=== PATIENT | female | born 1935 | race Caucasian/White ===

== ENCOUNTER 2016-05-16 14:59 | Emergency (ER) | payer OTHER ==
[~2016-05-16] VITALS: Ht 160 cm; Wt 98.9 kg
[~2016-05-16 14:59] MED LIST: AMIT50TA3 PO; AMLO-114 PO; APR50 PO; ASPEC81 PO; ATOR-54 PO; CALC0.2510 PO; CITA20TA9 PO; CLTP PO; CRG25 PO; CTP1 PO; ESTR1CRE TOP; FRS/40 PO; GLIP-172 PO; ISR40 PO; KFLHP PO; MULT-506 PO; NRN100 PO; POTA20TA13 PO
[2016-05-16 15:01] VITALS: BP 195/84; PULSE 55; TEMP 36.5; O2SAT 97; Ht 160 cm; Wt 98.9 kg
--- NOTE | 2016-05-16 15:47 | EMERGENCY ROOM VISIT NOTE ---
ED Visit Note First contact with patient: 15:13 Patient evaluated with physician medical library assistant. Patient notes mechanical fall contusing her left lateral humerus. She is noted to have a history of easy bruising and bleeding on aspirin. Agree with management and plan for x-ray and symptomatic management.
[2016-05-16] MEDS ORDERED: HYDR100T3 PO (15:57)
[2016-05-16] MEDS ORDERED: AMT100 PO (15:57)
[2016-05-16] MEDS ORDERED: PRMVC PV (15:57)
[2016-05-16] MEDS ORDERED: CALC-354 PO (15:57)
[2016-05-16] MEDS ORDERED: TRIATAB3 PO (15:57)
[2016-05-16] MEDS ORDERED: ASPI81TA28 PO (15:57)
[2016-05-16] MEDS ORDERED: CRG25 PO (15:57)
[2016-05-16] MEDS ORDERED: CYM30 PO (15:57)
--- NOTE | 2016-05-16 16:02 | DIAGNOSTIC IMAGING REPORT ---
LEFT HUMERUS 2 VIEWS CLINICAL HISTORY: Left arm injury. Bruising. FINDINGS: AP and lateral views of the left humerus are obtained. No prior studies are available for comparison at the time of dictation. The skeletal structures are osteopenic. No left humeral fracture is identified. The elbow and shoulder joints are grossly maintained. Arthritic change is present in the greater tuberosity of the humeral head. There is significant soft tissue edema identified in the left upper extremity around the proximal humeral diaphysis. The partially imaged left lung parenchyma appears clear. IMPRESSION: 1. Generalized osteopenia with no radiographic evidence of left humeral fracture. 2. There is marked soft tissue edema identified in the proximal left upper extremity, likely representing contusion/hematoma. Electronically signed by: Wai Villanueva M.D. 05/16/2016 4:00 PM Dictated Date/Time: 05/16/2016 3:58 PM
--- NOTE | 2016-05-16 16:11 | EMERGENCY ROOM VISIT NOTE ---
ED Visit Note First contact with patient: 15:13 CHIEF COMPLAINT: Arm pain HISTORY OF PRESENT ILLNESS: This 80-year-old female patient presents to the emergency department ambulatory complaining of pain in the left arm. The patient states that she missed a step and fell this morning, striking her left arm on a dresser. She reports pain as well as significant bruising and swelling in the upper portion of the left arm. She has full range of motion of the shoulder and elbow. The patient states the pain is throbbing and 7/10. The patient has taken no medication for relief of the pain. No previous significant previous shoulder disease or injury. No numbness or tingling. She denies neck or back pain. No chest pain or shortness of breath. No abdominal pain or nausea/ vomiting. No cough. REVIEW OF SYSTEMS: A 6 system review of systems was performed with positives and pertinent negatives in the HPI. ALLERGIES: See EMR MEDICATIONS: See med list PMH: Diabetes, heart disease, hypertension, hysterectomy, kidney disease SOCIAL HISTORY: The patient lives locally by herself. Nonsmoker, denies alcohol use. PHYSICAL EXAM: Vital Signs: Reviewed nurse's notes, vital signs stable. GENERAL : This is a 80-year-old female, in no acute distress, but appears to be in pain , well-developed, well-nourished. MUSCULOSKELETAL: There is no deformity of the left arm. There is a large area of ecchymosis and significant swelling to the proximal left humerus. Full range of motion of the shoulder and elbow. There is tenderness over the proximal left humerus, but no tenderness over the shoulder, elbow or forearm. Front End Developer Javascript Html Css strength 5/5. Radial pulse 2+. NECK: No tenderness to palpation over the cervical spine. HEART: Regular rate and rhythm without murmurs gallops or rubs. LUNGS: Clear to auscultation bilaterally without wheezes, rales or rhonchi. No accessory muscle use. No retractions. NEURO: The patient is alert and oriented to person, place, and time. Normal sensation to light and sharp touch. Capillary refill less than 2 seconds. RADIOGRAPHIC FINDINGS: LEFT HUMERUS 2 VIEWS CLINICAL HISTORY: Left arm injury. Bruising. FINDINGS: AP and lateral views of the left humerus are obtained. No prior studies are available for comparison at the time of dictation. The skeletal structures are osteopenic. No left humeral fracture is identified. The elbow and shoulder joints are grossly maintained. Arthritic change is present in the greater tuberosity of the humeral head. There is significant soft tissue edema identified in the left upper extremity around the proximal humeral diaphysis. The partially imaged left lung parenchyma appears clear. IMPRESSION: 1. Generalized osteopenia with no radiographic evidence of left humeral fracture. 2. There is marked soft tissue edema identified in the proximal left upper extremity, likely representing contusion/hematoma. EMERGENCY DEPARTMENT COURSE: I examined the patient. An X-ray of the left humerus was reviewed by myself and radiology and shows no fractures. Clinically , the patient has a hematoma. She does have good pulses and good sensation in her left arm. Compartment syndrome precautions were reviewed with the patient. Conservative measures were discussed. The patient was instructed to follow- up with her primary care provider or orthopedics as needed. She was offered pain medication but declined. She verbalized understanding of my assessment and treatment plan and was discharged home in good condition. The patient was independently evaluated by Dr. German, ED attending physician, who agreed with my assessment and treatment plan. DIAGNOSIS: Hematoma of left arm Problem List Medical Problems: (1) CHF (congestive heart failure) Status: Chronic (2) Diabetes mellitus, type II Status: Chronic (3) Fibromyalgia Status: Chronic (4) Hypertension Status: Chronic Current/Historical Medications Scheduled Amitriptyline HCl (Amitriptyline HCl), 100 MG PO DAILY Aspirin (Aspirin Ec), 81 MG PO DAILY Atorvastatin (Lipitor), 20 MG PO DAILY Calcitriol (Rocaltrol Cap), 0.25 MCG PO DAILY Calcium Carbonate-Cholecalcife (Caltrate 600+D), BID Carvedilol (Carvedilol), 25 MG PO BID Clonidine HCl (Clonidine HCl), 0.1 MG PO BID Duloxetine HCl (Duloxetine HCl), 30 MG PO DAILY Gabapentin (Gabapentin), 200 MG PO BID Glipizide (Glipizide Xl), 2.5 MG PO DAILY Hydralazine HCl (Hydralazine HCl), 100 MG PO TID Multivitamin (Multivitamin), 1 TAB PO DAILY Potassium Chloride Microencaps (Potassium Chloride Er), 20 MEQ PO BID Triamterene/Hctz (Triamterene/Hctz 37.5-25MG), 1 TAB PO DAILY Scheduled PRN Estrogens, Conjugated (Premarin), 1 APPL PV UD PRN for DRYNESS Allergies Coded Allergies: Alendronate (Verified Allergy, Unknown, UNKNOWN, 05/16/16) Cisapride (Verified Allergy, Unknown, UNKNOWN, 05/16/16) Diazepam (Verified Allergy, Unknown, UNKNOWN, 05/16/16) Nabumetone (Verified Allergy, Unknown, UNKNOWN, 05/16/16) Phenazopyridine (Verified Allergy, Unknown, UNKNOWN, 05/16/16) Sulindac (Verified Allergy, Unknown, UNKNOWN, 05/16/16) Vital Signs Date Time Temp Pulse Resp B/P Pulse Ox O2 Delivery O2 Flow Rate FiO2 05/16/16 15:01 36.5 55 18 195/84 97 Room Air Departure Information Impression Primary Impression: Traumatic hematoma of left upper arm Dispostion Home / Self-Care Condition GOOD Referrals Nile Alan M.D. (PCP) Patient Instructions My [facility] Additional Instructions You have been treated in the Emergency Department for a Hematoma of your arm. For pain control, you can use the following [id number] medicines (if >12 yo): - Regular strength (325mg/tab) Tylenol (acetaminophen) 2 tabs every 4-6 hours as needed. Do not exceed 12 tablets in a 24 hour period. Avoid taking more than 4 grams (4000 mg) of Tylenol per day. This includes any other sources of acetaminophen you may take on a regular basis. - Regular strength (200 mg/tab) Advil (ibuprofen) 1-2 tabs every 4-6 hours as needed. Do not exceed a dose of 3200 mg per day. If this is a recent injury (<24 hrs), ice can be applied to the area of pain for the first 3 days to help decrease pain and inflammation. Follow-up with your primary care provider or orthopedics for continued pain. Return to the Emergency Department if your current symptoms worsen despite treatment course outlined above, or if you develop any of the following symptoms : intractable pain despite aforementioned treatment course or new onset of numbness or tingling of the arm.
== END 2016-05-16 16:23 | disposition home or self-care (01) ==
LOC: C.EDB 15:00 → C.EDD 16:23
DX: S40.022A Contusion of left upper arm, initial encounter (principal); E11.9 Type 2 diabetes mellitus without complications; I11.0 Hypertensive heart disease with heart failure; I50.9 Heart failure, unspecified; M79.7 Fibromyalgia; Z79.899 Other long term (current) drug therapy; Z79.84 Long term (current) use of oral hypoglycemic drugs; Z79.82 Long term (current) use of aspirin; W01.190A Fall on same level from slipping, tripping and stumbling with subsequent striking against furniture, initial encounter; Y99.8 Other external cause status

== ENCOUNTER → 2016-06-03 | Outpatient (CLI) | payer OTHER ==
[~2016-06-03] MED LIST changes: -AMIT50TA3 PO; -AMLO-114 PO; +AMT100 PO; -APR50 PO; -ASPEC81 PO; +ASPI81TA28 PO; +CALC-354 PO; -CITA20TA9 PO; +CLOB-77 TOP; +CLOP1TAB15 PO; -CLTP PO; +CYM30 PO; +CYM60 PO; +DOCU50CA10 PO; -ESTR1CRE TOP; -FRS/40 PO; +HYDR100T3 PO; -ISR40 PO; -KFLHP PO; +LSX20 PO; +PRMVC PV; +SPRN100 PO; +TRIATAB3 PO
[2016-06-03 17:26] LABS: BASO % 0.4 %; BASO ABS # 0.03 K/uL (0-0.2); COMPLETE YES; HEMATOCRIT 42.2 % (37-47); IG% 0.1 %; LYMPH % 17.8 %; LYMPH ABS # 1.26 K/uL (1.2-3.4); MEAN CELL VOLUME 92.7 fL (80-100); MEAN CORPUSCULAR HEMOGLOBIN 31.2 pg (25-34); MEAN CORPUSCULAR HGB CONC 33.6 g/dl (32-36); MEAN PLATELET VOLUME 9.8 fL (7.4-10.4); MONO % 10.7 %; PLATELET COUNT 301 K/uL (130-400); RED BLOOD COUNT 4.55 M/uL (4.2-5.4); WHITE BLOOD COUNT 7.07 K/uL (4.8-10.8)
[2016-06-03 17:32] LABS: ALT/SGPT 26 U/L (12-78); BLOOD UREA NITROGEN 22 mg/dl (7-18); BUN/CREATININE RATIO 18.5 (10-20); CALCIUM 9.4 mg/dl (8.5-10.1); CARBON DIOXIDE 27 mmol/L (21-32); CHLORIDE 100 mmol/L (98-107); CHOLESTEROL 120 mg/dl (0-200); GLUCOSE 116 mg/dl (70-99); POTASSIUM 4.1 mmol/L (3.5-5.1); SODIUM 137 mmol/L (136-145)
[2016-06-03 17:43] LABS: ALB/GLOB RATIO 0.8 (0.9-2); ALKALINE PHOSPHATASE 103 U/L (45-117); AST/SGOT 18 U/L (15-37); CHOLESTEROL/HDL RATIO 2.1; HDL CHOLESTEROL 56 mg/dl; LDL CHOLESTEROL CALCULATED 41 mg/dl; TRIGLYCERIDES 113 mg/dl (0-150); VERY LOW DENSITY LIPOPROT CALC 23 mg/dl
[2016-06-03 17:55] LABS: ESTIMATED AVERAGE GLUCOSE 126 mg/dl; HA1C FLAG Normal (Normal)
== END | disposition home or self-care (01) ==
LOC: C.LABBFT 17:55
PROVIDERS: ATTEND Internal Medicine
DX: E11.9 Type 2 diabetes mellitus without complications (principal); E78.5 Hyperlipidemia, unspecified

== ENCOUNTER → 2016-08-21 | Outpatient (CLI) | payer OTHER ==
[~2016-08-21] MED LIST changes: +CIPR1TAB11 PO
[2016-08-21 16:51] LABS: BASO % 0.6 %; BASO ABS # 0.04 K/uL (0-0.2); COMPLETE YES; EOS % 5.5 %; HEMATOCRIT 43.7 % (37-47); IG% 0.1 %; LYMPH % 21.3 %; LYMPH ABS # 1.52 K/uL (1.2-3.4); MEAN CELL VOLUME 93.2 fL (80-100); MEAN CORPUSCULAR HEMOGLOBIN 30.3 pg (25-34); MEAN CORPUSCULAR HGB CONC 32.5 g/dl (32-36); MEAN PLATELET VOLUME 9.5 fL (7.4-10.4); MONO % 11.7 %; NEUT % 60.8 %; PLATELET COUNT 338 K/uL (130-400); RED BLOOD COUNT 4.69 M/uL (4.2-5.4); WHITE BLOOD COUNT 7.15 K/uL (4.8-10.8)
[2016-08-21 17:07] LABS: BLOOD UREA NITROGEN 16 mg/dl (7-18); CALCIUM 9.3 mg/dl (8.5-10.1); CARBON DIOXIDE 25 mmol/L (21-32); CHLORIDE 106 mmol/L (98-107); GLUCOSE 104 mg/dl (70-99); POTASSIUM 3.7 mmol/L (3.5-5.1); SODIUM 142 mmol/L (136-145)
[2016-08-21 17:10] LABS: URINE APPEARANCE CLOUDY (CLEAR); URINE BILIRUBIN NEG (NEG); URINE COLOR YELLOW; URINE EPITHELIAL CELL AUTO >30 /lpf (0-5); URINE NITRITE POS (NEG); URINE SPECIFIC GRAVITY 1.016 (1.000-1.030); UROBILINOGEN NEG (NEG)
[2016-08-21 17:23] LABS: MANUAL MICROSCOPIC REQUIRED? NO; REVIEW REQ? NO
[2016-08-21 17:39] LABS: URINE PROTIEN/CREAT RATIO 0.3 (0-0.2); URINE TOTAL PROTEIN 22.7 mg/dl (0-11.9)
== END | disposition home or self-care (01) ==
LOC: C.LABBFT 15:19
PROVIDERS: ATTEND Internal Medicine
DX: I10 Essential (primary) hypertension (principal); N28.9 Disorder of kidney and ureter, unspecified; I70.1 Atherosclerosis of renal artery

== ENCOUNTER → 2016-08-27 | Outpatient (CLI) | payer OTHER ==
--- NOTE | 2016-08-27 10:10 | DIAGNOSTIC IMAGING REPORT ---
ULTRASOUND KIDNEYS AND BLADDER CLINICAL HISTORY: Hypertension. Nonfunctioning kidney. COMPARISON STUDY: No priors. TECHNIQUE: Real-time, grayscale, and color flow sonography of the kidneys and bladder is performed. Images are reviewed in the transverse and longitudinal planes. FINDINGS: Kidneys: The right kidney is markedly atrophic and echogenic. The left kidney demonstrates mild cortical atrophy. The right kidney measures 6.4 x 3.3 x 3.4 cm and the left kidney measures 11.4 x 5.6 x 6.1 cm. There is no hydronephrosis. No shadowing renal calculi are identified. A 1.2 cm simple cyst is noted in the right kidney. A 1.1 cm cyst is present in the left upper pole. There is no sonographic evidence of contour deforming renal mass lesion. No perinephric fluid is identified. Bladder: The bladder is partially decompressed and grossly unremarkable. Only a left ureteral jet was seen. IMPRESSION: 1. The right kidney is markedly atrophic and echogenic. 2. The left kidney demonstrates only mild cortical atrophy. There is no hydronephrosis. 3. The bladder was decompressed and grossly unremarkable. Only a left ureteral jet was seen. Electronically signed by: Wai Villanueva M.D. 08/27/2016 10:09 AM Dictated Date/Time: 08/27/2016 10:02 AM
== END | disposition home or self-care (01) ==
LOC: C.ULTR 09:22
PROVIDERS: ATTEND Internal Medicine
DX: I10 Essential (primary) hypertension (principal); I70.1 Atherosclerosis of renal artery; N28.9 Disorder of kidney and ureter, unspecified

== ENCOUNTER → 2016-10-03 | Outpatient (CLI) | payer OTHER ==
[2016-10-02 17:08] LABS: BLOOD UREA NITROGEN 19 mg/dl (7-18); BUN/CREATININE RATIO 14.5 (10-20); CALCIUM 9.2 mg/dl (8.5-10.1); CARBON DIOXIDE 26 mmol/L (21-32); CHLORIDE 107 mmol/L (98-107); GLUCOSE 123 mg/dl (70-99); MAGNESIUM 2.5 mg/dl (1.8-2.4); PHOSPHORUS 3.9 mg/dl (2.5-4.9); POTASSIUM 4.3 mmol/L (3.5-5.1); SODIUM 141 mmol/L (136-145)
[~2016-10-03] MED LIST changes: -CIPR1TAB11 PO
== END | disposition home or self-care (01) ==
LOC: C.LABBFT 15:24
PROVIDERS: ATTEND Internal Medicine Nephrology
DX: N18.3 Chronic kidney disease, stage 3 (moderate) (principal)

== ENCOUNTER → 2016-10-19 | Outpatient (CLI) | payer OTHER ==
[2016-10-19 17:38] LABS: BLOOD UREA NITROGEN 35 mg/dl (7-18); BUN/CREATININE RATIO 22.1 (10-20); CALCIUM 9.5 mg/dl (8.5-10.1); CARBON DIOXIDE 24 mmol/L (21-32); CHLORIDE 103 mmol/L (98-107); GLUCOSE 229 mg/dl (70-99); MAGNESIUM 1.9 mg/dl (1.8-2.4); POTASSIUM 4.4 mmol/L (3.5-5.1); SODIUM 136 mmol/L (136-145)
[2016-10-19 17:39] LABS: PHOSPHORUS 3.4 mg/dl (2.5-4.9)
== END | disposition home or self-care (01) ==
LOC: C.LABBFT 15:27
PROVIDERS: ATTEND Internal Medicine Nephrology
DX: N18.3 Chronic kidney disease, stage 3 (moderate) (principal)

== ENCOUNTER → 2016-11-17 | Outpatient (CLI) | payer OTHER ==
[2016-11-17 17:51] LABS: BLOOD UREA NITROGEN 20 mg/dl (7-18); BUN/CREATININE RATIO 17.1 (10-20); CALCIUM 9.6 mg/dl (8.5-10.1); CARBON DIOXIDE 27 mmol/L (21-32); CHLORIDE 102 mmol/L (98-107); GLUCOSE 82 mg/dl (70-99); PHOSPHORUS 3.6 mg/dl (2.5-4.9); POTASSIUM 3.8 mmol/L (3.5-5.1); SODIUM 139 mmol/L (136-145)
== END | disposition home or self-care (01) ==
LOC: C.LABBFT 12:31
PROVIDERS: ATTEND Internal Medicine Nephrology
DX: N18.3 Chronic kidney disease, stage 3 (moderate) (principal)

== ENCOUNTER 2016-12-08 11:28 | Emergency (ER) | payer OTHER ==
[~2016-12-08 11:28] MED LIST changes: -CLOB-77 TOP; -CLOP1TAB15 PO; -CYM60 PO; -DOCU50CA10 PO; -LSX20 PO; -SPRN100 PO
[2016-12-08 11:51] VITALS: TEMP 36.6; Ht 162.6 cm
[2016-12-08 14:10] LABS: BASO % 0.3 %; BASO ABS # 0.03 K/uL (0-0.2); COMPLETE YES; EOS % 3.1 %; HEMATOCRIT 29.9 % (37-47); IG% 0.4 %; LYMPH % 17.6 %; LYMPH ABS # 1.73 K/uL (1.2-3.4); MEAN CELL VOLUME 93.7 fL (80-100); MEAN CORPUSCULAR HGB CONC 33.1 g/dl (32-36); MEAN PLATELET VOLUME 9.2 fL (7.4-10.4); MONO % 9.9 %; NEUT % 68.7 %; PLATELET COUNT 323 K/uL (130-400); RED BLOOD COUNT 3.19 M/uL (4.2-5.4); WHITE BLOOD COUNT 9.85 K/uL (4.8-10.8)
[2016-12-08 14:20] LABS: PARTIAL THROMBOPLASTIN RATIO 0.9; PROTHROMBIN TIME (PATIENT) 10.4 SECONDS (9.0-12.0)
[2016-12-08 14:31] LABS: BLOOD UREA NITROGEN 29 mg/dl (7-18); BUN/CREATININE RATIO 20.8 (10-20); CALCIUM 9.7 mg/dl (8.5-10.1); CARBON DIOXIDE 27 mmol/L (21-32); CHLORIDE 100 mmol/L (98-107); GLUCOSE 129 mg/dl (70-99); SODIUM 135 mmol/L (136-145)
[2016-12-08] MEDS ORDERED: LSX20 PO (16:00)
[2016-12-08] MEDS ORDERED: CLOP1TAB15 PO (16:00)
[2016-12-08] MEDS ORDERED: SPRN100 PO (16:00)
[2016-12-08] MEDS ORDERED: CLOB-77 TOP (16:00)
[2016-12-08] MEDS ORDERED: DOCU50CA10 PO (16:00)
[2016-12-08] MEDS ORDERED: CYM60 PO (16:00)
[2016-12-08 16:08] VITALS: BP 131/63; PULSE 67; O2SAT 95
--- NOTE | 2016-12-08 16:11 | DIAGNOSTIC IMAGING REPORT ---
ART DOP DUPLEX LW EXT UNI CLINICAL HISTORY: swelling rle-r/o pseudo pain. Edema. TECHNIQUE: Ultrasound COMPARISON STUDY: 05/29/2010 FINDINGS: No evidence for pseudoaneurysm or vascular malformation. 5 x 4 x 2 cm collection adjacent to a prior operative site possibly relating to hematoma. IMPRESSION: Probable hematoma right inguinal region. No evidence of pseudoaneurysm. The above report was generated using voice recognition software. It may contain grammatical, syntax or spelling errors. Electronically signed by: Alirio Mehta M.D. 12/08/2016 4:10 PM Dictated Date/Time: 12/08/2016 4:07 PM
[2016-12-08] MEDS ORDERED: OPTIRAY 320 IV PRN (16:30)
--- NOTE | 2016-12-08 16:58 | DIAGNOSTIC IMAGING REPORT ---
ABD/PELVIS IV CONTRAST ONLY CT DOSE: 994.37 mGy.cm HISTORY: Pain lower abd pain w/ recent renal art stent and drop in hgb TECHNIQUE: Multiaxial CT images of the abdomen and pelvis were performed following the use of intravenous contrast. A dose lowering technique was utilized adhering to the principles of ALARA. COMPARISON STUDY: None. FINDINGS: Mild bibasilar atelectasis. Mild fatty infiltration of liver. Gallbladder appears to be gallstone filled. Mild fatty replacement of the pancreas. Atrophy of the right kidney. Left renal arterial stent proximal involving the proximal left renal artery. Enhancement characteristics of the left kidney are unremarkable. There is a small 1 cm upper pole left renal cyst. Several much smaller renal cysts are present bilaterally. Bowel pattern overall is nonobstructive. Findings of mild chronic sigmoid colonic diverticulosis. There is no evidence for acute diverticulitis. Appears to be probable hematoma anterior to the right hip and right upper thigh region. Maximum CT measurements are approximately 6.5 cm. A smaller hematoma versus reactive node is present medial to the larger hematoma measuring 3.0 cm. Bladder is midline. There are no contained calcifications. Is mild inflammatory change of the subcutaneous fat overlying the right thigh suggesting a mild cellulitis. IMPRESSION: 1. Right inguinal and anterior thigh hematoma.. 2. Atrophy right kidney. 3. Normal enhancement characteristics of the left kidney with placement of a left renal proximal arterial stent. 4. Gallstone filled gallbladder. 5. Fatty infiltration of liver. 6. Mild chronic sigmoid diverticulosis. 7. 2.5 cm left adrenal adenoma The above report was generated using voice recognition software. It may contain grammatical, syntax or spelling errors. Electronically signed by: Alirio Mehta M.D. 12/08/2016 4:56 PM Dictated Date/Time: 12/08/2016 4:50 PM
--- NOTE | 2016-12-08 17:25 | EMERGENCY ROOM VISIT NOTE ---
History Report prepared by Winnie: Sarita De La O Under the Supervision of: Dr. Micky Armas D.O. First contact with patient: 13:22 Chief Complaint: LEG PAIN,LEG INJURY Stated Complaint: LARGE BRUISE ON WHOLE LEG History of Present Illness The patient is a 81 year old female who presents to the Emergency Room with complaints of worsening right leg pain for the past 4 days. The patient only has her left kidney. She has two arteries to the left kidney and had two stents placed 4 days ago. She states that after the surgery she noticed some bruising to her right groin and thigh. The patient states that her bruising has worsened over the past few days and is more painful today. She rates her current pain as a 7/10 in severity. She called her surgeon in [place] today and was advised to come to the ED for further evaluation. Pt denies headache, fevers, chest pain, shortness of breath, nausea, vomiting, diarrhea, abdominal pain, pain with urination, and melena. She was recently started on Plavix. Source of History: patient Onset: 4 days ago Position: leg (right) Symptom Intensity: 7/10 Quality: other (bruising) Timing: worsening Modifying Factors (Worsening): other (recent surgery) Associated Symptoms: No fevers, No headache, No chest pain, No SOB, No nausea, No vomiting, No abdominal pain, No melena, No diarrhea, No urinary symptoms Review of Systems See HPI for pertinent positives & negatives. A total of 10 systems reviewed and were otherwise negative. Past Medical & Surgical Medical Problems: (1) CHF (congestive heart failure) (2) Diabetes mellitus, type II (3) Fibromyalgia (4) Hypertension Family History Non-pertinent due to advanced age. Social History Smoking Status: Never Smoker Drug Use: none Marital Status: Housing Status: lives alone Occupation Status: retired Current/Historical Medications Scheduled Amitriptyline HCl (Amitriptyline HCl), 100 MG PO DAILY Aspirin (Aspirin Ec), 81 MG PO DAILY Atorvastatin (Lipitor), 20 MG PO DAILY Calcitriol (Rocaltrol Cap), 0.25 MCG PO DAILY Calcium Carbonate-Cholecalcife (Caltrate 600+D), 1 TAB PO BID Carvedilol (Carvedilol), 25 MG PO BID Clobetasol Propionate (Temovate), 1 APPLN TOP BID Clonidine HCl (Clonidine HCl), 0.1 MG PO BID Clopidogrel (Plavix), 75 MG PO DAILY Duloxetine HCl (Duloxetine HCl), 60 MG PO DAILY Furosemide (Furosemide), 20 MG PO DAILY Glipizide (Glipizide Xl), 2.5 MG PO DAILY Hydralazine HCl (Hydralazine HCl), 100 MG PO TID Multivitamin (Multivitamin), 1 TAB PO DAILY Spironolactone (Spironolactone), 100 MG PO DAILY Scheduled PRN Docusate Sodium (Colace Clear), 50 MG PO DAILY PRN for Constipation Estrogens, Conjugated (Premarin), 1 APPL PV UD PRN for DRYNESS Allergies Coded Allergies: Alendronate (Verified Allergy, Unknown, UNKNOWN, 05/16/16) Cisapride (Verified Allergy, Unknown, UNKNOWN, 05/16/16) Diazepam (Verified Allergy, Unknown, UNKNOWN, 05/16/16) Nabumetone (Verified Allergy, Unknown, UNKNOWN, 05/16/16) Phenazopyridine (Verified Allergy, Unknown, UNKNOWN, 05/16/16) Sulindac (Verified Allergy, Unknown, UNKNOWN, 05/16/16) Physical Exam Vital Signs Date Time Temp Pulse Resp B/P (MAP) Pulse Ox O2 Delivery O2 Flow Rate FiO2 12/08/16 16:08 67 20 131/63 95 Room Air 12/08/16 13:22 61 18 111/63 97 Room Air 12/08/16 11:51 36.6 59 18 113/62 96 Room Air Physical Exam GENERAL: alert, sitting up in bed, disheveled, chronically ill appearing, well nourished, no distress, non-toxic EYE EXAM: normal conjunctiva OROPHARYNX: no exudate, no erythema, lips, buccal mucosa, and tongue normal and mucous membranes are moist NECK: supple, no nuchal rigidity, no adenopathy, non-tender LUNGS: Clear to auscultation. Normal chest wall mechanics HEART: no murmurs, S1 normal and S2 normal ABDOMEN: abdomen soft, non-tender, normo-active bowel sounds, no masses, no rebound or guarding. Mild bruising in lower right pelvis. RECTAL: Heme negative. BACK: Back is symmetrical on inspection and there is no deformity, no midline tenderness, no CVA tenderness. SKIN: no rashes and no bruising UPPER EXTREMITIES: upper extremities are grossly normal. LOWER EXTREMITIES: Bruising on the right medial thigh tracking to just proximal to the right knee. DP 2/4, gross sensation intact, FROM of the hip, knee, and ankle. NEURO EXAM: Normal sensorium, cranial nerves II-XII grossly intact, normal speech, no gross weakness of arms, no gross weakness of legs. Medical Decision & Procedures ER Provider Diagnostic Interpretation: Radiology results as stated below per my review and the radiologist's interpretation: ART DOP DUPLEX LW EXT UNI CLINICAL HISTORY: swelling rle-r/o pseudo pain. Edema. TECHNIQUE: Ultrasound COMPARISON STUDY: 05/29/2010 FINDINGS: No evidence for pseudoaneurysm or vascular malformation. 5 x 4 x 2 cm collection adjacent to a prior operative site possibly relating to hematoma. IMPRESSION: Probable hematoma right inguinal region. No evidence of pseudoaneurysm. The above report was generated using voice recognition software. It may contain grammatical, syntax or spelling errors. Electronically signed by: Alirio Mehta M.D. 12/08/2016 4:10 PM Dictated Date/Time: 12/08/2016 4:07 PM ABD/PELVIS IV CONTRAST ONLY CT DOSE: 994.37 mGy.cm HISTORY: Pain lower abd pain w/ recent renal art stent and drop in hgb TECHNIQUE: Multiaxial CT images of the abdomen and pelvis were performed following the use of intravenous contrast. A dose lowering technique was utilized adhering to the principles of ALARA. COMPARISON STUDY: None. FINDINGS: Mild bibasilar atelectasis. Mild fatty infiltration of liver. Gallbladder appears to be gallstone filled. Mild fatty replacement of the pancreas. Atrophy of the right kidney. Left renal arterial stent proximal involving the proximal left renal artery. Enhancement characteristics of the left kidney are unremarkable. There is a small 1 cm upper pole left renal cyst. Several much smaller renal cysts are present bilaterally. Bowel pattern overall is nonobstructive. Findings of mild chronic sigmoid colonic diverticulosis. There is no evidence for acute diverticulitis. Appears to be probable hematoma anterior to the right hip and right upper thigh region. Maximum CT measurements are approximately 6.5 cm. A smaller hematoma versus reactive node is present medial to the larger hematoma measuring 3.0 cm. Bladder is midline. There are no contained calcifications. Is mild inflammatory change of the subcutaneous fat overlying the right thigh suggesting a mild cellulitis. IMPRESSION: 1. Right inguinal and anterior thigh hematoma.. 2. Atrophy right kidney. 3. Normal enhancement characteristics of the left kidney with placement of a left renal proximal arterial stent. 4. Gallstone filled gallbladder. 5. Fatty infiltration of liver. 6. Mild chronic sigmoid diverticulosis. 7. 2.5 cm left adrenal adenoma The above report was generated using voice recognition software. It may contain grammatical, syntax or spelling errors. Electronically signed by: Alirio Mehta M.D. 12/08/2016 4:56 PM Dictated Date/Time: 12/08/2016 4:50 PM Laboratory Results 12/08/16 13:50 Red Blood Count 3.19, Mean Corpuscular Volume 93.7, Mean Corpuscular Hemoglobin 31.0, Mean Corpuscular Hemoglobin Concent 33.1, Mean Platelet Volume 9.2, Neutrophils (%) (Auto) 68.7, Lymphocytes (%) (Auto) 17.6, Monocytes (%) (Auto) 9.9, Eosinophils (%) (Auto) 3.1, Basophils (%) (Auto) 0.3, Neutrophils # (Auto) 6.76, Lymphocytes # (Auto) 1.73, Monocytes # (Auto) 0.98, Eosinophils # (Auto) 0.31, Basophils # (Auto) 0.03 12/08/16 13:50 Test 12/08/16 13:50 White Blood Count 9.85 K/uL (4.8-10.8) Red Blood Count 3.19 M/uL (4.2-5.4) Hemoglobin 9.9 g/dL (12.0-16.0) Hematocrit 29.9 % (37-47) Mean Corpuscular Volume 93.7 fL (80-100) Mean Corpuscular Hemoglobin 31.0 pg (25-34) Mean Corpuscular Hemoglobin Concent 33.1 g/dl (32-36) Platelet Count 323 K/uL (130-400) Mean Platelet Volume 9.2 fL (7.4-10.4) Neutrophils (%) (Auto) 68.7 % Lymphocytes (%) (Auto) 17.6 % Monocytes (%) (Auto) 9.9 % Eosinophils (%) (Auto) 3.1 % Basophils (%) (Auto) 0.3 % Neutrophils # (Auto) 6.76 K/uL (1.4-6.5) Lymphocytes # (Auto) 1.73 K/uL (1.2-3.4) Monocytes # (Auto) 0.98 K/uL (0.11-0.59) Eosinophils # (Auto) 0.31 K/uL (0-0.5) Basophils # (Auto) 0.03 K/uL (0-0.2) RDW Standard Deviation 46.4 fL (36.4-46.3) RDW Coefficient of Variation 13.6 % (11.5-14.5) Immature Granulocyte % (Auto) 0.4 % Immature Granulocyte # (Auto) 0.04 K/uL (0.00-0.02) Prothrombin Time 10.4 SECONDS (9.0-12.0) Prothromb Time International Ratio 1.0 (0.9-1.1) Activated Partial Thromboplast Time 22.6 SECONDS (21.0-31.0) Partial Thromboplastin Ratio 0.9 Anion Gap 8.0 mmol/L (3-11) Estimated GFR () 41.0 Estimated GFR (Non- 35.4 BUN/Creatinine Ratio 20.8 (10-20) Calcium Level 9.7 mg/dl (8.5-10.1) Laboratory results per my review. ED Course ED COURSE: Vital signs were reviewed and showed bradycardic. The patients medical record was reviewed The above diagnostic studies were performed and reviewed. ED treatments and interventions as stated above. 1326: The patient was evaluated in room B11B. A complete history and physical examination was performed. 1349: I spoke with Dr. Escobar of vascular at [facility]. We discussed the patient 's case. They had advised the patient to come to their office for evaluation. 1451: I updated the patient on her results. 1656: Rectal exam performed with resident at bedside. 1705: Upon reevaluation, the patient is doing well. I discussed my findings with the patient and she understands and agrees with the treatment plan. Based on the patients age, coexisting illnesses, exam and lab findings the decision to treat as an outpatient was made. The patient remained stable while under my care. The patient appeared well at the time of discharge. Medical Decision Differential diagnosis: Etiologies such as DVT, musculoskeletal, infection, joint effusion, trauma, lymphedema, idiopathic, CHF, as well as others were entertained. Patient is a an 81-year-old female that presents to ER following having a stent placed in her left renal artery at [facility] on Wednesday. She notes she was discharged that day and had bruising in her right groin/thigh. The bruising has worsened. She discussed this with this with vascular surgery and was referred into the ER. I did discuss the case w/ vasc surg from [facility] as well and agreed with ultrasound and workup. Labs show that hemoglobin dropped from 12 to 10. She was heme negative. Ultrasound shows no pseudoaneurysm. DP is intact on the right. CT of abdomen and pelvis was performed with a drop in hemoglobin and bruising in her abdomen. CT was unremarkable but did show a hematoma in the right thigh. Patient was updated in regards to her findings. She rested comfortably. She was discharged to follow-up with PCP and vascular surgery. Discussed with Pt concerning signs and symptoms to watch out for. Pt was instructed to follow up with their PCP and discussed with the patient their option to return to the ED at anytime for persistent or worsening symptoms. The appropriate anticipatory guidance and out-patient management, including indications for return to the emergency department, were explained at length to the patient and understood. Medication Reconcilliation Current Medication List: was personally reviewed by me Blood Pressure Screening Patient's blood pressure: Normal blood pressure Consults Time Called: 1341 Consulting Physician: Dr. Escobar Returned Call: [address] Escobar of vascular at [facility]. We discussed the patient's case. They had advised the patient to come to their office for evaluation. Impression Primary Impression: Postoperative hematoma Additional Impression: Anemia Scribe Attestation The scribe's documentation has been prepared under my direction and personally reviewed by me in its entirety. I confirm that the note above accurately reflects all work, treatment, procedures, and medical decision making performed by me. Departure Information Dispostion Home / Self-Care Referrals Nile Alan M.D. (PCP) Forms HOME CARE DOCUMENTATION FORM, IMPORTANT VISIT INFORMATION Patient Instructions ED Hematoma, [facility] Additional Instructions Please follow up with your primary care doctor/vascular surgery with in the next 24 hours. Any worsening of your symptoms, please return to the ED immediately. This includes any fevers greater than 100.4, worsening pain, increased swelling, numbness in your leg, weakness in your leg, chest pain, shortness breath, persistent nausea, vomiting, unable to eat or drink, or any other concerning signs or symptoms from your standpoint. The bruising will take several weeks to improved/resolve. Problem Qualifiers Primary Impression: Postoperative hematoma Surgical complication system/body Area: subcutaneous tissue Procedure type: non-dermatologic Qualified Codes: L76.32 - Postprocedural hematoma of skin and subcutaneous tissue following other procedure Additional Impression: Anemia Anemia type: unspecified type Qualified Codes: D64.9 - Anemia, unspecified
== END 2016-12-08 17:27 | disposition home or self-care (01) ==
LOC: C.EDB 11:30
DX: L76.32 Postprocedural hematoma of skin and subcutaneous tissue following other procedure (principal); D64.9 Anemia, unspecified; Z79.01 Long term (current) use of anticoagulants; E11.9 Type 2 diabetes mellitus without complications; M79.7 Fibromyalgia; I10 Essential (primary) hypertension; Z79.82 Long term (current) use of aspirin; Z79.899 Other long term (current) drug therapy

== ENCOUNTER → 2016-12-31 | Outpatient (CLI) | payer OTHER ==
[~2016-12-31] MED LIST changes: +CLOB-77 TOP; +CLOP1TAB15 PO; -CYM30 PO; +CYM60 PO; +DOCU50CA10 PO; +LSX20 PO; -NRN100 PO; -POTA20TA13 PO; +SPRN100 PO; -TRIATAB3 PO
[2016-12-31 17:22] LABS: HEMATOCRIT 39.3 % (37-47); MEAN CELL VOLUME 99.5 fL (80-100); MEAN CORPUSCULAR HEMOGLOBIN 31.1 pg (25-34); MEAN CORPUSCULAR HGB CONC 31.3 g/dl (32-36); MEAN PLATELET VOLUME 9.1 fL (7.4-10.4); PLATELET COUNT 315 K/uL (130-400); RED BLOOD COUNT 3.95 M/uL (4.2-5.4); WHITE BLOOD COUNT 6.94 K/uL (4.8-10.8)
[2016-12-31 17:43] LABS: BLOOD UREA NITROGEN 23 mg/dl (7-18); CALCIUM 9.5 mg/dl (8.5-10.1); CARBON DIOXIDE 25 mmol/L (21-32); CHLORIDE 106 mmol/L (98-107); GLUCOSE 114 mg/dl (70-99); MAGNESIUM 2.1 mg/dl (1.8-2.4); PHOSPHORUS 2.9 mg/dl (2.5-4.9); POTASSIUM 4.3 mmol/L (3.5-5.1); SODIUM 139 mmol/L (136-145)
== END | disposition home or self-care (01) ==
LOC: C.LABBFT 12:53
PROVIDERS: ATTEND Internal Medicine Nephrology
DX: I70.1 Atherosclerosis of renal artery (principal); S80.10XA Contusion of unspecified lower leg, initial encounter; X58.XXXA Exposure to other specified factors, initial encounter; I10 Essential (primary) hypertension

== ENCOUNTER 2017-01-28 19:26 | Emergency (ER) | payer OTHER ==
[~2017-01-28] VITALS: Ht 160 cm; Wt 91.1 kg
[2017-01-28 19:46] VITALS: TEMP 36.8; Ht 160 cm; Wt 91.1 kg
--- NOTE | 2017-01-28 20:07 | EMERGENCY ROOM VISIT NOTE ---
History First contact with patient: 19:48 Chief Complaint: FALL Stated Complaint: FALL/ HEAD PAIN, NAUSEA History of Present Illness The patient is a 81 year old female with a history of DM2, CHF, HTN, and kidney disease (only her left one is working) who was brought to the Emergency Room by ambulance due to a fall. She states that she was hosing her porch and that she "turned the wrong way" and fell onto her back. She states that she remembers falling, and denies chest pain, palpitations, shortness of breath, diaphoresis and lightheadedness beforehand. She is currently complaining of pain at the back of her head, nausea and dizziness. She states she does not check her blood sugar at home. Her daughter was present at the bedside, but did not witness the fall. She states her mother has been falling more frequently, and that she has a history of 2 previous concussions 3 years ago. She is also concerned as she feels her mother's short term memory and cognition has been slowly declining over the last few months. Review of Systems See HPI for pertinent positives & negatives. A total of 10 systems reviewed and were otherwise negative. Past Medical/Surgical History Medical Problems: (1) CHF (congestive heart failure) (2) Diabetes mellitus, type II (3) Fibromyalgia (4) Hypertension Social History Smoking Status: Former Smoker Drug Use: none Marital Status: Housing Status: lives alone Occupation Status: retired Current/Historical Medications Scheduled Amitriptyline HCl (Amitriptyline HCl), 100 MG PO DAILY Aspirin (Aspirin Ec), 81 MG PO DAILY Atorvastatin (Lipitor), 20 MG PO DAILY Calcitriol (Rocaltrol Cap), 0.25 MCG PO DAILY Calcium Carbonate-Cholecalcife (Caltrate 600+D), 1 TAB PO BID Carvedilol (Carvedilol), 25 MG PO BID Clobetasol Propionate (Temovate), 1 APPLN TOP BID Clopidogrel (Plavix), 75 MG PO DAILY Duloxetine HCl (Duloxetine HCl), 60 MG PO DAILY Glipizide (Glipizide Xl), 2.5 MG PO DAILY Hydralazine HCl (Hydralazine HCl), 100 MG PO TID Multivitamin (Multivitamin), 1 TAB PO DAILY Spironolactone (Spironolactone), 100 MG PO DAILY Scheduled PRN Docusate Sodium (Colace Clear), 50 MG PO DAILY PRN for Constipation Estrogens, Conjugated (Premarin), 1 APPL PV UD PRN for DRYNESS Physical Exam Vital Signs Date Time Temp Pulse Resp B/P (MAP) Pulse Ox O2 Delivery O2 Flow Rate FiO2 01/28/17 21:25 65 18 181/81 96 Room Air 01/28/17 20:08 63 01/28/17 19:46 36.8 65 18 184/80 96 Room Air Physical Exam HEENT: Head - normocephalic and atraumatic. She reports tenderness over the occipital area. No lacerations, no bruises. Pupils are equal, round, and reactive to light. Extraocular eye muscles are intact and sclera are anicteric. Ears - bilaterally patent canals with noninjected tympanic membranes and no evidence of hemotympanum. Nose - moist nasal mucosa without discharge. Mouth - moist buccal mucosa. Oropharynx is nonerythematous and there is no tonsillar exudate or edema noted. Neck: Supple; no JVD, nuchal rigidity, cervical lymphadenopathy, or auscultated bruits. She reports slight tenderness Heart: Regular rate and rhythm. There is a normal S1 and S2 with no murmurs, clicks, or gallops appreciated. Lungs: Clear to auscultation bilaterally with no wheezes, rales, or rhonchi. Abdomen: Soft, completely nontender, nondistended, with good bowel sounds. There are no palpable pulsatile masses or hepatosplenomegaly. There is no guarding, rigidity, or rebound noted. Extremities: No evidence of cyanosis, clubbing, or edema. There are easily palpable peripheral pulses. Neuro:The patient is awake and alert, oriented to day, time, and place. Muscle strength is 5/5 in all 4 extremities. The patient has equal sales exhibitor strength and equal pedal push and pull. There are no cerebellar signs. Medical Decision & Procedures ER Provider Diagnostic Interpretation: CT HEAD WITHOUT CONTRAST (CT) CLINICAL HISTORY: Head trauma. Change in mental status. COMPARISON STUDY: 04/02/2016 TECHNIQUE: Axial CT of the brain is performed from the vertex to the skull base. IV contrast was not administered for this examination. A dose lowering technique was utilized adhering to the principles of ALARA. CT DOSE: 638.56 mGycm FINDINGS: No intra or extra-axial mass lesions are visualized. There is no CT evidence of acute cortical infarction. There is no evidence of midline shift. There is no acute hemorrhage. No calvarial fractures are visualized. There are patchy white matter hypodensities likely on a small vessel basis. There is no evidence of pathologic ventricular dilatation. There is no evidence of acute sinusitis IMPRESSION: No acute intracranial findings Laboratory Results 01/28/17 20:10 Red Blood Count 4.40, Mean Corpuscular Volume 96.8, Mean Corpuscular Hemoglobin 32.3, Mean Corpuscular Hemoglobin Concent 33.3, Mean Platelet Volume 9.2, Neutrophils (%) (Auto) 79.0, Lymphocytes (%) (Auto) 11.6, Monocytes (%) (Auto) 6.5, Eosinophils (%) (Auto) 2.4, Basophils (%) (Auto) 0.2, Neutrophils # (Auto) 7.27, Lymphocytes # (Auto) 1.07, Monocytes # (Auto) 0.60, Eosinophils # (Auto) 0.22, Basophils # (Auto) 0.02 01/28/17 20:10 Test 01/28/17 20:04 01/28/17 20:10 01/28/17 21:07 Bedside Glucose 122 mg/dl (70-90) White Blood Count 9.21 K/uL (4.8-10.8) Red Blood Count 4.40 M/uL (4.2-5.4) Hemoglobin 14.2 g/dL (12.0-16.0) Hematocrit 42.6 % (37-47) Mean Corpuscular Volume 96.8 fL (80-100) Mean Corpuscular Hemoglobin 32.3 pg (25-34) Mean Corpuscular Hemoglobin Concent 33.3 g/dl (32-36) Platelet Count 285 K/uL (130-400) Mean Platelet Volume 9.2 fL (7.4-10.4) Neutrophils (%) (Auto) 79.0 % Lymphocytes (%) (Auto) 11.6 % Monocytes (%) (Auto) 6.5 % Eosinophils (%) (Auto) 2.4 % Basophils (%) (Auto) 0.2 % Neutrophils # (Auto) 7.27 K/uL (1.4-6.5) Lymphocytes # (Auto) 1.07 K/uL (1.2-3.4) Monocytes # (Auto) 0.60 K/uL (0.11-0.59) Eosinophils # (Auto) 0.22 K/uL (0-0.5) Basophils # (Auto) 0.02 K/uL (0-0.2) RDW Standard Deviation 50.2 fL (36.4-46.3) RDW Coefficient of Variation 14.1 % (11.5-14.5) Immature Granulocyte % (Auto) 0.3 % Immature Granulocyte # (Auto) 0.03 K/uL (0.00-0.02) Prothrombin Time 10.5 SECONDS (9.0-12.0) Prothromb Time International Ratio 1.0 (0.9-1.1) Anion Gap 7.0 mmol/L (3-11) Est Creatinine Clear Calc Drug Dose 34.6 ml/min Estimated GFR () 41.4 Estimated GFR (Non- 35.7 BUN/Creatinine Ratio 17.7 (10-20) Calcium Level 9.8 mg/dl (8.5-10.1) Urine Color YELLOW Urine Appearance TURBID (CLEAR) Urine pH 7.5 (4.5-7.5) Urine Specific Libby 1.018 (1.000-1.030) Urine Protein NEG (NEG) Urine Glucose (UA) NEG (NEG) Urine Ketones TRACE (NEG) Urine Occult Blood NEG (NEG) Urine Nitrite POS (NEG) Urine Bilirubin NEG (NEG) Urine Urobilinogen NEG (NEG) Urine Leukocyte Esterase SMALL (NEG) Urine WBC (Auto) 5-10 /hpf (0-5) Urine RBC (Auto) 0-4 /hpf (0-4) Urine Hyaline Casts (Auto) 1-5 /lpf (0-5) Urine Epithelial Cells (Auto) >30 /lpf (0-5) Urine Bacteria (Auto) 4+ (NEG) ED Course 19:30: The patient was assessed in room C9. 19:45: The case was discussed with the attending, Dr. Rome Medical Decision The patient is a 81 year old female with a history of DM2, CHF, HTN, and kidney disease who was brought to the Emergency Room by ambulance due to a fall. Differentials include a mechanical fall, hypoglycemic episode, cardiac arrhythmia, infection, vasovagal syncope, seizure. Her CT brain was negative. Further workup revealed a UTI, which could have led to her weakness and fall. She will be discharged home with antibiotics for her UTI, and counselled on using her walker so as to avoid another fall, as well as drinking plenty of fluids. Impression Primary Impression: Fall Additional Impression: Urinary tract infection Departure Information Dispostion Home / Self-Care Prescriptions Ciprofloxacin Tab (Cipro) 250 Mg Tab 250 MG PO BID for 7 Days, #14 TAB Prov: Markus Toth M.D. 01/28/17 Referrals Nile Alan M.D. (PCP) Patient Instructions My [facility] Additional Instructions You came into [facility] because you had a fall. Your head CT did not show any evidence of bleeding, however we did find out that you had a urinary tract infection. We are discharging you on 7 days of oral antibiotics to treat this infection. Please also drink plenty of water, and make sure you use your walker to prevent any further falls! Please follow up with your primary care doctor. Resident Tracking Resident Involvement: Resident Care Provided Care Provided: Adult Hospital Medicine Problem Qualifiers
[2017-01-28 20:23] LABS: BASO % 0.2 %; BASO ABS # 0.02 K/uL (0-0.2); COMPLETE YES; EOS % 2.4 %; HEMATOCRIT 42.6 % (37-47); IG% 0.3 %; LYMPH % 11.6 %; LYMPH ABS # 1.07 K/uL (1.2-3.4); MEAN CELL VOLUME 96.8 fL (80-100); MEAN CORPUSCULAR HEMOGLOBIN 32.3 pg (25-34); MEAN CORPUSCULAR HGB CONC 33.3 g/dl (32-36); MEAN PLATELET VOLUME 9.2 fL (7.4-10.4); MONO % 6.5 %; PLATELET COUNT 285 K/uL (130-400); WHITE BLOOD COUNT 9.21 K/uL (4.8-10.8)
--- NOTE | 2017-01-28 20:24 | DIAGNOSTIC IMAGING REPORT ---
CT HEAD WITHOUT CONTRAST (CT) CLINICAL HISTORY: Head trauma. Change in mental status. COMPARISON STUDY: 04/02/2016 TECHNIQUE: Axial CT of the brain is performed from the vertex to the skull base. IV contrast was not administered for this examination. A dose lowering technique was utilized adhering to the principles of ALARA. CT DOSE: 638.56 mGycm FINDINGS: No intra or extra-axial mass lesions are visualized. There is no CT evidence of acute cortical infarction. There is no evidence of midline shift. There is no acute hemorrhage. No calvarial fractures are visualized. There are patchy white matter hypodensities likely on a small vessel basis. There is no evidence of pathologic ventricular dilatation. There is no evidence of acute sinusitis IMPRESSION: No acute intracranial findings Electronically signed by: Sanjiv Lepe M.D. 01/28/2017 8:23 PM Dictated Date/Time: 01/28/2017 8:22 PM
[2017-01-28 20:31] LABS: PROTHROMBIN TIME (PATIENT) 10.5 SECONDS (9.0-12.0)
[2017-01-28 20:43] LABS: BUN/CREATININE RATIO 17.7 (10-20); CALCIUM 9.8 mg/dl (8.5-10.1); CREATININE 1.39 mg/dl (0.60-1.20); POTASSIUM 4.5 mmol/L (3.5-5.1)
[2017-01-28 21:18] LABS: URINE APPEARANCE TURBID (CLEAR); URINE BILIRUBIN NEG (NEG); URINE COLOR YELLOW; URINE EPITHELIAL CELL AUTO >30 /lpf (0-5); URINE NITRITE POS (NEG); URINE PH 7.5 (4.5-7.5); URINE SPECIFIC GRAVITY 1.018 (1.000-1.030); UROBILINOGEN NEG (NEG)
[2017-01-28 21:25] VITALS: BP 181/81; PULSE 65; O2SAT 96
[2017-01-28 21:26] LABS: MANUAL MICROSCOPIC REQUIRED? NO; REVIEW REQ? NO
[2017-01-28] MEDS ORDERED: CIPR1TAB11 PO (21:38)
[2017-01-28] MEDS ORDERED: CIPROFLOXACIN 500 MG TAB PO STA (22:02)
--- NOTE | 2017-01-29 00:06 | EMERGENCY ROOM VISIT NOTE ---
History Report prepared by Winnie: Ela Mishra Under the Supervision of: Dr. Abdiel Rome M.D. First contact with patient: 19:29 Chief Complaint: FALL Stated Complaint: FALL/ HEAD PAIN, NAUSEA History of Present Illness The patient is an 81 year old female who presents to the Emergency Room with complaints of an episode of fall PRIVATE ADVISOR. The patient presents to the ED by EMS. She has been falling frequently recently. Last week she fell and she hit her head. She was not seen in the ED at that time. Today she was cleaning her porch with water when she just fell. She hit the back of her head. She was "hazy" for a couple minutes. She has had some confusion according to the daughter. She currently has a headache in the back of her head. She rates her discomfort as a 6/10 in severity. She is dizzy and nauseous. She denies any chest pain, SOB, diaphoresis, or palpitations. She has had 2 concussions in the past. She has a history of CHF, diabetes, and 1 functional kidney. She is currently on Plavix. She notes that she is supposed to be using a walker. Her falls have taken place when she is not using her walker. Source of History: patient, family Onset: PRIVATE ADVISOR Position: other (global) Quality: other (fall) Timing: other (episodic) Associated Symptoms: + headache, + nausea, No diaphoresis, No chest pain, No SOB Note: Pt reports confusion, dizziness. Pt denies palpitations. Review of Systems See HPI for pertinent positives & negatives. A total of 10 systems reviewed and were otherwise negative. Past Medical & Surgical Medical Problems: (1) CHF (congestive heart failure) (2) Diabetes mellitus, type II (3) Fibromyalgia (4) Hypertension Family History Noncontributory secondary to age. Social History Smoking Status: Former Smoker Drug Use: none Marital Status: Housing Status: lives alone Occupation Status: retired Current/Historical Medications Scheduled Amitriptyline HCl (Amitriptyline HCl), 100 MG PO DAILY Aspirin (Aspirin Ec), 81 MG PO DAILY Atorvastatin (Lipitor), 20 MG PO DAILY Calcitriol (Rocaltrol Cap), 0.25 MCG PO DAILY Calcium Carbonate-Cholecalcife (Caltrate 600+D), 1 TAB PO BID Carvedilol (Carvedilol), 25 MG PO BID Ciprofloxacin Tab (Cipro), 250 MG PO BID Clobetasol Propionate (Temovate), 1 APPLN TOP BID Clopidogrel (Plavix), 75 MG PO DAILY Duloxetine HCl (Duloxetine HCl), 60 MG PO DAILY Glipizide (Glipizide Xl), 2.5 MG PO DAILY Hydralazine HCl (Hydralazine HCl), 100 MG PO TID Multivitamin (Multivitamin), 1 TAB PO DAILY Spironolactone (Spironolactone), 100 MG PO DAILY Scheduled PRN Docusate Sodium (Colace Clear), 50 MG PO DAILY PRN for Constipation Estrogens, Conjugated (Premarin), 1 APPL PV UD PRN for DRYNESS Allergies Coded Allergies: Alendronate (Verified Allergy, Unknown, UNKNOWN, 01/28/17) Cisapride (Verified Allergy, Unknown, UNKNOWN, 05/16/16) Diazepam (Verified Allergy, Unknown, UNKNOWN, 01/28/17) Nabumetone (Verified Allergy, Unknown, UNKNOWN, 01/28/17) Phenazopyridine (Verified Allergy, Unknown, UNKNOWN, 01/28/17) Sulfa Antibiotics (Unverified Allergy, Unknown, UNKNOWN, 01/28/17) Sulindac (Verified Allergy, Unknown, UNKNOWN, 01/28/17) Physical Exam Vital Signs Date Time Temp Pulse Resp B/P (MAP) Pulse Ox O2 Delivery O2 Flow Rate FiO2 01/28/17 21:25 65 18 181/81 96 Room Air 01/28/17 20:08 63 01/28/17 19:46 36.8 65 18 184/80 96 Room Air Physical Exam GENERAL: Patient is a healthy-appearing well-nourished female HEAD: Normocephalic atraumatic EYES: Ocular movements intact pupils equal and react to light OROPHARYNX mucous membranes are moist no exudates present no erythema or edema present NECK: Supple no nuchal rigidity CHEST: Good equal expansion LUNGS: Clear and equal to auscultation CARDIAC: Normal S1 and S2 ABDOMEN: Soft nontender no guarding BACK: No CVA tenderness EXTREMITIES: No pain upon palpation normal muscle strength in all groups no clubbing cyanosis or edema except bruising to the left arm. NEURO: Patient is following commands and answering questions appropriately. Alert and oriented x3 Cranial Nerves 2-12 grossly intact Medical Decision & Procedures ER Provider Diagnostic Interpretation: Radiology results as stated below per my review and radiologist interpretation: CT HEAD WITHOUT CONTRAST (CT) CLINICAL HISTORY: Head trauma. Change in mental status. COMPARISON STUDY: 04/02/2016 TECHNIQUE: Axial CT of the brain is performed from the vertex to the skull base. IV contrast was not administered for this examination. A dose lowering technique was utilized adhering to the principles of ALARA. CT DOSE: 638.56 mGycm FINDINGS: No intra or extra-axial mass lesions are visualized. There is no CT evidence of acute cortical infarction. There is no evidence of midline shift. There is no acute hemorrhage. No calvarial fractures are visualized. There are patchy white matter hypodensities likely on a small vessel basis. There is no evidence of pathologic ventricular dilatation. There is no evidence of acute sinusitis IMPRESSION: No acute intracranial findings Electronically signed by: Sanjiv Lepe M.D. 01/28/2017 8:23 PM Dictated Date/Time: 01/28/2017 8:22 PM Laboratory Results 01/28/17 20:10 Red Blood Count 4.40, Mean Corpuscular Volume 96.8, Mean Corpuscular Hemoglobin 32.3, Mean Corpuscular Hemoglobin Concent 33.3, Mean Platelet Volume 9.2, Neutrophils (%) (Auto) 79.0, Lymphocytes (%) (Auto) 11.6, Monocytes (%) (Auto) 6.5, Eosinophils (%) (Auto) 2.4, Basophils (%) (Auto) 0.2, Neutrophils # (Auto) 7.27, Lymphocytes # (Auto) 1.07, Monocytes # (Auto) 0.60, Eosinophils # (Auto) 0.22, Basophils # (Auto) 0.02 01/28/17 20:10 Test 01/28/17 20:04 01/28/17 20:10 01/28/17 21:07 Bedside Glucose 122 mg/dl (70-90) White Blood Count 9.21 K/uL (4.8-10.8) Red Blood Count 4.40 M/uL (4.2-5.4) Hemoglobin 14.2 g/dL (12.0-16.0) Hematocrit 42.6 % (37-47) Mean Corpuscular Volume 96.8 fL (80-100) Mean Corpuscular Hemoglobin 32.3 pg (25-34) Mean Corpuscular Hemoglobin Concent 33.3 g/dl (32-36) Platelet Count 285 K/uL (130-400) Mean Platelet Volume 9.2 fL (7.4-10.4) Neutrophils (%) (Auto) 79.0 % Lymphocytes (%) (Auto) 11.6 % Monocytes (%) (Auto) 6.5 % Eosinophils (%) (Auto) 2.4 % Basophils (%) (Auto) 0.2 % Neutrophils # (Auto) 7.27 K/uL (1.4-6.5) Lymphocytes # (Auto) 1.07 K/uL (1.2-3.4) Monocytes # (Auto) 0.60 K/uL (0.11-0.59) Eosinophils # (Auto) 0.22 K/uL (0-0.5) Basophils # (Auto) 0.02 K/uL (0-0.2) RDW Standard Deviation 50.2 fL (36.4-46.3) RDW Coefficient of Variation 14.1 % (11.5-14.5) Immature Granulocyte % (Auto) 0.3 % Immature Granulocyte # (Auto) 0.03 K/uL (0.00-0.02) Prothrombin Time 10.5 SECONDS (9.0-12.0) Prothromb Time International Ratio 1.0 (0.9-1.1) Anion Gap 7.0 mmol/L (3-11) Est Creatinine Clear Calc Drug Dose 34.6 ml/min Estimated GFR () 41.4 Estimated GFR (Non- 35.7 BUN/Creatinine Ratio 17.7 (10-20) Calcium Level 9.8 mg/dl (8.5-10.1) Urine Color YELLOW Urine Appearance TURBID (CLEAR) Urine pH 7.5 (4.5-7.5) Urine Specific [place] 1.018 (1.000-1.030) Urine Protein NEG (NEG) Urine Glucose (UA) NEG (NEG) Urine Ketones TRACE (NEG) Urine Occult Blood NEG (NEG) Urine Nitrite POS (NEG) Urine Bilirubin NEG (NEG) Urine Urobilinogen NEG (NEG) Urine Leukocyte Esterase SMALL (NEG) Urine WBC (Auto) 5-10 /hpf (0-5) Urine RBC (Auto) 0-4 /hpf (0-4) Urine Hyaline Casts (Auto) 1-5 /lpf (0-5) Urine Epithelial Cells (Auto) >30 /lpf (0-5) Urine Bacteria (Auto) 4+ (NEG) Labs reviewed by ED physician. Medications Administered Medications (Trade) Dose Ordered Sig/Darin Route Start Time Stop Time Status Last Admin Dose Admin Ciprofloxacin (Cipro Tab) 500 mg NOW STAT PO 01/28/17 22:02 01/28/17 22:03 DC 01/28/17 22:06 500 MG ED Course 2112: Past medical records reviewed. The patient was evaluated in room C9. A complete history and physical examination was performed. 2201: Cipro Tab 500 mg PO. Medical Decision Differential diagnosis: Etiologies such as fracture, dislocation, intra-abdominal, pneumothorax, intrathoracic , intracranial, neurologic, as well as other traumatic pathologies were entertained. Resident Physician Supervision Note: I interviewed and examined the patient. Discussed with Dr. Toth and agree with findings and plan as documented in the note. Documented By: Abdiel Lau' Head Trauma GCS Score: 15 Medication Reconcilliation Current Medication List: was personally reviewed by me Blood Pressure Screening Patient's blood pressure: Elevated blood pressure Blood pressure disposition: Referred to PCP Impression Primary Impression: Fall Additional Impression: Head injury Scribe Attestation The scribe's documentation has been prepared under my direction and personally reviewed by me in its entirety. I confirm that the note above accurately reflects all work, treatment, procedures, and medical decision making performed by me. Departure Information Dispostion Home / Self-Care Prescriptions Ciprofloxacin Tab (Cipro) 250 Mg Tab 250 MG PO BID for 7 Days, #14 TAB Prov: Markus Toth M.D. 01/28/17 Referrals Nile Alan M.D. (PCP) Forms HOME CARE DOCUMENTATION FORM, IMPORTANT VISIT INFORMATION Patient Instructions [facility] Additional Instructions You came into [facility] because you had a fall. Your head CT did not show any evidence of bleeding, however we did find out that you had a urinary tract infection. We are discharging you on 7 days of oral antibiotics to treat this infection. Please also drink plenty of water, and make sure you use your walker to prevent any further falls! Please follow up with your primary care doctor. Problem Qualifiers Primary Impression: Fall Encounter type: initial encounter Qualified Codes: W19.XXXA - Unspecified fall, initial encounter Additional Impression: Head injury Encounter type: initial encounter Qualified Codes: S09.90XA - Unspecified injury of head, initial encounter
== END 2017-01-28 22:09 | disposition home or self-care (01) ==
LOC: EDBD 19:26 → C.EDC 19:27
DX: S09.90XA Unspecified injury of head, initial encounter (principal); N39.0 Urinary tract infection, site not specified; W19.XXXA Unspecified fall, initial encounter; Y92.018 Other place in single-family (private) house as the place of occurrence of the external cause; I11.0 Hypertensive heart disease with heart failure; E11.9 Type 2 diabetes mellitus without complications; M79.7 Fibromyalgia; Z87.891 Personal history of nicotine dependence; Z79.82 Long term (current) use of aspirin; Z79.02 Long term (current) use of antithrombotics/antiplatelets; Z79.899 Other long term (current) drug therapy

== ENCOUNTER → 2017-04-14 | Outpatient (CLI) | payer OTHER ==
[~2017-04-14] MED LIST changes: -CTP1 PO; -LSX20 PO
[2017-04-14 17:38] LABS: BASO % 0.6 %; BASO ABS # 0.04 K/uL (0-0.2); EOS ABS # 0.34 K/uL (0-0.5); HEMATOCRIT 43.3 % (37-47); IG# 0.02 K/uL (0.00-0.02); LYMPH % 23.6 %; LYMPH ABS # 1.62 K/uL (1.2-3.4); MEAN CELL VOLUME 95.6 fL (80-100); MEAN CORPUSCULAR HEMOGLOBIN 30.9 pg (25-34); MEAN CORPUSCULAR HGB CONC 32.3 g/dl (32-36); MONO % 11.1 %; MONO ABS # 0.76 K/uL (0.11-0.59); NEUT % 59.4 %; NEUT ABS # 4.08 K/uL (1.4-6.5); PLATELET COUNT 285 K/uL (130-400); RED CELL DISTRIBUTION WIDTH CV 14.3 % (11.5-14.5); RED CELL DISTRIBUTION WIDTH SD 50.1 fL (36.4-46.3); WHITE BLOOD COUNT 6.86 K/uL (4.8-10.8)
[2017-04-14 17:52] LABS: ALBUMIN 3.3 gm/dl (3.4-5.0); BLOOD UREA NITROGEN 21 mg/dl (7-18); CALCIUM 9.1 mg/dl (8.5-10.1); CARBON DIOXIDE 28 mmol/L (21-32); CREATININE 1.44 mg/dl (0.60-1.20); GLUCOSE 109 mg/dl (70-99); POTASSIUM 3.9 mmol/L (3.5-5.1); SODIUM 140 mmol/L (136-145)
[2017-04-14 17:57] LABS: TRANSFERRIN 281 mg/dl (200-360)
== END | disposition home or self-care (01) ==
LOC: C.LABBFT 14:08
PROVIDERS: ATTEND Internal Medicine
DX: N18.3 Chronic kidney disease, stage 3 (moderate) (principal); I12.9 Hypertensive chronic kidney disease with stage 1 through stage 4 chronic kidney disease, or unspecified chronic kidney disease; N39.0 Urinary tract infection, site not specified

== ENCOUNTER → 2017-04-29 | Outpatient (CLI) | payer OTHER | END | disposition home or self-care (01) | LOC: C.LABSPEC 07:34 | PROVIDERS: ATTEND Internal Medicine | DX: N39.0 Urinary tract infection, site not specified (principal) ==

== ENCOUNTER → 2017-07-30 | Outpatient (CLI) | payer OTHER ==
[2017-07-30 16:41] LABS: BASO % 0.3 %; BASO ABS # 0.03 K/uL (0-0.2); EOS % 3.2 %; HEMATOCRIT 41.9 % (37-47); IG# 0.03 K/uL (0.00-0.02); LYMPH % 16.2 %; LYMPH ABS # 1.52 K/uL (1.2-3.4); MEAN CELL VOLUME 94.8 fL (80-100); MEAN CORPUSCULAR HEMOGLOBIN 31.7 pg (25-34); MEAN CORPUSCULAR HGB CONC 33.4 g/dl (32-36); MEAN PLATELET VOLUME 9.2 fL (7.4-10.4); MONO % 9.5 %; MONO ABS # 0.89 K/uL (0.11-0.59); NEUT % 70.5 %; NEUT ABS # 6.61 K/uL (1.4-6.5); PLATELET COUNT 407 K/uL (130-400); RED CELL DISTRIBUTION WIDTH CV 13.7 % (11.5-14.5); RED CELL DISTRIBUTION WIDTH SD 47.2 fL (36.4-46.3); WHITE BLOOD COUNT 9.38 K/uL (4.8-10.8)
[2017-07-30 16:48] LABS: ALBUMIN 3.3 gm/dl (3.4-5.0); ALT/SGPT 22 U/L (12-78); AST/SGOT 15 U/L (15-37); BLOOD UREA NITROGEN 18 mg/dl (7-18); CALCIUM 10.2 mg/dl (8.5-10.1); CARBON DIOXIDE 24 mmol/L (21-32); CREATININE 1.26 mg/dl (0.60-1.20); GLUCOSE 108 mg/dl (70-99); POTASSIUM 3.9 mmol/L (3.5-5.1); SODIUM 137 mmol/L (136-145)
[2017-07-30 16:59] LABS: ALKALINE PHOSPHATASE 113 U/L (45-117); TOTAL PROTEIN 7.8 gm/dl (6.4-8.2)
[2017-07-31 07:30] LABS: HEMOGLOBIN A1C 6.5 % (4.5-5.6)
== END | disposition home or self-care (01) ==
LOC: C.LABBFT 12:06
PROVIDERS: ATTEND Internal Medicine
DX: E11.9 Type 2 diabetes mellitus without complications (principal)

== ENCOUNTER 2017-08-19 18:08 | Emergency (ER) | payer OTHER ==
[~2017-08-19] VITALS: Ht 160 cm; Wt 90.5 kg
[2017-08-19 18:16] VITALS: TEMP 37.1; Ht 160 cm; Wt 90.5 kg
--- NOTE | 2017-08-19 18:41 | DIAGNOSTIC IMAGING REPORT ---
SINGLE VIEW CHEST CLINICAL HISTORY: Trauma. FINDINGS: An AP, portable, upright chest radiograph is compared to study dated 03/06/2014. The examination is degraded by portable technique and patient rotation. The heart is enlarged and there is atherosclerotic calcification of the thoracic aorta. The pulmonary vasculature is noncongested. Chronic interstitial thickening is unchanged. There is minimal left basilar atelectasis. No airspace consolidation or large pleural effusion is identified. No pneumothorax is seen. The skeletal structures are osteopenic. The bony thorax is grossly intact. Degenerative change is noted throughout the thoracic spine. IMPRESSION: Cardiomegaly with no acute cardiopulmonary abnormality. Electronically signed by: Wai Villanueva M.D. 08/19/2017 6:40 PM Dictated Date/Time: 08/19/2017 6:38 PM
--- NOTE | 2017-08-19 18:43 | DIAGNOSTIC IMAGING REPORT ---
SINGLE VIEW PELVIS CLINICAL HISTORY: Trauma. Fall. FINDINGS: An AP pelvic radiograph is correlated with pelvic CT dated 12/08/2016. The skeletal structures are osteopenic. There is no radiographic evidence of acute fracture involving the hips or bony pelvis. Mild arthritic change and joint space narrowing is seen in the hips. Sclerotic degenerative change is noted in the sacroiliac joints. Lumbosacral spondylosis is partially imaged. There are numerous small pelvic phleboliths. No bowel obstruction is seen. The overlying soft tissues are within normal limits. IMPRESSION: There is no radiographic evidence of fracture involving the hips or bony pelvis. Electronically signed by: Wai Villanueva M.D. 08/19/2017 6:41 PM Dictated Date/Time: 08/19/2017 6:40 PM
[2017-08-19] MEDS ORDERED: AMT/50 PO (18:54)
--- NOTE | 2017-08-19 18:57 | DIAGNOSTIC IMAGING REPORT ---
CT SCAN OF THE BRAIN WITHOUT IV CONTRAST CLINICAL HISTORY: Trauma. Fall. COMPARISON STUDY: CT of the brain dated 01/28/2017. TECHNIQUE: Unenhanced axial CT scan of the brain is performed from the vertex to the skull base. A dose lowering technique was utilized adhering to the principles of ALARA. FINDINGS: Brain parenchyma: There are age-related involutional changes noting mild to moderate subcortical and periventricular microangiopathic change. There is no hemorrhage, mass effect, or evidence of acute territorial ischemia by CT criteria. [place]-white matter is preserved. No extra-axial fluid collection is seen. Ventricles, sulci, cisterns: Prominent secondary to involutional change. Intracranial vasculature: There is atherosclerotic calcification of the cavernous carotid and vertebral arteries. Calvarium: The skeletal structures are osteopenic. There is no depressed calvarial fracture. Soft tissues: There is a large left posterior parietal scalp hematoma and laceration. Sinuses and mastoids: The visualized paranasal sinuses are clear. The mastoid air cells are well pneumatized. Orbits: The bony orbits are grossly intact. IMPRESSION: 1. There is no hemorrhage, mass effect, or evidence of acute territorial ischemia by CT criteria. 2. There is a large left posterior parietal scalp hematoma/laceration. No depressed calvarial fracture is seen. Electronically signed by: Wai Villanueva M.D. 08/19/2017 6:55 PM Dictated Date/Time: 08/19/2017 6:52 PM
--- NOTE | 2017-08-19 19:06 | DIAGNOSTIC IMAGING REPORT ---
CT SCAN OF THE CERVICAL SPINE CLINICAL HISTORY: Trauma. Fall. COMPARISON STUDY: No priors. TECHNIQUE: CT scan of the cervical spine is performed from the skull base to the upper thoracic spine. Images are reviewed in the axial, sagittal, and coronal planes. IV contrast was not administered for this examination. A dose lowering technique was utilized adhering to the principles of ALARA. CT DOSE: 1084.53 mGy.cm FINDINGS: Skeletal structures: The skeletal structures are osteopenic. There is no evidence of fracture or subluxation involving the cervical spine. Vertebral body height and alignment are maintained. Anterior osteophytes are seen in the mid to lower cervical region. The odontoid process and lateral masses are intact. The atlantoaxial articulation is preserved noting productive degenerative change. The spinous processes appear intact. There is mild multilevel cervical spondylosis. Facet arthropathy seen at several levels. Intervertebral discs: There is moderate disc space narrowing at C5-C6. Mild disc space narrowing seen at C6-C7. Central canal: Grossly patent. Soft tissues: The prevertebral and paraspinous soft tissues are within normal limits. Numerous calcified tonsilliths are observed. There is atherosclerotic calcification of the carotid bulbs. Calvarium: The visualized calvarium at the skull base appears intact. Brain parenchyma: Partially visualized brain parenchyma the skull base is within normal limits noting age-related involutional change. Sinuses and mastoids: The visualized paranasal sinuses are clear. The mastoid air cells are well pneumatized. Lung apices: Clear as visualized. IMPRESSION: 1. There is no evidence of fracture or subluxation involving the cervical spine. 2. Osteopenia and spondylotic change as above. Electronically signed by: Wai Villanueva M.D. 08/19/2017 7:05 PM Dictated Date/Time: 08/19/2017 6:57 PM
[2017-08-19] MEDS ORDERED: FLV1 PO (19:32)
[2017-08-19] MEDS ORDERED: MELA1CAP9 PO (19:32)
--- NOTE | 2017-08-19 20:12 | EMERGENCY ROOM VISIT NOTE ---
History Report prepared by Winnie: Ela Mishra Under the Supervision of: Dr. Shakira Stein D.O. First contact with patient: 18:07 Chief Complaint: FALL Stated Complaint: FALL, LACERATION TO HEAD & SWELLING History of Present Illness The patient is an 81 year old female who presents to the Emergency Room with complaints of an episode of fall DROP FORGER. The patient was outside her home when she tripped on some rocks and fell. She hit her head on the concrete. Pt states she got up on her own after she fell and walked to the front door to meet EMS. She presents to the ED by EMS. She was feeling normal prior to falling. She denies any LOC, headache, chest pain, trouble breathing, dizziness, lightheadedness, blurry vision, double vision, neck pain, back pain, shoulder pain, arm pain, or hip pain. She has some leg pain which is chronic from her fibromyalgia. She is on aspirin and Plavix. Source of History: patient Onset: DROP FORGER Position: head Quality: other (fall) Timing: other (episodic) Associated Symptoms: No LOC, No headache, No neck pain, No chest pain, No back pain Review of Systems See HPI for pertinent positives & negatives. A total of 10 systems reviewed and were otherwise negative. Past Medical & Surgical Medical Problems: (1) CHF (congestive heart failure) (2) Diabetes mellitus, type II (3) Fibromyalgia (4) Hypertension Family History Noncontributory secondary to age. Social History Smoking Status: Former Smoker Drug Use: none Marital Status: Housing Status: lives alone Occupation Status: retired Current/Historical Medications Scheduled Amitriptyline HCl (Amitriptyline HCl), 50 MG PO DAILY Aspirin (Aspirin Ec), 81 MG PO DAILY Atorvastatin (Lipitor), 20 MG PO DAILY Calcitriol (Rocaltrol Cap), 0.25 MCG PO DAILY Calcium Carbonate-Cholecalcife (Caltrate 600+D), 1 TAB PO DAILY Carvedilol (Carvedilol), 25 MG PO BID Clopidogrel (Plavix), 75 MG PO DAILY Duloxetine HCl (Duloxetine HCl), 60 MG PO DAILY Folic Acid (Folic Acid), 1 TAB PO DAILY Glipizide (Glipizide Xl), 2.5 MG PO DAILY Hydralazine HCl (Hydralazine HCl), 100 MG PO BID Melatonin (Melatonin), 20 MG PO HS Multivitamin (Multivitamin), 1 TAB PO DAILY Spironolactone (Spironolactone), 100 MG PO DAILY Scheduled PRN Clobetasol Propionate (Temovate), 1 APPLN TOP BID PRN for Docusate Sodium (Colace Clear), 50 MG PO DAILY PRN for Constipation Estrogens, Conjugated (Premarin), 1 APPL PV UD PRN for DRYNESS Allergies Coded Allergies: Alendronate (Verified Allergy, Unknown, UNKNOWN, 01/28/17) Cisapride (Verified Allergy, Unknown, UNKNOWN, 05/16/16) Diazepam (Verified Allergy, Unknown, UNKNOWN, 01/28/17) Nabumetone (Verified Allergy, Unknown, UNKNOWN, 01/28/17) Phenazopyridine (Verified Allergy, Unknown, UNKNOWN, 01/28/17) Sulfa Antibiotics (Unverified Allergy, Unknown, UNKNOWN, 01/28/17) Sulindac (Verified Allergy, Unknown, UNKNOWN, 01/28/17) Physical Exam Vital Signs Date Time Temp Pulse Resp B/P (MAP) Pulse Ox O2 Delivery O2 Flow Rate FiO2 08/19/17 20:51 60 16 189/72 95 08/19/17 20:40 196/84 08/19/17 19:44 62 16 184/127 97 Room Air 08/19/17 18:16 37.1 63 20 177/97 96 Room Air Physical Exam GENERAL: alert, well appearing, well nourished, no distress, non-toxic HEAD: Large scalp hematoma posteriorly, small amount of oozing noted. EYE EXAM: normal conjunctiva, PERRL and EOM's grossly intact OROPHARYNX: no exudate, no erythema, lips, buccal mucosa, and tongue normal and mucous membranes are moist EARS: TMs clear b/l NECK: supple, no nuchal rigidity, no adenopathy, no midline tenderness. CHEST: stable to compression anteriorly and posteriorly LUNGS: clear to auscultation. Normal chest wall mechanics, no w/r/r HEART: no murmurs, S1 normal and S2 normal ABDOMEN: abdomen soft, non-tender, normo-active bowel sounds, no masses, no rebound or guarding. PELVIS: stable to compression anteriorly and posteriorly BACK: Back is symmetrical on inspection and there is no deformity, no midline tenderness, no CVA tenderness. UPPER EXTREMITIES: full active and passive range of motion of all joints without tenderness to palpation, no deformities. LOWER EXTREMITIES: full active and passive range of motion of all joints without tenderness to palpation, no deformities. Small contusion to the left lateral knee. NEURO EXAM: Normal sensorium, cranial nerves II-XII grossly intact, normal speech, no gross weakness of arms, no gross weakness of legs. GCS: 15. Medical Decision & Procedures ER Provider Diagnostic Interpretation: Radiology results have been interpreted by the radiologist and reviewed by me. SINGLE VIEW CHEST CLINICAL HISTORY: Trauma. FINDINGS: An AP, portable, upright chest radiograph is compared to study dated 03/06/2014. The examination is degraded by portable technique and patient rotation. The heart is enlarged and there is atherosclerotic calcification of the thoracic aorta. The pulmonary vasculature is noncongested. Chronic interstitial thickening is unchanged. There is minimal left basilar atelectasis. No airspace consolidation or large pleural effusion is identified. No pneumothorax is seen. The skeletal structures are osteopenic. The bony thorax is grossly intact. Degenerative change is noted throughout the thoracic spine. IMPRESSION: Cardiomegaly with no acute cardiopulmonary abnormality. Electronically signed by: Wai Villanueva M.D. 08/19/2017 6:40 PM Dictated Date/Time: 08/19/2017 6:38 PM SINGLE VIEW PELVIS CLINICAL HISTORY: Trauma. Fall. FINDINGS: An AP pelvic radiograph is correlated with pelvic CT dated 12/08/2016. The skeletal structures are osteopenic. There is no radiographic evidence of acute fracture involving the hips or bony pelvis. Mild arthritic change and joint space narrowing is seen in the hips. Sclerotic degenerative change is noted in the sacroiliac joints. Lumbosacral spondylosis is partially imaged. There are numerous small pelvic phleboliths. No bowel obstruction is seen. The overlying soft tissues are within normal limits. IMPRESSION: There is no radiographic evidence of fracture involving the hips or bony pelvis. Electronically signed by: Wai Villanueva M.D. 08/19/2017 6:41 PM Dictated Date/Time: 08/19/2017 6:40 PM RIGHT THUMB 3 VIEWS CLINICAL HISTORY: Fall with right thumb injury. FINDINGS: 3 views of the right thumb are obtained. No prior studies are available for comparison at the time of dictation. The skeletal structures are osteopenic. There is a minimally distracted avulsion fracture through the volar base of the first distal phalanx with overlying soft tissue edema. No additional fracture is seen. Advanced osteoarthritic change is seen at the first carpometacarpal joint where there is bony sclerosis, overgrowth, and subluxation. Mild arthritic change is seen at the first metacarpophalangeal and interphalangeal joints. IMPRESSION: 1. There is a minimally distracted avulsion fracture through the volar base of the first distal phalanx. 2. No additional fracture is seen. 3. Osteopenia and arthritic change as above. Electronically signed by: Wai Villanueva M.D. 08/19/2017 8:31 PM Dictated Date/Time: 08/19/2017 8:[address] SCAN OF THE BRAIN WITHOUT IV CONTRAST CLINICAL HISTORY: Trauma. Fall. COMPARISON STUDY: CT of the brain dated 01/28/2017. TECHNIQUE: Unenhanced axial CT scan of the brain is performed from the vertex to the skull base. A dose lowering technique was utilized adhering to the principles of ALARA. FINDINGS: Brain parenchyma: There are age-related involutional changes noting mild to moderate subcortical and periventricular microangiopathic change. There is no hemorrhage, mass effect, or evidence of acute territorial ischemia by CT criteria. [place]-white matter is preserved. No extra-axial fluid collection is seen. Ventricles, sulci, cisterns: Prominent secondary to involutional change. Intracranial vasculature: There is atherosclerotic calcification of the cavernous carotid and vertebral arteries. Calvarium: The skeletal structures are osteopenic. There is no depressed calvarial fracture. Soft tissues: There is a large left posterior parietal scalp hematoma and laceration. Sinuses and mastoids: The visualized paranasal sinuses are clear. The mastoid air cells are well pneumatized. Orbits: The bony orbits are grossly intact. IMPRESSION: 1. There is no hemorrhage, mass effect, or evidence of acute territorial ischemia by CT criteria. 2. There is a large left posterior parietal scalp hematoma/laceration. No depressed calvarial fracture is seen. Electronically signed by: Wai Villanueva M.D. 08/19/2017 6:55 PM Dictated Date/Time: 08/19/2017 6:[address] SCAN OF THE CERVICAL SPINE CLINICAL HISTORY: Trauma. Fall. COMPARISON STUDY: No priors. TECHNIQUE: CT scan of the cervical spine is performed from the skull base to the upper thoracic spine. Images are reviewed in the axial, sagittal, and coronal planes. IV contrast was not administered for this examination. A dose lowering technique was utilized adhering to the principles of ALARA. CT DOSE: 1084.53 mGy.cm FINDINGS: Skeletal structures: The skeletal structures are osteopenic. There is no evidence of fracture or subluxation involving the cervical spine. Vertebral body height and alignment are maintained. Anterior osteophytes are seen in the mid to lower cervical region. The odontoid process and lateral masses are intact. The atlantoaxial articulation is preserved noting productive degenerative change. The spinous processes appear intact. There is mild multilevel cervical spondylosis. Facet arthropathy seen at several levels. Intervertebral discs: There is moderate disc space narrowing at C5-C6. Mild disc space narrowing seen at C6-C7. Central canal: Grossly patent. Soft tissues: The prevertebral and paraspinous soft tissues are within normal limits. Numerous calcified tonsilliths are observed. There is atherosclerotic calcification of the carotid bulbs. Calvarium: The visualized calvarium at the skull base appears intact. Brain parenchyma: Partially visualized brain parenchyma the skull base is within normal limits noting age-related involutional change. Sinuses and mastoids: The visualized paranasal sinuses are clear. The mastoid air cells are well pneumatized. Lung apices: Clear as visualized. IMPRESSION: 1. There is no evidence of fracture or subluxation involving the cervical spine. 2. Osteopenia and spondylotic change as above. Electronically signed by: Wai Villanueva M.D. 08/19/2017 7:05 PM Dictated Date/Time: 08/19/2017 6:57 PM ED Course 180: The patient was evaluated in room C3. A complete history and physical exam was performed. 1929: I reevaluated the patient. I updated her on the results. 1951: I applied Dermabond to the patient's scalp abrasion. 2034: I reevaluated the patient. I updated her on the results. I offered a splint for her finger which she declined. I discussed the findings and the treatment plan with the patient. She verbalizes agreement and understanding. She was discharged home. 2044: I reevaluated the patient. I discussed her blood pressure with her. She was discharged home. Medical Decision Differential diagnoses include major intracranial, cervical, spinal, thoracic, abdominal, pelvic and neurologic injury. Fracture, contusion, sprain, strain, laceration, abrasions included as well. Pt here well throughout despite scalp contusion and abrasions. Imaging reassuring, VS stable throughout. Pt with not new or evolving complaints while being monitored in the ER. Discussed CHI/concussion precautions, sx to watch/ return for, f/u with her PCP for a recheck as a precaution, she verbalized understanding and was agreeable. Family verbalized understanding and intends to take her home and stay with her tonight. Pt ambulated here with a steady gait and was tolerating sips of po at bedside. I have a low suspicion for any additional occult traumatic injury. All questions answered at bedside, pt comfortable with plan. Head Trauma GCS Score: 15 Medication Reconcilliation Current Medication List: was personally reviewed by me Blood Pressure Screening Patient's blood pressure: Elevated blood pressure Blood pressure disposition: Referred to PCP Impression Primary Impression: Fall Additional Impressions: Head injury Scalp contusion Scalp abrasion Scribe Attestation The scribe's documentation has been prepared under my direction and personally reviewed by me in its entirety. I confirm that the note above accurately reflects all work, treatment, procedures, and medical decision making performed by me. Departure Information Dispostion Home / Self-Care Referrals Nile Alan M.D. (PCP) Patient Instructions My [facility] Additional Instructions Please continue your regular medications as prescribed. You may eat and drink normally. Please use extra caution to avoid any recurrent falls. You may shower tomorrow and wash her hair. Please be cautious washing her hair or combing her hair as you could reopen your injury and start to bleed again. If you develop any worsening headache, dizziness, vision changes, vomiting, develop chest pain, trouble breathing, neck or back pain, are unable to walk, or you have any other new concerns, please return the emergency room. Problem Qualifiers Primary Impression: Fall Encounter type: initial encounter Qualified Codes: W19.XXXA - Unspecified fall, initial encounter Additional Impressions: Head injury Encounter type: initial encounter Qualified Codes: S09.90XA - Unspecified injury of head, initial encounter Scalp contusion Encounter type: initial encounter Qualified Codes: S00.03XA - Contusion of scalp, initial encounter Scalp abrasion Encounter type: initial encounter Qualified Codes: S00.01XA - Abrasion of scalp, initial encounter
--- NOTE | 2017-08-19 20:32 | DIAGNOSTIC IMAGING REPORT ---
RIGHT THUMB 3 VIEWS CLINICAL HISTORY: Fall with right thumb injury. FINDINGS: 3 views of the right thumb are obtained. No prior studies are available for comparison at the time of dictation. The skeletal structures are osteopenic. There is a minimally distracted avulsion fracture through the volar base of the first distal phalanx with overlying soft tissue edema. No additional fracture is seen. Advanced osteoarthritic change is seen at the first carpometacarpal joint where there is bony sclerosis, overgrowth, and subluxation. Mild arthritic change is seen at the first metacarpophalangeal and interphalangeal joints. IMPRESSION: 1. There is a minimally distracted avulsion fracture through the volar base of the first distal phalanx. 2. No additional fracture is seen. 3. Osteopenia and arthritic change as above. Electronically signed by: Wai Villanueva M.D. 08/19/2017 8:31 PM Dictated Date/Time: 08/19/2017 8:29 PM
[2017-08-19 20:51] VITALS: BP 189/72; PULSE 60; O2SAT 95
== END 2017-08-19 20:51 | disposition home or self-care (01) ==
LOC: EDBD 18:08 → C.EDC 18:08
DX: S00.03XA Contusion of scalp, initial encounter (principal); S00.01XA Abrasion of scalp, initial encounter; W01.198A Fall on same level from slipping, tripping and stumbling with subsequent striking against other object, initial encounter; Y92.009 Unspecified place in unspecified non-institutional (private) residence as the place of occurrence of the external cause; E11.9 Type 2 diabetes mellitus without complications; I10 Essential (primary) hypertension; Z88.1 Allergy status to other antibiotic agents; Z88.6 Allergy status to analgesic agent; Z88.8 Allergy status to other drugs, medicaments and biological substances; Z79.02 Long term (current) use of antithrombotics/antiplatelets; Z79.82 Long term (current) use of aspirin; Z79.84 Long term (current) use of oral hypoglycemic drugs; Z79.899 Other long term (current) drug therapy

== ENCOUNTER 2017-11-07 20:53 | Emergency (ER) | payer OTHER ==
[~2017-11-07] VITALS: Ht 160 cm; Wt 86.7 kg
[~2017-11-07 20:53] MED LIST changes: +AMT/50 PO; -AMT100 PO; +FLV1 PO; +MELA1CAP9 PO
[2017-11-07 20:59] VITALS: TEMP 37.1; Ht 160 cm; Wt 86.7 kg
--- NOTE | 2017-11-07 21:34 | EMERGENCY ROOM VISIT NOTE ---
History Report prepared by Winnie: Omer Rowe Under the Supervision of: Dr. Ti Florez D.O. First contact with patient: 21:09 Chief Complaint: LEG PAIN,LEG INJURY Stated Complaint: RED IN LOWER RIGHT LEG AND WARM TO TOUCH History of Present Illness The patient is a 82 year old female who presents to the Emergency Room with complaints of constant redness, pain and warmth in the right leg. She states that around dinnertime tonight, she noticed the redness in her right leg and states that the skin was warm to the touch. The patient states that she does not have a history of these symptoms. She denies chest pain, difficulty breathing, fevers, chills, nausea, or vomiting. She also denies recent scratches to the feet. She reports that she is on Plavix. Source of History: patient Onset: tonight Position: leg (right) Quality: other (redness, warmth) Timing: constant Associated Symptoms: No fevers, No chills, No chest pain, No SOB, No nausea , No vomiting Review of Systems See HPI for pertinent positives & negatives. A total of 10 systems reviewed and were otherwise negative. Past Medical & Surgical Medical Problems: (1) CHF (congestive heart failure) (2) Diabetes mellitus, type II (3) Fibromyalgia (4) Hypertension Family History Patient reports no known family medical history. Social History Smoking Status: Current Every Day Smoker Drug Use: none Marital Status: Housing Status: lives alone Occupation Status: retired Current/Historical Medications Scheduled Amitriptyline HCl (Amitriptyline HCl), 50 MG PO DAILY Amoxicillin & Pot Clavulanate (Augmentin 875-125 mg), 875 MG PO BID Aspirin (Aspirin Ec), 81 MG PO DAILY Atorvastatin (Lipitor), 20 MG PO DAILY Calcitriol (Rocaltrol Cap), 0.25 MCG PO DAILY Calcium Carbonate-Cholecalcife (Caltrate 600+D), 1 TAB PO DAILY Carvedilol (Carvedilol), 25 MG PO BID Clopidogrel (Plavix), 75 MG PO DAILY Duloxetine HCl (Duloxetine HCl), 60 MG PO DAILY Folic Acid (Folic Acid), 1 TAB PO DAILY Glipizide (Glipizide Xl), 2.5 MG PO DAILY Hydralazine HCl (Hydralazine HCl), 100 MG PO BID Melatonin (Melatonin), 20 MG PO HS Multivitamin (Multivitamin), 1 TAB PO DAILY Spironolactone (Spironolactone), 100 MG PO DAILY Scheduled PRN Docusate Sodium (Colace Clear), 50 MG PO DAILY PRN for Constipation Estrogens, Conjugated (Premarin), 1 APPL PV UD PRN for DRYNESS Allergies Coded Allergies: Alendronate (Verified Allergy, Unknown, UNKNOWN, 01/28/17) Cisapride (Verified Allergy, Unknown, UNKNOWN, 05/16/16) Diazepam (Verified Allergy, Unknown, UNKNOWN, 01/28/17) Nabumetone (Verified Allergy, Unknown, UNKNOWN, 01/28/17) Phenazopyridine (Verified Allergy, Unknown, UNKNOWN, 01/28/17) Sulfa Antibiotics (Unverified Allergy, Unknown, UNKNOWN, 01/28/17) Sulindac (Verified Allergy, Unknown, UNKNOWN, 01/28/17) Physical Exam Vital Signs Date Time Temp Pulse Resp B/P (MAP) Pulse Ox O2 Delivery O2 Flow Rate FiO2 11/07/17 23:48 65 22 165/66 97 Room Air 11/07/17 22:43 64 26 206/82 96 Room Air 11/07/17 20:59 37.1 64 20 186/75 94 Room Air Physical Exam GENERAL: Patient is awake, alert, and in no acute distress. Patient is resting comfortably and showing no signs of anxiety EYES: The conjunctivae are clear. The pupils are round and reactive. EARS, NOSE, MOUTH AND THROAT: The nose is without any evidence of any deformity. Mucous membranes are moist. Tongue is midline NECK: The neck is nontender and supple. RESPIRATORY: Normal respiratory effort is noted. There is no evidence of wheezing rhonchi or rales to auscultation. CARDIOVASCULAR: Regular rate and rhythm noted. There no murmurs rubs or gallops normal S1 normal S2 GASTROINTESTINAL: The abdomen is soft. Bowel sounds are present in all quadrants. Abdomen is nontender. MUSCULOSKELETAL/EXTREMITIES: There is no evidence of gross deformity. Full range of motion is noted in the hips and shoulders. SKIN: Trace pedal edema bilaterally. Erythema and edema to anterior right lower leg. No lymphangitic streaking appreciated. NEUROLOGIC: Patient is awake alert and oriented x3. Medical Decision & Procedures ER Provider Diagnostic Interpretation: Radiology results as stated below per my review and radiologist interpretation: Preliminary Findings Only See Final Report For Complete Findings US VENOUS RIGHT LOWER EXTREMITY: No evidence of deep vein thrombosis in the right lower extremity. Radiologist: Denis Vieira DO Study ready at 23:23 and initial results transmitted at 23:31 Laboratory Results 11/07/17 21:50 Red Blood Count 4.33, Mean Corpuscular Volume 94.9, Mean Corpuscular Hemoglobin 31.4, Mean Corpuscular Hemoglobin Concent 33.1, Mean Platelet Volume 9.7, Neutrophils (%) (Auto) 81.5, Lymphocytes (%) (Auto) 8.5, Monocytes (%) (Auto) 7.4, Eosinophils (%) (Auto) 2.2, Basophils (%) (Auto) 0.2, Neutrophils # (Auto) 13.51, Lymphocytes # (Auto) 1.41, Monocytes # (Auto) 1.22, Eosinophils # (Auto) 0.37, Basophils # (Auto) 0.03 11/07/17 21:50 Test 11/07/17 21:50 White Blood Count 16.58 K/uL (4.8-10.8) Red Blood Count 4.33 M/uL (4.2-5.4) Hemoglobin 13.6 g/dL (12.0-16.0) Hematocrit 41.1 % (37-47) Mean Corpuscular Volume 94.9 fL (80-100) Mean Corpuscular Hemoglobin 31.4 pg (25-34) Mean Corpuscular Hemoglobin Concent 33.1 g/dl (32-36) Platelet Count 312 K/uL (130-400) Mean Platelet Volume 9.7 fL (7.4-10.4) Neutrophils (%) (Auto) 81.5 % Lymphocytes (%) (Auto) 8.5 % Monocytes (%) (Auto) 7.4 % Eosinophils (%) (Auto) 2.2 % Basophils (%) (Auto) 0.2 % Neutrophils # (Auto) 13.51 K/uL (1.4-6.5) Lymphocytes # (Auto) 1.41 K/uL (1.2-3.4) Monocytes # (Auto) 1.22 K/uL (0.11-0.59) Eosinophils # (Auto) 0.37 K/uL (0-0.5) Basophils # (Auto) 0.03 K/uL (0-0.2) RDW Standard Deviation 50.1 fL (36.4-46.3) RDW Coefficient of Variation 14.4 % (11.5-14.5) Immature Granulocyte % (Auto) 0.2 % Immature Granulocyte # (Auto) 0.04 K/uL (0.00-0.02) Erythrocyte Sedimentation Rate 48 mm/hr (0-21) Anion Gap 8.0 mmol/L (3-11) Est Creatinine Clear Calc Drug Dose 41.1 ml/min Estimated GFR () 53.4 Estimated GFR (Non- 46.0 BUN/Creatinine Ratio 16.2 (10-20) Calcium Level 9.1 mg/dl (8.5-10.1) Total Bilirubin 0.3 mg/dl (0.2-1) Direct Bilirubin mg/dl (0-0.2) Aspartate Amino Transf (AST/SGOT) U/L (15-37) Alanine Aminotransferase (ALT/SGPT) 20 U/L (12-78) Alkaline Phosphatase 92 U/L (45-117) C-Reactive Protein 0.46 mg/dl (0-0.29) Total Protein 7.5 gm/dl (6.4-8.2) Albumin 3.4 gm/dl (3.4-5.0) Laboratory results per my review. Medications Administered Medications (Trade) Dose Ordered Sig/Darin Route Start Time Stop Time Status Last Admin Dose Admin Ceftriaxone Sodium (Rocephin Inj) 1 gm NOW STAT IV 11/07/17 22:21 11/07/17 22:22 DC 11/07/17 22:56 1 GM ED Course 2117: The patient was evaluated in room C11B. A complete history and physical examination were performed. 2220: Ordered Rocephin 1 gm IV 2342: Upon reevaluation, the patient is resting. I discussed the results and treatment plan with her. I told her the Doppler ultrasound showed no problems and discussed antibiotics with her. She verbalized agreement of the treatment plan. She was discharged home. Medical Decision Differential diagnosis: Etiologies such as cellulitis, abscess, MRSA infection, DVT, necrotizing fasciitis, dermatitis, drug eruption, as well as others were entertained. Nursing notes reviewed. The patient is an 82-year-old female who presented to the emergency department for an evaluation of lower extremity redness. The patient noted lower extremity weakness earlier today. She was concerned that this could be consistent with a DVT. The patient did not have significant edema or calf tenderness. Her history and physical exam appear to be more consistent with cellulitis. The patient had laboratory studies which did reveal an elevated white blood cell count. She was started on IV antibiotic's in the emergency department. She was encouraged to call her family doctor in the morning to schedule a follow-up appointment and continue all medications as prescribed. Otherwise she was encouraged to return to the emergency department immediately if symptoms change worsen or the need arises. Medication Reconcilliation Current Medication List: was personally reviewed by me Blood Pressure Screening Patient's blood pressure: Elevated blood pressure Blood pressure disposition: Referred to PCP Impression Primary Impression: Cellulitis of right lower extremity Scribe Attestation The scribe's documentation has been prepared under my direction and personally reviewed by me in its entirety. I confirm that the note above accurately reflects all work, treatment, procedures, and medical decision making performed by me. Departure Information Dispostion Home / Self-Care Prescriptions Amoxicillin & Pot Clavulanate (Augmentin 875-125 mg) 1 Tab Tab 875 MG PO BID, #20 TAB Prov: Ti Florez, DO 11/07/17 Referrals Nile Alan M.D. (PCP) Forms HOME CARE DOCUMENTATION FORM, IMPORTANT VISIT INFORMATION Patient Instructions My [facility] [place] [employer] Additional Instructions Continue all medications as prescribed. Continue to use Motrin and Tylenol as directed for pain. Call your family doctor to schedule a follow-up appointment for a recheck this week. Return to the emergency department immediately if symptoms change worsen or the need arises.
[2017-11-07 22:04] LABS: BASO % 0.2 %; BASO ABS # 0.03 K/uL (0-0.2); EOS % 2.2 %; EOS ABS # 0.37 K/uL (0-0.5); HEMATOCRIT 41.1 % (37-47); HEMOGLOBIN 13.6 g/dL (12.0-16.0); IG# 0.04 K/uL (0.00-0.02); LYMPH % 8.5 %; LYMPH ABS # 1.41 K/uL (1.2-3.4); MEAN CELL VOLUME 94.9 fL (80-100); MEAN CORPUSCULAR HEMOGLOBIN 31.4 pg (25-34); MEAN CORPUSCULAR HGB CONC 33.1 g/dl (32-36); MEAN PLATELET VOLUME 9.7 fL (7.4-10.4); MONO % 7.4 %; MONO ABS # 1.22 K/uL (0.11-0.59); NEUT % 81.5 %; NEUT ABS # 13.51 K/uL (1.4-6.5); PLATELET COUNT 312 K/uL (130-400); RED CELL DISTRIBUTION WIDTH CV 14.4 % (11.5-14.5); RED CELL DISTRIBUTION WIDTH SD 50.1 fL (36.4-46.3); WHITE BLOOD COUNT 16.58 K/uL (4.8-10.8)
[2017-11-07] MEDS ORDERED: CEFTRIAXONE SOD INJ 1 GM ADDVIAL IV STA (22:21)
[2017-11-07 22:26] LABS: ALBUMIN 3.4 gm/dl (3.4-5.0); CALCIUM 9.1 mg/dl (8.5-10.1); CREATININE 1.12 mg/dl (0.60-1.20); TOTAL PROTEIN 7.5 gm/dl (6.4-8.2)
[2017-11-07] MEDS ORDERED: AMOX875T PO (23:34)
[2017-11-07 23:48] VITALS: BP 165/66; PULSE 65; O2SAT 97
--- NOTE | 2017-11-08 06:57 | DIAGNOSTIC IMAGING REPORT ---
RIGHT LOWER EXTREMITY VENOUS DOPPLER CLINICAL HISTORY: Right lower extremity pain and redness. COMPARISON STUDY: Bilateral lower extremity venous Doppler May 18, 2010. TECHNIQUE: Sonography of the deep venous system of the right lower extremity was performed. Compression and augmentation were evaluated. FINDINGS: The right common femoral, superficial femoral and popliteal veins were compressible. Augmentation was normal. Flow was shown within the deep calf vessels. IMPRESSION: No evidence of deep venous thrombus within the right lower extremity. Electronically signed by: Man Linda M.D. 11/08/2017 6:56 AM Dictated Date/Time: 11/08/2017 6:55 AM
== END 2017-11-07 23:45 | disposition home or self-care (01) ==
LOC: C.EDB 20:55 → C.EDC 23:45
DX: L03.115 Cellulitis of right lower limb (principal); E11.9 Type 2 diabetes mellitus without complications; M79.7 Fibromyalgia; I11.0 Hypertensive heart disease with heart failure; F17.210 Nicotine dependence, cigarettes, uncomplicated; Z79.82 Long term (current) use of aspirin; Z79.02 Long term (current) use of antithrombotics/antiplatelets; Z79.899 Other long term (current) drug therapy; Z88.2 Allergy status to sulfonamides; Z88.8 Allergy status to other drugs, medicaments and biological substances

== ENCOUNTER 2019-06-01 18:38 | Inpatient (IN) ==
[2019-06-01] MEDS ORDERED: dilTIAZem HCl 5 MG/ML 5 ML VIAL IV ONE (18:48)
[2019-06-01] MEDS ORDERED: dilTIAZem HCL 125 MG in DEXTROSE 5% 100 ML IV STA (18:48)
[2019-06-01] MEDS ORDERED: dilTIAZem HCl 5 MG/ML 5 ML VIAL IV STA (18:48)
[2019-06-01] MEDS ORDERED: SODIUM CHLORIDE 0.9% 500 ML IV SCH (19:00)
--- NOTE | 2019-06-01 19:06 | Emergency Department Note ---
Entered by Sumi Zaidi acting as a scribe for Wai Santos MD History of Present Illness General Chief complaint: Cardiac Assessment Stated complaint: afib w/ SOB Source: patient and EMS Limitations: no limitations History of Present Illness Onset (ago): week(s) (a few) Location: chest Pain Consistency: + constant Quality: + other (SOB) Associated symptoms: + chest pain and + other (dizziness) The patient is a 83 year old female who presents to the Emergency Room with complaints of constant SOB that began a few weeks ago. She reports that the SOB worsened over the past few days. The patient complains of intermittent central chest pain, noting that exertion exacerbates the pain. She complains of dizziness with standing. Per EMS, the patient was given fluid [employer]. EMS notes that the patient is in A-fib. The patient notes a history of CHF. She states that she has a history of kidney malfunction. The patient reports that she takes Aspirin and Plavix. She denies any history of a myocardial infarction. Home Medications Home Medications Medication Instructions Recorded Confirmed Type aspirin 81 mg tablet,delayed 81 mg PO QAM 12/11/18 06/01/19 History release carvedilol 25 mg tablet 25 mg PO BID #180 tab 12/16/18 06/01/19 Rx hydralazine 100 mg tablet 100 mg PO BID #180 tab 12/16/18 06/01/19 Rx amitriptyline 50 mg tablet 50 mg PO HS #90 tab 12/22/18 06/01/19 Rx atorvastatin [Lipitor] 20 mg PO QAM 06/01/19 06/01/19 History calcitriol 0.25 mcg PO QAM 06/01/19 06/01/19 History clopidogrel [Plavix] 75 mg PO QAM 06/01/19 06/01/19 History gabapentin 100 mg PO HS 06/01/19 06/01/19 History glipizide 2.5 mg PO QAM 06/01/19 06/01/19 History spironolactone 100 mg PO QAM 06/01/19 06/01/19 History venlafaxine 75 mg PO QPM 06/01/19 06/01/19 History Allergies Allergy/AdvReac Type Severity Reaction Status Date / Time duloxetine Allergy Severe Diarrhea Verified 03/06/19 14:53 SOLANGE Inhibitors Allergy Unknown Verified 03/06/19 14:52 alendronate sodium Allergy Unknown UNKNOWN Verified 03/06/19 14:52 ARB-Angiotensin Receptor Allergy Unknown Verified 03/06/19 14:52 Antagonist cisapride Allergy Unknown UNKNOWN Verified 03/06/19 14:52 diazepam Allergy Unknown UNKNOWN Verified 03/06/19 14:52 nabumetone Allergy Unknown UNKNOWN Verified 03/06/19 14:52 NSAIDS (Non-Steroidal Allergy Unknown Verified 03/06/19 14:52 Anti-Inflamma phenazopyridine Allergy Unknown UNKNOWN Verified 03/06/19 14:52 Sulfa (Sulfonamide Allergy Unknown UNKNOWN Unverified 03/06/19 14:52 Antibiotics) sulindac Allergy Unknown UNKNOWN Verified 03/06/19 14:52 Past Med/Surg History Medical History Depression Fibromyalgia Hyperlipidemia Hypertension Peripheral neuropathy Stage 3 chronic kidney disease Type 2 diabetes mellitus Social History Preferred Language: Arabic Hearing Ability: Hard of Hearing marital status: / Current Living Situation: Alone current occupational status: retired Feels Safe at Home: Yes Smoking Status: Current every day smoker Seatbelt Use: always Review of Systems See HPI for pertinent positives & negatives. and A total of 10 systems reviewed and were otherwise negative Physical Exam Vital Signs Vital Signs - 24 hr 06/01/19 18:35 06/01/19 18:49 06/01/19 18:51 Temperature 37.4 C Temperature Source Oral Pulse Rate 146 H 161 H 165 H Pulse Rate [Apical] Pulse Rate from SpO2 Sensor 152 H 141 H Respiratory Rate 27 H Respiratory Effort / Characteristics Non-Labored Spontaneous Respiratory Depth Normal Blood Pressure 129/82 129/82 149/121 H Blood Pressure [Left Arm] Blood Pressure Mean 97 101 134 Blood Pressure Mean [Left Arm] Blood Pressure Position Sitting Pulse Oximetry 92 94 94 Oxygen Delivery Method Room Air Oxygen Flow Rate Sepsis Recent Fever Within 48 Hours No Sepsis Action Taken by Nursing No Action Required 06/01/19 18:56 06/01/19 19:04 06/01/19 19:06 Temperature Temperature Source Pulse Rate 150 H 157 H 146 H Pulse Rate [Apical] Pulse Rate from SpO2 Sensor 144 H 124 H 119 H Respiratory Rate Respiratory Effort / Characteristics Respiratory Depth Blood Pressure 116/87 127/75 Blood Pressure [Left Arm] Blood Pressure Mean 96 81 Blood Pressure Mean [Left Arm] Blood Pressure Position Pulse Oximetry 92 91 93 Oxygen Delivery Method Oxygen Flow Rate Sepsis Recent Fever Within 48 Hours Sepsis Action Taken by Nursing 06/01/19 19:14 06/01/19 19:15 06/01/19 19:16 Temperature Temperature Source Pulse Rate 139 H Pulse Rate [Apical] 140 H Pulse Rate from SpO2 Sensor 100 H Respiratory Rate 18 Respiratory Effort / Characteristics Non-Labored Respiratory Depth Normal Blood Pressure 161/112 H Blood Pressure [Left Arm] 161/112 H Blood Pressure Mean 135 Blood Pressure Mean [Left Arm] 128 Blood Pressure Position Pulse Oximetry 95 93 Oxygen Delivery Method Room Air Room Air Oxygen Flow Rate Sepsis Recent Fever Within 48 Hours Sepsis Action Taken by Nursing 06/01/19 19:22 06/01/19 19:27 06/01/19 19:30 Temperature Temperature Source Pulse Rate 120 H 135 H 138 H Pulse Rate [Apical] Pulse Rate from SpO2 Sensor 97 H 121 H 98 H Respiratory Rate Respiratory Effort / Characteristics Respiratory Depth Blood Pressure 127/84 124/38 L Blood Pressure [Left Arm] Blood Pressure Mean 103 41 Blood Pressure Mean [Left Arm] Blood Pressure Position Pulse Oximetry 93 92 92 Oxygen Delivery Method Oxygen Flow Rate Sepsis Recent Fever Within 48 Hours Sepsis Action Taken by Nursing 06/01/19 19:35 06/01/19 19:40 06/01/19 19:45 Temperature Temperature Source Pulse Rate 144 H 115 H 142 H Pulse Rate [Apical] Pulse Rate from SpO2 Sensor 119 H 112 H 133 H Respiratory Rate Respiratory Effort / Characteristics Respiratory Depth Blood Pressure Blood Pressure [Left Arm] Blood Pressure Mean Blood Pressure Mean [Left Arm] Blood Pressure Position Pulse Oximetry 91 93 92 Oxygen Delivery Method Oxygen Flow Rate Sepsis Recent Fever Within 48 Hours Sepsis Action Taken by Nursing 06/01/19 19:50 06/01/19 19:55 06/01/19 20:00 Temperature Temperature Source Pulse Rate 141 H 119 H 139 H Pulse Rate [Apical] 136 H Pulse Rate from SpO2 Sensor 110 H 124 H 111 H Respiratory Rate 18 Respiratory Effort / Characteristics Respiratory Depth Blood Pressure Blood Pressure [Left Arm] 107/68 Blood Pressure Mean Blood Pressure Mean [Left Arm] 81 Blood Pressure Position Pulse Oximetry 92 91 93 Oxygen Delivery Method Room Air Oxygen Flow Rate Sepsis Recent Fever Within 48 Hours Sepsis Action Taken by Nursing 06/01/19 20:04 06/01/19 20:06 06/01/19 20:10 Temperature Temperature Source Pulse Rate 129 H 132 H Pulse Rate [Apical] Pulse Rate from SpO2 Sensor 105 H 121 H 133 H Respiratory Rate Respiratory Effort / Characteristics Respiratory Depth Blood Pressure 107/86 Blood Pressure [Left Arm] Blood Pressure Mean 92 Blood Pressure Mean [Left Arm] Blood Pressure Position Pulse Oximetry 92 91 92 Oxygen Delivery Method Oxygen Flow Rate Sepsis Recent Fever Within 48 Hours Sepsis Action Taken by Nursing 06/01/19 20:15 06/01/19 20:16 06/01/19 20:18 Temperature Temperature Source Pulse Rate 127 H 126 H 152 H Pulse Rate [Apical] Pulse Rate from SpO2 Sensor 101 H 121 H 104 H Respiratory Rate 25 H 32 H 32 H Respiratory Effort / Characteristics Respiratory Depth Blood Pressure Blood Pressure [Left Arm] Blood Pressure Mean Blood Pressure Mean [Left Arm] Blood Pressure Position Pulse Oximetry 92 91 94 Oxygen Delivery Method Oxygen Flow Rate Sepsis Recent Fever Within 48 Hours Sepsis Action Taken by Nursing 06/01/19 20:20 06/01/19 20:25 06/01/19 20:26 Temperature Temperature Source Pulse Rate 133 H 128 H 161 H Pulse Rate [Apical] 129 H 138 H Pulse Rate from SpO2 Sensor 124 H 127 H 110 H Respiratory Rate 34 H 34 H 29 H Respiratory Effort / Characteristics Respiratory Depth Blood Pressure 121/84 Blood Pressure [Left Arm] 108/78 121/84 Blood Pressure Mean 92 Blood Pressure Mean [Left Arm] 88 96 Blood Pressure Position Pulse Oximetry 94 95 94 Oxygen Delivery Method Nasal Cannula Nasal Cannula Oxygen Flow Rate 2 2 Sepsis Recent Fever Within 48 Hours Sepsis Action Taken by Nursing 06/01/19 20:34 06/01/19 20:45 06/01/19 21:00 Temperature Temperature Source Pulse Rate 132 H 131 H 112 H Pulse Rate [Apical] Pulse Rate from SpO2 Sensor Respiratory Rate 22 22 Respiratory Effort / Characteristics Respiratory Depth Blood Pressure 101/85 Blood Pressure [Left Arm] Blood Pressure Mean 89 101 Blood Pressure Mean [Left Arm] Blood Pressure Position Pulse Oximetry 93 94 95 Oxygen Delivery Method Nasal Cannula Oxygen Flow Rate 2 Sepsis Recent Fever Within 48 Hours Sepsis Action Taken by Nursing 06/01/19 21:05 06/01/19 21:10 06/01/19 21:15 Temperature Temperature Source Pulse Rate 121 H 122 H 138 H Pulse Rate [Apical] Pulse Rate from SpO2 Sensor 88 101 H 83 Respiratory Rate 28 H 24 26 H Respiratory Effort / Characteristics Respiratory Depth Blood Pressure Blood Pressure [Left Arm] Blood Pressure Mean Blood Pressure Mean [Left Arm] Blood Pressure Position Pulse Oximetry 95 94 90 Oxygen Delivery Method Oxygen Flow Rate Sepsis Recent Fever Within 48 Hours Sepsis Action Taken by Nursing 06/01/19 21:16 06/01/19 21:17 06/01/19 21:20 Temperature Temperature Source Pulse Rate 121 H 123 H Pulse Rate [Apical] 128 H Pulse Rate from SpO2 Sensor 85 87 Respiratory Rate 21 20 21 Respiratory Effort / Characteristics Respiratory Depth Blood Pressure 112/61 Blood Pressure [Left Arm] 112/61 Blood Pressure Mean 89 Blood Pressure Mean [Left Arm] 78 Blood Pressure Position Pulse Oximetry 94 95 94 Oxygen Delivery Method Nasal Cannula Oxygen Flow Rate 2 Sepsis Recent Fever Within 48 Hours Sepsis Action Taken by Nursing 06/01/19 21:25 Temperature Temperature Source Pulse Rate 108 H Pulse Rate [Apical] Pulse Rate from SpO2 Sensor 91 H Respiratory Rate 24 Respiratory Effort / Characteristics Respiratory Depth Blood Pressure Blood Pressure [Left Arm] Blood Pressure Mean Blood Pressure Mean [Left Arm] Blood Pressure Position Pulse Oximetry 93 Oxygen Delivery Method Oxygen Flow Rate Sepsis Recent Fever Within 48 Hours Sepsis Action Taken by Nursing GENERAL: Patient is in no acute distress. HEENT: No acute trauma, normocephalic atraumatic, mucous membranes dry, no nasal congestion, no scleral icterus. NECK: No stridor, no adenopathy, no meningismus, trachea is midline. LUNGS: Clear to auscultation bilaterally, no wheeze, no rhonchi, breath sounds equal. HEART: Tachycardic with an irregular rhythm, no murmur. ABDOMEN: Soft, nontender, bowel sounds positive, no hernias, no peritonitis. EXTREMITIES: No cyanosis or edema, full range of motion of all the joints without pain or difficulty, no signs for acute trauma. NEUROLOGIC: Oriented x 3, no acute motor or sensory deficits, no focal weakness. SKIN: No rash, no jaundice, no diaphoresis. Course Course 1839: The patient was evaluated in room A01. A complete history and physical exam was performed. 1915: I reevaluated the patient, and she was feeling improved. Her heart rate was down to 120 at this time. 2019: I reassessed the patient, and she stated that she was feeling better. The drip will be continued. 2158: I spoke with Dr. Linn, [facility] hospitalist, about the patient's case. He will further evaluate the patient. Administered Medications Discontinued Medications Carvedilol (Coreg) 25 mg PO NOW ONE Stop: 06/01/19 22:06 Last Admin: 06/01/19 22:21 Dose: 25 mg Documented by: [id number] Diltiazem HCl (Cardizem) Confirm Administered Dose 25 mg IV .STK-MED ONE Stop: 06/01/19 18:49 Last Admin: 06/01/19 19:02 Dose: Not Given Documented by: [id number] Diltiazem HCl (Cardizem) 15 mg IV NOW STA Stop: 06/01/19 18:49 Last Admin: 06/01/19 18:59 Dose: 15 mg Documented by: [id number] Cosigned by: [id number] Sodium Chloride (Nss) 500 mls @ 999 mls/hr IV .Q31M SAGAR Stop: 06/01/19 19:30 Last Infusion: 06/01/19 19:32 Dose: 0 mls/hr Documented by: [id number] Admin: 06/01/19 19:02 Dose: 999 mls/hr Documented by: [id number] Diltiazem HCl 125 mg/ Dextrose 125 mls @ 0 mls/hr IV .Q0M STA; Protocol Stop: 06/01/19 18:49 Last Titration: 06/01/19 19:57 Dose: 10 mg/hr, 10 mls/hr Documented by: [id number] Cosigned by: [id number] Admin: 06/01/19 19:13 Dose: 5 mg/hr, 5 mls/hr Documented by: [id number] Cosigned by: [id number] Critical Care Time Critical Care Time: Yes Total Critical Care Time: 47 I have personally spent 47 minutes of critical care time in the direct management of this patient. This includes bedside care, interpretation of diagnostic studies, and testing, discussion with consultants, patient, and family members, and other required patient management activities. This 47 min utes is in excess of all separately billable procedures. Medical Decision Making Differential Diagnosis The differential diagnosis includes: Rapid A-fib, electrolyte imbalance, anemia, dehydration, renal failure, VA, angina, and CHF Medical Records Attestation: I reviewed the patient's medical records. Home Medications Current Medication List: was personally reviewed by me Laboratory Data Attestation: I reviewed the patient's lab results. Result diagrams: 06/01/19 18:52 06/01/19 18:52 Lab Results 06/01/19 06/01/19 06/01/19 Range/Units 18:52 18:52 18:52 WBC 15.97 H (4.8-10.8) K/uL RBC 4.62 (4.2-5.4) M/uL Hgb 15.1 (12.0-16.0) g/dL Hct 45.0 (37-47) % MCV 97.4 (80-100) fL MCH 32.7 (25-34) pg MCHC 33.6 (32-36) g/dL RDW Std Deviation 49.7 H (36.4-46.3) fL RDW Coeff of Carmenza 14.0 (11.5-14.5) % Plt Count 302 (130-400) K/uL MPV 9.4 (7.4-10.4) fL Immature Gran % (Auto) 0.3 % Neut % (Auto) 83.4 % Lymph % (Auto) 8.9 % Mclennan % (Auto) 6.6 % Eos % (Auto) 0.6 % Baso % (Auto) 0.2 % Immature Gran # (Auto) 0.05 H (0.00-0.02) K/uL Neut # (Auto) 13.32 H (1.4-6.5) K/uL Lymph # (Auto) 1.42 (1.2-3.4) K/uL Mclennan # (Auto) 1.05 H (0.11-0.59) K/uL Eos # (Auto) 0.10 (0-0.5) K/uL Baso # (Auto) 0.03 (0-0.2) K/uL PT 10.7 (9.0-12.0) Seconds INR 1.0 (0.9-1.1) APTT 25.7 (21.0-31.0) Seconds PTT Ratio 0.9 Sodium 139 (136-145) mmol/L Potassium 5.0 (3.5-5.1) mmol/L Chloride 107 (98-107) mmol/L Carbon Dioxide 24 (21-32) mmol/L Anion Gap 8.0 (3-11) BUN 20 H (7-18) mg/dl Creatinine 1.10 (0.6-1.2) mg/dl Est Cr Clr Drug Dosing 42.0 ml/min Est GFR ( Amer) 54.1 Est GFR (Non-Af Amer) 46.7 BUN/Creatinine Ratio 18.1 (10-20) Glucose 136 H (70-99) mg/dl Calcium 9.1 (8.5-10.1) mg/dl Magnesium 2.1 (1.8-2.4) mg/dl Total Bilirubin 0.5 (0.2-1) mg/dl AST 22 (15-37) U/L ALT 37 (12-78) U/L Alkaline Phosphatase 107 (45-117) U/L Troponin I 0.020 (0-0.045) ng/ml NT-Pro-B Natriuret Pep 71663 H (0-1800) pg/ml Total Protein 6.9 (6.4-8.2) gm/dl Albumin 3.1 L (3.4-5.0) gm/dl Globulin 3.8 (2.5-4.0) gm/dl Albumin/Globulin Ratio 0.8 L (0.9-2) Lipase 74 (73-393) U/L Specimen Hemolysis 06/01/19 Range/Units 18:52 WBC (4.8-10.8) K/uL RBC (4.2-5.4) M/uL Hgb (12.0-16.0) g/dL Hct (37-47) % MCV (80-100) fL MCH (25-34) pg MCHC (32-36) g/dL RDW Std Deviation (36.4-46.3) fL RDW Coeff of Carmenza (11.5-14.5) % Plt Count (130-400) K/uL MPV (7.4-10.4) fL Immature Gran % (Auto) % Neut % (Auto) % Lymph % (Auto) % Mclennan % (Auto) % Eos % (Auto) % Baso % (Auto) % Immature Gran # (Auto) (0.00-0.02) K/uL Neut # (Auto) (1.4-6.5) K/uL Lymph # (Auto) (1.2-3.4) K/uL Mclennan # (Auto) (0.11-0.59) K/uL Eos # (Auto) (0-0.5) K/uL Baso # (Auto) (0-0.2) K/uL PT (9.0-12.0) Seconds INR (0.9-1.1) APTT (21.0-31.0) Seconds PTT Ratio Sodium (136-145) mmol/L Potassium (3.5-5.1) mmol/L Chloride (98-107) mmol/L Carbon Dioxide (21-32) mmol/L Anion Gap (3-11) BUN (7-18) mg/dl Creatinine (0.6-1.2) mg/dl Est Cr Clr Drug Dosing ml/min Est GFR ( Amer) Est GFR (Non-Af Amer) BUN/Creatinine Ratio (10-20) Glucose (70-99) mg/dl Calcium (8.5-10.1) mg/dl Magnesium (1.8-2.4) mg/dl Total Bilirubin (0.2-1) mg/dl AST (15-37) U/L ALT (12-78) U/L Alkaline Phosphatase (45-117) U/L Troponin I (0-0.045) ng/ml NT-Pro-B Natriuret Pep Cancelled (0-1800) pg/ml Total Protein (6.4-8.2) gm/dl Albumin (3.4-5.0) gm/dl Globulin (2.5-4.0) gm/dl Albumin/Globulin Ratio (0.9-2) Lipase (73-393) U/L Specimen Hemolysis Imaging Data Radiologist's Impression: Radiology results as stated below per my review and the radiologist's interpretation: XR chest 1V portable HISTORY: 83 years-old Female Chest Pain acute atypical chest pain COMPARISON: Chest radiograph 08/19/2017 TECHNIQUE: Portable AP view of the chest FINDINGS: The cardiac silhouette is enlarged, unchanged. Calcified plaque of the thoracic aortic arch. Pulmonary vascular congestion. Asymmetric right hilar prominence. No pneumothorax. Probable trace pleural effusions with bibasilar densities. Degenerative changes of the shoulders and spine. IMPRESSION: 1. Cardiomegaly with pulmonary vascular congestion and interstitial coarsening suggestive of mild pulmonary edema. 2. Trace pleural effusions with bibasilar opacities suggestive of probable atelectasis. ACT 112: Negative or not required by law. The above report was generated using voice recognition software. It may contain grammatical, syntax or spelling errors. Electronically signed by: Oracio Valle M.D. 06/01/2019 7:25 PM ECG Data Attestation: I personally reviewed and interpreted this ECG as follows: Indication: + chest pain Rate (beats per minute): 162 Rhythm: + atrial fibrillation (rapid) ECG Findings: + LVH and + Other (Lateral T-wave inversion, QTC is 476) Comparison ECG Date: from (01/28/17) Change: the following changes noted (A-fib is new and the rate is increased) Blood Pressure Blood Pressure Findings: Elevated blood pressure Blood Pressure Disposition: further management by hospitalist MDM Narrative There is a moderate leukocytosis, this is consistent with infection or the stress of her situation. No anemia. No coagulopathy. No significant electrolyte abnormality or kidney failure. No liver enzyme elevation. Cardiac enzyme testing x1 is not consistent with acute cardiac injury. EKG shows a rapid A. fib, no acute ischemic change. Chest x-ray shows some potential congestion/CHF, no pneumonia. No pneumothorax. The patient presents with a rapid A. fib. She was aggressively managed. She was given a bolus of IV diltiazem and then placed on a diltiazem drip. The drip was tapered to affect. She received a 500 cc saline bolus. The patient is feeling improved, her heart rate has decreased. Her blood pressure is adequate. The patient is in need of a hospital stay. She presents with shortness of breath and chest discomfort and was found to be in a rapid A. fib. The time for which she has been in A. fib is unclear. I spoke to the patient and case management. The on-call hospitalist was consulted. Continuous Cardiac Monitoring: An order was placed for continuous cardiac monitoring. The monitor shows a rate of 112 with rapid A. fib. Impression & Plan Rapid atrial fibrillation, Weakness, Chest pain, precordial, SOB (shortness of breath) Discharge Plan Visit Data *Final* Discharge Date/Time: 06/01/19 23:02 Chief Complaint: Cardiac Assessment Stated Complaint: afib w/ SOB ED Provider: Wai Santos Discharge Problem: Rapid atrial fibrillation, Weakness, Chest pain, precordial, SOB (shortness of breath) Patient Disposition: Admitted As Inpatient Discharge Instructions Interventions: ED Discharge Assessment Last Done: 06/01/19 23:02 The scribe's documentation has been prepared under my direction and personally reviewed by me in its entirety. I confirm that the note above accurately reflects all work, treatment, procedures, and medical decision making performed by me.
[2019-06-01 19:09] LABS: Basophils # (auto) 0.03 K/uL (0-0.2); Basophils % (auto) 0.2 %; Eosinophils % (auto) 0.6 %; Hemoglobin 15.1 g/dL (12.0-16.0); Immature Granulocytes # (auto) 0.05 K/uL (0.00-0.02); Immature Granulocytes % (auto) 0.3 %; Lymphocytes # (auto) 1.42 K/uL (1.2-3.4); Lymphocytes % (auto) 8.9 %; Mean Corpuscular Hemoglobin 32.7 pg (25-34); Mean Corpuscular Hgb Conc 33.6 g/dL (32-36); Mean Corpuscular Volume 97.4 fL (80-100); Mean Platelet Volume 9.4 fL (7.4-10.4); Monocytes # (auto) 1.05 K/uL (0.11-0.59); Monocytes % (auto) 6.6 %; Neutrophils # (auto) 13.32 K/uL (1.4-6.5); Neutrophils % (auto) 83.4 %; Platelet Count 302 K/uL (130-400); RDW Standard Deviation 49.7 fL (36.4-46.3); Red Blood Count 4.62 M/uL (4.2-5.4); White Blood Count 15.97 K/uL (4.8-10.8)
--- NOTE | 2019-06-01 19:26 | XRay Report ---
XR chest 1V portable HISTORY: 83 years-old Female Chest Pain acute atypical chest pain COMPARISON: Chest radiograph 08/19/2017 TECHNIQUE: Portable AP view of the chest FINDINGS: The cardiac silhouette is enlarged, unchanged. Calcified plaque of the thoracic aortic arch. Pulmonar y vascular congestion. Asymmetric right hilar prominence. No pneumothorax. Probable trace pleural eff usions with bibasilar densities. Degenerative changes of the shoulders and spine. IMPRESSION: 1. Cardiomegaly with pulmonary vascular congestion and interstitial coarsening suggestive of mild pul monary edema. 2. Trace pleural effusions with bibasilar opacities suggestive of probable atelectasis. ACT 112: Negative or not required by law. The above report was generated using voice recognition software. It may contain grammatical, syntax o r spelling errors. Electronically signed by: Oracio Valle M.D. 06/01/2019 7:25 PM
[2019-06-01 19:38] LABS: Partial Thromboplastin Ratio 0.9; Partial Thromboplastin Time 25.7 Seconds (21.0-31.0); Prothrombin Time 10.7 Seconds (9.0-12.0)
[2019-06-01 19:47] LABS: Albumin Level 3.1 gm/dl (3.4-5.0); BUN Creatinine Ratio 18.1 (10-20); Calcium 9.1 mg/dl (8.5-10.1); Est GFR (African American) 54.1; Est GFR (Non-African American) 46.7; Magnesium 2.1 mg/dl (1.8-2.4)
[2019-06-01 19:56] LABS: Albumin Globulin Ratio 0.8 (0.9-2); Bilirubin,Total 0.5 mg/dl (0.2-1); Globulin 3.8 gm/dl (2.5-4.0); Total Protein 6.9 gm/dl (6.4-8.2); Troponin I 0.02 ng/ml (0-0.045)
[2019-06-01] MEDS ORDERED: POLYETHYLENE (MIRALAX) 17 GM PACK PO PRN (21:29)
[2019-06-01] MEDS ORDERED: ONDANSETRON INJ 2 MG/ML 2 ML VIAL IV PRN (21:29)
[2019-06-01] MEDS ORDERED: ALUMINUM/MAGNESIUM SUSP 30 ML UDC PO PRN (21:29)
[2019-06-01] MEDS ORDERED: ACETAMINOPHEN 325 MG TAB PO PRN (21:29)
[2019-06-01] MEDS ORDERED: MAGNESIUM HYDROXIDE SUSP 30 ML UDC PO PRN (21:29)
--- NOTE | 2019-06-01 22:03 | History & Physical Report ---
Date of Service June 01, 2019 Assessment & Plan (1) Rapid atrial fibrillation: Pt is a pleasant 83yo with a PMHx significant for CHF, DMII, CKD Stage III s/p stent placement in renal artery, fibromyalgia and HTN who presented with a 2 week Hx of exertional dyspnea and dizziness, and was found to be in atrial fibrillation with rapid ventricular rate. Atrial Fibrillation with RVR -Pt with SOB, "funny feeling" in chest, dizziness at home -Tachycardic to 160s on presentation, pt states first time HR so high -likely set off by acute infection (see below) -CHADsVASc score of 6 with ~10% chance of stroke -started on a cardiazem drip in the ED for rate control -will give home carvedilol 25mg dose and titrate off the cardizem drip; continue IV Lopressor as needed -consult placed to [facility] Cardiology Dr. Russell -anticoagulation started with Heparin drip (no Bolus); can consider switching to NOAC in AM -Echo pending -will continue to monitor Community Acquired Pneumonia -Pt with runny nose, no noted fevers chills night sweats or cough -flu test pending -Chest XR with pulm congestion and bibasilar opacities highly suggestive of an infectious process -started on rocephin and doxycycline (not azithromycin as potential for QT prolongation and additional stressor on the heart above) -potential trigger for a fib above. Hyperkalemia -Pt with noted K+ to 5.0 -will decrease home spironolactone to 50mg daily from 100mg -continue to monitor CHF -Pt with new oxygen requirement; does not look volume overloaded -Pt with Hx of CHF but no records in chart of recent echo, no noted EF -Echo pending -will continue home spironolactone 50mg instead of 100mg. CKD -Cr within normal limits -continue home Plavix and aspirin post stent placement HTN -not currently an issue -will hold home hydralazine DMII -last noted hgba1c of 6.1 in Feb 2019 -hold home glipizide -ISS Fibromyalgia -hold home amitryptyline and venlafaxine as potential qt prolongation agents -continue home gabapentin 100mg daily -can restart once rate controlled. HLD -continue home statin FEN/GI: heart healthy DVT prophylaxis: On heparin, home Plavix and aspirin CODE STATUS: Full Dispo: PCU/Tele History of Present Illness Primary Care Provider: Nile Alan MD Pt is a pleasant 83yo with a PMHx significant for CHF, DMII, CKD Stage III s/p stent placement in renal artery, fibromyalgia and HTN who presented with a 2 week Hx of exertional dyspnea and dizziness, and was found to be in atrial fibrillation with rapid ventricular rate. States that she has been having exertional dyspnea for the last 2 weeks, but did not want to be hospitalized. However, today it became unbearable after measuring a quilt at home. States it took a lot out of her with associated fatigue, weakness, SOB, dizziness and lightheadedness. Denies syncope though daughter in the room admits to a Hx of recent falls. Has CKD but is s/p stent placement and on home plavix and aspirin since then. Is a current smoker, of 6 cigarettes a day. has smoked most of her life except for a period of 7 years when she quit. Started again after the of her . [place] but son lives down the street. Occasional wine cooler drinker. No recreational drug use. ROS as below. Allergies Allergy/AdvReac Type Severity Reaction Status Date / Time duloxetine Allergy Severe Diarrhea Verified 03/06/19 14:53 SOLANGE Inhibitors Allergy Unknown Verified 03/06/19 14:52 alendronate sodium Allergy Unknown UNKNOWN Verified 03/06/19 14:52 ARB-Angiotensin Receptor Allergy Unknown Verified 03/06/19 14:52 Antagonist cisapride Allergy Unknown UNKNOWN Verified 03/06/19 14:52 diazepam Allergy Unknown UNKNOWN Verified 03/06/19 14:52 nabumetone Allergy Unknown UNKNOWN Verified 03/06/19 14:52 NSAIDS (Non-Steroidal Allergy Unknown Verified 03/06/19 14:52 Anti-Inflamma phenazopyridine Allergy Unknown UNKNOWN Verified 03/06/19 14:52 Sulfa (Sulfonamide Allergy Unknown UNKNOWN Unverified 03/06/19 14:52 Antibiotics) sulindac Allergy Unknown UNKNOWN Verified 03/06/19 14:52 Home Medications Home Medications Medication Instructions Recorded Confirmed Type aspirin 81 mg tablet,delayed 81 mg PO QAM 12/11/18 06/01/19 History release carvedilol 25 mg tablet 25 mg PO BID #180 tab 12/16/18 06/01/19 Rx hydralazine 100 mg tablet 100 mg PO BID #180 tab 12/16/18 06/01/19 Rx amitriptyline 50 mg tablet 50 mg PO HS #90 tab 12/22/18 06/01/19 Rx atorvastatin [Lipitor] 20 mg PO QAM 06/01/19 06/01/19 History calcitriol 0.25 mcg PO QAM 06/01/19 06/01/19 History clopidogrel [Plavix] 75 mg PO QAM 06/01/19 06/01/19 History gabapentin 100 mg PO HS 06/01/19 06/01/19 History glipizide 2.5 mg PO QAM 06/01/19 06/01/19 History spironolactone 100 mg PO QAM 06/01/19 06/01/19 History venlafaxine 75 mg PO QPM 06/01/19 06/01/19 History Past Med/Surg History Medical History Depression Fibromyalgia Hyperlipidemia Hypertension Peripheral neuropathy Stage 3 chronic kidney disease Type 2 diabetes mellitus Social History Preferred Language: Pashto Communication Ability: Effective Hearing Ability: Hard of Hearing 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 marital status: / Current Living Situation: Alone Current Living Situation Comment: son lives close, daughter checks in on her current occupational status: retired Feels Safe at Home: Yes Safety Concerns: Feels Safe At This Time Smoking Status: Current every day smoker Tobacco Type: cigarettes ; Cigarettes Per Day: 5-6 ; Tobacco Cessation Education Requested by Patient: No Hx Substance Use: No Seatbelt Use: always Review of Systems Constitutional: + fatigue and + weakness; no fever, no chills and no sweats Eyes: + worsening vision Ear, Nose, Mouth, Throat: + dizziness and + nasal congestion; no sore throat Respiratory: + dyspnea and + dyspnea on exertion; no cough Cardiovascular: + chest pain, + dyspnea on exertion, + palpitations and + lightheadedness; no edema and no calf pain Gastrointestinal: no abdominal pain, no nausea, no vomiting, no constipation and no diarrhea/loose stools Genitourinary: no dysuria and no hematuria Musculoskeletal: + muscle weakness; no body aches Neurologic: + dizziness; no tingling, no numbness and no headache(s) Psychiatric: + depression Physical Exam Physical Exam: General: Alert, oriented. No acute distress, sitting in bed with NC in nares. Speech halting. Skin: No noted rashes or bruises, but insect bite noted on right shoulder Psych: Appropriate mood and affect Neuro: No gross deficits HEENT: NC/AT, PERRLA, EOMI, oropharynx moist. Chest: Nontender to palpation. CV:Irregular rate and rhythm. No murmurs appreciated Resp: Breath sounds with scattered expiratory wheezes bilaterally. Abdomen: BS+. Soft, nontender, nondistended. No guarding. No organomegaly appreciated. Extremities: No edema in lower extremities bilaterally. Results & Data Vital Signs (Past 12 Hours) Vital Signs Temp Pulse Pulse Resp BP BP Pulse Ox 06/01/19 21:25 108 H 24 93 06/01/19 21:20 123 H 21 94 06/01/19 21:17 128 H 20 112/61 95 06/01/19 21:16 121 H 21 112/61 94 06/01/19 21:15 138 H 26 H 90 06/01/19 21:10 122 H 24 94 06/01/19 21:05 121 H 28 H 95 06/01/19 21:00 112 H 95 06/01/19 20:45 131 H 22 94 06/01/19 20:34 132 H 22 101/85 93 06/01/19 20:26 161 H 29 H 94 06/01/19 20:25 128 H 138 H 34 H 121/84 121/84 95 06/01/19 20:20 133 H 129 H 34 H 108/78 94 06/01/19 20:18 152 H 32 H 94 06/01/19 20:16 126 H 32 H 91 06/01/19 20:15 127 H 25 H 92 06/01/19 20:10 92 06/01/19 20:06 132 H 91 06/01/19 20:04 129 H 107/86 92 06/01/19 20:00 139 H 136 H 18 107/68 93 06/01/19 19:55 119 H 91 06/01/19 19:50 141 H 92 06/01/19 19:45 142 H 92 06/01/19 19:40 115 H 93 06/01/19 19:35 144 H 91 06/01/19 19:30 138 H 92 06/01/19 19:27 135 H 124/38 L 92 06/01/19 19:22 120 H 127/84 93 06/01/19 19:15 139 H 161/112 H 93 06/01/19 19:14 140 H 18 161/112 H 95 06/01/19 19:06 146 H 93 06/01/19 19:04 157 H 127/75 91 06/01/19 18:56 150 H 116/87 92 06/01/19 18:51 165 H 149/121 H 94 06/01/19 18:49 161 H 129/82 94 06/01/19 18:35 37.4 C 146 H 27 H 129/82 92 Supervising Physician Co-Signing Physician Notes Attending addendum: I have physically seen this patient, have supervised the medical residents activities, and agree with the H&P unless as otherwise noted. Assessment and Plan: Atrial fibrillation with RVR- The patient will be admitted to telemetry for serial cardiac enzymes, serial EKG's, cardiac rhythm monitoring and a 2-D echocardiogram with Dopplers. Has already been started on Cardizem drip after 16 mg IV Cardizem bolus while in the ED. We will give patient her evening carvedilol 25 mg dosing. And then work on tapering Cardizem drip to off. Lopressor 5 mg IV every 4 hours as needed heart rate greater than 110. Consult cardiology Start patient on heparin drip this evening and have daytime team to convert to oral anticoagulation. Community-acquired pneumonia- Ceftriaxone IV and doxycycline as noted. Remainder of orders and notations as noted. Resident Activity Tracking Resident Involvement: Resident Care Provided Care Provided: Adult Hospital Medicine
[2019-06-01] MEDS ORDERED: carvediloL 25 MG TAB PO ONE (22:05)
[2019-06-01] MEDS ORDERED: CARBOHYDRATES FOR HYPOGLYCEMIA PO PRN (23:46)
[2019-06-01] MEDS ORDERED: GLUCOSE 10 TABS/TUBE PO PRN (23:46)
[2019-06-01] MEDS ORDERED: GLUCOSE 40% GEL 15 GM TUBE PO PRN (23:46)
[2019-06-01] MEDS ORDERED: GLUCAGON FOR INJ 1 MG VIAL SQ PRN (23:46)
[2019-06-01] MEDS ORDERED: DEXTROSE 50% 50 ML SYRINGE IV PRN (23:46)
[2019-06-02 00:26] LABS: Influenza A virus by PCR Neg for Influ A (Neg); Influenza B virus by PCR Neg for Influ B (Neg)
[2019-06-02] MEDS: carvediloL 25 MG TAB PO SCH ×3 (00:28→20:55)
[2019-06-02] MEDS: HEPARIN SODIUM/DEXTROSE 25,000 UNITS/500 ML BAG IV SCH ×2 (01:20→17:26)
[2019-06-02] MEDS: cefTRIAXone SODIUM 2,000 MG in DEXTROSE 5% 50 ML IV SCH (01:20)
[2019-06-02] MEDS: DOXYCYCLINE HYCLATE 100 MG CAP PO SCH ×3 (01:21→20:56)
[2019-06-02] MEDS: Heparin IV Standard *NO* Bolus IV SCH ×4 (01:29→16:11)
[2019-06-02] MEDS ORDERED: Nursing to Pharmacy Communication ONE (03:25)
[2019-06-02] MEDS ORDERED: STAT IV Infusion **Titration per Protocol STA (03:40)
[2019-06-02] MEDS ORDERED: dilTIAZem HCL 125 MG in DEXTROSE 5% 100 ML IV SCH (03:45)
[2019-06-02 08:00] LABS: Basophils # (auto) 0.02 K/uL (0-0.2); Basophils % (auto) 0.2 %; Eosinophils # (auto) 0.19 K/uL (0-0.5); Eosinophils % (auto) 1.7 %; Hematocrit (blood only) 40.5 % (37-47); Hemoglobin 13.2 g/dL (12.0-16.0); Immature Granulocytes # (auto) 0.03 K/uL (0.00-0.02); Immature Granulocytes % (auto) 0.3 %; Lymphocytes # (auto) 2.22 K/uL (1.2-3.4); Mean Corpuscular Hemoglobin 31.9 pg (25-34); Mean Corpuscular Hgb Conc 32.6 g/dL (32-36); Mean Corpuscular Volume 97.8 fL (80-100); Mean Platelet Volume 9.4 fL (7.4-10.4); Monocytes # (auto) 0.84 K/uL (0.11-0.59); Monocytes % (auto) 7.6 %; Neutrophils # (auto) 7.78 K/uL (1.4-6.5); Neutrophils % (auto) 70.2 %; Platelet Count 252 K/uL (130-400); RDW Standard Deviation 49.6 fL (36.4-46.3); Red Blood Count 4.14 M/uL (4.2-5.4); White Blood Count 11.08 K/uL (4.8-10.8)
[2019-06-02 08:05] LABS: Partial Thromboplastin Ratio 1.3
[2019-06-02 08:14] LABS: BUN Creatinine Ratio 20.9 (10-20); Calcium 8.8 mg/dl (8.5-10.1); Creatinine Clr Calc Pharmacy 43.9 ml/min; Est GFR (African American) 57.9
[2019-06-02] MEDS: INSULIN ASPART 100 UNITS/ML 3 ML PEN SC SCH ×4 (08:25→21:06)
[2019-06-02] MEDS: CALCITRIOL 0.25 MCG CAPSULE PO SCH (08:26)
[2019-06-02] MEDS: CLOPIDOGREL BISULFATE 75 MG TAB PO SCH (08:26)
[2019-06-02] MEDS: ASPIRIN 81 MG ECTAB PO SCH (08:26)
[2019-06-02] MEDS: SPIRONOLACTONE 25 MG TAB PO SCH (08:26)
[2019-06-02] MEDS: ATORVASTATIN 20 MG TAB PO SCH (08:26)
[2019-06-02] MEDS ORDERED: HEPARIN IV BOLUS 5,000 UNITS in SYRINGE 0 ML IV ONE (08:30)
[2019-06-02 09:35] LABS: Estimated Average Glucose 137 mg/dl; Hemoglobin A1C 6.4 % (4.5-5.6)
[2019-06-02] MEDS ORDERED: dilTIAZem HCL 30 MG TAB PO ONE (09:41)
--- NOTE | 2019-06-02 09:44 | XCELERA ---
[id number] \\[id number]
--- NOTE | 2019-06-02 10:17 | Cardiology Consultation ---
Date of Consultation June 02, 2019 Assessment & Plan (1) Rapid atrial fibrillation: Patient presented with progressive dyspnea and weakness over the previous 3 weeks or so. She was in atrial fibrillation with RVR on arrival and has since been initiated on a diltiazem drip with improvement in her rate. She is also on heparin infusion. Will initiate PO diltiazem 30 mg q 6 hours and then hopefully wean her off her diltiazem drip. She will continue with her PO Coreg 25 mg twice daily. She does have an elevated CHADSVASc score and long-term anticoagulation therapy is therefore indicated for thromboembolic prophylaxis. She is currently on a combination of aspirin and Plavix given her history of renal artery stenting in 2017. Given the fact that the stents are over 2 years old now, her aspirin could be discontinued and perhaps even her Plavix. Will defer to the primary service and/or her Vascular surgeon as to what should be done with her antiplatelet therapy. In regards to anticoagulation, would recommend a novel anticoagulant such as Eliquis 5 mg twice daily. Patient discussed with Dr. Russell. Supervising Physician Co-Signing Physician Notes I saw and examined the patient at the bedside and agree with the documentation by Sussy Gonzalez PA-C. Briefly, the patient had some constitutional symptoms and primarily breathing difficulty over the past few days. She presented emergency room she was noted to be in atrial fibrillation with rapid ventricular response. The duration of the arrhythmia is unclear. She was not definitely where palpitations. No significant chest pains. No evidence of an acute coronary syndrome. Echocardiogram demonstrates the appropriate substrate for atrial fibrillation which includes an element of left ventricular hypertrophy and left atrial enlargement. She appears to have improved rate control on diltiazem and we will continue to titrate her oral diltiazem to determine effective dose. She will be started on systemic anticoagulation for stroke prevention. Also of her breathing difficulty could be related to a change in rhythm, she may also have an element of pulmonary vascular congestion. She had elevated N terminal proBNP and evidence of pulmonary vascular congestion on both exam and chest x-ray. I think given her dose of Lasix may improve her symptoms. History of Present Illness Reason for Consultation: Atrial fibrillation with RVR Requesting Physician: Dr. Chaudhry History of Present Illness Mrs. Alvarez is an 83-year-old female who was admitted lasted evening in the setting of atrial fibrillation with RVR. The patient has a history of fibromyalgia, and she states that in early May she began to feel poorly with what she thought was a "fibromyalgia attack." She states that she noted back and leg pain as well as weakness. Around that time, she also developed exertional dyspnea with activities such as walking from room to room in her home. She had an associated aching discomfort in the left side of her chest with the dyspnea, and her symptoms would resolve with rest. She did not experience orthopnea, PND, or edema. She noted some orthostatic lightheadedness, but no syncope or presyncope. She did not experience any palpitations. Due to worsening of her symptoms, she decided to go to the ER for further evaluation. On arrival, she was found to be in atrial fibrillation with a rapid heart rate of 162. She has since been initiated on a diltiazem drip in addition to her PATIENT ACCOUNTING REPRESENTATIVE Coreg with improvement in her rate. She is also being treated for possible pneumonia. She states that she is still feeling rather weak, and she is unable to sit up in bed for any prolonged period of time. She denies abnormal bleeding such as melena, hematochezia, or hematuria. She denies cerebrovascular symptoms. She denies fevers, chills, cough, or congestion. Past medical history: 1. 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 Hypertension 3. Fibromyalgia 4. History of diastolic CHF 5. Type 2 diabetes mellitus 6. Osteoarthritis 7. Chronic cystitis Family history: No family history of premature CAD. History of cancer and diabetes. Social history: She is a and lives alone on a farm. She has 4 living children. One daughter . She has numerous grandchildren and great grandchildren. She currently smokes about 5-6 cigarettes a day. She previously smoked for 20 years but quit for a period of time. She restarted smoking after her 6 years ago. No alcohol use. Allergies Allergy/AdvReac Type Severity Reaction Status Date / Time duloxetine Allergy Severe Diarrhea Verified 03/06/19 14:53 SOLANGE Inhibitors Allergy Unknown Verified 03/06/19 14:52 alendronate sodium Allergy Unknown UNKNOWN Verified 03/06/19 14:52 ARB-Angiotensin Receptor Allergy Unknown Verified 03/06/19 14:52 Antagonist cisapride Allergy Unknown UNKNOWN Verified 03/06/19 14:52 diazepam Allergy Unknown UNKNOWN Verified 03/06/19 14:52 nabumetone Allergy Unknown UNKNOWN Verified 03/06/19 14:52 NSAIDS (Non-Steroidal Allergy Unknown Verified 03/06/19 14:52 Anti-Inflamma phenazopyridine Allergy Unknown UNKNOWN Verified 03/06/19 14:52 Sulfa (Sulfonamide Allergy Unknown UNKNOWN Unverified 03/06/19 14:52 Antibiotics) sulindac Allergy Unknown UNKNOWN Verified 03/06/19 14:52 Home Medications Home Medications Medication Instructions Recorded Confirmed Type aspirin 81 mg tablet,delayed 81 mg PO QAM 12/11/18 06/01/19 History release carvedilol 25 mg tablet 25 mg PO BID #180 tab 12/16/18 06/01/19 Rx hydralazine 100 mg tablet 100 mg PO BID #180 tab 12/16/18 06/01/19 Rx amitriptyline 50 mg tablet 50 mg PO HS #90 tab 12/22/18 06/01/19 Rx atorvastatin [Lipitor] 20 mg PO QAM 06/01/19 06/01/19 History calcitriol 0.25 mcg PO QAM 06/01/19 06/01/19 History clopidogrel [Plavix] 75 mg PO QAM 06/01/19 06/01/19 History gabapentin 100 mg PO HS 06/01/19 06/01/19 History glipizide 2.5 mg PO QAM 06/01/19 06/01/19 History spironolactone 100 mg PO QAM 06/01/19 06/01/19 History venlafaxine 75 mg PO QPM 06/01/19 06/01/19 History Patient History Medical History Depression Fibromyalgia Hyperlipidemia Hypertension Peripheral neuropathy Stage 3 chronic kidney disease Type 2 diabetes mellitus Social History Preferred Language: Prydeinig Communication Ability: Effective Hearing Ability: Hard of Hearing 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 EOMs intact. Sclera non-icteric. Face is symmetric. No perioral cyanosis. Mucous membranes moist Neck: Supple, no JVD Pulmonary: Normal respiratory effort, bibasilar crackles Cardiac: Irregularly irregular, normal S1 and S2, no gallops, no rubs, no murmurs Extremities: No edema. No clubbing or cyanosis. Pulses 2+ and symmetric Abdomen: Obese. Normal bowel sounds, soft, non-tender, no abdominal masses palpated Skin: Normal skin color, turgor, and pigmentation. No rash or skin lesions Neurological: Oriented to person, place, and time Results & Data ([facility]) Vital Signs (Past 12 Hours) Vital Signs Temp Pulse Pulse Resp BP BP Pulse Ox 06/02/19 07:01 97.9 F 110 H 20 138/85 94 06/02/19 05:38 139/79 06/02/19 03:17 98.2 F 125 H 20 141/81 H 96 06/02/19 01:00 96 H 06/01/19 23:30 97.9 F 93 06/01/19 23:05 104 H 26 H 94 06/01/19 23:00 87 30 H 93 06/01/19 22:55 111 H 19 91 06/01/19 22:50 104 H 32 H 93 06/01/19 22:46 123 H 29 H 103/70 92 06/01/19 22:45 127 H 31 H 93 06/01/19 22:40 120 H 23 93 06/01/19 22:35 134 H 22 90 06/01/19 22:31 114 H 29 H 114/62 95 06/01/19 22:30 129 H 26 H 90 06/01/19 22:25 120 H 25 H 95 06/01/19 22:20 116 H 32 H 92 06/01/19 22:16 116 H 28 H 137/75 94 06/01/19 22:15 117 H 29 H 93 06/01/19 22:10 110 H 20 95 06/01/19 22:05 116 H 29 H 94 06/01/19 22:00 114 H 25 H 94 Laboratory Results Laboratory Results WBC 11.08 K/uL (4.8-10.8) H 06/02/19 07: RBC 4.14 M/uL (4.2-5.4) L 06/02/19 07: Hgb 13.2 g/dL (12.0-16.0) 06/02/19 07: Hct 40.5 % (37-47) 06/02/19 07: MCV 97.8 fL (80-100) 06/02/19 07: MCH 31.9 pg (25-34) 06/02/19 07: MCHC 32.6 g/dL (32-36) 06/02/19 07: RDW Std Deviation 49.6 fL (36.4-46.3) H 06/02/19 07: RDW Coeff of Carmenza 14.0 % (11.5-14.5) 06/02/19 07: Plt Count 252 K/uL (130-400) 06/02/19 07: MPV 9.4 fL (7.4-10.4) 06/02/19 07: Immature Gran % (Auto) 0.3 % 06/02/19 07: Neut % (Auto) 70.2 % 06/02/19 07: Lymph % (Auto) 20.0 % 06/02/19 07: [place] % (Auto) 7.6 % 06/02/19 07: Eos % (Auto) 1.7 % 06/02/19 07: Baso % (Auto) 0.2 % 06/02/19 07: Immature Gran # (Auto) 0.03 K/uL (0.00-0.02) H 06/02/19 07: Neut # (Auto) 7.78 K/uL (1.4-6.5) H 06/02/19 07: Lymph # (Auto) 2.22 K/uL (1.2-3.4) 06/02/19 07: [place] # (Auto) 0.84 K/uL (0.11-0.59) H 06/02/19 07: Eos # (Auto) 0.19 K/uL (0-0.5) 06/02/19 07: Baso # (Auto) 0.02 K/uL (0-0.2) 06/02/19 07:29 PT 10.7 Seconds (9.0-12.0) 06/01/19 18:52 INR 1.0 (0.9-1.1) 06/01/19 18:52 APTT 35.0 Seconds (21.0-31.0) H 06/02/19 07:29 PTT Ratio 1.3 06/02/19 07:29 Sodium 139 mmol/L (136-145) 06/02/19 07:29 Potassium 4.0 mmol/L (3.5-5.1) D 06/02/19 07:29 Chloride 109 mmol/L (98-107) H 06/02/19 07:29 Carbon Dioxide 24 mmol/L (21-32) 06/02/19 07:29 Anion Gap 6.0 (3-11) 06/02/19 07:29 BUN 22 mg/dl (7-18) H 06/02/19 07:29 Creatinine 1.04 mg/dl (0.6-1.2) 06/02/19 07:29 Est Cr Clr Drug Dosing 43.9 ml/min 06/02/19 07:29 Est GFR ( Amer) 57.9 06/02/19 07:29 Est GFR (Non-Af Amer) 50.0 06/02/19 07:29 BUN/Creatinine Ratio 20.9 (10-20) H 06/02/19 07:29 Glucose 120 mg/dl (70-99) H 06/02/19 07:29 POC Glucose 135 mg/dl (70-99) H 06/02/19 07:55 Estimat Average Glucose 137 mg/dl 06/02/19 07:29 Hemoglobin A1c 6.4 % (4.5-5.6) H 06/02/19 07:29 Calcium 8.8 mg/dl (8.5-10.1) 06/02/19 07:29 Magnesium 2.1 mg/dl (1.8-2.4) 06/01/19 18:52 Total Bilirubin 0.5 mg/dl (0.2-1) 06/01/19 18:52 AST 22 U/L (15-37) 06/01/19 18:52 ALT 37 U/L (12-78) 06/01/19 18:52 Alkaline Phosphatase 107 U/L (45-117) 06/01/19 18:52 Troponin I 0.020 ng/ml (0-0.045) 06/01/19 18:52 NT-Pro-B Natriuret Pep 53605 pg/ml (0-1800) H 06/01/19 18:52 NT-Pro-B Natriuret Pep Cancelled 06/01/19 18:52 Total Protein 6.9 gm/dl (6.4-8.2) 06/01/19 18:52 Albumin 3.1 gm/dl (3.4-5.0) L 06/01/19 18:52 Globulin 3.8 gm/dl (2.5-4.0) 06/01/19 18:52 Albumin/Globulin Ratio 0.8 (0.9-2) L 06/01/19 18:52 Lipase 74 U/L (73-393) 06/01/19 18:52 Specimen Hemolysis 06/01/19 18:52 Influenza Type A (PCR) Neg for Influ A (Neg) 06/01/19 22:55 Influenza Type B (PCR) Neg for Influ B (Neg) 06/01/19 22:55 Diagnostic Findings CXR: 1. Cardiomegaly with pulmonary vascular congestion and interstitial coarsening suggestive of mild pulmonary edema. 2. Trace pleural effusions with bibasilar opacities suggestive of probable atelectasis. EKG: Atrial fibrillation with rapid ventricular response rate of 162 bpm. Left axis deviation. LVH. Possible septal infarct. ST-T wave abnormality. Echo: Normal LV systolic function. EF 55-60%. Severe LVH. Severely dilated left atrium. Moderate mitral annular calcification. Normal RVSP. PG Care Time/CCT Total # of Minutes Spent Total Time Spent with Patient: Total time spent is greater than 50% in coordination of care (as documented) at patient's floor/unit and/or counseling patient: Coding Level of Care Code 97163 Initial Inpt Care Lvl 3 Diagnoses Rapid atrial fibrillation I48.91
[2019-06-02] MEDS ORDERED: dilTIAZem HCL 30 MG TAB PO SCH (13:00)
[2019-06-02 15:46] LABS: Partial Thromboplastin Time 81.9 Seconds (21.0-31.0)
[2019-06-02] MEDS ORDERED: FUROSEMIDE 20 MG TAB PO ONE (16:30)
[2019-06-02] MEDS ORDERED: FUROSEMIDE 20 MG in SYRINGE 0 ML IV ONE (16:48)
--- NOTE | 2019-06-02 16:49 | Hospitalist Progress Note ---
Date of Service June 02, 2019 Assessment & Plan (1) Rapid atrial fibrillation: newly found/new-onset. rates very high at presentation. did improved w/ cardizem infusion. transitioned to PO cardizem 30 q6h. will titrate the cardizem again to 60mg q6h and follow rates. cont coreg 25 BID as previous. agree w/ cardiology good candidate for novel agent. will stop heparin drip; change to eliquis 5mg BID. will have nurse navigator for our team investigate cost to patient. check TSH to r/o hyperthyroidism. (2) Acute diastolic CHF (congestive heart failure): likely 2nd to uncontrolled a.fib. LV function preserved on echo. lasix 20mg IV x 1 and follow clinical response. bmp am. control the a.fib. (3) Diabetes type 2, controlled: a1c <6.5% novolog w/ meals (4) CKD (chronic kidney disease), stage III: baseline CrCl <60 recheck BMP am for stability (5) Fibromyalgia: cont home meds no issues (6) Hypertension: controlled (7) Abnormal chest x-ray: some ?pneumonia at presentation and thus community-aquired pneumonia abx i nitiated at time of admission. her pulmonary symptoms and chest x-ray findings may all be 2nd to pulmonary edema rather than infection. make decision tomorrow whether ongoing abx are necessary. (8) DVT prophylaxis: stop heparin drip transitioning to eliquis BID will obtain PT eval tomorrow care d/w Dr Russell Admission and Anticipated Discharge Date Admission Date: June 01, 2019 Subjective patient reports her dyspnea is improved relative to when she came into the hospital. [id number] she still has TRINIDAD after using the bathroom, etc. tele - despite addition of cardizem 30mg PO q6h rates at rest range 90s to 120s, with many >100. good appetite. no chest pain. does not feel palpitations. Review of Systems Constitutional: no fever and no chills Respiratory: + cough; no sputum production Cardiovascular: + dyspnea on exertion; no chest pain, no dyspnea at rest and no orthopnea Gastrointestinal: no abdominal pain and no bloating Physical Exam Constitutional: well developed and well nourished; no acute distress and no altered mental status ENMT: Mouth: + dry oral mucous membranes Respiratory: Auscultation: + crackles (both bases) Cardiovascular: Rate/Rhythm: + tachycardic and + irregularly irregular Heart Sounds: normal S1 and normal S2; no murmur Vessels: + JVD, posterior tibial pulses present and dorsalis pedis pulses present Extremities: + edema (<1+ b/l ) Gastrointestinal (Abdomen): normal bowel sounds, soft, nontender, no hepatosplenomegaly Psychiatric: A+Ox3, euthymic affect Results & Data ([facility]) Vital Signs (Past 12 Hours) Vital Signs Temp Pulse Resp BP Pulse Ox 06/02/19 15:46 36.7 C 90 18 140/80 92 06/02/19 11:57 36.8 C 85 18 128/79 90 06/02/19 07:01 36.6 C 110 H 20 138/85 94 06/02/19 05:38 139/79 Laboratory Results Laboratory Results - last 24 hr 06/02/19 06/02/19 06/02/19 07:29 07:29 07:29 WBC 11.08 H RBC 4.14 L Hgb 13.2 Hct 40.5 MCV 97.8 MCH 31.9 MCHC 32.6 RDW Std Deviation 49.6 H RDW Coeff of [place]enza 14.0 Plt Count 252 MPV 9.4 Immature Gran % (Auto) 0.3 Neut % (Auto) 70.2 Lymph % (Auto) 20.0 [place] % (Auto) 7.6 Eos % (Auto) 1.7 Baso % (Auto) 0.2 Immature Gran # (Auto) 0.03 H Neut # (Auto) 7.78 H Lymph # (Auto) 2.22 [place] # (Auto) 0.84 H Eos # (Auto) 0.19 Baso # (Auto) 0.02 APTT PTT Ratio Sodium 139 Potassium 4.0 D Chloride 109 H Carbon Dioxide 24 Anion Gap 6.0 BUN 22 H Creatinine 1.04 Est Cr Clr Drug Dosing 43.9 Est GFR ( Amer) 57.9 Est GFR (Non-Af Amer) 50.0 BUN/Creatinine Ratio 20.9 H Glucose 120 H POC Glucose Estimat Average Glucose 137 Hemoglobin A1c 6.4 H Calcium 8.8 06/02/19 06/02/19 06/02/19 07:29 07:55 11:21 WBC RBC Hgb Hct MCV MCH MCHC RDW Std Deviation RDW Coeff of Carmenza Plt Count MPV Immature Gran % (Auto) Neut % (Auto) Lymph % (Auto) [place] % (Auto) Eos % (Auto) Baso % (Auto) Immature Gran # (Auto) Neut # (Auto) Lymph # (Auto) [place] # (Auto) Eos # (Auto) Baso # (Auto) APTT 35.0 H PTT Ratio 1.3 Sodium Potassium Chloride Carbon Dioxide Anion Gap BUN Creatinine Est Cr Clr Drug Dosing Est GFR ( Amer) Est GFR (Non-Af Amer) BUN/Creatinine Ratio Glucose POC Glucose 135 H 125 H Estimat Average Glucose Hemoglobin A1c Calcium 06/02/19 06/02/19 06/02/19 14:23 16:01 20:23 WBC RBC Hgb Hct MCV MCH MCHC RDW Std Deviation RDW Coeff of Carmenza Plt Count MPV Immature Gran % (Auto) Neut % (Auto) Lymph % (Auto) [place] % (Auto) Eos % (Auto) Baso % (Auto) Immature Gran # (Auto) Neut # (Auto) Lymph # (Auto) [place] # (Auto) Eos # (Auto) Baso # (Auto) APTT 81.9 H* PTT Ratio 3.0 Sodium Potassium Chloride Carbon Dioxide Anion Gap BUN Creatinine Est Cr Clr Drug Dosing Est GFR ( Amer) Est GFR (Non-Af Amer) BUN/Creatinine Ratio Glucose POC Glucose 121 H 128 H Estimat Average Glucose Hemoglobin A1c Calcium PG Care Time/CCT Total # of Minutes Spent Total Time Spent with Patient: Total time spent is greater than 50% in coordination of care (as documented) at patient's floor/unit and/or counseling patient: Coding Level of Care Code 37045 Subseq Hosp Care Lvl 3 Diagnoses Rapid atrial fibrillation I48.91 Acute diastolic CHF (congestive heart failure) I50.31 Diabetes type 2, controlled E11.9 CKD (chronic kidney disease), stage III N18.3 Fibromyalgia M79.7 Hypertension I10 Abnormal chest x-ray R93.89 DVT prophylaxis Z29.9
[2019-06-02] MEDS: dilTIAZem HCl 60 MG TAB PO SCH ×2 (17:26→20:54)
--- NOTE | 2019-06-02 18:26 | Electrocardiogram Report ---
Test Reason : Blood Pressure : / mmHG Vent. Rate : 162 BPM Atrial Rate : 174 BPM P-R Int : 000 ms QRS Dur : 090 ms QT Int : 290 ms P-R-T Axes : 000 -53 148 degrees QTc Int : 476 ms Atrial fibrillation with rapid ventricular response Left axis deviation Voltage criteria for left ventricular hypertrophy Marked ST abnormality, possible lateral subendocardial injury Abnormal ECG When compared with ECG of 28-JAN-2017 19:46, Atrial fibrillation has replaced Sinus rhythm Vent. rate has increased BY 97 BPM T wave inversion less evident in Anterolateral leads Confirmed by Hi Russell ([id number]) on 06/02/2019 6:26:40 PM Referred By: REFERRED SELF Confirmed By:Dutch Russell
[2019-06-02] MEDS: GABAPENTIN 100 MG CAP PO SCH (20:55)
[2019-06-02] MEDS: APIXABAN 5 MG TABLET PO SCH (20:59)
[2019-06-03] MEDS: cefTRIAXone SODIUM 2,000 MG in DEXTROSE 5% 50 ML IV SCH (01:28)
[2019-06-03] MEDS: dilTIAZem HCl 60 MG TAB PO SCH ×4 (07:03→21:03)
[2019-06-03] MEDS ORDERED: Nursing to Pharmacy Communication ONE (07:06)
[2019-06-03 07:11] LABS: Basophils # (auto) 0.01 K/uL (0-0.2); Basophils % (auto) 0.1 %; Eosinophils # (auto) 0.23 K/uL (0-0.5); Eosinophils % (auto) 2.7 %; Hematocrit (blood only) 39.2 % (37-47); Hemoglobin 13.1 g/dL (12.0-16.0); Immature Granulocytes # (auto) 0.03 K/uL (0.00-0.02); Immature Granulocytes % (auto) 0.4 %; Mean Corpuscular Hemoglobin 32.3 pg (25-34); Mean Corpuscular Hgb Conc 33.4 g/dL (32-36); Mean Corpuscular Volume 96.6 fL (80-100); Mean Platelet Volume 9.6 fL (7.4-10.4); Monocytes # (auto) 0.66 K/uL (0.11-0.59); Monocytes % (auto) 7.9 %; Neutrophils # (auto) 5.36 K/uL (1.4-6.5); Neutrophils % (auto) 63.9 %; Platelet Count 243 K/uL (130-400); RDW Coefficient of Variation 13.8 % (11.5-14.5); RDW Standard Deviation 48.4 fL (36.4-46.3); Red Blood Count 4.06 M/uL (4.2-5.4); White Blood Count 8.39 K/uL (4.8-10.8)
[2019-06-03 07:34] LABS: Calcium 9.1 mg/dl (8.5-10.1); Creatinine Clr Calc Pharmacy 40.5 ml/min; Est GFR (African American) 54.1; Est GFR (Non-African American) 46.7; Potassium 3.7 mmol/L (3.5-5.1)
[2019-06-03] MEDS: carvediloL 25 MG TAB PO SCH ×2 (08:05→21:02)
[2019-06-03] MEDS: SPIRONOLACTONE 25 MG TAB PO SCH (08:05)
[2019-06-03] MEDS: DOXYCYCLINE HYCLATE 100 MG CAP PO SCH (08:05)
[2019-06-03] MEDS: ATORVASTATIN 20 MG TAB PO SCH (08:05)
[2019-06-03] MEDS: ASPIRIN 81 MG ECTAB PO SCH (08:06)
[2019-06-03] MEDS: CALCITRIOL 0.25 MCG CAPSULE PO SCH (08:06)
[2019-06-03] MEDS: CLOPIDOGREL BISULFATE 75 MG TAB PO SCH (08:06)
[2019-06-03] MEDS: APIXABAN 5 MG TABLET PO SCH ×2 (08:06→21:01)
[2019-06-03] MEDS: INSULIN ASPART 100 UNITS/ML 3 ML PEN SC SCH ×4 (08:07→21:10)
[2019-06-03] MEDS ORDERED: FUROSEMIDE 20 MG TAB PO ONE (16:15)
[2019-06-03] MEDS: GABAPENTIN 100 MG CAP PO SCH (21:02)
--- NOTE | 2019-06-03 22:25 | Hospitalist Progress Note ---
Date of Service June 03, 2019 Assessment & Plan (1) Rapid atrial fibrillation: newly found/new-onset. rates very high at presentation. did improve w/ cardizem infusion. transitioned to PO cardizem 30 q6h, then titrated to 60mg q6h last night. will need cardizem CD before d/c remains on coreg 25 BID as previous. rates have improved with above measures. started eliquis 5mg BID evening of 06/02. TSH normal ruling out hyperthyroidism. if rates prove difficult to control could consider changing coreg to metoprolol for better beta selectivity. (2) Acute diastolic CHF (congestive heart failure): likely 2nd to uncontrolled a.fib. LV function preserved on echo. IMPROVED volume status today - copious diuresis yesterday to single dose IV lasix. will give lasix again today but PO. recheck bmp/mag am. reassess volume status am. (3) Diabetes type 2, controlled: a1c <6.5% novolog w/ meals (4) CKD (chronic kidney disease), stage III: baseline CrCl <60 BMP remains stable (5) Fibromyalgia: cont home meds no issues (6) Hypertension: controlled (7) Abnormal chest x-ray: some ?pneumonia at presentation and thus community-aquired pneumonia abx initiated at time of admission. her pulmonary symptoms and chest x-ray findings, I believe, are probably all 2nd to pulmonary edema rather than infection. she is eating well, no fevers, etc will stop antibiotics (8) Dizziness: check orthostatics (9) DVT prophylaxis: eliquis BID PT eval requested progressing Admission and Anticipated Discharge Date Admission Date: June 01, 2019 Subjective patient with complaints of "thumping" - a sound she hears near the back of her head. present for many years. denies actual tinnitus. she also c/o dizziness when she stands or walks - also a chronic issue. HR with walking today - max was ~115 BPM. tele overnight - most rates at rest 90s. TRINIDAD is improved. Review of Systems Constitutional: + body aches (chronic); no fever Respiratory: + cough (scant ); no dyspnea on exertion Cardiovascular: no dyspnea at rest, no orthopnea, no paroxysmal nocturnal dyspnea and no edema Gastrointestinal: no abdominal pain Physical Exam Constitutional: well developed and well nourished; no acute distress and no altered mental status ENMT: Mouth: + dry oral mucous membranes Respiratory: Auscultation: + crackles (scant - bases - much improved ) Cardiovascular: Rate/Rhythm: regular rate and + irregularly irregular Heart Sounds: normal S1 and normal S2; no murmur Vessels: + JVD (much improved today ), posterior tibial pulses present and dorsalis pedis pulses present Extremities: no edema Gastrointestinal (Abdomen): normal bowel sounds, soft, nontender, no hepatosplenomegaly Psychiatric: A+Ox3, euthymic affect Results & Data ([facility]) Vital Signs (Past 12 Hours) Vital Signs Temp Pulse Pulse Resp BP BP Pulse Ox 06/03/19 21:00 112 H 150/80 H 06/03/19 19:41 36.6 C 92 H 20 142/83 H 93 06/03/19 15:14 36.5 C 81 18 145/79 H 91/63 L 91 06/03/19 12:04 36.3 C L 57 L 18 133/85 93 Laboratory Results Laboratory Results - last 24 hr 06/03/19 06/03/19 06/03/19 06:20 06:20 06:20 WBC 8.39 RBC 4.06 L Hgb 13.1 Hct 39.2 MCV 96.6 MCH 32.3 MCHC 33.4 RDW Std Deviation 48.4 H RDW Coeff of Carmenza 13.8 Plt Count 243 MPV 9.6 Immature Gran % (Auto) 0.4 Neut % (Auto) 63.9 Lymph % (Auto) 25.0 [place] % (Auto) 7.9 Eos % (Auto) 2.7 Baso % (Auto) 0.1 Immature Gran # (Auto) 0.03 H Neut # (Auto) 5.36 Lymph # (Auto) 2.10 [place] # (Auto) 0.66 H Eos # (Auto) 0.23 Baso # (Auto) 0.01 Sodium 138 Potassium 3.7 Chloride 106 Carbon Dioxide 25 Anion Gap 8.0 BUN 23 H Creatinine 1.10 Est Cr Clr Drug Dosing 40.5 Est GFR ( Amer) 54.1 Est GFR (Non-Af Amer) 46.7 BUN/Creatinine Ratio 21.0 H Glucose 110 H POC Glucose Calcium 9.1 TSH 1.630 06/03/19 06/03/19 06/03/19 07:24 11:35 16:28 WBC RBC Hgb Hct MCV MCH MCHC RDW Std Deviation RDW Coeff of Carmenza Plt Count MPV Immature Gran % (Auto) Neut % (Auto) Lymph % (Auto) [place] % (Auto) Eos % (Auto) Baso % (Auto) Immature Gran # (Auto) Neut # (Auto) Lymph # (Auto) [place] # (Auto) Eos # (Auto) Baso # (Auto) Sodium Potassium Chloride Carbon Dioxide Anion Gap BUN Creatinine Est Cr Clr Drug Dosing Est GFR ( Amer) Est GFR (Non-Af Amer) BUN/Creatinine Ratio Glucose POC Glucose 130 H 122 H 106 H Calcium TSH 06/03/19 20:36 WBC RBC Hgb Hct MCV MCH MCHC RDW Std Deviation RDW Coeff of Carmenza Plt Count MPV Immature Gran % (Auto) Neut % (Auto) Lymph % (Auto) [place] % (Auto) Eos % (Auto) Baso % (Auto) Immature Gran # (Auto) Neut # (Auto) Lymph # (Auto) [place] # (Auto) Eos # (Auto) Baso # (Auto) Sodium Potassium Chloride Carbon Dioxide Anion Gap BUN Creatinine Est Cr Clr Drug Dosing Est GFR ( Amer) Est GFR (Non-Af Amer) BUN/Creatinine Ratio Glucose POC Glucose 131 H Calcium TSH PG Care Time/CCT Total # of Minutes Spent Total Time Spent with Patient: Total time spent is greater than 50% in coordination of care (as documented) at patient's floor/unit and/or counseling patient: Coding Level of Care Code 59340 Subseq Hosp Care Lvl 2 Diagnoses Rapid atrial fibrillation I48.91 Acute diastolic CHF (congestive heart failure) I50.31 Diabetes type 2, controlled E11.9 CKD (chronic kidney disease), stage III N18.3 Fibromyalgia M79.7 Hypertension I10 Abnormal chest x-ray R93.89 Dizziness R42 DVT prophylaxis Z29.9
--- NOTE | 2019-06-03 23:38 | Billing Data ---
Date of Service June 03, 2019 Coding Level of Care Code 56790 Initial Inpt Care Lvl 3
[2019-06-04 07:02] LABS: Basophils # (auto) 0.02 K/uL (0-0.2); Basophils % (auto) 0.3 %; Eosinophils # (auto) 0.23 K/uL (0-0.5); Eosinophils % (auto) 3.1 %; Hematocrit (blood only) 40.6 % (37-47); Hemoglobin 13.6 g/dL (12.0-16.0); Immature Granulocytes # (auto) 0.01 K/uL (0.00-0.02); Immature Granulocytes % (auto) 0.1 %; Lymphocytes # (auto) 1.85 K/uL (1.2-3.4); Lymphocytes % (auto) 25.2 %; Mean Corpuscular Hemoglobin 31.9 pg (25-34); Mean Corpuscular Hgb Conc 33.5 g/dL (32-36); Mean Corpuscular Volume 95.3 fL (80-100); Mean Platelet Volume 9.4 fL (7.4-10.4); Monocytes # (auto) 0.76 K/uL (0.11-0.59); Monocytes % (auto) 10.4 %; Neutrophils # (auto) 4.46 K/uL (1.4-6.5); Neutrophils % (auto) 60.9 %; Platelet Count 257 K/uL (130-400); RDW Coefficient of Variation 13.5 % (11.5-14.5); RDW Standard Deviation 46.4 fL (36.4-46.3); Red Blood Count 4.26 M/uL (4.2-5.4); White Blood Count 7.33 K/uL (4.8-10.8)
[2019-06-04 07:50] LABS: BUN Creatinine Ratio 16.6 (10-20); Creatinine Clr Calc Pharmacy 39.8 ml/min; Est GFR (Non-African American) 45.7; Potassium 3.6 mmol/L (3.5-5.1)
[2019-06-04 07:51] LABS: Calcium 9.4 mg/dl (8.5-10.1); Magnesium 1.8 mg/dl (1.8-2.4)
[2019-06-04] MEDS: CALCITRIOL 0.25 MCG CAPSULE PO SCH (08:46)
[2019-06-04] MEDS: CLOPIDOGREL BISULFATE 75 MG TAB PO SCH (08:46)
[2019-06-04] MEDS: ASPIRIN 81 MG ECTAB PO SCH (08:46)
[2019-06-04] MEDS: APIXABAN 5 MG TABLET PO SCH ×2 (08:46→20:20)
[2019-06-04] MEDS: dilTIAZem HCl 60 MG TAB PO SCH ×4 (08:46→20:21)
[2019-06-04] MEDS: carvediloL 25 MG TAB PO SCH ×2 (08:46→20:21)
[2019-06-04] MEDS: INSULIN ASPART 100 UNITS/ML 3 ML PEN SC SCH ×4 (08:46→20:29)
[2019-06-04] MEDS: ATORVASTATIN 20 MG TAB PO SCH (08:46)
[2019-06-04] MEDS: SPIRONOLACTONE 25 MG TAB PO SCH (08:46)
[2019-06-04] MEDS: GABAPENTIN 100 MG CAP PO SCH (20:21)
--- NOTE | 2019-06-04 22:30 | Hospitalist Progress Note ---
Date of Service June 04, 2019 Assessment & Plan (1) Rapid atrial fibrillation: newly found/new-onset. rates very high at presentation. did improve w/ cardizem infusion. transitioned to PO cardizem 30 q6h, then titrated to 60mg q6h last night. rates at rest largely <100, occasionally low 100s. highest HR again today w/ walking was <120. will d/c short-acting cardizem; convert to cardizem CD 240mg daily in am tomorrow. remains on coreg 25 BID as previous. if rate control proves difficult with above 2 meds could exchange metoprolol for coreg but will defer for now. started eliquis 5mg BID evening of 06/02 for anticoagulation. it just came to my attention today that patient has had frequent falls at home. after finding this out I looked at old records - she has had previous visits to the ER for falls, syncope, head trauma, etc. although falls has been determined NOT to be absolute contraindication to anticoagulation it still does give me concern in her case. proceed forward cautiously w/ eliquis for now. TSH normal ruling out hyperthyroidism contributing to a.fib. (2) Acute diastolic CHF (congestive heart failure): likely 2nd to uncontrolled a.fib. LV function preserved on echo. volume status appears euvolemic today. defer on additional lasix for now. cont BB. (3) Diabetes type 2, controlled: a1c <6.5% novolog w/ meals (4) CKD (chronic kidney disease), stage III: baseline CrCl <60 BMP remains stable today (5) Fibromyalgia: cont home meds no issues patient c/o diffuse weakness and fatigue - check sed rate, CPK, and B12 in am (6) Hypertension: controlled (7) Abnormal chest x-ray: some ?pneumonia at presentation and thus community-aquired pneumonia abx initiated at time of admission. her pulmonary symptoms and chest x-ray findings, I believe, were probably all 2nd to pulmonary edema rather than infection. she is eating well, no fevers, etc antibiotics have been stopped (8) Dizziness: chronic issue likely contributes to falls check head CT if any worrisome findings then MRI brain given the newly found a.fib this would also be another reason MRI brain may be helpful as subacute embolic strokes would be in differential (9) Falls frequently: start w/ head CT check b12 level (10) DVT prophylaxis: eliquis BID patient with considerable fatigue, lives alone, has frequent falls, etc I spoke to her about considering rehab daughters on board w/ such on Wednesday will have social work assist with this (11) Antiplatelet or antithrombotic long-term use: patient was on both asa/plavix at time of admission I searched through he records and could not ascertain why she is on both meds no h/o CAD no h/o TIA or stroke based on my research she is now on eliquis will hold plavix but cont asa 81mg for now Admission and Anticipated Discharge Date Admission Date: June 01, 2019 Subjective patient c/o weakness - generalized. her TRINIDAD is improved however. no orthopnea or PND. again just feels tired. 2 daughters at bedside today. they report their mother has had several falls of late (in the last few weeks). one of the falls led to mild head injury. patient denies syncope - she states her legs "give out" and she gets weak. Review of Systems Constitutional: no fever and no chills Respiratory: no cough, no dyspnea and no dyspnea on exertion Cardiovascular: no chest pain, no orthopnea, no paroxysmal nocturnal dyspnea and no edema Gastrointestinal: no abdominal pain, no nausea and no vomiting Physical Exam Constitutional: well developed and well nourished; no acute distress and no altered mental status ENMT: Mouth: + dry oral mucous membranes Respiratory: normal respiratory effort, lungs clear to auscultation no respiratory distress Auscultation: no crackles and no wheezes Cardiovascular: Rate/Rhythm: regular rate and + irregularly irregular Heart Sounds: normal S1 and normal S2; no murmur Vessels: + JVD (minimal today ), posterior tibial pulses present and dorsalis pedis pulses present Extremities: no edema Gastrointestinal (Abdomen): normal bowel sounds, soft, nontender, no hepatosplenomegaly Musculoskeletal: Extremities: strength 5/5 throughout (no proximal muscle weakness ) Psychiatric: A+Ox3, euthymic affect Results & Data ([facility]) Vital Signs (Past 12 Hours) Vital Signs Temp Pulse Pulse Resp BP BP Pulse Ox 06/04/19 20:30 87 06/04/19 19:10 36.5 C 87 18 147/77 H 95 06/04/19 15:16 36.6 C 72 18 180/75 H 85/61 L 93 06/04/19 12:09 36.6 C 86 19 128/76 93 Laboratory Results Laboratory Results - last 24 hr 06/04/19 06/04/19 06/04/19 06:47 06:47 07:24 WBC 7.33 RBC 4.26 Hgb 13.6 Hct 40.6 MCV 95.3 MCH 31.9 MCHC 33.5 RDW Std Deviation 46.4 H RDW Coeff of Carmenza 13.5 Plt Count 257 MPV 9.4 Immature Gran % (Auto) 0.1 Neut % (Auto) 60.9 Lymph % (Auto) 25.2 [place] % (Auto) 10.4 Eos % (Auto) 3.1 Baso % (Auto) 0.3 Immature Gran # (Auto) 0.01 Neut # (Auto) 4.46 Lymph # (Auto) 1.85 [place] # (Auto) 0.76 H Eos # (Auto) 0.23 Baso # (Auto) 0.02 Sodium 138 Potassium 3.6 Chloride 106 Carbon Dioxide 27 Anion Gap 5.0 BUN 19 H Creatinine 1.12 Est Cr Clr Drug Dosing 39.8 Est GFR ( Amer) 53.0 Est GFR (Non-Af Amer) 45.7 BUN/Creatinine Ratio 16.6 Glucose 116 H POC Glucose 126 H Calcium 9.4 Magnesium 1.8 06/04/19 06/04/19 06/04/19 11:35 16:06 20:25 WBC RBC Hgb Hct MCV MCH MCHC RDW Std Deviation RDW Coeff of Carmenza Plt Count MPV Immature Gran % (Auto) Neut % (Auto) Lymph % (Auto) [place] % (Auto) Eos % (Auto) Baso % (Auto) Immature Gran # (Auto) Neut # (Auto) Lymph # (Auto) [place] # (Auto) Eos # (Auto) Baso # (Auto) Sodium Potassium Chloride Carbon Dioxide Anion Gap BUN Creatinine Est Cr Clr Drug Dosing Est GFR ( Amer) Est GFR (Non-Af Amer) BUN/Creatinine Ratio Glucose POC Glucose 134 H 96 123 H Calcium Magnesium PG Care Time/CCT Total # of Minutes Spent Total Time Spent with Patient: Total time spent is greater than 50% in coordination of care (as documented) at patient's floor/unit and/or counseling patient: Coding Level of Care Code 08305 Subseq Hosp Care Lvl 3 Diagnoses Rapid atrial fibrillation I48.91 Acute diastolic CHF (congestive heart failure) I50.31 Diabetes type 2, controlled E11.9 CKD (chronic kidney disease), stage III N18.3 Fibromyalgia M79.7 Hypertension I10 Abnormal chest x-ray R93.89 Dizziness R42 Falls frequently R29.6 DVT prophylaxis Z29.9 Antiplatelet or antithrombotic long-term use Z79.02
[2019-06-05 07:27] LABS: BUN Creatinine Ratio 18.1 (10-20); Calcium 9.6 mg/dl (8.5-10.1); Creatinine Clr Calc Pharmacy 37.9 ml/min; Est GFR (African American) 50.8; Est GFR (Non-African American) 43.8; Potassium 4.2 mmol/L (3.5-5.1)
--- NOTE | 2019-06-05 08:04 | CT Scan Report ---
CT head/brain wo con CLINICAL HISTORY: 83 years-old Female with recent falls w/ head injury. Acute head injury with recen t fall TECHNIQUE: Multiple axial CT images of the head were obtained without contrast. A dose lowering tech nique was utilized adhering to the principles of ALARA. CT DOSE: 537.48 mGy.cm COMPARISON: Head CT 08/19/2017 FINDINGS: No acute intracranial hemorrhage, midline shift, intracranial mass, hydrocephalus, territorial ischem ia or abnormal extra-axial collection. Age-related involutional changes. Patchy white matter hypodens ities suggest chronic microvascular ischemic disease. Cerebral vascular calcifications also noted. Unchanged 9 mm lucent focus of the left calvarium at the apex, image 26 series 3. No acute calvarial fracture. The paranasal sinuses, mastoid air cells, and middle ear cavities are clear. IMPRESSION: No acute intracranial abnormality or calvarial fracture. ACT 112: Negative or not required by law. The above report was generated using voice recognition software. It may contain grammatical, syntax o r spelling errors. Electronically signed by: Oracio Valle M.D. 06/05/2019 8:03 AM
[2019-06-05] MEDS: ASPIRIN 81 MG ECTAB PO SCH (08:05)
[2019-06-05] MEDS: APIXABAN 5 MG TABLET PO SCH ×2 (08:05→20:14)
[2019-06-05] MEDS: ATORVASTATIN 20 MG TAB PO SCH (08:05)
[2019-06-05] MEDS: SPIRONOLACTONE 25 MG TAB PO SCH (08:06)
[2019-06-05] MEDS: CALCITRIOL 0.25 MCG CAPSULE PO SCH (08:06)
[2019-06-05] MEDS: INSULIN ASPART 100 UNITS/ML 3 ML PEN SC SCH ×4 (08:08→20:14)
[2019-06-05] MEDS: carvediloL 25 MG TAB PO SCH ×2 (08:08→20:14)
[2019-06-05] MEDS ORDERED: dilTIAZem HCL 240 MG CAPCR PO SCH (09:00)
--- NOTE | 2019-06-05 11:45 | Cardiology Progress Note ---
Date of Service June 05, 2019 Assessment & Plan (1) Rapid atrial fibrillation: She continues to have elevated heart rates at times. She has few symptoms. She was started on anticoagulation. There appears to be some discrepancy between heart rates recorded in her chart and 0 seen on telemetry. I think if she continues to have elevated heart rates week and maximize her dose of diltiazem. She could take another dose of 60 milligrams at some point this afternoon. This is not optimal in controlling her heart rates digoxin could be added. Admission and Anticipated Discharge Date Admission Date: June 01, 2019 Subjective This morning the patient claims he feeling somewhat better. She continues to have an element of fatigue and mild dyspnea. She is not aware of any palpitations. No chest pains. Review of Systems Review of Systems: Per HPI Physical Exam Physical Exam: Constitutional: Alert, oriented, in no acute distress HEENT: Head is atraumatic and normocephalic. EOMs intact. Sclera non-icteric. Face is symmetric. No perioral cyanosis. Mucous membranes moist Neck: Supple, no JVD Pulmonary: Normal respiratory effort, bibasilar crackles Cardiac: Irregularly irregular, normal S1 and S2, no gallops, no rubs, no murmurs Extremities: No edema. No clubbing or cyanosis. Pulses 2+ and symmetric Skin: Normal skin color, turgor, and pigmentation. No rash or skin lesions Neurological: Oriented to person, place, and time Results & Data ([facility]) Vital Signs (Past 12 Hours) Vital Signs Temp Pulse Pulse Resp BP Pulse Ox 06/05/19 04:22 36.5 C 67 22 146/82 H 96 06/05/19 00:00 80 06/04/19 23:52 36.5 C 76 20 108/74 93 Laboratory Results Abnormal Lab Results 06/04/19 06/04/19 06/05/19 16:06 20:25 06:30 ESR 67 H Sodium Potassium Chloride Carbon Dioxide Anion Gap BUN Creatinine Est Cr Clr Drug Dosing Est GFR ( Amer) Est GFR (Non-Af Amer) BUN/Creatinine Ratio Glucose POC Glucose 96 123 H Calcium Total Creatine Kinase Vitamin B12 06/05/19 06/05/19 06/05/19 06:30 06:30 07:17 ESR Sodium 138 Potassium 4.2 D Chloride 107 Carbon Dioxide 28 Anion Gap 3.0 BUN 21 H Creatinine 1.16 Est Cr Clr Drug Dosing 37.9 Est GFR ( Amer) 50.8 Est GFR (Non-Af Amer) 43.8 BUN/Creatinine Ratio 18.1 Glucose 128 H POC Glucose 130 H Calcium 9.6 Total Creatine Kinase 49 Vitamin B12 697 06/05/19 11:29 ESR Sodium Potassium Chloride Carbon Dioxide Anion Gap BUN Creatinine Est Cr Clr Drug Dosing Est GFR ( Amer) Est GFR (Non-Af Amer) BUN/Creatinine Ratio Glucose POC Glucose 162 H Calcium Total Creatine Kinase Vitamin B12 Diagnostic Findings Performed this morning. This not demonstrate any acute abnormality. PG Care Time/CCT Total # of Minutes Spent Total Time Spent with Patient: Total time spent is greater than 50% in coordination of care (as documented) at patient's floor/unit and/or counseling patient: Coding Level of Care Code 45717 Subseq Hosp Care Lvl 3 Diagnoses Rapid atrial fibrillation I48.91
--- NOTE | 2019-06-05 15:12 | Hospitalist Progress Note ---
Date of Service June 05, 2019 Assessment & Plan (1) Rapid atrial fibrillation: Newly found/new-onset TSH WNL RVR on admission, still remains significantly tachycardic 110-150s on telemetry Previously better with cardizem infusion Will continue on PCU while increasing diltiazem with labile BPs. Already taking carvedilol 25mg BID Discussed with Dr Russell, will add additional diltiazem in afternoon if she remains tachycardic after starting CD dosing today. Will defer possible initiation of digoxin to cardiology. Continue Eliquis 5mg BID started 06/02 for anticoagulation. History of falls not contraindication for anticoagulation (2) Acute diastolic CHF (congestive heart failure): Secondary to RVR therefore places extra emphasis on good HR control prior to discharge. Appears euvolemic at present. Diuresed earlier in admission with lasix. (3) Diabetes type 2, controlled: HbA1C 6.4 on recent labs in May Will d/c glipizide on discharge as more concerned if she is having hypoglycemic episodes. Stop carb coverage but continue BSG ACHS for correction factor novolog (4) CKD (chronic kidney disease), stage III: BMP remains stable today (5) Fibromyalgia: cont amitriptyline and gabapentin B12/CK WNL. ESR mildly elevated but in setting of a. fib. Would consider O/P repeat ESR +/- prednisone trial if felt PMR is possible. (6) Hypertension: controlled on diltiazem and carvedilol. Discontinued hydralazine (7) Abnormal chest x-ray: ?CAP on presentation and thus abx initiated at time of admission. Subsequently discontinued as pulmonary symptoms and chest x-ray likely secondary to pulmonary edema rather than infection. No procalcitonin taken. (8) Dizziness: chronic issue She notes falls due to legs giving way although also noted dizziness on walking 2 days prior (?related to lasix at that time) (9) Falls frequently: Pt reports due to intermittent leg weakness, R > L, but normal most of the time. This appears to be longstanding and as per PCP note better since reduction in amitriptyline. Multiple possible etiologies with multiple possible medications contributing including glipizide, statin, gabapentin, amitriptyline, venlafaxine use. Possible hypotension with spironolactone/hydralazine/carvedilol use. Possible a. fib RVR causing hypoperfusion. Given chronicity would recommend workup is done on outpatient basis but will get more extensive history from family tomorrow. CT with chronic microvascular disease only B12 WNL ESR 67 but in setting of a. fib with RVR I am not clear this is reflective of her baseline. She has a longstanding diagnosis of fibromyalgia and I suspect the diagnosis of PMR has been considered on multiple occasions. Chronicity of symptoms and generalized nature would heavily favor fibromyalgia diagnosis. Could consider steroid trial as outpatient however. Will need PT/OT prior to discharge to be set up with home PT as patient refuses rehab. Doing much better using a walker as per nursing staff. (10) Antiplatelet or antithrombotic long-term use: Presumably on dual antiplatelets due to renal artery stent placed in Nov 2016 no h/o CAD no h/o TIA or stroke No need for dual antiplatelets now on Eliquis but should continue on ASA. (11) DVT prophylaxis: eliquis BID PT/OT assessments. Pt refusing rehabilitation at this time Admission and Anticipated Discharge Date Admission Date: June 01, 2019 Anticipated date of discharge: 06/06/19 Subjective Patient feels ready to go home. No chest pain. Shortness of breath on exertion improved with diuresis. No orthopnea or PND. Ambulation stability improved with a walker rather than using a cane. Reports falls due to legs just giving way. Denies presyncopal/syncopal symptoms. No palpitations. Usually she reports having no leg weakness but suddenly they will just go without any pain. She does note a history of fibromyalgia but reports this is currently under control on her current medical regimen of ami triptyline and gabapentin. Review of Systems Review of Systems: All systems reviewed & are unremarkable except as noted in HPI & below Physical Exam Constitutional: well developed and well nourished; no acute distress and no altered mental status Eyes: PERRL, conjunctivae normal, anicteric sclerae ENMT: external ear and nose normal, oropharynx normal Mouth: + dry oral mucous membranes Neck: trachea midline, no thyromegaly Respiratory: normal respiratory effort, lungs clear to auscultation no respiratory distress Auscultation: no crackles and no wheezes Cardiovascular: Rate/Rhythm: + tachycardic and + irregularly irregular Heart Sounds: normal S1 and normal S2; no murmur Vessels: no JVD Extremities: no edema Gastrointestinal (Abdomen): normal bowel sounds, soft, nontender, no hepatosplenomegaly Musculoskeletal: no cyanosis or clubbing, extremities motor strength 5/5 (grossly normal) Extremities: strength 5/5 throughout (no proximal muscle weakness ) Skin: no rashes, warm and dry Neurologic: moves all extremities and awake; not confused Motor/Sensory: no tremor and no pronator drift Psychiatric: A+Ox3, euthymic affect Results & Data ([facility]) Vital Signs (Past 12 Hours) Vital Signs Temp Pulse Resp BP Pulse Ox 06/05/19 11:55 36.4 C L 97 H 18 120/74 96 06/05/19 04:22 36.5 C 67 22 146/82 H 96 PG Care Time/CCT Total # of Minutes Spent Total Time Spent with Patient: Total time spent is greater than 50% in coordination of care (as documented) at patient's floor/unit and/or counseling patient: Coding Level of Care Code 34726 Subseq Hosp Care Lvl 3 Diagnoses Rapid atrial fibrillation I48.91 Acute diastolic CHF (congestive heart failure) I50.31 Diabetes type 2, controlled E11.59 Diabetes mellitus complication detail: with other circulatory complications Diabetes mellitus complication status: with circulatory complication Diabetes mellitus watermelon inspector insulin use: without watermelon inspector use CKD (chronic kidney disease), stage III N18.3 Fibromyalgia M79.7 Hypertension I15.0 Hypertension type: renovascular hypertension Abnormal chest x-ray R93.89 Dizziness R42 Falls frequently R29.6 Antiplatelet or antithrombotic long-term use Z79.02 DVT prophylaxis Z29.9 (1) Diabetes type 2, controlled Diabetes mellitus complication detail: with other circulatory complications Diabetes mellitus complication status: with circulatory complication Diabetes mellitus shelter insulin use: without watermelon inspector use Qualified Code(s): E11.59 - Type 2 diabetes mellitus with other circulatory complications (2) Hypertension Hypertension type: renovascular hypertension Qualified Code(s): I15.0 - Renovascular hypertension
[2019-06-05] MEDS ORDERED: dilTIAZem HCl 60 MG TAB PO ONE (15:30)
[2019-06-05] MEDS ORDERED: dilTIAZem HCL 120 MG CAPCR PO ONE (16:30)
[2019-06-05] MEDS: GABAPENTIN 100 MG CAP PO SCH (20:13)
[2019-06-06 07:05] LABS: Hematocrit (blood only) 43.9 % (37-47); Mean Corpuscular Hemoglobin 32.5 pg (25-34); Mean Corpuscular Hgb Conc 34.2 g/dL (32-36); Mean Platelet Volume 9.4 fL (7.4-10.4); Platelet Count 303 K/uL (130-400); RDW Coefficient of Variation 13.6 % (11.5-14.5); RDW Standard Deviation 46.7 fL (36.4-46.3); Red Blood Count 4.62 M/uL (4.2-5.4); White Blood Count 7.84 K/uL (4.8-10.8)
[2019-06-06 07:37] LABS: BUN Creatinine Ratio 19.2 (10-20); Calcium 9.6 mg/dl (8.5-10.1); Creatinine Clr Calc Pharmacy 37.5 ml/min; Est GFR (African American) 50.3; Est GFR (Non-African American) 43.4; Potassium 4.1 mmol/L (3.5-5.1)
[2019-06-06] MEDS: APIXABAN 5 MG TABLET PO SCH ×2 (07:42→20:12)
[2019-06-06] MEDS: carvediloL 25 MG TAB PO SCH ×2 (07:42→20:12)
[2019-06-06] MEDS: SPIRONOLACTONE 25 MG TAB PO SCH (07:43)
[2019-06-06] MEDS: ATORVASTATIN 20 MG TAB PO SCH (07:43)
[2019-06-06] MEDS: CALCITRIOL 0.25 MCG CAPSULE PO SCH (07:43)
[2019-06-06] MEDS: ASPIRIN 81 MG ECTAB PO SCH (07:44)
[2019-06-06] MEDS: dilTIAZem HCL 180 MG CAPCR PO SCH (07:44)
[2019-06-06] MEDS: INSULIN ASPART 100 UNITS/ML 3 ML PEN SC SCH ×4 (07:45→20:38)
[2019-06-06] MEDS ORDERED: DIGOXIN 0.25 MG TAB PO ONE (08:18)
--- NOTE | 2019-06-06 10:45 | Cardiology Progress Note ---
Date of Service June 06, 2019 Assessment & Plan (1) Rapid atrial fibrillation: She continues to have elevated heart rates at times. She has few symptoms. She was started on anticoagulation. Curiously, her rate control appear to be better earlier in her admission. Digoxin was added today. We will monitor the response. Admission and Anticipated Discharge Date Admission Date: June 01, 2019 Anticipated date of discharge: 06/06/19 Subjective This morning patient claims to be feeling well. She continues to have an element of fatigue and generalized discomfort related to her fibromyalgia. However, she has not report any other specific complaints and is anxious for discharge. She has not report being ambulatory yesterday. Review of Systems Review of Systems: Per HPI Physical Exam Physical Exam: Constitutional: Alert, oriented, in no acute distress HEENT: Head is atraumatic and normocephalic. EOMs intact. Sclera non-icteric. Face is symmetric. No perioral cyanosis. Mucous membranes moist Neck: Supple, no JVD Pulmonary: Normal respiratory effort, bibasilar crackles Cardiac: Irregularly irregular, normal S1 and S2, no gallops, no rubs, no murmurs Extremities: No edema. No clubbing or cyanosis. Pulses 2+ and symmetric Skin: Normal skin color, turgor, and pigmentation. No rash or skin lesions Neurological: Oriented to person, place, and time Results & Data ([facility]) Vital Signs (Past 12 Hours) Vital Signs Temp Pulse Pulse Resp BP BP Pulse Ox 06/06/19 09:16 125 H 06/06/19 07:32 36.6 C 82 18 158/75 H 95 06/06/19 03:35 36.4 C L 110 H 18 153/85 H 96 06/06/19 00:00 102 H 06/05/19 23:43 36.4 C L 82 18 159/76 H 91 Laboratory Results Abnormal Lab Results 06/05/19 06/05/19 06/05/19 11:29 16:01 20:06 WBC RBC Hgb Hct MCV MCH MCHC RDW Std Deviation RDW Coeff of Carmenza Plt Count MPV Sodium Potassium Chloride Carbon Dioxide Anion Gap BUN Creatinine Est Cr Clr Drug Dosing Est GFR ( Amer) Est GFR (Non-Af Amer) BUN/Creatinine Ratio Glucose POC Glucose 162 H 95 134 H Calcium Triglycerides Cholesterol LDL Cholesterol, Calc VLDL Cholesterol, Calc HDL Cholesterol Cholesterol/HDL Ratio 06/06/19 06/06/19 06/06/19 06:42 06:42 07:41 WBC 7.84 RBC 4.62 Hgb 15.0 Hct 43.9 MCV 95.0 MCH 32.5 MCHC 34.2 RDW Std Deviation 46.7 H RDW Coeff of Carmenza 13.6 Plt Count 303 MPV 9.4 Sodium 138 Potassium 4.1 Chloride 106 Carbon Dioxide 25 Anion Gap 7.0 BUN 23 H Creatinine 1.17 Est Cr Clr Drug Dosing 37.5 Est GFR ( Amer) 50.3 Est GFR (Non-Af Amer) 43.4 BUN/Creatinine Ratio 19.2 Glucose 123 H POC Glucose 129 H Calcium 9.6 Triglycerides 88 Cholesterol 100 LDL Cholesterol, Calc 46 VLDL Cholesterol, Calc 18 HDL Cholesterol 36 Cholesterol/HDL Ratio 3 PG Care Time/CCT Total # of Minutes Spent Total Time Spent with Patient: Total time spent is greater than 50% in coordination of care (as documented) at patient's floor/unit and/or counseling patient: Coding Level of Care Code 80728 Subseq Hosp Care Lvl 2 Diagnoses Rapid atrial fibrillation I48.91
--- NOTE | 2019-06-06 15:53 | Hospitalist Progress Note ---
Date of Service June 06, 2019 Assessment & Plan (1) Rapid atrial fibrillation: Newly found/new-onset TSH WNL RVR on admission, still remained significantly tachycardic 110-150s on telemetry despite extra 120mg diltiazem CD given yesterday afternoon. Discussed with Dr Russell and digoxin started with loading dose of 250mcg this morning. Now having relatively significant pauses on telemetry of 2.5 seconds therefore will continue to observe on telemetry overnight and have Dr Russell review in the morning as I am concerned she is on two high dose AV blue blocking agents with labile blood pressures and now pauses with a history of falls. Continue carvedilol 25mg BID and diltiazem CD 360mg Continue Eliquis 5mg BID started 06/02 for anticoagulation. History of falls not contraindication for anticoagulation but discussed with patient need to come to ER if she hits her head on this medication. Patient lives alone at home and family concerned if something was to happen she might not be found however there is also the risk of this if she were to have a stroke which is the more likely scenario if not on anticoagulation. (2) Acute diastolic CHF (congestive heart failure): Remains euvolemic and suspect will stay this way as long as HR remains controlled. Secondary to RVR therefore places extra emphasis on good HR control prior to discharge. Appears euvolemic at present on 50mg spironolactone. Diuresed earlier in admission with lasix. (3) Diabetes type 2, controlled: HbA1C 6.4 on recent labs in May. Will d/c glipizide on discharge as more concerned if she is having hypoglycemic episodes. Can d/c BSG checks as has been normal throughout today. (4) CKD (chronic kidney disease), stage III: BMP stable. (5) Fibromyalgia: Unclear diagnosis as per her daughter ?self-diagnosed. Patient reports much improvement with gabapentin/amitriptyline. Daughter reports deterioration over the last month -> no change in her fibromyalgia medications since nephrology visit in March. Cont amitriptyline, gabapentin, venlafaxine. B12/CK WNL. ESR mildly elevated but in setting of a. fib. Would consider O/P repeat ESR +/- prednisone trial if felt PMR is possible. Statin possibly contributory but since she has been on this for many years will leave possible trial off med to her PCP. (6) Hypertension: controlled but labile on diltiazem, carvedilol, spironolactone (at lower dose). Discontinued hydralazine. (7) Abnormal chest x-ray: ?CAP on presentation and thus abx initiated at time of admission. Subsequently discontinued as pulmonary symptoms and chest x-ray likely secondary to pulmonary edema rather than infection. No procalcitonin taken. (8) Dizziness: chronic issue. Discussed with patient today. She feels more of a vertigo sensation after standing for long periods of time. This is separate to her leg weakness. (9) Falls frequently: Pt reports due to intermittent leg weakness, R > L, but normal most of the time. This appears to be longstanding and as per PCP note better since reduction in amitriptyline. Multiple possible etiologies with multiple possible medications contributing including glipizide, statin, gabapentin, amitriptyline, venlafaxine use. Possible hypotension with spironolactone/hydralazine/carvedilol use. Possible a. fib RVR causing hypoperfusion. No power deficit on exam. CT with chronic microvascular disease only. B12 WNL ESR 67 but in setting of a. fib with RVR I am not clear this is reflective of her baseline. See above PT/OT evals reviewed. Doing much better using a walker as per nursing staff. (10) Antiplatelet or antithrombotic long-term use: Presumably on dual antiplatelets due to renal artery stent placed in Nov 2016 no h/o CAD no h/o TIA or stroke No need for dual antiplatelets now on Eliquis but should continue on ASA. (11) DVT prophylaxis: eliquis BID PT/OT assessments. Pt refusing rehabilitation at this time Admission and Anticipated Discharge Date Admission Date: June 01, 2019 Continued admission due to pauses on telemetry, unclear if arrhythmia stable after starting digoxin Anticipated date of discharge: 06/07/19 Subjective Patient feels much more back to her baseline after heart rate slowed down with digoxin. No chest pain. Baseline SOBOE. No orthopnea or PND. Discussed patient with her permission with her daughter Gina. She reports patient has self diagnosed fibromyalgia and confirms she puts down a lot of her symptoms to this. Gina feels there was a big difference in the patient's falls with the decreased dose of amitriptyline. Review of Systems Review of Systems: All systems reviewed & are unremarkable except as noted in HPI & below Physical Exam Constitutional: well developed and well nourished; no acute distress and no altered mental status Eyes: + anicteric sclerae; normal pupil size ENMT: external ear and nose normal, oropharynx normal Neck: trachea midline, no thyromegaly Respiratory: normal respiratory effort, lungs clear to auscultation no respiratory distress Auscultation: no crackles and no wheezes Cardiovascular: Rate/Rhythm: + tachycardic and + irregularly irregular Heart Sounds: normal S1 and normal S2; no murmur Vessels: no JVD Extremities: + pedal edema (trace b/l equal) Gastrointestinal (Abdomen): normal bowel sounds, soft, nontender, no hepatosplenomegaly Musculoskeletal: no cyanosis or clubbing, extremities motor strength 5/5 Extremities: strength 5/5 throughout (no proximal muscle weakness ) Skin: no rashes, warm and dry Neurologic: moves all extremities and awake; no focal motor deficits (no power deficit in legs) and not confused Motor/Sensory: no tremor and no pronator drift Psychiatric: A+Ox3, euthymic affect Results & Data ([facility]) Vital Signs (Past 12 Hours) Vital Signs Temp Pulse Pulse Resp BP Pulse Ox 06/06/19 15:30 36.5 C 76 18 165/94 H 94 06/06/19 14:14 40 L 06/06/19 11:46 36.5 C 94 H 19 127/83 96 06/06/19 09:16 125 H 06/06/19 07:32 36.6 C 82 18 158/75 H 95 PG Care Time/CCT Total # of Minutes Spent Total Time Spent with Patient: Total time spent is greater than 50% in coordination of care (as documented) at patient's floor/unit and/or counseling patient: Coding Level of Care Code 51418 Subseq Hosp Care Lvl 2 Diagnoses Rapid atrial fibrillation I48.91 Acute diastolic CHF (congestive heart failure) I50.31 Diabetes type 2, controlled E11.59 Diabetes mellitus complication detail: with other circulatory complications Diabetes mellitus complication status: with circulatory complication Diabetes mellitus equipment operator intermodal yard insulin use: without retirement use CKD (chronic kidney disease), stage III N18.3 Fibromyalgia M79.7 Hypertension I15.0 Hypertension type: renovascular hypertension Abnormal chest x-ray R93.89 Dizziness R42 Falls frequently R29.6 Antiplatelet or antithrombotic long-term use Z79.02 DVT prophylaxis Z29.9 (1) Diabetes type 2, controlled Diabetes mellitus complication detail: with other circulatory complications Diabetes mellitus complication status: with circulatory complication Diabetes mellitus equipment operator intermodal yard insulin use: without equipment operator intermodal yard use Qualified Code(s): E11.59 - Type 2 diabetes mellitus with other circulatory complications (2) Hypertension Hypertension type: renovascular hypertension Qualified Code(s): I15.0 - Renovascular hypertension
[2019-06-06] MEDS ORDERED: DIGOXIN 0.125 MG TAB PO SCH (16:00)
[2019-06-06] MEDS: GABAPENTIN 100 MG CAP PO SCH (20:12)
[2019-06-07] MEDS: CALCITRIOL 0.25 MCG CAPSULE PO SCH (08:09)
[2019-06-07] MEDS: dilTIAZem HCL 180 MG CAPCR PO SCH (08:09)
[2019-06-07] MEDS: SPIRONOLACTONE 25 MG TAB PO SCH (08:09)
[2019-06-07] MEDS: carvediloL 25 MG TAB PO SCH (08:09)
[2019-06-07] MEDS: ASPIRIN 81 MG ECTAB PO SCH (08:09)
[2019-06-07] MEDS: ATORVASTATIN 20 MG TAB PO SCH (08:09)
[2019-06-07] MEDS: APIXABAN 5 MG TABLET PO SCH ×2 (08:10→20:42)
--- NOTE | 2019-06-07 18:06 | Cardiology Progress Note ---
Date of Service June 07, 2019 Assessment & Plan (1) Rapid atrial fibrillation: She continues to have elevated heart rates at times. She has few symptoms. I am not sure we'll get good control. I think we should at [facility] perform a DAVIDSON to make sure she has no JEREMIAS thrombus We can attempt cardioversion, but she may have had AF for some time and may not maintain sinus rhythm. However, we could try amiodarone at that point for a hybrid rate/rhythm control. Admission and Anticipated Discharge Date Admission Date: June 01, 2019 Anticipated date of discharge: 06/07/19 Subjective This morning she is feeling well. She is unaware that her heart rate is high. Some fatigue which is unchanged. Minimal dyspnea. Minimal dizziness. Review of Systems Review of Systems: per HPI Physical Exam Physical Exam: Constitutional: Alert, oriented, in no acute distress HEENT: Head is atraumatic and normocephalic. EOMs intact. Sclera non-icteric. Face is symmetric. No perioral cyanosis. Mucous membranes moist Neck: Supple, no JVD Pulmonary: Normal respiratory effort, clear Cardiac: Irregularly irregular, normal S1 and S2, no gallops, no rubs, no murmurs Extremities: No edema. No clubbing or cyanosis. Pulses 2+ and symmetric Skin: Normal skin color, turgor, and pigmentation. No rash or skin lesions Neurological: Oriented to person, place, and time Results & Data ([facility]) Vital Signs (Past 12 Hours) Vital Signs Temp Pulse Pulse Resp BP BP Pulse Ox 06/07/19 16:16 80 06/07/19 15:23 36.6 C 86 20 130/83 93 06/07/19 11:40 36.6 C 59 L 18 148/73 H 98 06/07/19 11:31 36.5 C 106 H 16 131/78 94 06/07/19 07:42 36.6 C 66 20 142/92 H 93 Laboratory Results Abnormal Lab Results 06/06/19 06/07/19 06/07/19 20:13 11:42 16:43 POC Glucose 137 H 168 H 110 H PG Care Time/CCT Total # of Minutes Spent Total Time Spent with Patient: Total time spent is greater than 50% in coordination of care (as documented) at patient's floor/unit and/or counseling patient: Coding Level of Care Code 16386 Subseq Hosp Care Lvl 3 Diagnoses Rapid atrial fibrillation I48.91
[2019-06-07] MEDS: GABAPENTIN 100 MG CAP PO SCH (20:42)
[2019-06-07] MEDS: carvediloL 12.5 MG TAB PO SCH (20:42)
--- NOTE | 2019-06-07 20:43 | Hospitalist Progress Note ---
Date of Service June 07, 2019 Assessment & Plan (1) Rapid atrial fibrillation: Newly found/new-onset TSH WNL RVR throughout admission leading to a degree of heart failure and sudden shortness of breath episodes which may be contributing towards her falls as an outpatient. Pulses recorded do not reflect true heart rate likely due to erratic nature of her a. fib usually in 110s but episodes up to 160s. Appreciate cardiology management, discussed with Dr Russell. Plan for DAVIDSON with cardioversion +/- amiodarone. NPO after midnight (carvedilol reduced by Dr Russell, likely to be bradycardic if she remains converted). Continue carvedilol 12.5mg BID, diltiazem CD 360mg, digoxin 125 mcg daily. Continue Eliquis 5mg BID started 06/02 for anticoagulation. (2) Acute diastolic CHF (congestive heart failure): Possibly getting slightly more hypervolemic again with increased leg swelling. Will likely need lasix prior to discharge but will defer until after cardioversion to see if she remains in a. fib. Appears euvolemic at present on 50mg spironolactone. Diuresed earlier in admission with lasix. (3) Diabetes type 2, controlled: HbA1C 6.4 on recent labs in May. Will d/c glipizide on discharge as more concerned if she is having hypoglycemic episodes. Stopped BSG checks as not requiring insulin on a diabetic diet. (4) CKD (chronic kidney disease), stage III: BMP stable. (5) Fibromyalgia: Unclear diagnosis as per her daughter ?self-diagnosed. Patient reports much improvement with gabapentin/amitriptyline. Daughter reports deterioration over the last month -> no change in her fibromyalgia medications since nephrology visit in March. Cont amitriptyline, gabapentin, venlafaxine. B12/CK WNL. ESR mildly elevated but in setting of a. fib. Would consider O/P repeat ESR +/- prednisone trial if felt PMR is possible. Statin possibly contributory but since she has been on this for many years will leave possible trial off med to her PCP. (6) Hypertension: controlled but labile on diltiazem, carvedilol, spironolactone (at lower dose). Discontinued hydralazine. (7) Abnormal chest x-ray: ?CAP on presentation and thus abx initiated at time of admission. Subsequently discontinued as pulmonary symptoms and chest x-ray likely secondary to pulmonary edema rather than infection. No procalcitonin taken. (8) Dizziness: chronic issue. Discussed with patient. She feels more of a vertigo sensation after standing for long periods of time. This is separate to her leg weakness. ?a. fib during these times (9) Falls frequently: Pt reports due to intermittent leg weakness, R > L, but normal most of the time. This appears to be longstanding and as per PCP note better since reduction in amitriptyline. Multiple possible etiologies with multiple possible medications contributing including glipizide, statin, gabapentin, amitriptyline, venlafaxine use. Possible hypotension with spironolactone/hydralazine/carvedilol use. Possible a. fib RVR causing hypoperfusion. No power deficit on exam. CT with chronic microvascular disease only. B12 WNL ESR 67 but in setting of a. fib with RVR I am not clear this is reflective of her baseline. 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 Doing much better using a walker as per nursing staff. (10) Antiplatelet or antithrombotic long-term use: Presumably on dual antiplatelets due to renal artery stent placed in Nov 2016 no h/o CAD no h/o TIA or stroke No need for dual antiplatelets now on Eliquis but should continue on ASA. (11) DVT prophylaxis: eliquis BID PT/OT assessments. Pt refusing rehabilitation at this time Admission and Anticipated Discharge Date Admission Date: June 01, 2019 Unknown discharge at this time as heart rate has been very difficult to control and high doses of AV blue blocking agents in addition to digoxin. Subjective Patient reports multiple episodes overnight with sudden shortness of breath. Feels near back to her baseline today however although she has not been moving around much. No chest pain with these episodes or diaphoresis. No orthopnea or PND. Review of Systems Review of Systems: All systems reviewed & are unremarkable except as noted in HPI & below Physical Exam Constitutional: well developed and well nourished; no acute distress and no altered mental status Eyes: + anicteric sclerae; normal pupil size ENMT: external ear and nose normal, oropharynx normal Neck: trachea midline, no thyromegaly Respiratory: normal respiratory effort, lungs clear to auscultation no respiratory distress Auscultation: no crackles and no wheezes Cardiovascular: Rate/Rhythm: + tachycardic and + irregularly irregular Heart Sounds: normal S1 and normal S2; no murmur Vessels: + JVD (mildly elevated) Extremities: + pedal edema (1+ b/l equal) Gastrointestinal (Abdomen): normal bowel sounds, soft, nontender, no hepatosplenomegaly Musculoskeletal: no cyanosis or clubbing, extremities motor strength 5/5 Skin: no rashes, warm and dry Neurologic: moves all extremities and awake; no focal motor deficits (no power deficit in legs on exam) and not confused Motor/Sensory: no tremor and no pronator drift Psychiatric: A+Ox3, euthymic affect Results & Data ([facility]) Vital Signs (Past 12 Hours) Vital Signs Temp Pulse Pulse Resp BP BP Pulse Ox 06/07/19 19:09 36.4 C L 84 18 135/80 93 06/07/19 16:16 80 06/07/19 15:23 36.6 C 86 20 130/83 93 06/07/19 11:40 36.6 C 59 L 18 148/73 H 98 06/07/19 11:31 36.5 C 106 H 16 131/78 94 PG Care Time/CCT Total # of Minutes Spent Total Time Spent with Patient: Total time spent is greater than 50% in coordination of care (as documented) at patient's floor/unit and/or counseling patient: Coding Level of Care Code 98110 Subseq Hosp Care Lvl 3 Diagnoses Rapid atrial fibrillation I48.91 Acute diastolic CHF (congestive heart failure) I50.31 Diabetes type 2, controlled E11.59 Diabetes mellitus custodial insulin use: without remote computer terminal operator use Diabetes mellitus complication status: with circulatory complication Diabetes mellitus complication detail: with other circulatory complications CKD (chronic kidney disease), stage III N18.3 Fibromyalgia M79.7 Hypertension I15.0 Hypertension type: renovascular hypertension Abnormal chest x-ray R93.89 Dizziness R42 Falls frequently R29.6 Antiplatelet or antithrombotic long-term use Z79.02 DVT prophylaxis Z29.9 (1) Diabetes type 2, controlled Diabetes mellitus remote computer terminal operator insulin use: without custodial use Diabetes mellitus complication status: with circulatory complication Diabetes mellitus complication detail: with other circulatory complications Qualified Code(s): E11.59 - Type 2 diabetes mellitus with other circulatory complications (2) Hypertension Hypertension type: renovascular hypertension Qualified Code(s): I15.0 - Renovascular hypertension
[2019-06-08 06:22] LABS: Hematocrit (blood only) 45.7 % (37-47); Hemoglobin 15.5 g/dL (12.0-16.0); Mean Corpuscular Hemoglobin 32.5 pg (25-34); Mean Corpuscular Hgb Conc 33.9 g/dL (32-36); Mean Corpuscular Volume 95.8 fL (80-100); Mean Platelet Volume 9.5 fL (7.4-10.4); Platelet Count 314 K/uL (130-400); RDW Coefficient of Variation 13.6 % (11.5-14.5); RDW Standard Deviation 47.5 fL (36.4-46.3); Red Blood Count 4.77 M/uL (4.2-5.4); White Blood Count 9.78 K/uL (4.8-10.8)
[2019-06-08 06:57] LABS: BUN Creatinine Ratio 19.5 (10-20); Calcium 9.8 mg/dl (8.5-10.1); Creatinine Clr Calc Pharmacy 29.2 ml/min; Est GFR (African American) 37.2; Est GFR (Non-African American) 32.1; Magnesium 2.2 mg/dl (1.8-2.4); Potassium 4.8 mmol/L (3.5-5.1)
--- NOTE | 2019-06-08 07:30 | Anesthesiology Consultation ---
Date of Service June 08, 2019 Assessment & Plan (1) Encounter for pre-operative examination: Chart Review Acceptable for cardioversion History Surgery Operation Date: 06/08/19 08:15 Proposed Procedures p Transesophageal Echo w/Anesthesia - Yifan Russell MD s Cardioversion Cattle Manager w/Anesthesia - Yifan Russell MD Height/Weight Height: 5 ft 3 in Weight: 81.4 kg Allergies Allergy/AdvReac Type Severity Reaction Status Date / Time duloxetine Allergy Severe Diarrhea Verified 03/06/19 14:53 SOLANGE Inhibitors Allergy Unknown Verified 03/06/19 14:52 alendronate sodium Allergy Unknown UNKNOWN Verified 03/06/19 14:52 ARB-Angiotensin Receptor Allergy Unknown Verified 03/06/19 14:52 Antagonist cisapride Allergy Unknown UNKNOWN Verified 03/06/19 14:52 diazepam Allergy Unknown UNKNOWN Verified 03/06/19 14:52 nabumetone Allergy Unknown UNKNOWN Verified 03/06/19 14:52 NSAIDS (Non-Steroidal Allergy Unknown Verified 03/06/19 14:52 Anti-Inflamma phenazopyridine Allergy Unknown UNKNOWN Verified 03/06/19 14:52 Sulfa (Sulfonamide Allergy Unknown UNKNOWN Unverified 03/06/19 14:52 Antibiotics) sulindac Allergy Unknown UNKNOWN Verified 03/06/19 14:52 Medications Home Medications Medication Instructions Recorded Confirmed Last Taken aspirin 81 mg tablet,delayed 81 mg PO QAM 12/11/18 06/01/19 06/01/19 release carvedilol 25 mg tablet 25 mg PO BID #180 tab 12/16/18 06/01/19 06/01/19 AM DOSE hydralazine 100 mg tablet 100 mg PO BID #180 tab 12/16/18 06/01/19 06/01/19 AM DOSE amitriptyline 50 mg tablet 50 mg PO HS #90 tab 12/22/18 06/01/19 05/31/19 atorvastatin [Lipitor] 20 mg PO QAM 06/01/19 06/01/19 06/01/19 calcitriol 0.25 mcg PO QAM 06/01/19 06/01/19 06/01/19 clopidogrel [Plavix] 75 mg PO QAM 06/01/19 06/01/19 06/01/19 gabapentin 100 mg PO HS 06/01/19 06/01/19 05/31/19 glipizide 2.5 mg PO QAM 06/01/19 06/01/19 06/01/19 spironolactone 100 mg PO QAM 06/01/19 06/01/19 06/01/19 venlafaxine 75 mg PO QPM 06/01/19 06/01/19 05/31/19 Active Medications Generic Name Dose Route Start Last Admin Trade Name Serena PRN Reason Stop Dose Admin Apixaban 5 mg 06/02/19 21:00 06/07/19 20:42 Eliquis PO 07/02/19 20:59 5 mg BID SAGAR Administration Aspirin 81 mg 06/02/19 09:00 06/07/19 08:09 Ecotrin Ectab PO 07/02/19 08:59 81 mg QAM SAGAR Administration Atorvastatin Calcium 20 mg 06/02/19 09:00 06/07/19 08:09 Lipitor PO 07/02/19 08:59 20 mg QAM SAGAR Administration Calcitriol 0.25 mcg 06/02/19 09:00 06/07/19 08:09 Rocaltrol PO 07/02/19 08:59 0.25 mcg QAM SAGAR Administration Carvedilol 12.5 mg 06/07/19 21:00 06/07/19 20:42 Coreg PO 07/07/19 20:59 12.5 mg BID SAGAR Administration Diltiazem HCl 360 mg 06/06/19 09:00 06/07/19 08:09 Cardizem Cd PO 07/06/19 08:59 360 mg QAM SAGAR Administration Gabapentin 100 mg 06/02/19 21:00 06/07/19 20:42 Neurontin PO 07/02/19 20:59 100 mg HS SAGAR Administration Spironolactone 50 mg 06/02/19 09:00 06/07/19 08:09 Aldactone PO 07/02/19 08:59 50 mg QAM SAGAR Administration Past Medical History Medical History (Updated 06/08/19 @ 07:50 by Ramon Wayne MD) Depression Diastolic CHF Dizziness Fibromyalgia Hyperlipidemia Hypertension Peripheral neuropathy Rapid atrial fibrillation (Acute) Stage 3 chronic kidney disease Type 2 diabetes mellitus Past Surgical History Surgical History (Updated 06/08/19 @ 07:28 by Ramon Wayne MD) History of stent insertion of renal artery Social History Smoking Status: Current every day smoker tobacco type: cigarettes Smoking cigarettes per day: 5-6 alcohol intake frequency: holidays/special occasions only Hx Substance Use: No Physical Exam Vital Signs Last Vital Signs Temp 36.3 C L 06/08/19 06:38 Pulse 89 06/08/19 06:38 Resp 19 06/08/19 06:38 BP 137/67 06/08/19 06:38 Pulse Ox 94 06/08/19 06:38 Testing Laboratory Results 06/08/19 05:24 06/08/19 05:24 PT 10.7 Seconds (9.0-12.0) 06/01/19 18:52 INR 1.0 (0.9-1.1) 06/01/19 18:52 APTT 81.9 Seconds (21.0-31.0) H* 06/02/19 14:23 Hemoglobin A1c 6.4 % (4.5-5.6) H 06/02/19 07:29 06/07/19 20:14 POC Glucose 231 H Electrocardiogram Date: 06/01/19 Findings: + AFIB @ (ventricular rate 162) Chest X-Ray Date: 06/01/19 Findings: + cardiomegaly and + pulmonary vascular congestion Echocardiogram Date: 06/02/19 EF: 55-60% Other Findings: + atrial enlargement (left) and + LVH (severe concentric ) Valvular Disease: + no significant valvular disease
--- NOTE | 2019-06-08 08:30 | Cardioversion ---
Date of Service June 08, 2019 PG Electrical Cardioversion Rp Electrical Cardioversion Report Procedure performed: Cardioversion Indication: The patient is an 83-year-old woman with a history of persistent atrial fibrillation and difficult rate control. Staff sas administrator: Hi Russell MD Procedure in detail: The patient was informed of the risks benefits and alternatives to the intended procedure. She understood such which proceed. A transesophageal echocardiogram was performed immediately prior to the cardioversion. This did not demonstrate any evidence of thrombus in the left atrial appendage. She was taken to the cardiac catheterization suite holding area. A general anesthetic was administered by the Anesthesiology Service. Once appropriately anesthetized, the patient was cardioverted using 200 joules delivered in a biphasic fashion. This returned the patient to sinus rhythm. The patient tolerated procedure well, there were no immediate complications. Patient was neurologically intact subsequent to the procedure. Impression: Successful cardioversion from atrial fibrillation to normal sinus rhythm Coding Level of Care Code Cardioversion, elective Additional Codes Electrical Cardioversion Report ([id number])
--- NOTE | 2019-06-08 08:32 | Post Operative Brief Note ---
Cardiology Brief Post Op Date of Surgery June 08, 2019 Pre & Post Diagnosis Operation Date: 06/08/19 08:15 <No data on this case meets the specified criteria> Procedure DAVIDSON Financial Planning Analyst Hi Russell MD Adult Manager none Estimated Blood Loss 0 Findings See Below No thrombus in JEREMIAS. 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 No significant mitral, aortic or tricuspid regurgitation. Complications none Disposition Accompanied Patient To Recovery: No Disposition: PCU Overlapping Procedure I was immediately available: during the entire case.
[2019-06-08] MEDS ORDERED: PROPOFOL IV EMULSION 10 MG/ML 20 ML VIAL IV ONE (08:49)
[2019-06-08] MEDS ORDERED: LIDOCAINE HCL 2% 2 ML VIAL/AMP(20MG/ML) INFIL ONE (08:49)
[2019-06-08] MEDS ORDERED: AMIODARONE 200 MG TAB PO ONE (09:16)
[2019-06-08] MEDS: dilTIAZem HCL 180 MG CAPCR PO SCH (09:36)
[2019-06-08] MEDS: ATORVASTATIN 20 MG TAB PO SCH (09:57)
[2019-06-08] MEDS: CALCITRIOL 0.25 MCG CAPSULE PO SCH (09:57)
[2019-06-08] MEDS: carvediloL 12.5 MG TAB PO SCH ×2 (09:57→20:26)
[2019-06-08] MEDS: APIXABAN 5 MG TABLET PO SCH ×2 (09:57→20:26)
[2019-06-08] MEDS: ASPIRIN 81 MG ECTAB PO SCH (09:57)
[2019-06-08] MEDS: SPIRONOLACTONE 25 MG TAB PO SCH (09:57)
[2019-06-08] MEDS: dilTIAZem HCL 120 MG CAPCR PO SCH (10:00)
--- NOTE | 2019-06-08 10:52 | Anesthesiology Progress Note ---
Date of Service June 08, 2019 Anesthesia Post Procedure Vital Signs Vital Signs: Temp Pulse Pulse Pulse Resp BP BP 06/08/19 10:31 36.8 C 68 18 106/62 06/08/19 10:00 36.8 C 69 20 110/64 06/08/19 09:34 36.6 C 62 18 158/65 H 06/08/19 09:04 36.5 C 63 18 162/68 H 06/08/19 08:55 57 L 16 135/80 06/08/19 08:40 57 L 16 136/78 06/08/19 06:38 36.3 C L 89 19 137/67 06/08/19 04:05 36.4 C L 92 H 18 135/81 06/07/19 23:47 118 H 06/07/19 23:08 36.6 C 114 H 21 158/71 H 06/07/19 19:09 36.4 C L 84 18 135/80 06/07/19 16:16 80 06/07/19 15:23 36.6 C 86 20 130/83 06/07/19 11:40 36.6 C 59 L 18 148/73 H 06/07/19 11:31 36.5 C 106 H 16 131/78 Pulse Ox 06/08/19 10:31 95 06/08/19 10:00 96 06/08/19 09:34 97 06/08/19 09:04 96 06/08/19 08:55 95 06/08/19 08:40 97 06/08/19 06:38 94 06/08/19 04:05 94 06/07/19 23:47 06/07/19 23:08 94 06/07/19 19:09 93 06/07/19 16:16 06/07/19 15:23 93 06/07/19 11:40 98 06/07/19 11:31 94 Transfer of Care Handoff Completed per policy Notes Mental Status: alert / awake / arousable Patient Amnestic to Procedure: Yes Nausea / Vomiting: adequately controlled Pain: adequately controlled Airway Patency, RR, SpO2: stable & adequate BP & HR: stable & adequate Hydration State: stable & adequate Anesthetic Complications: no major complications apparent
--- NOTE | 2019-06-08 16:27 | Cardiology Progress Note ---
Date of Service June 08, 2019 Assessment & Plan (1) Rapid atrial fibrillation: She underwent successful cardioversion this morning. She is maintaining sinus rhythm. Started oral amiodarone and will reduce some of her other rate control agents to avoid significant bradycardia. She will continue systemic anticoagulation. If she maintains sinus rhythm I think we can consider discharge tomorrow. Admission and Anticipated Discharge Date Admission Date: June 01, 2019 Anticipated date of discharge: 06/07/19 Subjective This afternoon the patient clearly feeling well. She has no breathing trouble. She is been up to the bathroom and actually ambulated with assistance today. Review of Systems Review of Systems: Per HPI Physical Exam Physical Exam: Constitutional: Alert, oriented, in no acute distress HEENT: Head is atraumatic and normocephalic. EOMs intact. Sclera non-icteric. Face is symmetric. No perioral cyanosis. Mucous membranes moist Neck: Supple, no JVD Pulmonary: Normal respiratory effort, clear Cardiac: Regular rhythm, normal S1 and S2, no gallops, no rubs, no murmurs Extremities: No edema. No clubbing or cyanosis. Pulses 2+ and symmetric Skin: Normal skin color, turgor, and pigmentation. No rash or skin lesions Neurological: Oriented to person, place, and time Results & Data ([facility]) Vital Signs (Past 12 Hours) Vital Signs Temp Pulse Pulse Pulse Resp BP BP 06/08/19 15:49 61 06/08/19 15:33 36.7 C 60 18 158/90 H 06/08/19 11:11 36.6 C 62 18 143/84 H 06/08/19 10:31 36.8 C 68 18 106/62 06/08/19 10:00 36.8 C 69 20 110/64 06/08/19 09:34 36.6 C 62 18 158/65 H 06/08/19 09:04 36.5 C 63 18 162/68 H 06/08/19 08:55 57 L 16 135/80 06/08/19 08:40 57 L 16 136/78 06/08/19 06:38 36.3 C L 89 19 137/67 Pulse Ox 06/08/19 15:49 06/08/19 15:33 95 06/08/19 11:11 95 06/08/19 10:31 95 06/08/19 10:00 96 06/08/19 09:34 97 06/08/19 09:04 96 06/08/19 08:55 95 06/08/19 08:40 97 06/08/19 06:38 94 PG Care Time/CCT Total # of Minutes Spent Total Time Spent with Patient: Total time spent is greater than 50% in coordination of care (as documented) at patient's floor/unit and/or counseling patient: Coding Level of Care Code 47321 Subseq Hosp Care Lvl 2 Diagnoses Rapid atrial fibrillation I48.91
[2019-06-08] MEDS: AMIODARONE 200 MG TAB PO SCH (16:56)
--- NOTE | 2019-06-08 18:06 | Electrocardiogram Report ---
Test Reason : Blood Pressure : / mmHG Vent. Rate : 062 BPM Atrial Rate : 062 BPM P-R Int : 232 ms QRS Dur : 094 ms QT Int : 412 ms P-R-T Axes : 052 -44 197 degrees QTc Int : 418 ms Sinus rhythm with 1st degree A-V block Left axis deviation Left ventricular hypertrophy with repolarization abnormality Cannot rule out Septal infarct (cited on or before 08-JUN-2019) Abnormal ECG When compared with ECG of 01-JUN-2019 18:43, Sinus rhythm has replaced Atrial fibrillation Vent. rate has decreased BY 100 BPM Septal infarct is now Present Confirmed by Alexei Murry ([id number]) on 06/08/2019 6:06:11 PM Referred By: REFERRED SELF Confirmed By:Alexei Murry
--- NOTE | 2019-06-08 19:26 | Hospitalist Progress Note ---
Date of Service June 08, 2019 Assessment & Plan (1) Rapid atrial fibrillation: Newly found/new-onset. Back in NSR after DAVIDSON and cardioversion 06/07 after many days of increasing AV blue blocking agents and digoxin without success. TSH WNL RVR throughout admission leading to a degree of heart failure and sudden shortness of breath episodes which may be contributing towards her falls as an outpatient. Pulses recorded do not reflect true heart rate likely due to erratic nature of her a. fib usually in 110s but episodes up to 160s. Now NSR in 60s. Appreciate ongoing cardiology management. Amiodarone started at 400mg PO BID, diltiazem reduced to 120mg CD daily and carvedilol continues at reduced dose of 12.5mg daily (may have to be adjusted tomorrow if bradycardic). Continue Eliquis 5mg BID started 06/02 for anticoagulation. (2) Acute diastolic CHF (congestive heart failure): Mildly hypervolemic but nNow back in NSR with defer any further lasix Diuresed earlier in admission with lasix. (3) Diabetes type 2, controlled: HbA1C 6.4 on recent labs in May. Will d/c glipizide on discharge as more concerned if she is having hypoglycemic episodes. Stopped BSG checks as not requiring insulin on a diabetic diet. (4) CKD (chronic kidney disease), stage III: BMP stable. (5) Fibromyalgia: Unclear diagnosis as per her daughter ?self-diagnosed. Patient reports much improvement with gabapentin/amitriptyline. No prior trials of prednisone for possible fibromyalgia. Discussed multiple symptoms she describes would not be considered fibromyalgia including intermittent cervical (C8) radiculopathies vs. ulna nerve compressions at elbow. Daughter reports deterioration over the last month -> no change in her fibromyal ramesh medications since nephrology visit in March as per chart although patient notes she thinks she was started on gabapentin approximately 1 month ago. Cont amitriptyline, gabapentin, venlafaxine. B12/CK WNL. ESR mildly elevated but in setting of a. fib. Would consider O/P repeat ESR +/- prednisone trial if felt PMR is possible. Statin possibly contributory but since she has been on this for many years will leave possible trial off med to her PCP. (6) Hypertension: controlled but labile on diltiazem, carvedilol, spironolactone (at lower dose). Discontinued hydralazine. Possibly will need to go back up on hydralazine or spironolactone now in NSR and diltiazem reduced. Will monitor for now. (7) Abnormal chest x-ray: ?CAP on presentation and thus abx initiated at time of admission. Subsequently discontinued as pulmonary symptoms and chest x-ray likely secondary to pulmonary edema rather than infection. No procalcitonin taken. (8) Dizziness: chronic issue. Discussed with patient. She feels more of a vertigo sensation after standing for long periods of time. This is separate to her leg weakness. ?a. fib during these times (9) Falls frequently: Pt reports due to intermittent leg weakness, R > L, but normal most of the time. This appears to be longstanding and as per PCP note better since reduction in amitriptyline. Multiple possible etiologies with multiple possible medications contributing including glipizide, statin, gabapentin, amitriptyline, venlafaxine use. Possible hypotension with spironolactone/hydralazine/carvedilol use. Possible a. fib RVR causing hypoperfusion. No power deficit on exam. CT with chronic microvascular disease only. B12 WNL ESR 67 but in setting of a. fib with RVR I am not clear this is reflective of her baseline. 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 Doing much better using a walker as per nursing staff. (10) Antiplatelet or antithrombotic long-term use: Presumably on dual antiplatelets due to renal artery stent placed in Nov 2016 no h/o CAD no h/o TIA or stroke No need for dual antiplatelets now on Eliquis but should continue on ASA. (11) DVT prophylaxis: eliquis BID Continue PT/OT. Pt refusing rehabilitation at this time Admission and Anticipated Discharge Date Admission Date: June 01, 2019 Possible discharge tomorrow if stable in NSR. Anticipated date of discharge: 06/09/19 Subjective Patient feeling significantly better with her breathing and fatigue. Clearly a lot of her symptoms due to atrial fibrillation. In normal sinus rhythm throughout the day. Given left atria size we discussed likeliness at some point she will go back into atrial fibrillation and need to stay on anticoagulation. Hopefully she will stay in atrial fibrillation at least for enough time for the amiodarone to start working. She reports some increased leg swelling over the last few days. No orthopnea or PND. Review of Systems Review of Systems: All systems reviewed & are unremarkable except as noted in HPI & below Physical Exam Constitutional: well developed and well nourished; no acute distress and no altered mental status Eyes: + anicteric sclerae; normal pupil size ENMT: external ear and nose normal, oropharynx normal Mouth: + dry oral mucous membranes Neck: trachea midline, no thyromegaly Respiratory: normal respiratory effort, lungs clear to auscultation no respiratory distress Auscultation: no crackles and no wheezes Cardiovascular: Rate/Rhythm: regular rate and regular rhythm Heart Sounds: normal S1 and normal S2; no murmur Vessels: no JVD Extremities: + pedal edema (1+ b/l equal) Gastrointestinal (Abdomen): normal bowel sounds, soft, nontender, no hepatosplenomegaly Musculoskeletal: no cyanosis or clubbing, extremities motor strength 5/5 Extremities: strength 5/5 throughout (no proximal muscle weakness ) Skin: no rashes, warm and dry Neurologic: moves all extremities and awake; no focal motor deficits (no power deficit in legs on exam) and not confused Motor/Sensory: no tremor and no pronator drift Psychiatric: A+Ox3, euthymic affect Results & Data ([facility]) Vital Signs (Past 12 Hours) Vital Signs Temp Pulse Pulse Pulse Resp BP BP 06/08/19 15:49 61 06/08/19 15:33 36.7 C 60 18 158/90 H 06/08/19 11:11 36.6 C 62 18 143/84 H 06/08/19 10:31 36.8 C 68 18 106/62 06/08/19 10:00 36.8 C 69 20 110/64 06/08/19 09:34 36.6 C 62 18 158/65 H 06/08/19 09:04 36.5 C 63 18 162/68 H 06/08/19 08:55 57 L 16 135/80 06/08/19 08:40 57 L 16 136/78 Pulse Ox 06/08/19 15:49 06/08/19 15:33 95 06/08/19 11:11 95 06/08/19 10:31 95 06/08/19 10:00 96 06/08/19 09:34 97 06/08/19 09:04 96 06/08/19 08:55 95 06/08/19 08:40 97 PG Care Time/CCT Total # of Minutes Spent Total Time Spent with Patient: Total time spent is greater than 50% in coordination of care (as documented) at patient's floor/unit and/or counseling patient: Coding Level of Care Code 70710 Subseq Hosp Care Lvl 3 Diagnoses Rapid atrial fibrillation I48.91 Acute diastolic CHF (congestive heart failure) I50.31 Diabetes type 2, controlled E11.59 Diabetes mellitus complication detail: with other circulatory complications Diabetes mellitus complication status: with circulatory complication Diabetes mellitus fpc insulin use: without fpc use CKD (chronic kidney disease), stage III N18.3 Fibromyalgia M79.7 Hypertension I15.0 Hypertension type: renovascular hypertension Abnormal chest x-ray R93.89 Dizziness R42 Falls frequently R29.6 Antiplatelet or antithrombotic long-term use Z79.02 DVT prophylaxis Z29.9 (1) Diabetes type 2, controlled Diabetes mellitus complication detail: with other circulatory complications Diabetes mellitus complication status: with circulatory complication Diabetes mellitus termite exterminator insulin use: without termite exterminator use Qualified Code(s): E11.59 - Type 2 diabetes mellitus with other circulatory complications (2) Hypertension Hypertension type: renovascular hypertension Qualified Code(s): I15.0 - Renovascular hypertension
[2019-06-08] MEDS: GABAPENTIN 100 MG CAP PO SCH (20:26)
[2019-06-09 04:49] VITALS: TEMP 97.9
[2019-06-09 06:46] LABS: Hematocrit (blood only) 44.5 % (37-47); Mean Corpuscular Hemoglobin 32.3 pg (25-34); Mean Corpuscular Hgb Conc 33.7 g/dL (32-36); Mean Corpuscular Volume 95.9 fL (80-100); Mean Platelet Volume 9.3 fL (7.4-10.4); Platelet Count 299 K/uL (130-400); RDW Coefficient of Variation 13.7 % (11.5-14.5); RDW Standard Deviation 47.5 fL (36.4-46.3); Red Blood Count 4.64 M/uL (4.2-5.4); White Blood Count 7.96 K/uL (4.8-10.8)
[2019-06-09 07:27] VITALS: O2SAT 97
[2019-06-09 07:32] LABS: BUN Creatinine Ratio 22.3 (10-20); Calcium 9.8 mg/dl (8.5-10.1); Est GFR (African American) 40.1; Est GFR (Non-African American) 34.6
[2019-06-09] MEDS: carvediloL 12.5 MG TAB PO SCH (07:45)
[2019-06-09] MEDS: dilTIAZem HCL 120 MG CAPCR PO SCH (07:45)
[2019-06-09] MEDS: APIXABAN 5 MG TABLET PO SCH (07:47)
[2019-06-09] MEDS: ATORVASTATIN 20 MG TAB PO SCH (07:47)
[2019-06-09] MEDS: AMIODARONE 200 MG TAB PO SCH (07:47)
[2019-06-09] MEDS: SPIRONOLACTONE 25 MG TAB PO SCH (07:47)
[2019-06-09] MEDS: CALCITRIOL 0.25 MCG CAPSULE PO SCH (07:47)
[2019-06-09] MEDS: ASPIRIN 81 MG ECTAB PO SCH (07:47)
[2019-06-09 08:16] LABS: Potassium 4.4 mmol/L (3.5-5.1)
[2019-06-09 08:17] LABS: Magnesium 1.9 mg/dl (1.8-2.4)
--- NOTE | 2019-06-09 08:18 | Anesthesiology Progress Note ---
Date of Service June 09, 2019 Anesthesia Post Procedure Vital Signs Vital Signs: Temp Pulse Pulse Pulse Resp BP BP 06/09/19 08:12 62 06/09/19 07:26 36.6 C 54 L 20 115/77 06/09/19 04:23 36.6 C 57 L 19 110/73 06/09/19 02:01 55 L 06/08/19 23:45 36.9 C 53 L 17 167/79 H 06/08/19 19:57 36.7 C 63 20 132/84 06/08/19 15:49 61 06/08/19 15:33 36.7 C 60 18 158/90 H 06/08/19 11:11 36.6 C 62 18 143/84 H 06/08/19 10:31 36.8 C 68 18 106/62 06/08/19 10:00 36.8 C 69 20 110/64 06/08/19 09:34 36.6 C 62 18 158/65 H 06/08/19 09:04 36.5 C 63 18 162/68 H 06/08/19 08:55 57 L 16 135/80 06/08/19 08:40 57 L 16 136/78 Pulse Ox 06/09/19 08:12 06/09/19 07:26 97 06/09/19 04:23 93 06/09/19 02:01 06/08/19 23:45 96 06/08/19 19:57 96 06/08/19 15:49 06/08/19 15:33 95 06/08/19 11:11 95 06/08/19 10:31 95 06/08/19 10:00 96 06/08/19 09:34 97 06/08/19 09:04 96 06/08/19 08:55 95 06/08/19 08:40 97 Notes Mental Status: alert / awake / arousable and participated in evaluation Patient Amnestic to Procedure: Yes Nausea / Vomiting: adequately controlled Pain: adequately controlled Airway Patency, RR, SpO2: stable & adequate BP & HR: stable & adequate Hydration State: stable & adequate Anesthetic Complications: no major complications apparent and Pt Satisfied with anesthetic care
--- NOTE | 2019-06-09 11:29 | Cardiology Progress Note ---
Date of Service June 09, 2019 Assessment & Plan (1) Rapid atrial fibrillation: she has maintained sinus rhythm. She is feeling well. Rate is slightly low. I think she will have more bradycardia as we administer amiodarone. I think we can stop her diltiazem. I think she would be safe for discharge today. I would continue her carvedilol 12.5 milligrams twice daily. Amiodarone 400 milligrams twice daily for 10 days then reduce to 200 milligrams. She should continue her anticoagulation indefinitely. I would like to see her back in the office in 2-4 weeks for re-evaluation. Admission and Anticipated Discharge Date Admission Date: June 01, 2019 Anticipated date of discharge: 06/09/19 Subjective This morning patient is feeling well. She was ambulatory to the bathroom and did not report any significant dizziness or dyspnea. No sense of palpitation. Review of Systems Review of Systems: Per HPI Physical Exam Physical Exam: Constitutional: Alert, oriented, in no acute distress HEENT: Head is atraumatic and normocephalic. EOMs intact. Sclera non-icteric. Face is symmetric. No perioral cyanosis. Mucous membranes moist Neck: Supple, no JVD Pulmonary: Normal respiratory effort, clear Cardiac: Regular rhythm, normal S1 and S2, no gallops, no rubs, no murmurs Extremities: No edema. No clubbing or cyanosis. Pulses 2+ and symmetric Skin: Normal skin color, turgor, and pigmentation. No rash or skin lesions Neurological: Oriented to person, place, and time Results & Data ([facility]) Vital Signs (Past 12 Hours) Vital Signs Temp Pulse Pulse Resp BP BP Pulse Ox 06/09/19 08:12 62 06/09/19 07:26 36.6 C 54 L 20 115/77 97 06/09/19 04:23 36.6 C 57 L 19 110/73 93 06/09/19 02:01 55 L 06/08/19 23:45 36.9 C 53 L 17 167/79 H 96 PG Care Time/CCT Total # of Minutes Spent Total Time Spent with Patient: Total time spent is greater than 50% in coordination of care (as documented) at patient's floor/unit and/or counseling patient: Coding Level of Care Code 99447 Subseq Hosp Care Lvl 2 Diagnoses Rapid atrial fibrillation I48.91
[2019-06-09 13:34] VITALS: BP 167/79; PULSE 57
--- NOTE | 2019-06-09 16:51 | XCELERA ---
[id number] \\[id number]
--- NOTE | 2019-06-16 12:13 | Discharge Summary ---
Date of Service June 09, 2019 Admission HPI Per Admitting Provider Pt is a pleasant 83yo with a PMHx significant for CHF, DMII, CKD Stage III s/p stent placement in renal artery, fibromyalgia and HTN who presented with a 2 week Hx of exertional dyspnea and dizziness, and was found to be in atrial fibrillation with rapid ventricular rate. States that she has been having exertional dyspnea for the last 2 weeks, but did not want to be hospitalized. However, today it became unbearable after measuring a quilt at home. States it took a lot out of her with associated fatigue, weakness, SOB, dizziness and lightheadedness. Denies syncope though daughter in the room admits to a Hx of recent falls. Has CKD but is s/p stent placement and on home plavix and aspirin since then. Is a current smoker, of 6 cigarettes a day. has smoked most of her life except for a period of 7 years when she quit. Started again after the of her . [place] but son lives down the street. Occasional wine cooler drinker. No recreational drug use. ROS as below. Admission Exam Per Admitting Provider General: Alert, oriented. No acute distress, sitting in bed with NC in nares. Speech halting. Skin: No noted rashes or bruises, but insect bite noted on right shoulder Psych: Appropriate mood and affect Neuro: No gross deficits HEENT: NC/AT, PERRLA, EOMI, oropharynx moist. Chest: Nontender to palpation. CV:Irregular rate and rhythm. No murmurs appreciated Resp: Breath sounds with scattered expiratory wheezes bilaterally. Abdomen: BS+. Soft, nontender, nondistended. No guarding. No organomegaly appreciated. Extremities: No edema in lower extremities bilaterally. Principal Diagnosis Paroxysmal atrial fibrillation with rapid ventricular rate Acute diastolic heart failure due to above Ambulatory dysfunction Recurrent falls Discharge Exam Constitutional well developed and well nourished; no acute distress and no altered mental status Eyes + anicteric sclerae; normal pupil size Neck trachea midline Respiratory normal respiratory effort, lungs clear to auscultation no respiratory distress Auscultation: no crackles and no wheezes Cardiovascular Rate/Rhythm: regular rate and regular rhythm Heart Sounds: no murmur Vessels: no JVD Extremities: + pedal edema (1+ b/l equal) Gastrointestinal (Abdomen) normal bowel sounds, soft, nontender, no hepatosplenomegaly Musculoskeletal no cyanosis or clubbing, extremities motor strength 5/5 Extremities: strength 5/5 throughout (no proximal muscle weakness ) Skin no rashes, warm and dry Neurologic moves all extremities and awake Psychiatric A+Ox3, euthymic affect Discharge Data Allergies Allergy/AdvReac Type Severity Reaction Status Date / Time duloxetine Allergy Severe Diarrhea Verified 03/06/19 14:53 SOLANGE Inhibitors Allergy Unknown Verified 03/06/19 14:52 alendronate sodium Allergy Unknown UNKNOWN Verified 03/06/19 14:52 ARB-Angiotensin Receptor Allergy Unknown Verified 03/06/19 14:52 Antagonist cisapride Allergy Unknown UNKNOWN Verified 03/06/19 14:52 diazepam Allergy Unknown UNKNOWN Verified 03/06/19 14:52 nabumetone Allergy Unknown UNKNOWN Verified 03/06/19 14:52 NSAIDS (Non-Steroidal Allergy Unknown Verified 03/06/19 14:52 Anti-Inflamma phenazopyridine Allergy Unknown UNKNOWN Verified 03/06/19 14:52 Sulfa (Sulfonamide Allergy Unknown UNKNOWN Unverified 03/06/19 14:52 Antibiotics) sulindac Allergy Unknown UNKNOWN Verified 03/06/19 14:52 Consultations 06/01/19 20:14 ED Decision to Admit Stat 06/01/19 21:29 Consult Cardiology Routine Procedures Performed Operation Date: 06/08/19 08:15 Actual Procedures p Echo Transesophageal - Yifan Russell MD s Echo Color Flow - Yifan Russell MD s Cardioversion - Yifan Russell MD Ordered Studies 06/05/19 07:45 CT head/brain wo con Routine Hospital Course (1) Rapid atrial fibrillation: Paula Alvarez is an 83 year old female admitted to [facility] from June 01 to June 09 2019 due to shortness of breath. Diagnosed with atrial fibrillation with a rapid ventricular rate on admission causing diastolic valvular heart failure. Extend period of multiple days of rate controlling strategy was ultimately unsuccessful due to limited reduction in heart rate or symptoms with metoprolol, diltiazem and digoxin. Ultimately she was electrically cardioverted after DAVIDSON by Dr Russell on 06/08/2019 and has been symptomatically much improved since. Anticoagulated with apixaban. Started on amiodarone to maintain NSR. Her daughter was also concerned about her ongoing falls at home. Possibly some correlation with starting gabapentin again and recommended discussing continued use of this with her PCP. She also has ongoing generalized muscle aches and fibromyalgia diagnosis. She has multiple symptoms that she relates to fibromyalgia which are clearly different such as cervical neuropathy. I recommended discuss this further with her PCP. There was also some question of whether steroids helped in the past which raises the possibility of PMR especially with her relationship of muscle pain to weather and winter months with proximal muscle weakness. Recommended she discusses a possible trial of low dose prednisone with her PCP. (2) Acute diastolic CHF (congestive heart failure): (3) Diabetes type 2, controlled: (4) CKD (chronic kidney disease), stage III: (5) Fibromyalgia: (6) Hypertension: (7) Abnormal chest x-ray: (8) Dizziness: (9) Falls frequently: (10) Antiplatelet or antithrombotic long-term use: Total Time Total Time Spent Total Time Spent (In Minutes): 40 Total Time Includes: Examination of the Patient, Discharge Planning and Medication Reconciliation Discharge Plan Discharge Items Patient Disposition: Home - Home Health Services Reason For Visit: A FIB WITH RVR Discharge Diagnosis: Paroxysmal atrial fibrillation (new diagnosis) with rapid ventricular rate Above caused diastolic heart failure Multiple falls at home Ambulatory dysfunction Activity: Resume your previous activity Non-emergency contact: Primary Care Provider Call non-emergency contact if: you have any medication questions and your symptoms worsen Follow-up/Referrals: Nile Alan III, MD [Primary Care Provider] - 06/13/19 10:30 am (You have an appoinment on June 12 at 10:30 with your PCP. Please arrive 15 minutes early. If you can not make it to this appoinment please call [phone].) Yifan Russell MD [Physician] - (to be arranged by cardiology, follow up for atrial fibrillation with RVR) Diet: Carb Consistent or DM2 and Heart Healthy Addtl Attending Provider Instructions: You were admitted to [facility] from June 01 to June 09 2019 due to shortness of breath. You were found to be in atrial fibrillation with a rapid ventricular rate. This was causing your shortness of breath with additional mild diastolic heart failure. Despite multiple medications tried to control your rate this strategy was ultimately unsuccessful and your heart rate continued to be fast on metoprolol, diltiazem and digoxin. Ultimately it was decided to electrically convert you back into a normal rhythm. This was performed after confirming no clots in your heart with a transesophageal echocardiogram on 06/08/2019. You have now been in a normal sinus rhythm with much improved shortness of breath for over 24 hours and are now medically stable for discharge. You have been started on apixaban to reduce your stroke risk due to the atrial fibrillation. Please continue this medication unless otherwise advised by a healthcare professional. This increases your risk of bleeding. If you fall and hit your head you should go straight to the Emergency Room. Recommend discontinuing clopidogrel while on apixaban. You daughter was also concerned about your falls at home. This is of even greater concern now your are on apixaban. If this has been worse recently this may be due to gabapentin that was started in February. Recommend discussing continued use with your primary care physician. Regarding you generalized muscle aches and fibromyalgia diagnosis. Recommend discussing this further with your PCP as a number of symptoms described fit alternative diagnoses better as discussed; such as cervical nerve compressions in your neck. Possibly the pain across the front of you chest and neck may be previous episodes of atrial fibrillation. Given proximal muscle weakness having association with the weather you may also wish to trial a course of prednisone for possible polymyalgia rheumatica but recommend discussing this further with your primary care physician. Kind regards, Dr Luke West Pending Studies at Discharge: No Stand-Alone Forms: My [facility] [employer], Smoking Cessation Medications and DC Order Prescriptions: New Eliquis 5 mg Tablet 5 mg PO BID Qty: 60 RF: 0 spironolactone 50 mg tablet 50 mg PO DAILY Qty: 30 RF: 0 carvedilol 12.5 mg Tablet 12.5 mg PO BID Qty: 60 RF: 0 amiodarone 200 mg Tablet 400 mg PO BIDM 9 Days Qty: 36 RF: 0 amiodarone 200 mg tablet 200 mg PO DAILY Qty: 30 RF: 0 Continued amitriptyline 50 mg tablet 50 mg PO HS Qty: 90 RF: 3 aspirin [Aspir-81] 81 mg tablet,delayed release (DR/EC) 81 mg PO QAM RF: 0 venlafaxine 75 mg capsule,extended release 24hr 75 mg PO QPM RF: 0 calcitriol 0.25 mcg capsule 0.25 mcg PO QAM RF: 0 Discontinued carvedilol 25 mg tablet 25 mg PO BID Qty: 180 RF: 3 hydralazine 100 mg tablet 100 mg PO BID Qty: 180 RF: 3 spironolactone 100 mg tablet 100 mg PO QAM RF: 0 clopidogrel [Plavix] 75 mg tablet 75 mg PO QAM RF: 0 glipizide 2.5 mg tablet extended release 24hr 2.5 mg PO QAM RF: 0 No Action nitrofurantoin monohyd/m-cryst [Macrobid] 100 mg capsule 100 mg PO Q12H 7 Days Qty: 14 RF: 0 atorvastatin [Lipitor] 10 mg tablet 10 mg PO DAILY Qty: 30 RF: 2 Discharge Orders: Discharge Order (Routine); Ordered 06/09/19 Ordered By: Luke Ramirez/Other Patient Handouts: Atrial Fibrillation Dc, Cardioversion Electrical Tx, Amiodarone tablets Admission Data Admit Date/Time: 06/01/19 21:29 Attending Provider: Luke West Admit Provider: Kati Chaudhry Primary Care Provider: Nile Alan III Other Providers: [employer] ; Parker Linn ; Yifan Russell DC Date/Time DO NOT enter until pt leaves facility: 06/09/19 13:34 Coding Level of Care Code D/C Day Management >30 mins Diagnoses Rapid atrial fibrillation I48.91 Acute diastolic CHF (congestive heart failure) I50.31 Diabetes type 2, controlled E11.59 Diabetes mellitus meterman insulin use: without care home use Diabetes mellitus complication status: with circulatory complication Diabetes mellitus complication detail: with other circulatory complications CKD (chronic kidney disease), stage III N18.3 Fibromyalgia M79.7 Hypertension I15.0 Hypertension type: renovascular hypertension Abnormal chest x-ray R93.89 Dizziness R42 Falls frequently R29.6 Antiplatelet or antithrombotic long-term use Z79.02
== END 2019-06-09 13:34 | disposition home health service (06) | DRG 308 ==
LOC: ED 18:38 → 2S 21:29 → SUATTDRO 21:29 → 2S 23:02 → 2N 06-06 15:53

== ENCOUNTER 2022-01-07 18:23 | Observation (INO) ==
[2022-01-07] MEDS ORDERED: CEFEPIME 2,000 MG/20 ML VIAL IV STA (18:51)
--- NOTE | 2022-01-07 18:58 | Emergency Department Note ---
Impression & Plan Tachycardia, Hypertension, Cellulitis, Acute UTI, Elevated troponin ED Provider Note NAME: JULIA ZHANG AGE: 86 SEX: F : 1935 ARRIVES VIA: Walk-In INFORMANT: [Patient][family] ED PROVIDER(S): [Wai Santos MD] CHIEF COMPLAINT: Illness HISTORY OF PRESENT ILLNESS: The patient is an 86-year-old female who was noticed that have a high fast heart rate and some bilateral red warm feet today. The patient is a poor historian. As per the family's report, the patient has not had vomiting or diarrhea, there has been no fever, no cough or congestion or shortness of breath. No abdominal pain. They cannot recall the patient ever being diagnosed with cellulitis. REVIEW OF SYSTEMS: See HPI for pertinent positives and negatives. A total of ten systems were reviewed and were otherwise negative. PMHx/PSHx: See Below SOCIAL HISTORY: See Below. PHYSICAL EXAM: GENERAL: Patient is in no acute distress. HEENT: No acute trauma, normocephalic atraumatic, mucous membranes moist, no nasal congestion, no scleral icterus. NECK: No stridor, no adenopathy, no meningismus, trachea is midline. LUNGS: Clear to auscultation bilaterally, no wheeze, no rhonchi, breath sounds equal. HEART: Tachycardic, regular rhythm, no murmurs. ABDOMEN: Soft, nontender, bowel sounds positive, no peritonitis. EXTREMITIES: No cyanosis. There is mild bilateral pedal edema. There is erythema and warmth of both feet and ankles. No drainage. NEUROLOGIC: Poor historian, awake and alert, no acute motor or sensory deficits, no focal weakness. SKIN: No jaundice, no diaphoresis. DIFFERENTIAL DIAGNOSIS: Sepsis, UTI, pneumonia, COVID-19, metabolic abnormality, electrolyte abnormalities, cardiac sources, cellulitis, bacteremia, intracerebral event, toxicologic etiology, neurologic event, as well as other pathologies. EMERGENCY DEPARTMENT COURSE/PROCEDURES: ECG: Indication was tachycardia. The ECG shows what appears to be atrial flutter with a rate of 136. There are some inverted T waves seen in the lateral leads. There is no ST elevation. LVH is present. No PVCs. The QTc is 478. Continuous Cardiac Monitoring: An order was placed for continuous cardiac monitoring. The monitor shows a rate of 136 with atrial flutter. Critical Care Note: I have personally spent 48 minutes of critical care time in the direct management of this patient. This includes bedside care, interpretation of diagnostic studies, and testing, discussion with consultants, patient, and family members, and other required patient management activities. This 48 minutes is in excess of all separately billable procedures. MEDICAL DECISION MAKING: There is no leukocytosis or concerning anemia. There is a normal platelet count. No coagulopathy. Creatinine is mildly elevated, she has a history of the same. There was no electrolyte abnormality in need of emergent correction. Lactic acid level was not elevated making severe sepsis less likely. No worrisome liver enzyme elevation. Procalcitonin level was not elevated. ECG showed a rapid atrial flutter, no obvious ST elevation. Cardiac enzyme testing x1 was slightly elevated. This elevation could be from cardiac injury or potentially just mismatch. Urinalysis did suggest infection. COVID test returned negative. Chest x-ray showed some chronic change, no obvious pneumonia. On exam, the patient had a bilateral lower extremity cellulitis. She was tachycardic. She was hypertensive. The patient was given IV Tylenol, IV cefepime and IV saline. She received her typical dose of oral metoprolol tartrate as well as a dose of IV labetalol, 10 mg. The patient's heart rate has improved, her blood pressure has improved. She seems to be resting comfortably. She has done well with the above-mentioned medications. Patient is in need of a hospital stay. She presents with potential sepsis. She does have 2 sources of infection. I did speak with the patient and case manag ement, the on-call hospitalist was consulted. Past Med/Surg History Medical History Depression Diastolic CHF Dizziness Fibromyalgia Hyperlipidemia Hypertension Non-functioning kidney Peripheral neuropathy Rapid atrial fibrillation Renal artery stenosis Rib pain Stage 3 chronic kidney disease Stress incontinence Type 2 diabetes mellitus Surgical History History of stent insertion of renal artery (~12/03/16) Family History Father Prostate cancer Sister Breast cancer Brother Lung cancer Sister Lung cancer Denies family history of Ovarian cancer Myocardial infarction Colorectal cancer Social History Smoking Status: Current some day smoker Tobacco Type: Cigarettes Age Started Using Tobacco: 21; packs per day: 0.25; Cigarettes Per Day: 5-6; Second Hand Exposure: No; Hx Alcohol Use: No Hx Substance Use: No Preferred Language: Colombian Communication Ability: Effective Visual Impairment: Limited Hearing Ability: Hard of Hearing Train Driver Required: No marital status: / Current Living Situation: [facility] Current Living Situation Comment: lives in [facility] current occupational status: retired current occupation: retired from career working on her farm Feels Safe at Home: Yes Childhood Exposure to Second-Hand Smoke: Yes Dental Care, Regularly: No Physical Activity Frequency: Does not Exercise Seatbelt Use: always Sunscreen Use: No Assistive Devices: Walker Allergies Allergies Allergy/AdvReac Type Severity Reaction Status Date / Time duloxetine Allergy Severe Diarrhea Verified 01/07/22 21:40 SOLANGE Inhibitors Allergy Unknown Unknown Verified 01/07/22 21:40 alendronate sodium Allergy Unknown UNKNOWN Verified 01/07/22 21:40 ARB-Angiotensin Receptor Allergy Unknown Unknown Verified 01/07/22 21:40 Antagonist cisapride Allergy Unknown UNKNOWN Verified 01/07/22 21:40 diazepam Allergy Unknown UNKNOWN Verified 01/07/22 21:40 nabumetone Allergy Unknown UNKNOWN Verified 01/07/22 21:40 NSAIDS (Non-Steroidal Allergy Unknown Unknown Verified 01/07/22 21:40 Anti-Inflamma phenazopyridine Allergy Unknown UNKNOWN Verified 01/07/22 21:40 Sulfa (Sulfonamide Allergy Unknown UNKNOWN Verified 01/07/22 21:40 Antibiotics) sulindac Allergy Unknown UNKNOWN Verified 01/07/22 21:40 Home Meds Home Medications Medication Instructions Recorded Confirmed docusate sodium 100 mg capsule 200 mg PO BIDM 12/24/19 01/07/22 (Stool Softener) acetaminophen 325 mg tablet 650 mg PO Q6H PRN PAIN/FEVER 01/07/22 01/07/22 (Tylenol) apixaban 5 mg tablet (Eliquis) 5 mg PO BIDM 01/07/22 01/07/22 metoprolol tartrate 37.5 mg tablet 37.5 mg PO BIDM 01/07/22 01/07/22 Previous Rx's Medication Instructions Recorded atorvastatin 10 mg tablet (Lipitor) 10 mg PO QAM #90 tabs 04/17/21 amitriptyline 50 mg tablet 50 mg PO HS #90 tabs 06/20/21 calcitriol 0.25 mcg capsule 0.25 mcg PO QAM #90 caps 06/23/21 venlafaxine 150 mg 150 mg PO DAILY #90 caps 09/04/21 capsule,extended release 24 hr spironolactone 100 mg tablet 100 mg PO DAILY #90 tabs 09/24/21 glipizide 2.5 mg tablet, extended 2.5 mg PO DAILY #90 tabs 11/25/21 release 24 hr Results & Data (ED) Vital Signs Vital Signs - 24 hr 01/07/22 18:32 01/07/22 18:59 01/07/22 19:40 Temperature 36.7 C Temperature Source Temporal Artery Scan Pulse Rate 136 H Pulse Rate [Apical] 106 H Pulse Rhythm Irregular Pulse Rhythm [Apical] Pulse Strength [Apical] Respiratory Rate 16 20 Respiratory Effort / Characteristics Non-Labored Spontaneous Non-Labored Respiratory Depth Normal Normal Respiratory Pattern Regular Blood Pressure 191/89 H Blood Pressure [Left Arm] 136/102 H Blood Pressure Mean 123 Blood Pressure Mean [Left Arm] 113 Pulse Oximetry 97 97 97 Oxygen Delivery Method Room Air Room Air Sepsis Recent Fever Within 48 Hours No Sepsis New/Unexplained Change in Mental Status No Sepsis Action Taken by Nursing No Action Required 01/07/22 19:45 01/07/22 20:02 01/07/22 20:30 Temperature Temperature Source Pulse Rate 100 H 121 H Pulse Rate [Apical] 98 H Pulse Rhythm Pulse Rhythm [Apical] Regular Pulse Strength [Apical] Normal Respiratory Rate 18 20 23 Respiratory Effort / Characteristics Non-Labored Respiratory Depth Normal Respiratory Pattern Regular Blood Pressure 171/116 H Blood Pressure [Left Arm] 136/102 H Blood Pressure Mean 134 Blood Pressure Mean [Left Arm] 113 Pulse Oximetry 94 97 Oxygen Delivery Method Room Air Sepsis Recent Fever Within 48 Hours Sepsis New/Unexplained Change in Mental Status Sepsis Action Taken by Nursing 01/07/22 21:30 01/07/22 23:01 Temperature Temperature Source Pulse Rate 105 H 72 Pulse Rate [Apical] Pulse Rhythm Pulse Rhythm [Apical] Pulse Strength [Apical] Respiratory Rate 22 19 Respiratory Effort / Characteristics Respiratory Depth Respiratory Pattern Blood Pressure 118/85 133/60 Blood Pressure [Left Arm] Blood Pressure Mean 96 84 Blood Pressure Mean [Left Arm] Pulse Oximetry 95 Oxygen Delivery Method Sepsis Recent Fever Within 48 Hours Sepsis New/Unexplained Change in Mental Status Sepsis Action Taken by [facility] Medications Current Medication List: was personally reviewed by me Laboratory Data Attestation: I reviewed the patient's lab results. Result diagrams: 01/07/22 19:49 01/07/22 19:51 Lab Results 01/07/22 01/07/22 01/07/22 Range/Units 19:30 19:38 19:49 WBC (4.8-10.8) K/ul RBC (3.93-5.22) M/uL Hgb (12.0-16.0) g/dl Hct (34.1-44.9) % MCV (80.0-100.0) fL MCH (25.0-34.0) pg MCHC (32.0-36.0) g/dL RDW Std Deviation (36.4-46.3) fL RDW Coeff of [place] (11.5-14.5) % Plt Count (130-400) K/uL MPV (9.4-12.3) fL Immature Gran % (Auto) % Neut % (Auto) % Lymph % (Auto) % [place] % (Auto) % Eos % (Auto) % Baso % (Auto) % Neut # (Auto) (1.4-6.5) K/uL Lymph # (Auto) (1.2-3.4) K/uL [place] # (Auto) (0.24-0.82) K/uL Eos # (Auto) (0-0.50) K/uL Baso # (Auto) (0-0.2) K/uL Immature Gran # (Auto) (0.00-0.02) K/uL PT (9.0-12.0) Seconds INR (0.9-1.1) APTT (21.0-31.0) Seconds PTT Ratio Sodium (136-145) mmol/L Potassium (3.5-5.1) mmol/L Chloride (98-107) mmol/L Carbon Dioxide (21-32) mmol/L Anion Gap (3-11) BUN (6-23) mg/dl Creatinine (0.6-1.2) mg/dl Est Cr Clr Drug Dosing ml/min Est GFR ( Amer) ml/min Est GFR (Non-Af Amer) ml/min BUN/Creatinine Ratio (10-20) Glucose (70-99(Fasting)) mg/dl Lactate (0.4-2.0) mmol/L Calcium (8.5-10.1) mg/dl Magnesium 1.8 (1.7-2.4) mg/dl Total Bilirubin 0.3 (0.2-1.0) mg/dl Direct Bilirubin 0.1 (0-0.2) mg/dl AST 8 L (13-39) U/L ALT 12 (7-52) U/L Alkaline Phosphatase 79 (34-104) U/L Troponin I High Sens 29.2 H D (0-14) pg/ml Total Protein 5.7 L (6.0-8.3) gm/dl Albumin 3.2 L (3.4-5.0) gm/dl Procalcitonin (0-0.5) ng/ml Urine Color Yellow Urine Appearance Cloudy A (Clear) Urine pH 5.5 (4.5-7.5) Ur Specific [place] 1.028 (1.000-1.030) Urine Protein 2+ H (Negative) Urine Glucose (UA) Negative (Negative) Urine Ketones Trace H (Negative) Urine Blood Negative (Negative) Urine Nitrite Positive A (Negative) Urine Bilirubin Negative (Negative) Urine Urobilinogen Negative (Negative) Ur Leukocyte Esterase Negative (Negative) Urine WBC (Auto) >30 H (0-5) /hpf Urine RBC (Auto) 0-4 (0-4) /hpf U Hyaline Cast (Auto) 1-5 (0-5) /lpf U Epithel Cells (Auto) 5-10 H (0-5) /lpf Urine Bacteria (Auto) 4+ H (Negative) Amorphous Sediment Present A (None Prsent) Urine Yeast Not Reportable Urine Sperm Not Reportable SARS-CoV-2 (PCR) NEGATIVE (Negative) 01/07/22 01/07/22 01/07/22 Range/Units 19:49 19:49 19:49 WBC 10.80 (4.8-10.8) K/ul RBC 4.30 (3.93-5.22) M/uL Hgb 12.6 (12.0-16.0) g/dl Hct 40.1 (34.1-44.9) % MCV 93.3 (80.0-100.0) fL MCH 29.3 (25.0-34.0) pg MCHC 31.4 L (32.0-36.0) g/dL RDW Std Deviation 53.1 H (36.4-46.3) fL RDW Coeff of [place] 15.7 H (11.5-14.5) % Plt Count 254 (130-400) K/uL MPV 9.0 L (9.4-12.3) fL Immature Gran % (Auto) 0.8 % Neut % (Auto) 74.7 % Lymph % (Auto) 14.0 % [place] % (Auto) 8.1 % Eos % (Auto) 1.9 % Baso % (Auto) 0.5 % Neut # (Auto) 8.07 H (1.4-6.5) K/uL Lymph # (Auto) 1.51 (1.2-3.4) K/uL [place] # (Auto) 0.87 H (0.24-0.82) K/uL Eos # (Auto) 0.21 (0-0.50) K/uL Baso # (Auto) 0.05 (0-0.2) K/uL Immature Gran # (Auto) 0.09 H (0.00-0.02) K/uL PT 11.2 (9.0-12.0) Seconds INR 1.1 (0.9-1.1) APTT 24.8 (21.0-31.0) Seconds PTT Ratio 0.9 Sodium (136-145) mmol/L Potassium (3.5-5.1) mmol/L Chloride (98-107) mmol/L Carbon Dioxide (21-32) mmol/L Anion Gap (3-11) BUN (6-23) mg/dl Creatinine (0.6-1.2) mg/dl Est Cr Clr Drug Dosing ml/min Est GFR ( Amer) ml/min Est GFR (Non-Af Amer) ml/min BUN/Creatinine Ratio (10-20) Glucose (70-99(Fasting)) mg/dl Lactate 1.4 (0.4-2.0) mmol/L Calcium (8.5-10.1) mg/dl Magnesium (1.7-2.4) mg/dl Total Bilirubin (0.2-1.0) mg/dl Direct Bilirubin (0-0.2) mg/dl AST (13-39) U/L ALT (7-52) U/L Alkaline Phosphatase (34-104) U/L Troponin I High Sens (0-14) pg/ml Total Protein (6.0-8.3) gm/dl Albumin (3.4-5.0) gm/dl Procalcitonin (0-0.5) ng/ml Urine Color Urine Appearance (Clear) Urine pH (4.5-7.5) Ur Specific [place] (1.000-1.030) Urine Protein (Negative) Urine Glucose (UA) (Negative) Urine Ketones (Negative) Urine Blood (Negative) Urine Nitrite (Negative) Urine Bilirubin (Negative) Urine Urobilinogen (Negative) Ur Leukocyte Esterase (Negative) Urine WBC (Auto) (0-5) /hpf Urine RBC (Auto) (0-4) /hpf U Hyaline Cast (Auto) (0-5) /lpf U Epithel Cells (Auto) (0-5) /lpf Urine Bacteria (Auto) (Negative) Amorphous Sediment (None Prsent) Urine Yeast Urine Sperm SARS-CoV-2 (PCR) (Negative) 01/07/22 01/07/22 Range/Units 19:49 19:51 WBC (4.8-10.8) K/ul RBC (3.93-5.22) M/uL Hgb (12.0-16.0) g/dl Hct (34.1-44.9) % MCV (80.0-100.0) fL MCH (25.0-34.0) pg MCHC (32.0-36.0) g/dL RDW Std Deviation (36.4-46.3) fL RDW Coeff of [place] (11.5-14.5) % Plt Count (130-400) K/uL MPV (9.4-12.3) fL Immature Gran % (Auto) % Neut % (Auto) % Lymph % (Auto) % [place] % (Auto) % Eos % (Auto) % Baso % (Auto) % Neut # (Auto) (1.4-6.5) K/uL Lymph # (Auto) (1.2-3.4) K/uL [place] # (Auto) (0.24-0.82) K/uL Eos # (Auto) (0-0.50) K/uL Baso # (Auto) (0-0.2) K/uL Immature Gran # (Auto) (0.00-0.02) K/uL PT (9.0-12.0) Seconds INR (0.9-1.1) APTT (21.0-31.0) Seconds PTT Ratio Sodium 138 (136-145) mmol/L Potassium 4.9 (3.5-5.1) mmol/L Chloride 106 (98-107) mmol/L Carbon Dioxide 26 (21-32) mmol/L Anion Gap 6 (3-11) BUN 23 (6-23) mg/dl Creatinine 1.26 H (0.6-1.2) mg/dl Est Cr Clr Drug Dosing 31.7 ml/min Est GFR ( Amer) 45.0 ml/min Est GFR (Non-Af Amer) 38.8 ml/min BUN/Creatinine Ratio 18.3 (10-20) Glucose 172 H (70-99(Fasting)) mg/dl Lactate (0.4-2.0) mmol/L Calcium 8.8 (8.5-10.1) mg/dl Magnesium (1.7-2.4) mg/dl Total Bilirubin (0.2-1.0) mg/dl Direct Bilirubin (0-0.2) mg/dl AST (13-39) U/L ALT (7-52) U/L Alkaline Phosphatase (34-104) U/L Troponin I High Sens (0-14) pg/ml Total Protein (6.0-8.3) gm/dl Albumin (3.4-5.0) gm/dl Procalcitonin < 0.05 (0-0.5) ng/ml Urine Color Urine Appearance (Clear) Urine pH (4.5-7.5) Ur Specific [place] (1.000-1.030) Urine Protein (Negative) Urine Glucose (UA) (Negative) Urine Ketones (Negative) Urine Blood (Negative) Urine Nitrite (Negative) Urine Bilirubin (Negative) Urine Urobilinogen (Negative) Ur Leukocyte Esterase (Negative) Urine WBC (Auto) (0-5) /hpf Urine RBC (Auto) (0-4) /hpf U Hyaline Cast (Auto) (0-5) /lpf U Epithel Cells (Auto) (0-5) /lpf Urine Bacteria (Auto) (Negative) Amorphous Sediment (None Prsent) Urine Yeast Urine Sperm SARS-CoV-2 (PCR) (Negative) Administered Medications Discontinued Medications Sodium Chloride (Nss 1000ml) 1,000 mls @ 999 mls/hr IV .Q1H1M SAGAR Stop: 01/07/22 20:00 Last Infusion: 01/07/22 20:41 Dose: 0 mls/hr Documented By: Admin: 01/07/22 19:27 Dose: 999 mls/hr Documented By: OAEdwige Cefepime HCl (Maxipime) 2,000 mg in 20 mls @ 5 mls/min IV NOW STA; Protocol Stop: 01/07/22 18:54 Last Admin: 01/07/22 19:54 Dose: 5 mls/min Documented By: BOZENA Acetaminophen (Ofirmev) 1,000 mg in 100 mls @ 400 mls/hr IV NOW STA Stop: 01/07/22 19:33 Last Infusion: 01/07/22 19:45 Dose: 0 mls/hr Documented By: OAEdwige Admin: 01/07/22 19:27 Dose: 400 mls/hr Documented By: BOZENA Labetalol HCl (Labetalol Hcl Iv 5 Mg/Ml 20ml) 10 mg IV NOW STA Stop: 01/07/22 20:51 Last Admin: 01/07/22 20:57 Dose: 10 mg Documented By: BOZENA Co-signed By: MED Metoprolol Tartrate (Metoprolol Tartrate 50 Mg Tab) 37.5 mg PO NOW STA Stop: 01/07/22 20:51 Last Admin: 01/07/22 20:57 Dose: 37.5 mg Documented By: OAEdwige Imaging Data Radiologist's Impression: Chest X-Ray 01/07/22 18:52 XR chest 1V portable HISTORY: Sepsis COMPARISON: Chest 12/11/2021. FINDINGS: Rotated study. No pneumothorax. No pleural effusions. There is mild diffuse interstitial thickening. This may be chronic or represent mild congestive change. Left basilar linear densities favor subsegmental atelectasis or scarring. This is similar to the prior study. Otherwise, no new focal lung consolidations. The heart remains enlarged. Old, healed left-sided rib fractures again noted. IMPRESSION: Cardiomegaly with diffuse interstitial thickening. This may represent chronic interstitial change or mild pulmonary vascular congestion. ACT 112: Negative or not required by law. Electronically signed by: Steven Cuba M.D. 01/07/2022 8:26 PM Discharge Plan Visit Data Chief Complaint: Illness Stated Complaint: BOTH ANKLES ARE WARM AND SWOLLEN HEART RATE 115 ED Provider: Wai Santos Discharge Problem: Tachycardia, Hypertension, Cellulitis, Acute UTI, Elevated troponin Patient Disposition: Admitted As Inpatient Condition: Fair Forms Stand Alone Forms: [facility] Prescriptions Prescriptions: No Action atorvastatin [Lipitor] 10 mg tablet 10 mg PO QAM Qty: 90 3RF amitriptyline 50 mg tablet 50 mg PO HS Qty: 90 3RF calcitriol 0.25 mcg capsule 0.25 mcg PO QAM Qty: 90 3RF venlafaxine 150 mg capsule,extended release 24hr 150 mg PO DAILY Qty: 90 3RF spironolactone 100 mg tablet 100 mg PO DAILY Qty: 90 3RF glipizide 2.5 mg tablet extended release 24hr 2.5 mg PO DAILY Qty: 90 3RF docusate sodium [Stool Softener] 100 mg Capsule 200 mg PO BIDM acetaminophen [Tylenol] 325 mg Tablet 650 mg PO Q6H MDD 3 GRAMS/24 HOURS PRN (Reason: PAIN/FEVER) Eliquis 5 mg tablet 5 mg PO BIDM metoprolol tartrate 37.5 mg tablet 37.5 mg PO BIDM Referrals Referrals: Joanie Rodrigues MD [Primary Care Provider] -
[2022-01-07] MEDS ORDERED: SODIUM CHLORIDE 0.9% 1000ML 1,000 ML IV SCH (19:00)
[2022-01-07] MEDS ORDERED: ACETAMINOPHEN 1,000 MG/100 ML VIAL IV STA (19:19)
[2022-01-07 19:55] LABS: Appearance Urine Cloudy (Clear); Bacteria Urine Automated 4+ (Negative); Bilirubin Urine Negative (Negative); Blood Urine Negative (Negative); Color Urine Yellow; Glucose Urine UA Negative (Negative); Ketones Urine Trace (Negative); Leukocyte Esterase Urine Negative (Negative); Nitrite Urine Positive (Negative); Protein Urine 2+ (Negative); RBC Urine Automated 0-4 /hpf (0-4); Specific Gravity Urine 1.028 (1.000-1.030); Urobilinogen Urine Negative (Negative); WBC Urine Automated >30 /hpf (0-5); pH Urine 5.5 (4.5-7.5)
[2022-01-07 20:12] LABS: Basophils # (auto) 0.05 K/uL (0-0.2); Basophils % (auto) 0.5 %; Eosinophils # (auto) 0.21 K/uL (0-0.50); Eosinophils % (auto) 1.9 %; Hematocrit (blood only) 40.1 % (34.1-44.9); Hemoglobin 12.6 g/dl (12.0-16.0); Immature Granulocytes # (auto) 0.09 K/uL (0.00-0.02); Immature Granulocytes % (auto) 0.8 %; Lymphocytes # (auto) 1.51 K/uL (1.2-3.4); Mean Corpuscular Hemoglobin 29.3 pg (25.0-34.0); Mean Corpuscular Hgb Conc 31.4 g/dL (32.0-36.0); Mean Corpuscular Volume 93.3 fL (80.0-100.0); Monocytes # (auto) 0.87 K/uL (0.24-0.82); Monocytes % (auto) 8.1 %; Neutrophils # (auto) 8.07 K/uL (1.4-6.5); Neutrophils % (auto) 74.7 %; Platelet Count 254 K/uL (130-400); RDW Coefficient of Variation 15.7 % (11.5-14.5); RDW Standard Deviation 53.1 fL (36.4-46.3)
[2022-01-07 20:26] LABS: Albumin Level 3.2 gm/dl (3.4-5.0); Bilirubin Direct 0.1 mg/dl (0-0.2); Bilirubin,Total 0.3 mg/dl (0.2-1.0); Magnesium 1.8 mg/dl (1.7-2.4); Total Protein 5.7 gm/dl (6.0-8.3)
[2022-01-07 20:28] LABS: Troponin I High Sensitivity 29.2 pg/ml (0-14)
--- NOTE | 2022-01-07 20:28 | XRay Report ---
XR chest 1V portable HISTORY: Sepsis COMPARISON: Chest 12/11/2021. FINDINGS: Rotated study. No pneumothorax. No pleural effusions. There is mild diffuse interstitial th ickening. This may be chronic or represent mild congestive change. Left basilar linear densities favo r subsegmental atelectasis or scarring. This is similar to the prior study. Otherwise, no new focal l milka consolidations. The heart remains enlarged. Old, healed left-sided rib fractures again noted. IMPRESSION: Cardiomegaly with diffuse interstitial thickening. This may represent chronic interstitial change or mild pulmonary vascular congestion. ACT 112: Negative or not required by law. Electronically signed by: Steven Cuba M.D. 01/07/2022 8:26 PM
[2022-01-07 20:29] LABS: INR 1.1 (0.9-1.1); Partial Thromboplastin Ratio 0.9; Partial Thromboplastin Time 24.8 Seconds (21.0-31.0); Prothrombin Time 11.2 Seconds (9.0-12.0)
[2022-01-07 20:41] LABS: Amorphous Sediment Urine Present (None Prsent)
[2022-01-07] MEDS ORDERED: METOPROLOL TARTRATE 50 MG TAB PO STA (20:50)
[2022-01-07] MEDS ORDERED: LABETALOL HCL IV 5 MG/ML 20ML IV STA (20:50)
[2022-01-07 21:04] LABS: BUN Creatinine Ratio 18.3 (10-20); Calcium 8.8 mg/dl (8.5-10.1); Creatinine Clr Calc Pharmacy 31.7 ml/min; Est GFR (Non-African American) 38.8 ml/min; Potassium 4.9 mmol/L (3.5-5.1)
--- NOTE | 2022-01-07 21:20 | History & Physical Report ---
Date of Service January 07, 2022 Assessment & Plan (1) Atrial flutter: Plan: Patient is an 86 yo female with PMHx of DM2, CKIII, HTN, diastolic CHF, atrial fibrillation, frequent falls, fibromyalgia, and HLD admitted to [facility] on 01/07/22. Atrial flutter - Admit to medsurg/tele - EKG in ER: atrial flutter, rate 136, LAD, LVH, no ST elevations - Pt with hx of atrial fibrillation with RVR. On metoprolol 37.5mg po BID at home. - Continue home metoprolol for rate control and anticoagulation with Eliquis - Lopressor 5mg IV ordered prn for HR > 110 bpm - Pt is followed by cardiology, Dr. Russell, in outpatient setting. Per chart review (last office visit note 2 weeks ago, 12/26/21), there is concern for possible tachybrady syndrome given hx of bradycardia when in sinus rhythm. Will consult cardiology. - Last echo in 2019 (both TTE and [facility]IDSON) -- LVEF 55-60%, severe cLVH, left atrium severely dilated, moderate mitral annualar calcification - Repeat TTE ordered - Elevated HS-trop at 29.2 on admission. Will recheck in 6 hours. Suspect most likely demand secondary to aflutter/tachycardia - Goal K > 4 and Mag > 2 - K at goal on admission (4.9). Mag 1.8 on admission; 1g Mag ordered. - Recheck CBC, CMP, mag in AM Peripheral Edema / Venous stasis dermatitis to BLE - Peripheral edema most likely secondary to chronic venous insufficiency - Mild patchy erythema of bilateral feet w/ ill-defined margins - Low suspicion for BLE cellulitis -- pt afebrile, no leukocytosis - Will defer further abx treatment - Recommend elevating feet and use of compression stockings - Most recent nephrology note from 09/25/21 reviewed -- noted to have some dependent edema in BLE improving with furosemide. However, furosemide was subsequently discontinued due to pruritus rash thought to be related to the fur osemide; medication held as of 11/27/21. Will retrial furosemide 20mg IV tonight Asymptomatic bacteriuria - UA 01/07/22: cloudy, 2+ protein, trace ketones, negative blood, positive nitrite, negative leuk esterase, > 30 WBC, 5-10 epithelial, 4+ bacteria - Received cefepime x1 in ER - Will defer further abx treatment at this time - Low threshold to start abx therapy for development of urinary sxs - Urine cx pending Hypertension - Continue home spironolactone, metoprolol - Per chart review, unable to tolerate amlodipine, SOLANGE/ARB, and hydralazine - Managed by nephrology DMII - On glipizide at home; held on admission - Will tx with basal/ISS while in the hospital - Goal 100-140; basal 5u BID; CF 50; carb ratio 20 - BSGs ACHS - Last A1c 6.9% (05/27/21); will recheck A1c with am lab CKD-III - Followed by nephrology - Baseline Cr 1.2 to 1.5 - Cr on admission is 1.26, at baseline - Avoid nephrotoxic agents Secondary Hyperparathyroidism - Continue home calcitriol Fibromyalgia - Continue home amitriptyline Depression - Continue home venlafaxine Hyperlipidemia - Continue home atorvastatin Tobacco use - Patient smokes 6 cigarettes/day - Declines need for nicotine replacement patch on admission Dispo: Admit to medsur/tele; would expect patient to be discharged back to [facility] in [place] on discharge DVT PPx: Anticoagulated with home Eliquis FENGI: DM/heart healthy diet Code status: DNR/DNI (2) Asymptomatic bacteriuria: (3) Hypertension: (4) Venous stasis dermatitis of both lower extremities: (5) Elevated troponin: (6) Diabetes mellitus, type II: (7) CKD (chronic kidney disease), stage III: (8) Antiplatelet or antithrombotic long-term use: (9) Diastolic CHF: (10) Fibromyalgia: (11) Hyperlipidemia: (12) Depression: History of Present Illness Primary Care Provider: Joanie Rodrigues MD Patient is an 86 yo female with PMHx of DM2, CKIII, HTN, diastolic CHF, atrial fibrillation, frequent falls, fibromyalgia, and HLD who presented to [facility] on 01/07/22 due to BLE erythema, swelling, and pain x1 week. Patient is a poor historian; no family at bedside. Patient is unable to describe pain of lower extremities. She does report similar episodes in the past. Patient additionally reports generalized weakness which is chronic and unchanged from baseline. Also with chronic balance problems "for years" which is unchanged from baseline. She ambulates with walker. While in the ER, patient was noted to be in a-flutter with rate of 136 bpm. She does note a hx of atrial fibrillation and states that she "never feels anything abnormal." Home medications include anticoagulation with Eliquis and rate control with metoprolol. Patient states that she did not have any feeling of tachycardia, palpitations, chest pain, nor SOB. Also denies abdominal pain, nausea, vomiting, fever, chills, cough, and urinary symptoms including hematuria, dysuria, urinary frequency, and urinary retention. Allergies Allergy/AdvReac Type Severity Reaction Status Date / Time duloxetine Allergy Severe Diarrhea Verified 01/07/22 21:40 SOLANGE Inhibitors Allergy Unknown Unknown Verified 01/07/22 21:40 alendronate sodium Allergy Unknown UNKNOWN Verified 01/07/22 21:40 ARB-Angiotensin Receptor Allergy Unknown Unknown Verified 01/07/22 21:40 Antagonist cisapride Allergy Unknown UNKNOWN Verified 01/07/22 21:40 diazepam Allergy Unknown UNKNOWN Verified 01/07/22 21:40 nabumetone Allergy Unknown UNKNOWN Verified 01/07/22 21:40 NSAIDS (Non-Steroidal Allergy Unknown Unknown Verified 01/07/22 21:40 Anti-Inflamma phenazopyridine Allergy Unknown UNKNOWN Verified 01/07/22 21:40 Sulfa (Sulfonamide Allergy Unknown UNKNOWN Verified 01/07/22 21:40 Antibiotics) sulindac Allergy Unknown UNKNOWN Verified 01/07/22 21:40 Home Medications Medication Instructions Recorded Confirmed Type docusate sodium 100 mg capsule 200 mg PO BIDM 12/24/19 01/07/22 History (Stool Softener) atorvastatin 10 mg tablet (Lipitor) 10 mg PO QAM #90 tabs 04/17/21 01/07/22 Rx amitriptyline 50 mg tablet 50 mg PO HS #90 tabs 06/20/21 01/07/22 Rx calcitriol 0.25 mcg capsule 0.25 mcg PO QAM #90 caps 06/23/21 01/07/22 Rx venlafaxine 150 mg 150 mg PO DAILY #90 caps 09/04/21 01/07/22 Rx capsule,extended release 24 hr spironolactone 100 mg tablet 100 mg PO DAILY #90 tabs 09/24/21 01/07/22 Rx glipizide 2.5 mg tablet, extended 2.5 mg PO DAILY #90 tabs 11/25/21 01/07/22 Rx release 24 hr acetaminophen 325 mg tablet 650 mg PO Q6H PRN PAIN/FEVER 01/07/22 01/07/22 History (Tylenol) apixaban 5 mg tablet (Eliquis) 5 mg PO BIDM 01/07/22 01/07/22 History metoprolol tartrate 37.5 mg tablet 37.5 mg PO BIDM 01/07/22 01/07/22 History Past Med/Surg History Medical History (Updated 01/08/22 @ 00:32 by Zoraida Alvares DO) Asymptomatic bacteriuria Atrial flutter Depression Diastolic CHF Dizziness Fibromyalgia Hyperlipidemia Hypertension Non-functioning kidney Peripheral neuropathy Rapid atrial fibrillation Renal artery stenosis Rib pain Stage 3 chronic kidney disease Stress incontinence Type 2 diabetes mellitus Venous stasis dermatitis of both lower extremities Surgical History History of stent insertion of renal artery (~12/03/16) Family History Father Prostate cancer Sister Breast cancer Brother Lung cancer Sister Lung cancer Denies family history of Ovarian cancer Myocardial infarction Colorectal cancer Social History Smoking Status: Current some day smoker Tobacco Type: Cigarettes Age Started Using Tobacco: 21; packs per day: 0.25; Cigarettes Per Day: 5-6; Second Hand Exposure: No; Hx Alcohol Use: No Hx Substance Use: No Preferred Language: [place]ese Communication Ability: Effective Visual Impairment: Limited Hearing Ability: Hard of Hearing Assistant Professor Of Education Required: No marital status: / Current Living Situation: Senior Living Current Living Situation Comment: lives in [facility] current occupational status: retired current occupation: retired from career working on her farm Feels Safe at Home: Yes Childhood Exposure to Second-Hand Smoke: Yes Dental Care, Regularly: No Physical Activity Frequency: Does not Exercise Seatbelt Use: always Sunscreen Use: No Assistive Devices: Walker Review of Systems Review of Systems: See HPI Physical Exam Physical Exam: GENERAL: No acute distress. Well developed and well nourished. Vital signs reviewed as above. EYES: PERRL. EOMI. Anicteric sclerae. HENT: Moist mucous membranes. RESPIRATORY: Clear to auscultation bilaterally. No wheezing, rales, or rhonchi. CARDIOVASCULAR: Regular rate. Irregularly irregular rhythm. No murmurs. No JVD. ABDOMEN: Soft, non-tender and non-distended. Normal bowel sounds. EXTREMITIES: 3+ pitting edema to bilateral lower extremities with associated mild tenderness to palpation. No calf tenderness. SKIN: Warm, dry. Mild patchy erythema to bilateral feet without well defined borders, consistent with chronic venous stasis changes. NEUROLOGIC: A/O x3. Normal speech. No focal neurological deficits. PSYCHIATRIC: Cooperative. Appropriate mood and affect. Results & Data Results & Data ([facility]) Vital Signs (Past 12 Hours) Vital Signs Temp Pulse Pulse Resp BP BP Pulse Ox 01/07/22 20:30 121 H 23 01/07/22 20:02 100 H 20 171/116 H 97 01/07/22 19:45 98 H 18 136/102 H 94 01/07/22 19:40 106 H 20 136/102 H 97 01/07/22 18:59 97 01/07/22 18:32 36.7 C 136 H 16 191/89 H 97 O2 Del Method 01/07/22 20:30 01/07/22 20:02 01/07/22 19:45 Room Air 01/07/22 19:40 Room Air 01/07/22 18:59 Room Air 01/07/22 18:32 Laboratory Results 01/07/22 01/07/22 01/07/22 Range/Units 19:51 19:49 19:49 WBC (4.8-10.8) K/ul RBC (3.93-5.22) M/uL Hgb (12.0-16.0) g/dl Hct (34.1-44.9) % MCV (80.0-100.0) fL MCH (25.0-34.0) pg MCHC (32.0-36.0) g/dL RDW Std Deviation (36.4-46.3) fL RDW Coeff of Carmenza (11.5-14.5) % Plt Count (130-400) K/uL MPV (9.4-12.3) fL Immature Gran % (Auto) % Neut % (Auto) % Lymph % (Auto) % [place] % (Auto) % Eos % (Auto) % Baso % (Auto) % Neut # (Auto) (1.4-6.5) K/uL Lymph # (Auto) (1.2-3.4) K/uL [place] # (Auto) (0.24-0.82) K/uL Eos # (Auto) (0-0.50) K/uL Baso # (Auto) (0-0.2) K/uL Immature Gran # (Auto) (0.00-0.02) K/uL PT (9.0-12.0) Seconds INR (0.9-1.1) APTT (21.0-31.0) Seconds PTT Ratio Sodium 138 (136-145) mmol/L Potassium 4.9 (3.5-5.1) mmol/L Chloride 106 (98-107) mmol/L Carbon Dioxide 26 (21-32) mmol/L Anion Gap 6 (3-11) BUN 23 (6-23) mg/dl Creatinine 1.26 H (0.6-1.2) mg/dl Est Cr Clr Drug Dosing 31.7 ml/min Est GFR ( Amer) 45.0 ml/min Est GFR (Non-Af Amer) 38.8 ml/min BUN/Creatinine Ratio 18.3 (10-20) Glucose 172 H (70-99(Fasting)) mg/dl Lactate 1.4 (0.4-2.0) mmol/L Calcium 8.8 (8.5-10.1) mg/dl Magnesium (1.7-2.4) mg/dl Total Bilirubin (0.2-1.0) mg/dl Direct Bilirubin (0-0.2) mg/dl AST (13-39) U/L ALT (7-52) U/L Alkaline Phosphatase (34-104) U/L Troponin I High Sens (0-14) pg/ml Total Protein (6.0-8.3) gm/dl Albumin (3.4-5.0) gm/dl Procalcitonin < 0.05 (0-0.5) ng/ml Urine Color Urine Appearance (Clear) Urine pH (4.5-7.5) Ur Specific Hessel (1.000-1.030) Urine Protein (Negative) Urine Glucose (UA) (Negative) Urine Ketones (Negative) Urine Blood (Negative) Urine Nitrite (Negative) Urine Bilirubin (Negative) Urine Urobilinogen (Negative) Ur Leukocyte Esterase (Negative) Urine WBC (Auto) (0-5) /hpf Urine RBC (Auto) (0-4) /hpf U Hyaline Cast (Auto) (0-5) /lpf U Epithel Cells (Auto) (0-5) /lpf Urine Bacteria (Auto) (Negative) Amorphous Sediment (None Prsent) Urine Yeast Urine Sperm SARS-CoV-2 (PCR) (Negative) 01/07/22 01/07/22 01/07/22 Range/Units 19:49 19:49 19:49 WBC 10.80 (4.8-10.8) K/ul RBC 4.30 (3.93-5.22) M/uL Hgb 12.6 (12.0-16.0) g/dl Hct 40.1 (34.1-44.9) % MCV 93.3 (80.0-100.0) fL MCH 29.3 (25.0-34.0) pg MCHC 31.4 L (32.0-36.0) g/dL RDW Std Deviation 53.1 H (36.4-46.3) fL RDW Coeff of Carmenza 15.7 H (11.5-14.5) % Plt Count 254 (130-400) K/uL MPV 9.0 L (9.4-12.3) fL Immature Gran % (Auto) 0.8 % Neut % (Auto) 74.7 % Lymph % (Auto) 14.0 % [place] % (Auto) 8.1 % Eos % (Auto) 1.9 % Baso % (Auto) 0.5 % Neut # (Auto) 8.07 H (1.4-6.5) K/uL Lymph # (Auto) 1.51 (1.2-3.4) K/uL [place] # (Auto) 0.87 H (0.24-0.82) K/uL Eos # (Auto) 0.21 (0-0.50) K/uL Baso # (Auto) 0.05 (0-0.2) K/uL Immature Gran # (Auto) 0.09 H (0.00-0.02) K/uL PT 11.2 (9.0-12.0) Seconds INR 1.1 (0.9-1.1) APTT 24.8 (21.0-31.0) Seconds PTT Ratio 0.9 Sodium (136-145) mmol/L Potassium (3.5-5.1) mmol/L Chloride (98-107) mmol/L Carbon Dioxide (21-32) mmol/L Anion Gap (3-11) BUN (6-23) mg/dl Creatinine (0.6-1.2) mg/dl Est Cr Clr Drug Dosing ml/min Est GFR ( Amer) ml/min Est GFR (Non-Af Amer) ml/min BUN/Creatinine Ratio (10-20) Glucose (70-99(Fasting)) mg/dl Lactate (0.4-2.0) mmol/L Calcium (8.5-10.1) mg/dl Magnesium 1.8 (1.7-2.4) mg/dl Total Bilirubin 0.3 (0.2-1.0) mg/dl Direct Bilirubin 0.1 (0-0.2) mg/dl AST 8 L (13-39) U/L ALT 12 (7-52) U/L Alkaline Phosphatase 79 (34-104) U/L Troponin I High Sens 29.2 H D (0-14) pg/ml Total Protein 5.7 L (6.0-8.3) gm/dl Albumin 3.2 L (3.4-5.0) gm/dl Procalcitonin (0-0.5) ng/ml Urine Color Urine Appearance (Clear) Urine pH (4.5-7.5) Ur Specific Hessel (1.000-1.030) Urine Protein (Negative) Urine Glucose (UA) (Negative) Urine Ketones (Negative) Urine Blood (Negative) Urine Nitrite (Negative) Urine Bilirubin (Negative) Urine Urobilinogen (Negative) Ur Leukocyte Esterase (Negative) Urine WBC (Auto) (0-5) /hpf Urine RBC (Auto) (0-4) /hpf U Hyaline Cast (Auto) (0-5) /lpf U Epithel Cells (Auto) (0-5) /lpf Urine Bacteria (Auto) (Negative) Amorphous Sediment (None Prsent) Urine Yeast Urine Sperm SARS-CoV-2 (PCR) (Negative) 01/07/22 01/07/22 Range/Units 19:38 19:30 WBC (4.8-10.8) K/ul RBC (3.93-5.22) M/uL Hgb (12.0-16.0) g/dl Hct (34.1-44.9) % MCV (80.0-100.0) fL MCH (25.0-34.0) pg MCHC (32.0-36.0) g/dL RDW Std Deviation (36.4-46.3) fL RDW Coeff of Carmenza (11.5-14.5) % Plt Count (130-400) K/uL MPV (9.4-12.3) fL Immature Gran % (Auto) % Neut % (Auto) % Lymph % (Auto) % [place] % (Auto) % Eos % (Auto) % Baso % (Auto) % Neut # (Auto) (1.4-6.5) K/uL Lymph # (Auto) (1.2-3.4) K/uL [place] # (Auto) (0.24-0.82) K/uL Eos # (Auto) (0-0.50) K/uL Baso # (Auto) (0-0.2) K/uL Immature Gran # (Auto) (0.00-0.02) K/uL PT (9.0-12.0) Seconds INR (0.9-1.1) APTT (21.0-31.0) Seconds PTT Ratio Sodium (136-145) mmol/L Potassium (3.5-5.1) mmol/L Chloride (98-107) mmol/L Carbon Dioxide (21-32) mmol/L Anion Gap (3-11) BUN (6-23) mg/dl Creatinine (0.6-1.2) mg/dl Est Cr Clr Drug Dosing ml/min Est GFR ( Amer) ml/min Est GFR (Non-Af Amer) ml/min BUN/Creatinine Ratio (10-20) Glucose (70-99(Fasting)) mg/dl Lactate (0.4-2.0) mmol/L Calcium (8.5-10.1) mg/dl Magnesium (1.7-2.4) mg/dl Total Bilirubin (0.2-1.0) mg/dl Direct Bilirubin (0-0.2) mg/dl AST (13-39) U/L ALT (7-52) U/L Alkaline Phosphatase (34-104) U/L Troponin I High Sens (0-14) pg/ml Total Protein (6.0-8.3) gm/dl Albumin (3.4-5.0) gm/dl Procalcitonin (0-0.5) ng/ml Urine Color Yellow Urine Appearance Cloudy A (Clear) Urine pH 5.5 (4.5-7.5) Ur Specific Hessel 1.028 (1.000-1.030) Urine Protein 2+ H (Negative) Urine Glucose (UA) Negative (Negative) Urine Ketones Trace H (Negative) Urine Blood Negative (Negative) Urine Nitrite Positive A (Negative) Urine Bilirubin Negative (Negative) Urine Urobilinogen Negative (Negative) Ur Leukocyte Esterase Negative (Negative) Urine WBC (Auto) >30 H (0-5) /hpf Urine RBC (Auto) 0-4 (0-4) /hpf U Hyaline Cast (Auto) 1-5 (0-5) /lpf U Epithel Cells (Auto) 5-10 H (0-5) /lpf Urine Bacteria (Auto) 4+ H (Negative) Amorphous Sediment Present A (None Prsent) Urine Yeast Not Reportable Urine Sperm Not Reportable SARS-CoV-2 (PCR) NEGATIVE (Negative) Diagnostic Findings [place], [place] [phone] XRay Report Patient:JULIA ZHANG Admit Date:01/07/22 MR#:[id number] Address1:[address] [place] [address] Acct ID:[id number] Address2: Date:1935 [facility] Zip:[place] [address] Age:86 Location:ED Sex:F Room/Bed: Att Phy: Diagnosis:BOTH ANKLES ARE WARM AND SWOLLEN HEART RATE 115 Emelia Phy:Joanie Rodrigues MD Service Date:01/07/22 [facility] Phy: Interpreting Phy:Steven Cuba MDAdmit Phy: Ordering Phy:Wai Santos M.D. cc: ~ XR chest 1V portable HISTORY: Sepsis COMPARISON: Chest 12/11/2021. FINDINGS: Rotated study. No pneumothorax. No pleural effusions. There is mild diffuse interstitial thickening. This may be chronic or represent mild congestive change. Left basilar linear densities favor subsegmental atelectasis or scarring. This is similar to the prior study. Otherwise, no new focal lung consolidations. The heart remains enlarged. Old, healed left-sided rib fractures again noted. IMPRESSION: Cardiomegaly with diffuse interstitial thickening. This may represent chronic interstitial change or mild pulmonary vascular congestion. ACT 112: Negative or not required by law. (1) Hypertension Hypertension type: unspecified Qualified Code(s): I10 - Essential (primary) hypertension
[2022-01-08] MEDS ORDERED: ALUMINUM/MAGNESIUM SUSP 30 ML UDC PO PRN (01:41)
[2022-01-08] MEDS ORDERED: GLUCOSE 40% GEL 15 GM TUBE PO PRN (01:41)
[2022-01-08] MEDS ORDERED: POLYETHYLENE (MIRALAX) 17 GM PACK PO PRN (01:41)
[2022-01-08] MEDS ORDERED: DEXTROSE 50% 50 ML SYRINGE IV PRN (01:41)
[2022-01-08] MEDS ORDERED: FUROSEMIDE INJ 20 MG/2 ML VIAL IV ONE (01:41)
[2022-01-08] MEDS ORDERED: GLUCOSE 10 TAB/TUBE PO PRN (01:41)
[2022-01-08] MEDS ORDERED: MAGNESIUM SULFATE / D5W 1 GM/100 ML BAG IV ONE (01:41)
[2022-01-08] MEDS ORDERED: ACETAMINOPHEN 325 MG TAB PO PRN (01:41)
[2022-01-08] MEDS ORDERED: GLUCAGON FOR INJ 1 MG VIAL SQ PRN (01:41)
[2022-01-08] MEDS ORDERED: CARBOHYDRATES FOR HYPOGLYCEMIA PO PRN (01:41)
[2022-01-08] MEDS ORDERED: ONDANSETRON INJ 2 MG/ML 2 ML VIAL IV PRN (01:41)
--- NOTE | 2022-01-08 01:55 | Billing Data ---
Date of Service January 08, 2022 Coding Level of Care Code INT OBSERVATION CARE 50M LVL 2
[2022-01-08] MEDS: LANTUS PER UNIT CHARGE SQ SCH ×3 (02:23→21:13)
[2022-01-08 03:38] LABS: Basophils # (auto) 0.04 K/uL (0-0.2); Basophils % (auto) 0.4 %; Eosinophils # (auto) 0.33 K/uL (0-0.50); Eosinophils % (auto) 3.4 %; Hematocrit (blood only) 38.6 % (34.1-44.9); Hemoglobin 12.4 g/dl (12.0-16.0); Immature Granulocytes # (auto) 0.09 K/uL (0.00-0.02); Immature Granulocytes % (auto) 0.9 %; Lymphocytes # (auto) 1.92 K/uL (1.2-3.4); Mean Corpuscular Hemoglobin 29.7 pg (25.0-34.0); Mean Corpuscular Hgb Conc 32.1 g/dL (32.0-36.0); Mean Corpuscular Volume 92.3 fL (80.0-100.0); Mean Platelet Volume 8.9 fL (9.4-12.3); Monocytes # (auto) 0.74 K/uL (0.24-0.82); Monocytes % (auto) 7.7 %; Neutrophils # (auto) 6.46 K/uL (1.4-6.5); Neutrophils % (auto) 67.6 %; Platelet Count 248 K/uL (130-400); RDW Coefficient of Variation 15.6 % (11.5-14.5); RDW Standard Deviation 52.6 fL (36.4-46.3); Red Blood Count 4.18 M/uL (3.93-5.22); White Blood Count 9.58 K/ul (4.8-10.8)
[2022-01-08 04:03] LABS: Albumin Globulin Ratio 1.5 (0.9-2); Albumin Level 3.3 gm/dl (3.4-5.0); BUN Creatinine Ratio 18.2 (10-20); Bilirubin,Total 0.3 mg/dl (0.2-1.0); Calcium 8.5 mg/dl (8.5-10.1); Creatinine Clr Calc Pharmacy 36.7 ml/min; Est GFR (African American) 47.2 ml/min; Est GFR (Non-African American) 40.8 ml/min; Globulin 2.2 gm/dl (2.5-4.0); Magnesium 1.9 mg/dl (1.7-2.4); Potassium 4.3 mmol/L (3.5-5.1); Total Protein 5.5 gm/dl (6.0-8.3)
--- NOTE | 2022-01-08 07:02 | Hospitalist Progress Note ---
Date of Service January 08, 2022 Assessment & Plan (1) Atrial flutter: Plan: Patient is an 86 yo female with PMHx of DM2, CKIII, HTN, diastolic CHF, atrial fibrillation, frequent falls, fibromyalgia, and HLD admitted to [facility] on 01/07/22. Atrial flutter -Admit to medsurg/tele -EKG in ER: atrial flutter, rate 136, LAD, LVH, no ST elevations -Patient with hx of atrial fibrillation with RVR. On metoprolol 37.5mg po BID at home. -Pt is followed by cardiology, Dr. Russell, in outpatient setting. Per chart review (last office visit note 2 weeks ago, 12/26/21), there is concern for possible tachybrady syndrome given hx of bradycardia when in sinus rhythm. Will consult cardiology. -Last echo in 2019 (both TTE and [facility]) -- LVEF 55-60%, severe cLVH, left atrium severely dilated, moderate mitral annular calcification -Elevated HS-trop at 29.2 on admission. Second [id number]. Consider as demand ischemia secondary to primary problem of atrial flutter. -Goal K > 4 and Mag > 2 -K+ at goal on admission (4.9). Mag 1.8 on admission; 1g Mag ordered. * Recheck CBC, CMP, mag in AM * Follow TTE * Continue home metoprolol and Eliquis. As needed IV Lopressor 5 mg IV (HR >110 bpm) Peripheral Edema/Venous stasis dermatitis to BLE - Peripheral edema most likely secondary to chronic venous insufficiency - Mild patchy erythema of bilateral feet w/ ill-defined margins -Antibiotic treatment deferred on admission due to low suspicion for cellulitis (afebrile, no leukocytosis). -Recommend elevating feet and use of compression stockings -Most recent nephrology note from 09/25/21 reviewed -- noted to have some dependent edema in BLE improving with furosemide. However, furosemide was subsequently discontinued due to pruritus rash thought to be related to the furosemide; medication held as of 11/27/21. Will retrial furosemide 20mg IV tonight Asymptomatic bacteriuria - UA 01/07/22: cloudy, 2+ protein, trace ketones, negative blood, positive nitrite, negative leukocyte esterase, > 30 WBC, 5-10 epithelial, 4+ bacteria - Received cefepime x1 in ER - Will defer further abx treatment at this time - Low threshold to start abx therapy for development of urinary sxs - Urine cx pending Hypertension - Continue home spironolactone, metoprolol - Per chart review, unable to tolerate amlodipine, SOLANGE/ARB, and hydralazine - Managed by nephrology DMII - On glipizide at home; held on admission - Will tx with basal/ISS while in the hospital - Goal 100-140; basal 5u BID; CF 50; carb ratio 20 - BSGs ACHS - Last A1c 6.9% (05/27/21); will recheck A1c with am lab CKD-III - Followed by nephrology - Baseline Cr 1.2 to 1.5 - Cr on admission is 1.26, at baseline - Avoid nephrotoxic agents Secondary Hyperparathyroidism - Continue home calcitriol Fibromyalgia - Continue home amitriptyline Depression - Continue home venlafaxine Hyperlipidemia - Continue home atorvastatin Tobacco use - Patient smokes 6 cigarettes/day - Declines need for nicotine replacement patch on admission Dispo: Admit to [facility]/tele; would expect patient to be discharged back to [facility] in [place] on discharge DVT PPx: Anticoagulated with home Eliquis FENGI: DM/heart healthy diet Code status: DNR/DNI (2) Asymptomatic bacteriuria: (3) Hypertension: (4) Venous stasis dermatitis of both lower extremities: (5) Elevated troponin: (6) Diabetes mellitus, type II: (7) CKD (chronic kidney disease), stage III: (8) Antiplatelet or antithrombotic long-term use: (9) Diastolic CHF: (10) Fibromyalgia: (11) Hyperlipidemia: (12) Depression: Admission and Anticipated Discharge Date Admission Date: January 07, 2022 Review of Systems Review of Systems: All systems reviewed & are unremarkable except as noted in HPI & below Physical Exam Physical Exam: General: Well-appearing, alert, interactive, and in no acute distress. HEENT: Normocephalic, atraumatic. EOM intact. Good conjugate gaze. Nares patent. Moist mucosal membranes. Neck: Supple. No lymphadenopathy. Normal ROM. CV: Regular rate and rhythm. Normal S1 and S2. No murmurs gallops or rubs. Respiratory: Normal respiratory effort. Lungs clear to auscultation bilaterally. No crackles, rhonchi, or wheezes. Abdomen: Soft, nondistended abdomen. No bruits heard on auscultation. No tenderness to deep palpation. No guarding or rebound. Extremities: Capillary refill <2 sec. 2+ dp equal bilaterally. No pedal edema. Neuro: Alert and oriented x3. Skin: Clean, dry, and intact. No rashes, bruises, or erythema. Results & Data Results & Data ([facility]) Vital Signs (Past 12 Hours) Vital Signs Temp Pulse Pulse Pulse Resp BP BP 01/08/22 02:42 36.4 C L 67 18 156/68 H 01/08/22 01:41 01/08/22 00:57 36.4 C L 91 H 18 166/87 H 01/08/22 00:57 36.4 C L 91 H 18 166/87 H 01/08/22 00:01 88 21 156/105 H 01/07/22 23:01 72 19 133/60 01/07/22 21:30 105 H 22 118/85 01/07/22 20:30 121 H 23 01/07/22 20:02 100 H 20 171/116 H 01/07/22 19:45 98 H 18 136/102 H 01/07/22 19:40 106 H 20 136/102 H 01/07/22 18:59 Pulse Ox O2 Del Method 01/08/22 02:42 95 Room Air 01/08/22 01:41 Room Air 01/08/22 00:57 96 Room Air 01/08/22 00:57 96 Room Air 01/08/22 00:01 95 Room Air 01/07/22 23:01 01/07/22 21:30 95 01/07/22 20:30 01/07/22 20:02 97 01/07/22 19:45 94 Room Air 01/07/22 19:40 97 Room Air 01/07/22 18:59 97 Room Air (1) Hypertension Hypertension type: unspecified Qualified Code(s): I10 - Essential (primary) hypertension
[2022-01-08 07:38] LABS: Estimated Average Glucose 171 mg/dl; Hemoglobin A1C 7.6 % (4.5-5.6)
[2022-01-08] MEDS ORDERED: METOPROLOL TARTRATE 25 MG TAB PO SCH (08:00)
[2022-01-08] MEDS: APIXABAN 5 MG TABLET PO SCH ×2 (09:06→21:16)
[2022-01-08] MEDS: VENLAFAXINE HCL XR 150 MG CAPXR PO SCH (09:06)
[2022-01-08] MEDS: SPIRONOLACTONE 100 MG TAB PO SCH (09:07)
[2022-01-08] MEDS: CALCITRIOL 0.25 MCG CAPSULE PO SCH (09:07)
[2022-01-08] MEDS: ATORVASTATIN 10 MG TAB PO SCH (09:07)
[2022-01-08] MEDS: DOCUSATE SODIUM 100 MG CAP PO SCH ×2 (09:08→18:10)
[2022-01-08] MEDS: INSULIN ASPART PER UNIT SC SCH ×4 (10:08→21:14)
--- NOTE | 2022-01-08 10:08 | Progress Note ---
Date of Service January 08, 2022 Assessment & Plan (1) Atrial flutter: Plan: Atrial Flutter * Appreciated cardiology consult: Increasing metoprolol dose. Continue apixaban (Eliquis) for anticoagulation control. * Goal: K>4, Mag >2. Potassium downtrending from 01/08/22 (4.9 to 4.3). Magnesium trending up from 01/08/22 (1.8 to 1.9). Start on oral magnesium supplement. * Lopresser 5mg IV prn for HR >110 bpm EKG. * Serial troponins in the melo zone, considered ruled out. * ECHO from 2019 showed: "LVEF 55-60%, severe cLVH, left atrium severely dilated, moderate mitral annular calcification." Repeat transthoracic echocardiogram ordered. * Cardiology will evaluate for tachybrady syndrome on an outpatient basis. Bilateral Peripheral Edema * Continued low suspicion for bilateral lower extremity cellulitis due to afebrile status and absence of leukocytosis. Hold antibiotic treatment. * Retrial of furosemide 20 mg IV occurred overnight. No rashes appreciated on upper or lower extremities bilaterally. * Continue to elevate feet and use compression stockings. Patient requested to ambulate around her room with assistance. Bacteriuria * Urinalysis from 01/07/22 indicated UTI (2+ protein, trace ketones, negative blood, positive nitrate). Patient treated with cefepime in ED. * Urine and blood cultures pending. Holding antibiotics as patient is asymptomatic. Hypertension * Managed by nephrology. * Continue home spironolactone 100 mg. DM2 * Home glipizide held on admission. Plan to adjust at discharge. Recommend follow up with PCP. * HbA1c (01/08/22) 7.6%. Fasting glucose: 169. * Continue BSG checks, sliding-scale insulin, hypoglycemic protocol CKD-III * Followed by nephrology. * Creatinine 1.21 Secondary Hyperparathyroidism * Continue home calcitriol. Fibromyalgia * Continue home amitriptyline 50 mg. Depression * Continue home venlafaxine 150 mg. Hyperlipidemia * Continue home atorvastatin 10 mg. Tobacco Use * "Patient smokes 6 cigarettes/day. Declines need for nicotine replacement patch on admission." FEN: DM/heart healthy diet Code status: DNR/DNI DVT ppx: Anticoagulated with home Eliquis Held home meds: Glipizide Consults: Cardiology, nephrology PT/OT: On board. Case management: on board Dispo: med/surg telemetry Admission and Anticipated Discharge Date Admission Date: January 07, 2022 Supervising Physician Co-Signing Physician Notes I saw and examined patient. I agree with the assessment/plan as documented by Dr. Mitchell. Patient was admitted with bilateral lower extremity swelling. She has this erythema at the distal aspects of her feet. Capillary refill appears less than 2 seconds but would like to confirm that she has appropriate arterial perfusion with ABIs of the lower extremities. Also need to rule out DVT of lower extremities with bilateral venous Dopplers. I have a lower suspicion for this but given her history of smoking and hypertension as well as diabetes and A. fib I have a low threshold for checking for clot in this case. From a cardiology perspective and rate control perspective for the A-flutter we will appreciate recommendations of care by cardiology and continue with her increased dose of metoprolol. She is currently anticoagulated. Would recommend PT/OT to get her up and moving around. She has received a dose of IV Lasix this morning without any episodes of her rash which was a concern in the past. We will provide her with another dose of IV Lasix 20 mg now given that she has some trace crackles on exam and has some 1+ edema in her bilateral lower extremities. Her BMP and C BC are unremarkable at this time. Hemoglobin A1c is at 7.60 in the outpatient setting may need to consider dietary counseling or modifying her outpatient regimen which is currently glipizide only. Again to confirm, there has been some suspicion that patient has an allergic reaction to Lasix such as a rash but she received a dose of IV Lasix earlier this morning and did well without any allergic reaction so I am comfortable giving her another dose later today. Would like to make sure that this is confirms that in the future patient can be treated with Lasix if needed without concern for an allergic reaction. 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 She was brought into the hospital for management of potential sepsis. The overnight team noted expiratory wheezes and 2+ edema. Today the patient reports bilateral lower leg pain and bilateral foot numbness and tingling. She also mentioned left knee and left hip pain, although she attributes it to osteoarthritis. She is not experiencing tachycardia, palpitations, chest pain, or shortness of breath. The patient is requesting to ambulate around the room. Review of Systems Review of Systems: See HPI. Physical Exam Physical Exam: Constitutional: Generally ill appearing, in no acute distress. Sitting up in bed, slowly falling over to the right side of the bed. CV: Heart sounds distant. Pulmonary valve louder than aortic, tricuspid, mitral. Irregularly irregular rhythm. No murmurs, no clicks. NoJVD noted. Resp: Clear to auscultation bilaterally, no wheezes, rhonchi, rales appreciated. Mild increased work of breathing noted after sitting up and leaning forward. Extremities: Bilateral pitting edema extending correction up the calves. Blanching erythema and warmth of the feet extend from toes to proximal metatarsal. Mildly tender to palpation of the calves and feet. Skin: No rash present on bilateral UE and LE. Pitting edema, erythema, and warm as noted above. Neuro: Alert and oriented x 3. Normal speech. Sensation intact bilaterally. Results & Data ([facility]) Vital Signs (Past 12 Hours) Vital Signs Temp Pulse Pulse Resp BP BP Pulse Ox 01/08/22 08:00 36.5 C 68 18 174/97 H 92 01/08/22 00:52 85 01/08/22 02:42 36.4 C L 67 18 156/68 H 95 01/08/22 01:41 01/08/22 00:57 36.4 C L 91 H 18 166/87 H 96 01/08/22 00:57 36.4 C L 91 H 18 166/87 H 96 01/08/22 00:01 88 21 156/105 H 95 01/07/22 23:01 72 19 133/60 O2 Del Method 01/08/22 08:00 Room Air 01/08/22 00:52 01/08/22 02:42 Room Air 01/08/22 01:41 Room Air 01/08/22 00:57 Room Air 01/08/22 00:57 Room Air 01/08/22 00:01 Room Air 01/07/22 23:01 ECG Indication: tachycardia Rate (beats per minute): 136 Rhythm: atrial flutter Findings: + left axis deviation Comparison ECG Date: from (12/11/21) Change: the following changes noted ("Atrial flutter has replaced atrial fibrillation") Additional Comments: "Left ventricular hypertrophy with repolarization abnormality." Medications Administered Apixaban (Apixaban 5 Mg Tablet) 5 mg PO BID [facility] Stop: 02/07/22 08:59 Last Admin: 01/08/22 09:06 Dose: 5 mg Documented By: LIGIA Atorvastatin Calcium ([facility]vastatin 10 Mg Tab) [facility] Stop: 02/07/22 08:59 Last Admin: 01/08/22 09:07 Dose: 10 mg Documented By: LIGIA Calcitriol (Calcitriol 0.25 Mcg Capsule) 0.25 mcg PO [facility] Stop: 02/07/22 08:59 Last Admin: 01/08/22 09:07 Dose: 0.25 mcg Documented By: LIGIA Docusate Sodium (Docusate Sodium 100 Mg Cap) 200 mg PO BIDM [facility] Stop: 02/07/22 07:59 Last Admin: 01/08/22 09:08 Dose: 200 mg Documented By: LIGIA Insulin Glargine (Lantus Per Unit Charge) 5 units SQ BID [facility] Stop: 02/07/22 01:40 Last Admin: 01/08/22 02:23 Dose: 5 units Documented By: Co-signed By: Metoprolol Tartrate (Metoprolol Tartrate 25 Mg Tab) 37.5 mg PO BIDM [facility] Stop: 02/07/22 07:59 Last Admin: 01/08/22 09:07 Dose: 37.5 mg Documented By: LIGIA Spironolactone (Spironolactone 100 Mg Tab) 100 mg PO DAILY [facility] Stop: 02/07/22 08:59 Last Admin: 01/08/22 09:07 Dose: 100 mg Documented By: [facility] Venlafaxine HCl (Venlafaxine Hcl Xr 150 Mg Capxr) 150 mg PO DAILY [facility] Stop: 02/07/22 08:59 Last Admin: 01/08/22 09:06 Dose: 150 mg Documented By: [facility] ECG Indication: tachycardia Rate (beats per minute): 136 Rhythm: atrial flutter Findings: left axis deviation Comparison ECG Date: from (12/11/21) Change: the following changes noted ("Atrial flutter has replaced atrial fibrillation") Labs CBC & Chem 7: 01/08/22 03:04 01/09/22 08:08 Labs: Short CBC 01/07/22 01/08/22 Range/Units 19:49 03:04 WBC 10.80 9.58 (4.8-10.8) K/ul Hgb 12.6 12.4 (12.0-16.0) g/dl Hct 40.1 38.6 (34.1-44.9) % Plt Count 254 248 (130-400) K/uL BMP 01/07/22 01/08/22 19:51 03:04 Sodium 138 136 Potassium 4.9 4.3 Chloride 106 106 Carbon Dioxide 26 23 BUN 23 22 Creatinine 1.26 H 1.21 H Glucose 172 H 169 H Calcium 8.8 8.5 Liver Function 01/07/22 01/08/22 Range/Units 19:49 03:04 Total Bilirubin 0.3 0.3 (0.2-1.0) mg/dl Direct Bilirubin 0.1 (0-0.2) mg/dl AST 8 L 11 L (13-39) U/L ALT 12 15 (7-52) U/L Alkaline Phosphatase 79 80 (34-104) U/L Albumin 3.2 L 3.3 L (3.4-5.0) gm/dl Urine 01/07/22 Range/Units 19:38 Urine Color Yellow Urine Appearance Cloudy A (Clear) Urine pH 5.5 (4.5-7.5) Ur Specific [place] 1.028 (1.000-1.030) Urine Protein 2+ H (Negative) Urine Glucose (UA) Negative (Negative) Imaging Chest x-ray: Radiologist's impression: "Cardiomegaly with diffuse interstitial thickening. This may represent chronic interstitial change or mild pulmonary vascular congestion."
--- NOTE | 2022-01-08 10:45 | Cardiology Consultation ---
Date of Consultation January 08, 2022 Assessment & Plan (1) Atrial flutter: (2) Elevated troponin: (3) Hypertension: (4) Left ventricular hypertrophy: Plan 1. Atrial flutter: I believe this is an accurate description of recurrent atrial arrhythmia. She clearly had a very irregular and rapid heart rate at the time of admission. In the past she has had rhythms more consistent with atrial fibrillation. Amiodarone was stopped and her recent outpatient visit as she was not symptomatic from her arrhythmia at that time. This may resulted in elevated heart rates over the past few weeks. At this point we will concentrate on adequate rate control. Certainly at rest she seems to have reasonable heart rates even on her current dose of beta-rommel. With activity she undoubtedly has higher rates in this could account for some exercise intolerance such as the dyspnea she described. However, she is also very deconditioned and does little ambulation with her current orthopedic problems. She does has history of bradycardia and some AV blue conduction disease. Whether she will ever transition back to sinus rhythm is unclear. Cycling in and out of atrial arrhythmias may be more problematic and she would likely developed tachy-ryan syndrome requiring a pacemaker. At this point I think we will simply increase her beta-blockade and monitor her rhythm. She will continue systemic anticoagulation 2. Hypertension: Will increase metoprolol. 3. Left ventricular hypertrophy: Likely related to longstanding hypertension. Increase beta-rommel may help. It is possible she has an element of diastolic heart failure with some mild lower extremity edema and mild pulmonary vascular congestion. She did receive some diuretic last evening. I would have a low threshold for some more diuresis. 4. Elevated troponin: Only mildly elevated. She had much more marked elevation the time of her last evaluation. 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 Do not believe I would perform any additional testing in this regard. Adequate heart rate control and blood pressure control will be our goal. History of Present Illness Reason for Consultation: Atrial flutter, tachycardia Requesting Physician: Dia Attending Physician: Ti Perez, History of Present Illness The patient is an 86-year-old woman with a history of persistent atrial fibrillation previously on amiodarone and metoprolol. She lives in an assisted living facility and was noted to have both swelling and erythema involving the lower extremities. Patient also describes some symptoms associated with her lower extremities. She was sent to the emergency room for evaluation. She was noted to have tachycardia and Cardiology was consulted for evaluation. The patient has been unaware of any palpitations. She is aware that she has atrial fibrillation but does not report symptoms associated with the arrhythmia. She is able to ambulate with a walker. She states that some of her ambulation is limited due to left knee discomfort. She has been receiving some therapy for the left knee including injections. However, her symptoms have returned. She does have some dyspnea with ambulation as well. She did not report orthopnea or paroxysmal nocturnal dyspnea. No recent fevers or chills. She claims to be eating and drinking well. Allergies Allergy/AdvReac Type Severity Reaction Status Date / Time duloxetine Allergy Severe Diarrhea Verified 01/07/22 21:40 SOLANGE Inhibitors Allergy Unknown Unknown Verified 01/07/22 21:40 alendronate sodium Allergy Unknown UNKNOWN Verified 01/07/22 21:40 ARB-Angiotensin Receptor Allergy Unknown Unknown Verified 01/07/22 21:40 Antagonist cisapride Allergy Unknown UNKNOWN Verified 01/07/22 21:40 diazepam Allergy Unknown UNKNOWN Verified 01/07/22 21:40 nabumetone Allergy Unknown UNKNOWN Verified 01/07/22 21:40 NSAIDS (Non-Steroidal Allergy Unknown Unknown Verified 01/07/22 21:40 Anti-Inflamma phenazopyridine Allergy Unknown UNKNOWN Verified 01/07/22 21:40 Sulfa (Sulfonamide Allergy Unknown UNKNOWN Verified 01/07/22 21:40 Antibiotics) sulindac Allergy Unknown UNKNOWN Verified 01/07/22 21:40 Home Medications Medication Instructions Recorded Confirmed Type docusate sodium 100 mg capsule 200 mg PO BIDM 12/24/19 01/07/22 History (Stool Softener) atorvastatin 10 mg tablet (Lipitor) 10 mg PO QAM #90 tabs 04/17/21 01/07/22 Rx amitriptyline 50 mg tablet 50 mg PO HS #90 tabs 06/20/21 01/07/22 Rx calcitriol 0.25 mcg capsule 0.25 mcg PO QAM #90 caps 06/23/21 01/07/22 Rx venlafaxine 150 mg 150 mg PO DAILY #90 caps 09/04/21 01/07/22 Rx capsule,extended release 24 hr spironolactone 100 mg tablet 100 mg PO DAILY #90 tabs 09/24/21 01/07/22 Rx glipizide 2.5 mg tablet, extended 2.5 mg PO DAILY #90 tabs 11/25/21 01/07/22 Rx release 24 hr acetaminophen 325 mg tablet 650 mg PO Q6H PRN PAIN/FEVER 01/07/22 01/07/22 History (Tylenol) apixaban 5 mg tablet (Eliquis) 5 mg PO BIDM 01/07/22 01/07/22 History metoprolol tartrate 37.5 mg tablet 37.5 mg PO BIDM 01/07/22 01/07/22 History Patient History Medical History (Updated 01/08/22 @ 10:51 by Hi Russell MD) Asymptomatic bacteriuria Atrial flutter Depression Diastolic CHF Dizziness Fibromyalgia Hyperlipidemia Hypertension Non-functioning kidney Peripheral neuropathy Rapid atrial fibrillation Renal artery stenosis Rib pain Stage 3 chronic kidney disease Stress incontinence Type 2 diabetes mellitus Venous stasis dermatitis of both lower extremities Surgical History History of stent insertion of renal artery (~12/03/16) Family History Father Prostate cancer Sister Breast cancer Brother Lung cancer Sister Lung cancer Denies family history of Ovarian cancer Myocardial infarction Colorectal cancer Social History Smoking Status: Current every day smoker Tobacco Type: Cigarettes Age Started Using Tobacco: 21; packs per day: 0.25; Cigarettes Per Day: 5-6; Second Hand Exposure: Yes; Hx Alcohol Use: No Hx Substance Use: No Preferred Language: Kyrgyz Communication Ability: Effective Visual Impairment: Limited Hearing Ability: Hard of Hearing Auto Tester Required: No Beliefs That Will Affect Care: None marital status: / Current Living Situation: Personal Care Facility Current Living Situation Comment: Lives at [facility], [place] current occupational status: retired current occupation: retired from career working on her farm Feels Safe at Home: Yes Childhood Exposure to Second-Hand Smoke: Yes Dental Care, Regularly: No Physical Activity Frequency: Does not Exercise Seatbelt Use: always Sunscreen Use: No Assistive Devices: Glasses and Walker Review of Systems Review of Systems: Per HPI. Also noted to have frequent falls. These appear to be mechanical in nature. No recent injuries. Physical Exam Physical Exam: She is alert and oriented x3. Mood affect appear normal. She answered all questions appropriately. HEENT: Sclerae are anicteric. Pupils are equal and reactive to light and accommodation. Extraocular movements were intact. Neuro: Cranial nerves intact Lungs: Lungs are clear in the apices with crackles in the base. There are no rales wheezes or rhonchi. She has normal respiratory effort without use of accessory muscles. There is normal pulmonary excursion. Cardiac: The rhythm was irregular. S1 and S2 were normal. There are no murmurs on examination. The PMI was not markedly displaced on palpation. Abdomen: The abdomen was soft and nontender. Extremities: Patient has bilateral radial pulses that are equal in intensity. There is no evidence cyanosis or clubbing. Very mild ankle did edema and erythema bilaterally. Skin: There are no rashes noted on examination today. Results & Data ([facility]) Vital Signs (Past 12 Hours) Vital Signs Temp Pulse Pulse Resp BP BP Pulse Ox 01/08/22 08:00 36.5 C 68 18 174/97 H 92 01/08/22 00:52 85 01/08/22 02:42 36.4 C L 67 18 156/68 H 95 01/08/22 01:41 01/08/22 00:57 36.4 C L 91 H 18 166/87 H 96 01/08/22 00:57 36.4 C L 91 H 18 166/87 H 96 01/08/22 00:01 88 21 156/105 H 95 01/07/22 23:01 72 19 133/60 O2 Del Method 01/08/22 08:00 Room Air 01/08/22 00:52 01/08/22 02:42 Room Air 01/08/22 01:41 Room Air 01/08/22 00:57 Room Air 01/08/22 00:57 Room Air 01/08/22 00:01 Room Air 01/07/22 23:01 Laboratory Results Abnormal Lab Results 01/07/22 01/07/22 01/07/22 19:30 19:38 19:49 WBC RBC Hgb Hct MCV MCH MCHC RDW Std Deviation RDW Coeff of Carmenza Plt Count MPV Immature Gran % (Auto) Neut % (Auto) Lymph % (Auto) [place] % (Auto) Eos % (Auto) Baso % (Auto) Neut # (Auto) Lymph # (Auto) [place] # (Auto) Eos # (Auto) Baso # (Auto) Immature Gran # (Auto) PT INR APTT PTT Ratio Sodium Potassium Chloride Carbon Dioxide Anion Gap BUN Creatinine Est Cr Clr Drug Dosing Est GFR ( Amer) Est GFR (Non-Af Amer) BUN/Creatinine Ratio Glucose POC Glucose Estimat Average Glucose Hemoglobin A1c Lactate Calcium Magnesium 1.8 Total Bilirubin 0.3 Direct Bilirubin 0.1 AST 8 L ALT 12 Alkaline Phosphatase 79 Troponin I High Sens 29.2 H D Total Protein 5.7 L Albumin 3.2 L Globulin Albumin/Globulin Ratio Procalcitonin Urine Color Yellow Urine Appearance Cloudy A Urine pH 5.5 Ur Specific Boyd 1.028 Urine Protein 2+ H Urine Glucose (UA) Negative Urine Ketones Trace H Urine Blood Negative Urine Nitrite Positive A Urine Bilirubin Negative Urine Urobilinogen Negative Ur Leukocyte Esterase Negative Urine WBC (Auto) >30 H Urine RBC (Auto) 0-4 U Hyaline Cast (Auto) 1-5 U Epithel Cells (Auto) 5-10 H Urine Bacteria (Auto) 4+ H Amorphous Sediment Present A Urine Yeast Not Reportable Urine Sperm Not Reportable Nasal Screen MRSA (PCR) SARS-CoV-2 (PCR) NEGATIVE 01/07/22 01/07/22 01/07/22 19:49 19:49 19:49 WBC 10.80 RBC 4.30 Hgb 12.6 Hct 40.1 MCV 93.3 MCH 29.3 MCHC 31.4 L RDW Std Deviation 53.1 H RDW Coeff of Carmenza 15.7 H Plt Count 254 MPV 9.0 L Immature Gran % (Auto) 0.8 Neut % (Auto) 74.7 Lymph % (Auto) 14.0 [place] % (Auto) 8.1 Eos % (Auto) 1.9 Baso % (Auto) 0.5 Neut # (Auto) 8.07 H Lymph # (Auto) 1.51 [place] # (Auto) 0.87 H Eos # (Auto) 0.21 Baso # (Auto) 0.05 Immature Gran # (Auto) 0.09 H PT 11.2 INR 1.1 APTT 24.8 PTT Ratio 0.9 Sodium Potassium Chloride Carbon Dioxide Anion Gap BUN Creatinine Est Cr Clr Drug Dosing Est GFR ( Amer) Est GFR (Non-Af Amer) BUN/Creatinine Ratio Glucose POC Glucose Estimat Average Glucose Hemoglobin A1c Lactate 1.4 Calcium Magnesium Total Bilirubin Direct Bilirubin AST ALT Alkaline Phosphatase Troponin I High Sens Total Protein Albumin Globulin Albumin/Globulin Ratio Procalcitonin Urine Color Urine Appearance Urine pH Ur Specific Boyd Urine Protein Urine Glucose (UA) Urine Ketones Urine Blood Urine Nitrite Urine Bilirubin Urine Urobilinogen Ur Leukocyte Esterase Urine WBC (Auto) Urine RBC (Auto) U Hyaline Cast (Auto) U Epithel Cells (Auto) Urine Bacteria (Auto) Amorphous Sediment Urine Yeast Urine Sperm Nasal Screen MRSA (PCR) SARS-CoV-2 (PCR) 01/07/22 01/07/22 01/08/22 19:49 19:51 01:48 WBC RBC Hgb Hct MCV MCH MCHC RDW Std Deviation RDW Coeff of Carmenza Plt Count MPV Immature Gran % (Auto) Neut % (Auto) Lymph % (Auto) [place] % (Auto) Eos % (Auto) Baso % (Auto) Neut # (Auto) Lymph # (Auto) [place] # (Auto) Eos # (Auto) Baso # (Auto) Immature Gran # (Auto) PT INR APTT PTT Ratio Sodium 138 Potassium 4.9 Chloride 106 Carbon Dioxide 26 Anion Gap 6 BUN 23 Creatinine 1.26 H Est Cr Clr Drug Dosing 31.7 Est GFR ( Amer) 45.0 Est GFR (Non-Af Amer) 38.8 BUN/Creatinine Ratio 18.3 Glucose 172 H POC Glucose 208 H Estimat Average Glucose Hemoglobin A1c Lactate Calcium 8.8 Magnesium Total Bilirubin Direct Bilirubin AST ALT Alkaline Phosphatase Troponin I High Sens Total Protein Albumin Globulin Albumin/Globulin Ratio Procalcitonin < 0.05 Urine Color Urine Appearance Urine pH Ur Specific Boyd Urine Protein Urine Glucose (UA) Urine Ketones Urine Blood Urine Nitrite Urine Bilirubin Urine Urobilinogen Ur Leukocyte Esterase Urine WBC (Auto) Urine RBC (Auto) U Hyaline Cast (Auto) U Epithel Cells (Auto) Urine Bacteria (Auto) Amorphous Sediment Urine Yeast Urine Sperm Nasal Screen MRSA (PCR) SARS-CoV-2 (PCR) 01/08/22 01/08/22 01/08/22 02:46 03:04 03:04 WBC 9.58 RBC 4.18 Hgb 12.4 Hct 38.6 MCV 92.3 MCH 29.7 MCHC 32.1 RDW Std Deviation 52.6 H RDW Coeff of Carmenza 15.6 H Plt Count 248 MPV 8.9 L Immature Gran % (Auto) 0.9 Neut % (Auto) 67.6 Lymph % (Auto) 20.0 [place] % (Auto) 7.7 Eos % (Auto) 3.4 Baso % (Auto) 0.4 Neut # (Auto) 6.46 Lymph # (Auto) 1.92 [place] # (Auto) 0.74 Eos # (Auto) 0.33 Baso # (Auto) 0.04 Immature Gran # (Auto) 0.09 H PT INR APTT PTT Ratio Sodium Potassium Chloride Carbon Dioxide Anion Gap BUN Creatinine Est Cr Clr Drug Dosing Est GFR ( Amer) Est GFR (Non-Af Amer) BUN/Creatinine Ratio Glucose POC Glucose Estimat Average Glucose Hemoglobin A1c Lactate Calcium Magnesium Total Bilirubin Direct Bilirubin AST ALT Alkaline Phosphatase Troponin I High Sens 28.8 H Total Protein Albumin Globulin Albumin/Globulin Ratio Procalcitonin Urine Color Urine Appearance Urine pH Ur Specific Boyd Urine Protein Urine Glucose (UA) Urine Ketones Urine Blood Urine Nitrite Urine Bilirubin Urine Urobilinogen Ur Leukocyte Esterase Urine WBC (Auto) Urine RBC (Auto) U Hyaline Cast (Auto) U Epithel Cells (Auto) Urine Bacteria (Auto) Amorphous Sediment Urine Yeast Urine Sperm Nasal Screen MRSA (PCR) Negative SARS-CoV-2 (PCR) 01/08/22 01/08/22 01/08/22 03:04 03:04 07:47 WBC RBC Hgb Hct MCV MCH MCHC RDW Std Deviation RDW Coeff of Carmenza Plt Count MPV Immature Gran % (Auto) Neut % (Auto) Lymph % (Auto) [place] % (Auto) Eos % (Auto) Baso % (Auto) Neut # (Auto) Lymph # (Auto) [place] # (Auto) Eos # (Auto) Baso # (Auto) Immature Gran # (Auto) PT INR APTT PTT Ratio Sodium 136 Potassium 4.3 Chloride 106 Carbon Dioxide 23 Anion Gap 7 BUN 22 Creatinine 1.21 H Est Cr Clr Drug Dosing 36.7 Est GFR ( Amer) 47.2 Est GFR (Non-Af Amer) 40.8 BUN/Creatinine Ratio 18.2 Glucose 169 H POC Glucose 107 H Estimat Average Glucose 171 Hemoglobin A1c 7.6 H Lactate Calcium 8.5 Magnesium 1.9 Total Bilirubin 0.3 Direct Bilirubin AST 11 L ALT 15 Alkaline Phosphatase 80 Troponin I High Sens Total Protein 5.5 L Albumin 3.3 L Globulin 2.2 L Albumin/Globulin Ratio 1.5 Procalcitonin Urine Color Urine Appearance Urine pH Ur Specific Boyd Urine Protein Urine Glucose (UA) Urine Ketones Urine Blood Urine Nitrite Urine Bilirubin Urine Urobilinogen Ur Leukocyte Esterase Urine WBC (Auto) Urine RBC (Auto) U Hyaline Cast (Auto) U Epithel Cells (Auto) Urine Bacteria (Auto) Amorphous Sediment Urine Yeast Urine Sperm Nasal Screen MRSA (PCR) SARS-CoV-2 (PCR) Diagnostic Findings Chest x-ray at the time of admission revealed interstitial thickening. Possible pulmonary vascular congestion. Echocardiogram 05/25/2019: Normal LV systolic function. Severe left atrial dilation. Moderate mitral annular calcification. Severe LVH PG Care Time/CCT Total # of Minutes Spent Total Time Spent with Patient: Total time spent is greater than 50% in coordination of care (as documented) at patient's floor/unit and/or counseling patient: Coding Level of Care Code 39467 Initial Inpt Care Lvl 3 Diagnoses Atrial flutter I48.92 Elevated troponin R77.8 Hypertension I10 Hypertension type: unspecified Left ventricular hypertrophy I51.7 (1) Hypertension Hypertension type: unspecified Qualified Code(s): I10 - Essential (primary) hypertension
--- NOTE | 2022-01-08 11:29 | Progress Note ---
Date of Service January 08, 2022 Assessment & Plan Admission and Anticipated Discharge Date Admission Date: January 07, 2022 Mariia Alvarez is an 86 year old female with a complex PMHX significant for atrial flutter, diastolic CHF, non-functioning kidney secondary to stage 3 CKD, DMT2, rapid a fib, and fibromyalgia who presented to the ED on 01/07 (1 day ago) for concerns of a tachycardia and bilateral lower extremity erythema. In the ED, she was diagnosed with a UTI. She was brought into the hospital for management of potential sepsis, as she has 2 sources of infection (assuming that is the UTI and cellulitis) The overnight the team reported expiratory wheezes and 2+ edema. This morning the patient reports bilateral lower leg pain, left knee pain, and left hip pain. She notes that the knee and hip pain are due to osteoarthritis. She noted some concern about her "blood count" at home and in the hospital, but seemed to be describing her blood glucose. She is not experiencing tachycardia, palpitations, chest pain, or shortness of breath. Results & Data ([facility]) Vital Signs (Past 12 Hours) Vital Signs Temp Pulse Pulse Resp BP BP Pulse Ox 01/08/22 11:24 36.8 C 68 18 167/110 H 95 01/08/22 08:00 36.5 C 68 18 174/97 H 92 01/08/22 00:52 85 01/08/22 02:42 36.4 C L 67 18 156/68 H 95 01/08/22 01:41 01/08/22 00:57 36.4 C L 91 H 18 166/87 H 96 01/08/22 00:57 36.4 C L 91 H 18 166/87 H 96 01/08/22 00:01 88 21 156/105 H 95 O2 Del Method 01/08/22 11:24 Room Air 01/08/22 08:00 Room Air 01/08/22 00:52 01/08/22 02:42 Room Air 01/08/22 01:41 Room Air 01/08/22 00:57 Room Air 01/08/22 00:57 Room Air 01/08/22 00:01 Room Air
[2022-01-08] MEDS: METOPROLOL TARTRATE 1 MG/ML VIAL IV PRN ×2 (12:06→18:31)
--- NOTE | 2022-01-08 13:35 | Electrocardiogram Report ---
Test Reason : Blood Pressure : / mmHG Vent. Rate : 136 BPM Atrial Rate : 272 BPM P-R Int : 000 ms QRS Dur : 096 ms QT Int : 318 ms P-R-T Axes : 000 -48 160 degrees QTc Int : 478 ms Poor data quality, interpretation may be adversely affected Atrial flutter with 2:1 A-V conduction Left axis deviation Left ventricular hypertrophy with repolarization abnormality Abnormal ECG When compared with ECG of 11-DEC-2021 16:57, Atrial flutter has replaced Atrial fibrillation Confirmed by Hi Russell ([id number]) on 01/08/2022 1:35:13 PM Referred By: REFERRED SELF Confirmed By:Dutch Russell
--- NOTE | 2022-01-08 16:27 | Ultrasound Report ---
BILATERAL LOWER EXTREMITY VENOUS DOPPLER HISTORY: foot swelling, discoloration COMPARISON STUDY: None. FINDINGS: There is normal compressibility, flow, and augmentation within the bilateral lower extremit y deep venous systems. IMPRESSION: No DVT within the right or left lower extremity. ACT 112: Negative or not required by law. Electronically signed by: Steven Cuba M.D. 01/08/2022 4:24 PM
--- NOTE | 2022-01-08 16:37 | XCELERA ---
[id number]
[2022-01-08 17:16] LABS: A calco-baum cmplx NotReported Not Detected (NotDetected); Bact fragilis Not Reported Not Detected (NotDetected); C auris Not Reported Not Detected (NotDetected); Calbicans Not Reported Not Detected (NotDetected); Candida glabrata Not Reported Not Detected (NotDetected); Candida krusei Not Reported Not Detected (NotDetected); Cneoformans/gatti Not Reported Not Detected (NotDetected); Cparapsilosis Not Reported Not Detected (NotDetected); Ctropicalis Not Reported Not Detected (NotDetected); E cloacae compx Not Reported Not Detected (NotDetected); Efaecalis Not Reported Not Detected (NotDetected); Efaecium Not Reported Not Detected (NotDetected); Enterobacterales Not Reported Not Detected (NotDetected); Escherichia coli Not Reported Not Detected (NotDetected); H influenzae Not Reported Not Detected (NotDetected); K aerogenes Not Reported Not Detected (NotDetected); Koxytoca Not Reported Not Detected (NotDetected); Kpneumoniae grp Not Reported Not Detected (NotDetected); Lmonocyt Not Reported Not Detected (NotDetected); N meningitidis Not Reported Not Detected (NotDetected); P aeruginosa Not Reported Not Detected (NotDetected); Proteus spp Not Reported Not Detected (NotDetected); Salmonella spp Not Reported Not Detected (NotDetected); Smarcescens Not Reported Not Detected (NotDetected); Staph lugdunensis Not Reported Not Detected (NotDetected); Staph spp. Not Reported DETECTED (NotDetected); Staphaureus Not Reported Not Detected (NotDetected); Staphepi Not Reported DETECTED (NotDetected); Stenmaltophilia Not Reported Not Detected (NotDetected); Strep agal(GrpB) Not Reported Not Detected (NotDetected); Strep pneum Not Reported Not Detected (NotDetected); Strep pyog (GrpA) Not Reported Not Detected (NotDetected); Strep spp Not Reported Not Detected (NotDetected)
[2022-01-08 17:20] LABS: mecAC Resistant Gene DETECTED (NotDetected)
[2022-01-08 17:21] LABS: Staphylococcus epidermidis DETECTED (NotDetected); Staphylococcus spp. DETECTED (NotDetected)
--- NOTE | 2022-01-08 18:01 | Ultrasound Report ---
ULTRASOUND ANKLE- BRACHIAL INDICES CLINICAL HISTORY: Foot pain. Discoloration. FINDINGS: Ankle-brachial indices were performed in ultrasound. Right brachial pressure measures 103 a nd left brachial pressure measures 146. Pressures in the right posterior tibial artery measure 91 for STEVE 0.62, and pressures in the right dorsalis pedis measure 129 for an STEVE of 0.88. Pressures in the left posterior tibial artery measure 95 for STEVE 0.65, and pressures the left dorsalis pedis measure 82 for an STEVE of 0.56. IMPRESSION: Ankle-brachial indices as above. Dictated: 01/08/2022 4:22 PM Transcribed: 01/08/2022 5:14 PM Sharon [id number] CHARITY_Tami Electronically signed by: Wai Villanueva M.D. 01/08/2022 6:00 PM
[2022-01-08] MEDS: FUROSEMIDE INJ 20 MG/2 ML VIAL IV ONE ×2 (18:29→18:40)
[2022-01-08] MEDS ORDERED: AMITRIPTYLINE HCL 50 MG TAB PO SCH (21:00)
[2022-01-08] MEDS: METOPROLOL TARTRATE 50 MG TAB PO SCH (21:19)
--- NOTE | 2022-01-09 08:22 | Progress Note ---
Date of Service January 09, 2022 Assessment & Plan (1) Atrial flutter: Plan: Atrial Flutter * Appreciated cardiology consult: Increasing metoprolol dose. Continue apixaban (Eliquis) for anticoagulation control. * TTE Ordered: LVEF: 55-60%. "Left ventricular systolic function is normal. Severe concentric left ventricular hypertrophy. Left ventricular cavity is small. Left atrium is moderately dilated. Mild mitral annular calcification. Mild mitral regurgitation. Right ventricular systolic pressure normal." Echo unchanged compared to ECHO from 2019. * Goal: K>4, Mag >2. Mag was 1.9 on 01/08/22. Oral magnesium supplement administered. * Lopresser 5mg IV prn for HR >110 bpm EKG. * Cardiology will follow up on outpatient basis. Bilateral Peripheral Edema * Bilateral venous Doppler ordered: "No DVT within the right or left lower extremity." * STEVE ordered due to patient's report of bilateral foot numbness and tingling diminished pedal pulses, and PMHX of diastolic CHF. STEVE results: * Continued low suspicion for bilateral lower extremity cellulitis due to afebrile status, absence of leukocytosis, and resolving symptoms without further antibiotic treatment. Hold antibiotic treatment. * Retrial of furosemide 20 mg IV occurred overnight. No rashes appreciated on upper or lower extremities bilaterally. * Continue to elevate feet and use compression stockings. Patient requested to ambulate around her room with assistance. Bacteriuria * Urine cultures grew gram negative bacilli and gamma strep (not enterococcus).Likely due to sample contamination, as patient is asymptomatic. * Blood culture: Draw #1 showed gram positive cocci, draw #2 was negative for aerobic and anaerobic growth. Clinical suspicion for sepsis is low, as patient is afebrile and leukocytosis and absent. Repeat cultures ordered. * Urinalysis from 01/07/22 indicated UTI (2+ protein, trace ketones, negative blood, positive nitrate). Patient treated with 1 dose IV cefepime in ED. Hypertension * Managed by nephrology. * Continue home spironolactone 100 mg. DM2 * Home glipizide held on admission. Continue BSG checks, sliding-scale insulin, hypoglycemic protocol. * Fasting glucose (01/09/22): 122. * Plan to adjust at discharge. Recommend follow up with PCP. CKD-III * Followed by nephrology. * Creatinine (01/09/22): 1.25 Secondary Hyperparathyroidism * Continue home calcitriol. Fibromyalgia * Continue home amitriptyline 50 mg. Depression * Continue home venlafaxine 150 mg. Hyperlipidemia * Continue home atorvastatin 10 mg. Tobacco Use * "Patient smokes 6 cigarettes/day. Declines need for nicotine replacement patch on admission." FEN: DM/heart healthy diet Code status: DNR/DNI DVT ppx: Anticoagulated with home Eliquis Held home meds: Glipizide Consults: Cardiology, nephrology PT/OT: On board. Case management: on board Dispo: med/surg telemetry Admission and Anticipated Discharge Date Admission Date: January 07, 2022 Mariia Alvarez is an 86 year old female with a complex PMHX significant for atrial flutter, diastolic CHF, non-functioning kidney secondary to stage 3 CKD, DMT2, rapid a fib, and fibromyalgia who presented to the ED on 01/07 (2 days ago) for concerns of a tachycardia and bilateral lower extremity erythema. She was brought into the hospital for management of potential sepsis. She is doing well today. She does not report any chest pain, shortness of breath, abdominal pain, or urinary symptoms. She notes that her feet look better today because they are less painful, erythematous, and edematous. She states that she did not get to ambulate yesterday and is eager to do so today. Review of Systems Review of Systems: See HPI. Physical Exam Physical Exam: Constitutional: Generally ill appearing, in no acute distress. Sitting up in bed, slowly falling over to the right side of the bed. CV: Heart sounds distant. Pulmonary valve louder than aortic, tricuspid, mitral. Irregularly irregular rhythm. No murmurs, no clicks. NoJVD noted. Resp: Clear to auscultation bilaterally, no rhonchi, wheezes, or rales appreciated. Mild increased work of breathing noted after sitting up and leaning forward. Extremities: Bilateral mild pitting edema extending custodial up the calves. Mild erythema and warmth of toes, contained to the phalanges, improved from 01/08/22. Skin: No rash present on bilateral UE and LE. Pitting edema, erythema, and warm as noted above. Neuro: Alert and oriented x 3. Normal speech. Sensation intact bilaterally. Results & Data ([facility]) Vital Signs (Past 12 Hours) Vital Signs Temp Pulse Pulse Resp BP Pulse Ox O2 Del Method 01/09/22 02:17 36.4 C L 62 20 104/67 97 Room Air 01/08/22 23:49 Room Air 01/08/22 23:48 95 H 01/08/22 23:32 36.7 C 79 18 132/69 94 Room Air
[2022-01-09] MEDS: DOCUSATE SODIUM 100 MG CAP PO SCH (09:08)
[2022-01-09] MEDS: INSULIN ASPART PER UNIT SC SCH ×2 (09:08→12:43)
[2022-01-09] MEDS: SPIRONOLACTONE 100 MG TAB PO SCH (09:09)
[2022-01-09] MEDS: METOPROLOL TARTRATE 50 MG TAB PO SCH (09:09)
[2022-01-09] MEDS: ATORVASTATIN 10 MG TAB PO SCH (09:09)
[2022-01-09] MEDS: VENLAFAXINE HCL XR 150 MG CAPXR PO SCH (09:09)
[2022-01-09] MEDS: APIXABAN 5 MG TABLET PO SCH (09:09)
[2022-01-09] MEDS: CALCITRIOL 0.25 MCG CAPSULE PO SCH (09:09)
[2022-01-09] MEDS: LANTUS PER UNIT CHARGE SQ SCH (09:09)
[2022-01-09 09:16] LABS: BUN Creatinine Ratio 18.4 (10-20); Creatinine Clr Calc Pharmacy 35.6 ml/min; Est GFR (African American) 45.4 ml/min; Est GFR (Non-African American) 39.2 ml/min; Potassium 4.4 mmol/L (3.5-5.1)
[2022-01-09] MEDS ORDERED: FUROSEMIDE INJ 20 MG/2 ML VIAL IV SCH (10:45)
--- NOTE | 2022-01-09 16:38 | Discharge Summary ---
Date of Service January 09, 2022 Admission HPI Per Admitting Provider Patient is an 86 yo female with PMHx of DM2, CKIII, HTN, diastolic CHF, atrial fibrillation, frequent falls, fibromyalgia, and HLD who presented to [facility] on 01/07/22 due to BLE erythema, swelling, and pain x1 week. Patient is a poor historian; no family at bedside. Patient is unable to describe pain of lower extremities. She does report similar episodes in the past. Patient additionally reports generalized weakness which is chronic and unchanged from baseline. Also with chronic balance problems "for years" which is unchanged from baseline. She ambulates with walker. While in the ER, patient was noted to be in a-flutter with rate of 136 bpm. She does note a hx of atrial fibrillation and states that she "never feels anything abnormal." Home medications include anticoagulation with Eliquis and rate control with metoprolol. Patient states that she did not have any feeling of tachycardia, palpitations, chest pain, nor SOB. Also denies abdominal pain, nausea, vomiting, fever, chills, cough, and urinary symptoms including hematuria, dysuria, urinary frequency, and urinary retention Admission Exam Per Admitting Provider GENERAL: No acute distress. Well developed and well nourished. Vital signs reviewed as above. EYES: PERRL. EOMI. Anicteric sclerae. HENT: Moist mucous membranes. RESPIRATORY: Clear to auscultation bilaterally. No wheezing, rales, or rhonchi. CARDIOVASCULAR: Regular rate. Irregularly irregular rhythm. No murmurs. No JVD. ABDOMEN: Soft, non-tender and non-distended. Normal bowel sounds. EXTREMITIES: 3+ pitting edema to bilateral lower extremities with associated mild tenderness to palpation. No calf tenderness. SKIN: Warm, dry. Mild patchy erythema to bilateral feet without well defined borders, consistent with chronic venous stasis changes. NEUROLOGIC: A/O x3. Normal speech. No focal neurological deficits. PSYCHIATRIC: Cooperative. Appropriate mood and affect. Principal Diagnosis Atrial fibrillation, atrial flutter Discharge Exam General: Well-appearing, alert, interactive, and in no acute distress. HEENT: Normocephalic, atraumatic. EOM intact. Good conjugate gaze. Nares patent. Moist mucosal membranes. Neck: Supple. No lymphadenopathy. Normal ROM. CV: Regular rate. Irregular rhythm. Normal S1 and S2. No murmurs, gallops, or rubs. Respiratory: Normal respiratory effort. Lungs clear to auscultation bilaterally. No crackles, rhonchi, or wheezes. Abdomen: Soft, nondistended abdomen. No bruits heard on auscultation. No tenderness to deep palpation. No guarding or rebound. Extremities: Capillary refill <2 sec. 2+ dp equal bilaterally. No pedal edema. Neuro: Alert and oriented x3. Skin: Clean, dry, and intact. No rashes, bruises, or erythema. Discharge Data Allergies Allergy/AdvReac Type Severity Reaction Status Date / Time duloxetine Allergy Severe Diarrhea Verified 01/07/22 21:40 SOLANGE Inhibitors Allergy Unknown Unknown Verified 01/07/22 21:40 alendronate sodium Allergy Unknown UNKNOWN Verified 01/07/22 21:40 ARB-Angiotensin Receptor Allergy Unknown Unknown Verified 01/07/22 21:40 Antagonist cisapride Allergy Unknown UNKNOWN Verified 01/07/22 21:40 diazepam Allergy Unknown UNKNOWN Verified 01/07/22 21:40 nabumetone Allergy Unknown UNKNOWN Verified 01/07/22 21:40 NSAIDS (Non-Steroidal Allergy Unknown Unknown Verified 01/07/22 21:40 Anti-Inflamma phenazopyridine Allergy Unknown UNKNOWN Verified 01/07/22 21:40 Sulfa (Sulfonamide Allergy Unknown UNKNOWN Verified 01/07/22 21:40 Antibiotics) sulindac Allergy Unknown UNKNOWN Verified 01/07/22 21:40 Consultations 01/07/22 21:04 ED Decision to Admit Stat 01/08/22 01:41 Consult Cardiology Routine Ordered Studies 01/08/22 14:13 US ankle brachial index [US ankle/brachial index ltd] Routine US venous doppler LE Routine Hospital Course (1) Atrial flutter: Patient is an 86 yo female with PMHx of DM2, CKIII, HTN, diastolic CHF, atrial fibrillation, frequent falls, fibromyalgia, and HLD admitted to [facility] on 01/07/22. Atrial flutter -Admit to medsurg/tele -EKG in ER: atrial flutter, rate 136, LAD, LVH, no ST elevations -Patient with hx of atrial fibrillation with RVR. On metoprolol 37.5mg po BID at home. -Pt is followed by cardiology, Dr. Russell, in outpatient setting. Per chart review (last office visit note 2 weeks ago, 12/26/21), there is concern for possible tachybrady syndrome given hx of bradycardia when in sinus rhythm. Will consult cardiology. -Last echo in 2019 (both [facility] and [facility]) -- LVEF 55-60%, severe cLVH, left atrium severely dilated, moderate mitral annular calcification -Elevated HS-trop at 29.2 on admission. Second [id number]. Consider as demand ischemia secondary to primary problem of atrial flutter. -Goal K > 4 and Mag > 2 -K+ at goal on admission (4.9). Mag 1.8 on admission; 1g Mag ordered. -TTE on this admission showed: EF 55-60%. Severe concentric LVH, moderately dilated left atrium, mild MR, normal right ventricular systolic pressure. * Increased home metoprolol (now 50 mg bid) and Eliquis. Peripheral Edema/Venous stasis dermatitis to BLE - Peripheral edema most likely secondary to chronic venous insufficiency - Mild patchy erythema of bilateral feet w/ ill-defined margins -Antibiotic treatment deferred on admission due to low suspicion for cellulitis (afebrile, no leukocytosis). -Recommend elevating feet and use of compression stockings -Most recent nephrology note from 09/25/21 reviewed -- noted to have some dependent edema in BLE improving with furosemide. However, furosemide was subsequently discontinued due to pruritus rash thought to be related to the furosemide; medication held as of 11/27/21. Will retrial furosemide 20mg IV tonight. -Sent home on p.o. furosemide 40mg daily. Asymptomatic bacteriuria - UA 01/07/22: cloudy, 2+ protein, trace ketones, negative blood, positive nitrite, negative leukocyte esterase, > 30 WBC, 5-10 epithelial, 4+ bacteria - Received cefepime x1 in ER - Will defer further abx treatment at this time - Low threshold to start abx therapy for development of urinary sxs - Urine cx positive for alpha-hemolytic strep but deferred treatment as patient clinically asymptomatic. Hypertension - Continue home spironolactone. Metoprolol increased to 50 mg bid. - Per chart review, unable to tolerate amlodipine, SOLANGE/ARB, and hydralazine - Managed by nephrology DMII - On glipizide at home; held on admission. - Will tx with basal/ISS while in the hospital - Goal 100-140; basal 5u BID; CF 50; carb ratio 20 - BSGs ACHS - Last A1c 6.9% (05/27/21); will recheck A1c with am lab -Recommend discontinuing in favor of dual therapy (SGLT2-inhibitor+ GLP1-RA). CKD-III - Followed by nephrology - Baseline Cr 1.2 to 1.5 - Cr on admission is 1.26, at baseline - Avoid nephrotoxic agents Secondary Hyperparathyroidism - Continue home calcitriol Fibromyalgia - Continue home amitriptyline Depression - Continue home venlafaxine Hyperlipidemia - Continue home atorvastatin Tobacco use - Patient smokes 6 cigarettes/day - Declines need for nicotine replacement patch on admission (2) Asymptomatic bacteriuria: (3) Hypertension: (4) Venous stasis dermatitis of both lower extremities: (5) Elevated troponin: (6) Diabetes mellitus, type II: (7) CKD (chronic kidney disease), stage III: (8) Antiplatelet or antithrombotic long-term use: (9) Diastolic CHF: (10) Fibromyalgia: (11) Hyperlipidemia: (12) Depression: Total Time Total Time Spent Total Time Spent (In Minutes): 20 Discharge Plan Discharge Items Patient Disposition: Personal Group Home Reason For Visit: A-FLUTTER Discharge Diagnosis: Atrial fibrillation with flutter Condition on Discharge: Fair Activity: Per Instructions section Non-emergency contact: Primary Care Provider Call non-emergency contact if: you have any medication questions and your symptoms worsen Follow-up/Referrals: Joanie Rodrigues MD [Primary Care Provider] - Diet: Regular Addtl Attending Provider Instructions: You were admitted to the hospital for atrial fibrillation with flutter. You were treated with rate control medicines and medicines to help remove extra fluid from your legs. A discharge summary will be sent to your primary care physician to ensure continuity of care. Please bring this discharge summary with you to your next office appointment so that your provider can review it at that time. Follow-up appointments: * Make a follow-up appointment with your PCP within the next week. It is very important that you follow up with them shortly after discharge from the hospital. * Keep all your follow-up appointments as already scheduled. If you cannot make an appointment, notify your provider. Medications: Your medication list has been reviewed and reconciled upon discharge to ensure accuracy and continuity of care. An updated list of all your medications is included with your hospital discharge paperwork. Please review this list closely, and make note of any changes. * We sent a new medication called furosemide to your pharmacy. Take 40 mg once daily. * We increased your dose of metoprolol, from 37.5 mg twice a day to 50 mg twice daily. Take your medications as instructed; do not skip a dose of your medicines. Make sure all of your doctors know every medicine you are taking (including over-the- counter medicines, vitamins, and supplements). Call your primary care provider before taking any new medicines (including [id number] medicines, vitamins, and supplements), because some of these may interact with your current medications, or may make your symptoms worse. Tell your primary care provider if you cannot afford your medications. CONTACT YOUR PRIMARY CARE PROVIDER if you experience any of the following: * Lightheadedness, or dizziness * Chest pain or heart palpitations * Difficulty following your treatment plan, or difficulty taking medications CALL 911 OR GO TO THE EMERGENCY DEPARTMENT if you experience any of the following: * Sudden, severe abdominal pain or nausea/vomiting * Severe chest pain, or chest pain that radiates (moves) to your jaw or arm * Sudden, severe shortness of breath or difficulty breathing Thank you for allowing us to participate in your care. Pending Studies at Discharge: No Stand-Alone Forms: My [employer], Smoking Cessation Skilled Items Patient informed of condition?: Yes DNR: No Discharge Level of Care: Other Communicable Disease: No Discharge Prognosis: Stable Lines: None Urinary Catheter: No Medications and DC Order Prescriptions: New metoprolol tartrate 50 mg Tablet 50 mg PO BID 30 Days Qty: 60 0RF furosemide 40 mg tablet 40 mg PO DAILY 30 Days Qty: 30 0RF Continued atorvastatin [Lipitor] 10 mg tablet 10 mg PO QAM Qty: 90 3RF amitriptyline 50 mg tablet 50 mg PO HS Qty: 90 3RF calcitriol 0.25 mcg capsule 0.25 mcg PO QAM Qty: 90 3RF venlafaxine 150 mg capsule,extended release 24hr 150 mg PO DAILY Qty: 90 3RF spironolactone 100 mg tablet 100 mg PO DAILY Qty: 90 3RF glipizide 2.5 mg tablet extended release 24hr 2.5 mg PO DAILY Qty: 90 3RF docusate sodium [Stool Softener] 100 mg Capsule 200 mg PO BIDM acetaminophen [Tylenol] 325 mg Tablet 650 mg PO Q6H MDD 3 GRAMS/24 HOURS PRN (Reason: PAIN/FEVER) Eliquis 5 mg tablet 5 mg PO BIDM Discontinued metoprolol tartrate 37.5 mg tablet 37.5 mg PO BIDM Discharge Orders: Discharge Order (Routine); Ordered 01/09/22 Ordered By: Charissa Ramirez/Other Patient Handouts: Diabetes and Heart Disease, Low-Salt Choices, Managing Type 2 Diabetes, Eating Heart-Healthy Foods Admission Data Admit Date/Time: 01/07/22 23:22 Attending Provider: Yifan Woo Admit Provider: Zoraida Alvares Primary Care Provider: Joanie Rodrigues Other Providers: Joan Narayan ; Ovidio Ross Other Interventions: Discharge Summary Assessment (RN) Last Done: 01/09/22 12:38 Supervising Physician Co-Signing Physician Notes Attending attestation Pt seen and examined in concert with Dr. Mitchell. In agreement with the documented findings as noted in the resident documentation with any exceptions or additions as noted here. Improvement in b/l edema with venous stasis dermatitis following ongoing diuresis on furosemide. No palpitations or chest pain reported. Atrial flutter - metoprolol 50mg BID for rate control with good impact, continue apixaban for anticoagulation. Follow up with cardiology. Peripheral edmea w/ venous stasis dermatitis - likely worsened 2/2 atrial flutter episodes - per cardiology recommendation, will continue furosemide 40mg daily as has tolerated well while inpatient. Continue spironolactone Asymptomatic bacturia - no signs/symptoms present, monitor for change and treat accordingly in outpatient if present Else see resident documentation as noted. Total attending physician time spent with this patient's care on the day of discharge: 35 minutes. Resident Activity Tracking Resident Involvement: Resident Care Provided Care Provided: Adult Hospital Medicine
== END 2022-01-09 14:06 | disposition home or self-care (01) ==
LOC: 2N 18:23 → ED 18:23 → SUATTDRO 23:22 → 2N 01-08 00:29

== ENCOUNTER 2022-04-18 13:24 | Inpatient (IN) ==
[2022-04-18] MEDS ORDERED: ALBUT/IPRATROP 3MG/0.5MG NEB 3 ML VIAL NEB STA ×2 (13:41→15:53)
[2022-04-18] MEDS ORDERED: METOPROLOL TARTRATE 1 MG/ML VIAL IV STA (13:41)
[2022-04-18 13:58] LABS: Hematocrit (blood only) 47.4 % (34.1-44.9); Hemoglobin 15.2 g/dl (12.0-16.0); Mean Corpuscular Hgb Conc 32.1 g/dL (32.0-36.0); Mean Corpuscular Volume 90.3 fL (80.0-100.0); Mean Platelet Volume 10.7 fL (9.4-12.3); Platelet Count 234 K/uL (130-400); RDW Coefficient of Variation 16.4 % (11.5-14.5); RDW Standard Deviation 54.3 fL (36.4-46.3); Red Blood Count 5.25 M/uL (3.93-5.22); White Blood Count 9.28 K/ul (4.8-10.8)
--- NOTE | 2022-04-18 13:59 | XRay Report ---
XR chest 1V portable CLINICAL HISTORY: Dyspnea TECHNIQUE: Single frontal radiograph of the chest was obtained. Comparison: Comparison is made to chest radiograph 01/07/2022 FINDINGS: No lines and tubes are seen. Cardiomegaly is noted. Reticular interstitial opacities are seen. No flakito dence of pleural effusion or pneumothorax. IMPRESSION: Interstitial thickening is noted. ACT 112: Negative or not required by law. Electronically signed by: Wong Ramos M.D. 04/18/2022 1:58 PM
[2022-04-18 14:04] LABS: Partial Thromboplastin Ratio 0.8; Partial Thromboplastin Time 21.9 Seconds (21.0-31.0); Prothrombin Time 10.9 Seconds (9.0-12.0)
[2022-04-18 14:09] LABS: Albumin Globulin Ratio 1.2 (0.9-2); Albumin Level 4.5 gm/dl (3.4-5.0); Bilirubin,Total 0.3 mg/dl (0.2-1.0); Est GFR (Non-African American) 75.1 ml/min; Globulin 3.8 gm/dl (2.5-4.0); Magnesium 2.1 mg/dl (1.7-2.4); Potassium 4.1 mmol/L (3.5-5.1); Total Protein 8.3 gm/dl (6.0-8.3)
[2022-04-18 14:12] LABS: Basophils # (auto) 0.03 K/uL (0-0.2); Basophils % (auto) 0.3 %; Eosinophils # (auto) 0.17 K/uL (0-0.50); Eosinophils % (auto) 1.8 %; Immature Granulocytes # (auto) 0.07 K/uL (0.00-0.02); Immature Granulocytes % (auto) 0.8 %; Lymphocytes # (auto) 1.13 K/uL (1.2-3.4); Lymphocytes % (auto) 12.2 %; Monocytes # (auto) 0.74 K/uL (0.24-0.82); Neutrophils # (auto) 7.14 K/uL (1.4-6.5); Neutrophils % (auto) 76.9 %
[2022-04-18 14:16] LABS: Troponin I High Sensitivity 22.4 pg/ml (0-14)
[2022-04-18] MEDS ORDERED: dilTIAZem HCl 5 MG/ML 5 ML VIAL IV STA (14:58)
[2022-04-18] MEDS ORDERED: STAT IV Infusion **Titration per Protocol STA (14:58)
[2022-04-18 15:15] LABS: Influenza A virus by PCR Negative (Neg); Influenza B virus by PCR Negative (Neg); RSV by PCR Negative (Neg); SARS CoV2 RNA(COVID-19) Ceph NEGATIVE (Negative)
[2022-04-18] MEDS ORDERED: methylPREDNISolone 125 MG/2 ML VIAL IV STA (15:53)
--- NOTE | 2022-04-18 15:58 | Emergency Department Note ---
Impression & Plan Atrial fibrillation with RVR, Acute exacerbation of chronic obstructive pulmonary disease, Cough ED Provider Note Provider: Von Donnelly MD DATE OF SERVICE: 04/18/2022 CHIEF COMPLAINT: Cough, shortness of breath HISTORY OF PRESENT ILLNESS: Patient is a 86-year-old female history of atrial fibrillation/flutter, UTI, diabetes, CKD, and heart failure presenting here via ambulance from her nursing facility today. Had a nebulizer in route. Evidently been sick for least a few days although she is not the best historian. Patient denies any significant new leg swelling. Was a little bit of pain in her chest with coughing. Denies significant abdominal pain or nausea or vomiting. Matt perez did not have her morning meds that she does not take them on an empty stomach. PAST MEDICAL HISTORY: As noted above MEDICATIONS: Reviewed home medications SOCIAL HISTORY: Smoker, lives at nursing facility PHYSICAL EXAM: GENERAL: alert and oriented in no acute distress on stretcher, occasionally coughing Head: normocephalic and atraumatic EYES: No injection, discharge or icterus. NECK: Trachea midline. ENT: Mucous membranes pink and moist. Pharynx without erythema or exudate. LUNGS: Airway patent. No retractions. Breath sounds wheezy HEART: Irregular regular rate and rhythm. Mild midsternal chest wall tenderness without crepitus ABDOMEN: Soft and non-tender, without guarding or rebound. SKIN: Acyanotic, warm, dry, without rashes EXTREMITIES: Trace bilateral lower extremity edema. No significant tenderness on exam. NEUROLOGICAL: No focal deficits. No aphasia. No facial droop or slurred speech. EK bpm atrial fibrillation with rapid ventricular spots with incomplete right bundle branch block. No acute ST segment elevation with some nonspecific inferior lateral ST depression. QTc 436. CONTINUOUS CARDIAC MONITORING: was ordered and showed a heart rate of 90s-130s bpm in atrial fibrillation Patient's laboratory studies and imaging reviewed. Differential includes Reactive airway disease, pneumonia, pneumothorax, COPD, CHF, infections, cardiac ischemia, pulmonary embolism, musculoskeletal, gastrointestinal, as well as other pathologies. IMPRESSION/MEDICAL DECISION MAKING: COVID and flu testing negative. Patient with worsening shortness of breath. On Eliquis although missed morning dose low suspicion for VTE with this. Rapid A. fib may be contributing. Given some IV metoprolol. Limited improvement with this. Given her wheezing is started on DuoNeb with some improvement. Later given some additional IV steroids as well as additional DuoNeb. Patient is a smoker. No evidence of pneumonia on x-ray per review and radiology report. Blood work without evidence of significant anemia or leukocytosis and I doubt sepsis picture. Minimally elevated troponin less than previous and I doubt ACS. Little bit of chest wall tenderness likely from coughing and increased work of breathing. No significant liver dysfunction or electrolyte abnormality noted. No severe renal dysfunction noted today. Patient started IV diltiazem drip after bolus after minimal improvement with a dose of IV metoprolol. Family later at bedside. Believe likely a large component of COPD but also exacerbated by underlying A. fib RVR. Will bring in for further treatment. Hospitalist to be contacted. DIAGNOSIS: Shortness of breath, COPD exacerbation, atrial fibrillation with rapid ventricular response DISPOSITION: Hospitalist will evaluate Patient was agreeable with this plan. Family at bedside as well. Critical Care I have personally spent 33 minutes of critical care time in the direct management of this patient. This includes bedside care, interpretation of diagnostic studies, and testing, discussion with consultants, patient, and family members, and other required patient management activities. These 33 minutes is in excess of all separately billable procedures. Past Med/Surg History Medical History Asymptomatic bacteriuria Atrial flutter Depression Diastolic CHF Dizziness Fibromyalgia Hyperlipidemia Hypertension Non-functioning kidney Peripheral neuropathy Rapid atrial fibrillation Renal artery stenosis Rib pain Stage 3 chronic kidney disease Stress incontinence Type 2 diabetes mellitus Venous stasis dermatitis of both lower extremities Surgical History History of stent insertion of renal artery (~12/03/16) Family History Father Prostate cancer Sister Breast cancer Brother Lung cancer Sister Lung cancer Denies family history of Ovarian cancer Myocardial infarction Colorectal cancer Social History Smoking Status: Current every day smoker Tobacco Type: Cigarettes Age Started Using Tobacco: 21; packs per day: 0.25; Cigarettes Per Day: 5-6; Second Hand Exposure: Yes; Hx Alcohol Use: No Hx Substance Use: No Preferred Language: Mohawk Communication Ability: Effective Visual Impairment: Limited Hearing Ability: Hard of Hearing 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 Beliefs That Will Affect Care: None marital status: / Current Living Situation: Personal Care Facility Current Living Situation Comment: Lives at [facility], [place], [place] current occupational status: retired current occupation: retired from career working on her farm Feels Safe at Home: Yes Childhood Exposure to Second-Hand Smoke: Yes Dental Care, Regularly: No Physical Activity Frequency: Does not Exercise Seatbelt Use: always Sunscreen Use: No Assistive Devices: Glasses, Walker and Wheelchair Allergies Allergies Allergy/AdvReac Type Severity Reaction Status Date / Time duloxetine Allergy Severe Diarrhea Verified 04/18/22 18:18 SOLANGE Inhibitors Allergy Unknown Unknown Verified 04/18/22 18:18 alendronate sodium Allergy Unknown UNKNOWN Verified 04/18/22 18:18 ARB-Angiotensin Receptor Allergy Unknown Unknown Verified 04/18/22 18:18 Antagonist cisapride Allergy Unknown UNKNOWN Verified 04/18/22 18:18 diazepam Allergy Unknown UNKNOWN Verified 04/18/22 18:18 nabumetone Allergy Unknown UNKNOWN Verified 04/18/22 18:18 NSAIDS (Non-Steroidal Allergy Unknown Unknown Verified 04/18/22 18:18 Anti-Inflamma phenazopyridine Allergy Unknown UNKNOWN Verified 04/18/22 18:18 Sulfa (Sulfonamide Allergy Unknown UNKNOWN Verified 04/18/22 18:18 Antibiotics) sulindac Allergy Unknown UNKNOWN Verified 04/08/22 14:15 Home Meds Home Medications Medication Instructions Recorded Confirmed docusate sodium 100 mg capsule 200 mg PO BIDM 12/24/19 04/18/22 (Stool Softener) acetaminophen 325 mg tablet 650 mg PO Q6H PRN PAIN/FEVER 01/07/22 04/18/22 (Tylenol) apixaban 5 mg tablet (Eliquis) 5 mg PO BID 04/09/22 04/18/22 metoprolol tartrate 100 mg tablet 100 mg PO BID 04/18/22 04/18/22 Previous Rx's Medication Instructions Recorded amitriptyline 50 mg tablet 50 mg PO HS #90 tabs 06/20/21 calcitriol 0.25 mcg capsule 0.25 mcg PO QAM #90 caps 06/23/21 venlafaxine 150 mg 150 mg PO DAILY #90 caps 09/04/21 capsule,extended release 24 hr spironolactone 100 mg tablet 100 mg PO DAILY #90 tabs 09/24/21 metformin 500 mg tablet,extended 500 mg PO DAILY #90 tabs 02/09/22 release 24 hr furosemide 40 mg tablet (Lasix) 40 mg PO DAILY 90 days #90 tabs 03/05/22 atorvastatin 10 mg tablet (Lipitor) 10 mg PO QAM #90 tabs 03/25/22 Results & Data (ED) Vital Signs Vital Signs - 24 hr 04/18/22 13:36 04/18/22 13:36 04/18/22 13:36 Temperature 36.6 C Temperature Source Oral Pulse Rate 115 H Pulse Rate [Finger] Pulse Rhythm [Finger] Respiratory Rate 18 16 Blood Pressure 117/95 Blood Pressure [Left Arm] Blood Pressure Mean 102 Blood Pressure Mean [Left Arm] Pulse Oximetry 94 94 Oxygen Delivery Method Room Air Room Air Sepsis Recent Fever Within 48 Hours No Sepsis New/Unexplained Change in Mental Status N/A Sepsis Action Taken by Nursing No Action Required 04/18/22 14:30 04/18/22 15:22 04/18/22 17:14 Temperature Temperature Source Pulse Rate Pulse Rate [Finger] 105 H 91 H Pulse Rhythm [Finger] Irregular Irregular Respiratory Rate 18 20 Blood Pressure Blood Pressure [Left Arm] 139/71 167/97 H Blood Pressure Mean Blood Pressure Mean [Left Arm] 93 120 Pulse Oximetry 93 92 96 Oxygen Delivery Method Sepsis Recent Fever Within 48 Hours Sepsis New/Unexplained Change in Mental Status Sepsis Action Taken by Nursing Laboratory Data 04/18/22 13:22 04/18/22 13:22 Lab Results 04/18/22 04/18/22 04/18/22 Range/Units 13:22 13:22 13:22 WBC 9.28 (4.8-10.8) K/ul RBC 5.25 H (3.93-5.22) M/uL Hgb 15.2 (12.0-16.0) g/dl Hct 47.4 H (34.1-44.9) % MCV 90.3 (80.0-100.0) fL MCH 29.0 (25.0-34.0) pg MCHC 32.1 (32.0-36.0) g/dL RDW Std Deviation 54.3 H (36.4-46.3) fL RDW Coeff of Carmenza 16.4 H (11.5-14.5) % Plt Count 234 (130-400) K/uL MPV 10.7 (9.4-12.3) fL Immature Gran % (Auto) 0.8 % Neut % (Auto) 76.9 % Lymph % (Auto) 12.2 % Graham % (Auto) 8.0 % Eos % (Auto) 1.8 % Baso % (Auto) 0.3 % Neut # (Auto) 7.14 H (1.4-6.5) K/uL Lymph # (Auto) 1.13 L (1.2-3.4) K/uL Graham # (Auto) 0.74 (0.24-0.82) K/uL Eos # (Auto) 0.17 (0-0.50) K/uL Baso # (Auto) 0.03 (0-0.2) K/uL Immature Gran # (Auto) 0.07 H (0.00-0.02) K/uL PT 10.9 (9.0-12.0) Seconds INR 1.0 (0.9-1.1) APTT 21.9 (21.0-31.0) Seconds PTT Ratio 0.8 Sodium 136 (136-145) mmol/L Potassium 4.1 (3.5-5.1) mmol/L Chloride 101 (98-107) mmol/L Carbon Dioxide 28 (21-32) mmol/L Anion Gap 7 (3-11) BUN 8 (6-23) mg/dl Creatinine 0.73 (0.6-1.2) mg/dl Est Cr Clr Drug Dosing 64.0 ml/min Est GFR ( Amer) 87.0 ml/min Est GFR (Non-Af Amer) 75.1 ml/min BUN/Creatinine Ratio 11.0 (10-20) Glucose 94 (70-99(Fasting)) mg/dl Calcium 10.0 (8.5-10.1) mg/dl Magnesium 2.1 (1.7-2.4) mg/dl Total Bilirubin 0.3 (0.2-1.0) mg/dl AST 15 (13-39) U/L ALT 12 (7-52) U/L Alkaline Phosphatase 42 (34-104) U/L Troponin I High Sens 22.4 H (0-14) pg/ml B-Natriuretic Peptide (0-100) pg/ml Total Protein 8.3 (6.0-8.3) gm/dl Albumin 4.5 (3.4-5.0) gm/dl Globulin 3.8 (2.5-4.0) gm/dl Albumin/Globulin Ratio 1.2 (0.9-2) SARS-CoV-2 (PCR) (Negative) Influenza Type A (PCR) (Neg) Influenza Type B (PCR) (Neg) RSV (RT-PCR) (Neg) 04/18/22 04/18/22 Range/Units 14:32 15:40 WBC (4.8-10.8) K/ul RBC (3.93-5.22) M/uL Hgb (12.0-16.0) g/dl Hct (34.1-44.9) % MCV (80.0-100.0) fL MCH (25.0-34.0) pg MCHC (32.0-36.0) g/dL RDW Std Deviation (36.4-46.3) fL RDW Coeff of Carmenza (11.5-14.5) % Plt Count (130-400) K/uL MPV (9.4-12.3) fL Immature Gran % (Auto) % Neut % (Auto) % Lymph % (Auto) % Graham % (Auto) % Eos % (Auto) % Baso % (Auto) % Neut # (Auto) (1.4-6.5) K/uL Lymph # (Auto) (1.2-3.4) K/uL Graham # (Auto) (0.24-0.82) K/uL Eos # (Auto) (0-0.50) K/uL Baso # (Auto) (0-0.2) K/uL Immature Gran # (Auto) (0.00-0.02) K/uL PT (9.0-12.0) Seconds INR (0.9-1.1) APTT (21.0-31.0) Seconds PTT Ratio Sodium (136-145) mmol/L Potassium (3.5-5.1) mmol/L Chloride (98-107) mmol/L Carbon Dioxide (21-32) mmol/L Anion Gap (3-11) BUN (6-23) mg/dl Creatinine (0.6-1.2) mg/dl Est Cr Clr Drug Dosing ml/min Est GFR ( Amer) ml/min Est GFR (Non-Af Amer) ml/min BUN/Creatinine Ratio (10-20) Glucose (70-99(Fasting)) mg/dl Calcium (8.5-10.1) mg/dl Magnesium (1.7-2.4) mg/dl Total Bilirubin (0.2-1.0) mg/dl AST (13-39) U/L ALT (7-52) U/L Alkaline Phosphatase (34-104) U/L Troponin I High Sens (0-14) pg/ml B-Natriuretic Peptide 628 H (0-100) pg/ml Total Protein (6.0-8.3) gm/dl Albumin (3.4-5.0) gm/dl Globulin (2.5-4.0) gm/dl Albumin/Globulin Ratio (0.9-2) SARS-CoV-2 (PCR) NEGATIVE (Negative) Influenza Type A (PCR) Negative (Neg) Influenza Type B (PCR) Negative (Neg) RSV (RT-PCR) Negative (Neg) Administered Medications Diltiazem HCl 125 mg/ Dextrose 125 mls @ 5 mls/hr IV .Q24H [facility]; Protocol Stop: 05/18/22 14:59 Last Admin: 04/18/22 16:08 Dose: 5 mg/hr, 5 mls/hr Documented By: CAMELIA Co-signed By: BRITTNEE Azithromycin 500 mg/ Dextrose 255 mls @ 125 mls/hr IV ONE ONE Stop: 04/18/22 19:06 Last Admin: 04/18/22 17:42 Dose: 125 mls/hr Documented By: CAMELIA Discontinued Medications Albuterol (Albut/Ipratrop 3mg/0.5mg Neb 3 Ml Vial) 3 ml NEB NOW STA; Protocol Stop: 04/18/22 13:42 Last Admin: 04/18/22 14:00 Dose: 3 ml Documented By: YAHAIRA Albuterol (Albut/Ipratrop 3mg/0.5mg Neb 3 Ml Vial) 3 ml NEB NOW STA; Protocol Stop: 04/18/22 15:54 Last Admin: 04/18/22 16:07 Dose: 3 ml Documented By: CAMELIA Diltiazem HCl (Diltiazem Hcl 5 Mg/Ml 5 Ml Vial) 10 mg IV NOW STA Stop: 04/18/22 14:59 Last Admin: 04/18/22 16:08 Dose: 10 mg Documented By: CAMELIA Co-signed By: BRITTNEE Methylprednisolone (Methylprednisolone 125 Mg/2 Ml Vial) 60 mg IV NOW STA Stop: 04/18/22 15:54 Last Admin: 04/18/22 16:07 Dose: 60 mg Documented By: CAMELIA Metoprolol Tartrate (Metoprolol Tartrate 1 Mg/Ml Vial) 5 mg IV NOW STA Stop: 04/18/22 13:42 Last Admin: 04/18/22 13:59 Dose: 5 mg Documented By: YAHAIRA Metoprolol Tartrate (Metoprolol Tartrate 50 Mg Tab) 50 mg PO NOW STA Stop: 04/18/22 16:21 Last Admin: 04/18/22 17:42 Dose: 50 mg Documented By: CAMELIA Imaging Data Radiologist's Impression: Chest X-Ray 04/18/22 13:41 XR chest 1V portable CLINICAL HISTORY: Dyspnea TECHNIQUE: Single frontal radiograph of the chest was obtained. Comparison: Comparison is made to chest radiograph 01/07/2022 FINDINGS: No lines and tubes are seen. Cardiomegaly is noted. Reticular interstitial opacities are seen. No evidence of pleural effusion or pneumothorax. IMPRESSION: Interstitial thickening is noted. ACT 112: Negative or not required by law. Electronically signed by: Wong Ramos M.D. 04/18/2022 1:58 PM Discharge Plan Visit Data Chief Complaint: Shortness of Breath/Dyspnea ED Provider: Von Donnelly Discharge Problem: Atrial fibrillation with RVR, Acute exacerbation of chronic obstructive pulmonary disease, Cough Patient Disposition: Being Evaluated by Hospitalist Forms Stand Alone Forms: My [facility] Prescriptions Prescriptions: No Action amitriptyline 50 mg tablet 50 mg PO HS Qty: 90 3RF calcitriol 0.25 mcg capsule 0.25 mcg PO QAM Qty: 90 3RF venlafaxine 150 mg capsule,extended release 24hr 150 mg PO DAILY Qty: 90 3RF spironolactone 100 mg tablet 100 mg PO DAILY Qty: 90 3RF metformin 500 mg tablet extended release 24 hr 500 mg PO DAILY Qty: 90 3RF furosemide [Lasix] 40 mg tablet 40 mg PO DAILY 90 Days Qty: 90 3RF atorvastatin [Lipitor] 10 mg tablet 10 mg PO QAM Qty: 90 3RF Eliquis 5 mg tablet 5 mg PO BID docusate sodium [Stool Softener] 100 mg Capsule 200 mg PO BIDM acetaminophen [Tylenol] 325 mg Tablet 650 mg PO Q6H MDD 3 GRAMS/24 HOURS PRN (Reason: PAIN/FEVER) metoprolol tartrate 100 mg tablet 100 mg PO BID Referrals Referrals: Joanie Rodrigues MD [Primary Care Provider] -
[2022-04-18] MEDS: dilTIAZem HCL 125 MG in DEXTROSE 5% 100 ML IV SCH (16:08)
[2022-04-18] MEDS ORDERED: METOPROLOL TARTRATE 50 MG TAB PO STA (16:20)
--- NOTE | 2022-04-18 16:25 | History & Physical Report ---
Date of Service April 18, 2022 Assessment & Plan (1) COPD exacerbation: Plan: -Patient is a current smoker (10-14 cigarettes daily), does not appear that she has a formal diagnosis and she is not on daily inhaler treatment -She was found to be negative for covid/influenza/rsv -S/P 60 mg IV methyprednisolone and DuoNeb treatment in the ED, reports improved respiratory status -Will start Azithromycin with 500 mg IV today then followed by 250 mg daily x 5- 7 days -Continue with 40 mg PO prednisone daily x 5 days with first dose tomorrow -Will start daily Spiriva and Breo-Ellipta today -Aggressive pulm hygiene, prn DuoNebs, prno robitussin, prn O2 to keep SpO2 between 89-92% -Monitor on tele and pulse oximetry (2) Atrial fibrillation with RVR: Plan: -Admit to the PCU -Patient is currently afebrile, hemodynamically stable, stable on RA but tachycardic in the low 110's. -Her afib with RVR is likely due to missing her am dose of metoprolol and currently COPD exacerbation -Currently on a diltiazem drip started in the ED -Giving her am dose of 50 mg PO metoprolol tartrate now, will continue her home BID dosing -When her HR is better controlled will wean her off the diltiazem drip -Monitor on tele and pulse oximetry -Potassium and mag levels are both WNL (3) Depression: Plan: -Continue venlafaxine (4) Elevated troponin: Plan: -initial high sensitivity trop elevated at 22, patient is currently asymptomatic -ST depressions noted in the lateral leads on ECG, likely due to demand from COPD exacerbation and afib RVR -Will repeat another trop now, will repeat ECG when HR is controlled -Continue to monitor on tele (5) Tobacco abuse: Plan: -Nicotine patches ordered (6) Hypertension: Plan: -Stable -Continue metformin -Patient appears clinically dry at the time of admission, will hold her doses of lasix and spironolactone today -Can restart tomorrow if she is stable (7) Diabetes mellitus, type II: Plan: -Hold metformin -Monitor BSG ACHS, goal is 110-140 -Will start with 5 units lantus BID, correction factor of 45, carb ratio of 14 -May need to increase regimen with her current steroid therapy (8) Diastolic CHF: Plan: -Appears euvolemic-dry on exam -No significant volume overload on CXR -Will hold lasix and spironolactone today, restart tomorrow if stable and not dry on exam (9) Hyperlipidemia: Plan: -Continue statin Plan The patient was discussed with Dr. West at the time of the admission History of Present Illness Chief Complaint: SOB Primary Care Provider: Joanie Rodrigues MD Paula is an 86 yo female with PMHx of DM2, current smoker, CKIII, HTN, diastolic CHF (LVEF of 55-605 as of 01/2022), atrial fibrillation/atrial flutter on eliquis, frequent falls, fibromyalgia, depression and HLDwho presented to the [facility] ED on 04/18/22 via EMS from [facility] for SOB. In the ED the patient was found to be afebrile, hemodynamically stable, stable on RA, but in afib RVR with rates in the 130's. Labs were remarkable for a WBC WNL, stable hgb and platelets, INR of 1.0, stable Cr at 0.73, stable electrolytes, initial high sensitivity troponin of 22 with a BNP of 628 (up from the 400's in june of 2021), Covid/Influenza/RSV negative. Chest xray was read as "Interstitial thickening is noted.". Prior to admission the patient was given 2 DuoNeb treatments, 60 mg Iv methylprednisolone, one dose of 5 mg IV Lopressor and 125 mg IV diltiazem without resolution of her aifb RVR. She was subsequently placed on a diltiazem drip for rate control. At the time of the exam the patient was lying in bed in no acute distress with her daughter sitting bedside, history was obtained from all. They state that the patient was experiencing significant wheezing and SOB earlier today at the [facility] which is why she was brought into the ED. When asked, the patient states that she started to develop a productive cough with white sputum approximately 3 days ago, since then her SOB has continued to progress. She denies recent fevers, chills, chest pain, abdominal pain, nausea, vomiting, diarrhea, dysuria, hematuria, and recent falls. She does not feel as though he legs have been getting more swollen over this time. The patient currently smokes 10-14 cigarettes daily, she is adamant that she will not quit, "even if it's going to kill me". She is not on oxygen or HS CPAP/Bipap at her living facility. Since arriving to the ED and receiving breathing treatments she states that her breathing is somewhat improved. I spoke with the patient and her family regarding code status, she is a DNR/DNI. Her daughters would make decisions for her if she could not make them herself. Please refer to Dr. West's attestation for any changes to the treatment plan Allergies Allergy/AdvReac Type Severity Reaction Status Date / Time duloxetine Allergy Severe Diarrhea Verified 04/18/22 18:18 SOLANGE Inhibitors Allergy Unknown Unknown Verified 04/18/22 18:18 alendronate sodium Allergy Unknown UNKNOWN Verified 04/18/22 18:18 ARB-Angiotensin Receptor Allergy Unknown Unknown Verified 04/18/22 18:18 Antagonist cisapride Allergy Unknown UNKNOWN Verified 04/18/22 18:18 diazepam Allergy Unknown UNKNOWN Verified 04/18/22 18:18 nabumetone Allergy Unknown UNKNOWN Verified 04/18/22 18:18 NSAIDS (Non-Steroidal Allergy Unknown Unknown Verified 04/18/22 18:18 Anti-Inflamma phenazopyridine Allergy Unknown UNKNOWN Verified 04/18/22 18:18 Sulfa (Sulfonamide Allergy Unknown UNKNOWN Verified 04/18/22 18:18 Antibiotics) sulindac Allergy Unknown UNKNOWN Verified 04/08/22 14:15 Home Medications Medication Instructions Recorded Confirmed Type docusate sodium 100 mg capsule 200 mg PO BIDM 12/24/19 04/18/22 History (Stool Softener) amitriptyline 50 mg tablet 50 mg PO HS #90 tabs 06/20/21 04/18/22 Rx calcitriol 0.25 mcg capsule 0.25 mcg PO QAM #90 caps 06/23/21 04/18/22 Rx venlafaxine 150 mg 150 mg PO DAILY #90 caps 09/04/21 04/18/22 Rx capsule,extended release 24 hr spironolactone 100 mg tablet 100 mg PO DAILY #90 tabs 09/24/21 04/18/22 Rx acetaminophen 325 mg tablet 650 mg PO Q6H PRN PAIN/FEVER 01/07/22 04/18/22 History (Tylenol) metformin 500 mg tablet,extended 500 mg PO DAILY #90 tabs 02/09/22 04/18/22 Rx release 24 hr furosemide 40 mg tablet (Lasix) 40 mg PO DAILY 90 days #90 tabs 03/05/22 04/18/22 Rx atorvastatin 10 mg tablet (Lipitor) 10 mg PO QAM #90 tabs 03/25/22 04/18/22 Rx apixaban 5 mg tablet (Eliquis) 5 mg PO BID 04/09/22 04/18/22 History metoprolol tartrate 100 mg tablet 100 mg PO BID 04/18/22 04/18/22 History Past Med/Surg History Medical History Asymptomatic bacteriuria Atrial flutter Depression Diastolic CHF Dizziness Fibromyalgia Hyperlipidemia Hypertension Non-functioning kidney Peripheral neuropathy Rapid atrial fibrillation Renal artery stenosis Rib pain Stage 3 chronic kidney disease Stress incontinence Type 2 diabetes mellitus Venous stasis dermatitis of both lower extremities Surgical History History of stent insertion of renal artery (~12/03/16) Family History Father Prostate cancer Sister Breast cancer Brother Lung cancer Sister Lung cancer Denies family history of Ovarian cancer Myocardial infarction Colorectal cancer Social History Smoking Status: Current every day smoker Tobacco Type: Cigarettes Age Started Using Tobacco: 21; packs per day: 0.25; Cigarettes Per Day: 5; Second Hand Exposure: Yes; Hx Alcohol Use: No Hx Substance Use: No Preferred Language: Indonesian Communication Ability: Impaired Visual Impairment: Limited Hearing Ability: Hard of Hearing 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: No Beliefs That Will Affect Care: None marital status: / Current Living Situation: Alone Current Living Situation Comment: Lives at [facility], [place], [place] current occupational status: retired current occupation: retired from career working on her farm Feels Safe at Home: Yes Childhood Exposure to Second-Hand Smoke: Yes Dental Care, Regularly: No Physical Activity Frequency: Does not Exercise Seatbelt Use: always Sunscreen Use: No Assistive Devices: Walker and Wheelchair Review of Systems 2 Review of Systems: Denies current fever, chills, headache, changes in vision, hearing, taste, and smell, chest pain, abdominal pain, nausea, vomiting, diarrhea, hematemesis, melena, dysuria, hematuria, and recent falls. All systems have been reviewed and are otherwise negative. Physical Exam Physical Exam: Physical Exam: General: In no acute distress, stated age, obese, chronically ill-appearing, non-toxic appearing HEENT: Normocephalic, atraumatic, no scleral icterus, pupils around round, symmetrical, and reactive to light, dry mucus membranes, No JVD, trachea midline, no thyromegaly Chest/Pulm: No respiratory distress, symmetrical chest expansion, rhonchi and expiratory wheezing noted throughout Cardiac: tachycardic rate, irregular rhythm, no murmurs noted Abdomen: Negative for ascites and bruising, normoactive bowel sounds, soft, non-tender to palpation throughout Musculoskeletal: Symmetrical and without signs of acute trauma, upper and lower extremities with full ROM, no atrophy, spasticity, or flaccidity Extremities: Radial, dorsalis pedis, and posterior tibial pulses are intact and symmetrical, no edema noted in the BL LE's Skin: Warm, dry, no rashes , lesions, or scars noted Neuro: Alert and oriented to person, place, month, year, no focal defects, CN II-XII tested and intact, finger to nose test negative, no tremors noted Psych: No acute distress, calm and cooperative during the exam Results & Data Results & Data ([facility]) Vital Signs (Past 12 Hours) Vital Signs Temp Pulse Pulse Resp BP BP Pulse Ox 04/18/22 15:22 105 H 18 139/71 92 04/18/22 14:30 93 04/18/22 13:36 16 94 04/18/22 13:36 04/18/22 13:36 36.6 C 115 H 18 117/95 94 O2 Del Method 04/18/22 15:22 04/18/22 14:30 04/18/22 13:36 Room Air 04/18/22 13:36 Room Air 04/18/22 13:36 Laboratory Results Abnormal lab results 04/18/22 04/18/22 04/18/22 Range/Units 13:22 13:22 15:40 RBC 5.25 H (3.93-5.22) M/uL Hct 47.4 H (34.1-44.9) % RDW Std Deviation 54.3 H (36.4-46.3) fL RDW Coeff of Carmenza 16.4 H (11.5-14.5) % Neut # (Auto) 7.14 H (1.4-6.5) K/uL Lymph # (Auto) 1.13 L (1.2-3.4) K/uL Immature Gran # (Auto) 0.07 H (0.00-0.02) K/uL Troponin I High Sens 22.4 H (0-14) pg/ml B-Natriuretic Peptide 628 H (0-100) pg/ml Diagnostic Findings Chest X-Ray 04/18/22 13:41 XR chest 1V portable CLINICAL HISTORY: Dyspnea TECHNIQUE: Single frontal radiograph of the chest was obtained. Comparison: Comparison is made to chest radiograph 01/07/2022 FINDINGS: No lines and tubes are seen. Cardiomegaly is noted. Reticular interstitial opacities are seen. No evidence of pleural effusion or pneumothorax. IMPRESSION: Interstitial thickening is noted. ACT 112: Negative or not required by law. Electronically signed by: Wong Ramos M.D. 04/18/2022 1:58 PM ECG Additional Comments: Poor data quality, interpretation may be adversely affected Atrial fibrillation with rapid ventricular response Incomplete right bundle branch block Left anterior fascicular block Voltage criteria for left ventricular hypertrophy Cannot rule out Septal infarct (cited on or before 18-APR-2022) Marked ST abnormality, possible inferolateral subendocardial injury Abnormal ECG When compared with ECG of 07-JAN-2022 18:59, Atrial fibrillation has replaced Atrial flutter ... Code Status & VTE Plan Code Status DNR/DNI Supervising Physician Co-Signing Physician Notes I personally saw and examined the patient. I verified all franco points and agree with Abdiel Thurston PA-C with the following exceptions and/or additions: 86 year old female present with shortness of breath and wheezing. Previous episodes requiring albuterol inhaler and prednisone although no formally diagnosed COPD she is a lifelong smoker. Discussed extensively ways we can reduce her risk of future admissions; including lung functions testing, maintenance inhalers, rescue pack and quitting smoking. O/E Alert, orientated to person and place but not time. Chest - expiratory wheezing throughout without accessory muscle use and able to complete sentences. HS irregular rhythm, fast rate, no murmurs, Abdo SNT. A/P Suspected COPD exacerbation - duonebs, prednisone, azithromycin. Recommend 4-6 week PFTs after discharge. A. fib RVR - suspect rapid rate just due to her not taking metoprolol. Will give her usual dose now. Continue diltiazem while rate still high, can d/c if rate < 80. PG Care Time/CCT Total # of Minutes Spent Total Time Spent with Patient: Total time spent is greater than 50% in coordination of care (as documented) at patient's floor/unit and/or counseling patient: [place] [address] INT INP/OBS CARE 3/75MIN Patient Type Established Medical Decision Making High Complexity Diagnoses COPD exacerbation J44.1 Atrial fibrillation with RVR I48.91 Depression F32.9 Elevated troponin R77.8 Tobacco abuse Z72.0 Hypertension I10 Hypertension type: unspecified Diabetes mellitus, type II E11.9 Diastolic CHF I50.30 Hyperlipidemia E78.5 (1) Hypertension Hypertension type: unspecified Qualified Code(s): I10 - Essential (primary) hypertension
[2022-04-18] MEDS ORDERED: AZITHROMYCIN 500 MG in DEXTROSE 5% 250 ML IV ONE (17:04)
[2022-04-18 19:02] LABS: Appearance Urine Cloudy (Clear); Bacteria Urine Automated 4+ (Negative); Bilirubin Urine Negative (Negative); Blood Urine Negative (Negative); Cast Urine Automated 0 /lpf (0-5); Color Urine Yellow; Epithelial Cell Urine Auto 20-30 /lpf (0-5); Glucose Urine UA Negative (Negative); Ketones Urine Negative (Negative); Leukocyte Esterase Urine 1+ (Negative); Nitrite Urine Positive (Negative); Protein Urine 1+ (Negative); RBC Urine Automated 0-4 /hpf (0-4); Specific Gravity Urine 1.019 (1.000-1.030); Urobilinogen Urine Negative (Negative); pH Urine 5.5 (4.5-7.5)
[2022-04-18] MEDS ORDERED: GLUCOSE 10 TAB/TUBE PO PRN (19:58)
[2022-04-18] MEDS ORDERED: GLUCAGON FOR INJ 1 MG VIAL SQ PRN (19:58)
[2022-04-18] MEDS ORDERED: CARBOHYDRATES FOR HYPOGLYCEMIA PO PRN (19:58)
[2022-04-18] MEDS ORDERED: GLUCOSE 40% GEL 15 GM TUBE PO PRN (19:58)
[2022-04-18] MEDS ORDERED: DEXTROSE 50% 50 ML SYRINGE IV PRN (19:58)
[2022-04-18] MEDS: NICOTINE 14 MG/24 HR PATCH TD SCH (21:38)
[2022-04-18] MEDS: FLUTICASONE/VILANTEROL 100/25MCG 14 PUFFS/INHALER INH SCH (21:39)
[2022-04-18] MEDS: LANTUS PER UNIT CHARGE SQ SCH (21:55)
[2022-04-18] MEDS: INSULIN ASPART PER UNIT SC SCH (21:55)
[2022-04-19 06:28] LABS: Hemoglobin 13.9 g/dl (12.0-16.0); Mean Corpuscular Hemoglobin 29.1 pg (25.0-34.0); Mean Corpuscular Hgb Conc 33.1 g/dL (32.0-36.0); Mean Corpuscular Volume 87.9 fL (80.0-100.0); Mean Platelet Volume 9.8 fL (9.4-12.3); Platelet Count 275 K/uL (130-400); RDW Coefficient of Variation 16.1 % (11.5-14.5); RDW Standard Deviation 52.1 fL (36.4-46.3); Red Blood Count 4.78 M/uL (3.93-5.22); White Blood Count 9.07 K/ul (4.8-10.8)
--- NOTE | 2022-04-19 06:53 | Hospitalist Progress Note ---
Date of Service April 19, 2022 Assessment & Plan (1) COPD exacerbation: (2) Atrial fibrillation with RVR: (3) Depression: (4) Elevated troponin: (5) Tobacco abuse: (6) Hypertension: (7) Diabetes mellitus, type II: (8) Diastolic CHF: (9) Hyperlipidemia: Plan 04/19: plan below would be the plan for today. However, patient is refusing all medication treatment at this time. She has ripped out her IV's and ekg leads. She does not want to be treated for anything at this time. She refused a physical examination. She wishes to go to another hospital or to get her care from somewhere else. However, after patient's daughters came in, patient was agreeable to resume her treatment. Patient's family says that they believe the patient is confused and gets like this when she has a UTI. Patient is A&Ox3 but does say things that don't make sense at times, which the family confirms is different from her baseline. Will continue with current treatment plan below. Shortness of breath on presentation -likely copd exacerbation - long standing h/o smoking. No pft in chart. CXR with chronic increased interstitial markings. No CT in the chart -with severe LVH and chronic diastolic heart failure - possibly fluid overloaded - mild rise in BNP, elevated bun. follow #COPD exacerbation -Patient is a current smoker (10-14 cigarettes daily), does not appear that she has a formal diagnosis and she is not on daily inhaler treatment -She was found to be negative for covid/influenza/rsv -S/P 60 mg IV methyprednisolone and DuoNeb treatment in the ED, reports improved respiratory status -Started Azithromycin with 500 mg IV on 04/18. Will continue with 250mg daily for 5-7 days. -40 mg PO prednisone daily starting on 04/19. -Will start daily Spiriva and Breo-Ellipta today -Aggressive pulm hygiene, prn DuoNebs, prno robitussin, prn O2 to keep SpO2 between 89-92% -Monitor on tele and pulse oximetry #Atrial fibrillation with RVR -Patient is currently afebrile, hemodynamically stable, stable on RA but tachycardic in the low 110's. -Her afib with RVR is likely due to missing her am dose of metoprolol and currently COPD exacerbation -Currently on a diltiazem drip started in the ED. Stopped due to patient refusal. Currently back on -Metoprolol 50 mg BID continued. -When her HR is better controlled will wean her off the diltiazem drip -Monitor on tele and pulse oximetry -Potassium and mag levels are both WNL #Confusion -? sec to infection -refused meds and pulled IV line this am. -daughter at bedside -supportive care #UTI -UA done in the ED shows possible UTI. Pending culture results -Start on Ceftriaxone 2 grams Q24H for 3 days. -May be contributing to patient's underlying agitation and initial refusal of care. #Depression: -Continue venlafaxine #Elevated troponin -initial high sensitivity trop elevated at 22, no delta on repeat trop. -Continue to monitor on tele #Tobacco abuse -Nicotine patches ordered #Hypertension -elevated due to refusing meds. -Patient appears clinically dry at the time of admission, diuretics initially h eld. -Will start today. #Diabetes mellitus, type II -Hold metformin -Monitor BSG ACHS, goal is 110-140 -Will start with 5 units lantus BID, correction factor of 45, carb ratio of 14 -May need to increase regimen with her current steroid therapy #Diastolic CHF -Appears euvolemic-dry on exam -No significant volume overload on CXR -lasix and spironolactone held on admission. Will restart today. #Hyperlipidemia -Continue statin Fluids: none Nutrition: DM2 Code status: DNR/DNI Dispo: PCU/tele Thank you for allowing me to participate in the care of your patient. -Dr. Wai Kang PGY1 Admission and Anticipated Discharge Date Admission Date: April 18, 2022 Supervising Physician Co-Signing Physician Notes Resident Physician Supervision Note: I independently interviewed and examined the patient and verified the franco history and physical, reviewed labs and image studies and agree with resident findings and care plan. Subjective Patient was seen beside this AM. She is refusing all treatment and ripped out her IV. She is A&Ox3. She states that she wants to go to a different hospital. Patient's daughters came in around 11:30. Spoke with the patient and daughters bedside. Patient was agreeable to getting back on the monitor and getting IV access. She is also willing to take her medication at this time. Patient's daughters states that she is not at her baseline and that she is very confused. Review of Systems Review of Systems: Unobtainable due to mental health condition Physical Exam Physical Exam: Patient confused. refused lung/heart exam. Alert and oriented to place No respiratory distress. no audible wheeze. Tele monitor - rapid A fib in 110s Results & Data Results & Data ([facility]) Vital Signs (Past 12 Hours) Vital Signs Temp Pulse Pulse Resp BP Pulse Ox O2 Del Method 04/19/22 04:14 116 H 171/86 H 04/19/22 02:48 36.5 C 86 18 147/78 H 91 Room Air 04/18/22 22:00 82 04/18/22 19:59 85 04/18/22 19:50 Room Air 04/18/22 23:04 36.8 C 71 18 144/76 H 91 Room Air 04/18/22 19:59 36.6 C 94 H 18 127/74 93 Room Air 04/18/22 19:06 83 20 158/78 H 94 Room Air Resident Activity Tracking Resident Involvement: Resident Care Provided Care Provided: Adult Hospital Medicine (1) Hypertension Hypertension type: unspecified Qualified Code(s): I10 - Essential (primary) hypertension
[2022-04-19 07:14] LABS: BUN Creatinine Ratio 28.3 (10-20); Calcium 9.3 mg/dl (8.5-10.1); Creatinine Clr Calc Pharmacy 39.2 ml/min; Est GFR (African American) 51.3 ml/min; Est GFR (Non-African American) 44.3 ml/min; Potassium 4.4 mmol/L (3.5-5.1)
[2022-04-19] MEDS: INSULIN ASPART PER UNIT SC SCH ×4 (07:56→21:23)
[2022-04-19] MEDS: NICOTINE 14 MG/24 HR PATCH TD SCH (09:26)
[2022-04-19] MEDS: FLUTICASONE/VILANTEROL 100/25MCG 14 PUFFS/INHALER INH SCH (09:26)
[2022-04-19] MEDS: AZITHROMYCIN 250 MG in DEXTROSE 5% 250 ML IV SCH ×2 (09:26→12:38)
[2022-04-19] MEDS: LANTUS PER UNIT CHARGE SQ SCH ×2 (09:26→21:23)
[2022-04-19] MEDS: UMECLIDINIUM BROMIDE 62.5MCG/BLISTER 7 PUFFS/INHALER INH SCH (09:27)
[2022-04-19] MEDS: predniSONE 20 MG TAB PO SCH (09:27)
[2022-04-19] MEDS ORDERED: ACETAMINOPHEN 325 MG TAB PO PRN (11:21)
[2022-04-19] MEDS ORDERED: cefTRIAXone SODIUM 2,000 MG in DEXTROSE 5% AD-VAN 50 ML IV SCH (12:15)
[2022-04-19] MEDS ORDERED: cefTRIAXone SODIUM 2,000 MG in DEXTROSE 5% 70 ML IV SCH (12:45)
[2022-04-19] MEDS: dilTIAZem HCL 125 MG in DEXTROSE 5% 100 ML IV SCH ×2 (14:51→23:59)
[2022-04-19] MEDS: DOCUSATE SODIUM 100 MG CAP PO SCH (16:24)
[2022-04-19] MEDS: MELATONIN 3 MG TAB PO PRN (21:00)
[2022-04-19] MEDS: APIXABAN 5 MG TABLET PO SCH (21:01)
[2022-04-19] MEDS: METOPROLOL TARTRATE 100 MG TAB PO SCH (21:01)
--- NOTE | 2022-04-19 21:56 | Electrocardiogram Report ---
Test Reason : Blood Pressure : / mmHG Vent. Rate : 134 BPM Atrial Rate : 144 BPM P-R Int : 000 ms QRS Dur : 092 ms QT Int : 292 ms P-R-T Axes : 000 -51 161 degrees QTc Int : 436 ms Poor data quality, interpretation may be adversely affected Atrial fibrillation with rapid ventricular response Incomplete right bundle branch block Left anterior fascicular block Voltage criteria for left ventricular hypertrophy Cannot rule out Septal infarct (cited on or before 18-APR-2022) Marked ST abnormality, possible inferolateral subendocardial injury Abnormal ECG When compared with ECG of 07-JAN-2022 18:59, Atrial fibrillation has replaced Atrial flutter Confirmed by Doug Casanova ([id number]) on 04/19/2022 9:56:20 PM Referred By: [facility] Confirmed By:Doug Casanova
[2022-04-20 06:35] LABS: Hematocrit (blood only) 39.8 % (34.1-44.9); Hemoglobin 13.2 g/dl (12.0-16.0); Mean Corpuscular Hemoglobin 30.1 pg (25.0-34.0); Mean Corpuscular Hgb Conc 33.2 g/dL (32.0-36.0); Mean Corpuscular Volume 90.9 fL (80.0-100.0); Mean Platelet Volume 9.5 fL (9.4-12.3); Platelet Count 279 K/uL (130-400); RDW Coefficient of Variation 16.3 % (11.5-14.5); RDW Standard Deviation 54.7 fL (36.4-46.3); Red Blood Count 4.38 M/uL (3.93-5.22); White Blood Count 8.97 K/ul (4.8-10.8)
[2022-04-20 06:58] LABS: BUN Creatinine Ratio 25.7 (10-20); Calcium 8.9 mg/dl (8.5-10.1); Creatinine Clr Calc Pharmacy 39.2 ml/min; Est GFR (African American) 51.3 ml/min; Est GFR (Non-African American) 44.3 ml/min
--- NOTE | 2022-04-20 07:02 | Hospitalist Progress Note ---
Date of Service April 20, 2022 Assessment & Plan (1) COPD exacerbation: (2) Atrial fibrillation with RVR: (3) Depression: (4) Elevated troponin: (5) Tobacco abuse: (6) Hypertension: (7) Diabetes mellitus, type II: (8) Diastolic CHF: (9) Hyperlipidemia: Plan #Shortness of breath on presentation -likely copd exacerbation - long standing h/o smoking. No pft in chart. CXR with chronic increased interstitial markings. No CT in the chart -with severe LVH and chronic diastolic heart failure - possibly fluid overloaded - mild rise in BNP, elevated bun. -Though pt does not seem fluid overloaded at this time. Believe this is be a COPD exacerbation at this time rather than acute exacerbation of CHF. #COPD exacerbation -Patient is a current smoker (10-14 cigarettes daily), does not appear that she has a formal diagnosis and she is not on daily inhaler treatment -She was found to be negative for covid/influenza/rsv -S/P 60 mg IV methyprednisolone and DuoNeb treatment in the ED, reports improved respiratory status -Started Azithromycin with 500 mg IV on 04/18. Will continue with 250mg daily for 5-7 days. -40 mg PO prednisone daily starting on 04/19. -on daily Spiriva and Breo-Ellipta -Aggressive pulm hygiene, prn DuoNebs, prno robitussin, prn O2 to keep SpO2 between 89-92% -Monitor on tele and pulse oximetry #Delirium #Confusion -Patient initially refused medical treatment on the morning of 04/19. She was A&Ox3, though patient had some confusion that was collaborated by her daughters who were bedside. -AMS continues to get better with just improved oxygenation. -etiologies: infection, UTI, hypoxia -Most likely 2/2 hypoxia now given no urinary complaints and no s/s of infection. -Getting better now with hypoxia improvement. -UA did show ESBL, though asymptomatic, will hold off on treatment at this time. #Atrial fibrillation with RVR -Patient is currently afebrile, hemodynamically stable, stable on RA -Her afib with RVR is likely due to missing doses of metoprolol and currently COPD exacerbation -Diltiazem drip started in ED, pt is currently now in A fib w/o RVR with pulse at 67. -Metoprolol 50 mg BID continued. -Monitor on tele and pulse oximetry -Eliquis 5mg BID. -Potassium and mag levels are both WNL #Depression: -Continue venlafaxine #Elevated troponin -initial high sensitivity trop elevated at 22, no delta on repeat trop. -Continue to monitor on tele #Tobacco abuse -Nicotine patches ordered #Hypertension -elevated due to refusing meds initially. -Patient appears clinically dry at the time of admission, diuretics initially held. -Restarted meds on 04/19 after patient agreed to treatment. #Diabetes mellitus, type II -Hold metformin -Monitor BSG ACHS, goal is 110-140 -Will start with 5 units lantus BID, correction factor of 45, carb ratio of 14 -May need to increase regimen with her current steroid therapy #Diastolic CHF -Appears euvolemic-dry on exam -No significant volume overload on CXR -Continue on home lasix and spironolactone #Hyperlipidemia -Continue statin Fluids: none Nutrition: DM2 Code status: DNR/DNI Dispo: PCU/tele PT/OT: ordered CM: consulted Thank you for allowing me to participate in the care of your patient. -Dr. Wai Kang PGY1 Admission and Anticipated Discharge Date Admission Date: April 18, 2022 Supervising Physician Co-Signing Physician Notes I personally examined the patient and verified all franco points of history and exam, discussed case, and agree with decision making with Dr Kang Feeling better. Still dyspnea on exertion, still cough and has a hard time getting up sputum. Vitals noted, in general he is she is awake and alert pleasant no distress. HEENT normocephalic atraumatic mucous membranes moist. Breathing unlabored no accessory muscle use good effort. Skin shows no rashes no pallor or icterus. Neuro without focal deficits. COPD exacerbationslowly improving. Continue current care. Continue to follow. Deliriumbroad potential of differentials, but most likely appears to be COPD exacerbation/age/hospital environment. Doubt UTI is at playmost suspicious that is simply asymptomatic bacteriuria, particularly given that she showed no cystitis type symptoms, no infectious signs or symptoms such as fever/leukocytosis, and given the ESBL, its not clear that any of the anti biotics she was on would have been effective, and delirium clearedputting it most in line with a delirium seen from a metabolic/respiratory cause. Subjective Patient was seen bedside this AM. She has no new complaints or issues at this time. She states that she continues to have some SOB, more so with exertion. She denies any issues with urination. She does feel weak. Review of Systems Review of Systems: All systems reviewed & are unremarkable except as noted in HPI & below Physical Exam Constitutional: WD/WN, vitals as above Respiratory: normal respiratory effort, lungs clear to auscultation Cardiovascular: Rate/Rhythm: regular rate; + abnormal rhythm Heart Sounds: normal S1 and normal S2 Vessels: no JVD Extremities: normal capillary refill; no pedal edema Gastrointestinal (Abdomen): normal bowel sounds, soft, nontender, no hepatosplenomegaly Musculoskeletal: no cyanosis or clubbing, extremities motor strength 5/5 Skin: no rashes, warm and dry Neurologic: patellar DTR's 2+ bilat, sensation intact Psychiatric: A+Ox3, euthymic affect Results & Data Results & Data ([facility]) Vital Signs (Past 12 Hours) Vital Signs Temp Pulse Pulse Resp BP Pulse Ox O2 Del Method 04/20/22 02:37 36.9 C 71 18 149/66 H 97 Oxymask 04/19/22 23:58 58 L 04/19/22 22:17 73 04/19/22 23:04 36.8 C 72 20 151/71 H 97 Oxymask 04/19/22 21:00 Room Air, Oxymask 04/19/22 19:29 36.6 C 102 H 18 138/79 96 Room Air O2 Flow Rate 04/20/22 02:37 3 04/19/22 23:58 04/19/22 22:17 04/19/22 23:04 3 04/19/22 21:00 04/19/22 19:29 Resident Activity Tracking Resident Involvement: Resident Care Provided Care Provided: Adult Hospital Medicine (1) Hypertension Hypertension type: unspecified Qualified Code(s): I10 - Essential (primary) hypertension
[2022-04-20] MEDS: INSULIN ASPART PER UNIT SC SCH ×4 (08:00→21:48)
[2022-04-20] MEDS: LANTUS PER UNIT CHARGE SQ SCH ×2 (08:01→21:50)
[2022-04-20] MEDS: NICOTINE 14 MG/24 HR PATCH TD SCH (08:06)
[2022-04-20] MEDS: CALCITRIOL 0.25 MCG CAPSULE PO SCH (08:06)
[2022-04-20] MEDS: SPIRONOLACTONE 100 MG TAB PO SCH (08:06)
[2022-04-20] MEDS: FUROSEMIDE 40 MG TAB PO SCH (08:06)
[2022-04-20] MEDS: VENLAFAXINE HCL XR 150 MG CAPXR PO SCH (08:06)
[2022-04-20] MEDS: ATORVASTATIN 10 MG TAB PO SCH (08:07)
[2022-04-20] MEDS: FLUTICASONE/VILANTEROL 100/25MCG 14 PUFFS/INHALER INH SCH (08:07)
[2022-04-20] MEDS: APIXABAN 5 MG TABLET PO SCH ×2 (08:07→20:33)
[2022-04-20] MEDS: DOCUSATE SODIUM 100 MG CAP PO SCH ×2 (08:07→17:58)
[2022-04-20] MEDS: predniSONE 20 MG TAB PO SCH (08:07)
[2022-04-20] MEDS: METOPROLOL TARTRATE 100 MG TAB PO SCH ×2 (08:07→20:33)
[2022-04-20] MEDS: UMECLIDINIUM BROMIDE 62.5MCG/BLISTER 7 PUFFS/INHALER INH SCH (08:08)
[2022-04-20] MEDS: AZITHROMYCIN 250 MG in DEXTROSE 5% 250 ML IV SCH (08:12)
[2022-04-20] MEDS ORDERED: AMOXICILLIN/CLAVULANATE 875 MG TAB PO SCH (08:15)
--- NOTE | 2022-04-20 19:10 | Billing Data ---
Date of Service April 20, 2022 Coding Level of Care Code 70666 SUB INP/OBS CARE MIN
[2022-04-20] MEDS: dilTIAZem HCL 125 MG in DEXTROSE 5% 100 ML IV SCH (21:08)
[2022-04-20] MEDS: MELATONIN 3 MG TAB PO PRN (21:48)
--- NOTE | 2022-04-21 06:00 | Electrocardiogram Report ---
Test Reason : Blood Pressure : / mmHG Vent. Rate : 067 BPM Atrial Rate : 061 BPM P-R Int : 000 ms QRS Dur : 096 ms QT Int : 434 ms P-R-T Axes : 000 -33 206 degrees QTc Int : 458 ms Atrial fibrillation Left axis deviation Voltage criteria for left ventricular hypertrophy Cannot rule out Septal infarct (cited on or before 18-APR-2022) Abnormal ECG When compared with ECG of 18-APR-2022 13:30, Vent. rate has decreased BY 67 BPM Confirmed by Alexei Murry ([id number]) on 04/21/2022 6:00:43 AM Referred By: [facility] Confirmed By:Alexei Murry
[2022-04-21 06:19] LABS: Basophils # (auto) 0.03 K/uL (0-0.2); Basophils % (auto) 0.3 %; Eosinophils # (auto) 0.15 K/uL (0-0.50); Eosinophils % (auto) 1.5 %; Hematocrit (blood only) 42.7 % (34.1-44.9); Hemoglobin 13.8 g/dl (12.0-16.0); Immature Granulocytes # (auto) 0.07 K/uL (0.00-0.02); Immature Granulocytes % (auto) 0.7 %; Lymphocytes # (auto) 1.89 K/uL (1.2-3.4); Lymphocytes % (auto) 18.3 %; Mean Corpuscular Hemoglobin 29.5 pg (25.0-34.0); Mean Corpuscular Hgb Conc 32.3 g/dL (32.0-36.0); Mean Corpuscular Volume 91.2 fL (80.0-100.0); Mean Platelet Volume 9.4 fL (9.4-12.3); Monocytes # (auto) 0.95 K/uL (0.24-0.82); Monocytes % (auto) 9.2 %; Neutrophils # (auto) 7.21 K/uL (1.4-6.5); Platelet Count 296 K/uL (130-400); RDW Coefficient of Variation 16.3 % (11.5-14.5); RDW Standard Deviation 54.8 fL (36.4-46.3); Red Blood Count 4.68 M/uL (3.93-5.22)
[2022-04-21 07:00] LABS: BUN Creatinine Ratio 26.7 (10-20); Calcium 9.1 mg/dl (8.5-10.1); Creatinine Clr Calc Pharmacy 32.3 ml/min; Est GFR (African American) 41.4 ml/min; Est GFR (Non-African American) 35.7 ml/min; Potassium 4.2 mmol/L (3.5-5.1)
--- NOTE | 2022-04-21 07:21 | Hospitalist Progress Note ---
Date of Service April 21, 2022 Assessment & Plan (1) COPD exacerbation: (2) Atrial fibrillation with RVR: (3) Depression: (4) Elevated troponin: (5) Tobacco abuse: (6) Hypertension: (7) Diabetes mellitus, type II: (8) Diastolic CHF: (9) Hyperlipidemia: Plan #Shortness of breath on presentation -likely copd exacerbation - long standing h/o smoking. No pft in chart. CXR with chronic increased interstitial markings. No CT in the chart -with severe LVH and chronic diastolic heart failure - possibly fluid overloaded - mild rise in BNP, elevated bun. -Though pt does not seem fluid overloaded at this time. Believe this is be a COPD exacerbation at this time rather than acute exacerbation of CHF. #COPD exacerbation -Patient is a current smoker (10-14 cigarettes daily), does not appear that she has a formal diagnosis and she is not on daily inhaler treatment -She was found to be negative for covid/influenza/rsv -S/P 60 mg IV methyprednisolone and DuoNeb treatment in the ED, reports improved respiratory status -Started Azithromycin with 500 mg IV on 04/18. Will continue with 250mg daily for 5-7 days. -40 mg PO prednisone daily starting on 04/19. -on daily Spiriva and Breo-Ellipta -Aggressive pulm hygiene, prn DuoNebs, prno robitussin, prn O2 to keep SpO2 between 89-92% -Monitor on tele and pulse oximetry #Delirium #Confusion -Patient initially refused medical treatment on the morning of 04/19. She was A&Ox3, though patient had some confusion that was collaborated by her daughters who were bedside. -AMS continues to get better with just improved oxygenation. -etiologies: infection, UTI, hypoxia -Most likely 2/2 hypoxia now given no urinary complaints and no s/s of infection. -Getting better now with hypoxia improvement. -UA did show ESBL, though asymptomatic, will hold off on treatment at this time. #Atrial fibrillation with RVR -Patient is currently afebrile, hemodynamically stable, stable on RA -Her afib with RVR is likely due to missing doses of metoprolol and currently COPD exacerbation -Diltiazem drip started in ED, pt is currently now in A fib w/o RVR with pulse at 67. -Metoprolol 50 mg BID continued. -Monitor on tele and pulse oximetry -Eliquis 5mg BID. -Potassium and mag levels are both WNL #Depression: -Continue venlafaxine #Elevated troponin -initial high sensitivity trop elevated at 22, no delta on repeat trop. -Continue to monitor on tele #Tobacco abuse -Nicotine patches ordered #Hypertension -elevated due to refusing meds initially. -Patient appears clinically dry at the time of admission, diuretics initially held. -Restarted meds on 04/19 after patient agreed to treatment. #Diabetes mellitus, type II -Hold metformin -Monitor BSG ACHS, goal is 110-140 -Will start with 5 units lantus BID, correction factor of 45, carb ratio of 14 -May need to increase regimen with her current steroid therapy #Diastolic CHF -Appears euvolemic-dry on exam -No significant volume overload on CXR -Continue on home lasix and spironolactone #Hyperlipidemia -Continue statin Fluids: none Nutrition: DM2 Code status: DNR/DNI Dispo: PCU/tele PT/OT: Can return to [facility] with home therapy services CM: consulted Thank you for allowing me to participate in the care of your patient. -Dr. Wai Kang PGY1 Admission and Anticipated Discharge Date Admission Date: April 18, 2022 Subjective Patient was seen beside this AM. She states that she is feeling better and wants to get out of here. When mentioning PT, patient states that she does not want it, that it does "not work" for her. Patient talked about following up with PCP about her SOB she has on exertion. When mentioning that her smoking as something to do with it patient states "no, it doesn't. You don't know what you are talking about. I don't even inhale". Review of Systems Review of Systems: All systems reviewed & are unremarkable except as noted in HPI & below Results & Data Results & Data ([facility]) Vital Signs (Past 12 Hours) Vital Signs Temp Pulse Pulse Resp BP Pulse Ox O2 Del Method 04/21/22 03:23 36.3 C L 83 18 133/78 93 Room Air 04/21/22 00:00 87 04/20/22 23:17 36.9 C 66 18 134/70 95 Oxymask 04/20/22 20:00 Oxymask O2 Flow Rate 04/21/22 03:23 04/21/22 00:00 04/20/22 23:17 2 04/20/22 20:00 3 (1) Hypertension Hypertension type: unspecified Qualified Code(s): I10 - Essential (primary) hypertension
[2022-04-21] MEDS: AZITHROMYCIN 250 MG in DEXTROSE 5% 250 ML IV SCH (08:28)
[2022-04-21] MEDS: APIXABAN 5 MG TABLET PO SCH ×2 (08:31→21:40)
[2022-04-21] MEDS: NICOTINE 14 MG/24 HR PATCH TD SCH (08:31)
[2022-04-21] MEDS: FUROSEMIDE 40 MG TAB PO SCH (08:32)
[2022-04-21] MEDS: ATORVASTATIN 10 MG TAB PO SCH (08:32)
[2022-04-21] MEDS: FLUTICASONE/VILANTEROL 100/25MCG 14 PUFFS/INHALER INH SCH (08:32)
[2022-04-21] MEDS: VENLAFAXINE HCL XR 150 MG CAPXR PO SCH (08:32)
[2022-04-21] MEDS: SPIRONOLACTONE 100 MG TAB PO SCH (08:33)
[2022-04-21] MEDS: DOCUSATE SODIUM 100 MG CAP PO SCH ×2 (08:33→17:05)
[2022-04-21] MEDS: predniSONE 20 MG TAB PO SCH (08:34)
[2022-04-21] MEDS: CALCITRIOL 0.25 MCG CAPSULE PO SCH (08:34)
[2022-04-21] MEDS: UMECLIDINIUM BROMIDE 62.5MCG/BLISTER 7 PUFFS/INHALER INH SCH (08:35)
[2022-04-21] MEDS: METOPROLOL TARTRATE 100 MG TAB PO SCH ×2 (08:37→21:40)
[2022-04-21] MEDS: LANTUS PER UNIT CHARGE SQ SCH ×2 (08:51→21:37)
[2022-04-21] MEDS: INSULIN ASPART PER UNIT SC SCH ×4 (08:51→21:33)
--- NOTE | 2022-04-21 15:02 | Discharge Summary ---
Date of Service April 22, 2022 Admission HPI Per Admitting Provider Paula is an 86 yo female with PMHx of DM2, current smoker, CKIII, HTN, diastolic CHF (LVEF of 55-605 as of 01/2022), atrial fibrillation/atrial flutter on eliquis, frequent falls, fibromyalgia, depression and HLDwho presented to the [facility] ED on 04/18/22 via EMS from [facility] for [facility]B. In the ED the patient was found to be afebrile, hemodynamically stable, stable on RA, but in afib RVR with rates in the 130's. Labs were remarkable for a WBC WNL, stable hgb and platelets, INR of 1.0, stable Cr at 0.73, stable electrolytes, initial high sensitivity troponin of 22 with a BNP of 628 (up from the 400's in june of 2021), Covid/Influenza/RSV negative. Chest xray was read as "Interstitial thickening is noted.". Prior to admission the patient was given 2 DuoNeb treatments, 60 mg Iv methylprednisolone, one dose of 5 mg IV Lopressor and 125 mg IV diltiazem without resolution of her aifb RVR. She was subsequently placed on a diltiazem drip for rate control. At the time of the exam the patient was lying in bed in no acute distress with her daughter sitting bedside, history was obtained from all. They state that the patient was experiencing significant wheezing and SOB earlier today at the [facility] which is why she was brought into the ED. When asked, the patient states that she started to develop a productive cough with white sputum approximately 3 days ago, since then her SOB has continued to progress. She denies recent fevers, chills, chest pain, abdominal pain, nausea, vomiting, diarrhea, dysuria, hematuria, and recent falls. She does not feel as though he legs have been getting more swollen over this time. The patient currently smokes 10-14 cigarettes daily, she is adamant that she will not quit, "even if it's going to kill me". She is not on oxygen or HS CPAP/Bipap at her living facility. Since arriving to the ED and receiving breathing treatments she states that her breathing is somewhat improved. I spoke with the patient and her family regarding code status, she is a DNR/DNI. Her daughters would make decisions for her if she could not make them herself. Admission Exam Per Admitting Provider General:In no acute distress, stated age, obese, chronically ill-appearing, non-toxic appearing HEENT:Normocephalic, atraumatic, no scleral icterus, pupils around round, symmetrical, and reactive to light, dry mucus membranes, No JVD, trachea midline, no thyromegaly Chest/Pulm:No respiratory distress, symmetrical chest expansion, rhonchi and expiratory wheezing noted throughout Cardiac:tachycardic rate, irregular rhythm, no murmurs noted Abdomen:Negative for ascites and bruising, normoactive bowel sounds, soft, non-tender to palpation throughout Musculoskeletal:Symmetrical and without signs of acute trauma, upper and lower extremities with full ROM, no atrophy, spasticity, or flaccidity Extremities:Radial, dorsalis pedis, and posterior tibial pulses are intact and symmetrical, no edema noted in the BL LE's Skin:Warm, dry, no rashes , lesions, or scars noted Neuro:Alert and oriented to person, place, month, year, no focal defects, CN II-XII tested and intact, finger to nose test negative, no tremors noted Psych:No acute distress, calm and cooperative during the exam Principal Diagnosis COPD Excerbation Discharge Exam Constitutional: WD/WN, vitals as above Respiratory: normal respiratory effort, lungs clear to auscultation Cardiovascular: Rate/Rhythm: regular rate; + abnormal rhythm Heart Sounds: normal S1 and normal S2 Vessels: no JVD Extremities: normal capillary refill; no pedal edema Gastrointestinal (Abdomen): normal bowel sounds, soft, nontender, no hepatosplenomegaly Musculoskeletal: no cyanosis or clubbing, extremities motor strength 5/5 Skin: no rashes, warm and dry Neurologic: patellar DTR's 2+ bilat, sensation intact Psychiatric: A+Ox3, euthymic affect Discharge Data Allergies Allergy/AdvReac Type Severity Reaction Status Date / Time duloxetine Allergy Severe Diarrhea Verified 04/18/22 18:18 SOLANGE Inhibitors Allergy Unknown Unknown Verified 04/18/22 18:18 alendronate sodium Allergy Unknown UNKNOWN Verified 04/18/22 18:18 ARB-Angiotensin Receptor Allergy Unknown Unknown Verified 04/18/22 18:18 Antagonist cisapride Allergy Unknown UNKNOWN Verified 04/18/22 18:18 diazepam Allergy Unknown UNKNOWN Verified 04/18/22 18:18 nabumetone Allergy Unknown UNKNOWN Verified 04/18/22 18:18 NSAIDS (Non-Steroidal Allergy Unknown Unknown Verified 04/18/22 18:18 Anti-Inflamma phenazopyridine Allergy Unknown UNKNOWN Verified 04/18/22 18:18 Sulfa (Sulfonamide Allergy Unknown UNKNOWN Verified 04/18/22 18:18 Antibiotics) sulindac Allergy Unknown UNKNOWN Verified 04/08/22 14:15 Consultations 04/18/22 16:11 ED Decision to Admit Stat Hospital Course (1) COPD exacerbation: (2) Atrial fibrillation with RVR: (3) Depression: (4) Elevated troponin: (5) Tobacco abuse: (6) Hypertension: (7) Diabetes mellitus, type II: (8) Diastolic CHF: (9) Hyperlipidemia: Plan #Shortness of breath on presentation -long standing h/o smoking. No pft in chart. CXR with chronic increased interstitial markings. No CT in the chart -CHF does not seem fluid overloaded during admission. -Believe this is be a COPD exacerbation at this time rather than acute exacerbation of CHF. #COPD exacerbation -Patient is a current smoker (10-14 cigarettes daily), does not appear that she has a formal diagnosis and she is not on daily inhaler treatment -She was found to be negative for covid/influenza/rsv -S/P 60 mg IV methyprednisolone and DuoNeb treatment in the ED, reported improved respiratory status -Started Azithromycin with 500 mg IV on 04/18. Will continue with 250mg daily for 5-7 days. Prescription sent. -40 mg PO prednisone daily for 5 days. Prescription sent. -on daily Spiriva and Breo-Ellipta. Prescriptions were sent -VSS and on RA when discharged. -Will need to f/u with PCP in 1-2 weeks to discuss COPD management. #Delirium #Confusion -Patient initially refused medical treatment on the morning of 04/19. She was A&Ox3, though patient had some confusion that was collaborated by her daughters who were bedside. -Delirium/confusion continues to get better with just improved oxygenation. -Most likely 2/2 hypoxia -UA did show ESBL, though asymptomatic, will hold off on treatment at this time. Delirium/confusion improved without treatment to ESBL. #Atrial fibrillation with RVR -Patient is currently afebrile, hemodynamically stable, stable on RA -Her afib with RVR is likely due to missing doses of metoprolol and currently COPD exacerbation -Diltiazem drip started in ED, pt converted to in A fib w/o RVR with pulse at 67 after one day on dilt drip. -Metoprolol 50 mg BID continued. -Eliquis 5mg BID. -Potassium and mag levels are both WNL #Depression: -Continue venlafaxine #Elevated troponin -initial high sensitivity trop elevated at 22, no delta on repeat trop. #Tobacco abuse -Nicotine patches ordered #Hypertension -elevated due to refusing meds initially. -Patient appears clinically dry at the time of admission, diuretics initially held. -Restarted meds on 04/19 after patient agreed to treatment. #Diabetes mellitus, type II -continue home meds at time of discharge. #Diastolic CHF -Appears euvolemic-dry on exam -No significant volume overload on CXR -Continue on home lasix and spironolactone #Hyperlipidemia -Continue statin Total Time Total Time Spent Total Time Spent (In Minutes): <30 Discharge Plan Discharge Items Patient Disposition: Home - Home Health Services Reason For Visit: SOB Discharge Diagnosis: COPD exacerbation Activity: Per Instructions section Lifting: Gradually increase as tolerated Non-emergency contact: Primary Care Provider Call non-emergency contact if: you have any medication questions, your pain is unusual for you and your temperature is above 101.5 Follow-up/Referrals: Joanie Rodrigues MD [Primary Care Provider] - 04/28/22 1:00 pm Diet: Regular Addtl Attending Provider Instructions: You were admitted to the hospital for COPD exacerbation. You were treated with steroids and DuoNeb. A discharge summary will be sent to your primary care physician to ensure contin uity of care. Please bring this discharge summary with you to your next office appointment so that your provider can review it at that time. Follow-up appointments: * Make a follow-up appointment with your PCP within the next week. It is very important that you follow up with them shortly after discharge from the hospital. * Keep all your follow-up appointments as already scheduled. If you cannot make an appointment, notify your provider. Medications: Your medication list has been reviewed and reconciled upon discharge to ensure accuracy and continuity of care. An updated list of all your medications is included with your hospital discharge paperwork. Please review this list closely, and make note of any changes. * We sent a new medication called prednisone to your pharmacy. Take prednisone (40mg) once a day for 3 days. * We sent a new medication called azithromycin to your pharmacy. Take azithromycin (250mg) once a day for 5 days. * We sent a new inhaler called Spiriva and Breo-Ellipta to your pharmacy. Take Spiriva and Breo-Ellipta 1 puff each in the morning. * If you have any issues filling these prescriptions, please call [phone] and ask to leave a message for Dr. Kang. * Take your medications as instructed; do not skip a dose of your medicines. Make sure all of your doctors know every medicine you are taking (including hmfc-ees-awriyvc medicines, vitamins, and supplements). Call your primary care provider before taking any new medicines (including over- the-counter medicines, vitamins, and supplements), because some of these may interact with your current medications, or may make your symptoms worse. Tell your primary care provider if you cannot afford your medications. CONTACT YOUR PRIMARY CARE PROVIDER if you experience any of the following: * Worsening of symptoms * Fever, chills, or fatigue * Difficulty following your treatment plan, or difficulty taking medications CALL 911 OR GO TO THE EMERGENCY DEPARTMENT if you experience any of the following: * Sudden, severe abdominal pain or nausea/vomiting * Severe chest pain, or chest pain that radiates (moves) to your jaw or arm * Sudden, severe shortness of breath or difficulty breathing Thank you for allowing us to participate in your care. Pending Studies at Discharge: No Stand-Alone Forms: My iMI[employer], Smoking Cessation Medications and DC Order Prescriptions: New prednisone 20 mg Tablet 40 mg PO DAILY 3 Days Qty: 6 0RF azithromycin 250 mg tablet 250 mg PO DAILY 5 Days Qty: 5 0RF Rx Instructions: start on day 3 of therapy fluticasone furoate-vilanterol [Breo Ellipta] 100-25 mcg/dose Blister With Device 1 ea inhalation DAILY Qty: 60 0RF Incruse Ellipta 62.5 mcg/actuation Blister With Device 1 inh inhalation QAM Qty: 30 0RF Continued amitriptyline 50 mg tablet 50 mg PO HS Qty: 90 3RF calcitriol 0.25 mcg capsule 0.25 mcg PO QAM Qty: 90 3RF venlafaxine 150 mg capsule,extended release 24hr 150 mg PO DAILY Qty: 90 3RF spironolactone 100 mg tablet 100 mg PO DAILY Qty: 90 3RF metformin 500 mg tablet extended release 24 hr 500 mg PO DAILY Qty: 90 3RF furosemide [Lasix] 40 mg tablet 40 mg PO DAILY 90 Days Qty: 90 3RF atorvastatin [Lipitor] 10 mg tablet 10 mg PO QAM Qty: 90 3RF Eliquis 5 mg tablet 5 mg PO BID 90 Days Qty: 180 3RF docusate sodium [Stool Softener] 100 mg Capsule 200 mg PO BIDM acetaminophen [Tylenol] 325 mg Tablet 650 mg PO Q6H MDD 3 GRAMS/24 HOURS PRN (Reason: PAIN/FEVER) metoprolol tartrate 100 mg tablet 100 mg PO BID Discharge Orders: Discharge Order (Routine); Ordered 04/22/22 Ordered By: Wai Kang Admission Data Admit Date/Time: 04/18/22 16:38 Attending Provider: Micky Kohli Admit Provider: Luke West Primary Care Provider: Joanie Rodrigues Other Providers: Luke West ; Estephania Bunn Other Interventions: Discharge Summary Assessment (RN) Last Done: 04/22/22 11:23 Supervising Physician Co-Signing Physician Notes I personally examined the patient and verified all franco points of history and exam, discussed case, and agree with decision making with Dr Kang Would like to get out of the hospital. Surprisingly did not require oxygen on respiratory assessmentalthough admittedly she was not able to walk much. Vitals noted, in general he is she is awake and alert pleasant no distress. HEENT normocephalic atraumatic mucous membranes moist. Breathing unlabored no accessory muscle use good effort. Skin shows no rashes no pallor or icterus. Neuro without focal deficits. COPD exacerbationslowly improving. Continue current care. Safe for dischargeat the current time does not appear to need supplemental oxygen at assessed level of exertion, but at the same time, would ask that she is followedas it would not be surprising that with more exertion then she achieved here she might need some degree of supplemental oxygen. Delirium/metabolic encephalopathyappears to have resolvedbroad potential of differentials, but most likely appears to be COPD exacerbation/age/hospital environment. Doubt UTI is at playmost suspicious that is simply asymptomatic bacteriuria, particularly given that she showed no cystitis type symptoms, no infectious signs or symptoms such as fever/leukocytosis, and given the ESBL, its not clear that any of the antibiotics she was on would have been effective, and delirium clearedputting it most in line with a delirium seen from a metabolic/respiratory cause. to clarify - date of service 04/22/22 Resident Activity Tracking Resident Involvement: Resident Care Provided Care Provided: Adult Hospital Medicine
--- NOTE | 2022-04-21 16:08 | Hospitalist Progress Note ---
Date of Service April 21, 2022 Assessment & Plan (1) COPD exacerbation: (2) Atrial fibrillation with RVR: (3) Depression: (4) Elevated troponin: (5) Tobacco abuse: (6) Hypertension: (7) Diabetes mellitus, type II: (8) Diastolic CHF: (9) Hyperlipidemia: Plan #Shortness of breath on presentation -long standing h/o smoking. No pft in chart. CXR with chronic increased interstitial markings. No CT in the chart -CHF does not seem fluid overloaded during admission. -Believe this is be a COPD exacerbation at this time rather than acute exacerbation of CHF. #COPD exacerbation -Patient is a current smoker (10-14 cigarettes daily), does not appear that she has a formal diagnosis and she is not on daily inhaler treatment -She was found to be negative for covid/influenza/rsv -S/P 60 mg IV methyprednisolone and DuoNeb treatment in the ED, reported improved respiratory status -Started Azithromycin with 500 mg IV on 04/18. Will continue with 250mg daily for 5-7 days. Prescription sent. -40 mg PO prednisone daily for 5 days. -on daily Spiriva and Breo-Ellipta. -VSS and on RA on 04/21. -Will need to f/u with PCP in 1-2 weeks to discuss COPD management. -Will need 2 step prior to discharge. #Delirium #Confusion -Patient initially refused medical treatment on the morning of 04/19. She was A&Ox3, though patient had some confusion that was collaborated by her daughters who were bedside. -Delirium/confusion continues to get better with just improved oxygenation. -Most likely 2/2 hypoxia -UA did show ESBL, though asymptomatic, will hold off on treatment at this time. Delirium/confusion improved without treatment to ESBL. #Atrial fibrillation with RVR -Patient is currently afebrile, hemodynamically stable, stable on RA -Her afib with RVR is likely due to missing doses of metoprolol and currently COPD exacerbation -Diltiazem drip started in ED, pt converted to in A fib w/o RVR with pulse at 67 after one day on dilt drip. -Metoprolol 50 mg BID continued. -Eliquis 5mg BID. -Potassium and mag levels are both WNL #Depression: -Continue venlafaxine #Elevated troponin -initial high sensitivity trop elevated at 22, no delta on repeat trop. #Tobacco abuse -Nicotine patches ordered #Hypertension -elevated due to refusing meds initially. -Patient appears clinically dry at the time of admission, diuretics initially held. -Restarted meds on 04/19 after patient agreed to treatment. #Diabetes mellitus, type II -Hold metformin -Monitor BSG ACHS, goal is 110-140 -Will start with 5 units lantus BID, correction factor of 45, carb ratio of 14 #Diastolic CHF -Appears euvolemic-dry on exam -No significant volume overload on CXR -Continue on home lasix and spironolactone #Hyperlipidemia -Continue statin Admission and Anticipated Discharge Date Admission Date: April 18, 2022 Supervising Physician Co-Signing Physician Notes I personally examined the patient and verified all franco points of history and exam, discussed case, and agree with decision making with Dr Jorge Luis Hurt to get out of the hospital. Okay with oxygen with exertion. Case management notes this will be able to be set up until tomorrow. Vitals noted, in general he is she is awake and alert pleasant no distress. HEENT normocephalic atraumatic mucous membranes moist. Breathing unlabored no accessory muscle use good effort. Skin shows no rashes no pallor or icterus. Neuro without focal deficits. COPD exacerbationslowly improving. Continue current care. Safe for discharge once ambulatory oxygen is able to be set up. Delirium/metabolic encephalopathyappears to have resolvedbroad potential of differentials, but most likely appears to be COPD exacerbation/age/hospital environment. Doubt UTI is at playmost suspicious that is simply asymptomatic bacteriuria, particularly given that she showed no cystitis type symptoms, no infectious signs or symptoms such as fever/leukocytosis, and given the ESBL, its not clear that any of the antibiotics she was on would have been effective, and delirium clearedputting it most in line with a delirium seen from a metabolic/respiratory cause. Subjective Patient was seen bedside this AM. She states that doesn't want to do PT and that she wants to go home. She still complains about SOB on exertion, though does not believe smoking is contributing to this. Review of Systems Review of Systems: All systems reviewed & are unremarkable except as noted in HPI & below Physical Exam Constitutional: WD/WN, vitals as above Respiratory: normal respiratory effort, lungs clear to auscultation Cardiovascular: Rate/Rhythm: regular rate; + abnormal rhythm Heart Sounds: normal S1 and normal S2 Vessels: no JVD Extremities: normal capillary refill; no pedal edema Gastrointestinal (Abdomen): normal bowel sounds, soft, nontender, no hepatosplenomegaly Musculoskeletal: no cyanosis or clubbing, extremities motor strength 5/5 Skin: no rashes, warm and dry Neurologic: patellar DTR's 2+ bilat, sensation intact Psychiatric: A+Ox3, euthymic affect Results & Data Results & Data ([facility]) Vital Signs (Past 12 Hours) Vital Signs Temp Pulse Pulse Resp BP Pulse Ox O2 Del Method 04/21/22 14:50 36.3 C L 99 H 20 145/84 H 93 Room Air 04/21/22 11:45 37.2 C 79 18 153/85 H 93 Room Air 04/21/22 07:50 36.6 C 89 18 138/76 94 Room Air 04/21/22 08:00 87 04/21/22 08:00 Room Air Resident Activity Tracking Resident Involvement: Resident Care Provided Care Provided: Adult Hospital Medicine (1) Hypertension Hypertension type: unspecified Qualified Code(s): I10 - Essential (primary) hypertension
--- NOTE | 2022-04-21 18:51 | Billing Data ---
Date of Service April 21, 2022 Coding Level of Care Code 65382 SUB INP/OBS CARE
[2022-04-22] MEDS: NICOTINE 14 MG/24 HR PATCH TD SCH (08:36)
[2022-04-22] MEDS: APIXABAN 5 MG TABLET PO SCH (08:37)
[2022-04-22] MEDS: predniSONE 20 MG TAB PO SCH (08:37)
[2022-04-22] MEDS: METOPROLOL TARTRATE 100 MG TAB PO SCH (08:37)
[2022-04-22] MEDS: DOCUSATE SODIUM 100 MG CAP PO SCH (08:37)
[2022-04-22] MEDS: FUROSEMIDE 40 MG TAB PO SCH (08:38)
[2022-04-22] MEDS: VENLAFAXINE HCL XR 150 MG CAPXR PO SCH (08:38)
[2022-04-22] MEDS: ATORVASTATIN 10 MG TAB PO SCH (08:38)
[2022-04-22] MEDS: CALCITRIOL 0.25 MCG CAPSULE PO SCH (08:38)
[2022-04-22] MEDS: SPIRONOLACTONE 100 MG TAB PO SCH (08:38)
[2022-04-22] MEDS: FLUTICASONE/VILANTEROL 100/25MCG 14 PUFFS/INHALER INH SCH (08:39)
[2022-04-22] MEDS: UMECLIDINIUM BROMIDE 62.5MCG/BLISTER 7 PUFFS/INHALER INH SCH (08:40)
[2022-04-22] MEDS: AZITHROMYCIN 250 MG in DEXTROSE 5% 250 ML IV SCH (08:43)
[2022-04-22] MEDS: INSULIN ASPART PER UNIT SC SCH ×2 (08:53→12:04)
[2022-04-22] MEDS: LANTUS PER UNIT CHARGE SQ SCH (08:53)
--- NOTE | 2022-04-22 18:36 | Billing Data ---
Date of Service April 22, 2022 Coding Level of Care Code HOSP INP/OBS DISCH 30 MIN/LESS
== END 2022-04-22 12:56 | disposition home or self-care (01) | DRG 190 ==
LOC: ED 13:24 → 2S 16:38 → SUATTDRO 16:38 → 2S 19:55

== ENCOUNTER 2023-06-28 18:19 | Inpatient (IN) ==
--- NOTE | 2023-06-28 18:44 | Emergency Department Note ---
Impression & Plan Acute UTI, Atrial flutter with rapid ventricular response, COPD exacerbation, History of ESBL E. coli infection ED Provider Note NAME: JULIA ZHANG AGE: 87 SEX: F : 1935 ARRIVES VIA: Ambulance INFORMANT: Patient ED PROVIDER(S): Mario Sparks MD CHIEF COMPLAINT: Shortness of breath, referred PLAN: Disposition: Admit MEDICAL DECISION MAKING: The patient is a pleasant 87-year-old woman with a past medical history of COPD, atrial fibrillation on Eliquis, hypertension, hyperlipidemia, diabetes who presents to the emergency department via EMS from her personal-custodial at [facility] referred for worsening shortness of breath with cough, congestion that she reports has been worsening over the past week with clear sputum production. She denies any fevers. She denies any vomiting. Nursing reported foul-smelling urine however patient denies any burning with urination. Patient denies any chest pain but does report shortness of breath. On my evaluation the patient is acute and chronically ill-appearing but no acute distress, afebrile with heart in the 120s in atrial fibrillation with RVR and vital signs otherwise stable. O2 saturation is 98% on 2 L nasal cannula. She exhibits dry mucous membranes she has wheezes and rhonchi bilateral lower lung swann. Abdomen is nontender. EKG demonstrates atrial fibrillation vs flutter with variable AV block with RVR without overt acute ischemia. Chest x-ray demonstrates venous congestion without focal consolidations. WBC, H/H and platelets within normal limits. VBG without significant hypercapnia pH of 7.32. Chemistry without metabolic acidosis. Though initial lactic acid 4.0 with repeat pending. Magnesium 1.6 with IV repletion initiated. LFTs unremarkable. High-sensitivity troponin 20.5, nonspecific and BNP 580, nonspecific likely related to component of the patient's atrial fibrillation with RVR. Lipase not elevated. Procalcitonin is not elevated. UA is suspicious for infection with positive nitrites, WBCs and 2+ bacteria. Review of patient's prior urine cultures does demonstrate ESBL E. coli and so empiric treatment was initiated with IV Invanz following blood cultures. 5 mg of IV Lopressor administered for continued atrial flutter with RVR subsequent good effect. Case was discussed with Dr. Baker, [facility] hospitalist who will evaluate the patient for admission. Further management per admitting team Triage Nursing notes reviewed and agree them. Prior/external medical records reviewed Vital Signs: reviewed Differential diagnosis: Reactive airway disease, pneumonia, pneumothorax, COPD, CHF, infections, cardiac ischemia, pulmonary embolism, musculoskeletal, gastrointestinal, as well as other pathologies. ER treatment provided: See below. Diagnostics interpreted by me: ECG: Atrial fibrillation versus atrial flutter with variable AV block, RVR, 128 bpm, LVH with repolarization abnormality similar to prior. No overt ST elevation, QTc 467, QRS 84 Cardiac Monitoring: An order for continuous cardiac monitoring was placed and demonstrated Atrial fibrillation versus atrial flutter with variable AV block, RVR, 128 bpm Laboratory studies: See below Imaging studies: See below Consultation(s): [facility]. HPI: The patient is a pleasant 87-year-old woman with a past medical history of COPD, atrial fibrillation on Eliquis, hypertension, hyperlipidemia, diabetes who presents to the emergency department via EMS from her personal-custodial at [facility] referred for worsening shortness of breath with cough, congestion that she reports has been worsening over the past week with clear sputum production. She denies any fevers. She denies any vomiting. Nursing reported foul-smelling urine however patient denies any burning with urination. Patient denies any chest pain but does report shortness of breath. ROS: See above HPI for pertinent positives & negatives. A total of 10 systems reviewed and were otherwise negative. VITALS:See Below PHYSICAL EXAMINATION: GENERAL: Awake, alert, acute on chronically ill-appearing, in no distress HENT: Normocephalic, atraumatic. Oropharynx dry mucous membranes EYES: Normal conjunctiva. Sclera non-icteric. NECK: Supple. No nuchal rigidity. FROM. No JVD. RESPIRATORY: Wheezing rhonchi bilateral lower lung swann and otherwise clear. CARDIAC: Tachycardic rate, irregular rhythm. Extremities warm and well perfused. Pulses equal. ABDOMEN: Soft, non-distended. No tenderness to palpation. No rebound or guarding. No masses. RECTAL: Deferred. MUSCULOSKELETAL: Chest examination reveals no tenderness. The back is symmetrical on inspection without obvious abnormality. There is no CVA tenderness to palpation. No joint edema. LOWER EXTREMITIES: Calves are equal size bilaterally and non-tender. No edema. No discoloration. NEURO: Normal sensorium. No sensory or motor deficits noted. SKIN: No rash or jaundice noted. ED COURSE: Critical Care: I have personally spent greater than 35 minutes of critical care time in the direct management of this patient. This includes bedside care, interpretation of diagnostic studies, and testing, discussion with consultants, patient, and family members, and other required patient management activities. This 35 minutes is in excess of all separately billable procedures. Mario Sparks MD Past Med/Surg History Medical History S/P transesophageal echocardiogram ([facility]) [facility] resident [facility] RESIDENT Venous stasis dermatitis of both lower extremities Asymptomatic bacteriuria Atrial flutter Stress incontinence Non-functioning kidney Renal artery stenosis Diastolic CHF Dizziness Rapid atrial fibrillation Peripheral neuropathy Hyperlipidemia Hypertension Stage 3 chronic kidney disease Depression Type 2 diabetes mellitus Fibromyalgia Surgical History History of stent insertion of renal artery (~12/03/16) Family History Father Prostate cancer Sister Breast cancer Brother Lung cancer Sister Lung cancer Denies family history of Ovarian cancer Myocardial infarction Colorectal cancer Social History Smoking Status: Former smoker Tobacco Type: Cigarettes Age Started Using Tobacco: 21; packs per day: 0.25; Cigarettes Per Day: 5; Second Hand Exposure: No; Do You Dip or Chew Tobacco: No; Hx Alcohol Use: No Hx Substance Use: No Preferred Language: Czech Communication Ability: Effective Visual Impairment: Limited Hearing Ability: Hard of Hearing Cableman Required: No Beliefs That Will Affect Care: None marital status: / Current Living Situation: Personal Care Facility Current Living Situation Comment: [facility] current occupational status: retired current occupation: retired from career working on her farm Other Information That Helps Us Care for You: No Feels Safe at Home: Yes Safety Concerns: Feels Safe At This Time Childhood Exposure to Second-Hand Smoke: Yes Diet: regular Dental Care, Regularly: No Physical Activity Frequency: Does not Exercise Seatbelt Use: always Sunscreen Use: No Assistive Devices: Glasses and Walker Allergies Allergies Allergy/AdvReac Type Severity Reaction Status Date / Time SOLANGE Inhibitors Allergy Unknown ON [facility] Verified 06/28/23 20:17 MED LIST alendronate sodium Allergy Unknown ON [facility] Verified 06/28/23 20:17 MED LIST ARB-Angiotensin Receptor Allergy Unknown Unknown Verified 06/28/23 20:17 Antagonist cisapride Allergy Unknown UNKNOWN Verified 06/28/23 20:17 diazepam Allergy Unknown ON [facility] Verified 06/28/23 20:17 MED LIST nabumetone Allergy Unknown ON [facility] Verified 06/28/23 20:17 MED LIST NSAIDS (Non-Steroidal Allergy Unknown ON [facility] Verified 06/28/23 20:17 Anti-Inflamma MED LIST phenazopyridine Allergy Unknown ON [facility] Verified 06/28/23 20:17 MED LIST Sulfa (Sulfonamide Allergy Unknown ON [facility] Verified 06/28/23 20:17 Antibiotics) MED LIST sulindac Allergy Unknown ON [facility] Verified 06/28/23 20:17 MED LIST duloxetine AdvReac Severe Diarrhea Verified 06/28/23 20:17 Home Meds Home Medications Medication Instructions Recorded Confirmed docusate sodium 100 mg capsule 200 mg PO BIDM 12/24/19 06/28/23 (Stool Softener) acetaminophen 325 mg tablet 650 mg PO Q6H PRN PAIN/FEVER 01/07/22 06/28/23 (Tylenol) fluticasone furoate 100 1 ea inhalation QAM 08/03/22 06/28/23 mcg-vilanterol 25 mcg/dose inhalation powder (Breo Ellipta) metformin 500 mg tablet,extended 500 mg PO QAM 08/03/22 06/28/23 release 24 hr furosemide 40 mg tablet (Lasix) 40 mg PO 3XWK 10/12/22 06/28/23 dextromethorphan-guaifenesin 30 1 tab PO Q12H PRN Congestion 12/18/22 06/28/23 mg-600 mg tablet extended [id number] hr (Mucinex DM) apixaban 5 mg tablet (Eliquis) 5 mg PO BIDM 06/28/23 06/28/23 metoprolol tartrate 100 mg tablet 100 mg PO BIDM 06/28/23 06/28/23 Previous Rx's Medication Instructions Recorded atorvastatin 10 mg tablet (Lipitor) 10 mg PO QAM #90 tabs 03/25/22 umeclidinium 62.5 mcg/actuation 1 inh inhalation QAM #30 ea 04/21/22 blister powder for inhalation (Incruse Ellipta) amitriptyline 50 mg tablet 50 mg PO HS #90 tabs 04/30/22 albuterol sulfate 90 mcg/actuation 1 inh inhalation QID PRN shortness 05/04/22 aerosol inhaler of breath or wheezing 90 days #20.1 grams calcitriol 0.25 mcg capsule 0.25 mcg PO QAM #90 caps 05/27/22 venlafaxine 150 mg 150 mg PO QAM #90 caps 08/07/22 capsule,extended release 24 hr spironolactone 50 mg tablet 50 mg PO DAILY #90 tabs 10/12/22 Results & Data (ED) Vital Signs Vital Signs - 24 hr 06/28/23 18:25 06/28/23 18:28 06/28/23 18:32 Temperature 36.6 C Temperature Source Temporal Artery Scan Pulse Rate 130 H 130 H Pulse Rate [Apical] Pulse Rate from SpO2 Sensor Pulse Rhythm Regular Pulse Strength Normal Respiratory Rate 20 Respiratory Effort / Characteristics Non-Labored Spontaneous Respiratory Depth Normal Blood Pressure 120/93 120/93 Blood Pressure [Left Arm] Blood Pressure Mean 109 102 Blood Pressure Mean [Left Arm] Blood Pressure Position Sitting Pulse Oximetry 91 Oxygen Delivery Method Room Air Oxygen Flow Rate Sepsis Recent Fever Within 48 Hours No Sepsis New/Unexplained Change in Mental Status N/A Sepsis Action Taken by Nursing No Action Required Oxygen Flow Rate - Titration Pulse Oximetry Post Tiitration 06/28/23 18:45 06/28/23 18:48 06/28/23 19:00 Temperature Temperature Source Pulse Rate Pulse Rate [Apical] 131 H 134 H Pulse Rate from SpO2 Sensor Pulse Rhythm Pulse Strength Respiratory Rate 22 22 Respiratory Effort / Characteristics Respiratory Depth Blood Pressure Blood Pressure [Left Arm] Blood Pressure Mean Blood Pressure Mean [Left Arm] Blood Pressure Position Pulse Oximetry 92 89 L 95 Oxygen Delivery Method Nasal Cannula Room Air Nasal Cannula Oxygen Flow Rate 2 0 2 Sepsis Recent Fever Within 48 Hours Sepsis New/Unexplained Change in Mental Status Sepsis Action Taken by Nursing Oxygen Flow Rate - Titration 2 Pulse Oximetry Post Tiitration 92 06/28/23 19:15 06/28/23 19:30 06/28/23 19:45 Temperature Temperature Source Pulse Rate Pulse Rate [Apical] 115 H 119 H 130 H Pulse Rate from SpO2 Sensor Pulse Rhythm Pulse Strength Respiratory Rate 22 22 Respiratory Effort / Characteristics Respiratory Depth Blood Pressure Blood Pressure [Left Arm] 140/95 Blood Pressure Mean Blood Pressure Mean [Left Arm] 110 Blood Pressure Position Pulse Oximetry 98 98 99 Oxygen Delivery Method Nasal Cannula Nasal Cannula Oxygen Flow Rate 2 2 Sepsis Recent Fever Within 48 Hours Sepsis New/Unexplained Change in Mental Status Sepsis Action Taken by Nursing Oxygen Flow Rate - Titration Pulse Oximetry Post Tiitration 06/28/23 19:48 06/28/23 19:56 06/28/23 20:00 Temperature Temperature Source Pulse Rate 126 H Pulse Rate [Apical] 126 H Pulse Rate from SpO2 Sensor Pulse Rhythm Pulse Strength Respiratory Rate 22 Respiratory Effort / Characteristics Respiratory Depth Blood Pressure 140/95 Blood Pressure [Left Arm] 136/81 Blood Pressure Mean 112 Blood Pressure Mean [Left Arm] 99 Blood Pressure Position Pulse Oximetry 98 97 Oxygen Delivery Method Nasal Cannula Oxygen Flow Rate 2 Sepsis Recent Fever Within 48 Hours Sepsis New/Unexplained Change in Mental Status Sepsis Action Taken by Nursing Oxygen Flow Rate - Titration Pulse Oximetry Post Tiitration 06/28/23 20:12 06/28/23 20:15 06/28/23 20:30 Temperature Temperature Source Pulse Rate Pulse Rate [Apical] 114 H 119 H Pulse Rate from SpO2 Sensor Pulse Rhythm Pulse Strength Respiratory Rate 22 22 Respiratory Effort / Characteristics Respiratory Depth Blood Pressure 136/81 Blood Pressure [Left Arm] 184/101 H Blood Pressure Mean 107 Blood Pressure Mean [Left Arm] 128 Blood Pressure Position Pulse Oximetry 93 94 Oxygen Delivery Method Nasal Cannula Oxygen Flow Rate Sepsis Recent Fever Within 48 Hours Sepsis New/Unexplained Change in Mental Status Sepsis Action Taken by Nursing Oxygen Flow Rate - Titration Pulse Oximetry Post Tiitration 06/28/23 20:42 06/28/23 20:45 06/28/23 21:00 Temperature Temperature Source Pulse Rate Pulse Rate [Apical] 121 H 117 H Pulse Rate from SpO2 Sensor Pulse Rhythm Pulse Strength Respiratory Rate 22 22 Respiratory Effort / Characteristics Respiratory Depth Blood Pressure 158/97 H Blood Pressure [Left Arm] 158/97 H 120/94 Blood Pressure Mean 118 Blood Pressure Mean [Left Arm] 117 102 Blood Pressure Position Pulse Oximetry 93 94 Oxygen Delivery Method Nasal Cannula Nasal Cannula Oxygen Flow Rate 2 Sepsis Recent Fever Within 48 Hours Sepsis New/Unexplained Change in Mental Status Sepsis Action Taken by Nursing Oxygen Flow Rate - Titration Pulse Oximetry Post Tiitration 06/28/23 21:00 06/28/23 21:10 06/28/23 21:14 Temperature Temperature Source Pulse Rate 109 H 110 H Pulse Rate [Apical] Pulse Rate from SpO2 Sensor 90 Pulse Rhythm Pulse Strength Respiratory Rate 22 Respiratory Effort / Characteristics Respiratory Depth Blood Pressure 120/94 194/108 H 194/108 H Blood Pressure [Left Arm] Blood Pressure Mean 102 123 Blood Pressure Mean [Left Arm] Blood Pressure Position Pulse Oximetry 94 Oxygen Delivery Method Oxygen Flow Rate Sepsis Recent Fever Within 48 Hours Sepsis New/Unexplained Change in Mental Status Sepsis Action Taken by Nursing Oxygen Flow Rate - Titration Pulse Oximetry Post Tiitration 06/28/23 21:30 06/28/23 21:30 06/28/23 21:40 Temperature Temperature Source Pulse Rate Pulse Rate [Apical] 106 H Pulse Rate from SpO2 Sensor Pulse Rhythm Pulse Strength Respiratory Rate 20 Respiratory Effort / Characteristics Respiratory Depth Blood Pressure 152/96 H 136/84 Blood Pressure [Left Arm] 152/96 H Blood Pressure Mean 124 98 Blood Pressure Mean [Left Arm] 114 Blood Pressure Position Pulse Oximetry 94 Oxygen Delivery Method Nasal Cannula Oxygen Flow Rate 2 Sepsis Recent Fever Within 48 Hours Sepsis New/Unexplained Change in Mental Status Sepsis Action Taken by Nursing Oxygen Flow Rate - Titration Pulse Oximetry Post Tiitration Laboratory Data Attestation: I reviewed the patient's lab results. 06/28/23 18:34 06/28/23 19:25 Lab Results 06/28/23 06/28/23 06/28/23 Range/Units 18:34 18:53 19:25 WBC 10.59 (4.8-10.8) K/ul RBC 4.86 (4.20-5.40) M/uL Hgb 15.2 (12.0-16.0) g/dl Hct 45.8 (37.0-47.0) % MCV 94.2 (80.0-100.0) fL MCH 31.3 (25.0-34.0) pg MCHC 33.2 (32.0-36.0) g/dL RDW Std Deviation 50.0 H (36.4-46.3) fL RDW Coeff of Carmenza 14.5 (11.5-14.5) % Plt Count 275 (130-400) K/uL MPV 11.2 (9.4-12.4) fL Immature Gran % (Auto) 0.4 % Neut % (Auto) 75.8 % Lymph % (Auto) 13.6 % [place] % (Auto) 8.6 % Eos % (Auto) 1.3 % Baso % (Auto) 0.3 % Neut # (Auto) 8.03 H (1.40-6.50) K/uL Lymph # (Auto) 1.44 (1.20-3.40) K/uL [place] # (Auto) 0.91 H (0.11-0.59) K/uL Eos # (Auto) 0.14 (0.00-0.50) K/uL Baso # (Auto) 0.03 (0.00-0.20) K/uL Immature Gran # (Auto) 0.04 (0.01-0.20) K/uL ABG pH (7.35-7.45) ABG pCO2 (35-46) mmHg ABG pO2 (80-95) mmHg ABG HCO3 (19-24) mmol/L ABG O2 Saturation (90-95) % ABG Base Excess (-9-1.8) mEq/L Sharan Test (Pos) VBG pH 7.32 L (7.36-7.41) VBG pCO2 52 H (38-50) mmHg VBG pO2 36 mmHg VBG HCO3 27 mmol/L VBG O2 Saturation < 60.0 % VBG Base Excess -0.1 mEq/L Oxygen Given Sodium Cancelled 137 Potassium Cancelled 3.6 Chloride Cancelled 103 Carbon Dioxide Cancelled 23 Anion Gap Cancelled 11 BUN Cancelled 19 Creatinine Cancelled 1.08 Est Cr Clr Drug Dosing Cancelled 40.5 Est GFR ( Amer) Cancelled 53.8 Est GFR (Non-Af Amer) Cancelled 46.4 BUN/Creatinine Ratio Cancelled 17.6 Glucose Cancelled 152 H Estimat Average Glucose mg/dl Hemoglobin A1c (4.5-5.6) % Lactate 4.0 H* (0.4-2.0) mmol/L Calcium Cancelled 8.8 Magnesium Cancelled 1.6 L Total Bilirubin Cancelled 0.6 Direct Bilirubin Cancelled 0.1 AST Cancelled 11 L ALT Cancelled 8 Alkaline Phosphatase Cancelled 103 Troponin I High Sens Cancelled 20.5 H B-Natriuretic Peptide (0-100) pg/ml Total Protein Cancelled 6.6 Albumin Cancelled 3.7 Lipase Cancelled 6 L Procalcitonin Cancelled 0.03 TSH (0.300-4.500) uIu/ml Urine Color Yellow Urine Appearance Clear (Clear) Urine pH 5.5 (4.5-7.5) Ur Specific [place] 1.014 (1.000-1.030) Urine Protein Trace H (Negative) Urine Glucose (UA) Negative (Negative) Urine Ketones Negative (Negative) Urine Blood Negative (Negative) Urine Nitrite Positive A (Negative) Urine Bilirubin Negative (Negative) Urine Urobilinogen Negative (Negative) Ur Leukocyte Esterase Trace H (Negative) Urine WBC (Auto) 10-30 H (0-5) /hpf Urine RBC (Auto) 5-10 H (0-4) /hpf U Hyaline Cast (Auto) 1-5 (0-5) /lpf U Epithel Cells (Auto) 0-5 (0-5) /lpf Urine Bacteria (Auto) 2+ H (Negative) SARS-CoV-2 (PCR) NEGATIVE (Negative) Influenza Type A (PCR) Negative (Neg) Influenza Type B (PCR) Negative (Neg) RSV (RT-PCR) Negative (Neg) 06/28/23 06/28/23 Range/Units 19:26 21:16 WBC (4.8-10.8) K/ul RBC (4.20-5.40) M/uL Hgb (12.0-16.0) g/dl Hct (37.0-47.0) % MCV (80.0-100.0) fL MCH (25.0-34.0) pg MCHC (32.0-36.0) g/dL RDW Std Deviation (36.4-46.3) fL RDW Coeff of Carmenza (11.5-14.5) % Plt Count (130-400) K/uL MPV (9.4-12.4) fL Immature Gran % (Auto) % Neut % (Auto) % Lymph % (Auto) % [place] % (Auto) % Eos % (Auto) % Baso % (Auto) % Neut # (Auto) (1.40-6.50) K/uL Lymph # (Auto) (1.20-3.40) K/uL [place] # (Auto) (0.11-0.59) K/uL Eos # (Auto) (0.00-0.50) K/uL Baso # (Auto) (0.00-0.20) K/uL Immature Gran # (Auto) (0.01-0.20) K/uL ABG pH 7.40 (7.35-7.45) ABG pCO2 35 (35-46) mmHg ABG pO2 74 L (80-95) mmHg ABG HCO3 22 (19-24) mmol/L ABG O2 Saturation 95.6 H (90-95) % ABG Base Excess -2.5 (-9-1.8) mEq/L Sharan Test Pos (Pos) VBG pH (7.36-7.41) VBG pCO2 (38-50) mmHg VBG pO2 mmHg VBG HCO3 mmol/L VBG O2 Saturation % VBG Base Excess mEq/L Oxygen Given 2L O2 Sodium Potassium Chloride Carbon Dioxide Anion Gap BUN Creatinine Est Cr Clr Drug Dosing Est GFR ( Amer) Est GFR (Non-Af Amer) BUN/Creatinine Ratio Glucose Estimat Average Glucose 157 mg/dl Hemoglobin A1c 7.1 H (4.5-5.6) % Lactate 1.7 (0.4-2.0) mmol/L Calcium Magnesium Total Bilirubin Direct Bilirubin AST ALT Alkaline Phosphatase Troponin I High Sens 24.1 H B-Natriuretic Peptide 588 H (0-100) pg/ml Total Protein Albumin Lipase Procalcitonin TSH 0.901 (0.300-4.500) uIu/ml Urine Color Urine Appearance (Clear) Urine pH (4.5-7.5) Ur Specific [place] (1.000-1.030) Urine Protein (Negative) Urine Glucose (UA) (Negative) Urine Ketones (Negative) Urine Blood (Negative) Urine Nitrite (Negative) Urine Bilirubin (Negative) Urine Urobilinogen (Negative) Ur Leukocyte Esterase (Negative) Urine WBC (Auto) (0-5) /hpf Urine RBC (Auto) (0-4) /hpf U Hyaline Cast (Auto) (0-5) /lpf U Epithel Cells (Auto) (0-5) /lpf Urine Bacteria (Auto) (Negative) SARS-CoV-2 (PCR) (Negative) Influenza Type A (PCR) (Neg) Influenza Type B (PCR) (Neg) RSV (RT-PCR) (Neg) Administered Medications Apixaban (Apixaban 5 Mg Tablet) 5 mg PO BIDM SAGAR Stop: 07/29/23 01:25 Last Admin: 06/29/23 02:05 Dose: Not Given Documented By: SAIDA Insulin Aspart (Insulin Aspart Per Unit Charge) 0 units SC ACHS SAGAR Stop: 07/29/23 01:25 Last Admin: 06/29/23 02:10 Dose: 4 units Documented By: SAIDA Co-signed By: GIDEON Insulin Glargine (Lantus Per Unit Charge) 5 units SQ HS SAGAR Stop: 07/29/23 01:25 Last Admin: 06/29/23 02:10 Dose: 5 units Documented By: SAIDA Co-signed By: GIDEON Discontinued Medications Furosemide (Furosemide 40 Mg/4 Ml Vial) 40 mg IV ONE ONE Stop: 06/28/23 21:04 Last Admin: 06/28/23 21:27 Dose: 40 mg Documented By: ATIF Guaifenesin (Guaifenesin 600 Mg Tabcr) 600 mg PO NOW STA Stop: 06/28/23 18:52 Last Admin: 06/28/23 19:02 Dose: 600 mg Documented By: GUILLERMO Sodium Chloride (Nss) 500 mls @ 999 mls/hr IV .Q31M ONE Stop: 06/28/23 19:19 Last Infusion: 06/28/23 19:54 Dose: Infused Documented By: Admin: 06/28/23 19:02 Dose: 999 mls/hr Documented By: GUILLERMO Acetaminophen (Ofirmev) 1,000 mg in 100 mls @ 400 mls/hr IV NOW STA Stop: 06/28/23 19:03 Last Infusion: 06/28/23 19:36 Dose: Infused Documented By: Admin: 06/28/23 19:02 Dose: 400 mls/hr Documented By: GUILLERMO Ertapenem (Invanz) 10 mls @ 2 mls/min IV NOW STA Stop: 06/28/23 20:51 Last Admin: 06/28/23 21:12 Dose: 2 mls/min Documented By: ATIF Magnesium Sulfate/Dextrose (Magnesium Sulfate / D5w) 1 gm in 100 mls @ 100 mls/hr IV NOW STA Stop: 06/28/23 21:52 Last Infusion: 06/28/23 22:17 Dose: Infused Documented By: Admin: 06/28/23 21:13 Dose: 100 mls/hr Documented By: ATIF Magnesium Sulfate/Dextrose (Magnesium Sulfate / D5w) 1 gm in 100 mls @ 50 mls/hr IV ONE ONE Stop: 06/28/23 23:00 Last Infusion: 06/29/23 01:25 Dose: Infused Documented By: Admin: 06/28/23 22:16 Dose: 50 mls/hr Documented By: ATIF Albumin Human (Albumin 25%) 25 gm in 100 mls @ 50 mls/hr IV ONE ONE Stop: 06/28/23 23:03 Last Infusion: 06/28/23 23:10 Dose: Infused Documented By: Admin: 06/28/23 21:27 Dose: 50 mls/hr Documented By: ATIF Levalbuterol HCl (Levalbuterol Hcl 0.63 Mg/3 Ml Neb) 0.63 mg NEB NOW STA; Protocol Stop: 06/28/23 18:50 Last Admin: 06/28/23 19:02 Dose: 0.63 mg Documented By: GUILLERMO Methylprednisolone (Methylprednisolone 125 Mg/2 Ml Vial) 125 mg IV NOW STA Stop: 06/28/23 18:50 Last Admin: 06/28/23 19:02 Dose: 125 mg Documented By: GUILLERMO Metoprolol Tartrate (Metoprolol Tartrate 1 Mg/Ml Vial) 5 mg IV NOW STA Stop: 06/28/23 20:48 Last Admin: 06/28/23 21:14 Dose: 5 mg Documented By: ATIF Potassium Chloride (Potassium Chloride Crtab 20 Meq Tabcr) 40 meq PO NOW STA Stop: 06/28/23 21:01 Last Admin: 06/28/23 21:13 Dose: 40 meq Documented By: ATIF Imaging Data Radiologist's Impression: Chest X-Ray 06/28/23 18:49 SINGLE VIEW CHEST CLINICAL HISTORY: Sepsis. FINDINGS: An AP, portable, upright chest radiograph is compared to study dated 12/18/2022. The examination is degraded by portable technique and patient rotation. The heart is enlarged measuring atherosclerotic calcification of the thoracic aorta. There is pulmonary vascular congestion. Chronic interstitial thickening similar to previous. Scarring/atelectasis is noted at the lung bases. No airspace consolidation or large pleural effusion is identified. No pneumothorax is seen. The skeletal structures are osteopenic. The bony thorax is grossly intact. IMPRESSION: Cardiomegaly with pulmonary vascular congestion. ACT 112: Negative or not required by law. Electronically signed by: Wai Villanueva M.D. 06/28/2023 7:23 PM Discharge Plan Visit Data Chief Complaint: Shortness of Breath/Dyspnea Stated Complaint: SOB ED Provider: Mario Sparks Discharge Problem: Acute UTI, Atrial flutter with rapid ventricular response, COPD exacerbation, History of ESBL E. coli infection Patient Disposition: Admitted As Inpatient Discharge Instructions Interventions: ED Discharge Assessment Last Done: 06/28/23 23:59
[2023-06-28] MEDS: SODIUM CHLORIDE 0.9% 500 ML IV ONE (19:02)
[2023-06-28] MEDS: methylPREDNISolone 125 MG/2 ML VIAL IV STA (19:02)
[2023-06-28] MEDS: ACETAMINOPHEN 1,000 MG/100 ML VIAL IV STA (19:02)
[2023-06-28] MEDS: guaiFENesin 600 MG TABCR PO STA (19:02)
[2023-06-28] MEDS: LEVALBUTEROL HCL 0.63 MG/3 ML NEB NEB STA (19:02)
[2023-06-28 19:08] LABS: Basophils # (auto) 0.03 K/uL (0.00-0.20); Basophils % (auto) 0.3 %; Eosinophils # (auto) 0.14 K/uL (0.00-0.50); Eosinophils % (auto) 1.3 %; Hematocrit (blood only) 45.8 % (37.0-47.0); Hemoglobin 15.2 g/dl (12.0-16.0); Immature Granulocytes # (auto) 0.04 K/uL (0.01-0.20); Immature Granulocytes % (auto) 0.4 %; Lymphocytes # (auto) 1.44 K/uL (1.20-3.40); Lymphocytes % (auto) 13.6 %; Mean Corpuscular Hemoglobin 31.3 pg (25.0-34.0); Mean Corpuscular Hgb Conc 33.2 g/dL (32.0-36.0); Mean Corpuscular Volume 94.2 fL (80.0-100.0); Mean Platelet Volume 11.2 fL (9.4-12.4); Monocytes # (auto) 0.91 K/uL (0.11-0.59); Monocytes % (auto) 8.6 %; Neutrophils # (auto) 8.03 K/uL (1.40-6.50); Neutrophils % (auto) 75.8 %; Platelet Count 275 K/uL (130-400); RDW Coefficient of Variation 14.5 % (11.5-14.5); Red Blood Count 4.86 M/uL (4.20-5.40); White Blood Count 10.59 K/ul (4.8-10.8)
[2023-06-28 19:14] LABS: Appearance Urine Clear (Clear); Bacteria Urine Automated 2+ (Negative); Bilirubin Urine Negative (Negative); Blood Urine Negative (Negative); Color Urine Yellow; Epithelial Cell Urine Auto 0-5 /lpf (0-5); Glucose Urine UA Negative (Negative); Ketones Urine Negative (Negative); Leukocyte Esterase Urine Trace (Negative); Nitrite Urine Positive (Negative); Protein Urine Trace (Negative); Specific Gravity Urine 1.014 (1.000-1.030); Urobilinogen Urine Negative (Negative); pH Urine 5.5 (4.5-7.5)
--- NOTE | 2023-06-28 19:25 | XRay Report ---
SINGLE VIEW CHEST CLINICAL HISTORY: Sepsis. FINDINGS: An AP, portable, upright chest radiograph is compared to study dated 12/18/2022. The examina tion is degraded by portable technique and patient rotation. The heart is enlarged measuring atheros clerotic calcification of the thoracic aorta. There is pulmonary vascular congestion. Chronic interst itial thickening similar to previous. Scarring/atelectasis is noted at the lung bases. No airspace co nsolidation or large pleural effusion is identified. No pneumothorax is seen. The skeletal structures are osteopenic. The bony thorax is grossly intact. IMPRESSION: Cardiomegaly with pulmonary vascular congestion. ACT 112: Negative or not required by law. Electronically signed by: Wai Villanueva M.D. 06/28/2023 7:23 PM
[2023-06-28 19:40] LABS: Base Excess VBG -0.1 mEq/L; HCO3 VBG 27 mmol/L; Oxygen Saturation VBG < 60.0 %; PCO2 VBG 52 mmHg (38-50); PO2 VBG 36 mmHg; pH VBG 7.32 (7.36-7.41)
[2023-06-28 19:53] LABS: Albumin Level 3.7 gm/dl (3.4-5.0); Bilirubin Direct 0.1 mg/dl (0-0.2); Bilirubin,Total 0.6 mg/dl (0.2-1.0); Calcium 8.8 mg/dl (8.6-10.3); Magnesium 1.6 mg/dl (1.7-2.4); Potassium 3.6 mmol/L (3.5-5.1)
[2023-06-28 19:59] LABS: BUN Creatinine Ratio 17.6 (10-20); Creatinine Clr Calc Pharmacy 40.5 ml/min; Est GFR (African American) 53.8 ml/min; Est GFR (Non-African American) 46.4 ml/min; Total Protein 6.6 gm/dl (6.0-8.3)
[2023-06-28 20:05] LABS: Troponin I High Sensitivity 20.5 pg/ml (0-14)
[2023-06-28] MEDS: ERTAPENEM SODIUM 10 ML IV STA (21:12)
[2023-06-28] MEDS: MAGNESIUM SULFATE / D5W 1 GM/100 ML BAG IV STA (21:13)
[2023-06-28] MEDS: POTASSIUM CHLORIDE CRTAB 20 MEQ TABCR PO STA (21:13)
[2023-06-28] MEDS: METOPROLOL TARTRATE 1 MG/ML VIAL IV STA (21:14)
[2023-06-28 21:26] LABS: Base Excess ABG -2.5 mEq/L (-9-1.8); HCO3 ABG 22 mmol/L (19-24); Oxygen Saturation ABG 95.6 % (90-95); PCO2 ABG 35 mmHg (35-46); PO2 ABG 74 mmHg (80-95)
[2023-06-28 21:27] LABS: Allen Test Pos (Pos)
[2023-06-28] MEDS: ALBUMIN 25% 25 GM/100 ML VIAL IV ONE (21:27)
[2023-06-28] MEDS: FUROSEMIDE 40 MG/4 ML VIAL IV ONE (21:27)
--- NOTE | 2023-06-28 21:44 | History & Physical Report ---
Date of Service June 28, 2023 Assessment & Plan (1) Acute hypoxemic respiratory failure: Plan: Secondary to decompensated heart failure, history of diastolic dysfunction possibly from rapid A-fib/flutter, uncontrolled hypertension secondary to complicated UTI, no sepsis for now Encephalopathy secondary to illness, home neuropsychotropic medications contributory mild MR hyperlipidemia, on statin Rx COPD, not in acute exacerbation, patient denies cough symptoms DM 2 on oral medications, reasonable control as of recent hemoglobin A1c of 7.1 last year hx recurrent UTIs (history of ESBL) mood disorder, at baseline past tobacco abuse PCU Supplemental O2 Diuretic Rx Strict I/Os, daily weights, CHF education Update TTE, Cardiology consult Re: CHF (Patient known to [facility] Urine CS, Ertapenem given history ESBL Hold neuropsychotropic medications until patient mentation back to baseline Basal bolus insulin, ISS BG goal 1 10-1 40, carb count coverage, update hemoglobin A1c DVT prophylaxis. Eliquis DNR as per patient's prior wishes as per daughter/POA, Ms. Mariana Gomez. She requests updates providers through [phone]. Total critical care time was 40 minutes. Text document was generated using [employer] voice recognition software. It may contain grammatical or spelling errors. Kindly contact undersigned for clarification of any documentation item in question. History of Present Illness Chief Complaint: Breathing issues as per patient Primary Care Provider: Arsalan Pisano, History obtained from patient, family, and records. Limited history from patient secondary to confusion. Medical history significant for chronic diastolic heart failure (EF 55 to 60%, TTE 2021), mild MR, A-fib/atrial flutter on Eliquis, hypertension, hyperlipidemia, PVD status post surgery, COPD, DM 2 on oral medications, recurrent UTIs (history of ESBL), fibromyalgia, mood disorder, past tobacco abuse. Last confinement December 2022 for syncope secondary to A-fib with RVR. Patient noted to have worsening congestion since last week. Patient denies cough or chest pain symptoms. Not sure about fluid retention. Foul-smelling urine noted by personal care facility RN. Patient denies headache/abdominal/flank pain/hematuria symptoms. Patient confused when she has a urine infection as per daughter. Patient noted to be in rapid A-fib during stay at the ER. Lowest O2 sats 80s on room air. IV Lopressor, Solu-Medrol, and Ertapenem administered at the ER. Medical History as above Surgical History : Renal artery stent placement, RONNELL, oophorectomy, bladder/urethra procedure Family History : Breast cancer, stroke Personal/Social history : Past tobacco abuse, no EtOH intake, personal long term resident Allergies Allergy/AdvReac Type Severity Reaction Status Date / Time SLOANGE Inhibitors Allergy Unknown [facility] Verified 06/28/23 20:17 MED LIST alendronate sodium Allergy Unknown [facility] Verified 06/28/23 20:17 MED LIST ARB-Angiotensin Receptor Allergy Unknown Unknown Verified 06/28/23 20:17 Antagonist cisapride Allergy Unknown UNKNOWN Verified 06/28/23 20:17 diazepam Allergy Unknown [facility] Verified 06/28/23 20:17 MED LIST nabumetone Allergy Unknown [facility] Verified 06/28/23 20:17 MED LIST NSAIDS (Non-Steroidal Allergy Unknown [facility] Verified 06/28/23 20:17 Anti-Inflamma MED LIST phenazopyridine Allergy Unknown [facility] Verified 06/28/23 20:17 MED LIST Sulfa (Sulfonamide Allergy Unknown [facility] Verified 06/28/23 20:17 Antibiotics) MED LIST sulindac Allergy Unknown [facility] Verified 06/28/23 20:17 MED LIST duloxetine AdvReac Severe Diarrhea Verified 06/28/23 20:17 Home Medications Medication Instructions Recorded Confirmed Type docusate sodium 100 mg capsule 200 mg PO BIDM 12/24/19 06/28/23 History (Stool Softener) acetaminophen 325 mg tablet 650 mg PO Q6H PRN PAIN/FEVER 01/07/22 06/28/23 History (Tylenol) atorvastatin 10 mg tablet (Lipitor) 10 mg PO QAM #90 tabs 03/25/22 06/28/23 Rx umeclidinium 62.5 mcg/actuation 1 inh inhalation QAM #30 ea 04/21/22 06/28/23 Rx blister powder for inhalation (Incruse Ellipta) amitriptyline 50 mg tablet 50 mg PO HS #90 tabs 04/30/22 06/28/23 Rx albuterol sulfate 90 mcg/actuation 1 inh inhalation QID PRN shortness 05/04/22 06/28/23 Rx aerosol inhaler of breath or wheezing 90 days #20.1 grams calcitriol 0.25 mcg capsule 0.25 mcg PO QAM #90 caps 05/27/22 06/28/23 Rx fluticasone furoate 100 1 ea inhalation QAM 08/03/22 06/28/23 History mcg-vilanterol 25 mcg/dose inhalation powder (Breo Ellipta) metformin 500 mg tablet,extended 500 mg PO QAM 08/03/22 06/28/23 History release 24 hr venlafaxine 150 mg 150 mg PO QAM #90 caps 08/07/22 06/28/23 Rx capsule,extended release 24 hr furosemide 40 mg tablet (Lasix) 40 mg PO 3XWK 10/12/22 06/28/23 History spironolactone 50 mg tablet 50 mg PO DAILY #90 tabs 10/12/22 06/28/23 Rx dextromethorphan-guaifenesin 30 1 tab PO Q12H PRN Congestion 12/18/22 06/28/23 History mg-600 mg tablet extended hr (Mucinex DM) apixaban 5 mg tablet (Eliquis) 5 mg PO BIDM 06/28/23 06/28/23 History metoprolol tartrate 100 mg tablet 100 mg PO BIDM 06/28/23 06/28/23 History Past Med/Surg History Medical History S/P transesophageal echocardiogram ([facility]) longterm resident [facility] Venous stasis dermatitis of both lower extremities Asymptomatic bacteriuria Atrial flutter Stress incontinence Non-functioning kidney Renal artery stenosis Diastolic CHF Dizziness Rapid atrial fibrillation Peripheral neuropathy Hyperlipidemia Hypertension Stage 3 chronic kidney disease Depression Type 2 diabetes mellitus Fibromyalgia Surgical History History of stent insertion of renal artery (~12/03/16) Family History Father Prostate cancer Sister Breast cancer Brother Lung cancer Sister Lung cancer Denies family history of Ovarian cancer Myocardial infarction Colorectal cancer Social History Smoking Status: Former smoker Tobacco Type: Cigarettes Age Started Using Tobacco: 21; packs per day: 0.25; Cigarettes Per Day: 5; Second Hand Exposure: No; Do You Dip or Chew Tobacco: No; Hx Alcohol Use: No Hx Substance Use: No Preferred Language: Georgian Communication Ability: Effective Visual Impairment: Limited Hearing Ability: Hard of Hearing Safety And Security Manager Required: No Beliefs That Will Affect Care: None marital status: / Current Living Situation: Personal Care Facility Current Living Situation Comment: [facility] current occupational status: retired current occupation: retired from career working on her farm Other Information That Helps Us Care for You: No Feels Safe at Home: Yes Safety Concerns: Feels Safe At This Time Childhood Exposure to Second-Hand Smoke: Yes Diet: regular Dental Care, Regularly: No Physical Activity Frequency: Does not Exercise Seatbelt Use: always Sunscreen Use: No Assistive Devices: Glasses and Walker Review of Systems Review of Systems: Could not be reliably obtained secondary to disorientation Physical Exam Physical Exam: GENERAL: Comfortable, disoriented, morbidly obese, audible expiratory wheezes, no respiratory distress SKIN: Normal color, warm HEENT: [place] palpebral conjunctivae, no ptosis, dry buccal mucosa, nasal cannula in place NECK : Supple, no tenderness CHEST : Decreased breath sounds, scattered expiratory wheezes, no tenderness HEART : Irregular, no obvious murmurs ABDOMEN: Some distention, nontender EXTREMITIES : Minimal LE swelling, no LE tenderness, no other conspicuous deformities noted NEUROLOGIC : Disoriented, no facial asymmetry, gait and stance not assessed Results & Data Results & Data Vital Signs (Past 12 Hours) Vital Signs Temp Pulse Pulse Resp BP BP Pulse Ox 06/28/23 21:30 106 H 20 152/96 H 94 06/28/23 21:14 110 H 194/108 H 06/28/23 21:00 117 H 22 120/94 94 06/28/23 20:45 121 H 22 158/97 H 93 06/28/23 20:30 119 H 22 184/101 H 94 06/28/23 20:15 114 H 22 93 06/28/23 20:00 126 H 22 136/81 97 06/28/23 19:48 126 H 98 06/28/23 19:45 130 H 99 06/28/23 19:30 119 H 22 140/95 98 06/28/23 19:15 115 H 22 98 06/28/23 19:00 134 H 22 95 06/28/23 18:48 89 L 06/28/23 18:45 131 H 22 92 06/28/23 18:32 36.6 C 130 H 20 120/93 91 06/28/23 18:25 130 H O2 Del Method O2 Flow Rate 06/28/23 21:30 Nasal Cannula 2 06/28/23 21:14 06/28/23 21:00 Nasal Cannula 2 06/28/23 20:45 Nasal Cannula 06/28/23 20:30 06/28/23 20:15 Nasal Cannula 06/28/23 20:00 06/28/23 19:48 Nasal Cannula 2 06/28/23 19:45 06/28/23 19:30 Nasal Cannula 2 06/28/23 19:15 Nasal Cannula 2 06/28/23 19:00 Nasal Cannula 2 06/28/23 18:48 Room Air 0 06/28/23 18:45 Nasal Cannula 2 06/28/23 18:32 Room Air 06/28/23 18:25 Laboratory Results Laboratory Results WBC 10.59 K/ul (4.8-10.8) 06/28/23 18:34 RBC 4.86 M/uL (4.20-5.40) 06/28/23 18:34 Hgb 15.2 g/dl (12.0-16.0) 06/28/23 18:34 Hct 45.8 % (37.0-47.0) 06/28/23 18:34 MCV 94.2 fL (80.0-100.0) 06/28/23 18:34 MCH 31.3 pg (25.0-34.0) 06/28/23 18:34 MCHC 33.2 g/dL (32.0-36.0) 06/28/23 18:34 RDW Std Deviation 50.0 fL (36.4-46.3) H 06/28/23 18:34 RDW Coeff of [place] 14.5 % (11.5-14.5) 06/28/23 18:34 Plt Count 275 K/uL (130-400) 06/28/23 18:34 MPV 11.2 fL (9.4-12.4) 06/28/23 18:34 Immature Gran % (Auto) 0.4 % 06/28/23 18:34 Neut % (Auto) 75.8 % 06/28/23 18:34 Lymph % (Auto) 13.6 % 06/28/23 18:34 [place] % (Auto) 8.6 % 06/28/23 18:34 Eos % (Auto) 1.3 % 06/28/23 18:34 Baso % (Auto) 0.3 % 06/28/23 18:34 Neut # (Auto) 8.03 K/uL (1.40-6.50) H 06/28/23 18:34 Lymph # (Auto) 1.44 K/uL (1.20-3.40) 06/28/23 18:34 [place] # (Auto) 0.91 K/uL (0.11-0.59) H 06/28/23 18:34 Eos # (Auto) 0.14 K/uL (0.00-0.50) 06/28/23 18:34 Baso # (Auto) 0.03 K/uL (0.00-0.20) 06/28/23 18:34 Immature Gran # (Auto) 0.04 K/uL (0.01-0.20) 06/28/23 18:34 ABG pH 7.40 (7.35-7.45) 06/28/23 21:16 ABG pCO2 35 mmHg (35-46) 06/28/23 21:16 ABG pO2 74 mmHg (80-95) L 06/28/23 21:16 ABG HCO3 22 mmol/L (19-24) 06/28/23 21:16 ABG O2 Saturation 95.6 % (90-95) H 06/28/23 21:16 ABG Base Excess -2.5 mEq/L (-9-1.8) 06/28/23 21:16 Sharan Test Pos (Pos) 06/28/23 21:16 VBG pH 7.32 (7.36-7.41) L 06/28/23 19:25 VBG pCO2 52 mmHg (38-50) H 06/28/23 19:25 VBG pO2 36 mmHg 06/28/23 19:25 VBG HCO3 27 mmol/L 06/28/23 19:25 VBG O2 Saturation < 60.0 % 06/28/23 19:25 VBG Base Excess -0.1 mEq/L 06/28/23 19:25 Oxygen Given 2L O2 06/28/23 21:16 Sodium 137 mmol/L (136-145) 06/28/23 19:25 Potassium 3.6 mmol/L (3.5-5.1) 06/28/23 19:25 Chloride 103 mmol/L (98-107) 06/28/23 19:25 Carbon Dioxide 23 mmol/L (21-32) 06/28/23 19:25 Anion Gap 11 (3-11) 06/28/23 19:25 BUN 19 mg/dl (6-23) 06/28/23 19:25 Creatinine 1.08 mg/dl (0.6-1.2) 06/28/23 19:25 Est Cr Clr Drug Dosing 40.5 ml/min 06/28/23 19:25 Est GFR ( Amer) 53.8 ml/min 06/28/23 19: Est GFR (Non-Af Amer) 46.4 ml/min 06/28/23 19:25 BUN/Creatinine Ratio 17.6 (10-20) 06/28/23 19: Glucose 152 mg/dl (70-99(Fasting)) H 06/28/23 19:25 Lactate 1.7 mmol/L (0.4-2.0) 06/28/23 21:16 Calcium 8.8 mg/dl (8.6-10.3) 06/28/23 19: Magnesium 1.6 mg/dl (1.7-2.4) L 06/28/23 19:25 Total Bilirubin 0.6 mg/dl (0.2-1.0) 06/28/23 19: Direct Bilirubin 0.1 mg/dl (0-0.2) 06/28/23 19:25 AST 11 U/L (13-39) L 06/28/23 19:25 ALT 8 U/L (7-52) 06/28/23 19:25 Alkaline Phosphatase 103 U/L (34-104) 06/28/23 19:25 Troponin I High Sens 20.5 pg/ml (0-14) H 06/28/23 19:25 B-Natriuretic Peptide 588 pg/ml (0-100) H 06/28/23 19:26 Total Protein 6.6 gm/dl (6.0-8.3) 06/28/23 19:25 Albumin 3.7 gm/dl (3.4-5.0) 06/28/23 19:25 Lipase 6 U/L (11-82) L 06/28/23 19:25 Procalcitonin 0.03 ng/ml (0-0.5) 06/28/23 19:25 Urine Color Yellow 06/28/23 18:53 Urine Appearance Clear (Clear) 06/28/23 18:53 Urine pH 5.5 (4.5-7.5) 06/28/23 18:53 Ur Specific [place] 1.014 (1.000-1.030) 06/28/23 18:53 Urine Protein Trace (Negative) H 06/28/23 18:53 Urine Glucose (UA) Negative (Negative) 06/28/23 18:53 Urine Ketones Negative (Negative) 06/28/23 18:53 Urine Blood Negative (Negative) 06/28/23 18:53 Urine Nitrite Positive (Negative) A 06/28/23 18:53 Urine Bilirubin Negative (Negative) 06/28/23 18:53 Urine Urobilinogen Negative (Negative) 06/28/23 18:53 Ur Leukocyte Esterase Trace (Negative) H 06/28/23 18:53 Urine WBC (Auto) 10-30 /hpf (0-5) H 06/28/23 18:53 Urine RBC (Auto) 5-10 /hpf (0-4) H 06/28/23 18:53 U Hyaline Cast (Auto) 1-5 /lpf (0-5) 06/28/23 18:53 U Epithel Cells (Auto) 0-5 /lpf (0-5) 06/28/23 18:53 Urine Bacteria (Auto) 2+ (Negative) H 06/28/23 18:53 Impressions Chest X-Ray 06/28/23 18:49 SINGLE VIEW CHEST CLINICAL HISTORY: Sepsis. FINDINGS: An AP, portable, upright chest radiograph is compared to study dated 12/18/2022. The examination is degraded by portable technique and patient rotation. The heart is enlarged measuring atherosclerotic calcification of the thoracic aorta. There is pulmonary vascular congestion. Chronic interstitial thickening similar to previous. Scarring/atelectasis is noted at the lung bases. No airspace consolidation or large pleural effusion is identified. No pneumothorax is seen. The skeletal structures are osteopenic. The bony thorax is grossly intact. IMPRESSION: Cardiomegaly with pulmonary vascular congestion. ACT 112: Negative or not required by law. Electronically signed by: Wai Villanueva M.D. 06/28/2023 7:23 PM Diagnostic Findings EKG as per my interpretation : Rate 130, sinus tachycardia, LAD, LAFB, LVH,, septal infarct, ST depression inferior and anterolateral leads
[2023-06-28 21:57] LABS: Troponin I High Sensitivity 24.1 pg/ml (0-14)
[2023-06-28 22:06] LABS: Thyroid Stimulating Hormone 0.901 uIu/ml (0.300-4.500)
[2023-06-28] MEDS: MAGNESIUM SULFATE / D5W 1 GM/100 ML BAG IV ONE (22:16)
[2023-06-28 22:18] LABS: Estimated Average Glucose 157 mg/dl; Hemoglobin A1C 7.1 % (4.5-5.6)
[2023-06-28 23:21] LABS: Influenza A virus by PCR Negative (Neg); Influenza B virus by PCR Negative (Neg); RSV by PCR Negative (Neg); SARS CoV2 RNA(COVID-19) Ceph NEGATIVE (Negative)
[2023-06-29] MEDS ORDERED: CARBOHYDRATES FOR HYPOGLYCEMIA PO PRN (01:26)
[2023-06-29] MEDS ORDERED: ACETAMINOPHEN 325 MG TAB PO PRN (01:26)
[2023-06-29] MEDS ORDERED: GLUCOSE 10 TAB/TUBE PO PRN (01:26)
[2023-06-29] MEDS ORDERED: NITROGLYCERIN SL 0.4 MG/TAB TAB SL PRN (01:26)
[2023-06-29] MEDS ORDERED: PROMETHAZINE HCL 6.25 MG in SODIUM CHLORIDE 0.9% 50 ML IV PRN (01:26)
[2023-06-29] MEDS ORDERED: DEXTROSE 50% 50 ML SYRINGE IV PRN (01:26)
[2023-06-29] MEDS ORDERED: GLUCOSE 40% GEL 15 GM TUBE PO PRN (01:26)
[2023-06-29] MEDS ORDERED: GLUCAGON FOR INJ 1 MG VIAL SQ PRN (01:26)
[2023-06-29] MEDS: APIXABAN 5 MG TABLET PO SCH (02:05)
[2023-06-29] MEDS: LANTUS PER UNIT CHARGE SQ SCH (02:10)
[2023-06-29] MEDS: INSULIN ASPART PER UNIT CHARGE SC SCH (02:10)
[2023-06-29 05:26] LABS: Hematocrit (blood only) 41.6 % (37.0-47.0); Hemoglobin 13.9 g/dl (12.0-16.0); Mean Corpuscular Hemoglobin 30.9 pg (25.0-34.0); Mean Corpuscular Hgb Conc 33.4 g/dL (32.0-36.0); Mean Corpuscular Volume 92.4 fL (80.0-100.0); Mean Platelet Volume 9.8 fL (9.4-12.4); Platelet Count 205 K/uL (130-400); RDW Coefficient of Variation 14.3 % (11.5-14.5); RDW Standard Deviation 48.5 fL (36.4-46.3); White Blood Count 5.61 K/ul (4.8-10.8)
[2023-06-29 05:30] LABS: BUN Creatinine Ratio 20.6 (10-20); Calcium 9.1 mg/dl (8.6-10.3); Creatinine Clr Calc Pharmacy 41.1 ml/min; Est GFR (African American) 57.7 ml/min; Est GFR (Non-African American) 49.8 ml/min; Magnesium 2.3 mg/dl (1.7-2.4); Potassium 3.7 mmol/L (3.5-5.1)
[2023-06-29 06:30] LABS: Basophils # (auto) 0.01 K/uL (0.00-0.20); Basophils % (auto) 0.2 %; Immature Granulocytes # (auto) 0.02 K/uL (0.01-0.20); Immature Granulocytes % (auto) 0.4 %; Lymphocytes # (auto) 0.33 K/uL (1.20-3.40); Lymphocytes % (auto) 5.9 %; Monocytes # (auto) 0.14 K/uL (0.11-0.59); Monocytes % (auto) 2.5 %; Neutrophils # (auto) 5.11 K/uL (1.40-6.50)
--- OUTSIDE RECORDS SUMMARY | 2023-06-29 07:23 | External Medical Summary | Summary of Care ---
Author Name Unknown Organization [facility] Address [address] [place] [address] Phone [phone] Care Team Providers Care Enamel Shader Name Role Phone Arsalan Pisano Primary Care Provider Reason for Visit * Reason Comments Follow Up Encounter Details Date Type Department Care Team (Late st Contact Info) Description 06/23/2023 11:50 AM EDT Office Visit Vascular Surgery, [facility] [address] [facility] [place] [id number] Dorian Dunne MD [address] [place] [address] Renal artery stenosis (HCC)* Allergies Active Allergy Reactions Criticality Noted Date Comments Alendronate 07/11/2002 Fosamax, severe cramping and diarrhea Sulindac 02/20/2010 Cisapride 02/20/2010 Phenazopyridine Hcl 09/08/2017 Relaform 02/20/2010 Sulfa Antibiotics 09/08/2017 Valium 02/20/2010 documented as of this encounter (statuses as of 06/23/2023) Medications Medication Sig Dispensed Refills Start Date End Date Status Incruse Ellipta 62.5 MCG/ACT Inhalation Aerosol Powder Breath Activated (umeclidinium Pinnacle) Inhale 1 Puff by mouth in the morning. 0 Active Mucinex DM 30-600 MG Oral Tablet Extended Release 12 Hour TAKE ONE TABLET BY MOUTH TWICE A DAY NEEDED 60 Tablet 5 09/28/2022 09/28/2023 Active Acetaminophen 325 MG Oral Tablet (Tylenol) TAKE TWO TABLETS BY MOUTH EVERY 6 HOURS 100 Tablet 09/28/2022 09/28/2023 Active Docusate Sodium 100 MG Oral Capsule (Colace) TAKE TWO CAPSULES BY MOUTH TWICE A DAY 360 Capsule 09/28/2022 09/28/2023 Active Albuterol Sulfate HFA 108 (90 Base) MCG/ACT Inhalation Aerosol Solution INHALE ONE PUFF BY MOUTH FOUR TIMES A DAY NEEDED 6.7 g 09/28/2022 09/28/2023 Active Breo Ellipta 100-25 MCG/ACT Inhalation Aerosol Powder Breath Activated INHALE ONE PUFF BY MOUTH EVERY DAY 180 Each 09/28/2022 09/28/2023 Active Apixaban 5 MG Oral Tablet (Eliquis) TAKE ONE TABLET BY MOUTH TWICE A DAY 180 Tablet 09/28/2022 09/28/2023 Active Calcitriol 0.25 MCG Oral Capsule (Rocaltrol) TAKE ONE CAPSULE BY MOUTH EVERY DAY 90 Capsule 09/28/2022 09/28/2023 Active Atorvastatin Calcium 10 MG Oral Tablet (Lipitor) TAKE ONE TABLET BY MOUTH EVERY DAY 90 Tablet 09/28/2022 09/28/2023 Active Spironolactone 100 MG Oral Tablet (Aldactone) TAKE ONE TABLET BY MOUTH EVERY DAY 90 Tablet 09/28/2022 09/28/2023 Active metFORMIN HCl ER 500 MG Oral Tablet Extended Release 24 Hour (Glucophage XR) TAKE ONE TABLET BY MOUTH EVERY DAY 90 Tablet 09/28/2022 09/28/2023 Active Amitriptyline HCl 50 MG Oral Tablet (Elavil) TAKE ONE TABLET BY MOUTH AT BEDTIME 90 Tablet 09/28/2022 09/28/2023 Active Metoprolol Tartrate 100 MG Oral Tablet (Lopressor) TAKE ONE TABLET BY MOUTH TWICE A DAY 180 Tablet 09/28/2022 Active Venlafaxine HCl ER 150 MG Oral Capsule Extended Release 24 Hour (Effexor XR) TAKE ONE CAPSULE BY MOUTH EVERY DAY 90 Capsule 09/02/2022 09/02/2023 Active Furosemide 40 MG Oral Tablet (Lasix) Take 1 Tablet by mouth in the morning. Wednesday/Wednesday and Wednesday only. 0 Active documented as of this encounter (statuses as of 06/23/2023) Active Problems Problem Noted Date Diagnosed Date Other specified peripheral vascular diseases Type 2 diabetes mellitus wit h hemoglobin A1c goal of less than 8.0% 11/20/2022 COPD, severity to be determined 09/01/2022 Last Assessment & Plan: Current Status : "Stable" for patient / At or near baseline Degree of Condition Awareness: Demonstrates very good awareness of condition, disease course, and prognosis "RED FLAG" COPD symptoms: o Increased shortness of breath at rest ("I struggle to breathe even when watching TV", "I have to wear or turn up my oxygen just when I'm sitting on the couch") o Cough ("I get a different kind of cough than what I' have every day") Medication Regimen o Class D, Asthma/COPD Overlap - Inhaled Glucocorticoid-LABA Combination Inhaler Self-Management plan o Prednisone 40mg daily for 5 days Rx Exacerbation plan o Solumedrol 40mg IM/IV Stable. 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 Medication Regimen: o Beta Devorah Therapy: Metoprolol Tartrate o SOLANGE Inhibitor/ARB Therapy: Other: none o Diuretic therapy: Lasix Aldactone Self - Management Plan o Double dose of Furosemide for 3 days Exacerbation Plan o BMP o Chest X-Ray Appears euvolemic today. Does not monitor weights. Order placed for routine blood work COPD exacerbation 07/06/2022 Last Assessment & Plan: COPD "RED FLAG" COPD symptoms: o Cough, fever, TRINIDAD Medication Regimen o Class D, Asthma/COPD Overlap - Inhaled Glucocorticoid-LABA Combination Inhaler o Exacerbation Mgt: o No exacerbations in the past 3 months o Rescue Kit in place in Medication List: No. o Used rescue kit in the past month: No o Required IM or IV steroids (Solumedrol) since last visit: No Longstanding persistent atrial fibrillation 06/2022 Last Assessment & Plan: Rate controlled -continue Eliquis, metoprolol Dyslipidemia, goal LDL below 100 08/24/2013 Last Assessment & Plan: Continue atorvastatin Type 2 diabetes mellitus wit h hemoglobin A1c goal of less than 7.0% 02/09/2011 Overview: ICD-10 update of inactive term Last Assessment & Plan: Current Status: "Stable" for patient / At or near baseline Degree of Condition Awareness: Demonstrates very good awareness of condition, disease course, and prognosis "RED FLAG" Diabetic symptoms: o none Goal HgbA1c o <7 Diabetic Complications o Vascular (examples: PVD, PAD, CAD, CVA) Medication Regimen o Metformin DM Secondary Prevention o Moderate-High Intensity Statin Does not check blood sugars. Will get hemoglobin A1c Hypopotassemia 06/21/2010 Heart failure, diastolic, with acute decompensat ion 06/20/2010 Heart failure, diastolic, due to HTN 06/20/2010 Anemia 06/20/2010 Last Assessment & Plan: Order placed for basic blood work Backache 06/20/2010 History of tobacco use 06/20/2010 ACEI/ARB contraindicated 06/03/2010 Kidney disease, chronic, stage III (GFR 30-59 ml /min) 10/24/2009 Overview: Per CKD Protocol, #1 Obesity, Class II, BMI 35-39.9, isolated (see ac tual BMI) 09/16/2009 Overview: Per Obesity Protocol, #19 HTN, goal below 140/90 02/21/2009 Overview: Modified per HTN protocol #16. ADVANCE DIRECTIVE INFORMATION 03/10/2006 Overview: Pt has a booklet at home. Menopause 06/16/2001 Anxiety state 06/02/2001 Last Assessment & Plan: Stable on venlaxafine, amitriptyline Osteoporosis 12/15/2000 Esophageal reflux 12/15/2000 Myalgia and myositis 12/15/2000 Idiopathic scoliosis 12/15/2000 documented as of this encounter (statuses as of 06/23/2023) Resolved Problems Problem Noted Date Diagnosed Date Resolved Date Ischemic nephropathy with at herosclerotic renal artery stenosis 01/04/2017 07/06/2022 Fibromyalgia 05/29/2013 05/29/2013 Heart failure, type unknown 06/22/2010 02/21/2014 HYPERTENSION NOS 12/15/2000 06/19/2009 documented as of this encounter (statuses as of 06/23/2023) Immunizations Name Administration Dates Next Due Pneumococcal Polysaccharide PPV23 (Pneumovax) 05/18/2010 Seasonal Influenza, Quad, Na wendi (Flumist) 02/16/2018 Seasonal Influenza, Split, I IV3, With Preserve, Inj 01/04/2014,01/12/2013,12/08/2011,01/06,05/18/2010 TD, Preservative Free 07/13/2008 TDAP (age 10 and older)(Boostrix) 08/25/2013 documented as of this encounter Social History Tobacco Use Types Packs/Day Years Used Date Smoking Tobacco: Every Day Cigarettes Smokeless Tobacco: Never Tobacco Cessation:Ready to Q uit: No; Counseling Given: No Comments:06/23/2023 6 cigarettes per day, declined phamplet Alcohol Use Standard Drinks/Week Comments No 0 (1 standard drink = 0.6 oz pur e alcohol) Sex and Gender Information Value Date Recorded Sex Assigned at Not on file Gender Identity Not on file Sexual Orientation Not on file Job Start Date Occupation Industry Not on file Not on file Not on file documented as of this encounter Last Filed Vital Signs Vital Sign Reading Time Taken Comments Blood Pressure 118/72 06/23/2023 10:42 AM EDT Pulse 82 06/23/2023 10:42 AM EDT Temperature 36.6 C (97.8 F) 06/23/2023 10:42 AM E DT Respiratory Rate - - Oxygen Saturation - - Inhaled Oxygen Concentration - - Weight 85 kg (187 lb 8 oz) 06/23/2023 10:42 AM E DT Height 160 cm (5' 3") 06/23/2023 10:42 AM EDT Body Mass Index 33.21 06/23/2023 10:42 AM EDT documented in this encounter Functional Status Functional Status Response Date of Assess ment Are you deaf or do you have serious difficulty h earing? No 12/03/2016 Are you blind or do you have serious difficulty seeing, even when wearing glasses? No 12/03/2016 Do you have serious difficul ty walking or climbing stairs? (5 years old or older) Yes 12/03/2016 Do you have difficulty dress ing or bathing? (5 years old or older) No 12/03/2016 Because of a physical, menta l, or emotional condition, do you have difficulty doing errands alone such as visiting a doctor s office or shopping? (15 years old or older) No 12/04/19 17 Cognitive Status Response Date of Assessm ent Because of a physical, menta l, or emotional condition, do you have serious difficulty concentrating, remembering, or making decisions? (5 years old or older) No 12/03/2016 documented as of this encounter Progress Notes * Arsalan Padgett PA-C - 06/23/2023 11:50 AM EDT Date of Service: 06/23/2023 11:02 AM Paula Alvarez is a 87 year old female. Referring Physician: Nile Alan III, MD Chief Complaint: Surveillance of renal artery stenting Now resides at [facility] Has had some eye issues over the last yr Accompanied by daughter and grand daughter HPI: Pleasant female who reports history of resistant HTN (5 agents) with stage [address] CKD. [address] to [address] Quinones (nephrology) at [facility] for evaluation and found to have a atrophic right kidney and LRA stenosis. Subsequently referred to [facility] - Vascular Surgery for evaluation and possible intervention. Angiographynoted an OCCLUDED right renal artery and left main and accessory renal artery stenosis. On 12/03/16 Dr. Kidd performed left main and accessory renal artery stent placement for uncontrolled HTN, renal insufficiency, and atrophic RIGHT kidney 12/03/16. Improvement in BP post-procedure, and was able to have clonidine and lasix discontinued. RENAL ARTERY STENOSIS Nl BP today and nl recent renal function On 2 BP meds Follows with filer and sander, Dr. Abdiel Quinones. Current Outpatient Medications Medication Sig Dispense Refill Incruse Ellipta 62.5 MCG/ACT Inhalation Aerosol Powder Breath Activated (umeclidinium Pinnacle) Inhale 1 Puff by mouth in the morning. Mucinex DM 30-600 MG Oral Tablet Extended Release 12 Hour TAKE ONE TABLET BY MOUTH TWICE A DAY NEEDED 60 Tablet 5 Acetaminophen 325 MG Oral Tablet (Tylenol) TAKE TWO TABLETS BY MOUTH EVERY 6 HOURS 100 Tablet 5 Docusate Sodium 100 MG Oral Capsule (Colace) TAKE TWO CAPSULES BY MOUTH TWICE A DAY 360 Capsule 5 Albuterol Sulfate HFA 108 (90 Base) MCG/ACT Inhalation Aerosol Solution INHALE ONE PUFF BY MOUTH FOUR TIMES A DAY NEEDED 6.7 g 5 Breo Ellipta 100-25 MCG/ACT Inhalation Aerosol Powder Breath Activated INHALE ONE PUFF BY MOUTH EVERY DAY 180 Each 5 Apixaban 5 MG Oral Tablet (Eliquis) TAKE ONE TABLET BY MOUTH TWICE A DAY 180 Tablet 5 Calcitriol 0.25 MCG Oral Capsule (Rocaltrol) TAKE ONE CAPSULE BY MOUTH EVERY DAY 90 Capsule 5 Atorvastatin Calcium 10 MG Oral Tablet (Lipitor) TAKE ONE TABLET BY MOUTH EVERY DAY 90 Tablet 5 Spironolactone 100 MG Oral Tablet (Aldactone) TAKE ONE TABLET BY MOUTH EVERY DAY 90 Tablet 5 metFORMIN HCl ER 500 MG Oral Tablet Extended Release 24 Hour (Glucophage XR) TAKE ONE TABLET BY MOUTH EVERY DAY 90 Tablet 5 Amitriptyline HCl 50 MG Oral Tablet (Elavil) TAKE ONE TABLET BY MOUTH AT BEDTIME 90 Tablet 5 Metoprolol Tartrate 100 MG Oral Tablet (Lopressor) TAKE ONE TABLET BY MOUTH TWICE A DAY 180 Tablet 5 Venlafaxine HCl ER 150 MG Oral Capsule Extended Release 24 Hour (Effexor XR) TAKE ONE CAPSULE BY MOUTH EVERY DAY 90 Capsule 5 Furosemide 40 MG Oral Tablet (Lasix) Take 1 Tablet by mouth in the morning. Wednesday/Wednesday and Wednesday only. No current facility-administered medications for this visit. Review of patient's allergies indicates: Allergen Reactions Alendronate Fosamax, severe cramping and diarrhea Clinoril [Sulindac] Propulsid [Cisapride] Pyridium [Phenazopyridine Hcl] Relaform Sulfa Antibiotics Valium Patient Active Problem List Diagnosis Code Osteoporosis M81.0 Esophageal reflux K21.9 Myalgia and myositis [id number] Idiopathic scoliosis M41.20 Anxiety state F41.1 Menopause Z78.0 ADVANCE DIRECTIVE INFORMATION HTN, goal below 140/90 I10 Obesity, Class II, BMI 35-39.9, isolated (see actual BMI) E66.9 Kidney disease, chronic, stage III (GFR 30-59 ml/min) ([facility]) N18.30 ACEI/ARB contraindicated [id number] Heart failure, diastolic, with acute decompensation ([facility]) I50.33 Heart failure, diastolic, due to HTN ([facility]) I11.0, I50.30 Anemia D64.9 Backache M54.9 History of tobacco use Z87.891 Hypopotassemia E87.6 Type 2 diabetes mellitus with hemoglobin A1c goal of less than 7.0% ([facility]) E11.9 Dyslipidemia, goal LDL below 100 E78.5 Type 2 diabetes mellitus with diabetic chronic kidney disease ([facility]) E11.22 Secondary hyperparathyroidism of renal origin ([facility]) N25.81 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 ([facility]) I13.0, I50.32, N18.30 COPD exacerbation ([facility]) J44.1 Longstanding persistent atrial fibrillation ([facility]) I48.11 COPD, severity to be determined ([facility]) J44.9 Other specified peripheral vascular diseases ([facility]) I73.89 Type 2 diabetes mellitus with hemoglobin A1c goal of less than 8.0% ([facility]) E11.9 Past Medical History: Diagnosis Date DM type 2 causing CKD stage 3 ([facility]) Heart failure, diastolic, due to HTN ([facility]) HTN, goal below 130/80 Renal artery stenosis ([facility]) Past Surgical History: Procedure Laterality Date ATTACH BLADDER/URETHRA, SIMPLE IR STENT PLACEMENT, INITIAL ARTERY Left 12/03/2016 NON LOWER EXTREMITY OR CAROTID STENT REVASCULARIZATION WITH RADIOLOGIC SUPERVISION AND INTERPRETATION performed by Omer Kidd MD at OR [facility] REMOVAL OF OVARY/OVIDUCT(S) Ovary/Tube(S) Removal TOTAL HYSTERECTOMY fibroids and DUB Family History Problem Relation Age of Onset Stroke Mother Cancer Father prost Cancer Sister breast Social History Socioeconomic History Marital status: Spouse name: Not on file Number of children: Not on file Years of education: Not on file Highest education level: Not on file Occupational History Not on file Tobacco Use Smoking status: Every Day Current packs/day: 0.50 Types: Cigarettes Smokeless tobacco: Never Tobacco comments: 06/23/2023 6 cigarettes per day, declined phamplet Substance and Sexual Activity Alcohol use: No Drug use: No Sexual activity: Yes Partners: Male control/protection: Surgical Other Topics Concern Not on file Social History Narrative Not on file Social Determinants of Health Financial Resource Strain: Not on file Food Insecurity: Not on file Transportation Needs: Not on file Physical Activity: Not on file Stress: Not on file Social Connections: Not on file Intimate Partner Violence: Not on file Housing Stability: Not on file REVIEW OF SYSTEMS: Constitutional: Denies fever, Denies shaking chills. Eyes: Denies amaurosis fugax. Cardiovascular: denies chest pains, H/O CHF. Respiratory: denies shortness of breath, reports chronic TRINIDAD. Gastrointestinal: denies melena, denies bright red blood per rectum. Genitourinary: denies hematuria. Musculoskeletal: reports arthritis. H/O Fibromyalgia. Skin: denies rash, denies ulcers. Neurological: denies TIA, denies CVA, denies amaurosis fugax, reports neuropathy. Endocrine: reports DM, reports hyperlipidemia. Hematologic: denies blood clotting problems, reports anemia. GENERAL MULTI-SYSTEM PHYSICAL EXAM: VITAL SIGNS: BP 118/72 (BP Site: Left Arm, BP Position: Sitting, BP Cuff Size: Regular) | Pulse 82 | Temp 36.6 C (97.8 F) (Tympanic) | Ht 1.6 m (5' 3") | Wt 85 kg (187 lb 8 oz) | BMI 33.21 kg/m | BSA 1.94 m GENERAL MULTI-SYSTEM PHYSICAL EXAM: GENERAL: Normal grooming habits, no acute distress and appears stated age. RESPIRATORY: respiratory effort normal and breath sounds normal. CARDIOVASCULAR: RRR, no murmur, no BLE edema GASTROINTESTINAL: no tenderness, obese and abdominal aorta not palpable. SKIN: no ulcers PSYCHIATRIC: orientation to time, place and person normal EYES: conjunctivae normal, eye lids normal, NEUROLOGIC: Motor function intact. Somewhat impaired sensation to feet CREATININE (MG/DL) Date Value 04/26/1996 0.8 Creatinine (mg/dL) Date Value 09/08/2022 1.1 (H) 11/15/2017 1.1 (H) Estimated Glomerular Filtration Rate (mL/min) Date Value 09/08/2022 48 (L) 04/27/2013 39.8 (L) EGFR-OUTSIDE LAB (ML/MIN) Date Value 01/01/2015 43.3 Hemoglobin A1C (%) Date Value 09/08/2022 7.3 (H) 10/17/2014 5.8 HEMOGLOBIN, [id number] LAB (%) Date Value 01/01/2015 6.0 (A) The above clinical lab tests were reviewed by me on 06/23/23 PULSE SCALE: Carotid Right:----Bruit: No Left:----Bruit: No Radial Right: 3 Left: 3 Dorsalis Pedis Right: 2 Left: 2 Posterior Tibial Right: 0 Left: 0 PULSE SCALE: 4=Aneurysmal; 3=Normal; 2=Diminished; 1=Barely Palpable; 0=Absent DIAGNOSTIC STUDIES: 06/23/23 Renal Duplex: LRA 37/57/62/91, LRI 0.81, L kidney length 11.9 cm The above diagnostic images were directly visualized and independently interpreted by me on 06/23/23with results as above 01/28/21: Renal duplex: right atrophic, Left renal 103/173/97 RI 86, Length 11.3 cm 09/06/19: Renal artery duplex: RRA 78/76/103 RI 81, Length 11.8 cm. 03/17/18: Renal Artery Duplex: LRA main 255 - branches: #1 - 92, 57, #2 - 112, 58, LRI 0.87, L-kid 11.4 cm 01/04/17 Renal Duplex: LIMITED IMAGING. LRA distal 110, LRI 0.75, L-kid 11 cm. 09/14/2016 Renal Duplex ([facility]) Aorta 122, LRA Narendra 187/94/115, L RI .71. 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 CKD IIIa, GFRs in 40s HTN-controlled PAD without ulcerations, rest pain. In a wheelchair today, does not walk very much Afib- on Eliquis CHF. Dyslipidemia. Tobacco Dependency, quit 2010. DM. Anemia. Fibromaylgia. Peripheral neuropathy. PLAN: The patient was counseled regarding the pathophysiology and natural history of renal vascular disease, as well as the interventional and noninterventional therapeutic options. BP well controlled, on 2 anti-HTN med Continue ASA 81 mg for platelet inhibition Continue Lipitor 10 mg for dyslipidemia/hyperlipidemia/pleiotropic benefits On Eliquis for A fib Pt would like to continue to follow with us RTC in 2 years at [facility] with a renal duplex (lmtd) completed prior to appointment The patient was seen and examined with Dorian Dunne MD. Arsalan Padgett PA-C documented in this encounter Nursing Notes * Edita Hamilton PHARM Tech - 06/23/2023 10:47 AM EDT Patient was instructed to not get up on the exam table/exam chair until directed and assisted by their provider; patient is to remain seated in the chair/ wheelchair/ exam table/ exam chair for fall prevention and safety reasons. Patient is aware to have assistance to step down off exam table/exam chair with personnel. Patient voiced full comprehension of instructions. Patients daughter stated no change to medications. ASHLY Wynn documented in this encounter Plan of Treatment Scheduled Orders Name Type Priority Associated Diagnoses Orde r Schedule VASC RENAL VASCULAR SCAN-LMTD Medical Imaging Routine Renal artery stenosis (HCC) Ordered: 06/23/2023 Health Maintenance Due Date Last Done Comments Alpha-1 Antitrypsin 1953 Zoster Vaccines (1 of 2) 1986 Albumin/Creatinine Ratio 06/15/2015 015, 10/07/2012, 06/20/2010, Additional history exists Diabetic Foot Exam 06/28/2015 06/27/2014, 0 09/07/2013, 04/12/2012, Additional history exists DXA Scan 07/20/2015 07/19/2013, 09/2009, 11/21/2002 Depression Screening 10/26/2015 10/25/2014 *COPD SEVERITY VERIFIED BY PFT 07/08/2022 COVID-19 Vaccine ( season) 2022 HbA1c 03/10/2023 09/08/2022, 12/05, 10/17/2014, Additional history exists DISCUSS TOBACCO CESSATION (REFER TO SMARTSET #7264) 06/25/2023 06/24/2022 Diabetic Eye Exam 07/28/2023 07/27/2022, , 01/13/2022, Additional history exists DTaP,Tdap,and Td Vaccines (2 - Td or Tdap) 08/26/2023 08/25/2013, 07/13/2008 O2 ASSESSMENT COMPLETED IN PAST YEAR FOR COPD 04/12/2024 04/12/2023 VITAMIN D LEVEL ONCE IN A LIFETIME-USE SMARTSET# [id number] Completed 07/20/2013, 06/11/2009 Pneumococcal Vaccine: 65+ Years Completed 01/31/2016, 05/25/2013, 05/18/2010 Influenza Vaccine (FLU shot) Completed 09/2022, 01/12/2019, 02/16/2018, Additional history exists GARDASIL-HPV IMMUNIZATION SERIES Aged Out No longer eligible based on patient's age to complete this topic Hepatitis B Aged Out No longer eligi ble based on patient's age to complete this topic MENINGOCOCCAL (MENACTRA/MENVEO) Aged Out No longer eligible based on patient's age to complete this topic documented as of this encounter Medical Devices Implanted Type Area Airline Customer Service Agent Device Identifier Shelf Expiration Date Model / Serial / Lot Stent Graft [id number] - [id number] - [id number] Implanted:Qty: 1 on 12/03/2016 by Omer Kidd MD at OR [facility] Left: Renal Artery [employer] 08/18/2019 [id number] / [id number] / Stent Graft [id number] - [id number] - [id number] Implanted:Qty: 1 on 12/03/2016 by Omer Kidd MD at OR [facility] Left: Renal Artery [employer] 12/05/2018 [id number] / [id number] / Stent Graft [id number] - [id number] - [id number] Implanted:Qty: 1 on 12/03/2016 by Omer Kidd MD at OR [facility] Left: Renal Artery [employer] 08/18/2019 [id number] / [id number] / documented as of this encounter Visit Diagnoses Diagnosis Renal artery stenosis (HCC)- Primary Atherosclerosis of renal artery documented in this encounter Advance Directives Latest Code Status on File Code Status Date Activated Date Inactivated Comments Full Code 12/03/2016 1:06 PM 12/04/2016 10:28 PM This order reflects the patients wishes and were consensually agreed upon. Code Status History Code Status Date Activated Date Inactivated Comments Full Code 06/20/2010 10:41 PM 06/26/2010 6:49 PM This order reflects the patients wishes and were consensually agreed upon. Care Teams Enamel Shader Relationship Specialty Start Date End Date Arsalan Pisano DO [address] [place] [address] PCP - General Internal Medicine 06/24/22 documented as of this encounter
[2023-06-29] MEDS: FLUTICASONE/VILANTEROL 100/25MCG 14 PUFFS/INHALER INH SCH (09:02)
[2023-06-29] MEDS: FUROSEMIDE 40 MG/4 ML VIAL IV SCH (09:02)
[2023-06-29] MEDS: VENLAFAXINE HCL XR 150 MG CAPXR PO SCH (09:02)
[2023-06-29] MEDS: UMECLIDINIUM BROMIDE 62.5MCG/BLISTER 7 PUFFS/INHALER INH SCH (09:02)
[2023-06-29] MEDS: POTASSIUM CHLORIDE CRTAB 20 MEQ TABCR PO SCH (09:02)
[2023-06-29] MEDS: ATORVASTATIN 10 MG TAB PO SCH (09:03)
[2023-06-29] MEDS: METOPROLOL TARTRATE 100 MG TAB PO SCH (09:03)
[2023-06-29] MEDS: DOCUSATE SODIUM 100 MG CAP PO SCH (09:03)
[2023-06-29] MEDS: SPIRONOLACTONE 25 MG TAB PO SCH (09:03)
--- NOTE | 2023-06-29 10:44 | XCELERA ---
[id number] [id number]
--- NOTE | 2023-06-29 12:14 | Cardiology Consultation ---
Date of Consultation June 29, 2023 Assessment & Plan (1) Acute hypoxemic respiratory failure: -multifactorial with components of pulmonary edema and COPD exacerbation. -agree with intravenous Lasix b.i.d.. -would treat her for a COPD exacerbation (exam suggests significant bronchospasm). (2) Atrial fibrillation with RVR: -ventricular response now adequately controlled. -continue metoprolol tartrate and Eliquis. (3) Diastolic CHF: -as above. History of Present Illness Attending Physician: Kati Chaudhry MD History of Present Illness Mrs. Alvarez is an 87-year-old female admitted yesterday with acute respiratory failure, confusion, and atrial fibrillation with a rapid ventricular response. She does have a history of chronic diastolic CHF, and therefore, this consultation was ordered. Of note, patient typically follows with Dr. Russell in the outpatient setting. History is obtained from the medical record as the patient is still somewhat confused. In short, she had increasing respiratory congestion over the last week. She did demonstrate some confusion which typically occurs when she has a urinary tract infection. She was brought to emergency room for evaluation. On arrival here, her saturations were in the 80s. She was given intravenous metoprolol, Solu-Medrol, furosemide, and ertapenem. She also carries a history of permanent atrial fibrillation treated with rate control and long-term anticoagulation. She did wear a long-term event monitor back in January which noted atrial fibrillation throughout with a heart rate varying from 50 up to 153 beats per minute. Average was 85 beats per minute. There were no significant pauses bradycardias. Currently, patient is resting comfortably in bed without complaints. Past medical and surgical history 1. Hypercholesterolemia 2. Hypertension 3. Severe LVH 4. Chronic diastolic CHF 5. Permanent atrial fibrillation 6. COPD 7. Diabetes mellitus 8. Chronic renal failure 9. Renal artery stenosis 10. Renal artery stent-November 2016 11. RONNELL/BSO Social history Resident at the [facility] Smokes 5 cigarettes daily No alcohol Family history Noncontributory Review of systems A 10 point review of systems was undertaken and negative except that described above. Allergies Allergy/AdvReac Type Severity Reaction Status Date / Time SOLANGE Inhibitors Allergy Unknown ON [facility] Verified 06/28/23 20:17 MED LIST alendronate sodium Allergy Unknown ON [facility] Verified 06/28/23 20:17 MED LIST ARB-Angiotensin Receptor Allergy Unknown Unknown Verified 06/28/23 20:17 Antagonist cisapride Allergy Unknown UNKNOWN Verified 06/28/23 20:17 diazepam Allergy Unknown ON [facility] Verified 06/28/23 20:17 MED LIST nabumetone Allergy Unknown ON [facility] Verified 06/28/23 20:17 MED LIST NSAIDS (Non-Steroidal Allergy Unknown ON [facility] Verified 06/28/23 20:17 Anti-Inflamma MED LIST phenazopyridine Allergy Unknown ON [facility] Verified 06/28/23 20:17 MED LIST Sulfa (Sulfonamide Allergy Unknown ON [facility] Verified 06/28/23 20:17 Antibiotics) MED LIST sulindac Allergy Unknown ON [facility] Verified 06/28/23 20:17 MED LIST duloxetine AdvReac Severe Diarrhea Verified 06/28/23 20:17 Home Medications Medication Instructions Recorded Confirmed Type docusate sodium 100 mg capsule 200 mg PO BIDM 12/24/19 06/28/23 History (Stool Softener) acetaminophen 325 mg tablet 650 mg PO Q6H PRN PAIN/FEVER 01/07/22 06/28/23 History (Tylenol) atorvastatin 10 mg tablet (Lipitor) 10 mg PO QAM #90 tabs 03/25/22 06/28/23 Rx umeclidinium 62.5 mcg/actuation 1 inh inhalation QAM #30 ea 04/21/22 06/28/23 Rx blister powder for inhalation (Incruse Ellipta) amitriptyline 50 mg tablet 50 mg PO HS #90 tabs 04/30/22 06/28/23 Rx albuterol sulfate 90 mcg/actuation 1 inh inhalation QID PRN shortness 05/04/22 06/28/23 Rx aerosol inhaler of breath or wheezing 90 days #20.1 grams calcitriol 0.25 mcg capsule 0.25 mcg PO QAM #90 caps 05/27/22 06/28/23 Rx fluticasone furoate 100 1 ea inhalation QAM 08/03/22 06/28/23 History mcg-vilanterol 25 mcg/dose inhalation powder (Breo Ellipta) metformin 500 mg tablet,extended 500 mg PO QAM 08/03/22 06/28/23 History release 24 hr venlafaxine 150 mg 150 mg PO QAM #90 caps 05/05/23 03/25/24 Rx capsule,extended release 24 hr furosemide 40 mg tablet (Lasix) 40 mg PO [id number] 10/12/22 06/28/23 History spironolactone 50 mg tablet 50 mg PO DAILY #90 tabs 10/12/22 06/28/23 Rx dextromethorphan-guaifenesin 30 1 tab PO Q12H PRN Congestion 12/18/22 06/28/23 History mg-600 mg tablet extended [id number] hr (Mucinex DM) apixaban 5 mg tablet (Eliquis) 5 mg PO BIDM 06/28/23 06/28/23 History metoprolol tartrate 100 mg tablet 100 mg PO BIDM 06/28/23 06/28/23 History Patient History Medical History (Updated 06/29/23 @ 12:31 by Ti Daugherty MD) Diastolic CHF S/P transesophageal echocardiogram ([facility]) [facility] resident [facility] RESIDENT Venous stasis dermatitis of both lower extremities Asymptomatic bacteriuria Atrial flutter Stress incontinence Non-functioning kidney Renal artery stenosis Dizziness Rapid atrial fibrillation Peripheral neuropathy Hyperlipidemia Hypertension Stage 3 chronic kidney disease Depression Type 2 diabetes mellitus Fibromyalgia Surgical History History of stent insertion of renal artery (~12/03/16) Family History Father Prostate cancer Sister Breast cancer Brother Lung cancer Sister Lung cancer Denies family history of Ovarian cancer Myocardial infarction Colorectal cancer Social History Smoking Status: Former smoker Tobacco Type: Cigarettes Age Started Using Tobacco: 21; packs per day: 0.25; Cigarettes Per Day: 5; Second Hand Exposure: No; Do You Dip or Chew Tobacco: No; Hx Alcohol Use: No Hx Substance Use: No Preferred Language: German Communication Ability: Effective Visual Impairment: Limited Hearing Ability: Hard of Hearing Field Examiner Required: No Beliefs That Will Affect Care: None marital status: / Current Living Situation: Personal Care Facility Current Living Situation Comment: [facility] current occupational status: retired current occupation: retired from career working on her farm Other Information That Helps Us Care for You: No Feels Safe at Home: Yes Safety Concerns: Feels Safe At This Time Childhood Exposure to Second-Hand Smoke: Yes Diet: regular Dental Care, Regularly: No Physical Activity Frequency: Does not Exercise Seatbelt Use: always Sunscreen Use: No Assistive Devices: Glasses and Walker Physical Exam Physical Exam: In general is well-developed well-nourished female no acute distress. HEENT exam is negative. Neck is supple with full carotid upstrokes. There are no carotid bruits. Jugular is pressure is flat at 90. Cardiovascular exam reveals an irregular irregular rhythm with distant heart sounds. No obvious murmur. No S3. Lungs note diffuse inspiratory and expiratory wheezes. No rales. Abdomen is soft without bruits. Extremities reveal intact radial artery pulses bilaterally. There is no peripheral edema. Results & Data Vital Signs (Past 12 Hours) Vital Signs Temp Pulse Pulse Resp BP BP Pulse Ox 06/29/23 11:20 36.5 C 78 19 148/79 H 96 06/29/23 10:54 06/29/23 10:23 94 H 06/29/23 08:30 36.3 C L 100 H 19 191/85 H 98 06/29/23 04:00 35 C L 75 20 178/84 H 94 06/29/23 01:55 06/29/23 01:34 36.4 C L 98 H 18 119/71 96 06/29/23 01:26 36.4 C L 98 H 18 119/71 96 06/29/23 01:26 06/29/23 01:12 92 H 06/29/23 00:30 82 19 150/93 H 92 Pulse Ox O2 Del Method O2 Del Method O2 Flow Rate 06/29/23 11:20 Room Air 06/29/23 10:54 Nasal Cannula 2 06/29/23 10:23 06/29/23 08:30 Nasal Cannula 2 06/29/23 04:00 Nasal Cannula 2 06/29/23 01:55 Nasal Cannula 2 06/29/23 01:34 Room Air 06/29/23 01:26 Room Air 06/29/23 01:26 96 Room Air 06/29/23 01:12 06/29/23 00:30 PG Care Time/CCT Total # of Minutes Spent Total Time Spent with Patient: Total time spent is greater than 50% in coordination of care (as documented) at patient's floor/unit and/or counseling patient: Coding Level of Care Code 80534 INT INP/OBS CARE 3/75MIN Diagnoses Acute hypoxemic respiratory failure J96.01 Atrial fibrillation with RVR I48.91 Diastolic CHF I50.30
--- NOTE | 2023-06-29 12:53 | Hospitalist Progress Note ---
Date of Service June 29, 2023 Assessment & Plan (1) Acute hypoxemic respiratory failure: Plan: Pt is an 87yoF with PMhx significant for chronic diastolic heart failure (EF 55 to 60%, TTE 2021), mild MR, A-fib/atrial flutter on Eliquis, hypertension, hyperlipidemia, PVD status post surgery, COPD, DM 2 on oral medications, recurrent UTIs (history of ESBL), fibromyalgia, mood disorder, past tobacco abuse presenting with SOB. Acute hypoxic respiratory Failure Decompensated heart Failure Secondary to decompensated heart failure history of diastolic dysfunction possibly from rapid A-fib/flutter Supplemental O2 Diuretic Rx Strict I/Os, daily weights, CHF education Update TTE, Cardiology consult Re: CHF, pt follows with [facility] Continue to monitor UTI Ua suggestive of infection, Urine Cx pending Blood Cx x2 pending Continue ertapenem, follow cx Acute Metabolic and Toxic Encephalopathy secondary to illness Hold neuropsychotropic medications until patient mentation back to baseline Delirium precautions. Frequent reorientation, avoid sedating medications as able Continue rx for uti above A-fib/atrial flutter continue home metoprolol with Eliquis Hypertension uncontrolled initially secondary to complicated UTI, no sepsis for now Currently wnl Continue home meds hyperlipidemia on statin Rx COPD not in acute exacerbation patient denies cough symptoms however very wheezy on exam Scheduled duonebd DM 2 on oral medications, reasonable control as of recent hemoglobin A1c of 7.1 last year mood disorder at baseline Diet: HH/DMII DVT prophylaxis. Eliquis DNR as per patient's prior wishes as per daughter/POA, Ms. Mariana Gomez. (2) Diastolic CHF: (3) Acute UTI: (4) Chronic atrial flutter: Admission and Anticipated Discharge Date Admission Date: June 28, 2023 Subjective Pt was seen in the AM. Hard of hearing, slightly confused. Denies acute concerns Review of Systems Review of Systems: All systems reviewed & are unremarkable except as noted in Subjective Physical Exam Physical Exam: General: Alert, oriented. No acute distress Skin: No noted rashes or bruises Psych: Appropriate mood and affect Neuro: No gross deficits HEENT: NC/AT Chest: Nontender to palpation. CV: RRR, Normal s1, s2. No murmurs appreciated Resp: Breath sounds with wheezing bilaterally, no increased effort of breathing. Abdomen: Soft, nontender, nondistended. Extremities: No edema in lower extremities bilaterally. Results & Data Results & Data Vital Signs (Past 12 Hours) Vital Signs Temp Pulse Pulse Resp BP Pulse Ox Pulse Ox 06/29/23 11:20 36.5 C 78 19 148/79 H 96 06/29/23 10:54 06/29/23 10:23 94 H 06/29/23 08:30 36.3 C L 100 H 19 191/85 H 98 06/29/23 04:00 35 C L 75 20 178/84 H 94 06/29/23 01:55 06/29/23 01:34 36.4 C L 98 H 18 119/71 96 06/29/23 01:26 36.4 C L 98 H 18 119/71 96 06/29/23 01:26 96 06/29/23 01:12 92 H O2 Del Method O2 Del Method O2 Flow Rate 06/29/23 11:20 Room Air 06/29/23 10:54 Nasal Cannula 2 06/29/23 10:23 06/29/23 08:30 Nasal Cannula 2 06/29/23 04:00 Nasal Cannula 2 06/29/23 01:55 Nasal Cannula 2 06/29/23 01:34 Room Air 06/29/23 01:26 Room Air 06/29/23 01:26 Room Air 06/29/23 01:12
--- NOTE | 2023-06-29 12:59 | Electrocardiogram Report ---
Test Reason : Blood Pressure : / mmHG Vent. Rate : 128 BPM Atrial Rate : 128 BPM P-R Int : 158 ms QRS Dur : 084 ms QT Int : 320 ms P-R-T Axes : 000 -41 218 degrees QTc Int : 467 ms Poor data quality, interpretation may be adversely affected Atrial fibrillation with rapid ventricular response Left axis deviation Moderate voltage criteria for LVH, may be normal variant ( R in aVL ) Marked ST abnormality, possible inferolateral subendocardial injury Abnormal ECG When compared with ECG of 20-DEC-2022 06:05, ST now depressed in Inferior leads T wave inversion more evident in Inferior leads Confirmed by Ti Daugherty ([id number]) on 06/29/2023 12:58:59 PM Referred By: REFERRED SELF Confirmed By:iT Daugherty
[2023-06-29] MEDS: ALBUT/IPRATROP 3MG/0.5MG NEB 3 ML VIAL NEB STA (13:29)
[2023-06-29] MEDS: ALBUT/IPRATROP 3MG/0.5MG NEB 3 ML VIAL NEB SCH (13:30)
[2023-06-29] MEDS: ERTAPENEM SODIUM 1,000 MG in SYRINGE 0 ML IV SCH (21:37)
[2023-06-30 04:36] LABS: Hematocrit (blood only) 42.3 % (37.0-47.0); Mean Corpuscular Hemoglobin 30.9 pg (25.0-34.0); Mean Corpuscular Hgb Conc 33.1 g/dL (32.0-36.0); Mean Corpuscular Volume 93.4 fL (80.0-100.0); Mean Platelet Volume 9.6 fL (9.4-12.4); Platelet Count 222 K/uL (130-400); RDW Coefficient of Variation 14.4 % (11.5-14.5); RDW Standard Deviation 49.7 fL (36.4-46.3); Red Blood Count 4.53 M/uL (4.20-5.40); White Blood Count 10.51 K/ul (4.8-10.8)
[2023-06-30 04:53] LABS: BUN Creatinine Ratio 23.8 (10-20); Calcium 9.2 mg/dl (8.6-10.3); Creatinine Clr Calc Pharmacy 34.4 ml/min; Est GFR (African American) 46.5 ml/min; Est GFR (Non-African American) 40.1 ml/min; Magnesium 1.9 mg/dl (1.7-2.4); Phosphorus 3.4 mg/dl (2.5-4.9); Potassium 4.2 mmol/L (3.5-5.1)
[2023-06-30] MEDS: FUROSEMIDE 40 MG/4 ML VIAL IV SCH (08:52)
--- NOTE | 2023-06-30 09:51 | Hospitalist Progress Note ---
Date of Service June 30, 2023 Assessment & Plan (1) Acute hypoxemic respiratory failure: Plan: Pt is an 87yoF with PMhx significant for chronic diastolic heart failure (EF 55 to 60%, TTE 2021), mild MR, A-fib/atrial flutter on Eliquis, hypertension, hyperlipidemia, PVD status post surgery, COPD, DM 2 on oral medications, recurrent UTIs (history of ESBL), fibromyalgia, mood disorder, past tobacco abuse presenting with SOB. Acute hypoxic respiratory Failure Decompensated heart Failure Secondary to decompensated heart failure history of diastolic dysfunction possibly from rapid A-fib/flutter Supplemental O2 Diuretic Rx Strict I/Os, daily weights, CHF education Updated TTE - LV systolic function is normal. No regional wall motion abnormalities noted. There is severe concentric LVH. EF 60 to 65%. There is mild mitral regurg. Compared with study in January 2022, no significant change. Cardiology consulted Re: CHF, pt follows with [facility] Continue IV lasix for now Closely monitor I/os, hemodynamic status Currently on RA, but w/ wheezing CXR repeated - and personally reviewed - pulm. vasc. congestion improved add guaifenesin, IS, flutter valve UTI Urine Cx posit. for ESBL E.coli Blood Cx x2 pending Continue Ertapenem Acute Metabolic and Toxic Encephalopathy secondary to illness Hold neuropsychotropic medications until patient mentation back to baseline Delirium precautions. Frequent reorientation, avoid sedating medications as able Continue rx for uti above A-fib/atrial flutter continue home metoprolol with Eliquis Hypertension uncontrolled initially secondary to complicated UTI no sepsis for now Currently wnl Continue home meds hyperlipidemia on statin Rx COPD not in acute exacerbation patient denies cough symptoms however + wheezes on exam Scheduled duoneb DM 2 on oral medications, reasonable control as of recent hemoglobin A1c of 7.1 last year mood disorder at baseline Diet: HH/DMII DVT prophylaxis. Eliquis DNR as per patient's prior wishes as per daughter/POA, Ms. Mariana Gomez. (2) Diastolic CHF: (3) Acute UTI: (4) Chronic atrial flutter: Admission and Anticipated Discharge Date Admission Date: June 28, 2023 Subjective Pt seen in follow up of shortness of breath, chf, UTI (ESBL E. coli) Seen by cardiology Sitting up in bed in NAD, but says she does not feel well. says breathing is better than yesterday. Denies any chest pain No fever, chills, abd. pain, n/v Hard of hearing, gets slightly confused per RN. Review of Systems Review of Systems: All systems reviewed & are unremarkable except as noted in Subjective Physical Exam Physical Exam: GENERAL: obese elderly F in NAD HEENT: NC/AT , EOMI NECK : Supple, no tenderness CHEST : Decreased breath sounds, + scattered expiratory wheezes HEART : Irregular, no obvious murmurs ABDOMEN: Some distention, nontender, soft EXTREMITIES : Minimal LE swelling, no LE tenderness, moves extremities NEUROLOGIC : awake, alert, speech fluent, no facial asymmetry, moves extremities SKIN: warm, dry Results & Data Results & Data Vital Signs (Past 12 Hours) Vital Signs Temp Pulse Pulse Resp BP Pulse Ox O2 Del Method 06/30/23 09:00 Nasal Cannula 06/30/23 07:59 36.6 C 94 H 19 152/88 H 96 Nasal Cannula 06/30/23 07:24 73 14 98 Nasal Cannula 06/30/23 07:20 86 06/30/23 03:18 36.7 C 100 H 18 140/85 97 Nasal Cannula 06/30/23 00:00 37.0 C 95 H 18 143/74 H 96 Nasal Cannula 06/29/23 22:36 68 18 97 Nasal Cannula 06/29/23 22:00 92 H O2 Flow Rate 06/30/23 09:00 06/30/23 07:59 2 06/30/23 07:24 2 06/30/23 07:20 06/30/23 03:18 2.0 06/30/23 00:00 2 06/29/23 22:36 3 06/29/23 22:00 Laboratory Results 06/30/23 06/30/23 06/29/23 Range/Units 07:59 03:47 20:26 WBC 10.51 (4.8-10.8) K/ul RBC 4.53 (4.20-5.40) M/uL Hgb 14.0 (12.0-16.0) g/dl Hct 42.3 (37.0-47.0) % MCV 93.4 (80.0-100.0) fL MCH 30.9 (25.0-34.0) pg MCHC 33.1 (32.0-36.0) g/dL RDW Std Deviation 49.7 H (36.4-46.3) fL RDW Coeff of Carmenza 14.4 (11.5-14.5) % Plt Count 222 (130-400) K/uL MPV 9.6 (9.4-12.4) fL Sodium 137 (136-145) mmol/L Potassium 4.2 (3.5-5.1) mmol/L Chloride 103 (98-107) mmol/L Carbon Dioxide 24 (21-32) mmol/L Anion Gap 10 (3-11) BUN 29 H (6-23) mg/dl Creatinine 1.22 H (0.6-1.2) mg/dl Est Cr Clr Drug Dosing 34.4 ml/min Est GFR ( Amer) 46.5 ml/min Est GFR (Non-Af Amer) 40.1 ml/min BUN/Creatinine Ratio 23.8 H (10-20) Glucose 117 H (70-99(Fasting)) mg/dl POC Glucose 102 H 153 H (70-99) mg/dl Calcium 9.2 (8.6-10.3) mg/dl Phosphorus 3.4 (2.5-4.9) mg/dl Magnesium 1.9 (1.7-2.4) mg/dl 06/29/23 06/29/23 Range/Units 16:50 12:03 WBC (4.8-10.8) K/ul RBC (4.20-5.40) M/uL Hgb (12.0-16.0) g/dl Hct (37.0-47.0) % MCV (80.0-100.0) fL MCH (25.0-34.0) pg MCHC (32.0-36.0) g/dL RDW Std Deviation (36.4-46.3) fL RDW Coeff of Carmenza (11.5-14.5) % Plt Count (130-400) K/uL MPV (9.4-12.4) fL Sodium (136-145) mmol/L Potassium (3.5-5.1) mmol/L Chloride (98-107) mmol/L Carbon Dioxide (21-32) mmol/L Anion Gap (3-11) BUN (6-23) mg/dl Creatinine (0.6-1.2) mg/dl Est Cr Clr Drug Dosing ml/min Est GFR ( Amer) ml/min Est GFR (Non-Af Amer) ml/min BUN/Creatinine Ratio (10-20) Glucose (70-99(Fasting)) mg/dl POC Glucose 107 H 135 H (70-99) mg/dl Calcium (8.6-10.3) mg/dl Phosphorus (2.5-4.9) mg/dl Magnesium (1.7-2.4) mg/dl Medications Administered Current Inpatient Medications Acetaminophen (Acetaminophen 325 Mg Tab) 650 mg PO QID PRN PRN Reason: pain/fever Stop: 07/29/23 01:25 Albuterol (Albut/Ipratrop 3mg/0.5mg Neb 3 Ml Vial) 3 ml NEB Q4R [facility]AG[facility]; Protocol Stop: 07/29/23 14:59 Last Admin: 06/30/23 07:23 Dose: 3 ml Apixaban (Apixaban 5 Mg Tablet) 5 mg PO BIDM [facility] Stop: 07/29/23 01:25 Last Admin: 06/30/23 08:51 Dose: 5 mg Atorvastatin Calcium (Atorvastatin 10 Mg Tab) 10 mg PO QAM [facility] Stop: 07/29/23 08:59 Last Admin: 06/30/23 08:51 Dose: 10 mg Dextrose (Dextrose 50% 50 Ml Syringe) 25 - 50 ml IV UD PRN; Protocol PRN Reason: Hypoglycemia Protocol Stop: 07/29/23 01:25 Docusate Sodium (Docusate Sodium 100 Mg Cap) 200 mg PO BIDM [facility] Stop: 07/29/23 07:59 Last Admin: 06/30/23 08:50 Dose: 200 mg Fluticasone/Vilanterol (Fluticasone/Vilanterol 100/25mcg 14 Puffs/Inhaler) 1 puffs INH QAM [facility] Stop: 07/29/23 08:59 Last Admin: 06/30/23 08:52 Dose: 1 puffs Furosemide (Furosemide 40 Mg/4 Ml Vial) 40 mg IV BID17 [facility] Stop: 07/30/23 08:59 Last Admin: 06/30/23 08:52 Dose: 40 mg Glucagon (Glucagon For Inj 1 Mg Vial) 1 mg SQ UD PRN; Protocol PRN Reason: Hypoglycemia Protocol Stop: 07/29/23 01:25 Glucose (Glucose 10 Tab/Tube) 4 - 8 tab PO UD PRN; Protocol PRN Reason: Hypoglycemia Treatment Stop: 07/29/23 01:25 Glucose (Glucose 40% Gel 15 Gm Tube) 15 - 30 gm PO UD PRN; Protocol PRN Reason: Hypoglycemia Protocol Stop: 07/29/23 01:25 Ertapenem 1,000 mg/ Syringe 10 mls @ 2 mls/min IV Q24H [facility] Stop: 07/09/23 20:59 Last Admin: 06/29/23 21:37 Dose: 2 mls/min Promethazine HCl 6.25 mg/ (Sodium Chloride) 50.25 mls @ 201 mls/hr IV Q6H PRN PRN Reason: Nausea And Vomiting Stop: 07/29/23 01:25 Insulin Aspart (Insulin Aspart Per Unit Charge) 0 units SC ACHS [facility] Stop: 07/29/23 01:25 Last Admin: 06/30/23 08:54 Dose: Not Given Insulin Glargine (Lantus Per Unit Charge) 5 units SQ HS [facility] Stop: 07/29/23 01:25 Last Admin: 06/29/23 21:33 Dose: 5 units Metoprolol Tartrate (Metoprolol Tartrate 100 Mg Tab) 100 mg PO BIDM [facility] Stop: 07/29/23 07:59 Last Admin: 06/30/23 08:50 Dose: 100 mg Miscellaneous (Carbohydrates For Hypoglycemia ) 15 - 30 gm PO UD PRN PRN Reason: Hypoglycemia Protocol Stop: 07/29/23 01:25 Nitroglycerin (Nitroglycerin Sl 0.4 Mg/Tab Tab) 0.4 mg SL Q5M PRN PRN Reason: Chest Pain Stop: 07/29/23 01:25 Potassium Chloride (Potassium Chloride Crtab 20 Meq Tabcr) 20 meq PO BID [facility] Stop: 07/29/23 08:59 Last Admin: 06/30/23 08:50 Dose: 20 meq Spironolactone (Spironolactone 25 Mg Tab) 50 mg PO DAILY [facility] Stop: 07/29/23 08:59 Last Admin: 06/30/23 08:50 Dose: 50 mg Umeclidinium Malakoff (Umeclidinium [place]off 62.5mcg/Blister 7 Puffs/Inhaler) 1 puffs INH QAM [facility] Stop: 07/29/23 08:59 Last Admin: 03/27/24 08:51 Dose: 1 puffs Venlafaxine HCl (Venlafaxine Hcl Xr 150 Mg Capxr) [facility] Stop: 07/29/23 08:59 Last Admin: 06/30/23 08:51 Dose: 150 mg
--- NOTE | 2023-06-30 11:56 | XRay Report ---
SINGLE VIEW CHEST CLINICAL HISTORY: Follow-up of pulmonary vascular congestion. FINDINGS: An AP, portable, upright chest radiograph is compared to study dated 06/28/2023. The examina tion is degraded by portable technique and patient rotation. The heart is enlarged measuring atheros clerotic calcification of the thoracic aorta. Mild pulmonary vascular congestion has improved from ye sterday. Chronic interstitial thickening is similar to previous. Scarring/atelectasis is noted at the lung bases. No airspace consolidation or large pleural effusion is identified. No pneumothorax is se en. The skeletal structures are osteopenic. The bony thorax is grossly intact. IMPRESSION: Cardiomegaly. Pulmonary vascular congestion is improved from yesterday. ACT 112: Negative or not required by law. Electronically signed by: Wai Villanueva M.D. 06/30/2023 11:55 AM
[2023-06-30] MEDS: guaiFENesin 600 MG TABCR PO SCH (17:03)
[2023-06-30] MEDS: BUDESONIDE 0.5 MG/2 ML VIAL (PULMICORT) NEB SCH (19:38)
[2023-07-01 06:30] LABS: BUN Creatinine Ratio 28.3 (10-20); Calcium 9.4 mg/dl (8.6-10.3); Creatinine Clr Calc Pharmacy 34.6 ml/min; Est GFR (African American) 47.4 ml/min; Est GFR (Non-African American) 40.9 ml/min; Phosphorus 3.9 mg/dl (2.5-4.9); Potassium 4.6 mmol/L (3.5-5.1)
[2023-07-01 06:34] LABS: Hematocrit (blood only) 43.8 % (37.0-47.0); Hemoglobin 14.5 g/dl (12.0-16.0); Mean Corpuscular Hgb Conc 33.1 g/dL (32.0-36.0); Mean Corpuscular Volume 93.8 fL (80.0-100.0); Mean Platelet Volume 9.6 fL (9.4-12.4); Platelet Count 233 K/uL (130-400); RDW Coefficient of Variation 14.6 % (11.5-14.5); RDW Standard Deviation 50.5 fL (36.4-46.3); Red Blood Count 4.67 M/uL (4.20-5.40); White Blood Count 7.94 K/ul (4.8-10.8)
--- NOTE | 2023-07-01 07:31 | Hospitalist Progress Note ---
Date of Service July 01, 2023 Assessment & Plan (1) Acute hypoxemic respiratory failure: Plan: Pt is an 87yoF with PMhx significant for chronic diastolic heart failure (EF 55 to 60%, TTE 2021), mild MR, A-fib/atrial flutter on Eliquis, hypertension, hyperlipidemia, PVD status post surgery, COPD, DM 2 on oral medications, recurrent UTIs (history of ESBL), fibromyalgia, mood disorder, past tobacco abuse presenting with SOB. Acute hypoxic respiratory Failure Decompensated heart Failure Secondary to decompensated heart failure history of diastolic dysfunction possibly from rapid A-fib/flutter Supplemental O2 Diuretic Rx Strict I/Os, daily weights, CHF education Updated TTE - LV systolic function is normal. No regional wall motion abnormalities noted. There is severe concentric LVH. EF 60 to 65%. There is mild mitral regurg. Compared with study in January 2022, no significant change. Cardiology consulted Re: CHF, pt follows with [facility] Continue IV lasix for now Closely monitor I/os, hemodynamic status Currently on RA, but w/ wheezing CXR repeated - and personally reviewed - pulm. vasc. congestion improved will obtain follow up CXR to re-assess cont. guaifenesin, IS, flutter valve UTI Urine Cx posit. for ESBL E.coli Blood Cx x2 negat. for 48 hrs Continue Ertapenem Acute Metabolic and Toxic Encephalopathy secondary to illness Hold neuropsychotropic medications until patient mentation back to baseline Delirium precautions. Frequent reorientation, avoid sedating medications as able Continue rx for uti above A-fib/atrial flutter continue home metoprolol with Eliquis Hypertension uncontrolled initially secondary to complicated UTI no sepsis for now Currently wnl Continue home meds hyperlipidemia on statin Rx COPD + wheezes on exam - cont. home inhalers Scheduled duoneb, add budesonide DM 2 on oral medications, reasonable control as of recent hemoglobin A1c of 7.1 last year mood disorder at baseline Diet: HH/DMII DVT prophylaxis. Eliquis DNR as per patient's prior wishes as per daughter/POA, Ms. Mariana Gomez. (2) Diastolic CHF: (3) Acute UTI: (4) Chronic atrial flutter: Admission and Anticipated Discharge Date Admission Date: June 28, 2023 Subjective Pt seen in follow up of shortness of breath, CHF, UTI (ESBL E. coli) Seen by cardiology Laying in bed in NAD, looks more tired today, however says she is feeling better. She is now getting a breathing treatment. Denies any chest pain No fever, chills, abd. pain, n/v Hard of hearing, gets slightly confused per RN. Repeat CXR Review of Systems Review of Systems: All systems reviewed & are unremarkable except as noted in Subjective Physical Exam Physical Exam: GENERAL: obese elderly F in NAD HEENT: NC/AT , EOMI NECK : Supple, no tenderness CHEST : Decreased breath sounds, + scattered expiratory wheezes (improved) HEART : Irregular, no obvious murmurs ABDOMEN: Some distention, nontender, soft EXTREMITIES : Minimal LE swelling, no LE tenderness, moves extremities NEUROLOGIC : drowsy but awakens easily and answers simple questions appropriately, speech fluent, no facial asymmetry, moves extremities SKIN: warm, dry Results & Data Results & Data Vital Signs (Past 12 Hours) Vital Signs Temp Pulse Resp BP Pulse Ox O2 Del Method O2 Del Method 07/01/23 07:11 82 18 90 Room Air 07/01/23 04:26 95 H 18 96 Room Air 07/01/23 03:52 36.4 C L 91 H 18 137/73 96 Room Air 06/30/23 23:58 86 18 91 Room Air 06/30/23 23:20 36.3 C L 101 H 18 134/84 93 Room Air 06/30/23 21:00 Room Air 06/30/23 20:40 Room Air 06/30/23 19:40 71 19 90 Room Air Laboratory Results 07/01/23 06/30/23 06/30/23 Range/Units 05:43 20:12 16:29 WBC 7.94 (4.8-10.8) K/ul RBC 4.67 (4.20-5.40) M/uL Hgb 14.5 (12.0-16.0) g/dl Hct 43.8 (37.0-47.0) % MCV 93.8 (80.0-100.0) fL MCH 31.0 (25.0-34.0) pg MCHC 33.1 (32.0-36.0) g/dL RDW Std Deviation 50.5 H (36.4-46.3) fL RDW Coeff of Carmenza 14.6 H (11.5-14.5) % Plt Count 233 (130-400) K/uL MPV 9.6 (9.4-12.4) fL Sodium 139 (136-145) mmol/L Potassium 4.6 (3.5-5.1) mmol/L Chloride 105 (98-107) mmol/L Carbon Dioxide 27 (21-32) mmol/L Anion Gap 7 (3-11) BUN 34 H (6-23) mg/dl Creatinine 1.20 (0.6-1.2) mg/dl Est Cr Clr Drug Dosing 34.6 ml/min Est GFR ( Amer) 47.4 ml/min Est GFR (Non-Af Amer) 40.9 ml/min BUN/Creatinine Ratio 28.3 H (10-20) Glucose 113 H (70-99(Fasting)) mg/dl POC Glucose 128 H 95 (70-99) mg/dl Calcium 9.4 (8.6-10.3) mg/dl Phosphorus 3.9 (2.5-4.9) mg/dl Magnesium 2.0 (1.7-2.4) mg/dl 06/30/23 06/30/23 Range/Units 11:34 07:59 WBC (4.8-10.8) K/ul RBC (4.20-5.40) M/uL Hgb (12.0-16.0) g/dl Hct (37.0-47.0) % MCV (80.0-100.0) fL MCH (25.0-34.0) pg MCHC (32.0-36.0) g/dL RDW Std Deviation (36.4-46.3) fL RDW Coeff of Carmenza (11.5-14.5) % Plt Count (130-400) K/uL MPV (9.4-12.4) fL Sodium (136-145) mmol/L Potassium (3.5-5.1) mmol/L Chloride (98-107) mmol/L Carbon Dioxide (21-32) mmol/L Anion Gap (3-11) BUN (6-23) mg/dl Creatinine (0.6-1.2) mg/dl Est Cr Clr Drug Dosing ml/min Est GFR ( Amer) ml/min Est GFR (Non-Af Amer) ml/min BUN/Creatinine Ratio (10-20) Glucose (70-99(Fasting)) mg/dl POC Glucose 141 H 102 H (70-99) mg/dl Calcium (8.6-10.3) mg/dl Phosphorus (2.5-4.9) mg/dl Magnesium (1.7-2.4) mg/dl Medications Administered Current Inpatient Medications Acetaminophen (Acetaminophen 325 Mg Tab) 650 mg PO QID PRN PRN Reason: pain/fever Stop: 07/29/23 01:25 Albuterol (Albut/Ipratrop 3mg/0.5mg Neb 3 Ml Vial) 3 ml NEB Q4R [facility]; Protocol Stop: 07/29/23 14:59 Last Admin: 07/01/23 07:11 Dose: 3 ml Apixaban (Apixaban 5 Mg Tablet) 5 mg PO BIDM [facility] Stop: 07/29/23 01:25 Last Admin: 06/30/23 17:03 Dose: 5 mg Atorvastatin Calcium (Atorvastatin 10 Mg Tab) 10 mg PO QAM [facility] Stop: 07/29/23 08:59 Last Admin: 06/30/23 08:51 Dose: 10 mg Budesonide (Budesonide 0.5 Mg/2 Ml Vial (Pulmicort)) 0.5 mg NEB BIDR [facility] Stop: 07/30/23 18:59 Last Admin: 07/01/23 07:11 Dose: 0.5 mg Dextrose (Dextrose 50% 50 Ml Syringe) 25 - 50 ml IV UD PRN; Protocol PRN Reason: Hypoglycemia Protocol Stop: 07/29/23 01:25 Docusate Sodium (Docusate Sodium 100 Mg Cap) 200 mg PO BIDM [facility] Stop: 07/29/23 07:59 Last Admin: 06/30/23 17:03 Dose: 200 mg Fluticasone/Vilanterol (Fluticasone/Vilanterol 100/25mcg 14 Puffs/Inhaler) [facility] puffs [facility] [place]: 07/29/23 08:59 Last Admin: 06/30/23 08:52 Dose: 1 puffs Furosemide (Furosemide 40 Mg/4 Ml Vial) 40 mg IV BID17 [facility] Stop: 07/30/23 08:59 Last Admin: 06/30/23 17:08 Dose: Not Given Furosemide (Furosemide 40 Mg Tab) 40 mg PO QAM [facility] Stop: 07/31/23 08:59 Glucagon (Glucagon For Inj 1 Mg Vial) 1 mg SQ UD PRN; Protocol PRN Reason: Hypoglycemia Protocol Stop: 07/29/23 01:25 Glucose (Glucose 10 Tab/Tube) 4 - 8 tab PO UD PRN; Protocol PRN Reason: Hypoglycemia Treatment Stop: 07/29/23 01:25 Glucose (Glucose 40% Gel 15 Gm Tube) 15 - 30 gm PO UD PRN; Protocol PRN Reason: Hypoglycemia Protocol Stop: 07/29/23 01:25 Guaifenesin (Guaifenesin 600 Mg Tabcr) 600 mg PO Q12 [facility] Stop: 07/30/23 15:54 Last Admin: 06/30/23 20:27 Dose: 600 mg Ertapenem 1,000 mg/ Syringe 10 mls @ 2 mls/min IV Q24H [facility] Stop: 07/04/23 21:04 Last Admin: 06/30/23 20:29 Dose: 2 mls/min Promethazine HCl 6.25 mg/ (Sodium Chloride) 50.25 mls @ 201 mls/hr IV Q6H PRN PRN Reason: Nausea And Vomiting Stop: 07/29/23 01:25 Insulin Aspart (Insulin Aspart Per Unit Charge) 0 units SC ACHS [facility] Stop: 07/29/23 01:25 Last Admin: 06/30/23 20:23 Dose: Not Given Insulin Glargine (Lantus Per Unit Charge) 5 units SQ HS [facility] Stop: 07/29/23 01:25 Last Admin: 06/30/23 20:26 Dose: 5 units Metoprolol Tartrate (Metoprolol Tartrate 100 Mg Tab) 100 mg PO BIDM [facility] Stop: 07/29/23 07:59 Last Admin: 06/30/23 17:03 Dose: 100 mg Miscellaneous (Carbohydrates For Hypoglycemia ) 15 - 30 gm PO UD PRN PRN Reason: Hypoglycemia Protocol Stop: 07/29/23 01:25 Nitroglycerin (Nitroglycerin Sl 0.4 Mg/Tab Tab) 0.4 mg SL Q5M PRN PRN Reason: Chest Pain Stop: 07/29/23 01:25 Potassium Chloride (Potassium Chloride Crtab 20 Meq Tabcr) 20 meq PO BID [facility] Stop: 07/29/23 08:59 Last Admin: 06/30/23 20:27 Dose: 20 meq Spironolactone (Spironolactone 25 Mg Tab) 50 mg PO DAILY [facility] Stop: 07/29/23 08:59 Last Admin: 06/30/23 08:50 Dose: 50 mg Umeclidinium [place] (Umeclidinium [place] 62.5mcg/Blister 7 Puffs/Inhaler) 1 puffs [facility] Stop: 07/29/23 08:59 Last Admin: 06/30/23 08:51 Dose: 1 puffs Venlafaxine HCl (Venlafaxine Hcl Xr 150 Mg Capxr) 150 mg PO QAM [facility] Stop: 07/29/23 08:59 Last Admin: 06/30/23 08:51 Dose: 150 mg
[2023-07-01] MEDS: FUROSEMIDE 40 MG TAB PO SCH (08:14)
--- NOTE | 2023-07-01 14:17 | XRay Report ---
XR chest 1V portable HISTORY: Pulmonary vascular congestion. Shortness of breath. follow up COMPARISON: Chest 06/30/2023. FINDINGS: Slightly rotated study. No pneumothorax. No pleural effusions. The heart remains enlarged. No new focal lung consolidations to suggest a pneumonia. No acute fractures. Diffuse interstitial thi ckening persists. This may represent chronic change or mild pulmonary vascular congestion. No evidenc e for pulmonary edema. IMPRESSION: No change in the cardiomegaly and diffuse interstitial thickening. This could be chronic or represent mild congestive change. ACT 112: Negative or not required by law. Electronically signed by: Steven Cuba M.D. 07/01/2023 2:16 PM
[2023-07-02 06:56] LABS: Hematocrit (blood only) 47.9 % (37.0-47.0); Hemoglobin 15.9 g/dl (12.0-16.0); Mean Corpuscular Hemoglobin 30.9 pg (25.0-34.0); Mean Corpuscular Hgb Conc 33.2 g/dL (32.0-36.0); Mean Platelet Volume 9.5 fL (9.4-12.4); Platelet Count 255 K/uL (130-400); RDW Coefficient of Variation 14.2 % (11.5-14.5); RDW Standard Deviation 48.4 fL (36.4-46.3); Red Blood Count 5.15 M/uL (4.20-5.40); White Blood Count 8.26 K/ul (4.8-10.8)
[2023-07-02 07:14] LABS: BUN Creatinine Ratio 28.8 (10-20); Calcium 9.8 mg/dl (8.6-10.3); Creatinine Clr Calc Pharmacy 33.5 ml/min; Est GFR (African American) 45.1 ml/min; Est GFR (Non-African American) 38.9 ml/min; Magnesium 2.1 mg/dl (1.7-2.4); Phosphorus 3.2 mg/dl (2.5-4.9); Potassium 4.8 mmol/L (3.5-5.1)
--- NOTE | 2023-07-02 07:47 | Hospitalist Progress Note ---
Date of Service July 02, 2023 Assessment & Plan (1) Acute hypoxemic respiratory failure: Plan: Pt is an 87yoF with PMhx significant for chronic diastolic heart failure (EF 55 to 60%, TTE 2021), mild MR, A-fib/atrial flutter on Eliquis, hypertension, hyperlipidemia, PVD status post surgery, COPD, DM 2 on oral medications, recurrent UTIs (history of ESBL), fibromyalgia, mood disorder, past tobacco abuse presenting with SOB. Acute hypoxic respiratory Failure Decompensated heart Failure Secondary to decompensated heart failure history of diastolic dysfunction possibly from rapid A-fib/flutter Supplemental O2 Diuretic Rx Strict I/Os, daily weights, CHF education Updated TTE - LV systolic function is normal. No regional wall motion abnormalities noted. There is severe concentric LVH. EF 60 to 65%. There is mild mitral regurg. Compared with study in January 2022, no significant change. Cardiology consulted Re: CHF, pt [facility] Continued IV lasix for now -> switch to PO lasix now Closely monitor I/os, hemodynamic status Currently on RA, but w/ wheezing CXR repeated - and personally reviewed - pulm. vasc. congestion improved cont. guaifenesin, IS, flutter valve Cont. to has wheezes and dyspnea w/ minimal exertion, even though improved - will further discuss w/ pulm. med. UTI Urine Cx posit. for ESBL E.coli Blood Cx x2 negat. for 48 hrs Continue Ertapenem Acute Metabolic and Toxic Encephalopathy secondary to illness Hold neuropsychotropic medications until patient mentation back to baseline Delirium precautions. Frequent reorientation, avoid sedating medications as able Continue rx for uti above A-fib/atrial flutter continue home metoprolol with Eliquis Hypertension uncontrolled initially secondary to complicated UTI no sepsis for now Currently wnl Continue home meds hyperlipidemia on statin Rx COPD + wheezes on exam - cont. home inhalers duoneb- however need close monitoring as pt easily tachycardic, added budesonide DM 2 on oral medications, reasonable control as of recent hemoglobin A1c of 7.1 last year mood disorder at baseline Diet: HH/DMII DVT prophylaxis. Eliquis DNR as per patient's prior wishes as per daughter/POA, Ms. Mariana Gomez. (2) Diastolic CHF: (3) Acute UTI: (4) Chronic atrial flutter: Admission and Anticipated Discharge Date Admission Date: June 28, 2023 Subjective Pt seen in follow up of shortness of breath, CHF, UTI (ESBL E. coli) Seen by cardiology Sitting up in chair in NAD, Denies any chest pain. Still feels short of breath with any minimal exertion. No fever, chills, abd. pain, n/v Tachycardic this AM - per RN -- did not get scheduled metoprolol on time from pharmacy. stat IV metoprolol given Hard of hearing, gets slightly confused per RN. Repeated CXR yesterday - w/ improved pulm. michael. Cont. w/ wheezes and dyspnea- will discuss w/ pulm. Review of Systems Review of Systems: All systems reviewed & are unremarkable except as noted in Subjective Physical Exam Physical Exam: GENERAL: obese elderly F in NAD HEENT: NC/AT , EOMI NECK : Supple, no tenderness CHEST : Decreased breath sounds, + scattered expiratory wheezes (improved) HEART : Irregular, no obvious murmurs ABDOMEN: Some distention, nontender, soft EXTREMITIES : Minimal LE swelling, no LE tenderness, moves extremities NEUROLOGIC : awake, alert, answers simple questions appropriately, speech fluent, no facial asymmetry, moves extremities SKIN: warm, dry Results & Data Results & Data Vital Signs (Past 12 Hours) Vital Signs Temp Pulse Resp BP Pulse Ox O2 Del Method 07/02/23 07:27 89 16 93 Room Air 07/02/23 04:39 36.6 C 104 H 18 107/65 91 Room Air 07/02/23 03:38 71 18 92 Room Air 07/01/23 23:43 86 20 91 Room Air 07/01/23 23:01 36.3 C L 89 22 122/77 91 Room Air 07/01/23 20:35 Room Air 07/01/23 20:09 92 H 20 93 Room Air Laboratory Results 07/02/23 07/01/23 07/01/23 Range/Units 06:02 20:24 16:42 WBC 8.26 (4.8-10.8) K/ul RBC 5.15 (4.20-5.40) M/uL Hgb 15.9 (12.0-16.0) g/dl Hct 47.9 H (37.0-47.0) % MCV 93.0 (80.0-100.0) fL MCH 30.9 (25.0-34.0) pg MCHC 33.2 (32.0-36.0) g/dL RDW Std Deviation 48.4 H (36.4-46.3) fL RDW Coeff of Carmenza 14.2 (11.5-14.5) % Plt Count 255 (130-400) K/uL MPV 9.5 (9.4-12.4) fL Sodium 140 (136-145) mmol/L Potassium 4.8 (3.5-5.1) mmol/L Chloride 103 (98-107) mmol/L Carbon Dioxide 29 (21-32) mmol/L Anion Gap 8 (3-11) BUN 36 H (6-23) mg/dl Creatinine 1.25 H (0.6-1.2) mg/dl Est Cr Clr Drug Dosing 33.5 ml/min Est GFR ( Amer) 45.1 ml/min Est GFR (Non-Af Amer) 38.9 ml/min BUN/Creatinine Ratio 28.8 H (10-20) Glucose 117 H (70-99(Fasting)) mg/dl POC Glucose 118 H 81 (70-99) mg/dl Calcium 9.8 (8.6-10.3) mg/dl Phosphorus 3.2 (2.5-4.9) mg/dl Magnesium 2.1 (1.7-2.4) mg/dl 07/01/23 07/01/23 Range/Units 11:46 07:50 WBC (4.8-10.8) K/ul RBC (4.20-5.40) M/uL Hgb (12.0-16.0) g/dl Hct (37.0-47.0) % MCV (80.0-100.0) fL MCH (25.0-34.0) pg MCHC (32.0-36.0) g/dL RDW Std Deviation (36.4-46.3) fL RDW Coeff of [place]enza (11.5-14.5) % Plt Count (130-400) K/uL MPV (9.4-12.4) fL Sodium (136-145) mmol/L Potassium (3.5-5.1) mmol/L Chloride (98-107) mmol/L Carbon Dioxide (21-32) mmol/L Anion Gap (3-11) BUN (6-23) mg/dl Creatinine (0.6-1.2) mg/dl Est Cr Clr Drug Dosing ml/min Est GFR ( Amer) ml/min Est GFR (Non-Af Amer) ml/min BUN/Creatinine Ratio (10-20) Glucose (70-99(Fasting)) mg/dl POC Glucose 170 H 160 H (70-99) mg/dl Calcium (8.6-10.3) mg/dl Phosphorus (2.5-4.9) mg/dl Magnesium (1.7-2.4) mg/dl Medications Administered Current Inpatient Medications Acetaminophen (Acetaminophen 325 Mg Tab) 650 mg PO QID PRN PRN Reason: pain/fever Stop: 07/29/23 01:25 Albuterol (Albut/Ipratrop 3mg/0.5mg Neb 3 Ml Vial) 3 ml NEB Q4R [facility]; Protocol Stop: 07/29/23 14:59 Last Admin: 07/02/23 07:26 Dose: 3 ml Apixaban (Apixaban 5 Mg Tablet) 5 mg PO BIDM [facility] Stop: 07/29/23 01:25 Last Admin: 07/01/23 16:45 Dose: 5 mg Atorvastatin Calcium (Atorvastatin 10 Mg Tab) 10 mg PO QAM [facility] Stop: 07/29/23 08:59 Last Admin: 07/01/23 08:14 Dose: 10 mg Budesonide (Budesonide 0.5 Mg/2 Ml Vial (Pulmicort)) 0.5 mg NEB BIDR [facility] Stop: 07/30/23 18:59 Last Admin: 07/02/23 07:26 Dose: 0.5 mg Dextrose (Dextrose 50% 50 Ml Syringe) 25 - 50 ml IV UD PRN; Protocol PRN Reason: Hypoglycemia Protocol Stop: 07/29/23 01:25 Docusate Sodium (Docusate Sodium 100 Mg Cap) 200 mg PO BIDM [facility] Stop: 07/29/23 07:59 Last Admin: 07/01/23 16:46 Dose: 200 mg Fluticasone/Vilanterol (Fluticasone/Vilanterol 100/25mcg 14 Puffs/Inhaler) 1 puffs [facility] [place] Stop: 07/29/23 08:59 Last Admin: 07/01/23 08:13 Dose: 1 puffs Furosemide (Furosemide 40 Mg/4 Ml Vial) 40 mg IV BID17 [facility] Stop: 07/30/23 08:59 Last Admin: 07/01/23 08:14 Dose: 40 mg Furosemide (Furosemide 40 Mg Tab) 40 mg PO QAM [facility] Stop: 07/31/23 08:59 Last Admin: 07/01/23 08:14 Dose: Not Given Glucagon (Glucagon For Inj 1 Mg Vial) 1 mg SQ UD PRN; Protocol PRN Reason: Hypoglycemia Protocol Stop: 07/29/23 01:25 Glucose (Glucose 10 Tab/Tube) 4 - 8 tab PO UD PRN; Protocol PRN Reason: Hypoglycemia Treatment Stop: 07/29/23 01:25 Glucose (Glucose 40% Gel 15 Gm Tube) 15 - 30 gm PO UD PRN; Protocol PRN Reason: Hypoglycemia Protocol Stop: 07/29/23 01:25 Guaifenesin (Guaifenesin 600 Mg Tabcr) 600 mg PO Q12 [facility] Stop: 07/30/23 15:54 Last Admin: 07/01/23 20:34 Dose: 600 mg Ertapenem 1,000 mg/ Syringe 10 mls @ 2 mls/min IV Q24H [facility] Stop: 07/04/23 21:04 Last Admin: 07/01/23 20:38 Dose: 2 mls/min Promethazine HCl 6.25 mg/ (Sodium Chloride) 50.25 mls @ 201 mls/hr IV Q6H PRN PRN Reason: Nausea And Vomiting Stop: 07/29/23 01:25 Insulin Aspart (Insulin Aspart Per Unit Charge) 0 units SC ACHS [facility] Stop: 07/29/23 01:25 Last Admin: 07/01/23 20:30 Dose: Not Given Insulin Glargine (Lantus Per Unit Charge) 5 units SQ HS [facility] Stop: 07/29/23 01:25 Last Admin: 07/01/23 20:33 Dose: 5 units Metoprolol Tartrate (Metoprolol Tartrate 100 Mg Tab) 100 mg PO BIDM [facility] Stop: 07/29/23 07:59 Last Admin: 07/01/23 16:46 Dose: 100 mg Miscellaneous (Carbohydrates For Hypoglycemia ) 15 - 30 gm PO UD PRN PRN Reason: Hypoglycemia Protocol Stop: 07/29/23 01:25 Nitroglycerin (Nitroglycerin Sl 0.4 Mg/Tab Tab) 0.4 mg SL Q5M PRN PRN Reason: Chest Pain Stop: 07/29/23 01:25 Potassium Chloride (Potassium Chloride Crtab 20 Meq Tabcr) 20 meq PO BID [facility] Stop: 07/29/23 08:59 Last Admin: 07/01/23 20:34 Dose: 20 meq Spironolactone (Spironolactone 25 Mg Tab) 50 mg PO DAILY [facility] Stop: 07/29/23 08:59 Last Admin: 07/01/23 08:13 Dose: 50 mg Umeclidinium [place] (Umeclidinium [place] 62.5mcg/Blister 7 Puffs/Inhaler) 1 puffs INH QAM [facility] Stop: 07/29/23 08:59 Last Admin: 07/01/23 08:13 Dose: 1 puffs Venlafaxine HCl (Venlafaxine Hcl Xr 150 Mg Capxr) 150 mg PO QAM [facility] Stop: 07/29/23 08:59 Last Admin: 07/01/23 08:13 Dose: 150 mg
[2023-07-02] MEDS: METOPROLOL TARTRATE 1 MG/ML VIAL IV STA (09:25)
--- NOTE | 2023-07-02 13:39 | Pulmonary Consultation ---
Date of Consultation July 02, 2023 Assessment & Plan (1) Diastolic CHF: (2) COPD exacerbation: (3) Tobacco abuse: Plan Chest x-ray 07/01/2023 personally reviewed: Portable film, fair inspiratory effort, rotated to the right, mild blunting of bilateral costophrenic angle, increased cardiac silhouette, no clear pulmonary infiltrate 2D echo 06/29/2023: Severe concentric LVH, EF 60-65%, RV not well-visualized -- COPD exacerbation COVID-19, influenza A/B, RSV all negative on 06/28/2023 Procalcitonin negative, nasal MRSA negative BNP 588 On Breo 100 and Incruse at home along with albuterol --Current smoker Approximately 85-[id number] smoking history Currently smoking 6 cigarettes a day --A-fib On apixaban --Family history of lung cancer in brother and sister who are smokers Plan: In/out: -112 since coming to the hospital Patient is a longtime smoker, she is on beta-rommel. I will change patient's Breo to nebulized Brovana as well as budesonide, continue with Incruse inhaler. I will give 20 mg of Solu-Medrol IV Start the patient hypertonic saline nebulized and continue with flutter valve If the above measures does not help then consideration of changing beta-rommel to a calcium channel rommel should be thought of Case was discussed with Dr. Bobo Please note the above document was generated using voice recognition software. It may contain grammatical, syntax or spelling errors.Any formal questions or concerns about the content, text or information contained within the body of this dictation should be directly addressed to the provider for clarification. History of Present Illness Attending Physician: Norman Bobo MD History of Present Illness 87-year-old female present to the hospital for shortness of breath Past medical history: HFpEF, A-fib on Eliquis, hypertension, dyslipidemia, diabetes type 2, fibromyalgia Pulmonary consulted for persistent wheezing Patient's daughter was in the room at the time of examination At the time of examination patient says that she is feeling better than the time she came to the hospital Occasional still has some chest tightness. She does cough and bring up clear phlegm Denies any difficulty bringing up any phlegm right now. She has been compliant with her inhalers at home. Does complain of dizziness especially on walking. Fair appetite, no nausea vomiting No diarrhea Please make note patient is a poor historian. History was assisted by patient's daughter Social history: Approximately 50-[id number] smoking history, currently smoking 6 packs a day. Family history of lung cancer in brother and sister who are smokers Allergies Allergy/AdvReac Type Severity Reaction Status Date / Time SOLANGE Inhibitors Allergy Unknown [facility] Verified 06/28/23 20:17 MED LIST alendronate sodium Allergy Unknown ON [facility] Verified 06/28/23 20:17 MED LIST ARB-Angiotensin Receptor Allergy Unknown Unknown Verified 06/28/23 20:17 Antagonist cisapride Allergy Unknown UNKNOWN Verified 06/28/23 20:17 diazepam Allergy Unknown ON [facility] Verified 06/28/23 20:17 MED LIST nabumetone Allergy Unknown ON [facility] Verified 06/28/23 20:17 MED LIST NSAIDS (Non-Steroidal Allergy Unknown ON [facility] Verified 06/28/23 20:17 Anti-Inflamma MED LIST phenazopyridine Allergy Unknown ON [facility] Verified 06/28/23 20:17 MED LIST Sulfa (Sulfonamide Allergy Unknown ON [facility] Verified 06/28/23 20:17 Antibiotics) MED LIST sulindac Allergy Unknown ON [facility] Verified 06/28/23 20:17 MED LIST duloxetine AdvReac Severe Diarrhea Verified 06/28/23 20:17 Home Medications Medication Instructions Recorded Confirmed Type docusate sodium 100 mg capsule 200 mg PO BIDM 12/24/19 06/28/23 History (Stool Softener) acetaminophen 325 mg tablet 650 mg PO Q6H PRN PAIN/FEVER 01/07/22 06/28/23 History (Tylenol) atorvastatin 10 mg tablet (Lipitor) 10 mg PO QAM #90 tabs 03/25/22 06/28/23 Rx umeclidinium 62.5 mcg/actuation 1 inh inhalation QAM #30 ea 04/21/22 06/28/23 Rx blister powder for inhalation (Incruse Ellipta) amitriptyline 50 mg tablet 50 mg PO HS #90 tabs 04/30/22 06/28/23 Rx albuterol sulfate 90 mcg/actuation 1 inh inhalation QID PRN shortness 05/04/22 06/28/23 Rx aerosol inhaler of breath or wheezing 90 days #20.1 grams calcitriol 0.25 mcg capsule 0.25 mcg PO QAM #90 caps 05/27/22 06/28/23 Rx fluticasone furoate 100 1 ea inhalation QAM 08/03/22 06/28/23 History mcg-vilanterol 25 mcg/dose inhalation powder (Breo Ellipta) metformin 500 mg tablet,extended 500 mg PO QAM 08/03/22 06/28/23 History release 24 hr venlafaxine 150 mg 150 mg PO QAM #90 caps 08/07/22 06/28/23 Rx capsule,extended release 24 hr furosemide 40 mg tablet (Lasix) 40 mg PO [id number] 10/12/22 06/28/23 History spironolactone 50 mg tablet 50 mg PO DAILY #90 tabs 10/12/22 06/28/23 Rx dextromethorphan-guaifenesin 30 1 tab PO Q12H PRN Congestion 12/18/22 06/28/23 History mg-600 mg tablet extended lycclhx90 hr (Mucinex DM) apixaban 5 mg tablet (Eliquis) 5 mg PO BIDM 06/28/23 06/28/23 History metoprolol tartrate 100 mg tablet 100 mg PO BIDM 06/28/23 06/28/23 History Patient History Medical History (Updated 06/29/23 @ 12:31 by Ti Daugherty MD) Diastolic CHF S/P transesophageal echocardiogram ([facility]) shelter resident [facility] Venous stasis dermatitis of both lower extremities Asymptomatic bacteriuria Atrial flutter Stress incontinence Non-functioning kidney Renal artery stenosis Dizziness Rapid atrial fibrillation Peripheral neuropathy Hyperlipidemia Hypertension Stage 3 chronic kidney disease Depression Type 2 diabetes mellitus Fibromyalgia Surgical History History of stent insertion of renal artery (~12/03/16) Family History Father Prostate cancer Sister Breast cancer Brother Lung cancer Sister Lung cancer Denies family history of Ovarian cancer Myocardial infarction Colorectal cancer Social History Smoking Status: Former smoker Tobacco Type: Cigarettes Age Started Using Tobacco: 21; packs per day: 0.25; Cigarettes Per Day: 5; Second Hand Exposure: No; Do You Dip or Chew Tobacco: No; Hx Alcohol Use: No Hx Substance Use: No Preferred Language: Azeri Communication Ability: Impaired Visual Impairment: Limited Hearing Ability: Hard of Hearing [employer] Plans Staff Officer Required: No Beliefs That Will Affect Care: None marital status: / Current Living Situation: Personal Care Facility Current Living Situation Comment: [facility] current occupational status: retired current occupation: retired from career working on her farm Other Information That Helps Us Care for You: No Feels Safe at Home: Yes Safety Concerns: Feels Safe At This Time Childhood Exposure to Second-Hand Smoke: Yes Diet: regular Dental Care, Regularly: No Physical Activity Frequency: Does not Exercise Seatbelt Use: always Sunscreen Use: No Assistive Devices: Walker and Wheelchair Review of Systems 2 Review of Systems: All systems reviewed & are unremarkable except as noted in HPI & below Physical Exam 2 Physical Exam: Constitutional: No acute distress HEENT: EOMI, PERRLA, arcus analysis bilaterally Respiratory system: Decreased air entry bilaterally, mild rhonchi, positive expiratory wheeze bilateral, no crackles CVS: S1-S2 positive, no murmurs or gallops, irregular Abdomen: Soft, nontender, nondistended, positive bowel sounds x4 Extremities: +2 pulses bilaterally radialis/ dorsalis pedis, no cyanosis, no edema Neuro: Awake alert oriented to self and place Psych: Normal mood and affect G/U: No Traore Skin: no rashes, warm and dry Lymphatic: no cervical or axillary lymphadenopathy Results & Data Results & Data Vital Signs (Past 12 Hours) Vital Signs Temp Pulse Pulse Resp BP BP BP 07/02/23 11:29 82 18 07/02/23 11:19 36.4 C L 98 H 20 153/88 H 07/02/23 09:41 110 H 131/82 07/02/23 09:25 135 H 140/76 07/02/23 08:18 07/02/23 07:58 113 H 07/02/23 07:35 36.4 C L 89 19 140/85 07/02/23 07:27 89 16 07/02/23 04:39 36.6 C 104 H 18 107/65 07/02/23 03:38 71 18 Pulse Ox O2 Del Method 07/02/23 11:29 93 Room Air 07/02/23 11:19 93 Room Air 07/02/23 09:41 07/02/23 09:25 07/02/23 08:18 Room Air 07/02/23 07:58 07/02/23 07:35 93 Room Air 07/02/23 07:27 93 Room Air 07/02/23 04:39 91 Room Air 07/02/23 03:38 92 Room Air Laboratory Results 07/02/23 06:02 07/02/23 06:02 PG Care Time/CCT Total # of Minutes Spent Total Time Spent with Patient: Total time spent is greater than 50% in coordination of care (as documented) at patient's floor/unit and/or counseling patient: Coding Level of Care Code 74782 INT INP/OBS CARE 3/75MIN Diagnoses Diastolic CHF I50.30 COPD exacerbation J44.1 Tobacco abuse Z72.0
[2023-07-02] MEDS ORDERED: ALBUT/IPRATROP 3MG/0.5MG NEB 3 ML VIAL NEB PRN (13:58)
[2023-07-02] MEDS: methylPREDNISolone 20 MG in SYRINGE 0 ML IV ONE (14:41)
[2023-07-02] MEDS: methylPREDNISolone 1000 MG/16 ML IV STA (14:43)
[2023-07-02] MEDS ORDERED: ARFORMOTEROL TART 15MCG/2ML VIAL INH SCH (19:00)
[2023-07-02] MEDS: SODIUM CHLOR 7% 4 ML NEB NEB SCH (19:55)
[2023-07-02] MEDS: FORMOTEROL 20 MCG/2 ML VIAL INH SCH (19:55)
[2023-07-03 06:24] LABS: Hematocrit (blood only) 49.2 % (37.0-47.0); Hemoglobin 16.5 g/dl (12.0-16.0); Mean Corpuscular Hgb Conc 33.5 g/dL (32.0-36.0); Mean Corpuscular Volume 92.5 fL (80.0-100.0); Platelet Count 263 K/uL (130-400); RDW Standard Deviation 47.6 fL (36.4-46.3); Red Blood Count 5.32 M/uL (4.20-5.40)
[2023-07-03 07:03] LABS: Calcium 9.8 mg/dl (8.6-10.3); Est GFR (African American) 59.1 ml/min; Magnesium 2.2 mg/dl (1.7-2.4); Phosphorus 3.2 mg/dl (2.5-4.9); Potassium 5.2 mmol/L (3.5-5.1)
--- NOTE | 2023-07-03 07:20 | Pulmonology Progress Note ---
Date of Service July 03, 2023 Assessment & Plan (1) Diastolic CHF: (2) COPD exacerbation: (3) Tobacco abuse: Plan Chest x-ray 07/01/2023 personally reviewed: Portable film, fair inspiratory effort, rotated to the right, mild blunting of bilateral costophrenic angle, increased cardiac silhouette, no clear pulmonary infiltrate 2D echo 06/29/2023: Severe concentric LVH, EF 60-65%, RV not well-visualized -- COPD exacerbation COVID-19, influenza A/B, RSV all negative on 06/28/2023 Procalcitonin negative, nasal MRSA negative BNP 588 On Breo 100 and Incruse at home along with albuterol --Current smoker Approximately 05-[id number] smoking history Currently smoking 6 cigarettes a day --A-fib On apixaban --Family history of lung cancer in brother and sister who are smokers Plan: In/out: -112 since coming to the hospital Continue with Brovana as well as budesonide, continue with Incruse inhaler. Start patient on Solu-Medrol 40 mg on a daily basis Continue with hypertonic saline nebulized and flutter valve Patient is a longtime smoker, she is on beta-rommel. If the above measures does not help then consideration of changing beta-rommel to a calcium channel rommel should be thought of Case was discussed with Dr. Bobo and at bedside with RN Please note the above document was generated using voice recognition software. It may contain grammatical, syntax or spelling errors.Any formal questions or concerns about the content, text or information contained within the body of this dictation should be directly addressed to the provider for clarification. Admission and Anticipated Discharge Date Admission Date: June 28, 2023 Subjective Patient seen and examined at bedside. No acute distress, no adverse events overnight She was somnolent but easily arousable and answering all the questions appropriately She was oriented to self and place. Denied any chest pain, no shortness of breath Heart rate was better controlled today. Fair appetite, no nausea vomiting Patient's nurse was also in the room at the time of examination Review of Systems 2 Review of Systems: All systems reviewed & are unremarkable except as noted in Subjective Physical Exam 2 Physical Exam: Constitutional: No acute distress HEENT: EOMI, PERRLA, arcus analysis bilaterally Respiratory system: Decreased air entry bilaterally, mild rhonchi, positive expiratory wheeze bilateral, no crackles CVS: S1-S2 positive, no murmurs or gallops, irregular Abdomen: Soft, nontender, nondistended, positive bowel sounds x4 Extremities: +2 pulses bilaterally radialis/ dorsalis pedis, no cyanosis, no edema Neuro: Awake alert oriented to self and place Psych: Normal mood and affect G/U: No Traore Skin: no rashes, warm and dry Lymphatic: no cervical or axillary lymphadenopathy Results & Data Results & Data Vital Signs (Past 12 Hours) Vital Signs Temp Pulse Pulse Resp BP Pulse Ox Pulse Ox 07/03/23 04:07 87 18 173/92 H 92 07/03/23 00:00 94 H 07/02/23 23:49 36.4 C L 70 18 150/79 H 91 07/02/23 21:00 91 07/02/23 19:56 105 H 19 90 07/02/23 19:50 36.5 C 73 20 122/84 91 O2 Del Method O2 Del Method 07/03/23 04:07 Room Air 07/03/23 00:00 07/02/23 23:49 Room Air 07/02/23 21:00 Room Air 07/02/23 19:56 Room Air 07/02/23 19:50 Room Air Laboratory Results 07/03/23 06:10 07/03/23 06:10 PG Care Time/CCT Total # of Minutes Spent Total Time Spent with Patient: Total time spent is greater than 50% in coordination of care (as documented) at patient's floor/unit and/or counseling patient: Coding Level of Care Code 98683 SUB INP/OBS CARE 3/50MIN Diagnoses Diastolic CHF I50.30 COPD exacerbation J44.1 Tobacco abuse Z72.0
--- NOTE | 2023-07-03 09:15 | Hospitalist Progress Note ---
Date of Service July 03, 2023 Assessment & Plan (1) Acute hypoxemic respiratory failure: Plan: Pt is an 87yoF with PMhx significant for chronic diastolic heart failure (EF 55 to 60%, TTE 2021), mild MR, A-fib/atrial flutter on Eliquis, hypertension, hyperlipidemia, PVD status post surgery, COPD, DM 2 on oral medications, recurrent UTIs (history of ESBL), fibromyalgia, mood disorder, past tobacco abuse presenting with SOB. Acute hypoxic respiratory Failure Decompensated heart Failure and COPD exacerb Secondary to decompensated heart failure history of diastolic dysfunction possibly from rapid A-fib/flutter Supplemental O2 Diuretic Rx Strict I/Os, daily weights, CHF education Updated TTE - LV systolic function is normal. No regional wall motion abnormalities noted. There is severe concentric LVH. EF 60 to 65%. There is mild mitral regurg. Compared with study in January 2022, no significant change. Cardiology consulted Re: CHF, pt [facility] Card[facility] Continued IV lasix for now -> switch to PO lasix now Closely monitor I/os, hemodynamic status Currently on RA, but w/ wheezing CXR repeated - and personally reviewed - pulm. vasc. congestion improved cont. guaifenesin, IS, flutter valve Cont. to has wheezes and dyspnea w/ minimal exertion, even though improved - Pulm. med. consulted COPD exacerb Pt is still a current smoker + wheezes on exam - cont. home inhalers duoneb- however need close monitoring as pt easily tachycardic, added budesonide Pulmonary medicine consulted - cont. Brovana, Budesonide, Incruse. Give solum edrol, hypertonic saline neb. UTI Urine Cx posit. for ESBL E.coli Blood Cx x2 negat. for 48 hrs Continue Ertapenem Acute Metabolic and Toxic Encephalopathy secondary to illness Hold neuropsychotropic medications until patient mentation back to baseline Delirium precautions. Frequent reorientation, avoid sedating medications as able Continue rx for uti above A-fib/atrial flutter continue home metoprolol with Eliquis Hypertension uncontrolled initially secondary to complicated UTI Currently wnl Continue home meds hyperlipidemia on statin Rx DM 2 on oral medications, reasonable control as of recent hemoglobin A1c of 7.1 last year mood disorder at baseline Diet: HH/DMII DVT prophylaxis. Eliquis DNR as per patient's prior wishes as per daughter/POA, Ms. Mariana Gomez. (2) Diastolic CHF: (3) Acute UTI: (4) Chronic atrial flutter: Admission and Anticipated Discharge Date Admission Date: June 28, 2023 Subjective Pt seen in follow up of shortness of breath, CHF, UTI (ESBL E. coli) Seen by cardiology Sitting up in bed in NAD, Denies any chest pain. Still feels easily short of breath but improved. No fever, chills, abd. pain, n/v Cont. w/ wheezes and dyspnea- Pulm. medicine also consulted and following. Pt's daughter updated at the bedside. Review of Systems Review of Systems: All systems reviewed & are unremarkable except as noted in Subjective Physical Exam Physical Exam: GENERAL: obese elderly F in NAD HEENT: NC/AT , EOMI NECK : Supple, no tenderness CHEST : Decreased breath sounds, + scattered expiratory wheezes (improved) HEART : Irregular, no obvious murmurs ABDOMEN: Some distention, nontender, soft EXTREMITIES : Minimal LE swelling, no LE tenderness, moves extremities NEUROLOGIC : awake, alert, answers simple questions appropriately, speech fluent, no facial asymmetry, moves extremities SKIN: warm, dry Results & Data Results & Data Vital Signs (Past 12 Hours) Vital Signs Temp Pulse Pulse Pulse Resp BP BP 07/03/23 08:38 36.5 C 88 19 141/84 H 07/03/23 07:45 85 07/03/23 07:26 68 18 07/03/23 07:00 36.8 C 74 16 117/57 L 07/03/23 04:07 87 18 173/92 H 07/03/23 00:00 94 H 07/02/23 23:49 36.4 C L 70 18 150/79 H Pulse Ox O2 Del Method 07/03/23 08:38 98 Room Air 07/03/23 07:45 07/03/23 07:26 93 Room Air 07/03/23 07:00 98 Room Air 07/03/23 04:07 92 Room Air 07/03/23 00:00 07/02/23 23:49 91 Room Air Laboratory Results 07/03/23 07/03/23 07/02/23 Range/Units 08:05 06:10 20:47 WBC 9.10 (4.8-10.8) K/ul RBC 5.32 (4.20-5.40) M/uL Hgb 16.5 H (12.0-16.0) g/dl Hct 49.2 H (37.0-47.0) % MCV 92.5 (80.0-100.0) fL MCH 31.0 (25.0-34.0) pg MCHC 33.5 (32.0-36.0) g/dL RDW Std Deviation 47.6 H (36.4-46.3) fL RDW Coeff of Carmenza 14.0 (11.5-14.5) % Plt Count 263 (130-400) K/uL MPV 9.0 L (9.4-12.4) fL Sodium 138 (136-145) mmol/L Potassium 5.2 H (3.5-5.1) mmol/L Chloride 103 (98-107) mmol/L Carbon Dioxide 27 (21-32) mmol/L Anion Gap 8 (3-11) BUN 36 H (6-23) mg/dl Creatinine 1.00 (0.6-1.2) mg/dl Est Cr Clr Drug Dosing 41.0 ml/min Est GFR ( Amer) 59.1 ml/min Est GFR (Non-Af Amer) 51.0 ml/min BUN/Creatinine Ratio 36.0 H (10-20) Glucose 98 (70-99(Fasting)) mg/dl POC Glucose 91 261 H (70-99) mg/dl Calcium 9.8 (8.6-10.3) mg/dl Phosphorus 3.2 (2.5-4.9) mg/dl Magnesium 2.2 (1.7-2.4) mg/dl 07/02/23 07/02/23 07/02/23 Range/Units 20:22 16:51 12:00 WBC (4.8-10.8) K/ul RBC (4.20-5.40) M/uL Hgb (12.0-16.0) g/dl Hct (37.0-47.0) % MCV (80.0-100.0) fL MCH (25.0-34.0) pg MCHC (32.0-36.0) g/dL RDW Std Deviation (36.4-46.3) fL RDW Coeff of Carmenza (11.5-14.5) % Plt Count (130-400) K/uL MPV (9.4-12.4) fL Sodium (136-145) mmol/L Potassium (3.5-5.1) mmol/L Chloride (98-107) mmol/L Carbon Dioxide (21-32) mmol/L Anion Gap (3-11) BUN (6-23) mg/dl Creatinine (0.6-1.2) mg/dl Est Cr Clr Drug Dosing ml/min Est GFR ( Amer) ml/min Est GFR (Non-Af Amer) ml/min BUN/Creatinine Ratio (10-20) Glucose (70-99(Fasting)) mg/dl POC Glucose 179 H 177 H 148 H (70-99) mg/dl Calcium (8.6-10.3) mg/dl Phosphorus (2.5-4.9) mg/dl Magnesium (1.7-2.4) mg/dl Medications Administered Current Inpatient Medications Acetaminophen (Acetaminophen 325 Mg Tab) 650 mg PO QID PRN PRN Reason: pain/fever Stop: 07/29/23 01:25 Albuterol (Albut/Ipratrop 3mg/0.5mg Neb 3 Ml Vial) 3 ml NEB Q4R PRN; Protocol PRN Reason: SOB/Wheezing Stop: 07/29/23 14:59 Apixaban (Apixaban 5 Mg Tablet) 5 mg PO BIDM [facility] Stop: 07/29/23 01:25 Last Admin: 07/02/23 16:24 Dose: 5 mg Atorvastatin Calcium (Atorvastatin 10 Mg Tab) 10 mg PO QAM [facility] Stop: 07/29/23 08:59 Last Admin: 07/02/23 08:36 Dose: 10 mg Budesonide (Budesonide 0.5 Mg/2 Ml Vial (Pulmicort)) 0.5 mg NEB BIDR [facility] Stop: 07/30/23 18:59 Last Admin: 07/03/23 07:24 Dose: 0.5 mg Dextrose (Dextrose 50% 50 Ml Syringe) 25 - 50 ml IV UD PRN; Protocol PRN Reason: Hypoglycemia Protocol Stop: 07/29/23 01:25 Docusate Sodium (Docusate Sodium 100 Mg Cap) 200 mg PO BIDM [facility] Stop: 07/29/23 07:59 Last Admin: 07/02/23 16:26 Dose: 200 mg Formoterol Fumarate (Formoterol 20 Mcg/2 Ml Vial) 20 mcg INH BIDR [facility] Stop: 08/01/23 18:59 Last Admin: 07/03/23 07:24 Dose: 20 mcg Furosemide (Furosemide 40 Mg/4 Ml Vial) 40 mg IV BID17 [facility] Stop: 07/30/23 08:59 Last Admin: 07/01/23 08:14 Dose: 40 mg Furosemide (Furosemide 40 Mg Tab) 40 mg PO QAM [facility] Stop: 07/31/23 08:59 Last Admin: 07/02/23 08:35 Dose: 40 mg Glucagon (Glucagon For Inj 1 Mg Vial) 1 mg SQ UD PRN; Protocol PRN Reason: Hypoglycemia Protocol Stop: 07/29/23 01:25 Glucose (Glucose 10 Tab/Tube) 4 - 8 tab PO UD PRN; Protocol PRN Reason: Hypoglycemia Treatment Stop: 07/29/23 01:25 Glucose (Glucose 40% Gel 15 Gm Tube) 15 - 30 gm PO UD PRN; Protocol PRN Reason: Hypoglycemia Protocol Stop: 07/29/23 01:25 Guaifenesin (Guaifenesin 600 Mg Tabcr) 600 mg PO Q12 [facility] Stop: 07/30/23 15:54 Last Admin: 07/02/23 20:31 Dose: 600 mg Ertapenem 1,000 mg/ Syringe 10 mls @ 2 mls/min IV Q24H [facility] Stop: 07/04/23 21:04 Last Admin: 07/02/23 20:34 Dose: 2 mls/min Promethazine HCl 6.25 mg/ (Sodium Chloride) 50.25 mls @ 201 mls/hr IV Q6H PRN PRN Reason: Nausea And Vomiting Stop: 07/29/23 01:25 Insulin Aspart (Insulin Aspart Per Unit Charge) 0 units SC ACHS [facility] Stop: 07/29/23 01:25 Last Admin: 07/02/23 20:50 Dose: 5 units Insulin Glargine (Lantus Per Unit Charge) 5 units SQ HS [facility] Stop: 07/29/23 01:25 Last Admin: 07/02/23 20:48 Dose: 5 units Metoprolol Tartrate (Metoprolol Tartrate 100 Mg Tab) 100 mg PO BIDM [facility] Stop: 07/29/23 07:59 Last Admin: 07/02/23 16:25 Dose: 100 mg Miscellaneous (Carbohydrates For Hypoglycemia ) 15 - 30 gm PO UD PRN PRN Reason: Hypoglycemia Protocol Stop: 07/29/23 01:25 Nitroglycerin (Nitroglycerin Sl 0.4 Mg/Tab Tab) 0.4 mg SL Q5M PRN PRN Reason: Chest Pain Stop: 07/29/23 01:25 Potassium Chloride (Potassium Chloride Crtab 20 Meq Tabcr) 20 meq PO BID [facility] Stop: 07/29/23 08:59 Last Admin: 07/02/23 20:31 Dose: 20 meq Sodium Chloride (Sodium Chlor 7% 4 Ml Neb) 4 ml NEB BIDR [facility] Stop: 08/01/23 18:59 Last Admin: 07/03/23 07:24 Dose: 4 ml Spironolactone (Spironolactone 25 Mg Tab) 50 mg PO DAILY [facility] Stop: 07/29/23 08:59 Last Admin: 07/02/23 08:36 Dose: 50 mg Umeclidinium [place] (Umeclidinium [place] 62.5mcg/Blister 7 Puffs/Inhaler) 1 puffs INH QAM [facility] Stop: 07/29/23 08:59 Last Admin: 07/02/23 08:37 Dose: 1 puffs Venlafaxine HCl (Venlafaxine Hcl Xr 150 Mg Capxr) 150 mg PO QAM [facility] Stop: 07/29/23 08:59 Last Admin: 07/02/23 08:36 Dose: 150 mg
[2023-07-03] MEDS: methylPREDNISolone 40 MG in SYRINGE 0 ML IV SCH (12:25)
[2023-07-04 06:09] LABS: Hematocrit (blood only) 49.7 % (37.0-47.0); Hemoglobin 16.4 g/dl (12.0-16.0); Mean Corpuscular Hemoglobin 30.8 pg (25.0-34.0); Mean Corpuscular Volume 93.2 fL (80.0-100.0); Mean Platelet Volume 9.4 fL (9.4-12.4); Platelet Count 277 K/uL (130-400); RDW Standard Deviation 47.8 fL (36.4-46.3); Red Blood Count 5.33 M/uL (4.20-5.40); White Blood Count 10.61 K/ul (4.8-10.8)
[2023-07-04 06:43] LABS: Calcium 9.7 mg/dl (8.6-10.3); Magnesium 2.1 mg/dl (1.7-2.4); Potassium 4.5 mmol/L (3.5-5.1)
[2023-07-04 06:48] LABS: BUN Creatinine Ratio 38.8 (10-20); Creatinine Clr Calc Pharmacy 39.8 ml/min; Est GFR (Non-African American) 49.2 ml/min; Phosphorus 3.1 mg/dl (2.5-4.9)
--- NOTE | 2023-07-04 07:11 | Pulmonology Progress Note ---
Date of Service July 04, 2023 Assessment & Plan (1) Diastolic CHF: (2) COPD exacerbation: (3) Tobacco abuse: Plan Chest x-ray 07/01/2023 personally reviewed: Portable film, fair inspiratory effort, rotated to the right, mild blunting of bilateral costophrenic angle, increased cardiac silhouette, no clear pulmonary infiltrate 2D echo 06/29/2023: Severe concentric LVH, EF 60-65%, RV not well-visualized -- COPD exacerbation COVID-19, influenza A/B, RSV all negative on 06/28/2023 Procalcitonin negative, nasal MRSA negative BNP 588 On Breo 100 and Incruse at home along with albuterol --Current smoker Approximately [id number] smoking history Currently smoking 6 cigarettes a day --A-fib On apixaban --Family history of lung cancer in brother and sister who are smokers Plan: Continue with Brovana as well as budesonide, continue with Incruse inhaler. Can transition Solu-Medrol to 40 mg of prednisone for 3 days followed by 20 mg for 2 days and then stop. Continue with hypertonic saline nebulized and flutter valve. Can consider hypertonic saline nebulized treatment at home Patient is a longtime smoker, she is on beta-rommel. If the above measures does not help then consideration of changing beta-rommel to a calcium channel rommel should be thought of Case was discussed with Dr. Bobo and at bedside with RN No further recommendation from pulmonary perspective, will sign off Please call directly with any questions Please note the above document was generated using voice recognition software. It may contain grammatical, syntax or spelling errors.Any formal questions or concerns about the content, text or information contained within the body of this dictation should be directly addressed to the provider for clarification. Admission and Anticipated Discharge Date Admission Date: June 28, 2023 Subjective Patient seen and examined at bedside. No acute distress, no adverse events overnight Denies any chest pain, no headache, no nausea, no vomiting Was asking for coffee. As per the nurse she is less confused since the last day or so. Shortness of breath is improved Review of Systems 2 Review of Systems: All systems reviewed & are unremarkable except as noted in Subjective Physical Exam 2 Physical Exam: Constitutional: No acute distress HEENT: EOMI, PERRLA, arcus analysis bilaterally Respiratory system: Decreased air entry bilaterally, no rhonchi, no crackles, minimal expiratory wheeze bilaterally which has improved compared to before CVS: S1-S2 positive, no murmurs or gallops, irregular Abdomen: Soft, nontender, nondistended, positive bowel sounds x4 Extremities: +2 pulses bilaterally radialis/ dorsalis pedis, no cyanosis, no edema Neuro: Awake alert oriented to self and place Psych: Normal mood and affect G/U: No [place] Skin: no rashes, warm and dry Lymphatic: no cervical or axillary lymphadenopathy Results & Data Results & Data Vital Signs (Past 12 Hours) Vital Signs Temp Pulse Pulse Resp BP Pulse Ox Pulse Ox 07/04/23 03:49 36.5 C 63 18 160/94 H 93 07/04/23 00:00 86 07/03/23 23:46 36.6 C 75 20 138/85 92 07/03/23 22:16 07/03/23 21:00 93 07/03/23 19:44 36.3 C L 90 22 120/86 95 07/03/23 19:43 90 18 93 O2 Del Method O2 Del Method 07/04/23 03:49 Room Air 07/04/23 00:00 07/03/23 23:46 Room Air 07/03/23 22:16 Room Air 07/03/23 21:00 Room Air 07/03/23 19:44 Room Air 07/03/23 19:43 Room Air Laboratory Results 07/04/23 05:39 07/04/23 05:39 PG Care Time/CCT Total # of Minutes Spent Total Time Spent with Patient: Total time spent is greater than 50% in coordination of care (as documented) at patient's floor/unit and/or counseling patient: Coding Level of Care Code 83528 SUB INP/OBS CARE 2/35MIN Diagnoses Diastolic CHF I50.30 COPD exacerbation J44.1 Tobacco abuse Z72.0
[2023-07-04] MEDS: NICOTINE 7 MG/24 HR TDSY TD SCH (16:19)
--- NOTE | 2023-07-04 16:22 | Hospitalist Progress Note ---
Date of Service July 04, 2023 Assessment & Plan (1) Acute hypoxemic respiratory failure: Plan: Pt is an 87yoF with PMhx significant for chronic diastolic heart failure (EF 55 to 60%, TTE 2021), mild MR, A-fib/atrial flutter on Eliquis, hypertension, hyperlipidemia, PVD status post surgery, COPD, DM 2 on oral medications, recurrent UTIs (history of ESBL), fibromyalgia, mood disorder, past tobacco abuse presenting with SOB. Acute hypoxic respiratory Failure Decompensated heart Failure and COPD exacerb Secondary to decompensated heart failure history of diastolic dysfunction possibly from rapid A-fib/flutter Supplemental O2 Diuretic Rx Strict I/Os, daily weights, CHF education Updated TTE - LV systolic function is normal. No regional wall motion abnormalities noted. There is severe concentric LVH. EF 60 to 65%. There is mild mitral regurg. Compared with study in January 2022, no significant change. Cardiology consulted Re: CHF, pt follows with [facility] [place] [facility] Initially IV lasix -> switched to PO lasix Closely monitor I/os, hemodynamic status Currently on RA, but w/ wheezing CXR repeated - and personally reviewed - pulm. vasc. congestion improved cont. guaifenesin, IS, flutter valve Cont. to has wheezes and dyspnea w/ minimal exertion, even though improved - Pulm. med. consulted COPD exacerb Pt is still a current smoker + wheezes on exam - cont. home inhalers duoneb- however need close monitoring as pt easily tachycardic, added budesonide Pulmonary medicine consulted - cont. Brovana, Budesonide, Incruse. Give solumedrol, hypertonic saline neb. UTI Urine Cx posit. for ESBL E.coli Blood Cx x2 negat. for 48 hrs Continue Ertapenem Acute Metabolic and Toxic Encephalopathy secondary to illness Hold neuropsychotropic medications until patient mentation back to baseline Delirium precautions. Frequent reorientation, avoid sedating medications as able A-fib/atrial flutter continue home metoprolol with Eliquis Hypertension uncontrolled initially secondary to complicated UTI Currently wnl Continue home meds hyperlipidemia on statin Rx DM 2 on oral medications, reasonable control as of recent hemoglobin A1c of 7.1 last year mood disorder at baseline Diet: HH/DMII DVT prophylaxis. Eliquis DNR as per patient's prior wishes as per daughter/POA, MsJamaal Gomez. (2) Diastolic CHF: (3) Acute UTI: (4) Chronic atrial flutter: Admission and Anticipated Discharge Date Admission Date: June 28, 2023 Subjective Pt seen in follow up of shortness of breath, CHF, UTI (ESBL E. coli) Seen by cardiology Sitting up in bed in NAD, Denies any chest pain. Reports feeling tired. Shortness of breath improved. No fever, chills, abd. pain, n/v Pulm. medicine also consulted and discussed with. Review of Systems Review of Systems: All systems reviewed & are unremarkable except as noted in Subjective Physical Exam Physical Exam: GENERAL: obese elderly F in NAD HEENT: NC/AT , EOMI NECK : Supple, no tenderness CHEST : Decreased breath sounds, + scattered expiratory wheezes (improved) HEART : Irregular, no obvious murmurs ABDOMEN: Some distention, nontender, soft EXTREMITIES : Minimal LE swelling, no LE tenderness, moves extremities NEUROLOGIC : awake, alert, answers simple questions appropriately, speech fluent, no facial asymmetry, moves extremities SKIN: warm, dry Results & Data Results & Data Vital Signs (Past 12 Hours) Vital Signs Temp Pulse Pulse Resp BP BP Pulse Ox 07/04/23 15:47 90 07/04/23 11:08 36.4 C 89 20 147/80 H 90 07/04/23 08:00 07/04/23 07:41 36.5 C 68 19 151/97 H 99 07/04/23 07:36 72 18 94 07/04/23 07:32 83 O2 Del Method 07/04/23 15:47 07/04/23 11:08 Room Air 07/04/23 08:00 Room Air 07/04/23 07:41 Room Air 07/04/23 07:36 Room Air 07/04/23 07:32 Laboratory Results 07/04/23 07/04/23 07/04/23 Range/Units 11:59 08:06 05:39 WBC 10.61 (4.8-10.8) K/ul RBC 5.33 (4.20-5.40) M/uL Hgb 16.4 H (12.0-16.0) g/dl Hct 49.7 H (37.0-47.0) % MCV 93.2 (80.0-100.0) fL MCH 30.8 (25.0-34.0) pg MCHC 33.0 (32.0-36.0) g/dL RDW Std Deviation 47.8 H (36.4-46.3) fL RDW Coeff of Carmenza 14.0 (11.5-14.5) % Plt Count 277 (130-400) K/uL MPV 9.4 (9.4-12.4) fL Sodium 137 (136-145) mmol/L Potassium 4.5 (3.5-5.1) mmol/L Chloride 104 (98-107) mmol/L Carbon Dioxide 23 (21-32) mmol/L Anion Gap 10 (3-11) BUN 40 H (6-23) mg/dl Creatinine 1.03 (0.6-1.2) mg/dl Est Cr Clr Drug Dosing 39.8 ml/min Est GFR ( Amer) 57.0 ml/min Est GFR (Non-Af Amer) 49.2 ml/min BUN/Creatinine Ratio 38.8 H (10-20) Glucose 113 H (70-99(Fasting)) mg/dl POC Glucose 142 H 137 H (70-99) mg/dl Calcium 9.7 (8.6-10.3) mg/dl Phosphorus 3.1 (2.5-4.9) mg/dl Magnesium 2.1 (1.7-2.4) mg/dl 07/03/23 07/03/23 Range/Units 20:55 16:59 WBC (4.8-10.8) K/ul RBC (4.20-5.40) M/uL Hgb (12.0-16.0) g/dl Hct (37.0-47.0) % MCV (80.0-100.0) fL MCH (25.0-34.0) pg MCHC (32.0-36.0) g/dL RDW Std Deviation (36.4-46.3) fL RDW Coeff of Acrmenza (11.5-14.5) % Plt Count (130-400) K/uL MPV (9.4-12.4) fL Sodium (136-145) mmol/L Potassium (3.5-5.1) mmol/L Chloride (98-107) mmol/L Carbon Dioxide (21-32) mmol/L Anion Gap (3-11) BUN (6-23) mg/dl Creatinine (0.6-1.2) mg/dl Est Cr Clr Drug Dosing ml/min Est GFR ( Amer) ml/min Est GFR (Non-Af Amer) ml/min BUN/Creatinine Ratio (10-20) Glucose (70-99(Fasting)) mg/dl POC Glucose 143 H 231 H (70-99) mg/dl Calcium (8.6-10.3) mg/dl Phosphorus (2.5-4.9) mg/dl Magnesium (1.7-2.4) mg/dl Medications Administered Current Inpatient Medications Acetaminophen (Acetaminophen 325 Mg Tab) 650 mg PO QID PRN PRN Reason: pain/fever Stop: 07/29/23 01:25 Albuterol (Albut/Ipratrop 3mg/0.5mg Neb 3 Ml Vial) 3 ml NEB Q4R PRN; Protocol PRN Reason: SOB/Wheezing Stop: 07/29/23 14:59 Apixaban (Apixaban 5 Mg Tablet) 5 mg PO BIDM [facility] Stop: 07/29/23 01:25 Last Admin: 07/04/23 08:56 Dose: 5 mg Atorvastatin Calcium (Atorvastatin 10 Mg Tab) 10 mg PO QAM [facility] Stop: 07/29/23 08:59 Last Admin: 07/04/23 08:57 Dose: 10 mg Budesonide (Budesonide 0.5 Mg/2 Ml Vial (Pulmicort)) 0.5 mg NEB BIDR [facility] Stop: 07/30/23 18:59 Last Admin: 07/04/23 07:35 Dose: 0.5 mg Dextrose (Dextrose 50% 50 Ml Syringe) 25 - 50 ml IV UD PRN; Protocol PRN Reason: Hypoglycemia Protocol Stop: 07/29/23 01:25 Docusate Sodium (Docusate Sodium 100 Mg Cap) 200 mg PO BIDM [facility] Stop: 07/29/23 07:59 Last Admin: 07/04/23 08:56 Dose: 200 mg Formoterol Fumarate (Formoterol 20 Mcg/2 Ml Vial) 20 mcg INH BIDR [facility] Stop: 08/01/23 18:59 Last Admin: 07/04/23 07:35 Dose: 20 mcg Furosemide (Furosemide 40 Mg/4 Ml Vial) 40 mg IV BID17 [facility] Stop: 07/30/23 08:59 Last Admin: 07/01/23 08:14 Dose: 40 mg Furosemide (Furosemide 40 Mg Tab) 40 mg PO QAM [facility] Stop: 07/31/23 08:59 Last Admin: 07/04/23 08:57 Dose: 40 mg Glucagon (Glucagon For Inj 1 Mg Vial) 1 mg SQ UD PRN; Protocol PRN Reason: Hypoglycemia Protocol Stop: 07/29/23 01:25 Glucose (Glucose 10 Tab/Tube) 4 - 8 tab PO UD PRN; Protocol PRN Reason: Hypoglycemia Treatment Stop: 07/29/23 01:25 Glucose (Glucose 40% Gel 15 Gm Tube) 15 - 30 gm PO UD PRN; Protocol PRN Reason: Hypoglycemia Protocol Stop: 07/29/23 01:25 Guaifenesin (Guaifenesin 600 Mg Tabcr) 600 mg PO Q12 [facility] Stop: 07/30/23 15:54 Last Admin: 07/04/23 08:57 Dose: 600 mg Ertapenem 1,000 mg/ Syringe 10 mls @ 2 mls/min IV Q24H [facility] Stop: 07/04/23 21:04 Last Admin: 07/03/23 21:25 Dose: 2 mls/min Promethazine HCl 6.25 mg/ (Sodium Chloride) 50.25 mls @ 201 mls/hr IV Q6H PRN PRN Reason: Nausea And Vomiting Stop: 07/29/23 01:25 Methylprednisolone 40 mg/ (Syringe) 0.64 mls @ 1.5 mls/min IV DAILY [facility] Stop: 08/02/23 11:29 Last Admin: 07/04/23 08:57 Dose: 1.5 mls/min Insulin Aspart (Insulin Aspart Per Unit Charge) 0 units SC ACHS [facility] Stop: 07/29/23 01:25 Last Admin: 07/04/23 12:55 Dose: 2 units Insulin Glargine (Lantus Per Unit Charge) 5 units SQ HS [facility] Stop: 07/29/23 01:25 Last Admin: 07/03/23 21:25 Dose: 5 units Metoprolol Tartrate (Metoprolol Tartrate 100 Mg Tab) 100 mg PO BIDM [facility] Stop: 07/29/23 07:59 Last Admin: 07/04/23 08:56 Dose: 100 mg Miscellaneous (Carbohydrates For Hypoglycemia ) 15 - 30 gm PO UD PRN PRN Reason: Hypoglycemia Protocol Stop: 07/29/23 01:25 Miscellaneous (Remove Nicoderm Patch) 1 each N/A DAILY@0859 [facility] Stop: 08/04/23 08:58 Nicotine (Nicotine 7 Mg/24 Hr Tdsy) 7 mg TD QAM [facility] Stop: 08/03/23 15:29 Last Admin: 07/04/23 16:19 Dose: 7 mg Nitroglycerin (Nitroglycerin Sl 0.4 Mg/Tab Tab) 0.4 mg SL Q5M PRN PRN Reason: Chest Pain Stop: 07/29/23 01:25 Potassium Chloride (Potassium Chloride Crtab 20 Meq Tabcr) 20 meq PO BID [facility] Stop: 07/29/23 08:59 Last Admin: 07/04/23 09:02 Dose: 20 meq Sodium Chloride (Sodium Chlor 7% 4 Ml Neb) 4 ml NEB BIDR [facility] Stop: 08/01/23 18:59 Last Admin: 07/04/23 07:35 Dose: 4 ml Spironolactone (Spironolactone 25 Mg Tab) 50 mg PO DAILY [facility] Stop: 07/29/23 08:59 Last Admin: 07/03/23 09:17 Dose: Not Given Umeclidinium [place] (Umeclidinium [place] 62.5mcg/Blister 7 Puffs/Inhaler) 1 puffs INH QAM [facility] Stop: 07/29/23 08:59 Last Admin: 07/04/23 08:57 Dose: 1 puffs Venlafaxine HCl (Venlafaxine Hcl Xr 150 Mg Capxr) 150 mg PO QAM [facility] Stop: 07/29/23 08:59 Last Admin: 07/04/23 08:57 Dose: 150 mg
[2023-07-05 10:41] LABS: BUN Creatinine Ratio 35.4 (10-20); Calcium 9.5 mg/dl (8.6-10.3); Creatinine Clr Calc Pharmacy 32.2 ml/min; Est GFR (African American) 44.3 ml/min; Est GFR (Non-African American) 38.2 ml/min; Potassium 3.9 mmol/L (3.5-5.1)
--- NOTE | 2023-07-05 11:09 | Hospitalist Progress Note ---
Date of Service July 05, 2023 Assessment & Plan (1) Acute hypoxemic respiratory failure: Plan: Pt is an 87yoF with PMhx significant for chronic diastolic heart failure (EF 55 to 60%, TTE 2021), mild MR, A-fib/atrial flutter on Eliquis, hypertension, hyperlipidemia, PVD status post surgery, COPD, DM 2 on oral medications, recurrent UTIs (history of ESBL), fibromyalgia, mood disorder, past tobacco abuse presenting with SOB. Acute hypoxic respiratory Failure Decompensated heart Failure and COPD exacerb Secondary to decompensated heart failure history of diastolic dysfunction possibly from rapid A-fib/flutter Supplemental O2 Diuretic Rx Strict I/Os, daily weights, CHF education Updated TTE - LV systolic function is normal. No regional wall motion abnormalities noted. There is severe concentric LVH. EF 60 to 65%. There is mild mitral regurg. Compared with study in January 2022, no significant change. Cardiology consulted Re: CHF, pt follows with [facility] Initially IV lasix -> switched to PO lasix Closely monitor I/os, hemodynamic status Currently on RA, but w/ wheezing CXR repeated - and personally reviewed - pulm. vasc. congestion improved cont. guaifenesin, IS, flutter valve Cont. to has wheezes and dyspnea w/ minimal exertion, even though improved - Pulm. med. consulted COPD exacerb Pt is still a current smoker + wheezes on exam - cont. home inhalers duoneb- however need close monitoring as pt easily tachycardic, added budesonide Pulmonary medicine consulted - cont. Brovana, Budesonide, Incruse. Give solumedrol, hypertonic saline neb. On discharge, recommend prednisone taper, and hypertonic saline neb. UTI Urine Cx posit. for ESBL E.coli Blood Cx x2 negat. for 48 hrs Treated w/ Ertapenem for 7 days Acute Metabolic and Toxic Encephalopathy secondary to illness Hold neuropsychotropic medications until patient mentation back to baseline Delirium precautions. Frequent reorientation, avoid sedating medications as able Mental status seems back to baseline A-fib/atrial flutter continue home metoprolol with Eliquis Hypertension uncontrolled initially secondary to complicated UTI Currently wnl Continue home meds hyperlipidemia on statin Rx DM 2 on oral medications, reasonable control as of recent hemoglobin A1c of 7.1 last year mood disorder at baseline Diet: HH/DMII DVT prophylaxis. Eliquis DNR as per patient's prior wishes as per daughter/POA, Ms. Mariana Gomez. (2) Diastolic CHF: (3) Acute UTI: (4) Chronic atrial flutter: Admission and Anticipated Discharge Date Admission Date: June 28, 2023 Subjective Pt seen in follow up of shortness of breath, CHF, UTI (ESBL E. coli) Seen by cardiology Sitting up in chair in NAD, Denies any chest pain. Reports feeling tired. Shortness of breath improved. No fever, chills, abd. pain, n/v Pulm. medicine also consulted Update: notified by RN that pt had episode of vtach, 4 beats, pt was asymptomatic. Will cont. to monitor. [place] [facility] notified as well by RN. Review of Systems Review of Systems: All systems reviewed & are unremarkable except as noted in Subjective Physical Exam Physical Exam: GENERAL: obese elderly F in NAD HEENT: NC/AT , EOMI NECK : Supple, no tenderness CHEST : Decreased breath sounds, + scattered expiratory wheezes (improved) HEART : Irregular, no obvious murmurs ABDOMEN: Some distention, nontender, soft EXTREMITIES : Minimal LE swelling, no LE tenderness, moves extremities NEUROLOGIC : awake, alert, answers simple questions appropriately, speech fluent, no facial asymmetry, moves extremities SKIN: warm, dry Results & Data Results & Data Vital Signs (Past 12 Hours) Vital Signs Temp Pulse Pulse Resp BP BP Pulse Ox 07/05/23 09:44 07/05/23 08:20 83 07/05/23 07:54 78 19 92 07/05/23 07:30 36.3 C L 77 18 168/80 H 97 07/05/23 03:57 36.3 C L 77 20 152/83 H 95 07/04/23 23:35 36.5 C 97 H 18 165/83 H 92 O2 Del Method FiO2 07/05/23 09:44 Room Air 07/05/23 08:20 07/05/23 07:54 Room Air 21 07/05/23 07:30 Room Air 07/05/23 03:57 Room Air 07/04/23 23:35 Room Air Laboratory Results 07/05/23 07/05/23 07/04/23 Range/Units 09:52 09:06 21:45 Sodium 137 (136-145) mmol/L Potassium 3.9 (3.5-5.1) mmol/L Chloride 102 (98-107) mmol/L Carbon Dioxide 24 (21-32) mmol/L Anion Gap 11 (3-11) BUN 45 H (6-23) mg/dl Creatinine 1.27 H (0.6-1.2) mg/dl Est Cr Clr Drug Dosing 32.2 ml/min Est GFR ( Amer) 44.3 ml/min Est GFR (Non-Af Amer) 38.2 ml/min BUN/Creatinine Ratio 35.4 H (10-20) Glucose 216 H (70-99(Fasting)) mg/dl POC Glucose 204 H 133 H (70-99) mg/dl Calcium 9.5 (8.6-10.3) mg/dl Phosphorus 4.0 (2.5-4.9) mg/dl Magnesium 2.0 (1.7-2.4) mg/dl 07/04/23 07/04/23 Range/Units 16:52 11:59 Sodium (136-145) mmol/L Potassium (3.5-5.1) mmol/L Chloride (98-107) mmol/L Carbon Dioxide (21-32) mmol/L Anion Gap (3-11) BUN (6-23) mg/dl Creatinine (0.6-1.2) mg/dl Est Cr Clr Drug Dosing ml/min Est GFR ( Amer) ml/min Est GFR (Non-Af Amer) ml/min BUN/Creatinine Ratio (10-20) Glucose (70-99(Fasting)) mg/dl POC Glucose 145 H 142 H (70-99) mg/dl Calcium (8.6-10.3) mg/dl Phosphorus (2.5-4.9) mg/dl Magnesium (1.7-2.4) mg/dl Medications Administered Current Inpatient Medications Acetaminophen (Acetaminophen 325 Mg Tab) 650 mg PO QID PRN PRN Reason: pain/fever Stop: 07/29/23 01:25 Albuterol (Albut/Ipratrop 3mg/0.5mg Neb 3 Ml Vial) 3 ml NEB Q4R PRN; Protocol PRN Reason: SOB/Wheezing Stop: 07/29/23 14:59 Apixaban (Apixaban 5 Mg Tablet) 5 mg PO BIDM [facility] Stop: 07/29/23 01:25 Last Admin: 07/05/23 15:58 Dose: 5 mg Atorvastatin Calcium (Atorvastatin 10 Mg Tab) 10 mg PO QAM [facility] Stop: 07/29/23 08:59 Last Admin: 07/05/23 09:26 Dose: 10 mg Budesonide (Budesonide 0.5 Mg/2 Ml Vial (Pulmicort)) 0.5 mg NEB BIDR [facility] Stop: 07/30/23 18:59 Last Admin: 07/05/23 07:52 Dose: 0.5 mg Dextrose (Dextrose 50% 50 Ml Syringe) 25 - 50 ml IV UD PRN; Protocol PRN Reason: Hypoglycemia Protocol Stop: 07/29/23 01:25 Docusate Sodium (Docusate Sodium 100 Mg Cap) 200 mg PO BIDM [facility] Stop: 07/29/23 07:59 Last Admin: 07/05/23 15:58 Dose: 200 mg Formoterol Fumarate (Formoterol 20 Mcg/2 Ml Vial) 20 mcg INH BIDR [facility] Stop: 08/01/23 18:59 Last Admin: 07/05/23 07:52 Dose: 20 mcg Furosemide (Furosemide 40 Mg Tab) [facility] [place] [facility]: 07/31/23 08:59 Last Admin: 07/05/23 08:43 Dose: 40 mg Glucagon (Glucagon For Inj 1 Mg Vial) 1 mg SQ UD PRN; Protocol PRN Reason: Hypoglycemia Protocol Stop: 07/29/23 01:25 Glucose (Glucose 10 Tab/Tube) 4 - 8 tab PO UD PRN; Protocol PRN Reason: Hypoglycemia Treatment Stop: 07/29/23 01:25 Glucose (Glucose 40% Gel 15 Gm Tube) 15 - 30 gm PO UD PRN; Protocol PRN Reason: Hypoglycemia Protocol Stop: 07/29/23 01:25 Guaifenesin (Guaifenesin 600 Mg Tabcr) 600 mg PO Q12 [facility] Stop: 07/30/23 15:54 Last Admin: 07/05/23 09:26 Dose: 600 mg Promethazine HCl 6.25 mg/ (Sodium Chloride) 50.25 mls @ 201 mls/hr IV Q6H PRN PRN Reason: Nausea And Vomiting Stop: 07/29/23 01:25 Methylprednisolone 40 mg/ (Syringe) 0.64 mls @ 1.5 mls/min IV DAILY [facility] Stop: 08/02/23 11:29 Last Admin: 07/05/23 09:28 Dose: 1.5 mls/min Insulin Aspart (Insulin Aspart Per Unit Charge) 0 units SC ACHS [facility] Stop: 07/29/23 01:25 Last Admin: 07/05/23 12:54 Dose: 2 units Insulin Glargine (Lantus Per Unit Charge) 5 units SQ HS [facility] Stop: 07/29/23 01:25 Last Admin: 07/04/23 21:54 Dose: 5 units Metoprolol Tartrate (Metoprolol Tartrate 100 Mg Tab) 100 mg PO BIDM [facility] Stop: 07/29/23 07:59 Last Admin: 07/05/23 15:58 Dose: 100 mg Miscellaneous (Carbohydrates For Hypoglycemia ) 15 - 30 gm PO UD PRN PRN Reason: Hypoglycemia Protocol Stop: 07/29/23 01:25 Miscellaneous (Remove Nicoderm Patch) 1 each N/A DAILY@0859 [facility] Stop: 08/04/23 08:58 Last Admin: 07/05/23 09:28 Dose: 1 each Nicotine (Nicotine 7 Mg/24 Hr Tdsy) 7 mg TD QAM [facility] Stop: 08/03/23 15:29 Last Admin: 07/05/23 08:44 Dose: 7 mg Nitroglycerin (Nitroglycerin Sl 0.4 Mg/Tab Tab) 0.4 mg SL Q5M PRN PRN Reason: Chest Pain Stop: 07/29/23 01:25 Potassium Chloride (Potassium Chloride Crtab 20 Meq Tabcr) 20 meq PO BID [facility] Stop: 07/29/23 08:59 Last Admin: 07/05/23 09:31 Dose: 20 meq Sodium Chloride (Sodium Chlor 7% 4 Ml Neb) 4 ml NEB BIDR [facility] Stop: 08/01/23 18:59 Last Admin: 07/05/23 07:52 Dose: 4 ml Spironolactone (Spironolactone 25 Mg Tab) 50 mg PO DAILY [facility] Stop: 07/29/23 08:59 Last Admin: 07/03/23 09:17 Dose: Not Given Umeclidinium [place] (Umeclidinium [place] 62.5mcg/Blister 7 Puffs/Inhaler) 1 puffs INH QAM [facility] Stop: 07/29/23 08:59 Last Admin: 07/05/23 08:44 Dose: 1 puffs Venlafaxine HCl (Venlafaxine Hcl Xr 150 Mg Capxr) 150 mg PO QAM [facility] Stop: 07/29/23 08:59 Last Admin: 07/05/23 09:26 Dose: 150 mg
[2023-07-06 08:29] LABS: Hematocrit (blood only) 50.8 % (37.0-47.0); Hemoglobin 16.7 g/dl (12.0-16.0); Mean Corpuscular Hemoglobin 30.9 pg (25.0-34.0); Mean Corpuscular Hgb Conc 32.9 g/dL (32.0-36.0); Mean Corpuscular Volume 93.9 fL (80.0-100.0); Mean Platelet Volume 9.3 fL (9.4-12.4); Platelet Count 315 K/uL (130-400); RDW Standard Deviation 48.3 fL (36.4-46.3); Red Blood Count 5.41 M/uL (4.20-5.40); White Blood Count 11.29 K/ul (4.8-10.8)
[2023-07-06 09:15] LABS: Anion Gap 11 (3-11); Blood Urea Nitrogen 46 mg/dl (6-23); Calcium 9.8 mg/dl (8.6-10.3); Carbon Dioxide 26 mmol/L (21-32); Chloride 102 mmol/L (98-107); Creatinine Clr Calc Pharmacy 33.9 ml/min; Est GFR (African American) 46.9 ml/min; Est GFR (Non-African American) 40.5 ml/min; Glucose 111 mg/dl (70-99(Fasting)); Magnesium 2.3 mg/dl (1.7-2.4); Phosphorus 3.7 mg/dl (2.5-4.9); Sodium 139 mmol/L (136-145)
[2023-07-06] MEDS ORDERED: MELATONIN 3 MG TAB PO PRN (10:06)
--- NOTE | 2023-07-06 10:08 | Hospitalist Progress Note ---
Date of Service July 06, 2023 Assessment & Plan (1) Acute hypoxemic respiratory failure: Plan: per previous hospitalist notes with addendum: Pt is an 87yoF with PMhx significant for chronic diastolic heart failure (EF 55 to 60%, TTE 2021), mild MR, A-fib/atrial flutter on Eliquis, hypertension, hyperlipidemia, PVD status post surgery, COPD, DM 2 on oral medications, recurrent UTIs (history of ESBL), fibromyalgia, mood disorder, past tobacco abuse presenting with SOB. Acute hypoxic respiratory Failure Decompensated heart Failure and COPD exacerb Secondary to decompensated heart failure history of diastolic dysfunction possibly from rapid A-fib/flutter Supplemental O2 Diuretic Rx Strict I/Os, daily weights, CHF education Updated TTE - LV systolic function is normal. No regional wall motion abnormalities noted. There is severe concentric LVH. EF 60 to 65%. There is mild mitral regurg. Compared with study in January 2022, no significant change. Cardiology consulted Re: CHF, pt follows with [facility] [place] Cardiology Initially IV lasix -> switched to PO lasix Closely monitor I/os, hemodynamic status Currently on RA, but w/ wheezing CXR repeated - and personally reviewed - pulm. vasc. congestion improved cont. guaifenesin, IS, flutter valve Cont. to has wheezes and dyspnea w/ minimal exertion, even though improved - Pulm. med. consulted 07/05 off oxygen supplement appears euvolemic continue lasix still has mild wheeze repeat CXR: (+) LL opacity obtain CT Chest transition from Solumedrol to Prednisone 30mg po daily continue rest of the regimen COPD exacerb Pt is still a current smoker + wheezes on exam - cont. home inhalers duoneb- however need close monitoring as pt easily tachycardic, added budesonide Pulmonary medicine consulted - cont. Brovana, Budesonide, Incruse. Give solumedrol, hypertonic saline neb. On discharge, recommend prednisone taper, and hypertonic saline neb. 4/2 management per above UTI Urine Cx posit. for ESBL E.coli Blood Cx x2 negat. for 48 hrs Treated w/ Ertapenem for 7 days Acute Metabolic and Toxic Encephalopathy secondary to illness Hold neuropsychotropic medications until patient mentation back to baseline Delirium precautions. Frequent reorientation, avoid sedating medications as able Mental status seems back to baseline 4/2 appears drowsy today did not sleep til 5am monitor closely A-fib/atrial flutter continue home metoprolol with Elimasoud Hypertension uncontrolled initially secondary to complicated UTI Currently wnl Continue home meds hyperlipidemia on statin Rx DM 2 on oral medications, reasonable control as of recent hemoglobin A1c of 7.1 last year mood disorder at baseline Diet: HH/DMII DVT prophylaxis. Eliquis DNR as per patient's prior wishes as per daughter/POA, Ms. Mariana Gomez. Disposition pending PT/OT eval may need SNF (2) Diastolic CHF: (3) Acute UTI: (4) Chronic atrial flutter: Admission and Anticipated Discharge Date Admission Date: June 28, 2023 Subjective ff up for CHF and COPD exacerbation, etc seen resting in bed, comfortable drowsy states she feels fine breathing is ok, still has some cough no dyspnea no chest pain, dyspnea, palpitations, dizziness no other symptoms Review of Systems Review of Systems: all noted and negative except for above Physical Exam Physical Exam: General- oriented x 2, not in distress, speaks in sentences with no effort or accessory muscle use Eyes- anicteric Neck- no JVD Lungs- (+) mild wheeze on the upper field of the right lung clear on the left Heart- normal rate, regular rhythm; no murmurs Abdomen- normal bowel sounds, nondistended, soft, nontender Extremities- no pretibial edema, no calf tenderness Neuro- alert, oriented x 3; no gross focal neurologic deficits Skin- warm & dry Results & Data Results & Data Vital Signs (Past 12 Hours) Vital Signs Temp Pulse Pulse Resp BP BP Pulse Ox 07/06/23 08:23 07/06/23 08:11 36.4 C L 82 17 164/116 H 95 07/06/23 07:26 88 15 96 07/06/23 07:13 85 07/06/23 03:45 78 167/82 H 07/06/23 03:12 36.3 C L 81 20 176/81 H 95 07/05/23 23:22 36.6 C 84 20 164/84 H 94 07/05/23 22:15 81 O2 Del Method FiO2 07/06/23 08:23 Room Air 07/06/23 08:11 Room Air 07/06/23 07:26 Room Air 21 07/06/23 07:13 07/06/23 03:45 07/06/23 03:12 Room Air 07/05/23 23:22 Room Air 07/05/23 22:15 all noted and reviewed including below
--- NOTE | 2023-07-06 11:35 | XRay Report ---
XR chest 1V portable CLINICAL HISTORY: ff up acute hypoxia COMPARISON STUDY: Chest radiograph July 01, 2023. FINDINGS: No pneumothorax or definite pleural effusion is identified. There is mild left basilar opac ity. Interstitial thickening is unchanged. Cardiomediastinal silhouette is stable. IMPRESSION: 1. Mild left basilar opacity. This could reflect atelectasis or pneumonia. 2. Stable interstitial thickening. This may reflect mild pulmonary edema. ACT 112: Negative or not required by law. Electronically signed by: Man Linda M.D. 07/06/2023 11:34 AM
[2023-07-06] MEDS: predniSONE 10 MG TABLET PO SCH (14:18)
--- NOTE | 2023-07-06 14:48 | CT Scan Report ---
CT chest diagnostic wo con CLINICAL HISTORY: r/o pneumonia TECHNIQUE: Multidetector row helical CT of the chest was performed. Coronal and sagittal reformations were obtained. Automated dose lowering techniques and/or adjustment according to patient size were u tilized for this exam. CT DOSE: 429.46 mGy.cm Comparison: Comparison is made to CT chest 12/24/2019 and chest radiograph 07/06/2023 FINDINGS: Lungs and pleura: Groundglass opacities are seen in the left greater than right lower lobe along with bronchial wall thickening and left lower lobe volume loss. Heart and pericardium: Cardiomegaly is seen with biatrial enlargement. Mitral annular calcifications are seen. Vessels: Pulmonary trunk measures 32 mm. Moderate atherosclerotic disease is seen. Mediastinum and anabell: Subcentimeter lymph nodes are seen. Chest wall and lower neck: Unremarkable. Abdomen: Left-sided adrenal adenoma is partially visualized. Bones: Degenerative changes in the thoracic spine. Chronic deformity in the left ribs. IMPRESSION: Groundglass opacities and volume loss in the left lower lobe may represent atelectasis with or withou t superimposed pneumonia. Bronchial wall thickening is seen compatible with infectious/inflammatory a irways disease. ACT 112: Negative or not required by law. Electronically signed by: Wong Ramos M.D. 07/06/2023 2:46 PM
[2023-07-06] MEDS: CEFEPIME 2,000 MG in SYRINGE 0 ML IV SCH (19:45)
[2023-07-06] MEDS: DOXYCYCLINE HYCLATE 100 MG CAP PO SCH (21:38)
[2023-07-07] MEDS: ADVANCED PROBIOTIC 625 MG CAPSULE PO SCH (08:35)
--- NOTE | 2023-07-07 19:22 | Hospitalist Progress Note ---
Date of Service July 07, 2023 Assessment & Plan (1) Acute hypoxemic respiratory failure: Plan: per previous hospitalist notes with addendum: Pt is an 87yoF with PMhx significant for chronic diastolic heart failure (EF 55 to 60%, TTE 2021), mild MR, A-fib/atrial flutter on Eliquis, hypertension, hyperlipidemia, PVD status post surgery, COPD, DM 2 on oral medications, recurrent UTIs (history of ESBL), fibromyalgia, mood disorder, past tobacco abuse presenting with SOB. Acute hypoxic respiratory Failure Decompensated heart Failure and COPD exacerb Secondary to decompensated heart failure history of diastolic dysfunction possibly from rapid A-fib/flutter Supplemental O2 Diuretic Rx Strict I/Os, daily weights, CHF education Updated TTE - LV systolic function is normal. No regional wall motion abnormalities noted. There is severe concentric LVH. EF 60 to 65%. There is mild mitral regurg. Compared with study in January 2022, no significant change. Cardiology consulted Re: CHF, pt follows with [facility] Cardiology Initially IV lasix -> switched to PO lasix Closely monitor I/os, hemodynamic status Currently on RA, but w/ wheezing CXR repeated - and personally reviewed - pulm. vasc. congestion improved cont. guaifenesin, IS, flutter valve Cont. to has wheezes and dyspnea w/ minimal exertion, even though improved - Pulm. med. consulted 4/2 off oxygen supplement appears euvolemic continue lasix still has mild wheeze repeat CXR: (+) LL opacity obtain CT Chest transition from Solumedrol to Prednisone 30mg po daily continue rest of the regimen 4/3 improving continue IV Abx COPD exacerb Pt is still a current smoker + wheezes on exam - cont. home inhalers duoneb- however need close monitoring as pt easily tachycardic, added budesonide Pulmonary medicine consulted - cont. Brovana, Budesonide, Incruse. Give solumedrol, hypertonic saline neb. On discharge, recommend prednisone taper, and hypertonic saline neb. 4/3 management per above UTI Urine Cx posit. for ESBL E.coli Blood Cx x2 negat. for 48 hrs Treated w/ Ertapenem for 7 days Acute Metabolic and Toxic Encephalopathy secondary to illness Hold neuropsychotropic medications until patient mentation back to baseline Delirium precautions. Frequent reorientation, avoid sedating medications as able Mental status seems back to baseline 4/3 somewhat confused today delirium prevention strategies monitor closely A-fib/atrial flutter continue home metoprolol with Eliqujuan Hypertension uncontrolled initially secondary to complicated UTI Currently wnl Continue home meds hyperlipidemia on statin Rx DM 2 on oral medications, reasonable control as of recent hemoglobin A1c of 7.1 last year mood disorder at baseline Diet: HH/DMII DVT prophylaxis. Eliquis DNR as per patient's prior wishes as per daughter/POA, Ms. Mariana Gomez. Disposition pending PT/OT eval may need SNF (2) Diastolic CHF: (3) Acute UTI: (4) Chronic atrial flutter: Admission and Anticipated Discharge Date Admission Date: June 28, 2023 Subjective ff up for hypoxia, pneumonia, etc seen resting in bed, comfortable awake, conversant states she feels improved today but still tired no chest pain, dyspnea, palpitations, dizziness somewhat confused Review of Systems Review of Systems: all noted and negative except for above Physical Exam Physical Exam: General- oriented x 1-2, not in distress, speaks in sentences with no effort or accessory muscle use Eyes- anicteric Neck- no JVD Lungs- mild rales at the left base Heart- normal rate, regular rhythm; no murmurs Abdomen- normal bowel sounds, nondistended, soft, nontender Extremities- no pretibial edema, no calf tenderness Neuro- alert, oriented x 3; no gross focal neurologic deficits Skin- warm & dry Results & Data Results & Data Vital Signs (Past 12 Hours) Vital Signs Temp Pulse Pulse Resp BP BP Pulse Ox 07/07/23 15:00 36.5 C 90 18 137/91 93 07/07/23 13:59 96 H 07/07/23 08:15 36.4 C L 79 16 152/80 H 94 07/07/23 07:50 84 07/07/23 07:38 O2 Del Method 07/07/23 15:00 Room Air 07/07/23 13:59 07/07/23 08:15 Room Air 07/07/23 07:50 07/07/23 07:38 Room Air
[2023-07-08 06:30] LABS: Creatinine Clr Calc Pharmacy 32.1 ml/min; Est GFR (African American) 44.3 ml/min; Est GFR (Non-African American) 38.2 ml/min
--- NOTE | 2023-07-08 18:41 | Hospitalist Progress Note ---
Date of Service July 08, 2023 Assessment & Plan (1) Acute hypoxemic respiratory failure: Plan: per previous hospitalist notes with addendum: Pt is an 87yoF with PMhx significant for chronic diastolic heart failure (EF 55 to 60%, TTE 2021), mild MR, A-fib/atrial flutter on Eliquis, hypertension, hyperlipidemia, PVD status post surgery, COPD, DM 2 on oral medications, recurrent UTIs (history of ESBL), fibromyalgia, mood disorder, past tobacco abuse presenting with SOB. Acute hypoxic respiratory Failure Decompensated heart Failure and COPD exacerb Secondary to decompensated heart failure history of diastolic dysfunction possibly from rapid A-fib/flutter Supplemental O2 Diuretic Rx Strict I/Os, daily weights, CHF education Updated TTE - LV systolic function is normal. No regional wall motion abnormalities noted. There is severe concentric LVH. EF 60 to 65%. There is mild mitral regurg. Compared with study in January 2022, no significant change. Cardiology consulted Re: CHF, [place] [facility] [place] Initially IV lasix -> switched to PO lasix Closely monitor I/os, hemodynamic status Currently on RA, but w/ wheezing CXR repeated - and personally reviewed - pulm. vasc. congestion improved cont. guaifenesin, IS, flutter valve Cont. to has wheezes and dyspnea w/ minimal exertion, even though improved - Pulm. med. consulted 07/05 off oxygen supplement appears euvolemic continue lasix still has mild wheeze repeat CXR: (+) LL opacity obtain CT Chest transition from Solumedrol to Prednisone 30mg po daily continue rest of the regimen 4/3 improving continue IV Abx / improving continue present regimen PT/OT eval COPD exacerbation Pt is still a current smoker + wheezes on exam - cont. home inhalers duoneb- however need close monitoring as pt easily tachycardic, added budesonide Pulmonary medicine consulted - cont. Brovana, Budesonide, Incruse. Give solumedrol, hypertonic saline neb. On discharge, recommend prednisone taper, and hypertonic saline neb. 4/4 management per above UTI Urine Cx posit. for ESBL E.coli Blood Cx x2 negat. for 48 hrs Treated w/ Ertapenem for 7 days Acute Metabolic and Toxic Encephalopathy secondary to illness Hold neuropsychotropic medications until patient mentation back to baseline Delirium precautions. Frequent reorientation, avoid sedating medications as able Mental status seems back to baseline 4/3 somewhat confused today delirium prevention strategies monitor closely /4 MS improving monitor A-fib/atrial flutter continue home metoprolol with Eliquis Hypertension uncontrolled initially secondary to complicated UTI Currently wnl Continue home meds hyperlipidemia on statin Rx DM 2 on oral medications, reasonable control as of recent hemoglobin A1c of 7.1 last year mood disorder at baseline Diet: HH/DMII DVT prophylaxis. Eliquis DNR as per patient's prior wishes as per daughter/POA, Ms. Mariana Gomez. Disposition pending PT/OT eval may need SNF (2) Diastolic CHF: (3) Acute UTI: (4) Chronic atrial flutter: Admission and Anticipated Discharge Date Admission Date: June 28, 2023 Subjective ff up for pneumonia, etc seen resting in bed, comfortable alert, answers most questions appropriately states she feels improved today no dyspnea less cough no other new symptoms Review of Systems Review of Systems: all noted and negative except for above Physical Exam Physical Exam: General- oriented x 2, not in distress, speaks in sentences with no effort or accessory muscle use Eyes- anicteric Neck- no JVD Lungs- mild rales left base Heart- normal rate, regular rhythm; no murmurs Abdomen- normal bowel sounds, nondistended, soft, no tenderness Extremities- no pretibial edema, no calf tenderness Neuro- alert, oriented x 2; no gross focal neurologic deficits Skin- warm & dry Results & Data Results & Data Vital Signs (Past 12 Hours) Vital Signs Temp Pulse Resp BP Pulse Ox O2 Del Method 07/08/23 15:50 36.7 C 93 H 18 140/81 92 Room Air 07/08/23 12:03 36.3 C L 83 18 141/82 H 91 Room Air 07/08/23 08:00 Room Air 07/08/23 07:29 36.5 C 84 18 157/79 H 100 Nebulizer 07/08/23 07:22 84 18 93 Room Air all noted and reviewed including below
[2023-07-09 05:54] LABS: Creatinine Clr Calc Pharmacy 33.4 ml/min; Est GFR (African American) 46.5 ml/min; Est GFR (Non-African American) 40.1 ml/min
--- NOTE | 2023-07-09 17:46 | Hospitalist Progress Note ---
Date of Service July 09, 2023 Assessment & Plan (1) Acute hypoxemic respiratory failure: Plan: per previous hospitalist notes with addendum: Pt is an 87yoF with PMhx significant for chronic diastolic heart failure (EF 55 to 60%, TTE 2021), mild MR, A-fib/atrial flutter on Eliquis, hypertension, hyperlipidemia, PVD status post surgery, COPD, DM 2 on oral medications, recurrent UTIs (history of ESBL), fibromyalgia, mood disorder, past tobacco abuse presenting with SOB. Acute hypoxic respiratory Failure Decompensated heart Failure and COPD exacerb Secondary to decompensated heart failure history of diastolic dysfunction possibly from rapid A-fib/flutter Supplemental O2 Diuretic Rx Strict I/Os, daily weights, CHF education Updated TTE - LV systolic function is normal. No regional wall motion abnormalities noted. There is severe concentric LVH. EF 60 to 65%. There is mild mitral regurg. Compared with study in January 2022, no significant change. Cardiology consulted Re: CHF, pt follows with [facility] [place] Cardiology Initially IV lasix -> switched to PO lasix Closely monitor I/os, hemodynamic status Currently on RA, but w/ wheezing CXR repeated - and personally reviewed - pulm. vasc. congestion improved cont. guaifenesin, IS, flutter valve Cont. to has wheezes and dyspnea w/ minimal exertion, even though improved - Pulm. med. consulted 4/ off oxygen supplement appears euvolemic continue lasix still has mild wheeze repeat CXR: (+) LL opacity obtain CT Chest transition from Solumedrol to Prednisone 30mg po daily continue rest of the regimen 4/3 improving continue IV Abx 4/ improving continue present regimen PT/OT eval 4/5 Improving Off oxygen supplement Repeat chest x-ray tomorrow COPD exacerbation Pt is still a current smoker + wheezes on exam - cont. home inhalers duoneb- however need close monitoring as pt easily tachycardic, added budesonide Pulmonary medicine consulted - cont. Brovana, Budesonide, Incruse. Give solumed rol, hypertonic saline neb. On discharge, recommend prednisone taper, and hypertonic saline neb. 4/5 management per above UTI Urine Cx posit. for ESBL E.coli Blood Cx x2 negat. for 48 hrs Treated w/ Ertapenem for 7 days Acute Metabolic and Toxic Encephalopathy secondary to illness Hold neuropsychotropic medications until patient mentation back to baseline Delirium precautions. Frequent reorientation, avoid sedating medications as able Mental status seems back to baseline 4/3 somewhat confused today delirium prevention strategies monitor closely 4/5 MS improving monitor A-fib/atrial flutter continue home metoprolol with Eliquis Hypertension uncontrolled initially secondary to complicated UTI Currently wnl Continue home meds hyperlipidemia on statin Rx DM 2 on oral medications, reasonable control as of recent hemoglobin A1c of 7.1 last year mood disorder at baseline Diet: HH/DMII DVT prophylaxis. Eliquis DNR as per patient's prior wishes as per daughter/POA, Ms. Mariana Gomez. Disposition pending PT/OT eval may need SNF (2) Diastolic CHF: (3) Acute UTI: (4) Chronic atrial flutter: Admission and Anticipated Discharge Date Admission Date: June 28, 2023 Subjective Follow-up for pneumonia, etc. Seen with patient's daughter at the bedside Resting in bed, sitting up, in good spirits Answers most simple questions appropriately Occasionally gets confused Easily appropriately oriented States she feels improved today No shortness of breath, less cough No other new symptoms Review of Systems Review of Systems: all noted and negative except for above Physical Exam Physical Exam: General- oriented x2, not in distress, speaks in sentences with no effort or ac cessory muscle use Eyes- anicteric Neck- no JVD Lungs-mild intermittent wheeze bilaterally Mild rales at left base Heart- normal rate, regular rhythm; no murmurs Abdomen- normal bowel sounds, nondistended, soft, nontender Extremities- no pretibial edema, no calf tenderness Neuro- alert, oriented x2; no gross focal neurologic deficits Skin- warm & dry Results & Data Results & Data Vital Signs (Past 12 Hours) Vital Signs Temp Pulse Resp BP Pulse Ox O2 Del Method FiO2 07/09/23 12:55 Room Air 07/09/23 08:21 36.6 C 76 18 167/89 H 94 Room Air 07/09/23 07:43 82 16 Nasal Cannula 96 all noted and reviewed including below
[2023-07-10] MEDS: METOPROLOL SUCC 50MG EXT REL TAB PO STA (04:58)
[2023-07-10] MEDS: METOPROLOL TARTRATE 100 MG TAB PO STA (05:11)
[2023-07-10 05:49] LABS: Creatinine Clr Calc Pharmacy 30.5 ml/min; Est GFR (African American) 42.2 ml/min; Est GFR (Non-African American) 36.4 ml/min
[2023-07-10 09:26] LABS: BUN Creatinine Ratio 40.9 (10-20); Calcium 9.7 mg/dl (8.6-10.3)
[2023-07-10] MEDS: predniSONE 20 MG TAB PO SCH (12:11)
--- NOTE | 2023-07-10 16:24 | Hospitalist Progress Note ---
Date of Service July 10, 2023 Assessment & Plan (1) Acute hypoxemic respiratory failure: Plan: per previous hospitalist notes with addendum: Pt is an 87yoF with PMhx significant for chronic diastolic heart failure (EF 55 to 60%, TTE 2021), mild MR, A-fib/atrial flutter on Eliquis, hypertension, hyperlipidemia, PVD status post surgery, COPD, DM 2 on oral medications, recurrent UTIs (history of ESBL), fibromyalgia, mood disorder, past tobacco abuse presenting with SOB. Acute hypoxic respiratory Failure Left lower lobe pneumonia Decompensated heart Failure and COPD exacerbation Secondary to decompensated heart failure history of diastolic dysfunction possibly from rapid A-fib/flutter Supplemental O2 Diuretic Rx Strict I/Os, daily weights, CHF education Updated TTE - LV systolic function is normal. No regional wall motion ab normalities noted. There is severe concentric LVH. EF 60 to 65%. There is mild mitral regurg. Compared with study in January 2022, no significant change. Cardiology consulted Re: CHF, pt follows with [facility] [place] Cardiology Initially IV lasix -> switched to PO lasix Closely monitor I/os, hemodynamic status Currently on RA, but w/ wheezing CXR repeated - and personally reviewed - pulm. vasc. congestion improved cont. guaifenesin, IS, flutter valve Cont. to has wheezes and dyspnea w/ minimal exertion, even though improved - Pulm. med. consulted / off oxygen supplement appears euvolemic continue lasix still has mild wheeze repeat CXR: (+) LL opacity obtain CT Chest transition from Solumedrol to Prednisone 30mg po daily continue rest of the regimen 4/6 Improving Continue cefepime plus doxycycline Prednisone 20 mg p.o. daily x 2 days, then stop COPD exacerbation Pt is still a current smoker + wheezes on exam - cont. home inhalers duoneb- however need close monitoring as pt easily tachycardic, added budesonide Pulmonary medicine consulted - cont. Brovana, Budesonide, Incruse. Give solumedrol, hypertonic saline neb. On discharge, recommend prednisone taper, and hypertonic saline neb. 4/6 management per above UTI Urine Cx posit. for ESBL E.coli Blood Cx x2 negat. for 48 hrs Treated w/ Ertapenem for 7 days Acute Metabolic and Toxic Encephalopathy secondary to illness Hold neuropsychotropic medications until patient mentation back to baseline Delirium precautions. Frequent reorientation, avoid sedating medications as able Mental status seems back to baseline /6 Improving A-fib/atrial flutter continue home metoprolol with Eliquis Hypertension uncontrolled initially secondary to complicated UTI Currently wnl Continue home meds hyperlipidemia on statin Rx DM 2 on oral medications reasonable control as of recent hemoglobin A1c of 7.1 last year mood disorder at baseline Diet: HH/DMII DVT prophylaxis. Eliquis DNR as per patient's prior wishes as per daughter/POA, Ms. Mariana Gomez. Disposition pending PT/OT eval may need SNF (2) Diastolic CHF: (3) Acute UTI: (4) Chronic atrial flutter: Admission and Anticipated Discharge Date Admission Date: June 28, 2023 Subjective Follow-up for pneumonia, etc. Seen resting in bed, comfortable, not distressed States she feels fine overall Answers most questions appropriately Breathing is improving, less cough No chest pain Appetite is okay No other new symptoms Review of Systems Review of Systems: all noted and negative except for above Physical Exam Physical Exam: General- oriented x 3, not in distress, speaks in sentences with no effort or accessory muscle use Eyes- anicteric Neck- no JVD Lungs-mild rales on the left lower base, clear on the right Heart- normal rate, regular rhythm; no murmurs Abdomen- normal bowel sounds, nondistended, soft, no tenderness Extremities- no pretibial edema, no calf tenderness Neuro- alert, oriented x 3; no gross focal neurologic deficits Skin- warm & dry Results & Data Results & Data Vital Signs (Past 12 Hours) Vital Signs Temp Pulse Pulse Resp BP Pulse Ox O2 Del Method 07/10/23 15:48 36.7 C 89 18 185/89 H 93 Room Air 07/10/23 13:59 118 H 07/10/23 11:23 36.7 C 91 H 18 164/85 H 96 Room Air 07/10/23 09:02 36.5 C 98 H 16 179/97 H 95 Room Air 07/10/23 08:15 Room Air 07/10/23 07:10 78 16 98 Room Air 07/10/23 06:01 95 H 07/10/23 05:01 36.8 C 84 20 164/118 H 97 Room Air all noted and reviewed including below
[2023-07-10] MEDS: amLODIPine BESYLATE 5 MG TAB PO ONE (17:21)
[2023-07-10] MEDS: METOPROLOL TARTRATE 100 MG TAB PO SCH (17:21)
[2023-07-11] MEDS: amLODIPine BESYLATE 5 MG TAB PO SCH (06:07)
[2023-07-11] MEDS ORDERED: amLODIPine BESYLATE 5 MG TAB PO SCH (09:00)
--- NOTE | 2023-07-11 15:26 | Hospitalist Progress Note ---
Date of Service July 11, 2023 Assessment & Plan (1) Acute hypoxemic respiratory failure: Plan: per previous hospitalist notes with addendum: Pt is an 87yoF with PMhx significant for chronic diastolic heart failure (EF 55 to 60%, TTE 2021), mild MR, A-fib/atrial flutter on Eliquis, hypertension, hyperlipidemia, PVD status post surgery, COPD, DM 2 on oral medications, recurrent UTIs (history of ESBL), fibromyalgia, mood disorder, past tobacco abuse presenting with SOB. Acute hypoxic respiratory Failure Left lower lobe pneumonia Decompensated heart Failure and COPD exacerbation Secondary to decompensated heart failure history of diastolic dysfunction possibly from rapid A-fib/flutter Supplemental O2 Diuretic Rx Strict I/Os, daily weights, CHF education Updated TTE - LV systolic function is normal. No regional wall motion ab normalities noted. There is severe concentric LVH. EF 60 to 65%. There is mild mitral regurg. Compared with study in January 2022, no significant change. Cardiology consulted Re: CHF, [place] [facility] [place] Initially IV lasix -> switched to PO lasix Closely monitor I/os, hemodynamic status Currently on RA, but w/ wheezing CXR repeated - and personally reviewed - pulm. vasc. congestion improved cont. guaifenesin, IS, flutter valve Cont. to has wheezes and dyspnea w/ minimal exertion, even though improved - Pulm. med. consulted 07/05 off oxygen supplement appears euvolemic continue lasix still has mild wheeze repeat CXR: (+) LL opacity obtain CT Chest transition from Solumedrol to Prednisone 30mg po daily continue rest of the regimen / Improving Continue cefepime plus doxycycline Prednisone 20 mg p.o. daily x 2 days, then stop 07/10 Continues to improve On room air Continue cefepime plus doxycycline day number 6 out of 7 Transition to prednisone 10 mg p.o. daily x 2 days, then stop COPD exacerbation Pt is still a current smoker + wheezes on exam - cont. home inhalers duoneb- however need close monitoring as pt easily tachycardic, added budesonide Pulmonary medicine consulted - cont. Brovana, Budesonide, Incruse. Give solumedrol, hypertonic saline neb. On discharge, recommend prednisone taper, and hypertonic saline neb. 07/10 management per above UTI Urine Cx posit. for ESBL E.coli Blood Cx x2 negat. for 48 hrs Treated w/ Ertapenem for 7 days Acute Metabolic and Toxic Encephalopathy secondary to illness Hold neuropsychotropic medications until patient mentation back to baseline Delirium precautions. Frequent reorientation, avoid sedating medications as able Mental status seems back to baseline 07/10 Improving A-fib/atrial flutter continue home metoprolol with Eliquis Hypertension Amlodipine 5 mg p.o. daily added Monitor closely next hyperlipidemia on statin Rx DM 2 on oral medications reasonable control as of recent hemoglobin A1c of 7.1 last year mood disorder at baseline DVT prophylaxis. Eliquis DNR as per patient's prior wishes as per daughter/POA, Ms. Mariana Gomez. Disposition Transition to SNF tomorrow (2) Diastolic CHF: (3) Acute UTI: (4) Chronic atrial flutter: Admission and Anticipated Discharge Date Admission Date: June 28, 2023 Subjective Follow-up for pneumonia, etc. Resting in bed, sitting up, not in distress Answering most questions appropriately States she feels fine overall No shortness of breath, minimal, intermittent cough No other new symptom Review of Systems 2 Review of Systems: all noted and negative except for above Physical Exam Physical Exam: General- oriented x 3, not in distress, speaks in sentences with no effort or accessory muscle use Eyes- anicteric Neck- no JVD Lungs- clear breath sounds, no crackles or wheezing Heart- normal rate, regular rhythm; no murmurs Abdomen- normal bowel sounds, nondistended, soft, no tenderness Extremities- no pretibial edema, no calf tenderness Neuro- alert, oriented x 3; no gross focal neurologic deficits Skin- warm & dry Results & Data Results & Data Vital Signs (Past 12 Hours) Vital Signs Temp Pulse Pulse Resp BP Pulse Ox O2 Del Method 07/11/23 11:35 36.5 C 59 L 18 149/90 H 95 Room Air 07/11/23 08:13 36.4 C L 78 18 184/100 H 95 Room Air 07/11/23 08:00 Room Air 07/11/23 07:25 86 07/11/23 06:53 73 18 96 Room Air 07/11/23 05:39 198/103 H 07/11/23 04:39 36.8 C 86 20 172/96 H 92 Room Air all noted and reviewed including below
[2023-07-12] MEDS: predniSONE 10 MG TABLET PO SCH (10:35)
[2023-07-12 10:48] LABS: BUN Creatinine Ratio 37.9 (10-20); Calcium 9.2 mg/dl (8.6-10.3); Creatinine Clr Calc Pharmacy 28.9 ml/min; Est GFR (African American) 39.3 ml/min; Est GFR (Non-African American) 33.9 ml/min
[2023-07-12] MEDS: SODIUM CHLORIDE 0.9% 1,000 ML IV SCH (13:08)
--- NOTE | 2023-07-12 17:38 | Hospitalist Progress Note ---
Date of Service July 12, 2023 Assessment & Plan (1) Acute hypoxemic respiratory failure: Plan: per previous hospitalist notes with addendum: Pt is an 87yoF with PMhx significant for chronic diastolic heart failure (EF 55 to 60%, TTE 2021), mild MR, A-fib/atrial flutter on Eliquis, hypertension, hyperlipidemia, PVD status post surgery, COPD, DM 2 on oral medications, recurrent UTIs (history of ESBL), fibromyalgia, mood disorder, past tobacco abuse presenting with SOB. Acute hypoxic respiratory Failure Left lower lobe pneumonia Decompensated heart Failure and COPD exacerbation Secondary to decompensated heart failure history of diastolic dysfunction possibly from rapid A-fib/flutter Supplemental O2 Diuretic Rx Strict I/Os, daily weights, CHF education Updated TTE - LV systolic function is normal. No regional wall motion ab normalities noted. There is severe concentric LVH. EF 60 to 65%. There is mild mitral regurg. Compared with study in January 2022, no significant change. Cardiology consulted Re: CHF, [place] [facility] [place] Initially IV lasix -> switched to PO lasix Closely monitor I/os, hemodynamic status Currently on RA, but w/ wheezing CXR repeated - and personally reviewed - pulm. vasc. congestion improved cont. guaifenesin, IS, flutter valve Cont. to has wheezes and dyspnea w/ minimal exertion, even though improved - Pulm. med. consulted 07/05 off oxygen supplement appears euvolemic continue lasix still has mild wheeze repeat CXR: (+) LL opacity obtain CT Chest transition from Solumedrol to Prednisone 30mg po daily continue rest of the regimen 07/09 Improving Continue cefepime plus doxycycline Prednisone 20 mg p.o. daily x 2 days, then stop 07/10 Continues to improve On room air Continue cefepime plus doxycycline day number 6 out of 7 Transition to prednisone 10 mg p.o. daily x 2 days, then stop 07/11 Improved Last day of antibiotics today Last day of prednisone today Creatinine 1.4 Hold Lasix Gentle IV fluids Repeat tomorrow COPD exacerbation Pt is still a current smoker + wheezes on exam - cont. home inhalers duoneb- however need close monitoring as pt easily tachycardic, added budesonide Pulmonary medicine consulted - cont. Brovana, Budesonide, Incruse. Give solumedrol, hypertonic saline neb. On discharge, recommend prednisone taper, and hypertonic saline neb. 07/11 management per above UTI Urine Cx posit. for ESBL E.coli Blood Cx x2 negat. for 48 hrs Treated w/ Ertapenem for 7 days Acute Metabolic and Toxic Encephalopathy secondary to illness Hold neuropsychotropic medications until patient mentation back to baseline Delirium precautions. Frequent reorientation, avoid sedating medications as able Mental status seems back to baseline 07/11 Improved A-fib/atrial flutter continue home metoprolol with Eliquis Hypertension Amlodipine 5 mg p.o. daily added Monitor closely next hyperlipidemia on statin Rx DM 2 on oral medications reasonable control as of recent hemoglobin A1c of 7.1 last year mood disorder at baseline DVT prophylaxis. Eliquis DNR as per patient's prior wishes as per daughter/POA, Ms. Mariana Gomez. Disposition Transition to SNF tomorrow (2) Diastolic CHF: (3) Acute UTI: (4) Chronic atrial flutter: Admission and Anticipated Discharge Date Admission Date: June 28, 2023 Subjective ff up for pneumonia, etc. Seen resting in bed, comfortable, not in distress Answers most questions appropriately States she feels fine overall Breathing is okay, no cough No other new symptoms Review of Systems Review of Systems: all noted and negative except for above Physical Exam Physical Exam: General- oriented x2, not in distress, speaks in sentences with no effort or accessory muscle use Eyes- anicteric Neck- no JVD Lungs- clear breath sounds bilaterally, no crackles or wheeze Heart- normal rate, regular rhythm; no murmurs Abdomen- normal bowel sounds, nondistended, soft, no tenderness Extremities- no pretibial edema, no calf tenderness Neuro- alert, oriented x 2; no gross focal neurologic deficits Skin- warm & dry Results & Data Results & Data Vital Signs (Past 12 Hours) Vital Signs Temp Pulse Pulse Resp BP Pulse Ox O2 Del Method 07/12/23 16:05 102 H 07/12/23 15:48 36.6 C 89 18 169/73 H 92 Room Air 07/12/23 11:40 36.8 C 81 20 119/63 96 Room Air 07/12/23 11:37 Room Air 07/12/23 07:57 36.4 C L 86 18 151/89 H 95 Room Air 07/12/23 07:10 82 17 92 Room Air FiO2 07/12/23 16:05 07/12/23 15:48 07/12/23 11:40 07/12/23 11:37 07/12/23 07:57 07/12/23 07:10 21 all noted and reviewed including below
[2023-07-12] MEDS: CEFEPIME 1,000 MG in SYRINGE 0 ML IV SCH (19:39)
[2023-07-13 04:45] LABS: Calcium 8.8 mg/dl (8.6-10.3); Creatinine Clr Calc Pharmacy 30.6 ml/min; Est GFR (African American) 42.2 ml/min; Est GFR (Non-African American) 36.4 ml/min; Potassium 3.8 mmol/L (3.5-5.1)
--- NOTE | 2023-07-13 15:12 | Hospitalist Progress Note ---
Date of Service July 13, 2023 Assessment & Plan (1) Acute hypoxemic respiratory failure: Plan: per previous hospitalist notes with addendum: Pt is an 87yoF with PMhx significant for chronic diastolic heart failure (EF 55 to 60%, TTE 2021), mild MR, A-fib/atrial flutter on Eliquis, hypertension, hyperlipidemia, PVD status post surgery, COPD, DM 2 on oral medications, recurrent UTIs (history of ESBL), fibromyalgia, mood disorder, past tobacco abuse presenting with SOB. Acute hypoxic respiratory Failure Left lower lobe pneumonia Decompensated heart Failure and COPD exacerbation Secondary to decompensated heart failure history of diastolic dysfunction possibly from rapid A-fib/flutter Updated TTE - LV systolic function is normal. No regional wall motion abnormalities noted. There is severe concentric LVH. EF 60 to 65%. There is mild mitral regurg. Compared with study in January 2022, no significant change. Cardiology consulted Re: CHF, pt follows with [facility] [place] Cardiology Initially IV lasix -> switched to PO lasix Cont. to has wheezes and dyspnea w/ minimal exertion, even though improved - Pulm. med. consulted CT chest: Groundglass opacities and volume loss in the left lower lobe may represent atelectasis with or without superimposed pneumonia. Bronchial wall thickening is seen compatible with infectious/inflammatory airways disease. Placed on cefepime plus doxycycline x 7 days Slow prednisone taper Patient gradually improved Weaned of oxygen supplement COPD exacerbation Pt is still a current smoker Resolved management per above UTI Urine Cx posit. for ESBL E.coli Blood Cx x2 negat. for 48 hrs Treated w/ Ertapenem for 7 days Acute Metabolic and Toxic Encephalopathy secondary to illness Continues to resolve A-fib/atrial flutter continue home metoprolol with Eliquis Hypertension Amlodipine 5 mg p.o. daily added Monitor closely Hyperlipidemia on statin Rx DM 2 on oral medications reasonable control as of recent hemoglobin A1c of 7.1 last year mood disorder at baseline DVT prophylaxis. On Eliquis DNR as per patient's prior wishes as per daughter/POA, Ms. Mariana Gomez. Disposition Transition to SNF when accepted (2) Diastolic CHF: (3) Acute UTI: (4) Chronic atrial flutter: Admission and Anticipated Discharge Date Admission Date: June 28, 2023 Subjective Follow-up follow-up for pneumonia, etc. Seen sitting up in bedside chair, comfortable, not in distress States she feels fine overall No shortness of breath, cough No other new symptoms Review of Systems Review of Systems: all noted and negative except for above Physical Exam Physical Exam: General- oriented x 2, not in distress, speaks in sentences with no effort or accessory muscle use Eyes- anicteric Neck- no JVD Lungs- clear breath sounds bilaterally, no rales/wheezes Heart- normal rate, regular rhythm; no murmurs Abdomen- normal bowel sounds, nondistended, soft, nontender Extremities- no pretibial edema, no calf tenderness Neuro- alert, oriented x 2; no gross focal neurologic deficits Skin- warm & dry Results & Data Results & Data Vital Signs (Past 12 Hours) Vital Signs Temp Pulse Pulse Resp BP BP Pulse Ox 07/13/23 08:37 72 07/13/23 08:09 35.8 C L 95 H 16 160/86 H 99 07/13/23 07:17 74 18 93 07/13/23 03:11 36.5 C 70 18 140/85 95 O2 Del Method 07/13/23 08:37 07/13/23 08:09 Room Air 07/13/23 07:17 Room Air 07/13/23 03:11 Room Air all noted and reviewed including below
[2023-07-14 07:54] VITALS: PULSE 87; RESP 16; TEMP 97.9; O2SAT 96
[2023-07-14 11:00] VITALS: BP 145/80
--- NOTE | 2023-07-14 14:14 | Discharge Summary ---
Date of Service July 14, 2023 Admission HPI Per Admitting Provider History obtained from patient, family, and records. Limited history from patient secondary to confusion. Medical history significant for chronic diastolic heart failure (EF 55 to 60%, TTE 2021), mild MR, A-fib/atrial flutter on Eliquis, hypertension, hyperlipidemia, PVD status post surgery, COPD, DM 2 on oral medications, recurrent UTIs (history of ESBL), fibromyalgia, mood disorder, past tobacco abuse. Last confinement December 2022 for syncope secondary to A-fib with RVR. Patient noted to have worsening congestion since last week. Patient denies cough or chest pain symptoms. Not sure about fluid retention. Foul-smelling urine noted by personal care facility RN. Patient denies headache/abdominal/flank pain/hematuria symptoms. Patient confused when she has a urine infection as per daughter. Patient noted to be in rapid A-fib during stay at the ER. Lowest O2 sats 80s on room air. IV Lopressor, Solu-Medrol, and Ertapenem administered at the ER. Medical History as above Surgical History : Renal artery stent placement, RONNELL, oophorectomy, bladder/urethra procedure Family History : Breast cancer, stroke Personal/Social history : Past tobacco abuse, no EtOH intake, personal senior care resident Admission Exam Per Admitting Provider GENERAL: Comfortable, disoriented, morbidly obese, audible expiratory wheezes, no respiratory distress SKIN: Normal color, warm HEENT: [place] palpebral conjunctivae, no ptosis, dry buccal mucosa, nasal cannula in place NECK : Supple, no tenderness CHEST : Decreased breath sounds, scattered expiratory wheezes, no tenderness HEART : Irregular, no obvious murmurs ABDOMEN: Some distention, nontender EXTREMITIES : Minimal LE swelling, no LE tenderness, no other conspicuous deformities noted NEUROLOGIC : Disoriented, no facial asymmetry, gait and stance not assessed Principal Diagnosis Acute hypoxic respiratory Failure Left lower lobe pneumonia Decompensated heart Failure and COPD exacerbation COPD exacerbation Discharge Exam Constitutional: WD/WN, vitals as above, NAD, sitting up in bed, pleasant, conversing easily Respiratory: normal respiratory effort, lungs clear to auscultation, no wheeze, rales, rhonchi. Normal insp/exp effort, no accessory muscle use Cardiovascular: RRR, no murmur, no edema Vessels: no JVD or carotid bruit Chest: normal inspection of chest Abdomen: normal bowel sounds, soft, nontender, no hepatosplenomegaly Musculoskeletal: no cyanosis or clubbing, extremities motor strength 5/5 Skin: no rashes, warm and dry normal turgor Neurologic: PERRL, EOMI, accommodation nl, no face palsy, no dysarthria CN's II- XI intact bilaterally and moves all extremities Psychiatric: A+Ox2, euthymic affect Discharge Data Allergies Allergy/AdvReac Type Severity Reaction Status Date / Time SOLANGE Inhibitors Allergy Unknown ON [facility] Verified 06/28/23 20:17 MED LIST alendronate sodium Allergy Unknown ON [facility] Verified 06/28/23 20:17 MED LIST ARB-Angiotensin Receptor Allergy Unknown Unknown Verified 06/28/23 20:17 Antagonist cisapride Allergy Unknown UNKNOWN Verified 06/28/23 20:17 diazepam Allergy Unknown ON [facility] Verified 06/28/23 20:17 MED LIST nabumetone Allergy Unknown ON [facility] Verified 06/28/23 20:17 MED LIST NSAIDS (Non-Steroidal Allergy Unknown ON [facility] Verified 06/28/23 20:17 Anti-Inflamma MED LIST phenazopyridine Allergy Unknown ON [facility] Verified 06/28/23 20:17 MED LIST Sulfa (Sulfonamide Allergy Unknown ON [facility] Verified 06/28/23 20:17 Antibiotics) MED LIST sulindac Allergy Unknown ON [facility] Verified 06/28/23 20:17 MED LIST duloxetine AdvReac Severe Diarrhea Verified 06/28/23 20:17 Consultations 06/28/23 20:47 ED Decision to Admit Stat 06/29/23 01:26 Consult Cardiology Routine 07/02/23 13:40 Consult Pulmonology Routine Ordered Studies 07/06/23 12:41 CT chest diagnostic wo con Urgent Hospital Course (1) Acute hypoxemic respiratory failure: Pt is an 87yoF with PMhx significant for chronic diastolic heart failure (EF 55 to 60%, TTE 2021), mild MR, A-fib/atrial flutter on Eliquis, hypertension, hyperlipidemia, PVD status post surgery, COPD, DM 2 on oral medications, recurrent UTIs (history of ESBL), fibromyalgia, mood disorder, past tobacco abuse presenting with SOB. Acute hypoxic respiratory Failure Left lower lobe pneumonia Decompensated heart Failure and COPD exacerbation Secondary to decompensated heart failure history of diastolic dysfunction possibly from rapid A-fib/flutter DAVIDSON on 06/29/2023- LV systolic function is normal. No regional wall motion abnormalities noted. There is severe concentric LVH. EF 60 to 65%. There is mild mitral regurg. Compared with study in January 2022, no significant change. Cardiology consulted Re: CHF, [place] [facility] [place] Initially IV lasix -> switched to PO lasix Cont. to has wheezes and dyspnea w/ minimal exertion, even though improved - Pulm. med. consulted CT chest: Groundglass opacities and volume loss in the left lower lobe may represent atelectasis with or without superimposed pneumonia. Bronchial wall thickening is seen compatible with infectious/inflammatory airways disease. During the hospitalization, patient was treated with IV Lasix, antibiotics and breathing treatment Cardiology and pulmonology were consulted for comanagement. At the time of the discharge, patient was saturating well on room air UTI Urine Cx posit. for ESBL E.coli Blood Cx x2 negat. for 5 days Treated w/ Ertapenem for 7 days Acute Metabolic and Toxic Encephalopathy Resolved A-fib/atrial flutter continue home metoprolol with Eliquis Hypertension Amlodipine 5 mg p.o. daily added Monitor closely Hyperlipidemia on statin Rx DM 2 on oral medications reasonable control as of recent hemoglobin A1c of 7.1 last year mood disorder at baseline DVT prophylaxis. On Eliquis DNR as per patient's prior wishes as per daughter/POA, Ms. Mariana Gomez. Patient was discharged to SNF([facility]). Please note the above document was generated using voice recognition software. It may contain grammatical, syntax or spelling errors. Any formal questions or concerns about the content, text or information contained within the body of this dictation should be directly addressed to the provider for clarification (2) Diastolic CHF: (3) Acute UTI: (4) Chronic atrial flutter: Total Time Total Time Spent Total Time Spent (In Minutes): 45 Discharge Plan Discharge Items Patient Disposition: Transfer Assisted Fac Reason For Visit: RESP FAILURE Discharge Diagnosis: Acute hypoxic respiratory failure Left lower lobe pneumonia COPD exacerbation Acute on chronic CHF exacerbation Activity: As commented below Activity Comment: Fall precautions, PT and OT Non-emergency contact: Primary Care Provider Call non-emergency contact if: you have any medication questions, your symptoms worsen, your pain is not controlled, your pain is worsening, your pain is unusual for you, your pain is concerning for you and you have a fever Follow-up/Referrals: Arsalan Pisano DO [Primary Care Provider] - Diet: Carb Consistent or DM2 and Heart Healthy Addtl Attending Provider Instructions: Repeat basic metabolic profile in 2 to 3 days to reevaluate renal function. Monitor renal function closely while on diuretics. Please refer to accompanying hospital discharge summary for further details. Pending Studies at Discharge: Yes Studies:: Repeat basic metabolic profile in 2 to 3 days to reevaluate renal function. Monitor renal function closely while on diuretics. Please refer to accompanying hospital discharge summary for further details. Stand-Alone Forms: My [facility] Skilled Items Patient informed of condition?: Yes DNR: Yes Discharge Level of Care: Skilled Communicable Disease: No Discharge Prognosis: Stable Lines: None Urinary Catheter: No Medications and DC Order Prescriptions: New amlodipine [Norvasc] 5 mg Tablet 5 mg PO QAM 30 Days Qty: 30 0RF potassium chloride 20 mEq Tablet,Er Particles/Crystals 20 meq PO BID 14 Days Qty: 28 0RF Advanced Probiotic 625 mg (10 billion cell) Capsule 1 cap PO DAILY 30 Days Qty: 30 0RF Continued atorvastatin [Lipitor] 10 mg tablet 10 mg PO QAM Qty: 90 3RF albuterol sulfate 90 mcg/actuation HFA aerosol inhaler 1 inh inhalation QID PRN (Reason: shortness of breath or wheezing) 90 Days Qty: 20.1 4RF calcitriol 0.25 mcg capsule 0.25 mcg PO QAM Qty: 90 3RF venlafaxine 150 mg capsule,extended release 24hr 150 mg PO QAM Qty: 90 3RF spironolactone 50 mg tablet 50 mg PO DAILY Qty: 90 3RF furosemide [Lasix] 40 mg tablet 40 mg PO [id number] Rx Instructions: 40 mg orally every mon, wed, fri; docusate sodium [Stool Softener] 100 mg Capsule 200 mg PO BIDM acetaminophen [Tylenol] 325 mg Tablet 650 mg PO Q6H MDD 3 GRAMS/24 HOURS PRN (Reason: PAIN/FEVER) Incruse Ellipta 62.5 mcg/actuation Blister With Device 1 inh inhalation QAM Qty: 30 0RF metformin 500 mg tablet extended release 24 hr 500 mg PO QAM fluticasone furoate-vilanterol [Breo Ellipta] 100-25 mcg/dose blister with device 1 ea inhalation QAM Mucinex DM 30-600 mg Tablet Extended Release 12 Hr 1 tab PO Q12H PRN (Reason: Congestion) metoprolol tartrate 100 mg tablet 100 mg PO BIDM Eliquis 5 mg tablet 5 mg PO BIDM Discontinued amitriptyline 50 mg tablet 50 mg PO HS Qty: 90 3RF Discharge Orders: Discharge Order (Routine); Ordered 07/14/23 Ordered By: He Ramirez/Other Patient Handouts: Managing Type 2 Diabetes Admission Data Admit Date/Time: 06/28/23 21:50 Attending Provider: He Ware Admit Provider: Antolin Baker Primary Care Provider: Arsalan Pisano Other Providers: Antolin Baker; Jhon Amaro; Ovidio Ross; Ti Daugherty; Dorian Young; Doug Casanova; Biju Lieberman Jr; Alexei Murry; Veronique Abel; Sussy Gonzalez; Hi Vee; Hi Russell; Denis Lee; Yeimy Esquivel; Arsalan Tobar; Dede Lemon; Alexx Lozano; Sylvain Carroll; Dylon Lynne; Eze Martinez; Mack Harrell; [place],[facility] Other Interventions: Discharge Summary Assessment (RN) Last Done: 07/14/23 10:55
--- NOTE | 2023-07-16 06:04 | Electrocardiogram Report ---
Test Reason : Blood Pressure : / mmHG Vent. Rate : 086 BPM Atrial Rate : 107 BPM P-R Int : 000 ms QRS Dur : 082 ms QT Int : 372 ms P-R-T Axes : 000 -33 188 degrees QTc Int : 445 ms Atrial fibrillation Left axis deviation Voltage criteria for left ventricular hypertrophy Abnormal ECG When compared with ECG of 28-JUN-2023 18:32, Vent. rate has decreased BY [address] less depressed in Inferior leads Confirmed by Alexei Murry ([id number]) on 07/16/2023 6:04:25 AM Referred By: REFERRED SELF Confirmed By:Alexei Murry
== END 2023-07-14 16:49 | disposition home health service (06) | DRG 291 ==
LOC: ED 18:19 → 4W 21:50 → SUATTDRO 21:50 → 4W 23:59 → 2W 07-04 18:33
DX: Z79.01 Long term (current) use of anticoagulants; I48.21 Permanent atrial fibrillation; I50.32 Chronic diastolic (congestive) heart failure; J18.9 Pneumonia, unspecified organism; N18.30 Chronic kidney disease, stage 3 unspecified; N39.0 Urinary tract infection, site not specified; I44.39 Other atrioventricular block; I50.33 Acute on chronic diastolic (congestive) heart failure; Z88.6 Allergy status to analgesic agent; J96.01 Acute respiratory failure with hypoxia; Z79.84 Long term (current) use of oral hypoglycemic drugs; E11.9 Type 2 diabetes mellitus without complications; E78.5 Hyperlipidemia, unspecified; J44.1 Chronic obstructive pulmonary disease with (acute) exacerbation; Z87.891 Personal history of nicotine dependence; Z88.2 Allergy status to sulfonamides; G93.41 Metabolic encephalopathy; I13.0 Hypertensive heart and chronic kidney disease with heart failure and stage 1 through stage 4 chronic kidney disease, or unspecified chronic kidney disease; I48.92 Unspecified atrial flutter; G92.8 Other toxic encephalopathy; B96.20 Unspecified Escherichia coli [E. coli] as the cause of diseases classified elsewhere

== ENCOUNTER 2023-10-28 08:49 | Inpatient (IN) ==
--- NOTE | 2023-10-28 08:55 | Emergency Department Note ---
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 GRAMS/24 HOURS PRN (Reason: PAIN/FEVER) Incruse Ellipta 62.5 mcg/actuation Blister With Device 1 inh inhalation QAM Qty: 30 0RF metformin 500 mg tablet extended release 24 hr 500 mg PO QAM fluticasone furoate-vilanterol [Breo Ellipta] 100-25 mcg/dose blister with device 1 ea inhalation QAM Mucinex DM 30-600 mg Tablet Extended Release 12 Hr 1 tab PO Q12H PRN (Reason: Congestion) spironolactone 50 mg tablet 100 mg PO DAILY metoprolol tartrate 100 mg tablet 100 mg PO BIDM Eliquis 5 mg tablet 5 mg PO BIDM Referrals Referrals: Arsalan Pisano DO [Outside Practitioners] - Discharge Problem: CHI (closed head injury) Qualifiers: Encounter type: initial encounter Qualified Code(s): S09.90XA - Unspecified injury of head, initial encounter Traumatic hematoma of forehead Qualifiers: Encounter type: initial encounter Qualified Code(s): S00.83XA - Contusion of other part of head, initial encounter
[2023-10-28 09:15] LABS: Basophils # (auto) 0.05 K/uL (0.00-0.20); Basophils % (auto) 0.7 %; Eosinophils # (auto) 0.23 K/uL (0.00-0.50); Hematocrit (blood only) 47.1 % (37.0-47.0); Hemoglobin 15.2 g/dl (12.0-16.0); Immature Granulocytes # (auto) 0.05 K/uL (0.01-0.20); Immature Granulocytes % (auto) 0.7 %; Lymphocytes # (auto) 0.98 K/uL (1.20-3.40); Lymphocytes % (auto) 12.9 %; Mean Corpuscular Hemoglobin 31.3 pg (25.0-34.0); Mean Corpuscular Hgb Conc 32.3 g/dL (32.0-36.0); Mean Corpuscular Volume 96.9 fL (80.0-100.0); Mean Platelet Volume 9.4 fL (9.4-12.4); Monocytes # (auto) 1.01 K/uL (0.11-0.59); Monocytes % (auto) 13.3 %; Neutrophils # (auto) 5.29 K/uL (1.40-6.50); Neutrophils % (auto) 69.4 %; Platelet Count 260 K/uL (130-400); RDW Coefficient of Variation 13.5 % (11.5-14.5); RDW Standard Deviation 48.4 fL (36.4-46.3); Red Blood Count 4.86 M/uL (4.20-5.40); White Blood Count 7.61 K/ul (4.8-10.8)
[2023-10-28 09:35] LABS: Alanine Aminotransferase 9 U/L (7-52); Albumin Globulin Ratio 1.2 (0.9-2); Albumin Level 4.1 gm/dl (3.4-5.0); Alkaline Phosphatase 125 U/L (34-104); Anion Gap 9 (3-11); Aspartate Aminotransferase 12 U/L (13-39); BUN Creatinine Ratio 21.7 (10-20); Bilirubin,Total 0.4 mg/dl (0.2-1.0); Blood Urea Nitrogen 26 mg/dl (6-23); Carbon Dioxide 26 mmol/L (21-32); Chloride 101 mmol/L (98-107); Creatine Kinase 44 U/L (26-192); Est GFR (African American) 47.1 ml/min; Est GFR (Non-African American) 40.6 ml/min; Globulin 3.5 gm/dl (2.5-4.0); Glucose 139 mg/dl (70-99(Fasting)); Potassium 4.5 mmol/L (3.5-5.1); Sodium 136 mmol/L (136-145); Total Protein 7.6 gm/dl (6.0-8.3)
--- NOTE | 2023-10-28 09:40 | XRay Report ---
XR ankle LT 2V CLINICAL HISTORY: swelling/fall TECHNIQUE: 2 views of the left ankle were obtained. Comparison: None available at the time of this dictation. FINDINGS: No fractures are present. A well-corticated medial malleolus bony fragment is likely chronic. Degener ative changes are seen. Soft tissue swelling is seen about the ankle. IMPRESSION: Soft tissue swelling is seen without evidence of underlying bony abnormality. ACT 112: Negative or not required by law. Electronically signed by: Wong Ramos M.D. 10/28/2023 9:39 AM
[2023-10-28 09:41] LABS: Troponin I High Sensitivity 14.8 pg/ml (0-14)
--- NOTE | 2023-10-28 09:41 | XRay Report ---
XR chest 1V portable HISTORY: Fall. coarse sounds, h/o COPD COMPARISON: Chest 07/06/2023. FINDINGS: No pneumothorax. No pleural effusions. A few small left basilar linear densities have impro rico and favor subsegmental atelectasis. No new focal lung consolidations to suggest a pneumonia. No e vidence for pulmonary edema. The heart remains mildly enlarged. There are calcifications within the a ortic knob. Old left-sided rib fractures again noted. No acute fractures. IMPRESSION: Stable cardiomegaly. Otherwise, no acute process within the chest. ACT 112: Negative or not required by law. Electronically signed by: Steven Cuba M.D. 10/28/2023 9:40 AM
--- NOTE | 2023-10-28 09:48 | XRay Report ---
XR shoulder LT min 2V routine CLINICAL HISTORY: possible broken Left Shoulder TECHNIQUE: 3 views of the left shoulder were obtained. Comparison: Comparison is made to left humerus radiographs 05/16/2016 FINDINGS: In the internal rotation image only, there is a linear lucency in the acromion. Joint spaces are well -preserved. The overlying soft tissues are unremarkable. The visualized portions of the lungs are opal ar. IMPRESSION: There is possibly be a nondisplaced fracture of the acromion, which is visualized on the internal rot ation image only. If clinical concern remains, CT can be performed. ACT 112: Negative or not required by law. Electronically signed by: Wong Ramos M.D. 10/28/2023 9:46 AM
[2023-10-28] MEDS: SODIUM CHLORIDE 0.9% 500 ML IV ONE (09:49)
--- NOTE | 2023-10-28 09:51 | CT Scan Report ---
HEAD CT NONCONTRAST CT DOSE: HISTORY: Trauma TECHNIQUE: Multiaxial CT images of the head were performed without the use of intravenous contrast. A utomated exposure control was utilized for this study. A dose lowering technique was utilized adheri ng to the principles of ALARA. Comparison: Head CT 12/19/2022. Findings: The paranasal sinuses and mastoid air cells are clear. The calvarium and skull base are int act. There is no mass, hematoma, midline shift, acute infarct. White matter hypodensity is nonspecifi c but suggestive of microvascular ischemic change. The ventricles and sulci demonstrate mild age-rela lawanda involutional changes. Mild motion artifact. Left frontal scalp swelling/hematoma. Impression: 1. No acute infarct or intracranial hemorrhage. 2. Left frontal scalp injury. ACT 112: Negative or not required by law. Electronically signed by: Steven Cuba M.D. 10/28/2023 9:49 AM
[2023-10-28 09:54] LABS: Base Excess VBG 1.6 mEq/L; HCO3 VBG 28 mmol/L; Oxygen Saturation VBG < 60.0 %; PCO2 VBG 51 mmHg (38-50); PO2 VBG < 20 mmHg; pH VBG 7.35 (7.36-7.41)
--- NOTE | 2023-10-28 09:56 | CT Scan Report ---
CT cervical spine wo con CLINICAL HISTORY: Trauma TECHNIQUE: Multidetector row helical CT of the cervical spine was performed without administration of intravenous contrast. Coronal and sagittal reformations were obtained. Automated dose lowering techn iques and/or adjustment according to patient size were utilized for this exam. Comparison: Comparison is made to CT chest 12/18/2022 FINDINGS: No acute fractures are seen. Degenerative changes are seen in the visualized spine. The alignment is normal. Soft tissues are unremarkable. IMPRESSION: Degenerative changes without evidence of acute bony injury. ACT 112: Negative or not required by law. Electronically signed by: Wong Ramos M.D. 10/28/2023 9:54 AM
[2023-10-28] MEDS: LEVALBUTEROL 1.25 MG/3 ML NEB NEB STA (10:06)
[2023-10-28] MEDS: METOPROLOL TARTRATE 1 MG/ML VIAL IV STA (10:06)
[2023-10-28] MEDS: methylPREDNISolone 125 MG/2 ML VIAL IV STA (10:06)
[2023-10-28 10:36] LABS: Adenovirus PCR Not Detected (NotDetected); Bordetella parapertussis PCR Not Detected (NotDetected); Bordetella pertussis PCR Not Detected (NotDetected); Chlamydia pneumoniae PCR Not Detected (NotDetected); Coronavirus 229E PCR Not Detected (NotDetected); Coronavirus HKU1 PCR Not Detected (NotDetected); Coronavirus NL63 PCR Not Detected (NotDetected); Coronavirus OC43PCR Not Detected (NotDetected); Human Metapneumovirus PCR Not Detected (NotDetected); Influenza A PCR Not Detected (NotDetected); Influenza B PCR Not Detected (NotDetected); Mycoplasma pneumoniae PCR Not Detected (NotDetected); Parainfluenza Virus 1 PCR Not Detected (NotDetected); Parainfluenza Virus 2 PCR Not Detected (NotDetected); Parainfluenza Virus 3 PCR Not Detected (NotDetected); Parainfluenza Virus 4 PCR Not Detected (NotDetected); Respiratory Syncytial VirusPCR Not Detected (NotDetected); Rhinovirus/Enterovirus PCR Not Detected (NotDetected)
[2023-10-28 10:45] LABS: Coronavirus CoV-2 (COVID19)PCR DETECTED (NotDetected)
--- OUTSIDE RECORDS SUMMARY | 2023-10-28 11:03 | External Medical Summary | Summary of Care ---
Author Name Unknown Organization [facility] Address [address] [place] [address] Phone [phone] Care Team Providers Care Service Center Assistant Name Role Phone SandorArsalan haley Primary Care Provider [phone] Encounter Details Date Type Department Care Team (Latest Contact Info) Description 10/26/2023 Medication Management Jelena Persaud [facility] [address], [place] [id number] Estehr Gomez, [facility] [address], [place] [id number] Referred for management of medication therapy* Allergies Active Allergy Reactions Criticality Noted Date Comments Serg Inhibitors 08/03/2023 Alendronate 07/11/2002 Fosamax, severe cramping and diarrhea Sulindac 02/20/2010 Diazepam 08/03/2023 Duloxetine Hcl 08/03/2023 Nabumetone 08/03/2023 Nsaids 08/03/2023 Cisapride 02/20/2010 Phenazopyridine Hcl 09/08/2017 Relaform 02/20/2010 Sulfa Antibiotics 09/08/2017 Sulindac 08/03/2023 Valium 02/20/2010 documented as of this encounter (statuses as of 10/26/2023) Medications Medication Sig Dispensed Refills Start Date End Date Status Incruse Ellipta 62.5 MCG/ACT Inhalation Aerosol Powder Breath Activated (umeclidinium [place]) Inhale 1 Puff by mouth in the morning. Active Apixaban 5 MG Oral Tablet (Eliquis) TAKE ONE TABLET BY MOUTH TWICE A DAY 180 Tablet 09/28/2022 Active Atorvastatin Calcium 10 MG Oral Tablet (Lipitor) TAKE ONE TABLET BY MOUTH EVERY DAY 90 Tablet 09/28/2022 Active Spironolactone 100 MG Oral Tablet (Aldactone) TAKE ONE TABLET BY MOUTH EVERY DAY 90 Tablet 09/28/2022 Active Metoprolol Tartrate 100 MG Oral Tablet (Lopressor) TAKE ONE TABLET BY MOUTH TWICE A DAY 180 Tablet 09/28/2022 Active Venlafaxine HCl ER 150 MG Oral Capsule Extended Release 24 Hour (Effexor XR) TAKE ONE CAPSULE BY MOUTH EVERY DAY 90 Capsule 09/02/2022 11/19/2023 Active Furosemide 40 MG Oral Tablet (Lasix) Take 1 Tablet by mouth in the morning. Wednesday/ y and Wednesday only. Active amLODIPine Besylate 5 MG Oral Tablet (Norvasc) Take 1 Tablet by mouth daily. Active Potassium Chloride ER 20 MEQ Oral Tablet Extended Release Take 1 Tablet by mouth in the morning and 1 Tablet before bedtime. Active Saccharomyces boulardii 250 MG Oral Capsule (Florastor) Take 1 Capsule by mouth daily. Active Docusate Sodium 100 MG Oral Capsule (Colace) take 1 capsule by mouth twice daily 360 Capsule 10/01/2023 Active Amitriptyline HCl 50 MG Oral Tablet (Elavil) take one tablet by mouth at bedtime 90 Tablet 10/01/2023 Active Calcitriol 0.25 MCG Oral Capsule (Rocaltrol) Take 1 Capsule by mouth daily. 90 Capsule 10/01/2023 Active Furosemide 40 MG Oral Tablet (Lasix) take one tablet by mouth daily 90 Tablet 10/01/2023 Active Acetaminophen 325 MG Oral Tablet (Tylenol) take 2 tablets by mouth every 6 hours 100 Tablet 10/01/2023 Active Albuterol Sulfate HFA 108 (90 Base) MCG/ACT Inhalation Aerosol Solution Inhale 1 puff by mouth 4 times a day as needed 6.7 g 10/01/2023 Active Apixaban 5 MG Oral Tablet (Eliquis) take 2 tablets by mouth daily 180 Tablet 10/01/2023 Active Atorvastatin Calcium 10 MG Oral Tablet (Lipitor) take 1 tablet by mouth every day 90 Tablet 10/01/2023 Active Fluticasone Furoate-Vilanterol 100-25 MCG/ACT Inhalation Aerosol Powder Breath Activated (BREO ellipta) Inhale 1 puff by mouth daily 180 Each 10/01/2023 Active metFORMIN HCl ER 500 MG Oral Tablet Extended Release 24 Hour (Glucophage XR) Take 1 tablet by mouth daily 90 Tablet 10/01/2023 Active Mucinex DM 30-600 MG Oral Tablet Extended Release 12 Hour Take 1 talbet by mouth two times daily 60 Tablet 10/01/2023 Active documented as of this encounter (statuses as of 10/26/2023) Active Problems Problem Noted Date Diagnosed Date [...] LVEF, PROBNP, EGFR, HGB in the last 89855 hours. 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 01/04/2017 07/06/2022 Fibromyalgia 05/29/2013 05/29/2013 Heart failure, type unknown 06/22/2010 02/21/2014 HYPERTENSION NOS 12/15/2000 06/19/2009 documented as of this encounter (statuses as of 10/26/2023) Immunizations Name Administration Dates Next Due Pneumococcal Polysaccharide PPV23 (Pneumovax) 05/18/2010 Seasonal Influenza, Quad, Na wendi (Flumist) 02/16/2018 Seasonal Influenza, Split, I IV3, With Preserve, Inj 01/04/2014,01/12/2013,12/08/2011,01/06,05/18/2010 TD, Preservative Free 07/13/2008 TDAP (age 10 and older)(Boostrix) 08/25/2013 documented as of this encounter Social History Tobacco Use Types Packs/Day Years Used Date Smoking Tobacco: Every Day Cigarettes Smokeless Tobacco: Never Comments:06/23/2023 6 cigaret gale per day, declined phamplet Alcohol Use Standard Drinks/Week Comments No 0 (1 standard drink = 0.6 oz pur e alcohol) Sex and Gender Information Value Date Recorded Sex Assigned at Not on file Gender Identity Not on file Sexual Orientation Not on file Job Start Date Occupation Industry Not on file Not on file Not on file documented as of this encounter Functional Status Functional Status Response [...] as of this encounter Progress Notes * Esther Gomez RPh - 10/26/2023 11:04 AM EDT Paula Alvarez is a 88 year old female. TMR Interventions Incomplete Encounter MTPs No medication therapy recommendations to display Complete Encounter MTPs Referred for management of medication therapy Current Medication: Fluticasone Furoate-Vilanterol 100-25 MCG/ACT Inhalation Aerosol Powder Breath Activated (BREO ellipta) Rationale: More cost-effective medication available - Cost - Adherence Recommendation: Provide Education Status: No Longer Relevant Note: Managed by [facility]. Not filled since july Assessment & Plan Indication, effectiveness, safety and convenience of her medications were reviewed today. The patient's medical conditions were assessed, evaluated, and deemed meeting goals of drug therapy, with thefollowing exceptions. Additional Notes: N/a Esther Gomez RPh 10/26/2023, 11:04 AM documented in this encounter Plan of Treatment Health Maintenance Due Date Last Done Comments [...] exists DISCUSS TOBACCO CESSATION (REFER TO SMARTSET #3291) 06/25/2023 06/24/2022 DTaP,Tdap,and Td Vaccines (2 - Td or Tdap) 08/26/2023 08/25/2013, 07/13/2008 *CXR OR CT FOR COPD EVER 10/17/2023 Influenza Vaccine (FLU shot) (#1) 2023 01/08/2023, 01/12/2019, 02/16/2018, Additional history exists O2 ASSESSMENT COMPLETED IN PAST YEAR FOR COPD 04/12/2024 04/12/2023 Diabetic Eye Exam 09/05/2024 09/06/2023, , 08/05/2023, Additional history exists VITAMIN D LEVEL ONCE IN A LIFETIME-USE SMARTSET# 63933 Completed 07/20/2013, 06/11/2009 Pneumococcal Vaccine: 65+ Years Completed 01/31/2016, 05/25/2013, 05/18/2010 HPV (Gardasil) Vaccine Aged Out No lo nger eligible based on patient's age to complete this topic Hepatitis B Vaccine Aged Out No longe r eligible based on patient's age to complete this topic MENINGOCOCCAL (MENACTRA/MENVEO) Aged Out No longer eligible based on patient's age to complete this topic documented as of this encounter Medical Devices Implanted Type Area Supervisor Beater Room Device Identifier Shelf Expiration Date Model / Serial / Lot Stent Graft [id number] - [id number] - [id number] Implanted:Qty: 1 on 12/03/2016 by Omer Kidd MD at OR [facility] Left: Renal Artery [employer] 08/18/2019 56440 / [id number] / Stent Graft [id number] - [id number] - [id number] Implanted:Qty: 1 on 12/03/2016 by Omer Kidd MD at OR [facility] Left: Renal Artery [employer] 12/05/2018 89049 / [id number] / Stent Graft [id number] - [id number] - [id number] Implanted:Qty: 1 on 12/03/2016 by Omer Kidd MD at OR [facility] Left: Renal Artery [employer] 08/18/2019 [id number] / [id number] / documented as of this encounter Visit Diagnoses Diagnosis Referred for management of medication therapy- Primary Encounter for long-term (current) use of other medications documented in this encounter Advance Directives * Full Code (Latest Code Status on File) Date Activated Date Inactivated Comments 12/03/2016 1:06 PM 12/04/2016 10:28 PM This order r eflects the patients wishes and were consensually agreed upon. * Full Code Date Activated Date Inactivated Comments 06/20/2010 10:41 PM 06/26/2010 6:49 PM This order reflects the patients wishes and were consensually agreed upon. Care Teams Service Center Assistant Relationship Specialty Start Date End Date Arsalan Pisano DO [address] [place], [place] [address] [id number] PCP - General Internal Medicine 06/24/22 documented as of this encounter
--- OUTSIDE RECORDS SUMMARY | 2023-10-28 11:03 | External Medical Summary | Summary of Care ---
Author Name Unknown Organization [facility] Address [address] [facility] [place] [address] Phone [phone] Care Team Providers Care Knockout Machine Operator Name Role Phone Arsalan Pisano Primary Care Provider Encounter Details Date Type Department Care Team (Late st Contact Info) Description 09/27/2023 Population Health External Data Unspecified Department Allergies Active Allergy Reactions Criticality Noted Date Comments Serg Inhibitors 08/03/2023 Alendronate 07/11/2002 Fosamax, severe cramping and diarrhea Sulindac 02/20/2010 Diazepam 08/03/2023 Duloxetine Hcl 08/03/2023 Nabumetone 08/03/2023 Nsaids 08/03/2023 Cisapride 02/20/2010 Phenazopyridine Hcl 09/08/2017 Relaform 02/20/2010 Sulfa Antibiotics 09/08/2017 Sulindac 08/03/2023 Valium 02/20/2010 documented as of this encounter (statuses as of 09/28/2023) Medications Medication Sig Dispensed Refills Start Date End Date Status Incruse Ellipta 62.5 MCG/ACT Inhalation Aerosol Powder Breath Activated (umeclidinium [place]) Inhale 1 Puff by mouth in the morning. Active Mucinex DM 30-600 MG Oral Tablet [...] BY MOUTH EVERY DAY 180 Each 09/28/2022 10/08/2023 Active Apixaban 5 MG Oral Tablet (Eliquis) TAKE ONE TABLET BY MOUTH TWICE A DAY 180 Tablet 09/28/2022 10/08/2023 Active Calcitriol 0.25 MCG Oral Capsule (Rocaltrol) TAKE ONE CAPSULE BY MOUTH EVERY DAY 90 Capsule 09/28/2022 10/08/2023 Active Atorvastatin Calcium 10 MG Oral Tablet (Lipitor) TAKE ONE TABLET BY MOUTH EVERY DAY 90 Tablet 09/28/2022 10/09/2023 Active Spironolactone 100 MG Oral Tablet (Aldactone) TAKE ONE TABLET BY MOUTH EVERY DAY 90 Tablet 09/28/2022 10/08/2023 Active metFORMIN HCl ER 500 MG Oral Tablet Extended Release 24 Hour (Glucophage XR) TAKE ONE TABLET BY MOUTH EVERY DAY 90 Tablet 09/28/2022 10/08/2023 Active Amitriptyline HCl 50 MG Oral Tablet (Elavil) TAKE ONE TABLET BY MOUTH AT BEDTIME 90 Tablet 09/28/2022 10/22/2023 Active Metoprolol Tartrate 100 MG Oral Tablet (Lopressor) TAKE ONE TABLET BY MOUTH TWICE A DAY 180 Tablet 09/28/2022 Active Venlafaxine HCl ER 150 MG Oral Capsule Extended Release 24 Hour (Effexor XR) TAKE ONE CAPSULE BY MOUTH EVERY DAY 90 Capsule 09/02/2022 11/19/2023 Active Furosemide 40 MG Oral Tablet (Lasix) Take 1 Tablet by mouth in the morning. Wednesday/Wednesday and Wednesday only. Active amLODIPine Besylate 5 MG Oral Tablet (Norvasc) Take 1 Tablet by mouth daily. Active Potassium Chloride ER 20 MEQ Oral Tablet Extended Release Take 1 Tablet by mouth in the morning and 1 Tablet before bedtime. Active Saccharomyces boulardii 250 MG Oral Capsule (Florastor) Take 1 Capsule by mouth daily. Active documented as of this encounter (statuses as of 09/28/2023) Active Problems Problem Noted Date Diagnosed Date [...] LVEF, PROBNP, EGFR, HGB in the last 78158 hours. 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 01/04/2017 07/06/2022 Fibromyalgia 05/29/2013 05/29/2013 Heart failure, type unknown 06/22/2010 02/21/2014 HYPERTENSION NOS 12/15/2000 06/19/2009 documented as of this encounter (statuses as of 09/28/2023) Immunizations Name Administration Dates Next Due Pneumococcal [...] No 12/03/2016 documented as of this encounter Plan of Treatment Health Maintenance [...] exists DISCUSS TOBACCO CESSATION (REFER TO SMARTSET #5173) 06/25/2023 06/24/2022 DTaP,Tdap,and Td Vaccines (2 - Td or Tdap) 08/26/2023 08/25/2013, 07/13/2008 O2 ASSESSMENT COMPLETED IN PAST YEAR FOR COPD 04/12/2024 04/12/2023 Diabetic Eye Exam 09/05/2024 09/06/2023, , 08/05/2023, Additional history exists VITAMIN D LEVEL ONCE IN A LIFETIME-USE SMARTSET# 22918 Completed 07/20/2013, 06/11/2009 Pneumococcal Vaccine: 65+ Years [...] this encounter Medical Devices Implanted Type Area R Developer Device Identifier Shelf Expiration Date Model / Serial / Lot Stent Graft [id number] - [id number] - [id number] Implanted:Qty: 1 on 12/03/2016 by Omer Kidd MD at OR [facility] [place] Left: Renal Artery [employer] 08/18/2019 11246 / [id number] / Stent Graft [id number] - [id number] - [id number] Implanted:Qty: 1 on 12/03/2016 by Omer Kidd MD at OR [facility] – [place] Left: Renal Artery [employer] 12/05/2018 19605 / [id number] / Stent Graft [id number] - [id number] - [id number] Implanted:Qty: 1 on 12/03/2016 by Omer Kidd MD at OR [facility] [place] Left: Renal Artery [employer] 08/18/2019 [id number] / [id number] / documented as of this encounter Advance Directives * Full Code (Latest Code Status on File) Date Activated Date Inactivated Comments 12/03/2016 1:06 PM 12/04/2016 10:28 PM This order r eflects the patients wishes and were consensually agreed upon. * Full Code Date Activated Date Inactivated Comments 06/20/2010 10:41 PM 06/26/2010 6:49 PM This order reflects the patients wishes and were consensually agreed upon. Care Teams Knockout Machine Operator Relationship Specialty Start Date End Date Arsalan Pisano DO [address] [place] [address] [place] [id number] PCP - General Internal Medicine 06/24/22 documented as of this encounter
[2023-10-28 11:24] LABS: Appearance Urine Cloudy (Clear); Bacteria Urine Automated 4+ (None Seen); Bilirubin Urine Negative (Negative); Blood Urine Negative (Negative); Cast Urine Automated 0-2 /lpf (0-2); Color Urine Yellow; Epithelial Cell Urine Auto 0-2 /hpf (0-2); Glucose Urine UA Negative (Negative); Ketones Urine Negative (Negative); Leukocyte Esterase Urine 1+ (Negative); Nitrite Urine Positive (Negative); Protein Urine 1+ (Negative); Specific Gravity Urine 1.021 (1.000-1.030); Urobilinogen Urine Negative (Negative); WBC Urine Automated 21-50 /hpf (0-5); pH Urine 5.5 (4.5-7.5)
--- NOTE | 2023-10-28 11:36 | History & Physical Report ---
Date of Service October 28, 2023 Assessment & Plan (1) Fall: (2) Traumatic hematoma of forehead: (3) Shoulder pain: (4) Weakness: Plan: This is an 88-year-old female from [facility] with PMH of COPD, HFpEF with a's/ARB contraindicated, hypertension, persistent atrial fibrillation on Eliquis, type 2 diabetes, dyslipidemia and other medical problems listed below who presents after a fall at home. CT head with No acute infarct or intracranial hemorrhage. Left frontal scalp injury Cervical CT spine without evidence of acute bony injury CXR with stable cardiomegaly. Otherwise, no acute process within the chest Shoulder XR there is possibly be a nondisplaced fracture of the acromion, which is visualized on the internal rotation image only. If clinical concern remains, CT can be performed Ankle XR Soft tissue swelling is seen without evidence of underlying bony abnormality Routine ortho consult for MSK injuries Fall precautions PT/OT evals (5) Acute metabolic encephalopathy: Plan: Likely 2/2 infection 2/2 UTI, covid - continue abx However, given head trauma from fall as above and increasing lethargy since time of arrival, will repeat head CT to r/o bleed (6) UTI (urinary tract infection): Plan: Abnormal UA, follow urine culture Starting on Ertapenem with ESBL history Contact precautions (7) COVID-19: Plan: Tested positive today, 10/27 Isolation precautions Saturating at 92% on 2 L NC Receiving steroids for COPD exacerbation as below (8) Acute exacerbation of chronic obstructive pulmonary disease: Plan: Given Duonebs, IV solu-medrol in ED ABG reassuring Continue daily IV solu-medrol, Duonebs, supplemental O2 as needed (9) Atrial fibrillation with rapid ventricular response: Plan: HR 128 --> 113 with IV lopressor Given add'l 5mg IV labetalol in ED Continue PRN IV lopressor until more alert then transition to PO when able (10) Diastolic CHF: Plan: Appears dry clinically, BNP pending Stable cardiomegaly. Otherwise, no acute process within the chest Hold diuretics today Reassess resuming home lasix tomorrow Continue spironolactone, lopressor (11) Diabetes mellitus, type II: Plan: A1c 7.05 September 2022 Hold home agents SSI while in-patient BSG AC HS (12) CKD (chronic kidney disease), stage III: Plan: Cr 1.20 (baseline Cr ~1.1-2). Monitor with daily BMP (13) Hypertension: Plan: Continue lopressor, spironolactone as able DVT Ppx: Resume Eliquis this evening based on repeat head CT Code status: DNR/DNI PCP: [facility] Dispo: admitted to PCU Patient seen in collaboration with Dr. Wu. Please see addendum. I spent a total of 75 minutes coordinating, documenting, and providing care for this patient excluding time spent in the performance of separately billed services. History of Present Illness Chief Complaint: Shortness of breath Primary Care Provider: [facility] This is an 88-year-old female from [facility] with PMH of COPD, HFpEF with a's/ARB contraindicated, hypertension, persistent atrial fibrillation on Eliquis, type 2 diabetes, dyslipidemia and other medical problems listed below who presents after a fall at home. Hit her left side of forehead with some associated pain. Fall was unwitnessed but thought to be around 430 this morning. Was found down on the ground around 745. Denies any loss of consciousness. Does have some residual left elbow and left ankle pain. More lethargic on admission evaluation - ABG and CT head added. ROS unobtainable 2/2 reduced consciousness. Allergies Allergy/AdvReac Type Severity Reaction Status Date / Time SOLANGE Inhibitors Allergy Unknown ON [facility] Verified 06/28/23 20:17 MED LIST alendronate sodium Allergy Unknown ON [facility] Verified 06/28/23 20:17 MED LIST ARB-Angiotensin Receptor Allergy Unknown Unknown Verified 06/28/23 20:17 Antagonist cisapride Allergy Unknown UNKNOWN Verified 06/28/23 20:17 diazepam Allergy Unknown ON [facility] Verified 06/28/23 20:17 MED LIST nabumetone Allergy Unknown ON [facility] Verified 06/28/23 20:17 MED LIST NSAIDS (Non-Steroidal Allergy Unknown ON [facility] Verified 06/28/23 20:17 Anti-Inflamma MED LIST phenazopyridine Allergy Unknown ON [facility] Verified 06/28/23 20:17 MED LIST Sulfa (Sulfonamide Allergy Unknown ON [facility] Verified 06/28/23 20:17 Antibiotics) MED LIST sulindac Allergy Unknown ON [facility] Verified 06/28/23 20:17 MED LIST duloxetine AdvReac Severe Diarrhea Verified 06/28/23 20:17 Home Medications Medication Instructions Recorded Confirmed Type docusate sodium 100 mg capsule 200 mg PO BIDM 12/24/19 10/28/23 History (Stool Softener) acetaminophen 325 mg tablet 650 mg PO Q6H PRN PAIN/FEVER 01/07/22 10/28/23 History (Tylenol) atorvastatin 10 mg tablet (Lipitor) 10 mg PO QAM #90 tabs 03/25/22 10/28/23 Rx umeclidinium 62.5 mcg/actuation 1 inh inhalation QAM #30 ea 04/21/22 10/28/23 Rx blister powder for inhalation (Incruse Ellipta) albuterol sulfate 90 mcg/actuation 1 inh inhalation QID PRN shortness 05/04/22 10/28/23 Rx aerosol inhaler of breath or wheezing 90 days #20.1 grams calcitriol 0.25 mcg capsule 0.25 mcg PO QAM #90 caps 05/27/22 10/28/23 Rx fluticasone furoate 100 1 ea inhalation QAM 08/03/22 10/28/23 History mcg-vilanterol 25 mcg/dose inhalation powder (Breo Ellipta) metformin 500 mg tablet,extended 500 mg PO QAM 08/03/22 10/28/23 History release 24 hr venlafaxine 150 mg 150 mg PO QAM #90 caps 08/07/22 10/28/23 Rx capsule,extended release 24 hr furosemide 40 mg tablet (Lasix) 40 mg PO 3XWK 10/12/22 10/28/23 History dextromethorphan-guaifenesin 30 1 tab PO Q12H PRN Congestion 12/18/22 10/28/23 History mg-600 mg tablet extended [id number] hr (Mucinex DM) apixaban 5 mg tablet (Eliquis) 5 mg PO BIDM 06/28/23 10/28/23 History metoprolol tartrate 100 mg tablet 100 mg PO BIDM 06/28/23 10/28/23 History spironolactone 50 mg tablet 100 mg PO DAILY 10/28/23 10/28/23 History Past Med/Surg History Problem List (Updated 10/28/23 @ 15:27 by Angeles Narayan PA-C) Shoulder pain UTI (urinary tract infection) Fall at home Acute metabolic encephalopathy Hypoxia (Acute) Weakness (Acute) COVID-19 (Acute) Traumatic hematoma of forehead (Acute) CHI (closed head injury) (Acute) Atrial fibrillation with rapid ventricular response (Acute) Skin tear of left upper extremity (Acute) Acute exacerbation of chronic obstructive pulmonary disease (Acute) Right knee DJD Diastolic CHF Acute hypoxemic respiratory failure Atrial flutter with rapid ventricular response (Acute) Acute UTI (Acute) Anticoagulant long-term use Chronic atrial flutter Syncope and collapse Diabetes mellitus, type II (Chronic) CKD (chronic kidney disease), stage III (Chronic) Antiplatelet or antithrombotic long-term use Frequent falls Hallucinations Fibromyalgia Vitamin D deficiency (Acute) Hiatal hernia (Acute) Gait disturbance (Acute) Left knee DJD Left ventricular hypertrophy Atrial fibrillation with RVR (Acute) COPD exacerbation Tobacco abuse Acute exacerbation of chronic obstructive pulmonary disease (Acute) History of ESBL E. coli infection (Acute) Depression Venous stasis dermatitis of both lower extremities Asymptomatic bacteriuria Atrial flutter Hypertension Stress incontinence Hyperlipidemia Medical History S/P transesophageal echocardiogram ([facility]) correction resident [facility] RESIDENT Non-functioning kidney Renal artery stenosis Dizziness Rapid atrial fibrillation Peripheral neuropathy Stage 3 chronic kidney disease Type 2 diabetes mellitus Fibromyalgia Surgical History History of stent insertion of renal artery (~12/03/16) Family History Father Prostate cancer Sister Breast cancer Brother Lung cancer Sister Lung cancer Denies family history of Ovarian cancer Myocardial infarction Colorectal cancer Social History Smoking Status: Current every day smoker Tobacco Type: Cigarettes Age Started Using Tobacco: 21; packs per day: 0.25; Cigarettes Per Day: 5; Second Hand Exposure: No; Do You Dip or Chew Tobacco: No; Hx Alcohol Use: No Hx Substance Use: No Preferred Language: Wolof Communication Ability: Impaired Visual Impairment: Limited Hearing Ability: Hard of Hearing Hand Tube Winder Required: No Beliefs That Will Affect Care: None marital status: / Current Living Situation: Personal Care Facility Current Living Situation Comment: [facility] current occupational status: retired current occupation: retired from career working on her farm Feels Safe at Home: Yes Childhood Exposure to Second-Hand Smoke: Yes Diet: regular Dental Care, Regularly: No Physical Activity Frequency: Does not Exercise Seatbelt Use: always Sunscreen Use: No Assistive Devices: Walker and Wheelchair Review of Systems Review of Systems: At least ten systems reviewed and negative except as noted in the HPI. Physical Exam Physical Exam: Please see Dr. Wu' addendum for physical exam. Results & Data Results & Data Vital Signs (Past 12 Hours) Vital Signs Temp Pulse Pulse Resp BP BP Pulse Ox 10/28/23 10:53 110 H 158/92 H 10/28/23 10:06 118 H 167/128 H 10/28/23 10:05 167/128 H 10/28/23 09:43 100 H 21 100/77 95 10/28/23 08:56 124 H 10/28/23 08:55 128 H 19 95 10/28/23 08:55 36.8 C 128 H 19 105/33 L 95 10/28/23 08:55 95 10/28/23 08:55 36.8 C 128 H 19 105/33 L 95 10/28/23 08:55 36.8 C 128 H 19 105/33 L 95 10/28/23 08:55 36.8 C 128 H 19 105/33 L 95 O2 Del Method 10/28/23 10:53 10/28/23 10:06 10/28/23 10:05 10/28/23 09:43 Room Air 10/28/23 08:56 10/28/23 08:55 Room Air 10/28/23 08:55 Room Air 10/28/23 08:55 Room Air 10/28/23 08:55 Room Air 10/28/23 08:55 Room Air 10/28/23 08:55 Room Air Laboratory Results Short CBC 10/28/23 Range/Units 08:57 WBC 7.61 (4.8-10.8) K/ul Hgb 15.2 (12.0-16.0) g/dl Hct 47.1 H (37.0-47.0) % Plt Count 260 (130-400) K/uL BMP 10/28/23 08:57 Sodium 136 Potassium 4.5 Chloride 101 Carbon Dioxide 26 BUN 26 H Creatinine 1.20 Glucose 139 H Calcium 10.0 Cardiac Enzymes 10/28/23 Range/Units 08:57 Total Creatine Kinase 44 (26-192) U/L Liver Function 10/28/23 Range/Units 08:57 Total Bilirubin 0.4 (0.2-1.0) mg/dl AST 12 L (13-39) U/L ALT 9 (7-52) U/L Alkaline Phosphatase 125 H (34-104) U/L Albumin 4.1 (3.4-5.0) gm/dl Urine 10/28/23 Range/Units Unknown Urine Color Yellow Urine Appearance Cloudy A (Clear) Urine pH 5.5 (4.5-7.5) Ur Specific [place] 1.021 (1.000-1.030) Urine Protein 1+ H (Negative) Urine Glucose (UA) Negative (Negative) Diagnostic Findings Ankle X-Ray 10/28/23 09:00 XR ankle LT 2V CLINICAL HISTORY: swelling/fall TECHNIQUE: 2 views of the left ankle were obtained. Comparison: None available at the time of this dictation. FINDINGS: No fractures are present. A well-corticated medial malleolus bony fragment is likely chronic. Degenerative changes are seen. Soft tissue swelling is seen about the ankle. IMPRESSION: Soft tissue swelling is seen without evidence of underlying bony abnormality. ACT 112: Negative or not required by law. Electronically signed by: Wong Ramos M.D. 10/28/2023 9:[address] 10/28/23 09:01 CT cervical spine wo con CLINICAL HISTORY: Trauma TECHNIQUE: Multidetector row helical CT of the cervical spine was performed without administration of intravenous contrast. Coronal and sagittal reformations were obtained. Automated dose lowering techniques and/or adjustment according to patient size were utilized for this exam. Comparison: Comparison is made to CT chest 12/18/2022 FINDINGS: No acute fractures are seen. Degenerative changes are seen in the visualized spine. The alignment is normal. Soft tissues are unremarkable. IMPRESSION: Degenerative changes without evidence of acute bony injury. ACT 112: Negative or not required by law. Electronically signed by: Wong Ramos M.D. 10/28/2023 9:[address] 10/28/23 09:[address] DOSE: HISTORY: Trauma TECHNIQUE: Multiaxial CT images of the head were performed without the use of intravenous contrast. Automated exposure control was utilized for this study. A dose lowering technique was utilized adhering to the principles of ALARA. Comparison: Head CT 12/19/2022. Findings: The paranasal sinuses and mastoid air cells are clear. The calvarium and skull base are intact. There is no mass, hematoma, midline shift, acute infarct. White matter hypodensity is nonspecific but suggestive of microvascular ischemic change. The ventricles and sulci demonstrate mild age-related involutional changes. Mild motion artifact. Left frontal scalp swelling/hematoma. Impression: 1. No acute infarct or intracranial hemorrhage. 2. Left frontal scalp injury. ACT 112: Negative or not required by law. Electronically signed by: Steven Cuba M.D. 10/28/2023 9:49 AM Chest X-Ray 10/28/23 09:07 XR chest 1V portable HISTORY: Fall. coarse sounds, h/o COPD COMPARISON: Chest 07/06/2023. FINDINGS: No pneumothorax. No pleural effusions. A few small left basilar linear densities have improved and favor subsegmental atelectasis. No new focal lung consolidations to suggest a pneumonia. No evidence for pulmonary edema. The heart remains mildly enlarged. There are calcifications within the aortic knob. Old left-sided rib fractures again noted. No acute fractures. IMPRESSION: Stable cardiomegaly. Otherwise, no acute process within the chest. ACT 112: Negative or not required by law. Electronically signed by: Steven Cuba M.D. 10/28/2023 9:40 AM Shoulder X-Ray 10/28/23 09:14 XR shoulder LT min 2V routine CLINICAL HISTORY: possible broken Left Shoulder TECHNIQUE: 3 views of the left shoulder were obtained. Comparison: Comparison is made to left humerus radiographs 05/16/2016 FINDINGS: In the internal rotation image only, there is a linear lucency in the acromion. Joint spaces are well-preserved. The overlying soft tissues are unremarkable. The visualized portions of the lungs are clear. IMPRESSION: There is possibly be a nondisplaced fracture of the acromion, which is visualized on the internal rotation image only. If clinical concern remains, CT can be performed. ACT 112: Negative or not required by law. Electronically signed by: Wong Ramos M.D. 10/28/2023 9:46 AM Code Status & VTE Plan VTE Prophylaxis Plan VTE Prophylaxis will be ordered: Yes Supervising Physician Co-Signing Physician Notes I have seen and discussed the case with the collaborating advanced practitioner. I agree with the above H&P. I have reviewed and confirmed the patients medical history, the findings on physical examination, and the patients diagnosis and treatment plan with ANTONIO and agree with the information documented. Ms Alvarez is an 87yo woman with PMhx significant for chronic diastolic heart failure (EF 55 to 60%, TTE 2021), mild MR, A-fib/atrial flutter on Eliquis, hypertension, hyperlipidemia, PVD status post surgery, COPD, DM 2 on oral medications, recurrent UTIs (history of ESBL), fibromyalgia, mood disorder, past tobacco abuse presenting acute encephalopathy and mechanical fall. Patient more lethargic at bedside. Would answeer to name intermittently and not following commands GENERAL APPEARANCE: AxO0, difficult to arouse, maintaining airway HEENT: NC, AT. MMM. EOMI, clear conjunctiva, oropharynx clear. NECK: Supple without lymphadenopathy. No stiffness or restricted ROM. HEART: tachycardic irregularly irregular LUNGS: scatter rhonchi audible ABDOMEN: Soft, nontender, nondistended with good bowel sounds heard. BACK: No CVAT, no obvious deformity. EXTREMITIES: Without cyanosis, clubbing or edema. NEUROLOGICAL: Grossly nonfocal. withdrawals all 4 extremities. CN not formally tested but appear grossly intact. Observed to ambulate with normal gait. Skin: left ankle swelling without erythema, #Acute toxic metabolic encephalopathy #Mechanical fall with head trauma likely iso of infection CT head on admission negative Repeat CT head given worsening AMS iso head trauma however suspect iso infection #Acute complicated cystitis #History of ESBL UA suggestive of infection Start ertapenem #acute hypoxic respiratory failure #COVID infection #Acute COPD rhonchi/wheezing, however, unlikely reinfection and just continued PCR positivity Continue nebs Continue with pred IV qd x 5 #Atrial fibrillation with RVR #Chronic heart failure with preserved EF CXR clear BNP ordered Labetolol for BP prn Metoprolol 5mg q4 until able to take prn Rest of plan as above I spent a total of 35 minutes coordinating, documenting, and providing care for this patient excluding time spent in the performance of separately billed services. All of the aforementioned completed outside of collaborating with the assigned advanced practitioner for a full treatment plan. I have reviewed the advanced practitioner's documentation, and I agree with, and take responsibility for the plan of care (2) Traumatic hematoma of forehead Encounter type: initial encounter Qualified Code(s): S00.83XA - Contusion of other part of head, initial encounter (13) Hypertension Hypertension type: renovascular hypertension Qualified Code(s): I15.0 - Renovascular hypertension
--- NOTE | 2023-10-28 11:47 | Electrocardiogram Report ---
Test Reason : Blood Pressure : / mmHG Vent. Rate : 109 BPM Atrial Rate : 000 BPM P-R Int : 000 ms QRS Dur : 086 ms QT Int : 332 ms P-R-T Axes : 000 -45 164 degrees QTc Int : 447 ms Atrial fibrillation with rapid ventricular response Left axis deviation Left ventricular hypertrophy with repolarization abnormality Abnormal ECG When compared with ECG of 13-JUL-2023 14:54, HR has increased 23 bpm Confirmed by Ovidio Ross ([id number]) on 10/28/2023 11:47:18 AM Referred By: Confirmed By:Ovidio Ross
[2023-10-28] MEDS: guaiFENesin 600 MG TABCR PO SCH (12:28)
[2023-10-28 12:32] LABS: Base Excess ABG -1.2 mEq/L (-9-1.8); HCO3 ABG 23 mmol/L (19-24); Oxygen Saturation ABG 95.2 % (90-95); PCO2 ABG 35 mmHg (35-46); PO2 ABG 68 mmHg (80-95); pH ABG 7.42 (7.35-7.45)
[2023-10-28 12:33] LABS: Allen Test Pos (Pos)
[2023-10-28] MEDS: LABETALOL HCL IV 5 MG/ML 20ML IV STA (13:09)
[2023-10-28] MEDS: ALBUT/IPRATROP 3MG/0.5MG NEB 3 ML VIAL NEB SCH (14:40)
[2023-10-28] MEDS ORDERED: CARBOHYDRATES FOR HYPOGLYCEMIA PO PRN (14:54)
[2023-10-28] MEDS ORDERED: DEXTROSE 50% 50 ML SYRINGE IV PRN (14:54)
[2023-10-28] MEDS ORDERED: ONDANSETRON INJ 2 MG/ML 2 ML VIAL IV PRN (14:54)
[2023-10-28] MEDS ORDERED: ACETAMINOPHEN 325 MG TAB PO PRN (14:54)
[2023-10-28] MEDS ORDERED: GLUCOSE 10 TAB/TUBE PO PRN (14:54)
[2023-10-28] MEDS ORDERED: GLUCAGON FOR INJ 1 MG VIAL SQ PRN (14:54)
[2023-10-28] MEDS ORDERED: POLYETHYLENE (MIRALAX) 17 GM PACK PO PRN (14:54)
[2023-10-28] MEDS ORDERED: ALBUTEROL HFA 8 GM INHALER INH PRN (14:54)
[2023-10-28] MEDS ORDERED: GLUCOSE 40% GEL 15 GM TUBE PO PRN (14:54)
[2023-10-28] MEDS: ERTAPENEM SODIUM 1,000 MG in SYRINGE 0 ML IV SCH (15:24)
[2023-10-28] MEDS: METOPROLOL TARTRATE 1 MG/ML VIAL IV SCH (15:29)
[2023-10-28] MEDS: INSULIN ASPART PER UNIT CHARGE SC SCH (15:40)
[2023-10-28] MEDS: DOCUSATE SODIUM 100 MG CAP PO SCH (15:41)
--- NOTE | 2023-10-28 15:41 | CT Scan Report ---
HEAD CT NONCONTRAST CT DOSE: 547.75 mGy.cm HISTORY: increased lethargy, fall on eliquis TECHNIQUE: Multiaxial CT images of the head were performed without the use of intravenous contrast. A utomated exposure control was utilized for this study. A dose lowering technique was utilized adheri ng to the principles of ALARA. Comparison: Head CT 10/28/2023. Findings: The paranasal sinuses and mastoid air cells are clear. The calvarium and skull base are int act. There is no mass, hematoma, midline shift, acute infarct. White matter hypodensity is nonspecifi c but suggestive of microvascular ischemic change. The ventricles and sulci demonstrate mild age-rela lawanda involutional changes. Left frontal scalp swelling/hematoma again noted. Impression: No acute intracranial abnormality. Left frontal scalp injury again noted. ACT 112: Negative or not required by law. Electronically signed by: Steven Cuba M.D. 10/28/2023 3:39 PM
[2023-10-28] MEDS ORDERED: METOPROLOL TARTRATE 1 MG/ML VIAL IV SCH (18:00)
[2023-10-28] MEDS: NYSTATIN OINT 15 GM TUBE EXT SCH (18:13)
[2023-10-28] MEDS: LACTATED RINGER'S 500 ML IV ONE (19:25)
[2023-10-28] MEDS: LACTATED RINGER'S 1,000 ML IV SCH (19:26)
[2023-10-28] MEDS: APIXABAN 5 MG TABLET PO SCH (19:27)
[2023-10-29] MEDS: PNEUMOCOCCAL VACCINE (PCV20) 20-VAL CONJ-DIP CRM/PF 0.5 ML SYR IM ONE (01:00)
[2023-10-29 04:57] LABS: Hematocrit (blood only) 40.4 % (37.0-47.0); Hemoglobin 13.3 g/dl (12.0-16.0); Mean Corpuscular Hemoglobin 31.4 pg (25.0-34.0); Mean Corpuscular Hgb Conc 32.9 g/dL (32.0-36.0); Mean Corpuscular Volume 95.5 fL (80.0-100.0); Mean Platelet Volume 8.8 fL (9.4-12.4); Platelet Count 215 K/uL (130-400); RDW Coefficient of Variation 13.3 % (11.5-14.5); RDW Standard Deviation 46.6 fL (36.4-46.3); Red Blood Count 4.23 M/uL (4.20-5.40); White Blood Count 8.47 K/ul (4.8-10.8)
[2023-10-29 05:43] LABS: BUN Creatinine Ratio 25.3 (10-20); Calcium 9.3 mg/dl (8.6-10.3); Creatinine Clr Calc Pharmacy 44.1 ml/min; Est GFR (African American) 73.5 ml/min; Est GFR (Non-African American) 63.4 ml/min; Potassium 4.1 mmol/L (3.5-5.1)
[2023-10-29] MEDS: methylPREDNISolone 40 MG in SYRINGE 0 ML IV SCH (08:30)
[2023-10-29] MEDS: SODIUM CHLORIDE 0.9% 1,000 ML IV SCH (08:33)
[2023-10-29] MEDS: VENLAFAXINE HCL XR 150 MG CAPXR PO SCH (08:37)
[2023-10-29] MEDS: CALCITRIOL 0.25 MCG CAPSULE PO SCH (08:37)
[2023-10-29] MEDS: ATORVASTATIN 10 MG TAB PO SCH (08:38)
[2023-10-29] MEDS: UMECLIDINIUM BROMIDE 62.5MCG/BLISTER 7 PUFFS/INHALER INH SCH (08:38)
[2023-10-29] MEDS: FLUTICASONE/VILANTEROL 100/25MCG 14 PUFFS/INHALER INH SCH (08:38)
--- NOTE | 2023-10-29 08:39 | Orthopedic Consultation ---
Date of Consultation October 29, 2023 Assessment & Plan (1) Shoulder pain: Discussed with the patient that I do not believe she has a fracture in her shoulder. No immobilization is therefore required. Pain is likely coming from a contusion from her fall. She can weight-bear as tolerated through the left upper extremity. Rest and oral medication as well as ice for symptomatic treatment. (2) Fall at home: (3) Left ankle swelling: For her left ankle swelling it is not clear if this is acute or chronic. I do not feel any instability on her exam. Therefore think she has a stable ankle and does not require any immobilization. She can weight-bear as tolerated. Symptomatic treatment with rest ice compression as needed and anti-inflammatory medications. She can follow-up with her primary care physician. Orthopedics will sign off. History of Present Illness Attending Physician: Amber Mills MD History of Present Illness This is an 88-year-old female from [facility] with PMH of COPD, HFpEF with a's/ARB contraindicated, hypertension, persistent atrial fibrillation on Eliquis, type 2 diabetes, dyslipidemia and other medical problems listed below who presents after a fall at home. Upon presentation to the ER she complained of left shoulder pain and left ankle pain. X-rays were obtained. There was a question of a acromial fracture on the left side. Orthopedics was consulted for evaluation and management. Patient was seen and examined in the hospital this morning. She seems a little bit confused. She says her shoulder does not hurt that bad. She says her ankle feels swollen but says it also does not hurt that bad. She does not remember exactly how she fell. Denies numbness or tingling in the left upper and lower extremities. Allergies Allergy/AdvReac Type Severity Reaction Status Date / Time SOLANGE Inhibitors Allergy Unknown ON [facility] Verified 06/28/23 20:17 MED LIST alendronate sodium Allergy Unknown ON [facility] Verified 06/28/23 20:17 MED LIST ARB-Angiotensin Receptor Allergy Unknown Unknown Verified 06/28/23 20:17 Antagonist cisapride Allergy Unknown UNKNOWN Verified 06/28/23 20:17 diazepam Allergy Unknown ON [facility] Verified 06/28/23 20:17 MED LIST nabumetone Allergy Unknown ON [facility] Verified 06/28/23 20:17 MED LIST NSAIDS (Non-Steroidal Allergy Unknown ON [facility] Verified 06/28/23 20:17 Anti-Inflamma MED LIST phenazopyridine Allergy Unknown ON [facility] Verified 06/28/23 20:17 MED LIST Sulfa (Sulfonamide Allergy Unknown ON [facility] Verified 06/28/23 20:17 Antibiotics) MED LIST sulindac Allergy Unknown ON [facility] Verified 06/28/23 20:17 MED LIST duloxetine AdvReac Severe Diarrhea Verified 06/28/23 20:17 Home Medications Medication Instructions Recorded Confirmed Type docusate sodium 100 mg capsule 200 mg PO BIDM 12/24/19 10/28/23 History (Stool Softener) acetaminophen 325 mg tablet 650 mg PO Q6H PRN PAIN/FEVER 01/07/22 10/28/23 History (Tylenol) atorvastatin 10 mg tablet (Lipitor) 10 mg PO QAM #90 tabs 03/25/22 10/28/23 Rx umeclidinium 62.5 mcg/actuation 1 inh inhalation QAM #30 ea 04/21/22 10/28/23 Rx blister powder for inhalation (Incruse Ellipta) albuterol sulfate 90 mcg/actuation 1 inh inhalation QID PRN shortness 05/04/22 10/28/23 Rx aerosol inhaler of breath or wheezing 90 days #20.1 grams calcitriol 0.25 mcg capsule 0.25 mcg PO QAM #90 caps 05/27/22 10/28/23 Rx fluticasone furoate 100 1 ea inhalation QAM 08/03/22 10/28/23 History mcg-vilanterol 25 mcg/dose inhalation powder (Breo Ellipta) metformin 500 mg tablet,extended 500 mg PO QAM 08/03/22 10/28/23 History release 24 hr venlafaxine 150 mg 150 mg PO QAM #90 caps 08/07/22 10/28/23 Rx capsule,extended release 24 hr furosemide 40 mg tablet (Lasix) 40 mg PO 3XWK 10/12/22 10/28/23 History dextromethorphan-guaifenesin 30 1 tab PO Q12H PRN Congestion 12/18/22 10/28/23 History mg-600 mg tablet extended [id number] hr (Mucinex DM) apixaban 5 mg tablet (Eliquis) 5 mg PO BIDM 06/28/23 10/28/23 History metoprolol tartrate 100 mg tablet 100 mg PO BIDM 06/28/23 10/28/23 History spironolactone 50 mg tablet 100 mg PO DAILY 10/28/23 10/28/23 History Patient History Medical History S/P transesophageal echocardiogram ([facility]) [place] resident [place] Non-functioning kidney Renal artery stenosis Dizziness Rapid atrial fibrillation Peripheral neuropathy Stage 3 chronic kidney disease Type 2 diabetes mellitus Fibromyalgia Surgical History History of stent insertion of renal artery (~12/03/16) Family History Father Prostate cancer Sister Breast cancer Brother Lung cancer Sister Lung cancer Denies family history of Ovarian cancer Myocardial infarction Colorectal cancer Social History Smoking Status: Unknown if ever smoked Tobacco Type: Cigarettes Age Started Using Tobacco: 21; packs per day: 0.25; Cigarettes Per Day: 5; Second Hand Exposure: No; Do You Dip or Chew Tobacco: No; Hx Alcohol Use: No Hx Substance Use: No Preferred Language: Vietnamese Communication Ability: Effective Visual Impairment: Limited Hearing Ability: Hard of Hearing Hull Grinder Required: No Beliefs That Will Affect Care: None marital status: / Current Living Situation: Correction Current Living Situation Comment: viktoria current occupational status: retired current occupation: retired from career working on her farm Other Information That Helps Us Care for You: No Feels Safe at Home: Yes Safety Concerns: Feels Safe At This Time Childhood Exposure to Second-Hand Smoke: Yes Diet: regular Dental Care, Regularly: No Physical Activity Frequency: Does not Exercise Seatbelt Use: always Sunscreen Use: No Assistive Devices: None Physical Exam Physical Exam: On exam she is resting comfortably in bed in no acute distress. Left upper extremity exam reveals no bruising or deformity. She is sensory intact to light touch median ulnar radial and axillary nerve distributions. She wiggles her fingers and moves her hand and wrist and elbow spontaneously. For her shoulder she is able to actively forward flex approximately 100 degrees, and AB duct approximately 75 degrees without any discomfort. She performs active internal/external rotation without any discomfort. She has mild tenderness over the clavicle but no tenderness over the acromion. No tenderness over the humerus or forearm. She was complaining of the pulse oximeter on her long finger bothering her. Left lower extremity exam reveals the patient have mild swelling around the ank le laterally more than medially. No deformity. No bruising. She is able to wiggle her toes without difficulty. Dorsi and plantarflexion of the ankle is intact without pain. She reports mild tenderness over the lateral aspect of the ankle nonspecific in location. Nontender over the medial malleolus and medial ankle. Palpable dorsalis pedis pulse. She reports sensation intact to moving light touch in the dorsal and plantar aspects of her foot. Anterior drawer and talar tilt tests are negative. Results & Data Vital Signs (Past 12 Hours) Vital Signs Temp Pulse Pulse Resp BP BP Pulse Ox 10/29/23 08:04 36.4 C L 10/29/23 07:58 130 H 84/42 L 91 10/29/23 07:51 119 H 18 10/29/23 07:45 120 H 17 94 10/29/23 07:21 113 H 17 93 10/29/23 05:33 97 H 91/61 L 10/29/23 04:01 102/72 10/29/23 04:01 91 H 102/72 10/29/23 04:00 94 H 17 95 10/29/23 03:00 99 H 19 93 10/29/23 02:06 107 H 14 96 10/29/23 01:57 98 H 17 92 10/29/23 01:21 122 H 21 95 10/29/23 01:01 90 91/66 L 10/29/23 00:24 37.0 C 127 H 20 94 10/29/23 00:01 91/66 L 10/28/23 23:48 117 H 15 95 10/28/23 23:13 95/68 L 10/28/23 23:13 95/68 L 10/28/23 23:06 96 H 15 96 10/28/23 23:03 97 H 17 95 10/28/23 22:03 90 21 96 10/28/23 22:01 118/64 10/28/23 22:01 118/64 10/28/23 21:57 91 H 17 95 10/28/23 21:03 94 H 18 96 07/25/24 21:00 94/68 L 10/28/23 21:00 94/68 L 10/28/23 20:54 87 18 95 O2 Del Method O2 Flow Rate 10/29/23 08:04 10/29/23 07:58 Nasal Cannula 2 10/29/23 07:51 10/29/23 07:45 Nasal Cannula 3 10/29/23 07:21 10/29/23 05:33 10/29/23 04:01 10/29/23 04:01 10/29/23 04:00 10/29/23 03:00 10/29/23 02:06 10/29/23 01:57 10/29/23 01:21 10/29/23 01:01 10/29/23 00:24 10/29/23 00:01 10/28/23 23:48 10/28/23 23:13 10/28/23 23:13 10/28/23 23:06 10/28/23 23:03 10/28/23 22:03 10/28/23 22:01 10/28/23 22:01 10/28/23 21:57 10/28/23 21:03 10/28/23 21:00 10/28/23 21:00 10/28/23 20:54 Diagnostic Findings X-rays done of the left shoulder 3 views and left ankle 2 views done yesterday are individually interpreted by me. In her shoulder I do not visualize an obvious fracture. I do see the lucency on the internal rotation view but do not believe that this is a fracture. In her ankle she has soft tissue swelling as well as some chronic appearing calcification of the deltoid ligament. No acute fracture is visualized.
[2023-10-29] MEDS ORDERED: methylPREDNISolone 125 MG/2 ML VIAL IV SCH (09:00)
[2023-10-29] MEDS ORDERED: METOPROLOL TARTRATE 100 MG TAB PO SCH (09:00)
[2023-10-29] MEDS ORDERED: METOPROLOL TARTRATE 1 MG/ML VIAL IV PRN ×2 (14:34→15:53)
--- NOTE | 2023-10-29 14:39 | Hospitalist Progress Note ---
Date of Service October 29, 2023 Assessment & Plan (1) UTI (urinary tract infection): Plan 88-year-old female from [facility] with PMH of COPD, HFpEF with ACEi/ARB contraindication, hypertension, persistent atrial fibrillation on Eliquis, type 2 diabetes, dyslipidemia presents 10/27 after a fall at home. She was also noted to be in Afib rvr. She is being managed for the following: Fall, unwitnessed Traumatic hematoma forehead Shoulder pain Weakness Fall around 4:30 in the morning of arrival, was found on the ground around 7:45 AM. CPK at 44. [address] head with No acute infarct or intracranial hemorrhage. Left frontal scalp i njury Cervical CT spine without evidence of acute bony injury CXR with stable cardiomegaly. Otherwise, no acute process within the chest Shoulder XR there is possibly be a nondisplaced fracture of the acromion, which is visualized on the internal rotation image only. Ankle XR Soft tissue swelling is seen without evidence of underlying bony abnormality Ortho evaled, no concern of fracture in her shoulder. WBAT. Fall precautions PT/OT evals Acute metabolic encephalopathy: Likely 2/2 infection 2/2 UTI, covid - continue abx. CT head w/ no acute intracranial findings. Acute complicated UTI History of ESBL Admitting UA suggestive of UTI, follow culture Continue with ertapenem 10/27. Contact precaution. Infection due to COVID-19 virus: Tested + on 10/27, isolation precaution, incentive is permitted, wean down oxygen as tolerated, receiving steroid for COPD exacerbation. Acute exacerbation of COPD: Likely in the setting of viral infection, see above. Continue with DuoNebs, IV Solu-Medrol, supplemental oxygen. Wean down oxygen as tolerated. Atrial fibrillation with rapid ventricular response: Noted to be in A-fib with RVR at presentation, will resume home metoprolol dose with as needed IV metoprolol. Cardio consult, await recs. Other chronic medical conditions: Continue with/resume home meds as and when able Diastolic CHF: Appears dry clinically, BNP stable. Holding diuretics in favor of increased dose requirement for metoprolol. Likely resume diuretics tomorrow. T2DM: A1c of 7.3 in September 2022. Sliding scale insulin while in hospital CKD stage III: Baseline creatinine around 1.2. Monitor. Hypertension: Continue metoprolol, diuretics on hold, follow closely. DVT prophylaxis: Patient on Eliquis. CODE STATUS: DNR/DNI PCP: Jayna rodriguez Dispo: PT/OT, admitted to PCU, to assist with DC planning. Admission and Anticipated Discharge Date Admission Date: October 28, 2023 Subjective Patient was seen and examined at bedside. Patient was lying in bed, on 2 L oxygen via nasal cannula, appears confused. ROS not able in detail, denies pain though. Per RN no new acute event overnight. Physical Exam Physical Exam: GENERAL: Alert and oriented x self and place. NAD, on 2L NC O2. Remains confused, appears ill/frail/weak. HEENT: No pallor, no icterus. Pupils equal, round and reactive to light. Oral mucosa moist. NECK: No JVD, no neck masses. HEART: S1 and S2 heard. irregular rate and rhythm. tachycardia. No murmur, no gallop. RESPIRATORY SYSTEM: Normal AP diameter. No accessory muscle use. No wheezing, bl rhonci. ABDOMEN: Soft, bowel sounds present, nontender, no distention. CENTRAL NERVOUS SYSTEM: No facial droop. Speech is clear. Obeys simple commands. Moves extremities. EXTREMITIES: No edema, no erythema seen. Results & Data Results & Data Vital Signs (Past 12 Hours) Vital Signs Temp Pulse Pulse Resp BP BP Pulse Ox 10/29/23 12:41 141 H 161/110 H 10/29/23 12:34 36.4 C L 163 H 19 161/110 H 92 10/29/23 09:05 125 H 10/29/23 09:00 115 H 22 10/29/23 08:55 132/91 10/29/23 08:42 130 H 24 93 10/29/23 08:38 162/101 H 10/29/23 08:38 162/101 H 10/29/23 08:30 144 H 15 80 L 10/29/23 08:15 118 H 23 93 10/29/23 08:04 36.4 C L 10/29/23 08:00 109 H 10/29/23 07:58 130 H 84/42 L 91 10/29/23 07:51 119 H 18 10/29/23 07:45 120 H 17 94 10/29/23 07:30 10/29/23 07:21 113 H 17 93 10/29/23 05:33 97 H 91/61 L 07/26/24 04:01 102/72 10/29/23 04:01 91 H 102/72 10/29/23 04:00 94 H 17 95 10/29/23 03:00 99 H 19 93 O2 Del Method O2 Flow Rate 10/29/23 12:41 10/29/23 12:34 Nasal Cannula 2 10/29/23 09:05 10/29/23 09:00 10/29/23 08:55 10/29/23 08:42 10/29/23 08:38 10/29/23 08:38 10/29/23 08:30 10/29/23 08:15 10/29/23 08:04 10/29/23 08:00 10/29/23 07:58 Nasal Cannula 2 10/29/23 07:51 10/29/23 07:45 Nasal Cannula 3 10/29/23 07:30 Nasal Cannula 2 10/29/23 07:21 10/29/23 05:33 10/29/23 04:01 10/29/23 04:01 10/29/23 04:00 10/29/23 03:00
--- NOTE | 2023-10-29 15:18 | Cardiology Consultation ---
Date of Consultation October 29, 2023 Assessment & Plan (1) Atrial fibrillation with rapid ventricular response: (2) Anticoagulant long-term use: (3) Diastolic CHF: (4) Frequent falls: Plan 1. Atrial fibrillation with rapid heart rate: I think there is a question as to whether she has been taking her medications and here she is refusing oral medications. She is receiving metoprolol IV as needed, but it is not controlling her heart rate. I would recommend using intravenous heart rate control medications for the time being, perhaps when she has improved clinically she will be more cooperative and take oral medications. I believe her heart rate was controlled in the office on metoprolol 100 mg twice a day so I think heart rate control can be achieved. I am going to start with Toprol tartrate 5 mg every 6 hours and diltiazem 5 mg/h, we can titrate diltiazem. Her blood pressure was low earlier today but that may have been using her right arm with a low blood pressure, with her left arm her blood pressure seems to be high. 2. Anticoagulation: She is refusing Eliquis, she is starting intravenous heparin. Hopefully we can transition her back to oral treatments. 3. Congestive heart failure: I do not think that is a significant factor in her presentation, I would be careful with however. 4. Falling: I doubt her falls are rhythm related, she is not showing any evidence of bradycardia and I doubt that it is tachycardia related unless she is orthostatic. We can check that before she goes home. History of Present Illness Reason for Consultation: Atrial fibrillation with rapid ventricular response Attending Physician: Amber Mills MD History of Present Illness This is an 88-year-old woman who typically follows with Dr. Russell in the office although has not been seen there since December 2022. She has a history of permanent atrial fibrillation as well as hypertension and mild mitral regurgitation. She does have severe left ventricular hypertrophy and diastolic congestive heart failure. She had been on amiodarone for her atrial fibrillation but that was discontinued when rate control rather than rhythm control was chosen. She was hospitalized from June 28, 2023 through July 14, 2023 with hypoxic respiratory failure secondary to lower lobe pneumonia, diastolic heart failure and COPD. She presented now to the emergency room on October 28, 2023 from [facility] with a probable fall, her history may not be reliable. She did have a left frontal head injury and what appeared to be an acute metabolic encephalopathy and seems to have a urinary tract infection. She is also positive for COVID but. She has been in atrial fibrillation with a rapid ventricular response. Her home medications are reported to be Eliquis 5 mg twice a day and metoprolol tartrate 100 mg twice a day for her atrial fibrillation, although there is a questionable history of taking them reliably and as needed. Here she is on metoprolol tartrate 5 mg IV every 4 hours as well as metoprolol tartrate 100 mg twice a day orally but it sounds as though she is refusing to and her heart rate has remained fast. She is very hard of hearing and confused, and being COVID-positive I did not enter her room to interview her. Allergies Allergy/AdvReac Type Severity Reaction Status Date / Time SOLANGE Inhibitors Allergy Unknown ON [facility] Verified 06/28/23 20:17 MED LIST alendronate sodium Allergy Unknown ON [facility] Verified 06/28/23 20:17 MED LIST ARB-Angiotensin Receptor Allergy Unknown Unknown Verified 06/28/23 20:17 Antagonist cisapride Allergy Unknown UNKNOWN Verified 06/28/23 20:17 diazepam Allergy Unknown ON [facility] Verified 06/28/23 20:17 MED LIST nabumetone Allergy Unknown ON [facility] Verified 06/28/23 20:17 MED LIST NSAIDS (Non-Steroidal Allergy Unknown ON [facility] Verified 06/28/23 20:17 Anti-Inflamma MED LIST phenazopyridine Allergy Unknown ON [facility] Verified 06/28/23 20:17 MED LIST Sulfa (Sulfonamide Allergy Unknown ON [facility] Verified 06/28/23 20:17 Antibiotics) MED LIST sulindac Allergy Unknown ON [facility] Verified 06/28/23 20:17 MED LIST duloxetine AdvReac Severe Diarrhea Verified 06/28/23 20:17 Home Medications Medication Instructions Recorded Confirmed Type docusate sodium 100 mg capsule 200 mg PO BIDM 12/24/19 10/28/23 History (Stool Softener) acetaminophen 325 mg tablet 650 mg PO Q6H PRN PAIN/FEVER 01/07/22 10/28/23 History (Tylenol) atorvastatin 10 mg tablet (Lipitor) 10 mg PO QAM #90 tabs 03/25/22 10/28/23 Rx umeclidinium 62.5 mcg/actuation 1 inh inhalation QAM #30 ea 04/21/22 10/28/23 Rx blister powder for inhalation (Incruse Ellipta) albuterol sulfate 90 mcg/actuation 1 inh inhalation QID PRN shortness 05/04/22 10/28/23 Rx aerosol inhaler of breath or wheezing 90 days #20.1 grams calcitriol 0.25 mcg capsule 0.25 mcg PO QAM #90 caps 05/27/22 10/28/23 Rx fluticasone furoate 100 1 ea inhalation QAM 08/03/22 10/28/23 History mcg-vilanterol 25 mcg/dose inhalation powder (Breo Ellipta) metformin 500 mg tablet,extended 500 mg PO QAM 08/03/22 10/28/23 History release 24 hr venlafaxine 150 mg 150 mg PO QAM #90 caps 08/07/22 10/28/23 Rx capsule,extended release 24 hr furosemide 40 mg tablet (Lasix) 40 mg PO 3XWK 10/12/22 10/28/23 History dextromethorphan-guaifenesin 30 1 tab PO Q12H PRN Congestion 12/18/22 10/28/23 History mg-600 mg tablet extended [id number] hr (Mucinex DM) apixaban 5 mg tablet (Eliquis) 5 mg PO BIDM 06/28/23 10/28/23 History metoprolol tartrate 100 mg tablet 100 mg PO BIDM 06/28/23 10/28/23 History spironolactone 50 mg tablet 100 mg PO DAILY 10/28/23 10/28/23 History Patient History Medical History S/P transesophageal echocardiogram ([facility]) [place] Non-functioning kidney Renal artery stenosis Dizziness Rapid atrial fibrillation Peripheral neuropathy Stage 3 chronic kidney disease Type 2 diabetes mellitus Fibromyalgia Surgical History History of stent insertion of renal artery (~12/03/16) Family History Father Prostate cancer Sister Breast cancer Brother Lung cancer Sister Lung cancer Denies family history of Ovarian cancer Myocardial infarction Colorectal cancer Social History Smoking Status: Unknown if ever smoked Tobacco Type: Cigarettes Age Started Using Tobacco: 21; packs per day: 0.25; Cigarettes Per Day: 5; Second Hand Exposure: No; Do You Dip or Chew Tobacco: No; Hx Alcohol Use: No Hx Substance Use: No Preferred Language: Croatian Communication Ability: Effective Visual Impairment: Limited Hearing Ability: Hard of Hearing Channel Marketing Program Manager Required: No Beliefs That Will Affect Care: None marital status: / Current Living Situation: Snf Current Living Situation Comment: viktoria current occupational status: retired current occupation: retired from career working on her farm Other Information That Helps Us Care for You: No Feels Safe at Home: Yes Safety Concerns: Feels Safe At This Time Childhood Exposure to Second-Hand Smoke: Yes Diet: regular Dental Care, Regularly: No Physical Activity Frequency: Does not Exercise Seatbelt Use: always Sunscreen Use: No Assistive Devices: Walker Review of Systems Review of Systems: Other I did not attempt a review of systems Physical Exam Physical Exam: I did not examine her, that has been done by several physicians Results & Data Vital Signs (Past 12 Hours) Vital Signs Temp Pulse Pulse Resp BP BP Pulse Ox 10/29/23 15:02 111 H 10/29/23 14:59 36.2 C L 103 H 20 155/76 H 91 10/29/23 12:41 141 H 161/110 H 10/29/23 12:34 36.4 C L 163 H 19 161/110 H 92 10/29/23 09:05 125 H 10/29/23 09:00 115 H 22 10/29/23 08:55 132/91 10/29/23 08:42 130 H 24 93 10/29/23 08:38 162/101 H 10/29/23 08:38 162/101 H 10/29/23 08:30 144 H 15 80 L 10/29/23 08:15 118 H 23 93 10/29/23 08:04 36.4 C L 10/29/23 08:00 109 H 10/29/23 07:58 130 H 84/42 L 91 10/29/23 07:51 119 H 18 10/29/23 07:45 120 H 17 94 10/29/23 07:30 10/29/23 07:21 113 H 17 93 10/29/23 05:33 97 H 91/61 L 10/29/23 04:01 102/72 10/29/23 04:01 91 H 102/72 10/29/23 04:00 94 H 17 95 O2 Del Method O2 Flow Rate 10/29/23 15:02 10/29/23 14:59 Nasal Cannula 2 10/29/23 12:41 10/29/23 12:34 Nasal Cannula 2 10/29/23 09:05 10/29/23 09:00 10/29/23 08:55 10/29/23 08:42 10/29/23 08:38 10/29/23 08:38 10/29/23 08:30 10/29/23 08:15 10/29/23 08:04 10/29/23 08:00 10/29/23 07:58 Nasal Cannula 2 10/29/23 07:51 10/29/23 07:45 Nasal Cannula 3 10/29/23 07:30 Nasal Cannula 2 10/29/23 07:21 10/29/23 05:33 10/29/23 04:01 10/29/23 04:01 10/29/23 04:00 Laboratory Results Cardiac Enzymes 10/28/23 Range/Units 15:22 B-Natriuretic Peptide 335 H (0-100) pg/ml Coagulation 10/28/23 Range/Units 15:22 B-Natriuretic Peptide 335 H (0-100) pg/ml CBC 10/29/23 Range/Units 04:33 WBC 8.47 (4.8-10.8) K/ul RBC 4.23 (4.20-5.40) M/uL Hgb 13.3 (12.0-16.0) g/dl Hct 40.4 (37.0-47.0) % Plt Count 215 (130-400) K/uL Comprehensive Metabolic Panel 10/29/23 Range/Units 04:33 Sodium 135 L (136-145) mmol/L Potassium 4.1 (3.5-5.1) mmol/L Chloride 106 (98-107) mmol/L Carbon Dioxide 22 (21-32) mmol/L BUN 21 (6-23) mg/dl Creatinine 0.83 D (0.6-1.2) mg/dl Glucose 162 H (70-99(Fasting)) mg/dl Calcium 9.3 (8.6-10.3) mg/dl Intake and Output 10/29/23 10/29/23 10/29/23 06:59 14:59 22:59 Intake Total 1000 / 1999 240 / 240 Output Total 200 / 600 Balance 800 / 1400 240 / 240 Intake: IV 999 / 2000 Lactated Ringer's 1,000 ml @ 1000 / 1000 125 mls/hr IV .Q8H SAGAR Rx#: [id number] Oral 0 / 0 240 / 240 Output: Urine Amount (Catheter) 200 / 600 External 200 / 600 Other: # Unmeasured Voids 2 Weight 65.4 kg Weight Measurement Method Built in [facility] Diagnostic Findings Telemetry: Atrial fibrillation with a rapid heart rate, it is averaging around 120 bpm visually. Very little diurnal heart rate variation. PG Care Time/CCT Total # of Minutes Spent Total Time Spent with Patient: Total time spent is greater than 50% in coordination of care (as documented) at patient's floor/unit and/or counseling patient: Coding Level of Care Code 96164 INT INP/OBS CARE 2/55MIN Diagnoses Atrial fibrillation with rapid ventricular response I48.91 Anticoagulant long-term use Z79.01 Diastolic CHF I50.30 Frequent falls R29.6
[2023-10-29] MEDS: SPIRONOLACTONE 100 MG TAB PO SCH (15:40)
[2023-10-29] MEDS ORDERED: Heparin IV Adult Wt-Based Low-Dose *NO* INITIAL Bolus Protocol IV STA (15:52)
[2023-10-29] MEDS ORDERED: ALBUT/IPRATROP 3MG/0.5MG NEB 3 ML VIAL NEB PRN (16:03)
[2023-10-29] MEDS ORDERED: STAT IV Infusion **Titration per Protocol STA (16:14)
[2023-10-29] MEDS ORDERED: HEPARIN SODIUM/DEXTROSE 25,000 UNITS/500 ML BAG IV SCH (16:15)
[2023-10-29] MEDS: METOPROLOL TARTRATE 100 MG TAB PO SCH (16:23)
[2023-10-29] MEDS: dilTIAZem HCl 5 MG/ML 5 ML VIAL IV STA (16:26)
[2023-10-29] MEDS: dilTIAZem HCL 125 MG in DEXTROSE 5% 100 ML IV SCH (16:50)
[2023-10-29] MEDS: ENOXAPARIN 80 MG/0.8 ML SYR SQ SCH (17:53)
[2023-10-29] MEDS: METOPROLOL TARTRATE 1 MG/ML VIAL IV SCH (17:58)
[2023-10-30 06:54] LABS: Hematocrit (blood only) 41.9 % (37.0-47.0); Hemoglobin 13.5 g/dl (12.0-16.0); Mean Corpuscular Hemoglobin 31.3 pg (25.0-34.0); Mean Corpuscular Hgb Conc 32.2 g/dL (32.0-36.0); Mean Platelet Volume 9.5 fL (9.4-12.4); Platelet Count 226 K/uL (130-400); RDW Coefficient of Variation 13.4 % (11.5-14.5); RDW Standard Deviation 48.1 fL (36.4-46.3); Red Blood Count 4.32 M/uL (4.20-5.40); White Blood Count 10.51 K/ul (4.8-10.8)
[2023-10-30 07:06] LABS: BUN Creatinine Ratio 22.5 (10-20); Calcium 8.9 mg/dl (8.6-10.3); Creatinine Clr Calc Pharmacy 44.6 ml/min; Est GFR (African American) 76.8 ml/min; Est GFR (Non-African American) 66.3 ml/min; Potassium 3.8 mmol/L (3.5-5.1)
--- NOTE | 2023-10-30 13:07 | Hospitalist Progress Note ---
Date of Service October 30, 2023 Assessment & Plan (1) UTI (urinary tract infection): Plan 88-year-old female from [facility] with PMH of COPD, HFpEF with ACEi/ARB contraindication, hypertension, persistent atrial fibrillation on Eliquis, type 2 diabetes, dyslipidemia presents 10/27 after a fall at home. She was also noted to be in Afib rvr. She is being managed for the following: Fall, unwitnessed Traumatic hematoma forehead Shoulder pain Weakness Fall around 4:30 in the morning of arrival, was found on the ground around 7:45 AM. CPK at 44. CT head with No acute infarct or intracranial hemorrhage. Left frontal scalp i njury Cervical CT spine without evidence of acute bony injury CXR with stable cardiomegaly. Otherwise, no acute process within the chest Shoulder XR there is possibly be a nondisplaced fracture of the acromion, which is visualized on the internal rotation image only. Ankle XR Soft tissue swelling is seen without evidence of underlying bony abnormality Ortho evaled, no concern of fracture in her shoulder. WBAT. Fall precautions PT/OT evals Acute metabolic encephalopathy: Likely 2/2 infection 2/2 UTI, covid - continue abx. CT head w/ no acute intracranial findings. menatation improving. Acute complicated UTI History of ESBL Admitting UA suggestive of UTI, UCx contaminant. Continue with ertapenem 10/27. total 5 day course. Infection due to COVID-19 virus: Tested + on 10/27, isolation precaution, encourage incentive spirometer. wean down oxygen as tolerated, receiving steroid for COPD exacerbation. Acute exacerbation of COPD: Likely in the setting of viral infection, see above. Continue with DuoNebs [facility] (still w/ rhonci), IV Solu-Medrol, supplemental oxygen. Wean down oxygen as tolerated. Atrial fibrillation with rapid ventricular response: Noted to be in A-fib with RVR at presentation, cardio managing, on diltiazem drip and iv metoprolol, will follow further recs. dc lovenox, rsume eliquis from mateo AM. Other chronic medical conditions: Continue with/resume home meds as and when able Diastolic CHF: Appears dry clinically, BNP stable. Holding diuretics in favor of increased dose requirement for metoprolol. Likely resume diuretics tomorrow. T2DM: A1c of 7.3 in September 2022. Sliding scale insulin while in hospital CKD stage III: Baseline creatinine around 1.2. Monitor. Hypertension: Continue metoprolol, diuretics on hold, follow closely. DVT prophylaxis: Patient on Eliquis. CODE STATUS: DNR/DNI PCP: Jayna rodriguez Dispo: PT/OT, admitted to PCU, CM to assist with DC planning. Admission and Anticipated Discharge Date Admission Date: October 28, 2023 Subjective Patient was seen and examined at bedside. Patient was lying in bed, on 2 L oxygen via nasal cannula. ROS not able in detail, very [place]. Noted to have wet cough at bedside. Denies pain. Is oriented today and cooperative. Per RN no new acute event overnight. Physical Exam Physical Exam: GENERAL: Alert and oriented. NAD, on 2L NC O2. appears ill/frail/weak. HEENT: No pallor, no icterus. Pupils equal, round and reactive to light. Oral mucosa moist. NECK: No JVD, no neck masses. HEART: S1 and S2 heard. irregular rate and rhythm. No murmur, no gallop. RESPIRATORY SYSTEM: Normal AP diameter. No accessory muscle use. bl crackles and rhonci ABDOMEN: Soft, bowel sounds present, nontender, no distention. CENTRAL NERVOUS SYSTEM: No facial droop. Speech is clear. Obeys simple commands. Moves extremities. EXTREMITIES: No edema, no erythema seen. Results & Data Results & Data Vital Signs (Past 12 Hours) Vital Signs Temp Pulse Pulse Resp BP BP Pulse Ox 10/30/23 12:32 36.8 C 88 19 181/82 H 90 10/30/23 08:23 36.7 C 108 H 20 169/97 H 93 10/30/23 08:00 10/30/23 08:00 79 10/30/23 04:15 36.6 C 79 18 154/97 H 94 10/30/23 01:35 85 157/87 H 10/30/23 01:35 85 157/87 H O2 Del Method O2 Flow Rate 10/30/23 12:32 Room Air 10/30/23 08:23 Nasal Cannula 2 10/30/23 08:00 Nasal Cannula 2 10/30/23 08:00 10/30/23 04:15 Nasal Cannula 2 10/30/23 01:35 10/30/23 01:35
[2023-10-30] MEDS: ALBUT/IPRATROP 3MG/0.5MG NEB 3 ML VIAL NEB SCH (15:22)
[2023-10-31 09:48] LABS: Hematocrit (blood only) 43.4 % (37.0-47.0); Hemoglobin 14.2 g/dl (12.0-16.0); Mean Corpuscular Hemoglobin 30.7 pg (25.0-34.0); Mean Corpuscular Hgb Conc 32.7 g/dL (32.0-36.0); Mean Corpuscular Volume 93.9 fL (80.0-100.0); Mean Platelet Volume 9.4 fL (9.4-12.4); Platelet Count 245 K/uL (130-400); RDW Coefficient of Variation 13.2 % (11.5-14.5); RDW Standard Deviation 45.6 fL (36.4-46.3); Red Blood Count 4.62 M/uL (4.20-5.40); White Blood Count 9.38 K/ul (4.8-10.8)
[2023-10-31 10:03] LABS: BUN Creatinine Ratio 22.9 (10-20); Calcium 9.1 mg/dl (8.6-10.3); Est GFR (African American) 73.5 ml/min; Est GFR (Non-African American) 63.4 ml/min; Magnesium 1.8 mg/dl (1.7-2.4); Phosphorus 2.9 mg/dl (2.5-4.9)
--- NOTE | 2023-10-31 14:49 | Hospitalist Progress Note ---
Date of Service October 31, 2023 Assessment & Plan (1) UTI (urinary tract infection): Plan 88-year-old female from [facility] with PMH of COPD, HFpEF with ACEi/ARB contraindication, hypertension, persistent atrial fibrillation on Eliquis, type 2 diabetes, dyslipidemia presents 10/27 after a fall at home. She was also noted to be in Afib rvr. She is being managed for the following: Fall, unwitnessed Traumatic hematoma forehead Shoulder pain Weakness Fall around 4:30 in the morning of arrival, was found on the ground around 7:45 AM. CPK at 44. CT head with No acute infarct or intracranial hemorrhage. Left frontal scalp i njury Cervical CT spine without evidence of acute bony injury CXR with stable cardiomegaly. Otherwise, no acute process within the chest Shoulder XR there is possibly be a nondisplaced fracture of the acromion, which is visualized on the internal rotation image only. Ankle XR Soft tissue swelling is seen without evidence of underlying bony abnormality Ortho evaled, no concern of fracture in her shoulder. WBAT. Fall precautions PT/OT evals Acute metabolic encephalopathy: Likely 2/2 infection 2/2 UTI, covid - continue abx. CT head w/ no acute intracranial findings. mentation improving. Acute complicated UTI History of ESBL Admitting UA suggestive of UTI, UCx contaminant. Continue with ertapenem 10/27. total 5 day course. Infection due to COVID-19 virus: Tested + on 10/27, isolation precaution, encourage incentive spirometer. now on RA. Acute exacerbation of COPD: Likely in the setting of viral infection, see above. Continue with DuoNebs [facility] (still w/ rhonci), IV Solu-Medrol, supplemental oxygen. Wean down oxygen as tolerated. Atrial fibrillation with rapid ventricular response: Noted to be in A-fib with RVR at presentation, d/w cardio- will dc diltiazem drip and iv metoprolol, resumed home metoprolol dose. c/w tele monitoring. Other chronic medical conditions: Continue with/resume home meds as and when able Diastolic CHF: c/w home diuretics. extra dose of lasix today. T2DM: A1c of 7.3 in September 2022. Sliding scale insulin while in hospital CKD stage III: Baseline creatinine around 1.2. Monitor. Hypertension: Continue metoprolol, diuretics on hold, follow closely. DVT prophylaxis: Patient on Eliquis. CODE STATUS: DNR/DNI PCP: Jayna rodriguez Dispo: PT/OT, admitted to PCU, to assist with DC planning. Admission and Anticipated Discharge Date Admission Date: October 28, 2023 Subjective Patient was seen and examined at bedside. Patient was lying in bed, on RA. ROS not able in detail, very [place]. Denies pain. Is oriented and cooperative. Per RN, eating ok and moving bowels ago. Per RN no new acute event overnight. Physical Exam Physical Exam: GENERAL: Alert and oriented. NAD, on RA. appears ill/frail/weak. HEENT: No pallor, no icterus. Pupils equal, round and reactive to light. Oral mucosa moist. NECK: No JVD, no neck masses. HEART: S1 and S2 heard. irregular rate and rhythm. No murmur, no gallop. RESPIRATORY SYSTEM: Normal AP diameter. No accessory muscle use. bl crackles and rhonci ABDOMEN: Soft, bowel sounds present, nontender, no distention. CENTRAL NERVOUS SYSTEM: No facial droop. Speech is clear. Obeys simple commands. Moves extremities. EXTREMITIES: No edema, no erythema seen. Results & Data Results & Data Vital Signs (Past 12 Hours) Vital Signs Temp Pulse Pulse Pulse Resp BP BP 10/31/23 14:39 91 H 16 10/31/23 12:39 95 H 166/85 H 10/31/23 12:25 36.5 C 105 H 19 10/31/23 12:22 105 H 160/74 H 10/31/23 10:47 92 H 16 10/31/23 08:23 36.7 C 82 19 170/76 H 10/31/23 08:12 10/31/23 07:03 72 16 10/31/23 06:40 69 10/31/23 06:07 68 10/31/23 05:44 79 BP Pulse Ox O2 Del Method 10/31/23 14:39 93 Room Air 10/31/23 12:39 10/31/23 12:25 106/74 93 Room Air 10/31/23 12:22 10/31/23 10:47 92 Room Air 10/31/23 08:23 92 Room Air 10/31/23 08:12 Room Air 10/31/23 07:03 92 Room Air 10/31/23 06:40 10/31/23 06:07 10/31/23 05:44
[2023-10-31] MEDS: FUROSEMIDE 40 MG TAB PO ONE (16:07)
[2023-11-01 06:56] LABS: BUN Creatinine Ratio 29.7 (10-20); Calcium 9.2 mg/dl (8.6-10.3); Creatinine Clr Calc Pharmacy 54.1 ml/min; Est GFR (African American) 84.4 ml/min; Est GFR (Non-African American) 72.8 ml/min; Magnesium 1.9 mg/dl (1.7-2.4); Phosphorus 3.3 mg/dl (2.5-4.9); Potassium 3.6 mmol/L (3.5-5.1)
[2023-11-01] MEDS: FUROSEMIDE 40 MG TAB PO SCH (08:29)
[2023-11-01] MEDS ORDERED: ALBUT/IPRATROP 3MG/0.5MG NEB 3 ML VIAL NEB PRN (12:25)
--- NOTE | 2023-11-01 14:45 | Hospitalist Progress Note ---
Date of Service November 01, 2023 Assessment & Plan (1) UTI (urinary tract infection): Plan 88-year-old female from [facility] with PMH of COPD, HFpEF with ACEi/ARB contraindication, hypertension, persistent atrial fibrillation on Eliquis, type 2 diabetes, dyslipidemia presents 10/27 after a fall at home. She was also noted to be in Afib rvr. She is being managed for the following: Fall, unwitnessed Traumatic hematoma forehead Shoulder pain Weakness Fall around 4:30 in the morning of arrival, was found on the ground around 7:45 AM. CPK at 44. CT head with No acute infarct or intracranial hemorrhage. Left frontal scalp i njury Cervical CT spine without evidence of acute bony injury CXR with stable cardiomegaly. Otherwise, no acute process within the chest Shoulder XR there is possibly be a nondisplaced fracture of the acromion, which is visualized on the internal rotation image only. Ankle XR Soft tissue swelling is seen without evidence of underlying bony abnormality Ortho evaled, no concern of fracture in her shoulder. WBAT. Fall precautions PT/OT evals Acute metabolic encephalopathy: Likely 2/2 infection 2/2 UTI, covid - continue abx. CT head w/ no acute intracranial findings. mentation about baseline. Acute complicated UTI History of ESBL Admitting UA suggestive of UTI, UCx contaminant. s/p ertapenem course. Infection due to COVID-19 virus: Tested + on 10/27, isolation precaution, encourage incentive spirometer. now on RA. Acute exacerbation of COPD: Likely in the setting of viral infection, see above. Continue with DuoNebs prn, IV Solu-Medrol to po steroid from mateo/taper steroid. Lung sounds improving. Atrial fibrillation with rapid ventricular response: Noted to be in A-fib with RVR at presentation, cardio evaled, c/w home metoprolol dose. rate controlled. Other chronic medical conditions: Continue with/resume home meds as and when able Diastolic CHF: c/w home diuretics. extra dose of lasix today. T2DM: A1c of 7.3 in September 2022. Sliding scale insulin while in hospital CKD stage III: Baseline creatinine around 1.2. Monitor. Hypertension: Continue metoprolol, diuretics on hold, follow closely. DVT prophylaxis: Patient on Eliquis. CODE STATUS: DNR/DNI PCP: Jayna rodriguez Dispo: PT/OT, stable for dc, cm working on placement, likely mateo per cm. Admission and Anticipated Discharge Date Admission Date: October 28, 2023 Subjective Patient was seen and examined at bedside. Patient was lying in bed, on RA. ROS not able in detail, very [place]. Denies pain. Is oriented and cooperative. Per RN, eating ok and moving bowels ok. Per RN no new acute event overnight. Physical Exam Physical Exam: GENERAL: Alert and oriented. NAD, on RA. appears ill/frail/weak. HEENT: No pallor, no icterus. Pupils equal, round and reactive to light. Oral mucosa moist. NECK: No JVD, no neck masses. HEART: S1 and S2 heard. irregular rate and rhythm. No murmur, no gallop. RESPIRATORY SYSTEM: Normal AP diameter. No accessory muscle use. bl crackles and rhonci -improved ABDOMEN: Soft, bowel sounds present, nontender, no distention. CENTRAL NERVOUS SYSTEM: No facial droop. Speech is clear. Obeys simple commands. Moves extremities. EXTREMITIES: No edema, no erythema seen. Results & Data Results & Data Vital Signs (Past 12 Hours) Vital Signs Temp Pulse Pulse Resp BP BP Pulse Ox 11/01/23 12:15 36.5 C 81 18 150/94 H 93 11/01/23 11:17 73 16 97 11/01/23 09:12 11/01/23 08:23 36.6 C 81 19 170/87 H 93 11/01/23 07:35 80 11/01/23 07:15 82 17 98 11/01/23 03:47 37.0 C 88 20 171/75 H 97 O2 Del Method 11/01/23 12:15 Room Air 11/01/23 11:17 Room Air 11/01/23 09:12 Room Air 11/01/23 08:23 Room Air 11/01/23 07:35 11/01/23 07:15 Room Air 11/01/23 03:47 Room Air
[2023-11-01] MEDS: predniSONE 20 MG TAB PO SCH (17:06)
--- NOTE | 2023-11-01 20:34 | XRay Report ---
XR chest 1V portable CLINICAL HISTORY: aspiration event, ?foreign body in airway TECHNIQUE: Single frontal radiograph of the chest was obtained. Comparison: Comparison is made to chest radiograph 10/28/2023 FINDINGS: No lines and tubes are seen. Cardiomegaly is noted. The aortic arch is calcified. Prominence and ceph alization of the vasculature is seen. Airspace opacities in the left lateral lung. No evidence of ple ural effusion or pneumothorax. IMPRESSION: Airspace opacity in the lateral left lung which may represent a focus of aspiration. Cardiomegaly and mild pulmonary edema. ACT 112: Negative or not required by law. Electronically signed by: Wong Ramos M.D. 11/01/2023 8:33 PM
[2023-11-01] MEDS: SODIUM CHLORIDE 0.9% 1,000 ML IV SCH (20:50)
[2023-11-02 08:08] LABS: BUN Creatinine Ratio 36.8 (10-20); Calcium 8.8 mg/dl (8.6-10.3); Creatinine Clr Calc Pharmacy 42.1 ml/min; Est GFR (African American) 62.4 ml/min; Est GFR (Non-African American) 53.9 ml/min
--- NOTE | 2023-11-02 14:23 | Hospitalist Progress Note ---
Date of Service November 02, 2023 Assessment & Plan (1) UTI (urinary tract infection): Plan 88-year-old female from [facility] with PMH of COPD, HFpEF with ACEi/ARB contraindication, hypertension, persistent atrial fibrillation on Eliquis, type 2 diabetes, dyslipidemia presents 10/27 after a fall at home. She was also noted to be in Afib rvr. She is being managed for the following: Fall, unwitnessed Traumatic hematoma forehead Shoulder pain Weakness Fall around 4:30 in the morning of arrival, was found on the ground around 7:45 AM. CPK at 44. CT head with No acute infarct or intracranial hemorrhage. Left frontal scalp i njury Cervical CT spine without evidence of acute bony injury CXR with stable cardiomegaly. Otherwise, no acute process within the chest Shoulder XR there is possibly be a nondisplaced fracture of the acromion, which is visualized on the internal rotation image only. Ankle XR Soft tissue swelling is seen without evidence of underlying bony abnormality Ortho evaled, no concern of fracture in her shoulder. WBAT. Fall precautions PT/OT evals Acute metabolic encephalopathy: Likely 2/2 infection 2/2 UTI, covid - continue abx. CT head w/ no acute intracranial findings. mentation about baseline. Acute complicated UTI History of ESBL Admitting UA suggestive of UTI, UCx contaminant. s/p ertapenem course 10/27-10/31. Aspiration event: In the evening of 10/31. Patient has been afebrile, no cough/no shortness of breath. Patient denies chest pain. Patient has been on room air. No crackles or rhonchi on exam. CXR with foci of aspiration in the lateral left lung. Speech consulted, further dietary recommendation after speech eval. Monitor the patient off of antibiotic. Soft tissue neck x-ray with no foreign body per my interpretation, await formal radiology read. Infection due to COVID-19 virus: Tested + on 10/27, isolation precaution, encourage incentive spirometer. now on RA. Acute exacerbation of COPD: Likely in the setting of viral infection, see above. Continue with DuoNebs prn, c/w po steroid/taper steroid. Lung sounds improved. Atrial fibrillation with rapid ventricular response: Noted to be in A-fib with RVR at presentation, cardio evaled, c/w home metoprolol dose. rate controlled. Other chronic medical conditions: Continue with/resume home meds as and when able Diastolic CHF: c/w home diuretics. T2DM: A1c of 7.3 in September 2022. Sliding scale insulin while in hospital CKD stage III: Baseline creatinine around 1.2. Monitor. Hypertension: Continue metoprolol, diuretics on hold, follow closely. DVT prophylaxis: Patient on Eliquis. CODE STATUS: DNR/DNI PCP: Jayna rodriguez Dispo: PT/OT, stable for dc, cm working on placement, likely mateo per . Admission and Anticipated Discharge Date Admission Date: October 28, 2023 Subjective Patient was seen and examined at bedside. Patient was lying in bed, on RA. ROS not able in detail, very [place]. Denies pain. Is oriented and cooperative. Had aspiration event evening of 10/31, currently on room air, denies fever or cough, patient has been afebrile. Denies chest pain or shortness of breath. Physical Exam Physical Exam: GENERAL: Alert and oriented. NAD, on RA. appears ill/frail/weak. HEENT: No pallor, no icterus. Pupils equal, round and reactive to light. Oral mucosa moist. NECK: No JVD, no neck masses. HEART: S1 and S2 heard. irregular rate and rhythm. No murmur, no gallop. RESPIRATORY SYSTEM: Normal AP diameter. No accessory muscle use. no crackles, no wheeze ABDOMEN: Soft, bowel sounds present, nontender, no distention. CENTRAL NERVOUS SYSTEM: No facial droop. Speech is clear. Obeys simple commands. Moves extremities. EXTREMITIES: No edema, no erythema seen. Results & Data Results & Data Vital Signs (Past 12 Hours) Vital Signs Temp Pulse Pulse Resp BP BP Pulse Ox 11/02/23 14:08 78 11/02/23 11:37 36.8 C 80 19 154/96 H 91 11/02/23 08:15 36.6 C 79 17 169/86 H 92 11/02/23 07:57 73 11/02/23 07:50 11/02/23 02:49 36.6 C 74 16 154/83 H 98 O2 Del Method 11/02/23 14:08 11/02/23 11:37 Room Air 11/02/23 08:15 Room Air 11/02/23 07:57 11/02/23 07:50 Room Air 11/02/23 02:49 Room Air
--- NOTE | 2023-11-02 15:22 | Fluoroscopy Report ---
FL video swallow CLINICAL HISTORY: r/o aspiration TECHNIQUE: Video fluoroscopy of the pharyngeal region was performed as barium mixtures of varying con sistencies were administered to the patient by the speech pathologist. A formal esophagram was not pe rformed. Comparison: None available at the time of this dictation. FINDINGS: Total fluoroscopy time: 2.46 minutes. Radiation dose: 18.9 mGy. The patient swallowed the different barium consistencies without difficulty. There was no laryngeal v estibular penetration or susan tracheal aspiration. Retention of contrast in the esophagus is noted. IMPRESSION: No evidence of aspiration. Please see the speech pathology report for further details. ACT 112: Negative or not required by law. Electronically signed by: Wong Ramos M.D. 11/02/2023 3:21 PM
--- NOTE | 2023-11-02 17:09 | XRay Report ---
XR soft tissue neck CLINICAL HISTORY: ro airway foreign body. TECHNIQUE: 2 views of the neck were obtained. Comparison: Comparison is made to CT cervical spine 10/28/2023 FINDINGS: The airway is patent without evidence of abnormal narrowing. The bones are anatomically aligned. Dege nerative changes are seen in the cervical spine. IMPRESSION: Normal ACT 112: Negative or not required by law. Electronically signed by: Wong Ramos M.D. 11/02/2023 5:08 PM
[2023-11-03] MEDS: FUROSEMIDE 40 MG/4 ML VIAL IV ONE (03:31)
[2023-11-03 06:32] LABS: Hematocrit (blood only) 50.6 % (37.0-47.0); Hemoglobin 16.8 g/dl (12.0-16.0); Mean Corpuscular Hemoglobin 31.2 pg (25.0-34.0); Mean Corpuscular Hgb Conc 33.2 g/dL (32.0-36.0); Mean Corpuscular Volume 94.1 fL (80.0-100.0); Mean Platelet Volume 9.3 fL (9.4-12.4); Platelet Count 333 K/uL (130-400); RDW Coefficient of Variation 13.2 % (11.5-14.5); RDW Standard Deviation 45.8 fL (36.4-46.3); Red Blood Count 5.38 M/uL (4.20-5.40); White Blood Count 8.35 K/ul (4.8-10.8)
[2023-11-03 06:56] LABS: BUN Creatinine Ratio 33.3 (10-20); Calcium 9.2 mg/dl (8.6-10.3); Creatinine Clr Calc Pharmacy 33.3 ml/min; Est GFR (African American) 47.1 ml/min; Est GFR (Non-African American) 40.6 ml/min; Magnesium 2.1 mg/dl (1.7-2.4); Phosphorus 4.6 mg/dl (2.5-4.9); Potassium 4.2 mmol/L (3.5-5.1)
--- NOTE | 2023-11-03 06:58 | XRay Report ---
XR chest 1V portable CLINICAL HISTORY: low o2 TECHNIQUE: Single frontal radiograph of the chest was obtained. Comparison: Comparison is made to chest radiograph 11/01/2023 FINDINGS: No lines and tubes are seen. The cardiomediastinal silhouette is normal. Reticular interstitial opaci ties are seen. No evidence of pleural effusion or pneumothorax. IMPRESSION: Previously noted pulmonary edema has improved. Cardiomegaly. ACT 112: Negative or not required by law. Electronically signed by: Wong Ramos M.D. 11/03/2023 6:57 AM
--- NOTE | 2023-11-03 16:28 | Hospitalist Progress Note ---
Date of Service November 03, 2023 Assessment & Plan (1) UTI (urinary tract infection): Plan 88-year-old female from [facility] with PMH of COPD, HFpEF with ACEi/ARB contraindication, hypertension, persistent atrial fibrillation on Eliquis, type 2 diabetes, dyslipidemia presents 10/27 after a fall at home. She was also noted to be in Afib rvr. She is being managed for the following: Fall, unwitnessed Traumatic hematoma forehead Shoulder pain Weakness Fall around 4:30 in the morning of arrival, was found on the ground around 7:45 AM. CPK at 44. CT head with No acute infarct or intracranial hemorrhage. Left frontal scalp i njury Cervical CT spine without evidence of acute bony injury CXR with stable cardiomegaly. Otherwise, no acute process within the chest Shoulder XR there is possibly be a nondisplaced fracture of the acromion, which is visualized on the internal rotation image only. Ankle XR Soft tissue swelling is seen without evidence of underlying bony abnormality Ortho evaled, no concern of fracture in her shoulder. WBAT. Fall precautions PT/OT evals Acute metabolic encephalopathy: Likely 2/2 infection 2/2 UTI, covid CT head w/ no acute intracranial findings. mentation about baseline. Acute complicated UTI History of ESBL Admitting UA suggestive of UTI, UCx contaminant. s/p ertapenem course 10/27-10/31. Aspiration event: In the evening of 10/31. CXR on 10/31 with foci of aspiration in the lateral left lung. Speech eval noted Video study did not show aspiration Aspiration precaution COVID 19 infection: Acute exacerbation of COPD: Tested + on 10/27, isolation precaution, encourage incentive spirometer. Continue with DuoNebs prn On prednisone taper Required oxygen overnight. Now on RA Get 2 step in AM prior to dc Atrial fibrillation with rapid ventricular response: Noted to be in A-fib with RVR at presentation Cards eval noted Continue metoprolol and eliquis home meds Other chronic medical conditions: Continue with/resume home meds as and when able Diastolic CHF: c/w home diuretics. T2DM: A1c of 7.3 in September 2022. Sliding scale insulin while in hospital CKD stage III: Baseline creatinine around 1.2. Monitor. DVT prophylaxis: Patient on Eliquis. CODE STATUS: DNR/DNI PCP: [facility] Dispo: Plan to return to [facility] with HH. Call to daughter was unanswered I spent a total of 45 minutes coordinating, documenting and providing care for this patient excluding time spent in performance of separately billed services Admission and Anticipated Discharge Date Admission Date: October 28, 2023 Subjective Patient seen and examined ROS limited due to hearing deficits Patient denied any chest pain, cough or shortness of breath Physical Exam Constitutional: + well hydrated; no acute distress Eyes: PERRL, conjunctivae normal, anicteric sclerae ENMT: +Hearing deficits Respiratory: normal respiratory effort, lungs clear to auscultation Cardiovascular: Rate/Rhythm: + irregularly irregular S1 S2 Gastrointestinal (Abdomen): normal bowel sounds, soft, nontender, no hepatosplenomegaly Musculoskeletal: No pedal edema Neurologic: PERRL, EOMI, accommodation nl, no face palsy, no dysarthria Results & Data Results & Data Vital Signs (Past 12 Hours) Vital Signs Pulse Pulse Resp BP Pulse Ox O2 Del Method 11/03/23 14:00 93 H 11/03/23 11:30 61 18 132/76 94 Room Air 11/03/23 08:00 Nasal Cannula 11/03/23 08:00 81 Laboratory Results Abnormal lab results 11/02/23 11/02/23 11/03/23 Range/Units 17:06 20:07 05:50 Hgb 16.8 H (12.0-16.0) g/dl Hct 50.6 H (37.0-47.0) % MPV 9.3 L (9.4-12.4) fL BUN 40 H (6-23) mg/dl BUN/Creatinine Ratio 33.3 H (10-20) POC Glucose 115 H 161 H (70-99) mg/dl 11/03/23 11/03/23 Range/Units 13:24 16:43 Hgb (12.0-16.0) g/dl Hct (37.0-47.0) % MPV (9.4-12.4) fL BUN (6-23) mg/dl BUN/Creatinine Ratio (10-20) POC Glucose 158 H 178 H (70-99) mg/dl
[2023-11-04] MEDS: predniSONE 20 MG TAB PO SCH (08:53)
[2023-11-04] MEDS ORDERED: predniSONE 20 MG TAB PO SCH (09:00)
--- NOTE | 2023-11-04 12:22 | Discharge Summary ---
Date of Service November 04, 2023 Admission HPI Per Admitting Provider This is an 88-year-old female from [facility] with PMH of COPD, HFpEF with a's/ARB contraindicated, hypertension, persistent atrial fibrillation on Eliquis, type 2 diabetes, dyslipidemia and other medical problems listed below who presents after a fall at home. Hit her left side of forehead with some associated pain. Fall was unwitnessed but thought to be around 430 this morning. Was found down on the ground around 745. Denies any loss of consciousness. Does have some residual left elbow and left ankle pain. More lethargic on admission evaluation - ABG and CT head added. ROS unobtainable 2/2 reduced consciousness. Admission Exam Per Admitting Provider GENERAL APPEARANCE: AxO0, difficult to arouse, maintaining airway HEENT: NC, AT. MMM. EOMI, clear conjunctiva, oropharynx clear. NECK: Supple without lymphadenopathy. No stiffness or restricted ROM. HEART: tachycardic irregularly irregular LUNGS: scatter rhonchi audible ABDOMEN: Soft, nontender, nondistended with good bowel sounds heard. BACK: No CVAT, no obvious deformity. EXTREMITIES: Without cyanosis, clubbing or edema. NEUROLOGICAL: Grossly nonfocal. withdrawals all 4 extremities. CN not formally tested but appear grossly intact. Observed to ambulate with normal gait. Skin: left ankle swelling without erythema, Principal Diagnosis Urinary tract infection COVID 19 infection COPD exacerbation Discharge Exam Constitutional + well hydrated; no acute distress Eyes PERRL, conjunctivae normal, anicteric sclerae ENMT external ear and nose normal, oropharynx normal Respiratory normal respiratory effort, lungs clear to auscultation Cardiovascular Rate/Rhythm: + irregularly irregular Gastrointestinal (Abdomen) normal bowel sounds, soft, nontender, no hepatosplenomegaly Musculoskeletal No pedal edema Neurologic PERRL, EOMI, accommodation nl, no face palsy, no dysarthria Psychiatric Awake and alert, oriented to person and place. At baseline mental status per daughters Discharge Data Allergies Allergy/AdvReac Type Severity Reaction Status Date / Time SOLANGE Inhibitors Allergy Unknown ON [facility] Verified 06/28/23 20:17 MED LIST alendronate sodium Allergy Unknown ON [facility] Verified 06/28/23 20:17 MED LIST ARB-Angiotensin Receptor Allergy Unknown Unknown Verified 06/28/23 20:17 Antagonist cisapride Allergy Unknown UNKNOWN Verified 06/28/23 20:17 diazepam Allergy Unknown ON [facility] Verified 06/28/23 20:17 MED LIST nabumetone Allergy Unknown ON [facility] Verified 06/28/23 20:17 MED LIST NSAIDS (Non-Steroidal Allergy Unknown ON [facility] Verified 06/28/23 20:17 Anti-Inflamma MED LIST phenazopyridine Allergy Unknown ON [facility] Verified 06/28/23 20:17 MED LIST Sulfa (Sulfonamide Allergy Unknown ON [facility] Verified 06/28/23 20:17 Antibiotics) MED LIST sulindac Allergy Unknown ON [facility] Verified 06/28/23 20:17 MED LIST duloxetine AdvReac Severe Diarrhea Verified 06/28/23 20:17 Consultations 10/28/23 11:04 ED Decision to Admit Stat 10/28/23 12:25 Consult Orthopedic Surgery Routine 10/29/23 08:40 Consult Cardiology Routine Ordered Studies 10/28/23 09:01 CT cervical spine wo con Stat CT head/brain wo con Stat 10/28/23 13:37 CT head/brain wo con Urgent 11/02/23 13:45 FL video swallow Routine Hospital Course (1) UTI (urinary tract infection): Plan 88-year-old female from [facility] with PMH of COPD, HFpEF with ACEi/ARB contraindication, hypertension, persistent atrial fibrillation on Eliquis, type 2 diabetes, dyslipidemia presents 10/27 after a fall at home. She was also noted to be in Afib rvr. She is being managed for the following: Fall, unwitnessed Traumatic hematoma forehead Shoulder pain Weakness Fall around 4:30 in the morning of arrival, was found on the ground around 7:45 AM. CPK at 44. CT head with No acute infarct or intracranial hemorrhage. Left frontal scalp injury Cervical CT spine without evidence of acute bony injury CXR with stable cardiomegaly. Otherwise, no acute process within the chest Shoulder XR there is possibly be a nondisplaced fracture of the acromion, which is visualized on the internal rotation image only. Ankle XR Soft tissue swelling is seen without evidence of underlying bony abnormality Ortho evaled, no concern of fracture in her shoulder. WBAT. Fall precautions PT/OT evaluated Acute metabolic encephalopathy: Likely 2/2 infection 2/2 UTI, covid CT head w/ no acute intracranial findings. Mentation about baseline. Acute complicated UTI History of ESBL Admitting UA suggestive of UTI, UCx contaminant. Completed ertapenem course 10/27-10/31. Aspiration event: In the evening of 10/31. CXR on 10/31 with foci of aspiration in the lateral left lung. Speech eval noted Video study did not show aspiration Aspiration precaution Diet changed to minced and moist. Avoid dry, lumpy, doughy foods. Daughters aware COVID 19 infection: Acute exacerbation of COPD: Tested + on 10/27, isolation precaution, encourage incentive spirometer. Managed with nebs and prednisone Off oxygen. Has been on room air. Cannot do 2 step as patient is wheel chair bound Atrial fibrillation with rapid ventricular response: Noted to be in A-fib with RVR at presentation Cards eval noted Continue metoprolol and eliquis home meds Other chronic medical conditions: Diastolic CHF: c/w home diuretics. T2DM: A1c of 7.3 in September 2022. CKD stage III: Baseline creatinine around 1.2. Updated daughters at bedside Total Time Total Time Spent Total Time Spent (In Minutes): 35 Total Time Includes: Examination of the Patient, Discharge Planning, Medication Reconciliation and Other Discharge Plan Discharge Items Patient Disposition: Personal Custodial Reason For Visit: COVID, COPD Discharge Diagnosis: Urinary tract infection COVID 19 infection COPD exacerbation Activity: Resume your previous activity Non-emergency contact: Primary Care Provider Call non-emergency contact if: you have any medication questions Follow-up/Referrals: Jonathan Berger [Primary Care Provider] - Diet: Carb Consistent or DM2 and Heart Healthy Diet Comment: Minced and moist diet. Thin liquids. Addtl Attending Provider Instructions: Mrs Antonio Cornejo were admitted to the hospital and managed for the above listed diagnoses. Please adhere to dietary texture - Minced and moist diet. Avoid foods that are dry, thick, doughy or pasty in nature. You are being discharged back to the facility where you live. Please ensure follow up with your Primary Doctor. It was a pleasure taking care of you. Pending Studies at Discharge: No Stand-Alone Forms: My [employer], Smoking Cessation Skilled Items Patient informed of condition?: Yes DNR: Yes Discharge Level of Care: Other Communicable Disease: Yes Discharge Prognosis: Stable Lines: None Urinary Catheter: No Medications and DC Order Prescriptions: Continued atorvastatin [Lipitor] 10 mg tablet 10 mg PO QAM Qty: 90 3RF albuterol sulfate 90 mcg/actuation HFA aerosol inhaler 1 inh inhalation QID PRN (Reason: shortness of breath or wheezing) 90 Days Qty: 20.1 4RF calcitriol 0.25 mcg capsule 0.25 mcg PO QAM Qty: 90 3RF venlafaxine 150 mg capsule,extended release 24hr 150 mg PO QAM Qty: 90 3RF furosemide [Lasix] 40 mg tablet 40 mg PO [id number] Rx Instructions: 40 mg orally every mon, wed, fri; docusate sodium [Stool Softener] 100 mg Capsule 200 mg PO BIDM acetaminophen [Tylenol] 325 mg Tablet 650 mg PO Q6H MDD 3 GRAMS/24 HOURS PRN (Reason: PAIN/FEVER) Incruse Ellipta 62.5 mcg/actuation Blister With Device 1 inh inhalation QAM Qty: 30 0RF metformin 500 mg tablet extended release 24 hr 500 mg PO QAM fluticasone furoate-vilanterol [Breo Ellipta] 100-25 mcg/dose blister with device 1 ea inhalation QAM Mucinex DM 30-600 mg Tablet Extended Release 12 Hr 1 tab PO Q12H PRN (Reason: Congestion) spironolactone 50 mg tablet 100 mg PO DAILY metoprolol tartrate 100 mg tablet 100 mg PO BIDM Eliquis 5 mg tablet 5 mg PO BIDM Discharge Orders: Discharge Order (Routine); Ordered 11/04/23 Ordered By: Fatemeh Ramirez/Other Patient Handouts: Preventing Falls Preparation Admission Data Admit Date/Time: 10/28/23 11:26 Attending Provider: Fatemeh Patel I. Admit Provider: Mirella Wu Primary Care Provider: Jonathan Berger Other Providers: [place]; Mirella Wu; Matt Llanes; Doug Casanova; Amber Mills Other Interventions: Discharge Summary Assessment (RN) Last Done: 11/04/23 12:26
== END 2023-11-04 13:16 | disposition home health service (06) | DRG 177 ==
LOC: ED 08:49 → SUATTDRO 11:26 → 1E 11:26 → 4W 10-29 18:53